=== PATIENT | female | born 1965 | race African-American/Black ===

== ENCOUNTER 2020-11-10 13:12 | Outpatient (CLI) | payer OTHER, SELFPAY ==
--- NOTE | ~2020-11-10 | MM_ITS ---
EXAMINATION: MM screening [facility] BI w luis e HISTORY: Screening mammogram TECHNIQUE: Craniocaudal and mediolateral oblique 3-D tomosynthesis images were obtained and synthetic 2-D images were generated. CAD analysis was submitted and interpreted. COMPARISON: 06/03/2019, 04/24/2018 BREAST PARENCHYMAL COMPOSITION: The breasts are almost entirely fatty. FINDINGS: There is no evidence of suspicious mass, calcification, or architectural distortion to sugg est malignancy in either breast. There has been no suspicious interval change. IMPRESSION: 1. No mammographic evidence of malignancy. 2. Recommend routine screening mammography in one year. BI-RADS Category 1: Negative Reviewed, dictated and finalized at location A.
--- NOTE | ~2020-11-10 | US_ITS ---
EXAMINATION: US pelvic complete w TV DATE: 11/10/2020 13:44 INDICATION: Pelvic pain. Comparison:Ultrasound dated 03/20/2018 TECHNIQUE: Multiple transabdominal and endovaginal sonographic images of the pelvis performed. FINDINGS: The uterus measures 10.5 x 6.6 x 7.6 cm. There is a heterogeneous hyperechoic mass of the u terus anteriorly measuring 5.2 x 4.9 x 4.3 cm, compatible with a fibroid. The endometrial complex laura sures 1 cm. The ovaries are not visualized. There is no free fluid in the pelvis. There are no abnormal masses seen on either side. IMPRESSION: 1. Enlarged uterus containing 5.2 cm fibroid anteriorly. Reviewed, dictated and finalized at location B.
== END 2020-11-10 13:13 ==
PROVIDERS: Visit Provider Obstetrics & Gynecology
DX: Z12.31 Encounter for screening mammogram for malignant neoplasm of breast (principal); R10.2 Pelvic and perineal pain; N85.2 Hypertrophy of uterus
CPT/HCPCS: 76830; 76856; 77063; 77067

== ENCOUNTER 2023-11-21 08:51 | Outpatient (CLI) | payer BC, SELFPAY ==
--- NOTE | ~2023-11-21 | US_ITS ---
Pelvic ultrasound. Clinical History: Postmenopausal bleeding Technique: Realtime transabdominal and transvaginal scanning of the pelvis was performed. Color flow Doppler and Doppler spectral analysis were performed. Findings: The uterus is anteverted. The endometrial stripe has a thickness of 4 mm. Large anterior w all fibroid measures 6.6 cm in diameter. Neither ovary seen. No other adnexal mass seen. There is no evidence of free fluid in the cul de sac. Impression: 6.6 cm anterior wall fibroid. No abnormal endometrial thickening seen. Reviewed, dictated and finalized at location . Impression: 6.6 cm anterior wall fibroid. No abnormal endometrial thickening seen.
== END 2023-11-21 08:52 ==
PROVIDERS: PCP Nurse Practitioner; Visit Provider Nurse Practitioner
DX: N95.0 Postmenopausal bleeding (principal); D25.9 Leiomyoma of uterus, unspecified
CPT/HCPCS: 76830

== ENCOUNTER 2023-12-24 02:02 | Day surgery (SDC) | payer BC, SELFPAY ==
[2023-12-17 15:28] VITALS: BMI 42.0
--- NOTE | 2023-12-17 15:36 | PC.NURSE ---
Report to the Outpatient Waiting Room, entrance under the green pavilion located off [facility], at time _0830_ on date _[id number]_. Planned Procedure Time: _1030_. Time changes happen often and if your time is changed the preop area will call you the afternoon before. - You and your visitor will be asked to self-screen and do not enter if you have any COVID symptoms. - A mask is optional within the hospital at this time. Patients may have clear liquids (water, carbonated beverages, clear teas, apple juice) until 3 hours prior to surgery with a maximum of 20 ounces. - No food from midnight until time of surgery Take the following medications with a SIP of water the morning of surgery: ___Carvidilol and Hydralazine DO NOT STOP ANY OF YOUR OTHER PRESCRIPTION MEDICATIONS PRIOR TO SURGERY ?EXCEPT THE FOLLOWING Medications to discontinue per physician Turmeric Date to take last [id number] Please no make-up, nail nauruan, hairspray, perfume, deodorant, or body powder the day of surgery. No jewelry (including any body piercings) or valuables the day of surgery, leave them at home. Please take a shower or bath the night before, or the morning of, surgery with an antibacterial soap. Wear comfortable, loose fitting clothing. - Jewelry must be removed prior to entering the operating room. Rings and piercings that are not removed may be cut off. - The hospital will not accept responsibility for valuables. - Please leave all valuables, including medications, at home the day of surgery. If you are going home after surgery, a licensed subway train driver must drive you home. - NO public transportation without another adult if you receive anesthesia. - We recommend that an adult stay with you for 24 hours following discharge. - We also recommend that you do not drive, make important decision, drink alcoholic beverages, or take any drugs that were not prescribed by your health care provider for at least 24 hours after your discharge time. Follow any additional instructions given to you from your surgeon. If you or anyone in your household have experienced Covid symptoms in the past week, please notify your surgeon or the nurse liaison at the phone number below for possible testing. Telephone instructions given to _Mauricio_and asked if any additional questions and then verbalized understanding. Patient advised to call surgeon office or pre surgery nurse liaison [phone] if any additional questions.
--- NOTE | 2023-12-24 07:17 | WPDHPUPDATE1 ---
History and Physical Update Update Date/Time: 12/24/23 07:17 History and Physical has been reviewed, including an updated exam of the patient. There are NO changes in the patient's condition. Risks, benefits, and alternatives have been discussed and questions answered. Patient agrees to proceed with procedure.
--- NOTE | 2023-12-24 07:17 | PM.HPGS ---
History of Present Illness History of Present Illness Consent: Risks, benefits, and alternatives have been discussed and questions answered. Patient agrees to proceed with procedure. Chief complaint: post menopausal bleeding Narrative: Mauricio Flores is a 58 year old female with postmenopausal bleeding. It is recommended to undergo D&C hysteroscopy for further evaluation. Risks of infection, bleeding, perforation, and possible pathology are reviewed. Patient was understanding and agrees to proceed. Review of Systems Review of Systems: not repeated day of surgery; patient states no changes in status [facility] Past Medical History Medical History (Updated 12/24/23 @ 07:20 by Feli Khan MD) Diabetes HTN (hypertension) Surgical History Surgical History (Updated 12/24/23 @ 07:19 by Feli Khan MD) History of bilateral tubal ligation History of x2 History of hysteroscopy 2014,2017,2020 Family History Family History (System 03/01/21 @ 14:49 by Patrick Mcgraw) Father Carcinoma of colon, Onset Age: 39 Mother Diabetes mellitus Hypertension Patient's mother is in good health Sibling Hypertension Patient's sister is in good health Patient's brother is in good health Social History Social History (System 03/01/21 @ 14:49 by Patrick Mcgraw) Smoking status: Never smoker Alcohol intake: never Living arrangements: with family Spiritual care concerns: No Meds Home Medications and Allergies Home Medications Medication Instructions Recorded Confirmed Type carvedilol 25 mg tablet 25 mg PO BID 12/17/23 12/17/23 History hydralazine 100 mg tablet 100 mg PO TID 12/17/23 12/17/23 History turmeric 400 mg capsule 400 mg PO DAILY PRN Pain 12/17/23 12/17/23 History Allergies Allergy/AdvReac Type Severity Reaction Status Date / Time hydrocodone AdvReac Mild RASH Unverified 12/17/23 15:24 strawberry AdvReac Mild RASH/ITCHIN Unverified 12/17/23 15:24 G Exam Const: General: healthy appearing and alert Orientation/consciousness: patient oriented x3 Resp: Effort & Inspection: normal respiratory effort : External Female Exam: normal external appearance Speculum Exam - Vagina: normal appearance of the vagina and normal vaginal discharge Speculum Exam - Cervix: normal appearance of the cervix Bimanual exam- vagina & uterus: uterine size normal and consistency normal Bimanual Exam- Adnexa, other: normal adnexae and No adnexal tenderness Neuro: General: patient oriented x3 Assessment and Plan Assessment and plan (1) Post-menopausal bleeding: Code(s): N95.0 - Postmenopausal bleeding Status: Acute Assessment and Plan: plan to proceed with D&C hysteroscopy
--- NOTE | 2023-12-24 09:23 | P.PNAN_ITS ---
Anes - Initial Pre Proc Eval Procedure: Operation Date: 12/24/23 10:30 Proposed Procedures p Hysteroscopy Dilation and Curettage - Feli Khan MD Date/Time: 12/24/23 09:23 Surgeon: Feli Khan MD Pre Op Diagnosis: post menopausal bleeding Patient Data Age: 58 Gender: F Height: 1.68 m Weight: 118 kg Allergies Allergy/AdvReac Type Severity Reaction Status Date / Time hydrocodone Allergy Mild RASH Unverified 12/24/23 07:58 strawberry AdvReac Mild RASH/ITCHIN Unverified 12/17/23 15:24 G Home Medications Medication Instructions Recorded Confirmed Type carvedilol 25 mg tablet 25 mg PO BID 12/17/23 12/17/23 History hydralazine 100 mg tablet 100 mg PO TID 12/17/23 12/17/23 History turmeric 400 mg capsule 400 mg PO DAILY PRN Pain 12/17/23 12/17/23 History Patient hx anesthesia problems: none Family hx anesthesia problems: none Results Review: All pre-operative results and documents have been reviewed as part of the pre- operative evaluation. [facility] Past Medical History Medical History Diabetes HTN (hypertension) Surgical History Surgical History History of bilateral tubal ligation History of x2 History of hysteroscopy 2014,2017,2020 Family History Family History (System 03/01/21 @ 14:49 by Patrick Mcgraw) Father Carcinoma of colon, Onset Age: 39 Mother Diabetes mellitus Hypertension Patient's mother is in good health Sibling Hypertension Patient's sister is in good health Patient's brother is in good health Social History Social History (System 03/01/21 @ 14:49 by Patrick Mcgraw) Smoking status: Never smoker Alcohol intake: never Living arrangements: with family Spiritual care concerns: No Anes - Eval Final PreProcedure Day of Procedure 12/24/23 09:23 Patient weight: morbidly obese Heart: regular rate and rhythm Lungs: clear to auscultation Airway: Mallampati scale and special considerations (Missing 2 upper teeth, back. ) Neurological: alert and oriented Last oral intake: >/= 8 hours ASA classification: III Emergent: no Anesthetic plan: proceed Anesthesia type and monitoring: general GIVS and standard monitoring Results Review: All pre-operative results and documents have been reviewed as part of the pre- operative evaluation. Informed Consent: The patient's anesthetic plan and its attendant risks and benefits were discussed with the patient/family/POA. Questions were solicited and answers provided to the satisfaction of the patient/family/POA.
[2023-12-24 09:25] VITALS: BP 183/66; PULSE 54; RESP 14; TEMP 36.1; O2SAT 99
[2023-12-24] MEDS: LACTATED RINGERS 1,000 ML 30 ML IV CONT (09:25)
[2023-12-24] MEDS: ACETAMINOPHEN 500 MG TABLET 1000 MG PO (09:25)
[2023-12-24 09:31] LABS: Glucose Point of Care 93 mg/dl (65-105)
[2023-12-24] MEDS: KETOROLAC 30 MG/ML VIAL (*BKC) IV PUSH (10:04)
[2023-12-24 10:13] VITALS: BP 155/72; PULSE 49; RESP 16; O2SAT 96
--- NOTE | 2023-12-24 10:15 | W.PM.PROC2 ---
Procedure Note - Detailed Date of Procedure 12/24/23 Pre-op Diagnosis post menopausal bleeding Post-op Diagnosis Same Procedure Performed Hysteroscopy with D&C Surgeon Feli Khan MD Anesthesia MAC Findings uterus sounds to 10cm and appears grossly very vascular there is an adhesion from the anterior to posterior wall approximately 1/2cm wide near the endocervical junction Description of Procedure The patient is taken to the operating room and placed under anesthesia in the dorsal lithotomy position. She was prepped and draped in the usual sterile fashion. [place] speculum was placed in the vagina and the cervix grasped on the anterior lip with a tenaculum. The cervix is unable to be entered with the uterine sound. The small Hegar dilator is used to enter the endocervix. Uterus is then sounded to 10cm and noted to be quite anteverted. The hysteroscope was placed and the above-stated findings are noted. The adhesion was able to be removed from the posterior wall using the hysteroscope. The remainder of the endometrium appears grossly normal except it is very vascular. The hysteroscope is removed and the OO sharp curette is used to curette the endometrium until a good uterine cry was noted in all areas. All instruments are removed. Sponge, needle, and instrument counts are correct per the OR staff. The patient was awakened from anesthesia and taken to recovery in stable condition. Estimated Blood Loss 5 Drains No Packing No Pathology Yes ( Endometrial curettings) Complications No immediate complications Condition Stable Disposition PACU
[2023-12-24 10:32] LABS: Glucose Point of Care 90 mg/dl (65-105)
[2023-12-24 10:45] VITALS: BP 178/78; PULSE 48; RESP 16; O2SAT 96
[2023-12-24 11:15] VITALS: BP 194/75; PULSE 54; RESP 16
[2023-12-24] MEDS: hydrALAZINE HCL 20 MG/ML VIAL 5 MG IV PUSH ×2 (11:18→11:43)
[2023-12-24 11:45] VITALS: BP 198/81; PULSE 51; RESP 16
[2023-12-24 12:15] VITALS: BP 169/66; PULSE 51; RESP 20
== END 2023-12-24 12:18 | disposition home or self-care (01) ==
PROVIDERS: PCP Nurse Practitioner; Visit Provider Obstetrics & Gynecology Gynecology
PROC: 0U5B8ZZ Destruction of Endometrium, Via Natural or Artificial Opening Endoscopic (ICD-10-PCS; CPT 58563; principal; 2023-12-24 10:30)
DX: N95.0 Postmenopausal bleeding (principal); N73.6 Female pelvic peritoneal adhesions (postinfective); I10 Essential (primary) hypertension; E11.9 Type 2 diabetes mellitus without complications; E66.01 Morbid (severe) obesity due to excess calories; Z68.41 Body mass index [BMI] 40.0-44.9, adult; Z98.890 Other specified postprocedural states; Z98.51 Tubal ligation status; Z80.0 Family history of malignant neoplasm of digestive organs
CPT/HCPCS: 58558; 82948; 88305; A9270; J0360; J1885; J2250; J2405; J2704; J3010; J7120

== ENCOUNTER 2024-03-19 10:20 | Outpatient (CLI) | payer BC, SELFPAY ==
--- NOTE | ~2024-03-19 | MM_ITS ---
EXAMINATION: MM screening [facility] BI w luis e HISTORY: Screening TECHNIQUE: Craniocaudal and mediolateral oblique 3-D tomosynthesis images were obtained and synthetic 2-D images were generated. CAD analysis was submitted and interpreted. COMPARISON: Comparison to multiple prior studies sequentially, with oldest reviewed study dated 04/24. BREAST PARENCHYMAL COMPOSITION: There are scattered areas of fibroglandular density. FINDINGS: There is no evidence of suspicious mass, calcification, or architectural distortion to sugg est malignancy in either breast. There has been no suspicious interval change. IMPRESSION: 1. No mammographic evidence of malignancy. 2. Recommend routine screening mammography in one year. BI-RADS Category 1: Negative Reviewed, dictated and finalized at location B.
== END 2024-03-19 10:21 ==
LOC: MICIMG 10:21
PROVIDERS: PCP Nurse Practitioner; Visit Provider Nurse Practitioner
DX: Z12.31 Encounter for screening mammogram for malignant neoplasm of breast (principal)
CPT/HCPCS: 77063; 77067

== ENCOUNTER 2024-07-01 09:53 | Outpatient (CLI) | payer BC, SELFPAY ==
--- NOTE | ~2024-07-01 | MR_ITS ---
EXAMINATION: MR knee RT wo con DATE: 07/01/2024 11:01 INDICATION: Right knee pain TECHNIQUE: Magnetic resonance imaging (MRI) of the right knee was performed without intravenous contr ast. Sequences included coronal PD-weighted FSE, coronal PD-weighted FS FSE, sagittal T2-weighted FS E, sagittal PD-weighted FS FSE and axial PD weighted fat saturated FSE. COMPARISON: None. FINDINGS: Medial compartment: Medial meniscus is normal. Articular cartilage is normal. Lateral compartment: There is a longitudinal horizontal tear extending to the inferior articular surface extending from th e anterior to the posterior horn. There is an 11 x 5 x 3 mm para meniscal cyst along the periphery of the anterior horn. Articular cartilage is normal. There are small marginal osteophytes along the stanley ghtbearing lateral femoral condyle and lateral tibial plateau. Patellofemoral compartment: There is diffuse partial thickness patellar cartilage loss with more focal deeper chondral ulceration and fissuring with mild scattered underlying subarticular edema-like signal change including at the medial and lateral patellar facets and apical ridge. Mild partial-thickness tear cartilage loss with subtle scattered chondral surface irregularity. Ligaments and tendons: Anterior and posterior cruciate ligaments are normal. The medial collateral ligament and fibular ila ateral ligament complex are normal. Small enthesophytes and mild tendinopathy at the patellar inserti on of the distal quadriceps and proximal patellar tendons. The visualized medial and lateral hamstrin g tendons as well as the iliotibial band are normal. Fluid: Moderate-sized right knee joint effusion. No loose osteochondral bodies identified. Osseous/other: Aside from the mild subarticular edema-like signal change at the patella there is normal bone marrow signal throughout. No fracture or pathologic marrow replacing process. IMPRESSION: 1. Longitudinal horizontal lateral meniscal tear with small para meniscal cyst along the periphery of the anterior horn. 2. 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 3. Moderate-sized right knee joint effusion. Reviewed, dictated and finalized at location B. ATRIC PHYSICIAN IMPRESSION: 1. Longitudinal horizontal lateral meniscal tear with small para meniscal cyst along the periphery of the anterior horn. 2. Mild lateral and patellofemoral osteoarthritis with high-grade patellar edouard dromalacia. 3. Moderate-sized right knee joint effusion.
== END 2024-07-01 09:54 | disposition home or self-care (01) ==
LOC: MICIMG 09:54
PROVIDERS: PCP Orthopaedic Surgery; Visit Provider Orthopaedic Surgery
DX: M25.461 Effusion, right knee (principal); M17.11 Unilateral primary osteoarthritis, right knee; S83.281A Other tear of lateral meniscus, current injury, right knee, initial encounter; X58.XXXA Exposure to other specified factors, initial encounter
CPT/HCPCS: 73721

== ENCOUNTER 2024-07-19 09:40 | Outpatient (CLI) | payer BC, SELFPAY ==
--- NOTE | 2024-07-19 10:06 | ECG_ITS ---
Test Date: 2024-07-19 10:16:40 Measurements Intervals [place] Rate: 54 P: 29 ME: 128 QRS: 47 QRSD: 88 T: 129 QT: 447 QTc: 426 Interpretive Statements SINUS BRADY[address]ARDIA ST DEVIATION AND MODERATE T-WAVE ABNORMALITY, CONSIDER LATERAL ISCHEMIA [-0.1+ mV T-WAVE IN I/aVL/V5/V6] No previous ECG available for comparison Electronically Signed On 07-19-2024 14:45:48 HERITAGE CONSULTANT by Duncan Castro M.D.
[2024-07-19 10:09] LABS: Anion Gap 1 mmol/L (4-12); Blood Urea Nitrogen 18 mg/dL (7-17); Carbon Dioxide 32 mmol/L (22-30); Chloride 104 mmol/L (98-107); Estimated Glomerular Filt Rate 56; Glucose 147 mg/dL (65-110); Potassium 3.7 mmol/L (3.4-5.0); Sodium 137 mmol/L (137-145)
== END 2024-07-19 09:41 | disposition home or self-care (01) ==
LOC: ANHLAB 09:42
PROVIDERS: PCP Nurse Practitioner; Visit Provider Anesthesiology
DX: E11.9 Type 2 diabetes mellitus without complications (principal); I10 Essential (primary) hypertension
CPT/HCPCS: 36415; 80048; 93005

== ENCOUNTER 2024-07-28 00:42 | Day surgery (SDC) | payer BC, SELFPAY ==
[2024-07-18 12:52] VITALS: BMI 44.3
--- NOTE | 2024-07-18 13:18 | PC.NURSE ---
Report to the Outpatient Waiting Room, entrance under the green pavilion located off [facility], at time __6:00AM on date _ Sunday07/28/24 . Planned Procedure Time: _7:30AM .? Time changes happen often and if your time is changed the preop area will call you the afternoon before. - You and your visitor will be asked to self-screen and do not enter if you have any COVID symptoms. Please call surgeon if you need to reschedule. - A mask is optional within the hospital at this time. Patients may have clear liquids (water, carbonated beverages, clear teas, apple juice) until 3 hours prior to surgery with a maximum of 20 ounces. - No food from midnight until time of surgery and no smoking. This includes no chewing gum, candy or mints. Take only the following medications with a SIP of water on the morning of surgery: _CARVEDILOL, ISOSORBIDE, HYDRALAZINE DO NOT STOP ANY OF YOUR OTHER PRESCRIPTION MEDICATIONS PRIOR TO SURGERY EXCEPT THE FOLLOWING Medications to discontinue per physician NONE Date to take last dose Please no make-up, nail luxembourgish, hairspray, perfume, deodorant, or body powder the day of surgery.? No jewelry (including any body piercings) or valuables the day of surgery, leave them at home.? Please take a shower or bath the night before, or the morning of, surgery with an antibacterial soap.? Wear comfortable, loose fitting clothing.? - Jewelry must be removed prior to entering the operating room.? Rings and piercings that are not removed may be cut off. - The hospital will not accept responsibility for valuables.? - Please leave all valuables, including medications, at home the day of surgery. If you are going home after surgery, a licensed commercial driver must drive you home.? - NO public transportation without another adult if you receive anesthesia. - We recommend that an adult stay with you for 24 hours following discharge. - We also recommend that you do not drive, make important decision, drink alcoholic beverages, or take any drugs that were not prescribed by your health care provider for at least 24 hours after your discharge time. Follow any additional instructions given to you from your surgeon. Telephone instructions given to TO and asked if any additional questions and then verbalized understanding. Patient advised to call surgeon office or pre surgery nurse liaison [phone] if any additional questions.
--- NOTE | 2024-07-24 07:29 | PM.IMHP ---
H&P: HPI History of Present Illness Date/Time: 07/24/24 07:29 Chief Complaint: Patient has complaints of knee pain right. He has a meniscal tear with catching and locking. This has been unresponsive to conservative treatment today. He has pain laterally. Review of Systems Musculoskeletal: Musculoskeletal: Reports arthralgias, Reports joint swelling and Reports stiffness Neurologic: Reports abnormal gait [facility] Past Medical History Medical History Diabetes HTN (hypertension) Surgical History Surgical History History of bilateral tubal ligation History of x2 History of cholecystectomy History of dilation and curettage History of hysteroscopy 2014,2017,2020 Family History Family History Father Carcinoma of colon, Onset Age: 39 Mother Diabetes mellitus Hypertension Patient's mother is in good health Sibling Hypertension Patient's sister is in good health Patient's brother is in good health Social History Social History (Updated 07/17/24 @ 09:03 by Fior Daigle CMA) Smoking status: Never smoker Second hand tobacco smoke exposure: No Alcohol intake: never Substance use: never Substance use type: does not use Do You Feel Safe in your Home?: Yes Lack of Transportation: No Lack of Food: Never True Current Housing: I Have Housing Concerned About Future Housing: No Difficulty Paying Gas/Electric Bills: Decline to Answer Difficulty Paying for Meds: No Currently Unemployed: No Education: High School Diploma/GED Difficulty w/ Childcare or Family Care: No Living arrangements: with family Occupation/Education: occupation 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 Gender identity (if verbalized by the patient): Female Spiritual care concerns: No Meds Home Medications and Allergies Home Medications ?Medication ?Instructions ?Recorded ?Confirmed ?Type carvedilol 25 mg tablet 25 mg PO BID 12/17/23 07/18/24 History hydralazine 100 mg tablet 100 mg PO TID 12/17/23 07/18/24 History isosorbide mononitrate 10 mg tablet 10 mg PO BID 07/17/24 07/18/24 History lisinopril 20 1 tablet PO DAILY 07/17/24 07/18/24 History mg-hydrochlorothiazide 25 mg tablet Allergies Allergy/AdvReac Type Severity Reaction Status Date / Time hydrocodone Allergy Mild RASH Verified 07/17/24 08:10 strawberry AdvReac Mild RASH/ITCHIN Verified 07/17/24 08:10 G Exam Narrative: On exam he is tender medially he has catching locking and pain on the laterall aspect of the knee is mechanical-type symptoms. He is able to walk with a limp. Neurologically appears to be grossly intact. He has a positive Adam's and tenderness along the joint line. Eyes: General: appearance normal, both eyes and all related structures Neck: Neck: supple Resp: Effort & Inspection: normal respiratory effort Cardio: Rate: regular rate Rhythm: regular rhythm Radiology Reports: Comments: Patient: Mauricio Becerril EXAMINATION: MR knee RT wo con DATE: 07/01/2024 11:01 INDICATION: Right knee pain TECHNIQUE: Magnetic resonance imaging (MRI) of the right knee was performed without intravenous contrast. Sequences included coronal PD-weighted FSE, coronal PD-weighted FS FSE, sagittal T2-weighted FSE, sagittal PD-weighted FS FSE and axial PD weighted fat saturated FSE. COMPARISON: None. FINDINGS: Medial compartment: Medial meniscus is normal. Articular cartilage is normal. Lateral compartment: There is a longitudinal horizontal tear extending to the inferior articular surface extending from the anterior to the posterior horn. There is an 11 x 5 x 3 mm para meniscal cyst along the periphery of the anterior horn. Articular cartilage is normal. There are small marginal osteophytes along the weightbearing lateral femoral condyle and lateral tibial plateau. Patellofemoral compartment: There is diffuse partial thickness patellar cartilage loss with more focal deeper chondral ulceration and fissuring with mild scattered underlying subarticular edema-like signal change including at the medial and lateral patellar facets and apical ridge. Mild partial-thickness tear cartilage loss with subtle scattered chondral surface irregularity. Ligaments and tendons: Anterior and posterior cruciate ligaments are normal. The medial collateral ligament and fibular collateral ligament complex are normal. Small enthesophytes and mild tendinopathy at the patellar insertion of the distal quadriceps and proximal patellar tendons. The visualized medial and lateral hamstring tendons as well as the iliotibial band are normal. Fluid: Moderate-sized right knee joint effusion. No loose osteochondral bodies identified. Osseous/other: Aside from the mild subarticular edema-like signal change at the patella there is normal bone marrow signal throughout. No fracture or pathologic marrow replacing process. IMPRESSION: 1. Longitudinal horizontal lateral meniscal tear with small para meniscal cyst along the periphery of the anterior horn. 2. 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 3. Moderate-sized right knee joint effusion. Reviewed, dictated and finalized at location B. STANCE REPRESENTATIVE Hip/Pelvis X-Ray 01/22/24 Knee X-Ray 06/10/24 Knee MRI 07/01/24 Orthopedics Result Report 06/10/24 Assessment and Plan Assessment and plan (1) Acute lateral meniscus tear of right knee: Code(s): S83.281A - Other tear of lateral meniscus, current injury, right knee, initial encounter Status: Acute Assessment and Plan: Patient is a lateral meniscal tear right knee. He has catching and locking mechanical type symptoms. He has a positive MRI that demonstrates a tear. He would like to proceed with arthroscopic intervention he has failed conservative treatment. Will proceed with arthroscopy partial meniscectomy proceed as indicated. I have discussed risks, benefits, limitations, and alternatives with the patient in detail he agrees and understands would like to proceed.
[2024-07-28] VITALS (11 sets, daily range): BP systolic 121–143; BP diastolic 47–69; PULSE 47–61; RESP 12–18; TEMP 36.2–36.4; O2SAT 96–100
--- NOTE | 2024-07-28 06:28 | P.PNAN_ITS ---
Anes - Initial Pre Proc Eval Procedure: Operation Date: 07/28/24 07:30 Proposed Procedures p Right Knee Arthroscopy Partial Meniscectomy, Proceed as Indicated - Jeyson Lowery MD Date/Time: 07/28/24 06:28 Surgeon: eJyson Lowery MD Pre Op Diagnosis: right lateral meniscal tear Patient Data Age: 59 Gender: F Height: 1.66 m Weight: 122.7 kg Allergies Allergy/AdvReac Type Severity Reaction Status Date / Time hydrocodone Allergy Mild RASH Verified 07/17/24 08:10 strawberry AdvReac Mild RASH/ITCHIN Verified 07/17/24 08:10 G Home Medications ?Medication ?Instructions ?Recorded ?Confirmed ?Type carvedilol 25 mg tablet 25 mg PO BID 12/17/23 07/18/24 History hydralazine 100 mg tablet 100 mg PO TID 12/17/23 07/18/24 History isosorbide mononitrate 10 mg tablet 10 mg PO BID 07/17/24 07/18/24 History lisinopril 20 1 tablet PO DAILY 07/17/24 07/18/24 History mg-hydrochlorothiazide 25 mg tablet Patient hx anesthesia problems: none Family hx anesthesia problems: none Results Review: All pre-operative results and documents have been reviewed as part of the pre- operative evaluation. [facility] Past Medical History Medical History (Updated 07/28/24 @ 06:29 by Jose E Maloney DO) Fibroid Glaucoma CVA (cerebral vascular accident) Diabetes HTN (hypertension) Surgical History Surgical History History of dilation and curettage History of cholecystectomy History of hysteroscopy 2014,2017,2020 History of bilateral tubal ligation History of x2 Family History Family History Father Carcinoma of colon, Onset Age: 39 Mother Diabetes mellitus Hypertension Patient's mother is in good health Sibling Hypertension Patient's sister is in good health Patient's brother is in good health Social History Social History (Updated 07/17/24 @ 09:03 by Fior Daigle CMA) Smoking status: Never smoker Second hand tobacco smoke exposure: No Alcohol intake: never Substance use: never Substance use type: does not use Do You Feel Safe in your Home?: Yes Lack of Transportation: No Lack of Food: Never True Current Housing: I Have Housing Concerned About Future Housing: No Difficulty Paying Gas/Electric Bills: Decline to Answer Difficulty Paying for Meds: No Currently Unemployed: No Education: High School Diploma/GED Difficulty w/ Childcare or Family Care: No Living arrangements: with family Occupation/Education: occupation Additional occupation/education comments: work at [employer] Gender identity (if verbalized by the patient): Female Spiritual care concerns: No Anes - Eval Final PreProcedure Day of Procedure 07/28/24 06:28 Patient weight: morbidly obese Heart: regular rate and rhythm Lungs: clear to auscultation Airway: Mallampati scale class II Neurological: alert and oriented Last oral intake: >/= 8 hours ASA classification: III Emergent: no Anesthetic plan: proceed Anesthesia type and monitoring: general LMA and standard monitoring Results Review: All pre-operative results and documents have been reviewed as part of the pre- operative evaluation. Informed Consent: The patient's anesthetic plan and its attendant risks and benefits were discussed with the patient/family/POA. Questions were solicited and answers provided to the satisfaction of the patient/family/POA.
[2024-07-28 06:49] LABS: Glucose Point of Care 146 mg/dl (65-105)
--- NOTE | 2024-07-28 06:56 | WPDHPUPDATE1 ---
History and Physical Update Update Date/Time: 07/28/24 06:56 History and Physical has been reviewed, including an updated exam of the patient. There are NO changes in the patient's condition. Risks, benefits, and alternatives have been discussed and questions answered. Patient agrees to proceed with procedure. Patient understands that I can't change the degenerative changes in the knee.
[2024-07-28] MEDS: ACETAMINOPHEN 500 MG TABLET 1000 MG PO (07:00)
[2024-07-28] MEDS: LACTATED RINGERS 1,000 ML 30 ML IV CONT (07:00)
[2024-07-28] MEDS: KETOROLAC 15 MG/ML VIAL (*BKC) IV PUSH (07:00)
[2024-07-28] MEDS: ceFAZolin 3 GM/D5W 100 ML 100 ML IVPB (07:25)
[2024-07-28] MEDS: LIDO 1%/EPINEPHRINE 1:100,000 50 ML VIAL INFILTRATE (07:46)
--- NOTE | 2024-07-28 07:55 | W.PM.PROC2 ---
Procedure Note - Detailed Date of Procedure 07/28/24 Pre-op Diagnosis RIGHT lateral meniscal tear Post-op Diagnosis Same Procedure Performed RIGHT knee arthroscopy with partial meniscectomy Surgeon Jeyson Lowery MD Anesthesia General Indications Pain and catching Description of Procedure Patient brought to operating room # 8. An anesthetic was administered. The knee was sterilely prepped and draped in the usual manner. Standard portals were used. Superior medial portal was used for the outflow cannula, inferior lateral portal was used for the scope, inferior medial portal was used for the instruments. Arthroscopy was performed, the patellar femoral joint degenerative changes. The medial compartment showed fraying. The lateral compartment showed a complex tear. The ACL was intact. Using baskets and cristina the meniscal tear was trimmed back to a stable base so the nothing further could be pulled into the joint. Any loose or delaminated fragments were gently trimmed to a stable base. She had grade 2-3 changes throughout the knee. At this point the instruments were withdrawn, sutures placed and patient left the operating room in satisfactory condition. Estimated Blood Loss 20 Drains No Packing No Pathology None sent Complications No immediate complications Condition Stable Disposition PACU [facility] Billing Surgery - Charge Forward: Surgery Billing (26265 Scope Partial)
[2024-07-28 08:28] LABS: Glucose Point of Care 147 mg/dl (65-105)
--- OUTSIDE RECORDS SUMMARY | 2024-08-02 09:58 | XMS_ITS | Encounter Summary ---
Author Organization [facility] Health Address [address] [place] [address] Care Team Providers Care Hands Parter Name Role Phone Neil Velasquez MD Primary Care Provider Encounter Details Date Type Department Care Team (Latest Contact Info) Description 07/24/2024 Travel Social History Tobacco Use Types Packs/Day Years Used Date Smoking Tobacco: Never Smokeless Tobacco: Never Alcohol Use Standard Drinks/Week Comments Yes 1 (1 standard drink = 0.6 oz pur e alcohol) socially PHQ-2 Answer Date Recorded Patient Health Questionnaire-2 Score 0 07/24/2024 Sex and Gender Information Value Date Recorded Sex Assigned at Not on file Gender Identity Not on file Sexual Orientation Not on file documented as of this encounter Plan of Treatment Upcoming Encounters Date Type Department Care Team (Late st Contact Info) Description 12/15/2024 1:00 PM CDT Office Visit [facility] - Internal Med [address] [place] [address] Neil Velasquez MD [address] [place], [place] [id number] documented as of this encounter Visit Diagnoses Not on filedocumented in this encounter Care Teams Hands Parter Relationship Specialty Start Date End Date Neil Velasquez MD [address] [place], [place] [id number] PCP - General Internal Medicine 10/24/23 documented as of this encounter
--- OUTSIDE RECORDS SUMMARY | 2024-08-02 09:58 | XMS_ITS | Referral Summary ---
Author Organization [facility] Address [address] [place] [address] Care Team Providers Care Mechanical Service Representative Name Role Phone Neil Velasquez MD Primary Care Provider [phone] Source Comments [facility],non-owned Affiliates and Associated Physician Practices is amultiple site organization consisting of ambulatory clinics and hospital sitesin [place], [place], [place] and [place]. This disclosure is being madepursuant to the Care Everywhere program and may not contain all information available regarding this patient. Last updated 18.[facility] Encounters Date Type Department Care Team Description 07/24/2024 Travel 07/24/2024 1:30 PM AIRPORT DUTY MANAGER Office Visit [facility] - Internal Med [address] [place] [phone] Tami Comer DO Pre-op evaluation (Primary Dx) 07/21/2024 Telephone [facility] - Internal Med [address] [place] [phone] Neil Velasquez MD Forms (/) 07/21/2024 Travel 07/03/2024 4:30 PM AIRPORT DUTY MANAGER - 07/03/2024 11:59 PM AIRPORT DUTY MANAGER Hospital Encounter [facility] [address] [place] [address] Discharge Disposition: Home or Self Care 07/03/2024 Travel 07/03/2024 3:30 PM AIRPORT DUTY MANAGER Office Visit [facility] - Internal Med [address] [place] [address] Tami Comer DO Resistant hypertension (Primary Dx); Cramps of lower extremity 05/08/2024 Travel 05/08/2024 1:30 PM CDT Office Visit [facility] - Internal Med [address] [place] [address] Wound of left lower extremity, initial encounter (Primary Dx); Chronic left-sided low back pain with left-sided sciatica 05/07/2024 Travel 05/06/2024 Travel 05/06/2024 9:25 AM CDT - 05/06/2024 11:59 PM CDT Hospital Encounter [facility] [address] [place] [address] Discharge Disposition: Home or Self Care from Last 3 Months Allergies Active Allergy Reactions Criticality Noted Date Comments Hydrocodone-Acetaminophen Rash 03/26/2008 Vicodin [place] Itching Low 04/06/2016 Medications * Be aware that medications may not be up to date on this document. Alwaysverify current medications with the patient. Medication Sig Dispensed Refills Start Date End Date Status Glucose Blood (BLOOD GLUCOSE TEST STRIPS) STRP Use 1 strip TID. 100 strip 11 07/03/2017 Active Additional Information Patient not taking.Reported on 07/03/2024 LANCETS SUPER THIN 28G MISC Use TID. 100 11 03/13/2017 Active Additional Information Patient not taking.Reported on 07/24/2024 aspirin (ASPIRIN) 81 MG tablet 100 tablet 04/06/2016 Active Ascorbic Acid (ALPHONSE-C PO) Active VITAMIN D PO Active atorvastatin (Lipitor) 40 MG tabletIndications:Es sential hypertension,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),Hyperlipidemia , unspecified hyperlipidemia type Take 1 (one) tablet by mouth once daily 100 tablet 4 05/21/2023 Active Additional Information Patient not taking.Reported on 07/24/2024 tobramycin-dexAMETHa sone (Tobradex) 0.3-0.1 % ophthalmic suspension 09/13/2023 Active lisinopril-hydroCHLO ROthiazide (Prinzide; Zestoretic) 20-25 MG tabletIndications:Re sistant hypertension Take 1 (one) tablet by mouth once daily 90 tablet 3 10/24/2023 Active hydrALAZINE (Apresoline) 100 MG tabletIndications:Re sistant hypertension Take 1 (one) tablet by mouth 3 times daily 270 tablet 3 10/24/2023 Active isosorbide mononitrate CR 24hr (Imdur) 30 MG tabletIndications:Re sistant hypertension Take 1 (one) tablet by mouth once daily 90 tablet 4 10/24/2023 Active carvedilol (Coreg) 25 MG tabletIndications:Es sential hypertension TAKE 1 TABLET BY MOUTH TWICE A DAY WITH MORNING AND EVENING MEAL 180 tablet 2 01/09/2024 Active Active Problems Problem Noted Date Diagnosed Date Left hip pain 03/31/2024 Secondary cataract of right eye 10/24/2023 Healthcare maintenance 09/17/2023 Hypotension due to medication 08/14/2023 Resistant hypertension 07/11/2023 Insomnia 03/14/2023 Chronic heart failure with preserved ejection fr action 04/06/2021 Iron deficiency anemia 01/06/2021 Hyperlipidemia 02/25/2019 Nephropathy 02/25/2019 Microcytosis 02/25/2019 Isolated proteinuria 12/30/2018 Class 3 severe obesity with serious comorbidity and body mass index (BMI) of 45.0 to 49.9 in adult 11/19/2018 Type 2 diabetes mellitus with complications 08/14 Overview (11/12/2017): Eye exam 08/17/2015 Personal history of transien t ischemic attack (TIA), and cerebral infarction without residual deficits 04/12/2015 Family history of ischemic h eart disease and other diseases of the circulatory system 09/19/2014 Essential hypertension 08/31/2014 Resolved Problems Problem Noted Date Diagnosed Date Resolved Date Diabetic polyneuropathy asso ciated with type 1 diabetes mellitus 08/30/2023 10/24/2023 Preventative health care 01/06/2021 Pericardial cyst 02/25/2019 10/24/2023 Pain of both shoulder joints 11/19/2018 06/17/2019 Right upper quadrant abdominal pain 11/19/2018 03/14/2023 Impacted cerumen of right ear 11/19/2018 12/03/2018 Hypertensive emergency 04/12/201511/26 Immunizations Name Administration Dates Next Due Covid Pfizer primary monoval ent 12+ yr 0.3mL Purple cap 08/10/2021,12/23/2020,11/24/2020 FLU, HISTORIC VACCINE 08/13/2017 HEP B, HISTORIC VACCINE [birth year], INFLUENZA 08/13/2017 TDAP (7yrs+) 11/19/2018 Zoster Hzv Vacc Recombinant Inj Im 07/11/2023 Social History Tobacco Use Types Packs/Day Years Used Date Smoking Tobacco: Never Smokeless Tobacco: Never Tobacco Cessation:Counseling Given: Not Answered Alcohol Use Standard Drinks/Week Comments Yes 1 (1 standard drink = 0.6 oz pur e alcohol) socially PHQ-2 Answer Date Recorded Patient Health Questionnaire-2 Score 0 07/24/2024 Sex and Gender Information Value Date Recorded Sex Assigned at Not on file Gender Identity Not on file Sexual Orientation Not on file Last Filed Vital Signs Vital Sign Reading Time Taken Comments Blood Pressure 138/80 07/24/2024 1:27 PM AIRPORT DUTY MANAGER Pulse 72 07/24/2024 1:27 PM AIRPORT DUTY MANAGER Temperature 36.8 ??C (98.2 ??F) 05/08/2024 1:27 PM CD T Respiratory Rate 18 07/24/2024 1:27 PM AIRPORT DUTY MANAGER Oxygen Saturation 97% 07/24/2024 1:27 PM AIRPORT DUTY MANAGER Inhaled Oxygen Concentration - - Weight 121.3 kg (267 lb 6.4 oz) 07/24/2024 1:27 PM AIRPORT DUTY MANAGER Height 167.6 cm (5' 6 ) 07/24/2024 1:27 PM AIRPORT DUTY MANAGER Body Mass Index 43.16 07/24/2024 1:27 PM AIRPORT DUTY MANAGER Plan of Treatment Upcoming Encounters Date Type Department Care Team (Late st Contact Info) Description 12/15/2024 1:00 PM CDT Office Visit [facility] - Internal Med [address] [facility] [place] [address] Neil Velasquez MD [address] [facility] [place] [address] Procedures Procedure Name Priority Date/Time Associated Diagnosis Comments BASIC METABOLIC PANEL (CALCIUM TOTAL) Routine 07/03/2024 4:40 PM AIRPORT DUTY MANAGER Cramps of lower extremity MAGNESIUM BLOOD Routine 07/03/2024 4:40 PM AIRPORT DUTY MANAGER Cramps of lower extremity MICROALB/CREAT RATIO URINE RANDOM PANEL Routine 05/06/2024 9:56 AM CDT 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) IRON BLOOD Routine 05/06/2024 9:50 AM CDT Iron deficiency anemia, unspecified iron deficiency anemia type HEMOGLOBIN A1C Routine 05/06/2024 9:50 AM CDT 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) CBC W/O DIFFERENTIAL Routine 05/06/2024 9:50 AM CDT Iron deficiency anemia, unspecified iron deficiency anemia type BASIC METABOLIC PANEL (CALCIUM TOTAL) Routine 05/06/2024 9:50 AM CDT 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) MAMMO BILAT SCREENING W JAY Routine 12/28/2022 9:25 AM CDT Preventative health care ENDOSCOPY, COLON, SCREENING Routine 12/08/2020 2:44 PM CDT EYE EXAM 06/03/2019 6:27 AM CDT HEPATITIS C ANTIBODY Routine 09/04/2014 9:30 AM AIRPORT DUTY MANAGER from Last 3 Months or Most Recently Relevant to Health Maintenance Results * (ABNORMAL) BASIC METABOLIC PANEL (CALCIUM TOTAL) (07/03/2024 4:40 PM AIRPORT DUTY MANAGER) Only the most recent of2 resultswithin the time period is included. BUN 33(H) 7 - 26 mg/dL 07/03/2024 5:24 PM AIRPORT DUTY MANAGER [facility] Creatinine 1.32(H) 0.56 - 0.96 mg/dL 07/03/2024 5:24 PM [facility] Sodium 141 136 - 145 mmol/L 07/03/2024 5:24 PM [facility] Potassium 4.0 3.5 - 4.5 mmol/L 07/03/2024 5:24 PM [facility] Chloride 110(H) 98 - 107 mmol/L 07/03/2024 5:24 PM [facility] CO2 25 22 - 29 mmol/L 07/03/2024 5:24 PM [facility] Glucose 106(H) 70 - 99 mg/dL 07/03/2024 5:24 PM [facility] Calcium 9.2 8.4 - 10.2 mg/dL 07/03/2024 5:24 PM [facility] Anion Gap 6 6 - 16 07/03/2024 5:24 PM [facility] BUN/Creatinine Ratio 25(H) 7 - 23 07/03/2024 5:24 PM [facility] Osmolality Calculated 300(H) 275 - 295 mOsm/kg 07/03/2024 5:24 PM [facility] eGFR by CKD-EPI 47(L) >=90 mL/min/1.7 3 m2 07/03/2024 5:24 PM [facility] Blood BLOOD SPECIMEN / Unknown Lab Venipuncture / Unknown 07/03/2024 4:40 PM AIRPORT DUTY MANAGER 07/03/2024 4:59 PM AIRPORT DUTY MANAGER Yoanna Francis MD LAB - CHEMISTRY ORD ERABLES [facility] [address] [place] [address], [facility] [phone] * MAGNESIUM BLOOD (07/03/2024 4:40 PM AIRPORT DUTY MANAGER) Magnesium 1.9 1.6 - 2.6 mg/dL 07/03/2024 5:24 PM [facility] Blood BLOOD SPECIMEN / Unknown Lab Venipuncture / Unknown 07/03/2024 4:40 PM AIRPORT DUTY MANAGER 07/03/2024 4:59 PM AIRPORT DUTY MANAGER Yoanna Francis MD LAB - CHEMISTRY ORD ERABLES Performing Organization Address [facility] Co de Phone Number [address] [address], [facility] [phone] * MICROALB/CREAT RATIO URINE RANDOM PANEL (05/06/2024 9:56 AM CDT) Albumin Random Urine 34.2 Not Established ug/mL 05/06/2024 11:11 AM CDT [facility] Creatinine Urine 206.98 Not Established mg/dL 05/06/2024 11:11 AM CDT [facility] Urine Albumin/Creati nine Ratio 17 <30 mg/g 05/06/2024 11:11 AM T [facility] Urine URINE SPECIMEN OBTAINED BY CLEAN CATCH PROCEDURE / Unknown Collection / Unknown 05/06/2024 9:56 AM CDT 05/06/2024 10:20 AM CDT Ronald Casarez MD LAB - URINE CHEMISTR Y ORDERABLES Performing Organization Address [facility] Co de Phone Number [address] [address], [facility] [phone] * (ABNORMAL) HEMOGLOBIN A1C (05/06/2024 9:50 AM CDT) Pathologist [facility] Hemoglobin A1c 6.4(H) <=5.6 % 05/06/2024 11:39 AM T [facility] Estimated Average Glucose 137 mg/dL 05/06/2024 11:39 AM [facility] Comment: HbA1c Interpretation: Normal : < 5.7% Pre-diabetes: 5.7-6.4% Diabetes: Equal to or greater than 6.5% Test results diagnostic of diabetes should be repeated for confirmation. Treatment target values recommended by ADA and other clinical organizations should be used to evaluate metabolic control in patients. Reference: [place] [employer], Standards of Care in Diabetes -2020 In patients 70 years and older consider HbA1c target range of 7.0-7.5% (Reference: Eder Herbert et al. JAMDA. 2012) The Sebia assay for the measurement of HbA1c is a National Glycohemoglobin Standardization Program (NGSP) certified method. Blood BLOOD SPECIMEN / Unknown Lab Venipuncture / Unknown 05/06/2024 9:50 AM CDT 05/06/2024 10:22 AM CDT Ronald Casarez MD LAB - CHEMISTRY [place] Performing Organization Address [facility] Co de Phone Number [facility] [address] [place] [address], [facility] [phone] * CBC W/O DIFFERENTIAL (05/06/2024 9:50 AM CDT) Pathologist [facility] WBC 6.8 4.0 - 10.7 x10E9/L 05/06/2024 10:27 AM [facility] RBC Count 4.89 3.90 - 5.20 x10E12/L 05/06/2024 10:27 AM [facility] Hemoglobin 13.2 11.9 - 15.8 g/dL 05/06/2024 10:27 AM [facility] Hematocrit 40.9 34.8 - 46.1 % 05/06/2024 10:27 AM [facility] MCV 83.6 80.0 - 98.0 fL 05/06/2024 10:27 AM [facility] MCH 27.0 26.7 - 33.6 pg 05/06/2024 10:27 AM [facility] MCHC 32.3 31.7 - 36.3 g/dL 05/06/2024 10:27 AM [facility] RDW-CV 13.0 11.3 - 14.8 % 05/06/2024 10:27 AM [facility] Platelet Count 238 150 - 420 x10E9/L 05/06/2024 10:27 AM [facility] MPV 11.0 7.8 - 11.4 fL 05/06/2024 10:27 AM [facility] Blood BLOOD SPECIMEN / Unknown Lab Venipuncture / Unknown 05/06/2024 9:50 AM CDT 05/06/2024 10:22 AM CDT Ronald Casarez MD LAB - HEMATOLOGY ORD ERABLES [facility] [address] [place] [address], [facility] [phone] * IRON BLOOD (05/06/2024 9:50 AM CDT) Iron 62 40 - 150 ug/dL 05/06/2024 10:55 AM CDT [facility] Blood BLOOD SPECIMEN / Unknown Lab Venipuncture / Unknown 05/06/2024 9:50 AM CDT 05/06/2024 10:20 AM CDT Ronald Casarez MD LAB - CHEMISTRY [place] Performing Organization Address City/[facility]/ZIP Co de Phone Number [address] [address], [facility] [phone] * MAMMO BILAT SCREENING W JAY (12/28/2022 9:25 AM CDT) Anatomical Region Laterality Modality Breast Bilateral Mammography 12/28/2022 9:45 AM CDT Impressions 12/28/2022 10:31 AM CDT : ??No mammographic evidence of malignancy. RECOMMENDATION: ??Screening mammography in one year, pending no interval breast concerns. Patient will be notified of mammography results by lay letter. OVERALL ASSESSMENT: ??BI-RADS CATEGORY 1: NEGATIVE. > Dictated by Genny Umana DO (residential appliance repair technician). I, Annita Mei MD have personally reviewed and interpreted this examination/study. > Interpreting Provider: Annita Mei MD on 12/28/2022 10:31 AM Narrative 12/28/2022 10:31 AM CDT EXAMINATION: DIGITAL MAMMO BILAT SCREENING W JAY AND WITH CAD LOCATION: [facility] DATE: ??12/28/2022 HISTORY: ??Screening. History of breast cancer in her sister at age 56. RISK ASSESSMENT CALCULATION: Patient completed a breast cancer risk assessment during her appointment. Based upon the information she provided and her mammographic breast density, her lifetime risk of developing breast cancer is ??11 % (Average Risk <15%; Intermediate / Moderate Risk 15-19%; High Risk > 20%). COMPARISON: Compare prior mammograms back to 2014. Most recent prior mammogram dated 11/10/2020. TECHNIQUE: Tomosynthesis (3D) and reconstructed synthetic 2-D images acquired and reviewed in the bilateral craniocaudal and mediolateral oblique projections, as well as left CC and MLO nipple in profile views, with a total of 7 images obtained. ??To image breasts in their entirety, additional views obtained. ?? Computer-aided detection (CAD) was utilized. BREAST PARENCHYMAL COMPOSITION: Category A: The breasts are almost entirely fatty. FINDINGS: ??There are no suspicious findings or evidence of malignancy on mammography. There is no significant change from the prior. ?? Ronald Casarez MD MAMMO ORDERABLES * ENDOSCOPY, COLON, SCREENING (12/08/2020 2:44 PM CDT) Report Endoscopy POC Endoscopy Department Report _ Patient Name: Mauricio Cunha Procedure Date: 12/08/2020 2:44 PM ? Date of : 1965 Classification: Outpatient ?Gender: Female Ethnicity: Not or ? Race: Black or _ Providers: ?Sara Ramsey MD Referring MD: ? [facility] Procedure: ?Colonoscopy Indications: ?Screening in patient at increased risk: Family ?history of 1st-degree relative with colorectal ?cancer before age 60 years Medications: ?Monitored Anesthesia Care Description of Procedure: Pre-Anesthesia Assessment: ?- Prior to the procedure, a History and Physical ?was performed, and patient medications and ?allergies were reviewed. The patient's tolerance of ?previous anesthesia was also reviewed. The risks ?and benefits of the procedure and the sedation ?options and risks were discussed with the patient. ?All questions were answered, and informed consent ?was obtained. Prior Anticoagulants: The patient has ?taken no previous anticoagulant or antiplatelet ?agents. ASA Grade Assessment: III - A patient with ?severe systemic disease. After reviewing the risks ?and benefits, the patient was deemed in ?satisfactory condition to undergo the procedure. ?After I obtained informed consent, the scope was ?passed under direct vision. Throughout the ?procedure, the patient's blood pressure, pulse, and ?oxygen saturations were monitored continuously. The ?[id number] was introduced through the anus and ?advanced to the cecum, identified by appendiceal ?orifice and ileocecal valve. The colonoscopy was ?performed without difficulty. The patient tolerated ?the procedure well. The quality of the bowel ?preparation was excellent. The ileocecal valve, ?appendiceal orifice, and rectum were photographed. ? Findings: ? The perianal and digital rectal examinations were normal. ? External hemorrhoids were found during retroflexion. The hemorrhoids ? were medium-sized. ? The entire examined colon appeared normal on direct and retroflexion ? views. ? Estimated Blood Loss: ? Estimated blood loss: none. Complications: ?No immediate complications. Impression: ? - External hemorrhoids. ?- The entire examined colon is normal on direct and ?retroflexion views. ?- No specimens collected. Recommendation: ? - Resume previous diet. ?- Continue present medications. ?- Repeat colonoscopy in 5 years for screening ?purposes, given family history. ? Attending Participation: ??I personally performed the entire procedure. ? Procedure Code(s): ? --- Professional --- ? G0105, Colorectal cancer screening; colonoscopy on individual at high ? risk Diagnosis Code(s): ?--- Professional --- ?Z80.0, Family history of malignant neoplasm of ?digestive organs ?K64.4, Residual hemorrhoidal skin tags CPT copyright 2019 [place] [employer]. All rights reserved. The codes documented in this report are preliminary and upon cardboard cutter review may be revised to meet current compliance requirements. Sara Ramsey MD 12/08/2020 4:01:43 PM Note Initiated On: 12/08/2020 2:44 PM Number of Addenda: 0 ? [facility] ? [address] [place] [address] [facility] 12/08/2020 2:44 PM CDT Sara Haddad MD GI PROCEDURE [place] Performing Organization Address City/State/[facility] Co de Phone Number [facility] * EYE EXAM (06/03/2019 6:27 AM CDT) Anatomical Region Laterality Modality Other Narrative 06/03/2019 6:27 AM CDT Ordered by an unspecified provider. Scanned Document SCANNING ONLY * HEPATITIS C ANTIBODY (09/04/2014 9:30 AM AIRPORT DUTY MANAGER) Hepatitis C Antibody NON-REACTI VE NON-REACT [facility]) Signal/Cutoff 0.03 <1.00 [facility]) Comment: REPORT COMMENT: FASTING:YES Test Performed at: [facility] [address] ??[id number] KATHY PEREZ DO,MPH Blood specimen (specimen) BLOOD SPECIMEN / Unknown 09/04/2014 9:30 AM AIRPORT DUTY MANAGER 09/04/2014 9:31 AM AIRPORT DUTY MANAGER Farheen Lafleur MD LAB - CHEMISTRY [place] [facility] Organization Address City/State/ZIP Co de Phone Number [facility]) from Last 3 Months or Most Recently Relevant to Health Maintenance Care Teams Mechanical Service Representative Relationship Specialty Start Date End Date Neil Velasquez MD [address] [facility] [place] [address] PCP - General Internal Medicine 10/24/23
--- OUTSIDE RECORDS SUMMARY | 2024-08-02 09:58 | XMS_ITS | Encounter Summary ---
Author Organization [facility] Health Address [address] [place] [address] Care Team Providers Care Housing Management Officer Name Role Phone Neil Velasquez MD Primary Care Provider [phone] Reason for Visit * Reason Comments Medical Clearance Encounter Details Date Type Department Care Team (Late st Contact Info) Description 07/24/2024 1:30 PM DOWELING MACHINE OPERATOR Office Visit [facility] - Internal Med [address] [place] [id number] Tami Comer, DO [address] [facility] [place] [address] Pre-op evaluation (Primary Dx) Social History Tobacco Use Types Packs/Day Years [...] on file documented as of this encounter Last Filed Vital Signs Vital Sign Reading Time Taken Comments Blood Pressure 138/80 07/24/2024 1:27 PM DOWELING MACHINE OPERATOR Pulse 72 07/24/2024 1:27 PM DOWELING MACHINE OPERATOR Temperature - - Respiratory Rate 18 07/24/2024 1:27 PM DOWELING MACHINE OPERATOR Oxygen Saturation 97% 07/24/2024 1:27 PM DOWELING MACHINE OPERATOR Inhaled Oxygen Concentration - - Weight 121.3 kg (267 lb 6.4 oz) 07/24/2024 1:27 PM DOWELING MACHINE OPERATOR Height 167.6 cm (5' 6 ) 07/24/2024 1:27 PM DOWELING MACHINE OPERATOR Body Mass Index 43.16 07/24/2024 1:27 PM DOWELING MACHINE OPERATOR documented in this encounter Patient Instructions * Patient Instructions* Hedy Zhang MA - 07/24/2024 1:32 PM DOWELING MACHINE OPERATOR [facility] Internal Medicine is a Patient Centered Medical Home (PCMH) recognized practice. PCMH is a model of care that puts patients at the forefront of care. PCM centers build better relationships between patients and their clinical care teams. Practices that earn this recognition have made a commitment to continuous quality improvement and a patient-centered approach to care. [facility] Internal Medicine is committed to providing you with the best care possible. Shared decision making is a ortega component of patient-centered health care. It is a process in whichclinicians and patients work together to make decisions based on clinical evidence that balances risk and expected outcomes with patient preferences and values. How to Contact Us Between Office Visits For scheduling routine appointments, requesting refills or leaving a message for your doctor, the office phone is [phone]. You will be given options to get to the assistance you need. We have both in person and telehealth (telephone and video) appointments available. Phone lines are open from 8:00 am to 4:30 pm Sunday through Sunday. If you become ill and need to be seen before your next visit, we will generally be able to see you that day, although you may see someone other than your own primary care provider. Please call us at [phone], option 1, then option 1 in the morning you would like to be seen. Our fax number is [phone]. Instructions for reaching the practice after office hours For urgent concerns that cannot wait until phone lines are open on the next business day, please call [phone] to speak to the covering General Internal Medicine provider. Identify yourself as a patient in our practice and give the vacuum conditioner operator your doctor's name. The vacuum conditioner operator will contact the physician drywall professional. You can generally expect a return call within 30 minutes. Prescription Refills Contact your pharmacy to request all refills. You may also send a AudioBeta message for refills. Please allow a minimum of 48-72 hours for your prescription to be completed. Your pharmacy will notify you when your prescription is ready to be picked up. SCHEDULE YOUR OWN APPOINTMENT AT [facility] We are excited to announce that some [facility] appointments can now be scheduled online. If you are not able to access the type of appointment that you need using this service, our [facility] Scheduling department will be happy to continue to serve you. Use one of these options to schedule your next appointment today: Access self-scheduling options by visiting the [facility] Online Scheduling Webpage. Make an appointment by calling [facility] Central [phone] Visit our website at [email or web address] for information about our practice and an interactive health encyclopedia. LING MACHINE OPERATOR documented in this encounter Progress Notes * Tami Comer, - 07/24/2024 1:56 PM CST [facility] General Internal Medicine Perioperative Cardiac Risk Stratification for Noncardiac Surgery Risk Assessment based on 2014 ACC/AHA Guidelines Patient Name: Mauricio Flores (59 year old @GENDER@) Requesting Physician: Jeyson oLwery MD Planned Surgery, Date: 07/28/2024 Recommendation: Surgery-specific expected risk is low. She has specific risk factors identified by RCRI including history of congestive heart failure (CHF). Risk of perioperative cardiac complications, including myocardial infarction, cardiac arrest, and , is 6%* (low risk). *Based on RCRI, ACC/AHA (2014) clinical practice guidelines, and CCS (2017) updated clinical practice guidelines. It is reasonable to proceed to surgery without further testing for purposes of cardiac risk stratification. Continue guideline-directed medical treatment. The above recommendation was discussed with Dr. Francis, who agrees with this recommendation. Assessment Step One Bold all that apply. Patient must have at least one of the following to proceed to Step Two. If none apply, patient is low risk. Known Coronary Artery Disease Hypertension Hypercholesterolemia or hypertriglyceridemia Diabetes or Prediabetes Overweight or obesity Tobacco abuse Lack of physical activity Unhealthy diet Stress Step Two Is the proposed surgery an emergent procedure? No If yes, proceed to surgery with clinical risk stratification (use MACE score below) If no, proceed below Step Three Does the patient have acute coronary syndrome (UA/NSTEMI or STEMI?) No If yes, consult Cardiology for Guideline-Directed Medical Therapy If no, proceed below Step Four Estimate the perioperative risk of a Major Adverse Cardiac Event (MACE). Revised Cardiac Risk Index (RCRI): - History of congestive heart failure (CHF) (1 point) RCRI Score: 1 point If RCRI < 2, no further testing required. Proceed to surgery. Patient is low risk. If RCRI >= 2, proceed below. Step Five Assess the patient's functional capacity. Bold the appropriate statement. Unknown/Unable to assess 1 MET - Can take care of self, such as eat, dress, or use the toilet 2-3 METs - Walk a block or two on level ground at 2-3 mph, do light work (dusting, washing dishes) 4 METs - Can walk up a flight of steps or a hill or walk on level ground at 3 mph 5-6 METs - Can run a short distance, dig in the garden, walk briskly at 4 mph 7-9 METs - Can do heavy work around the house (scrubbing, lifting furniture), can play golf, bowling, casual dancing, throw a baseball >10 METs - Can do strenuous sports (swimming, tennis, football, skiing, etc.) Patient is low-risk if > 7 METs. Proceed to surgery. Patient is intermediate risk if 4-6 METs. Proceed to surgery. Patient is high-risk if < 4 METs. Proceed to Step Six. If unknown, proceed to Step Six. Step Six Will further testing change overall decision making for surgery or change perioperative care? NO If no, proceed to surgery according to Guideline Directed Medical Treatment or use alternative strategies (noninvasive treatment, palliative care) If yes, perform Pharmacologic Stress Testing If Stress Testing is normal, patient is low risk. Proceed to surgery. If Stress Testing is abnormal, recommend coronary revascularization according to existing Clinical Practice Guidelines. Surgical Risk Categories (Modified Carrasco Sanchez Criteria) Low Risk Surgery Breast biopsy Removal of minor skin or subcutaneous lesions Myringotomy tubes Hysteroscopy Cystoscopy, vasectomy Circumcision Fiberoptic bronchoscopy Diagnostic laparoscopy Dilatation and curettage Fallopian tube ligation Arthroscopy Inguinal hernia repair Laparoscopic lysis of adhesion Tonsillectomy Rhinoplasty Excludes open exposure of internal body organs, repair of vascular or neurologic structures, placement of prosthetic devices, planned postoperative PACU or ICU monitoring, open exposure of abdomen, thorax, neck or cranium, orresection of major bodily organs Intermediate Risk Surgery Thyroidectomy Hysterectomy with 500 to 1500 ml EBL Myomectomy Cystectomy Cholecystectomy Laminectomy Hip or knee replacement Nephrectomy Major laporscopic procedure Resection or reconstructive surgery of the digestive tract Excludes open thoracic or intracranial procedure, major vascular repair (aortofemoral bypass), or planned postoperative PACU or ICU monitoring High Risk Surgery Major orthopedic-spinal reconstruction Major reconstruction of the GI tract with predicted EBL > 1500ml Major genitourinary surgery (radical retropubic prostatectomy) Major vascular repair Cardiothoracic surgery Intracranial surgery Major oropharyngeal procedure Major vascular, skeletal or neurologic repair Tami Comer DO 07/24/2024 2:01 PM LING MACHINE OPERATOR Associated attestation - Yoanna Francis MD - 07/24/2024 6:21 PM DOWELING MACHINE OPERATOR Attending Physician Attestation I discussed the patient and reviewed the resident's note at the time of the visit and I agree with history, physical exam, assessment, and plan. I confirm that I have managed the broad scope of the patient???s health needs by furnishing care for some or all the patient???s acute and/or chronic conditions across a spectrum of diagnoses and organ systems that will require ongoing care with myself or someone on my team. This visit has been a part of the consistent, comprehensive, and ongoing management of the chronic medical condition(s) listed above for patient. Date of Service: 07/24/2024 Yoanna Francis MD documented in this encounter Plan of Treatment Upcoming Encounters Date Type Department Care Team (Late st Contact Info) Description 12/15/2024 1:00 PM CDT Office Visit [facility] - Internal Med [address] [place] [address] [place] [id number] Neil Velasquez MD [address] [place] [address] documented as of this encounter Visit Diagnoses Diagnosis Pre-op evaluation- Primary Preoperative examination, unspecified documented in this encounter Care Teams Housing Management Officer Relationship Specialty Start Date End Date Neil Velasquez MD [address] [place] [address] PCP - General Internal Medicine 10/24/23 documented as of this encounter
--- OUTSIDE RECORDS SUMMARY | 2024-08-02 09:58 | XMS_ITS | Patient Health Summary ---
Author Organization [facility] Address [address] [place] [address] Care Team Providers Care Retail Account Representative Name Role Phone Neil Velasquez MD Primary Care Provider [phone] Note from [facility],non-owned Affiliates and Associated Physician Practices is amultiple site organization consisting of ambulatory clinics and hospital sitesin [place], [place], [place] and [place]. This disclosure is being madepursuant to the Care Everywhere program and may not contain all information available regarding this patient. Last updated 18.[facility] Allergies * Hydrocodone-Acetaminophen(Rash) * [place](Itching) -Low Criticality Medications * Be aware that medications may not be up to date on this document. Alwaysverify current medications with the patient. * Glucose Blood (BLOOD GLUCOSE TEST STRIPS) STRP(Started 07/03/2017) Use 1 strip TID. 11 refills left * LANCETS SUPER THIN 28G MISC(Started 03/13/2017) Use TID. 11 refills left * aspirin (ASPIRIN) 81 MG tablet(Started 04/06/2016) * Ascorbic Acid (ALPHONSE-C PO) * VITAMIN D PO * atorvastatin (Lipitor) 40 MG tablet(Started 05/21/2023) Take 1 (one) tablet by mouth once daily 4 refills by 05/20/2024 * tobramycin-dexAMETHasone (Tobradex) 0.3-0.1 % ophthalmic suspension(Started 09/13/2023) * lisinopril-hydroCHLOROthiazide (Prinzide; Zestoretic) 20-25 MG tablet(Started 10/24/2023) Take 1 (one) tablet by mouth once daily 3 refills by 10/23/2024 * hydrALAZINE (Apresoline) 100 MG tablet(Started 10/24/2023) Take 1 (one) tablet by mouth 3 times daily 3 refills by 10/23/2024 * isosorbide mononitrate CR 24hr (Imdur) 30 MG tablet(Started 10/24/2023) Take 1 (one) tablet by mouth once daily 4 refills by 10/23/2024 * carvedilol (Coreg) 25 MG tablet(Started 01/09/2024) TAKE 1 TABLET BY MOUTH TWICE A DAY WITH MORNING AND EVENING MEAL 2 refills by 01/08/2025 Active Problems Problem Noted Date Diagnosed Date [...] Type 2 diabetes mellitus with complications 08/14 Personal history of transien t ischemic attack [...] ear 11/19/2018 12/03/2018 Hypertensive emergency 04/12/201511/26 Immunizations * Covid Pfizer primary monovalent 12+ yr 0.3mL Purple cap(Given 08/10/2021, 12/23/2020, 11/24/2020) * FLU, HISTORIC VACCINE(Given 08/13/2017) * HEP B, HISTORIC VACCINE(Given 1965, 1965, 1965) * INFLUENZA(Given 08/13/2017) * TDAP (7yrs+)(Given 11/19/2018) * Zoster Hzv Vacc Recombinant Inj Im(Given 07/11/2023) Social History Tobacco Use Types Packs/Day Years [...] Comments Blood Pressure 138/80 07/24/2024 1:27 PM SALES OPERATIONS CONSULTANT Pulse 72 07/24/2024 1:27 PM SALES OPERATIONS CONSULTANT Temperature 36.8 ??C (98.2 ??F) 05/08/2024 1:27 PM CD T Respiratory Rate 18 07/24/2024 1:27 PM SALES OPERATIONS CONSULTANT Oxygen Saturation 97% 07/24/2024 1:27 PM SALES OPERATIONS CONSULTANT Inhaled Oxygen Concentration - - Weight 121.3 kg (267 lb 6.4 oz) 07/24/2024 1:27 PM SALES OPERATIONS CONSULTANT Height 167.6 cm (5' 6 ) 07/24/2024 1:27 PM SALES OPERATIONS CONSULTANT Body Mass Index 43.16 07/24/2024 1:27 PM SALES OPERATIONS CONSULTANT Procedures * BASIC METABOLIC PANEL (CALCIUM TOTAL)(Performed 07/03/2024) Performed for Cramps of lower extremity * MAGNESIUM BLOOD(Performed 07/03/2024) Performed for Cramps of lower extremity * MICROALB/CREAT RATIO URINE RANDOM PANEL(Performed 05/06/2024) Performed for 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) * IRON BLOOD(Performed 05/06/2024) Performed for Iron deficiency anemia, unspecified iron deficiency anemia type * HEMOGLOBIN A1C(Performed 05/06/2024) Performed for 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) * CBC W/O DIFFERENTIAL(Performed 05/06/2024) Performed for Iron deficiency anemia, unspecified iron deficiency anemia type * BASIC METABOLIC PANEL (CALCIUM TOTAL)(Performed 05/06/2024) Performed for 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) * ECHO COMPLETE(Performed 09/05/2023) Performed for Pericardial cyst (HCC) * HEPATITIS B SURFACE ANTIBODY(Performed 07/18/2023) Performed for Need for hepatitis B screening test * BASIC METABOLIC PANEL (CALCIUM TOTAL)(Performed 07/18/2023) Performed for Essential hypertension * HEMOGLOBIN A1C(Performed 03/14/2023) Performed for 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) * MICROALB/CREAT RATIO URINE RANDOM PANEL(Performed 03/14/2023) Performed for 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), Essential hypertension * LIPID PROFILE(Performed 03/14/2023) Performed for 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), Hyperlipidemia, unspecified hyperlipidemia type * COMPREHENSIVE METABOLIC PANEL(Performed 03/14/2023) Performed for Essential hypertension, Isolated proteinuria with morphologic lesion * TSH REFLEX FREE T4(Performed 03/14/2023) Performed for Essential hypertension * MAMMO BILAT SCREENING W JAY(Performed 12/28/2022) Performed for Preventative health care * HEMOGLOBIN A1C - POINT OF CARE (AMB) [facility](Performed 11/22/2022) Performed for 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) * HEMOGLOBIN A1C - POINT OF CARE (AMB) [facility](Performed 11/16/2021) Performed for Type 2 diabetes mellitus with complication, without long-term current use of insulin (HCC) * ECHO COMPLETE(Performed 05/04/2021) Performed for Pericardial cyst (HCC) * HEMOGLOBIN A1C - POINT OF CARE (AMB) [facility](Performed 04/06/2021) Performed for 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) * CBC W/O DIFFERENTIAL(Performed 01/20/2021) * COMPREHENSIVE METABOLIC PANEL(Performed 01/20/2021) * LIPID PROFILE(Performed 01/20/2021) * MICROALB/CREAT RATIO URINE RANDOM PANEL(Performed 01/13/2021) * HEMOGLOBIN A1C - POINT OF CARE (AMB) [facility](Performed 01/05/2021) Performed for 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) * COLONOSCOPY SCREEN(Performed 12/08/2020) Performed for Screen for colon cancer * GLUCOSE - POINT OF CARE(Performed 12/08/2020) * ENDOSCOPY, COLON, SCREENING(Performed 12/08/2020) * HCG URINE QUAL POCT NOTIFICATION(Performed 12/08/2020) Performed for Pre-op evaluation * CARDIAC EKG ORDER(Performed 06/17/2020) * ECHO STRESS W EXERCISE(Performed 06/09/2020) Performed for Nonspecific abnormal electrocardiogram (ECG) (EKG) * IRON + TIBC + FERRITIN(Performed 05/13/2020) Performed for Microcytosis * CBC W/O DIFFERENTIAL(Performed 05/13/2020) Performed for Microcytosis * TSH(Performed 05/13/2020) Performed for Enlarged thyroid * LIPID PROFILE(Performed 05/13/2020) Performed for 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), Hyperlipidemia, unspecified hyperlipidemia type * MICROALB/CREAT RATIO URINE RANDOM PANEL(Performed 05/13/2020) Performed for 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), Proteinuria, unspecified type * HEMOGLOBIN A1C(Performed 05/13/2020) Performed for 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) * CARDIAC EKG ORDER(Performed 05/10/2020) * EKG 12-LEAD(Performed 05/05/2020) Performed for Elevated blood pressure reading * BASIC METABOLIC PANEL (CALCIUM TOTAL)(Performed 05/05/2020) * CARDIAC EKG ORDER(Performed 05/05/2020) * PROC EKG IN CLINIC(Performed 05/05/2020) Performed for Essential hypertension * US THYROID(Performed 09/25/2019) Performed for Enlarged thyroid * URINALYSIS REFLEX TO MICROSCOPIC NO CULTURE(Performed 09/05/2019) * HEMOGLOBIN A1C(Performed 09/05/2019) * CBC W/O DIFFERENTIAL(Performed 09/05/2019) * IRON + TIBC PANEL(Performed 09/05/2019) * LIPID PROFILE(Performed 09/05/2019) * URINALYSIS REFLEX TO MICROSCOPIC NO CULTURE(Performed 08/21/2019) * TSH(Performed 08/21/2019) * T4 FREE(Performed 08/21/2019) * MICROALB/CREAT RATIO URINE RANDOM PANEL(Performed 08/21/2019) * PROTEIN ELECTROPHORESIS BLOOD(Performed 08/21/2019) * CARDIAC EKG ORDER(Performed 07/09/2019) * US RETROPERITONEAL COMPLETE(Performed 06/20/2019) Performed for Proteinuria, unspecified type, Essential hypertension * ECHO COMPLETE(Performed 06/20/2019) Performed for Pericardial cyst (HCC) * HEMOGLOBIN A1C(Performed 06/04/2019) * CBC W/O DIFFERENTIAL(Performed 06/04/2019) * BASIC METABOLIC PANEL (CALCIUM TOTAL)(Performed 06/04/2019) * IRON + TIBC PANEL(Performed 06/04/2019) * EYE EXAM(Performed 06/03/2019) * MAMMOGRAM(Performed 06/03/2019) * CARDIAC EKG ORDER(Performed 05/31/2019) * TROPONIN I(Performed 05/30/2019) * COMPREHENSIVE METABOLIC PANEL(Performed 05/30/2019) * CBC W AUTO DIFFERENTIAL(Performed 05/30/2019) * PROTEIN CREATININE RATIO URINE RANDOM PNL(Performed 03/07/2019) * URINALYSIS W/MICROSCOPIC NO CULTURE(Performed 03/07/2019) * COMPLEMENT C4(Performed 02/28/2019) * COMPLEMENT C3(Performed 02/28/2019) * MAGUE BLOOD SCREEN W/REFLEX TITER(Performed 02/28/2019) * CREATININE URINE RANDOM(Performed 02/28/2019) * CBC W/O DIFFERENTIAL(Performed 02/28/2019) Performed for Microcytosis * FERRITIN(Performed 02/28/2019) Performed for Microcytosis * IRON + TIBC PANEL(Performed 02/28/2019) Performed for Microcytosis * HEMOGLOBIN A1C - POINT OF CARE (AMB) [facility](Performed 02/25/2019) Performed for Type 2 diabetes mellitus with complication, without long-term current use of insulin (HCC) * LAB RESULTS ORDER(Performed 12/10/2018) * PROTEIN URINE TIMED QUANTITATIVE(Performed 11/30/2018) Performed for Nephropathy * LAB RESULTS ORDER(Performed 11/26/2018) * HEMOGLOBIN A1C(Performed 11/07/2017) * BASIC METABOLIC PANEL (CALCIUM TOTAL)(Performed 11/07/2017) * MAMMO BILAT SCREENING(Performed 03/22/2017) * HEMOGLOBIN A1C - POINT OF CARE (AMB) [facility](Performed 03/12/2017) * HEMOGLOBIN A1C(Performed 10/27/2016) * BASIC METABOLIC PANEL (CALCIUM TOTAL)(Performed 10/27/2016) * HEMOGLOBIN A1C - POINT OF CARE (AMB) [facility](Performed 10/16/2016) * GLUCOSE ACCUCHECK(Performed 04/06/2016) * GLUCOSE ACCUCHECK(Performed 04/15/2015) * GLUCOSE ACCUCHECK(Performed 04/15/2015) * COMPREHENSIVE METABOLIC PANEL(Performed 04/15/2015) * MAGNESIUM BLOOD(Performed 04/15/2015) * CBC W AUTO DIFFERENTIAL(Performed 04/15/2015) * CBC W AUTO DIFFERENTIAL(Performed 04/15/2015) * GLUCOSE ACCUCHECK(Performed 04/14/2015) * GLUCOSE ACCUCHECK(Performed 04/14/2015) * GLUCOSE ACCUCHECK(Performed 04/14/2015) * COMPREHENSIVE METABOLIC PANEL(Performed 04/14/2015) * MAGNESIUM BLOOD(Performed 04/14/2015) * CBC W AUTO DIFFERENTIAL(Performed 04/14/2015) * CBC W AUTO DIFFERENTIAL(Performed 04/14/2015) * GLUCOSE ACCUCHECK(Performed 04/13/2015) * TSH(Performed 04/13/2015) * MAGNESIUM BLOOD(Performed 04/13/2015) * COMPREHENSIVE METABOLIC PANEL(Performed 04/13/2015) * LIPID PROFILE(Performed 04/13/2015) * CBC W AUTO DIFFERENTIAL(Performed 04/13/2015) * CBC W AUTO DIFFERENTIAL(Performed 04/13/2015) * HEMOGLOBIN A1C(Performed 04/13/2015) * CK + CKMB PANEL(Performed 04/13/2015) * TROPONIN I(Performed 04/13/2015) * GLUCOSE ACCUCHECK(Performed 04/13/2015) * TROPONIN I(Performed 04/13/2015) * HCG URINE QUALITATIVE - POCT (IP) [facility](Performed 04/12/2015) * DRUG ABUSE PANEL 10-20+ETHANOL URINE NO CONFIRM(Performed 04/12/2015) * URINALYSIS W/MICROSCOPIC NO CULTURE(Performed 04/12/2015) * XR CHEST 1VW PORTABLE(Performed 04/12/2015) * TROPONIN I(Performed 04/12/2015) * COMPREHENSIVE METABOLIC PANEL(Performed 04/12/2015) * CBC W/O DIFFERENTIAL(Performed 04/12/2015) * CT HEAD WO CONTRAST(Performed 04/12/2015) * EKG 12-LEAD(Performed 04/12/2015) * MRI BRAIN WWO CONTRAST(Performed 11/03/2014) * CREATININE BLOOD - POCT (IP) [facility](Performed 11/03/2014) * MAMMO BILAT SCREENING(Performed 10/23/2014) * VITAMIN D 25-HYDROXY D2+D3(Performed 09/04/2014) * HEPATITIS C ANTIBODY(Performed 09/04/2014) * HEMOGLOBIN A1C(Performed 09/04/2014) * TSH(Performed 09/04/2014) * DIFFERENTIAL MANUAL(Performed 09/04/2014) * LIPID PROFILE(Performed 09/04/2014) * CBC W AUTO DIFFERENTIAL(Performed 09/04/2014) * COMPREHENSIVE METABOLIC PANEL(Performed 09/04/2014) * VITAMIN D 25-HYDROXY D2+D3(Performed 04/29/2013) * COMPREHENSIVE METABOLIC PANEL(Performed 04/29/2013) * HEMOGLOBIN A1C(Performed 04/29/2013) * CT ABDOMEN PELVIS W CONTRAST(Performed 07/05/2012) * HCG URINE QUALITATIVE - POCT (IP) [facility](Performed 07/05/2012) * HCG BLOOD QUALITATIVE(Performed 07/05/2012) * LIPASE BLOOD(Performed 07/05/2012) * COMPREHENSIVE METABOLIC PANEL(Performed 07/05/2012) * CBC W AUTO DIFFERENTIAL(Performed 07/05/2012) * URINALYSIS W/MICROSCOPIC NO CULTURE(Performed 07/05/2012) * GLUCOSE - POINT OF CARE (AMB) [facility](Performed 07/05/2012) * GLUCOSE - POINT OF CARE (AMB) [facility](Performed 07/05/2012) * GLUCOSE ACCUCHECK(Performed 07/05/2012) * CBC W/O DIFFERENTIAL(Performed 04/25/2011) * TSH(Performed 04/25/2011) * HEMOGLOBIN A1C(Performed 04/25/2011) * COMPREHENSIVE METABOLIC PANEL(Performed 04/25/2011) * LIPID PROFILE(Performed 04/25/2011) * LAB HISTORICAL RESULTS-ONBASE(Performed 03/28/2008) Results * (ABNORMAL) BASIC METABOLIC PANEL (CALCIUM TOTAL) (07/03/2024 4:40 PM SALES OPERATIONS CONSULTANT) Only the most recent of7 resultswithin the time period is included. BUN 33(H) 7 - 26 mg/dL 07/03/2024 5:24 PM [facility] Creatinine 1.32(H) 0.56 - 0.96 mg/dL 07/03/2024 5:24 PM [facility] Sodium 141 136 - 145 mmol/L 07/03/2024 5:24 PM [facility] Potassium 4.0 3.5 - 4.5 mmol/L 07/03/2024 5:24 PM [facility] Chloride 110(H) 98 - 107 mmol/L 07/03/2024 5:24 PM [facility] CO2 25 22 - 29 mmol/L 07/03/2024 5:24 PM [facility] Glucose 106(H) 70 - 99 mg/dL 07/03/2024 5:24 PM [facility] Calcium 9.2 8.4 - 10.2 mg/dL 07/03/2024 5:24 PM [facility] Anion Gap 6 6 - 16 07/03/2024 5:24 PM [facility] BUN/Creatinine Ratio 25(H) 7 - 23 07/03/2024 5:24 PM [facility] Osmolality Calculated 300(H) 275 - 295 mOsm/kg 07/03/2024 5:24 PM [facility] eGFR by CKD-EPI 47(L) >=90 mL/min/1.7 3 m2 07/03/2024 5:24 PM [facility] Blood BLOOD SPECIMEN / Unknown Lab Venipuncture / Unknown 07/03/2024 4:40 PM SALES OPERATIONS CONSULTANT 07/03/2024 4:59 PM SALES OPERATIONS CONSULTANT Yoanna Francis MD LAB - CHEMISTRY ORD ERABLES [address] [id number] [phone] * MAGNESIUM BLOOD (07/03/2024 4:40 PM SALES OPERATIONS CONSULTANT) Only the most recent of4 resultswithin the time period is included. Magnesium 1.9 1.6 - 2.6 mg/dL 07/03/2024 5:24 PM [facility] Blood BLOOD SPECIMEN / Unknown Lab Venipuncture / Unknown 07/03/2024 4:40 PM SALES OPERATIONS CONSULTANT 07/03/2024 4:59 PM SALES OPERATIONS CONSULTANT Yoanna Francis MD LAB - CHEMISTRY ORD ERABLES [address] [address], [facility] [phone] * MICROALB/CREAT RATIO URINE RANDOM PANEL (05/06/2024 9:56 AM CDT) Only the most recent of5 resultswithin the time period is included. Albumin Random Urine 34.2 Not Established ug/mL 05/06/2024 11:11 AM CDT [facility] Creatinine Urine 206.98 Not Established mg/dL 05/06/2024 11:11 AM CDT [facility] Urine Albumin/Creati nine Ratio 17 <30 mg/g 05/06/2024 11:11 AM CDT [facility] Urine URINE SPECIMEN OBTAINED BY CLEAN CATCH PROCEDURE / Unknown Collection / Unknown 05/06/2024 9:56 AM CDT 05/06/2024 10:20 AM CDT Ronald Casarez MD LAB - URINE CHEMISTR Y ORDERABLES [facility] [address] [place] [phone], [facility] [phone] * (ABNORMAL) HEMOGLOBIN A1C (05/06/2024 9:50 AM CDT) Only the most recent of11 resultswithin the time period is included. Hemoglobin A1c 6.4(H) <=5.6 % 05/06/2024 11:39 AM T [facility] Estimated Average Glucose 137 mg/dL 05/06/2024 11:39 AM T [facility] Comment: HbA1c Interpretation: Normal : < 5.7% Pre-diabetes: 5.7-6.4% Diabetes: Equal to or greater than 6.5% Test results diagnostic of diabetes should be repeated for confirmation. Treatment target values recommended by ADA and other clinical organizations should be used to evaluate metabolic control in patients. Reference: [place] [employer], Standards of Care in Diabetes [...] Casarez MD LAB - CHEMISTRY [place] [facility] Organization Address City/State/ZIP Co de Phone Number [facility] [address] [place] [address], [facility] [phone] * CBC W/O DIFFERENTIAL (05/06/2024 9:50 AM CDT) Only the most recent of8 resultswithin the time period is included. WBC 6.8 4.0 - 10.7 x10E9/L 05/06/2024 10:27 AM [facility] RBC Count 4.89 3.90 - 5.20 x10E12/L 05/06/2024 10:27 AM [facility] Hemoglobin 13.2 11.9 - 15.8 g/dL 05/06/2024 10:27 AM [facility] Hematocrit 40.9 34.8 - 46.1 % 05/06/2024 10:27 AM [facility] MCV 83.6 80.0 - 98.0 fL 05/06/2024 10:27 AM [facility] MCH 27.0 26.7 - 33.6 pg 05/06/2024 10:27 AM [facility] MCHC 32.3 31.7 - 36.3 g/dL 05/06/2024 10:27 AM [facility] RDW-CV 13.0 11.3 - 14.8 % 05/06/2024 10:27 AM [facility] Platelet Count 238 150 - 420 x10E9/L 05/06/2024 10:27 AM [facility] MPV 11.0 7.8 - 11.4 fL 05/06/2024 10:27 AM [facility] Blood BLOOD SPECIMEN / Unknown Lab Venipuncture / Unknown 05/06/2024 9:50 AM CDT 05/06/2024 10:22 AM CDT Ronald Casarez MD LAB - HEMATOLOGY ORD ERABLES [facility] [address] [place] [address], [place] [phone] * IRON BLOOD (05/06/2024 9:50 AM CDT) Iron 62 40 - 150 ug/dL 05/06/2024 10:55 AM CDT [facility] Blood BLOOD SPECIMEN / Unknown Lab Venipuncture / Unknown 05/06/2024 9:50 AM CDT 05/06/2024 10:20 AM CDT Ronald Casarez MD LAB - CHEMISTRY ORDE RABDIONNA Performing Organization Address City/[facility]/ZIP Co de Phone Number [address] [address], [facility] [phone] * ECHO COMPLETE (09/05/2023 1:51 PM SALES OPERATIONS CONSULTANT) BSA 2.2722939 m2 SSM CV FUJ I PACS LV biplane EF 79 54 - 74 % SSM CV FUJI PACS LV A2C EF 77 52 - 76 % SSM CV FUJ I PACS LV A4C EF 82 46 - 78 % SSM CV FUJ I PACS LV stroke vol BP 113.5 mL SSM CV FUJI PACS LV stroke vol BP index 47.2 mL/m2 SSM CV FUJI PACS LVOT stroke vol 102.17 mL SSM CV FUJI PACS LVOT stroke vol index 42.51 mL/m2 SSM CV FUJI PACS LV stroke vol 2D teich 74.658 ml SSM CV FUJI PACS LV Stroke Index 2D Teich 31.06 mL/m2 SSM CV FUJI PACS LV stroke vol index A4C MOD 122.24 ml/m2 SSM CV FUJI PACS LVIDd 4.57 3.8 - 5.2 cm SSM CV FUJI PACS LVIDs 2.46 2.2 - 3.5 cm SSM CV FUJI PACS IVSd 2D 1.493 0.6 - 0.9 cm SSM CV FUJI PACS LVPWd 1.49 0.6 - 0.9 cm SSM CV FUJI PACS Fractional Shortening 2D 46 28 - 44 % SSM CV FUJI PACS LV ESV BP 30.354 14 - 42 mL SSM CV FUJI PACS LV ESV index BP 12.6 8 - 24 mL/m2 SSM CV FUJI PACS LV ESV A2C 27.254 10 - 54 mL SSM CV FUJI PACS LV ESV index A2C 11.34 6 - 30 mL/m2 SSM CV FUJI PACS LV EDV BP 143.843 46 - 106 mL SSM CV FUJI PACS LV ESV A4C 30.351 12 - 60 mL SSM CV FUJI PACS LV ESV index A4C 12.63 7 - 35 mL/m2 SSM CV FUJI PACS LV EDV index BP 59.8 29 - 61 mL/m2 SSM CV FUJI PACS LV EDV A2C 134.258 41 - 133 mL SSM CV FUJI PACS LV EDV index A2C 55.86 26 - 74 mL/m2 SSM CV FUJI PACS LV EDV A4C 149.494 mL SSM CV FU JI PACS LV ESV 2D 21.362 14 - 42 mL SSM CV FUJI PACS LV EDV index A4C 62.20 30 - 82 mL/m2 SSM CV FUJI PACS LV ESV index 2D 8.89 8 - 24 mL/m2 SSM CV FUJI PACS LV EDV 2D 96.02 46 - 106 mL SSM CV FUJI PACS LV EDV index 2D 39.95 29 - 61 mL/m2 SSM CV FUJI PACS LVOT diam 2.0 cm SSM CV FUJ I PACS LVOT area 3.24 cm2 SSM CV FUJ I PACS LV RWT 0.65 SSM CV FUJ I PACS LV [place] A2C 7.78 cm SSM CV F UJI PACS LV [place] A4C 7.529 cm SSM CV F UJI PACS IVS/LVPW 1.004 SSM CV FUJ I PACS LV mass 2D 262.0984 66 - 150 g SSM CV FUJI PACS LV mass index 2D 109.05 44 - 88 g/m2 SSM CV FUJI PACS MV E pk bran 99.317 cm/s SSM CV F UJI PACS MV avg E/e' ratio 16.15 SS M CV FUJI PACS MV A pk bran 84.094 cm/s SSM CV F UJI PACS MV E A ratio 1.18 SSM CV FUJI PACS MV E' lateral bran 8.677 cm/s SS M CV FUJI PACS MV DT 188 ms SSM CV FUJ I PACS MV E' septal bran 4.765 cm/s SSM CV FUJI PACS MV A duration 128 ms SSM CV FUJI PACS MV E/e' septal 20.844 SSM C V FUJI PACS MV E/e' lateral 11.446 [facility] pk [facility]an 316.6 cm/s SSM CV [facility] I PACS LVOT pk bran 1.26 m/s SSM CV F UJI PACS LVOT mn bran 0.79 m/s SSM CV F UJI PACS LVOT mn grad 3.0 mmHg SSM CV FUJI PACS LVOT Cardiac Output 4.983 l/min SSM CV FUJI PACS LVOT Cardiac Index 2.07 l/min/m2 SSM CV FUJI PACS Qp:Qs 1.34 SSM CV [facility] I PACS LA size 4.365 2.7 - 3.8 cm [facility] RV-bullard basal diam 4.9 2.5 - 4.1 cm [facility] RV-bullard longitudinal diam 8.4 5.9 - 8.3 cm [facility] RVIDd 3.5 cm SSM CV [facility] I PACS RVOT diam Doppler 2.952 cm SS M CV FUJI PACS RVOT area Doppler 6.85 8 - 20 cm2 [facility] RVOT stroke vol 137.02 cm3 [facility] RV[facility] VTI 20.016 cm SSM CV [facility] I PACS TAPSE 2.726 1.7 cm SSM CV [facility] I PACS RVOT pk bran 0.70 m/s SSM CV F UJI PACS RA area 22.485 cm2 SSM CV [facility] I PACS AV mn grad 4 mmHg SSM CV FU JI PACS AV pk grad 7 mmHg SSM CV FU JI PACS AV mn bran 0.91 m/s SSM CV [facility] I PACS AV pk bran 1.28 m/s SSM CV FUJ I PACS AV VTI 33.238 cm SSM CV FUJ I PACS LVOT pk grad 6.399 mmHg SSM CV FUJI PACS LVOT VTI 31.538 cm SSM CV FUJ I PACS AV area cont VTI 3.1 cm2 SSM CV FUJI PACS AV area pk bran 3.2 cm2 SSM C V FUJI PACS AV Doppler bran index pk bran 0.986 SSM CV FUJI PACS Dimensionless Index 0.949 SSM CV FUJI PACS AV pk bran regurg 386.732 cm/s SSM CV FUJI PACS MV decel slope 528.489 cm/s2 SSM C V FUJI PACS TV annulus 3.94 cm SSM CV FU JI PACS TR VTI 111.4 cm SSM CV FUJ I PACS TR pk grad 40 mmHg SSM CV FU JI PACS RVOT mn grad 1 mmHg SSM CV FUJI PACS RVOT pk grad 2 mmHg SSM CV FUJI PACS PV area cont eq 8.2 cm2 SSM CV FUJI PACS PV mn grad 1 mmHg SSM CV FU JI PACS PV pk bran 71.003 cm/s SSM CV FUJ I PACS PV pk grad 2 mmHg SSM CV FU JI PACS PV VTI 16.667 cm SSM CV FUJ I PACS PV mn bran 48.255 cm/s SSM CV FUJ I PACS Ascending aorta 3.52 cm SSM CV FUJI PACS IVC size 1.7 cm SSM CV FUJ I PACS RV stroke vol 136.95 mL SSM CV FUJI PACS LA ESV A4C MOD Index 52 ml/m2 SSM CV FUJI PACS [id number] 5.405 cm SSM CV FUJ I PACS [id number] 6.033 cm SSM CV FUJ I PACS Prox Asc Ao Diameter Index 1.463 cm SSM CV FUJI PACS AR VTI 261.535 SSM CV FUJ I PACS LVIDs index 1.02 1.3 - 2.1 cm/m2 SSM CV FUJI PACS LV LVIDd index 1.90 2.3 - 3.1 cm/m2 SSM CV FUJI PACS RVSP 43.0 mmHg SSM CV FUJ I PACS RAP 3.0 mmHg SSM CV FUJ I PACS Anatomical Region Laterality Modality Ultrasound Narrative 09/05/2023 2:53 PM [employer] ?Tricuspid??Valve: Mild regurgitation. The pulmonary artery systolic pressure is mildly elevated. Estimated RVSP is 43.0 mmHg. ?Left??Ventricle: Left ventricle size is normal. Mildly increased wall thickness. Mildly increased ventricular mass. Findings consistent with mild concentric hypertrophy. Hyperdynamic systolic function. EF by 2D Stallings biplane is 79%. Normal wall motion. Grade II diastolic dysfunction with elevated left atrial pressure. ?Right??Ventricle: Right ventricle is mildly dilated. ?Left??Atrium: Left atrium is moderately dilated. ?Right??Atrium: Right atrium is mildly dilated. There is a prominent Chiari network. Left Ventricle Left ventricle size is normal. Mildly increased wall thickness. Mildly increased ventricular mass. Findings consistent with mild concentric hypertrophy. Hyperdynamic systolic function. EF by 2D Stallings biplane is 79%. Normal wall motion. Grade II diastolic dysfunction with elevated left atrial pressure. Right Ventricle Right ventricle is mildly dilated. Normal systolic function. Left Atrium Left atrium is moderately dilated. Right Atrium Right atrium is mildly dilated. There is a prominent Chiari network. IVC/SVC IVC diameter is less than or equal to 21 mm and decreases greater than 50% during inspiration; therefore the estimated right atrial pressure is normal (~3 mmHg). Mitral Valve Mildly calcified leaflets. Mild regurgitation. No stenosis. Tricuspid Valve Valve structure is normal. Mild regurgitation. The pulmonary artery systolic pressure is mildly elevated. Estimated RVSP is 43.0 mmHg. No stenosis. Aortic Valve Valve structure is trileaflet. Trace regurgitation. No stenosis. Pulmonic Valve Valve structure is normal. No regurgitation. No stenosis. Ascending Aorta Normal sized sinus of Valsalva (aortic root) and ascending aorta. Pericardium No pericardial effusion. Study Details Study quality was good. A complete 2D, color Doppler, spectral Doppler and M- mode echocardiogram was performed. The apical, parasternal and subcostal views were obtained. Technical difficulties due to patient's heart rhythm. Prior Study Prior TTE study available for comparison. Prior study date: 05/04/2021. Paul Razo II, MD ECHO CUPID * HEPATITIS B SURFACE ANTIBODY (07/18/2023 11:36 AM SALES OPERATIONS CONSULTANT) Hepatitis B Virus Surface Antibody Non-react mateo Non-react mateo 07/18/2023 1:03 PM [facility] Comment: < 8 mIU/mL Hepatitis B surface Antibody (HBsAb). Nonreactive for HBsAb - individual is considered not immune to Hepatitis B Virus infection. Hepatitis B Surface Antibody Quantitative 0.0 <8.0 mIU/mL 07/18/2023 1:03 PM [facility] Comment: Hepatitis B Surface Antibody Numeric Result Interpretation: ? Nonreactive: ?<8.0 mIU/mL ? Indeterminate: ??8.0 - 12.0 mIU/mL ? Reactive: ?>12.0 mIU/mL ? Blood BLOOD SPECIMEN / Unknown Lab Venipuncture / Unknown 07/18/2023 11:36 AM SALES OPERATIONS CONSULTANT 07/18/2023 11:58 AM SALES OPERATIONS CONSULTANT Ronald Casarez MD LAB - CHEMISTRY [place] Performing Organization Address City/[facility]/ZIP Co de Phone Number [address] [address], [employer] [phone] * TSH REFLEX FREE T4 (03/14/2023 2:40 PM CDT) Pathologist [facility] [place] TSH 0.882 0.350 - 4.940 uIU/mL 03/14/2023 3:44 PM CDT [facility] Blood BLOOD SPECIMEN / Unknown Lab Venipuncture / Unknown 03/14/2023 2:40 PM CDT 03/14/2023 2:56 PM CDT Paul Razo II, MD LAB - CHEMISTRY ORDERABLES Performing Organization Address City/[facility]/ZIP Co de Phone Number [address] [address], [employer] [phone] * (ABNORMAL) COMPREHENSIVE METABOLIC PANEL (03/14/2023 2:40 PM [facility]) Only the most recent of11 resultswithin the time period is included. BUN 17 7 - 26 mg/dL 03/14/2023 3:27 PM [facility] Creatinine 1.08(H) 0.56 - 0.96 mg/dL 03/14/2023 3:27 PM [facility] Sodium 139 136 - 145 mmol/L 03/14/2023 3:27 PM [facility] Potassium 3.8 3.5 - 4.5 mmol/L 03/14/2023 3:27 PM [facility] Chloride 105 98 - 107 mmol/L 03/14/2023 3:27 PM [facility] CO2 29 22 - 29 mmol/L 03/14/2023 3:27 PM [facility] Glucose 118(H) 70 - 115 mg/dL 03/14/2023 3:27 PM [facility] Calcium 9.2 8.4 - 10.2 mg/dL 03/14/2023 3:27 PM [facility] Protein Total 7.3 6.0 - 8.3 g/dL 03/14/2023 3:27 PM [facility] Albumin 3.6 3.4 - 5.0 g/dL 03/14/2023 3:27 PM [facility] Bilirubin Total 0.7 0.2 - 1.2 mg/dL 03/14/2023 3:27 PM [facility] Alkaline Phosphatase 79 40 - 150 U/L 03/14/2023 3:27 PM [facility] ALT 15 5 - 55 U/L 03/14/2023 3:27 PM [facility] AST 15 5 - 34 U/L 03/14/2023 3:27 PM [facility] Anion Gap 9 8 - 18 03/14/2023 3:27 PM [facility] BUN/Creatinine Ratio 16 7 - 23 03/14/2023 3:27 PM [facility] Osmolality Calculated 291 270 - 300 mOsm/kg 03/14/2023 3:27 PM [facility] Albumin/Globulin Ratio 1.0(L) 1.1 - 2.3 03/14/2023 3:27 PM [facility] eGFR by CKD-EPI 60(L) >=90 mL/min/1.7 3 m2 03/14/2023 3:27 PM [facility] Blood BLOOD SPECIMEN / Unknown Lab Venipuncture / Unknown 03/14/2023 2:40 PM CDT 03/14/2023 2:56 PM CDT Paul Razo II, MD LAB - CHEMISTRY ORDERABLES [facility] [address] [place] [address], [facility] [phone] * (ABNORMAL) LIPID PROFILE (03/14/2023 2:40 PM CDT) Only the most recent of7 resultswithin the time period is included. Cholesterol Total 170 <200 mg/dL 03/14/2023 3:27 PM [facility] HDL 47 >40 mg/dL 03/14/2023 3:27 PM [facility] Comment: ATP III Classification of HDL Cholesterol: ? <40 mg/dL: ??Considered a major risk factor. ? >60 mg/dL: ??Considered a negative risk factor. ? LDL Calculated 103(H) <100 mg/dL 03/14/2023 3:27 PM [facility] Comment: ATP III Classification of LDL Cholesterol: ?<100 mg/dL: ??Optimal ? 100 - 129 mg/dL: ??Near Optimal/Above Optimal ? 130 - 159 mg/dL: ??Borderline High ? 160 - 189 mg/dL: ??High ?>190 mg/dL: ??Very High ? Triglycerides 98 <150 mg/dL 03/14/2023 3:27 PM [facility] Comment: ATP III Classification of Triglycerides: ?<150 mg/dL: ??Normal ? 150 - 199 mg/dL: ??Borderline High ? 200 - 400 mg/dL: ??High ?>500 mg/dL: ??Very High Blood BLOOD SPECIMEN / Unknown Lab Venipuncture / Unknown 03/14/2023 2:40 PM CDT 03/14/2023 2:56 PM CDT Paul Razo II, MD LAB - CHEMISTRY ORDERABLES [place] [address] [place] [address], [facility] [phone] * MAMMO BILAT SCREENING W JAY (12/28/2022 [...] NEGATIVE. > Dictated by Genny Umana DO (student affairs vice president). I, Annita Mei MD have personally reviewed and interpreted this examination/study. > Interpreting Provider: Annita Mei MD on 12/28/2022 10:31 AM Narrative 12/28/2022 10:31 AM CDT EXAMINATION: DIGITAL MAMMO BILAT SCREENING W JAY AND WITH CAD LOCATION: [facility] DATE: ??12/28/2022 HISTORY: ??Screening. History of breast [...] ?? Ronald Casarez MD MAMMO ORDERABLES * HEMOGLOBIN A1C - POINT OF CARE (AMB) [facility] (11/22/2022) Only the most recent of7 resultswithin the time period is included. Hemoglobin A1c POCT 6.4 % BLOOD SPECIMEN / Unknown 11/22/2022 Ronald Casarez MD LAB - POINT OF CARE ORDERABLES * ECHO COMPLETE (05/04/2021 3:04 PM CDT) Only the most recent of2 resultswithin the time period is included. Anatomical Region Laterality Modality Chest Echo 05/04/2021 2:30 PM CDT Narrative Procedure Note Ebony Tucker MD - 05/04/2021 Lacy Mendoza DO ECHOCARDIOGRAPHY RAD IANT * GLUCOSE - POINT OF CARE (12/08/2020 2:52 PM CDT) Glucose WB/POC 107 70 - 115 mg/dL 12/08/2020 2:54 PM CDT [facility] Specimen Type Arterial/C apillary 12/08/2020 2:54 PM CDT [facility] Blood BLOOD SPECIMEN / Unknown 12/08/2020 2:52 PM CDT 12/08/2020 2:54 PM CDT Sara Haddad MD LAB - POINT OF CA RE ORDERABLES [facility] [address] [place] [address], [facility] [phone] * ENDOSCOPY, COLON, SCREENING (12/08/2020 2:44 PM CDT) Report Endoscopy POC Endoscopy Department Report _ Patient Name: Mauricio Flores Procedure Date: 12/08/2020 2:44 PM ? Date of : 1965 Classification: Outpatient ?Gender: Female Ethnicity: Not or ? Race: Black or _ Providers: ?Sara Ramsey MD Referring MD: ? [facility] Internal Medicine Clinic Procedure: ?Colonoscopy Indications: ?Screening [...] Residual hemorrhoidal skin tags CPT copyright 2019 [employer]. All rights reserved. The codes documented in this report are preliminary and upon label coder review may be revised to meet current compliance requirements. Sara Ramsey MD 12/08/2020 4:01:43 PM Note Initiated On: 12/08/2020 2:44 PM Number of Addenda: 0 ? [facility] ? [address] 12/08/2020 2:44 PM CDT Sara Haddad MD GI PROCEDURE ORDE RABLES Performing Organization Address City/[facility] Co de Phone Number [facility] [place] * HCG URINE QUAL POCT NOTIFICATION (12/08/2020 1:53 PM CDT) Comment Notification Label Only - See Separate Report 12/08/2020 3:00 PM CDT [facility] Urine URINE / Unknown 12/08/2020 1 :53 PM CDT 12/08/2020 1:53 PM CDT Sara Haddad MD LAB - URINALYSIS ORDERABLES [facility] [address] [place] [address], [facility] [phone] * CARDIAC EKG ORDER (06/17/2020 7:47 AM SALES OPERATIONS CONSULTANT) Only the most recent of5 resultswithin the time period is included. Narrative 06/17/2020 7:47 AM SALES OPERATIONS CONSULTANT Ordered by an unspecified provider. Scanned Document CARDIAC SERVICES ORD ERABLES * ECHO STRESS TEST W EXERCISE (06/09/2020 12:53 PM CDT) Anatomical Region Laterality Modality Chest Echo 06/09/2020 10:2 2 AM CDT Narrative Procedure Note Ebony Tucker MD - 06/09/2020 Catherine Salmeron APRN-TECHNICAL PROJECT COORDINATOR ECHOCARDIOGRAPHY RADIANT * IRON + TIBC + FERRITIN (05/13/2020 12:32 PM CDT) Iron 107 45 - 160 mcg/dL [facility] TIBC 295 250 - 450 mcg/dL (calc) [facility] % Saturation 36 16 - 45 % (calc) [facility] Ferritin 82 16 - 232 ng/mL [facility] Comment: Test Performed at: [facility] [address] ??[phone] KATHY PEREZ DO,MPH Blood BLOOD SPECIMEN / Unknown 05/13/2020 12:32 PM CDT 05/13/2020 12:32 PM CDT Catherine Salmeron APRN-TECHNICAL PROJECT COORDINATOR LAB - CHEMISTRY ORDERABLES [facility] [address] [place] [address] * TSH (05/13/2020 12:32 PM CDT) Only the most recent of5 resultswithin the time period is included. TSH 1.20 mIU/L [facility] Comment: ?Reference Range ?> or = 20 Years ??0.40-4.50 ? Ranges ?First trimester ?0.26-2.66 ?Second trimester ?? 0.55-2.73 ?Third trimester ?0.43-2.91 Test Performed at: [facility] [address] [place], [place] ??[phone] KATHY PEREZ DO,MPH Blood BLOOD SPECIMEN / Unknown 05/13/2020 12:32 PM CDT 05/13/2020 12:32 PM CDT Catherine Salmeron DIGGING MACHINE OPERATOR-TECHNICAL PROJECT COORDINATOR LAB - CHEMISTRY ORDERABLES Performing Organization Address [facility]/State/[facility] Co de Phone Number [employer] [address] [place] [address] * EKG 12-LEAD (05/05/2020 8:17 PM CDT) Only the most recent of2 resultswithin the time period is included. Ventricular Rate 65 BPM [facility] Atrial Rate 65 BPM [facility] P-R Interval 148 ms [facility] QRS Duration ms 84 ms [facility] Q-T Interval ms 422 ms [facility] QTC Calculation (Bezet) 438 ms [facility] Calculated P [place] 50 degrees [facility] Calculated R [place] 35 degrees [facility] Calculated T [place] 154 degrees [facility] Interpretation EKG NORMAL SINUS RHYTHM POSSIBLE LEFT ATRIAL ENLARGEMENT LEFT VENTRICULAR HYPERTROPHY WITH STRAIN PATTERN ABNORMAL ECG WHEN COMPARED WITH ECG OF 30-May-2019, 18:11:09 LEFT VENTRICULAR HYPERTROPHY WITH STRAIN PATTERN IS NOW PRESENT Confirmed by fellow Willy Skinner ([id number]) on 05/06/2020 11:20:56 AM Confirmed by Moisés Ferguson ([id number]) on 06/01/2020 11:48:15 AM [facility] MUSE 05/05/2020 8:17 PM CDT 06/01/2020 11:48 AM CDT Julee Norwood MD ECG ORDERABLES [facility] * PROC EKG IN CLINIC (05/05/2020) Narrative LamontCatherine, GIANNA - 05/05/[address] depression Catherine Salmeron GIANNA ECG ORDERABLES * US THYROID (09/25/2019 1:00 PM SALES OPERATIONS CONSULTANT) Anatomical Region Laterality Modality Chest Ultrasound 09/25/2019 1:19 PM SALES OPERATIONS CONSULTANT Impressions 09/25/2019 3:31 PM SALES OPERATIONS CONSULTANT IMPRESSION: Normal thyroid sonogram without suspicious thyroid nodules based on TI-RADS criteria. Dictated by Santhosh Aleman MD (residential tech). This report was approved ??by Santhosh Aleman M.D. ?? on 09/25/2019 3:05 PM . I, Dr. ETHEL CHAUDHARI have personally reviewed and interpreted this examination/study. This report was electronically signed by ETHEL CHAUDHARI ??on 09/25/2019 3:31 PM . Narrative 09/25/2019 3:31 PM SALES OPERATIONS CONSULTANT EXAMINATION: Thyroid sonogram HISTORY: E04.9: Enlarged thyroid COMPARISON: No prior study is available for comparison. FINDINGS: Right thyroid lobe: 3.7 x 1.8 x 1.9 cm Left thyroid lobe: 4.1 x 1.4 x 1.7 cm Isthmus: 6 mm The thyroid demonstrates homogeneous echogenicity. The isthmus is not thickened. Vascularity of the thyroid is normal. Two 0.2 cm hypoechoic nodules in the mid right lobe of the thyroid gland are not suspicious based on TI-RADS criteria. No suspicious thyroid nodules are identified. Procedure Note Ethel Chaudhari MD - 09/25/2019 EXAMINATION: Thyroid sonogram HISTORY: E04.9: Enlarged thyroid COMPARISON: No prior study is available for comparison. FINDINGS: Right thyroid lobe: 3.7 x 1.8 x 1.9 cm Left thyroid lobe: 4.1 x 1.4 x 1.7 cm Isthmus: 6 mm The thyroid demonstrates homogeneous echogenicity. The isthmus is not thickened. Vascularity of the thyroid is normal. Two 0.2 cm hypoechoic nodules in the mid right lobe of the thyroid gland are not suspicious based on TI-RADS criteria. No suspicious thyroid nodules are identified. IMPRESSION: Normal thyroid sonogram without suspicious thyroid nodules based on TI-RADS criteria. Dictated by Santhosh Aleman MD (residential tech). This report was approved by Santhosh Aleman M.D. on 09/25/2019 3:05 PM. I, Dr. ETHEL CHAUDHARI have personally reviewed and interpreted this examination/study. This report was electronically signed by ETHEL CHAUDHARI on 09/25/20193:31 PM . Catherine Salmeron APRN-TECHNICAL PROJECT COORDINATOR US ORDERABLES * (ABNORMAL) URINALYSIS REFLEX TO MICROSCOPIC NO CULTURE (09/05/2019 8:26 AM SALES OPERATIONS CONSULTANT) Only the most recent of2 resultswithin the time period is included. Color UA YELLOW YELLOW [facility] Appearance CLEAR CLEAR [facility] Specific [place] UA 1.012 1.001 - 1.035 [facility] pH UA 6.5 5.0 - 8.0 [facility] Glucose UA NEGATIVE NEGATIVE [facility] Bilirubin UA NEGATIVE NEGATIVE [facility] Ketone UA NEGATIVE NEGATIVE [facility] Blood UA NEGATIVE NEGATIVE [facility] Protein UA TRACE(A) NEGATIVE [facility] Nitrite UA NEGATIVE NEGATIVE [facility] Leukocyte UA NEGATIVE NEGATIVE [facility] WBC UA NONE SEEN < OR = 5 /HPF [facility] RBC UA NONE SEEN < OR = 2 /HPF [facility] Epithelial Cell UA NONE SEEN < OR = 5 /HPF [facility] Bacteria UA NONE SEEN NONE SEEN /HPF [facility] Hyaline Casts NONE SEEN NONE SEEN /LPF [facility] Comment: REPORT COMMENT: FASTING:YES AN UPDATE OR CORRECTION HAS BEEN MADE TO NAME Test Performed at: [facility] [id number] [place] [address] ??[phone] KATHY PEREZ DO,MPH 09/05/2019 8:26 AM SALES OPERATIONS CONSULTANT 09/05/2019 8:27 AM SALES OPERATIONS CONSULTANT [facility] LAB - URINALYSIS ORDERABLES [facility] [address] [place] [address] * IRON + TIBC PANEL (09/05/2019 8:26 AM SALES OPERATIONS CONSULTANT) Only the most recent of3 resultswithin the time period is included. Iron 68 45 - 160 mcg/dL [facility] TIBC 299 250 - 450 mcg/dL (calc) [facility] % Saturation 23 16 - 45 % (calc) [facility] Comment: Test Performed at: [facility] ??[phone] KATHY PEREZ DO,MPH 09/05/2019 8:26 AM SALES OPERATIONS CONSULTANT 09/05/2019 8:27 AM SALES OPERATIONS CONSULTANT Catherine Salmeron APRN-TECHNICAL PROJECT COORDINATOR LAB - CHEMISTRY ORDERABLES Performing Organization Address [facility] [place] [address] * T4 FREE (08/21/2019 8:13 AM SALES OPERATIONS CONSULTANT) [facility] T4 Free 1.1 0.8 - 1.8 ng/dL [facility] Comment: Test Performed at: [facility] [address] ??[phone] KATHY PEREZ DO,MPH 08/21/2019 8:13 AM SALES OPERATIONS CONSULTANT 08/21/2019 8:16 AM SALES OPERATIONS CONSULTANT Catherine Salmeron APRN-TECHNICAL PROJECT COORDINATOR LAB - CHEMISTRY ORDERABLES Performing Organization Address [facility] [place] [address] * PROTEIN ELECTROPHORESIS BLOOD (08/21/2019 8:13 AM SALES OPERATIONS CONSULTANT) Pathologist [facility] [place] Protein Total 7.1 6.1 - 8.1 g/dL [facility] Albumin 3.9 3.8 - 4.8 g/dL [facility] Alpha-1 Globulin 0.3 0.2 - 0.3 g/dL [facility] Ddclj-1-Hrauylur 0.7 0.5 - 0.9 g/dL [facility] Beta-1 Globulin g/dL 0.5 0.4 - 0.6 g/dL [facility] Beta-2 Globulin 0.5 0.2 - 0.5 g/dL [facility] Gamma Globulin 1.3 0.8 - 1.7 g/dL [facility] Abnormal Protein Band [facility] Abnormal Protein Band 2 [facility] Abnormal Protein Band 3 [facility] Interpretation [facility] Comment: No restricted band (M-spike) seen. Test Performed at: [employer] [address] [place] [address] ??[phone] KATHY PEREZ DO,MPH 08/21/2019 8:13 AM SALES OPERATIONS CONSULTANT 08/21/2019 8:16 AM SALES OPERATIONS CONSULTANT Catherine Salmeron DIGGING MACHINE OPERATOR-TECHNICAL PROJECT COORDINATOR LAB - CHEMISTRY ORDERABLES [facility] [address] [place] [address] * US RETROPERITONEAL COMPLETE (06/20/2019 11:26 AM SALES OPERATIONS CONSULTANT) Anatomical Region Laterality Modality Abdomen Ultrasound 06/20/2019 11:3 6 AM SALES OPERATIONS CONSULTANT Impressions 06/20/2019 2:07 PM SALES OPERATIONS CONSULTANT IMPRESSION: Normal renal size. No evidence of nephrolithiasis, hydronephrosis, or solid renal mass. Pelvic soft tissue density, partially imaged. Could not be evaluated due to nondistended bladder but may represent a uterine fibroid. Recommend clinical correlation. Further imaging may be obtained if clinically indicated. Dictated by Wil Sanchez MD (student affairs vice president). Dr. Levi Mike M.D. have personally reviewed and interpreted this examination/study. This report was electronically signed by Levi HERNANDEZ M.D. ??on 06/20/2019 2:07 PM . Narrative 06/20/2019 2:07 PM SALES OPERATIONS CONSULTANT EXAMINATION: Complete retroperitoneal sonogram HISTORY: ckd, proteinuria COMPARISON: No prior study is available for comparison at the time of this dictation. FINDINGS: Right kidney: 12.8 x 4.3 x 5.7 cm Left kidney: 11.9 x 6.2 x 4.9 cm Renal parenchymal echogenicity is normal. There is no evidence of a solid renal mass, renal calculi, or hydronephrosis. Blood flow is seen within the renal arteries and veins. The urinary bladder could not be located due to nondistended state. Soft tissue mass is visualized in the pelvis measuring approximately 7.9 x 5.8 cm likely representing a uterine fibroid although only partially included and cannot be fully evaluated. Procedure Note Nikky Hernandez MD - 06/20/2019 EXAMINATION: Complete retroperitoneal sonogram HISTORY: ckd, proteinuria COMPARISON: No prior study is available for comparison at the time ofthis dictation. FINDINGS: Right kidney: 12.8 x 4.3 x 5.7 cm Left kidney: 11.9 x 6.2 x 4.9 cm Renal parenchymal echogenicity is normal. There is no evidence of asolid renal mass, renal calculi, or hydronephrosis. Blood flow is seen within the renal arteries and veins. The urinary bladder could not be located due to nondistended state. Soft tissue mass is visualized in the pelvis measuring approximately 7.9 x5.8 cm likely representing a uterine fibroid although only partiallyincluded and cannot be fully evaluated. IMPRESSION: Normal renal size. No evidence of nephrolithiasis, hydronephrosis, or solid renal mass. Pelvic soft tissue density, partially imaged. Could not be evaluated due to nondistended bladder but may represent a uterine fibroid. Recommend clinical correlation. Further imaging may be obtained if clinically indicated. Dictated by Wil Sanchez MD (student affairs vice president). I, Dr. Levi HERNANDEZ M.D. have personally reviewed and interpretedthis examination/study. This report was electronically signed by Levi HERNANDEZ M.D. on 06/20/2019 2:07 PM . Roberto Manrique MD ORDERABLES * EYE EXAM (06/03/2019 6:27 AM CDT) Anatomical Region Laterality Modality Other Narrative 06/03/2019 6:27 AM CDT Ordered by an unspecified provider. Scanned Document SCANNING ONLY * MAMMOGRAM (06/03/2019) Anatomical Region Laterality Modality Other Historical Provider SCANNING ONLY * TROPONIN I (05/30/2019 6:22 PM CDT) Only the most recent of4 resultswithin the time period is included. Troponin I <0.010 <0.032 ng/mL 05/30/2019 6:54 PM CDT [facility] Blood BLOOD SPECIMEN / Unknown Venipuncture / Unknown 05/30/2019 6:22 PM CDT 05/30/2019 6:30 PM CDT Che Wolfe DIGGING MACHINE OPERATOR-TECHNICAL PROJECT COORDINATOR LAB - CHEMISTRY OR DERABLES [facility] [address] [place] [address], [facility] [phone] * (ABNORMAL) CBC W AUTO DIFFERENTIAL (05/30/2019 6:22 PM CDT) Only the most recent of9 resultswithin the time period is included. WBC 6.2 3.5 - 10.5 10? 3 /uL 05/30/2019 6:33 PM [facility] RBC 5.34(H) 3.90 - 5.00 10? 6 /uL 05/30/2019 6:33 PM [facility] Hemoglobin 13.4 12.0 - 15.5 g/dL 05/30/2019 6:33 PM [facility] Hematocrit 43.2 35.0 - 45.0 % 05/30/2019 6:33 PM [facility] MCV 80.9(L) 81.0 - 97.0 fL 05/30/2019 6:33 PM [facility] MCH 25.1(L) 28.0 - 34.0 pg 05/30/2019 6:33 PM [facility] MCHC 31.0(L) 32.0 - 36.0 g/dL 05/30/2019 6:33 PM [facility] Platelet Count 294 150 - 400 10? 3 /uL 05/30/2019 6:33 PM [facility] RDW-SD 51.8(H) 36.0 - 50.0 fL 05/30/2019 6:33 PM [facility] RDW-CV 17.6(H) 11.2 - 14.8 % 05/30/2019 6:33 PM [facility] MPV 10.5 9.3 - 12.8 fL 05/30/2019 6:33 PM [facility] nRBC Absolute 0.00 0 10? 3 /uL 05/30/2019 6:33 PM [facility] nRBC Auto 0.0 0 /100 WBC 05/30/2019 6:33 PM [facility] Neutrophils % 52.1 35.0 - 70.0 % 05/30/2019 6:33 PM [facility] Lymphocytes % 34.6 19.7 - 55.1 % 05/30/2019 6:33 PM [facility] Monocytes % 9.2 3.0 - 15.0 % 05/30/2019 6:33 PM [facility] Eosinophils % 3.4 0.0 - 6.0 % 05/30/2019 6:33 PM [facility] Basophil % 0.5 0.0 - 1.5 % 05/30/2019 6:33 PM [facility] Neutrophils Absolute 3.3 1.6 - 7.0 10? 3 /uL 05/30/2019 6:33 PM T [facility] Lymphocyte Absolute 2.2 0.8 - 2.9 10? 3 /uL 05/30/2019 6:33 PM [facility] Monocytes Absolute 0.57 0.14 - 0.66 10? 3 /uL 05/30/2019 6:33 PM [facility] Eosinophils Absolute 0.21 0.00 - 0.45 10? 3 /uL 05/30/2019 6:33 PM T [facility] Basophils Absolute 0.03 0.00 - 0.06 10? 3 /uL 05/30/2019 6:33 PM [facility] Immature Granulocytes % 0.2 0.0 - 1.0 % 05/30/2019 6:33 PM [facility] Blood BLOOD SPECIMEN / Unknown Venipuncture / Unknown 05/30/2019 6:22 PM CDT 05/30/2019 6:30 PM CDT Che Wolfe DIGGING MACHINE OPERATOR-TECHNICAL PROJECT COORDINATOR LAB - HEMATOLOGY O RDERABLES [facility] [address] [place] [address] * (ABNORMAL) URINALYSIS W/MICROSCOPIC NO CULTURE (03/07/2019 9:29 AM CDT) Only the most recent of3 resultswithin the time period is included. Color UA YELLOW YELLOW [facility] Appearance CLEAR CLEAR [facility] Specific [place] UA 1.016 1.001 - 1.035 [facility] pH UA 5.5 5.0 - 8.0 [facility] Glucose UA NEGATIVE NEGATIVE [facility] Bilirubin UA NEGATIVE NEGATIVE [facility] Ketone UA NEGATIVE NEGATIVE [facility] Blood UA NEGATIVE NEGATIVE [facility] Protein UA NEGATIVE NEGATIVE [facility] Nitrite UA NEGATIVE NEGATIVE [facility] Leukocyte UA NEGATIVE NEGATIVE [facility] WBC UA 0-5 < OR = 5 /HPF [facility] RBC UA 0-2 < OR = 2 /HPF [facility] Epithelial Cell UA 0-5 < OR = 5 /HPF [facility] Bacteria UA FEW(A) NONE SEEN /HPF [facility] Hyaline Casts NONE SEEN NONE SEEN /LPF [facility] Comment: Test Performed at: [facility] [address] [place], [place] ??[phone] KATHY PEREZ DO,MPH 03/07/2019 9:29 AM CDT 03/07/2019 9:29 AM CDT Roberto Manrique MD LAB - URINALYSIS ORD ERABLES Performing Organization Address [facility] Co de Phone Number [facility] [address] [place] [address] * PROTEIN CREATININE RATIO URINE RANDOM PNL (03/07/2019 9:29 AM CDT) Creatinine Urine 120 20 - 275 mg/dL [facility] Protein/Creatini ne Ratio 108 21 - 161 mg/g creat [facility] Protein Random Urine 13 5 - 24 mg/dL [facility] Comment: REPORT COMMENT: SPLIT 02/28/2019 FROM [id number] Test Performed at: [facility] [address] [place] [address] ??[phone] KATHY PEREZ DO,MPH 03/07/2019 9:29 AM CDT 03/07/2019 9:29 AM CDT Roberto Manrique MD LAB - URINE CHEMISTR Y ORDERABLES Performing Organization Address [facility] Co de Phone Number [facility] [address] [place] [address] * MAGUE BLOOD SCREEN W/REFLEX TITER (02/28/2019 11:57 AM CDT) Pathologist [facility] [place] MAGUE Screen NEGATIVE NEGATIVE [facility] Comment: MAGUE IFA is a first line screen for detecting the presence of up to approximately 150 autoantibodies in various autoimmune diseases. A negative MAGUE IFA result suggests MAGUE-associated autoimmune diseases are not present at this time. Visit Physician FAQs for interpretation of all antibodies in the [place], prevalence, and association with diseases at http://education.CareShare.KelDoc/ faq/CGA501 ?? Test Performed at: [email or web address] [place], [place] ??[phone] KATHY PEREZ DO,MPH 02/28/2019 11:5 7 AM CDT 02/28/2019 12:03 PM CDT Roberto Manrique MD LAB - CHEMISTRY [place] Performing Organization Address [facility] Co de Phone Number [facility] [phone] [place] [address] * COMPLEMENT C4 (02/28/2019 11:57 AM CDT) Complement C4 41 15 - 57 mg/dL [facility] Comment: REPORT COMMENT: PATIENT UNABLE TO VOID; ADVISED TO RETURN FOR COLLECTION. Test Performed at: [facility] [place], [place] ??[phone] KATHY PEREZ DO,MPH 02/28/2019 11:5 7 AM CDT 02/28/2019 12:03 PM CDT Roberto Manrique MD LAB - SEROLOGY ORDER BALWINDER Performing Organization Address [facility] Co de Phone Number [facility] [phone] [place] [address] * COMPLEMENT C3 (02/28/2019 11:57 AM CDT) Complement C3 152 83 - 193 mg/dL [facility] Comment: Test Performed at: [facility] [place], [place] ??[phone] KATHY PEREZ DO,MPH 02/28/2019 11:5 7 AM CDT 02/28/2019 12:03 PM CDT Roberto Manrique MD LAB - CHEMISTRY [place] DC Performing Organization Address [facility] Co de Phone Number [facility] [address] [place] [address] * (ABNORMAL) CREATININE URINE RANDOM (02/28/2019 11:27 AM CDT) Creatinine Urine 378(H) 20 - 275 mg/dL [facility] Comment: Verified by repeat analysis. REPORT COMMENT: SPLIT 02/28/2019 FROM [id number] Test Performed at: [facility] [id number] [place], [place] ??[phone] KATHY PEREZ DO,MPH 02/28/2019 11:2 7 AM CDT 02/28/2019 11:27 AM CDT Catherine KATZ LAB - URINE CHEM ISTRY ORDERABLES Performing Organization Address [facility] Co de Phone Number [facility] [phone] [place] [phone] * (ABNORMAL) FERRITIN (02/28/2019 8:43 AM CDT) [facility] Ferritin 6(L) 16 - 232 ng/mL [facility] Comment: REPORT COMMENT: PATIENT UNABLE TO VOID; ADVISED TO RETURN FOR COLLECTION. Test Performed at: [facility] [address] ??[phone] KATHY PEREZ DO,MPH Blood BLOOD SPECIMEN / Unknown 02/28/2019 8:43 AM CDT 02/28/2019 8:51 AM CDT Catherine KATZ LAB - CHEMISTRY ORDERABLES Performing Organization Address [facility] Co de Phone Number [facility] [phone] [place] [address] * LAB RESULTS ORDER (12/10/2018 10:49 AM CDT) Only the most recent of2 resultswithin the time period is included. Narrative 12/10/2018 10:49 AM CDT Ordered by an unspecified provider. Scanned Document LAB - THERAPEUTIC DR UG MONITORING ORDERABLES * (ABNORMAL) PROTEIN URINE TIMED QUANTITATIVE (11/30/2018 9:24 AM CDT) [facility] Protein 24 Hour Urine 285(H) <150 mg/24 h [facility] Comment: TOTAL URINE VOLUME: 1500/24 REPORT COMMENT: AN UPDATE OR CORRECTION HAS BEEN MADE TO NAME Test Performed at: [facility] [place], [place] ??[phone] KATHY PEREZ DO,MPH Urine TIMED URINE SPECIMEN / Unknown 11/30/2018 9:24 AM CDT 11/30/2018 9:25 AM CDT Catherine Salmeron DIGGING MACHINE OPERATOR-TECHNICAL PROJECT COORDINATOR LAB - URINE CHEM ISTRY ORDERABLES [facility] [address] [place] [address] * MAMMO BILAT SCREENING (03/22/2017 10:59 AM CDT) Only the most recent of2 resultswithin the time period is included. Anatomical Region Laterality Modality Breast Bilateral Other Impressions 03/23/2017 11:35 AM CDT IMPRESSION: No evidence of malignancy ASSESSMENT: BIRADS Category 1: ?? Negative mammogram. RECOMMENDATION: Bilateral screening mammogram in one year. This report was electronically signed by KATHY ROSS M.D. ??on 03/23/2017 11:35 AM . Narrative 03/23/2017 11:35 AM CDT BILATERAL SCREENING MAMMOGRAM DATE: 03/22/2017. COMPARISON: 2014 HISTORY: Screening mammogram. TECHNIQUE: The breasts were imaged in the cranial caudal and medial lateral oblique views using reconstructed/synthetic 2D and 3D tomosynthesis, and CAD analysis. BREAST COMPOSITION: The breasts are almost entirely fatty. RISK ASSESSMENT CALCULATION: Based on the information provided by the patient, her lifetime risk of breast cancer is average (<15%) FINDINGS: There is no suspicious mass, clustered microcalcification, or architectural distortion in either breast on 2D or 3D images. There has been no change in the mammographic appearance compared with the prior study. Procedure Note Kathy Ross MD - 11/09/2017 BILATERAL SCREENING MAMMOGRAM DATE: 03/22/2017. COMPARISON: 2014 HISTORY: Screening mammogram. TECHNIQUE: The breasts were imaged in the cranial caudal and medial lateral obliqueviews using reconstructed/synthetic 2D and 3D tomosynthesis, and CADanalysis. BREAST COMPOSITION: The breasts are almost entirely fatty. RISK ASSESSMENT CALCULATION: Based on the information provided by thepatient, her lifetime risk of breast cancer is average (<15%) FINDINGS: There is no suspicious mass, clustered microcalcification, orarchitectural distortion in either breast on 2D or 3D images. There hasbeen no change in the mammographic appearance compared with the priorstudy. IMPRESSION IMPRESSION: No evidence of malignancy ASSESSMENT: BIRADS Category 1: Negative mammogram. RECOMMENDATION: Bilateral screening mammogram in one year. This report was electronically signed by KATHY ROSS M.D. on03/23/2017 11:35 AM . Farheen Lafleur MD MAMMO ORDERABLES * (ABNORMAL) GLUCOSE ACCUCHECK (04/06/2016 10:40 AM CDT) Only the most recent of9 resultswithin the time period is included. Pathologist [facility] [place] Glucose, Fingerstick 162(H) 70-115mg/d L mg/dL [facility] ([facility]) Comment:Prick Stitcher: Crista rdz 04/06/2016 10:4 0 AM CDT Raul Moore MD LAB - CHEMISTRY [place] [facility] ([facility]) * CK + CKMB PANEL (04/13/2015 5:23 PM CDT) Pathologist [facility] [place] CK Total 139 30 - 200 Units/L [facility] CK-MB 2.4 0.0 - 6.6 ng/mL [facility] Blood specimen (specimen) BLOOD SPECIMEN / Unknown 04/13/2015 5:23 PM CDT 04/13/2015 5:23 PM CDT Casandra Belle MD LAB - CHEMISTRY [place] [address] [phone] * HCG URINE QUALITATIVE - POCT (IP) [facility] (04/12/2015 8:55 PM CDT) Only the most recent of2 resultswithin the time period is included. Pathologist [facility] [place] Test Urine negative [facility] Urine specimen (specimen) 04/12/2015 8:55 PM CDT Bryson Tamayo MD LAB - POINT [facility] RE ORDERABLES [facility] * DRUG ABUSE PANEL 10-20+ETHANOL URINE NO CONFIRM (04/12/2015 8:55 PM CDT) Amphetamines Screen Urine Negative Negative: < 1000 ng/mL [facility] Barbiturates Screen Urine Negative Negative: < 200 ng/mL [facility] Benzodiazepine Screen Urine Negative Negative: < 200 ng/mL [facility] Opiates Urine Negative Negative: < 300 ng/mL [facility] Cocaine Metabolites Urine Negative Negative: < 300 ng/mL [facility] Phencyclidine Screen Urine Negative Negative: < 25 ng/ml [facility] Cannabinoids Screen Urine Negative Negative: <50 ng/mL [facility] Methadone Screen Urine Negative Negative: < 300 ng/mL [facility] Urine specimen (specimen) URINE / Unknown 04/12/2015 8:55 PM CDT 04/12/2015 8:59 PM CDT Narrative [facility] - 04/12/2015 9:15 PM CDT The Urine Toxicology Screening Panel does not screen for Propoxyphene, Meprobamate, Carisoprodol, Trazodone, ijlu-wec-tployzv medications and/or volatiles (Acetone, Isopropanol, Methanol or Ethylene Glycol). Ethanol, Salicylate, Acetaminophen, Tricyclic Antidepressants and several therapeutic drugs may be individually assayed in serum or plasma specimen. Toxicology testing by the [facility] is an aid to medical diagnosis and treatment of patients. No documented chain of custody was maintained. Results are intended to be used for clinical purposes only. ? Bryson Tamayo MD LAB - URINE CHEMI STRY ORDERABLES [facility] [address] [place] [address], [facility] [phone] * XR CHEST 1VW PORTABLE (04/12/2015 7:54 PM CDT) Anatomical Region Laterality Modality Chest Other Impressions 04/13/2015 12:13 PM CDT Impression: No acute pulmonary disease. Reported dictated by Micky Hicks MD (student affairs vice president). IDr. SUSAN M.D. have personally reviewed and interpreted this examination/study. This report was electronically signed by SUSAN SALGUERO M.D. ??on 04/13/2015 12:13 PM . Narrative 04/13/2015 12:13 PM CDT Chest, 1 views History: Hypertension Comparison: November 07, 2011 Findings: There is no focal consolidation, pleural effusion or pneumothorax. The cardiomediastinal silhouette is normal. The osseous structures are intact. Procedure Note Susan Salguero MD - 11/10/2017 Chest, 1 views History: Hypertension Comparison: November 07, 2011 Findings: There is no focal consolidation, pleural effusion orpneumothorax. The cardiomediastinal silhouette is normal. The osseousstructures are intact. IMPRESSION Impression: No acute pulmonary disease. Reported dictated by Micky Hicks MD (student affairs vice president). IDr. SUSAN M.D. have personally reviewed and interpreted thisexamination/study. This report was electronically signed by SUSAN SALGUERO M.D. on 04/13/201512:13 PM . Bryson Tamayo MD DIAGNOSTIC IMAGIN G ORDERABLES * CT HEAD WO CONTRAST (04/12/2015 5:00 PM CDT) Anatomical Region Laterality Modality Head Other Impressions 04/13/2015 9:45 AM CDT IMPRESSION: 1. No acute intracranial hemorrhage or infarct. 2. Unchanged extensive periventricular white matter hypoattenuation, multiple hypoattenuating foci within the basal ganglia, and a focus of hypoattenuation within the olivier, which likely represent chronic small vessel ischemic disease with lacunar infarctions given the patient's history of hypertension and diabetes. Sequela of toxicity and metabolic disorder are the other differential considerations. This report was approved ??by Reji Llanes ?? on 04/13/2015 8:44 AM . I, Dr. GLENDY MACHADO M.D. have personally reviewed and interpreted this examination/study. This report was electronically signed by GLENDY MACHADO M.D. ??on 04/13/2015 9:45 AM . Narrative 04/13/2015 9:45 AM CDT EXAMINATION: Computed tomography (CT) of the head without contrast HISTORY: Dizziness, word finding difficulty, slurred speech TECHNIQUE: CT of the head was performed without contrast according to standard protocol. FINDINGS: Comparison was made with MRI brain 11/03/2014 No evidence of acute hemorrhage or infarct. No acute intra- or extra-axial fluid collections are identified. The ventricles are of normal size, shape, and morphology. There is mild diffuse cerebral volume loss. The basilar cisterns are patent. No mass effect or midline shift is seen. ??An extensive amount of confluent periventricular white matter hypoattenuation is present, which is unchanged from previous exam. Multiple unchanged foci of hypoattenuation are also seen within the basal ganglia, likely representing lacunar infarction. An unchanged area of hypoattenuation is seen in the olivier, also representing chronic lacunar infarction. Given the patient's history of hypertension and diabetes, these findings are most consistent with chronic small vessel ischemic disease with lacunar infarction. Other than a mucus retention cyst in the right maxillary sinus, the visualized portions of the orbits, paranasal sinuses, and mastoids appear normal. No acute fracture is identified. Procedure Note Manolo Quijano MD - 11/10/2017 EXAMINATION: Computed tomography (CT) of the head without contrast HISTORY: Dizziness, word finding difficulty, slurred speech TECHNIQUE: CT of the head was performed without contrast according tostandachelita protocol. FINDINGS: Comparison was made with MRI brain 11/03/2014 No evidence of acute hemorrhage or infarct. No acute intra- or extra-axialfluid collections are identified. The ventricles are of normal size,shape, and morphology. There is mild diffuse cerebral volume loss. Thebasilar cisterns are patent. No mass effect or midline shift is seen. An extensive amount of confluentperiventricular white matter hypoattenuation is present, which isunchanged from previous exam. Multiple unchanged foci of hypoattenuationare also seen within the basal ganglia, likely representing lacunar infarction. An unchanged area of hypoattenuation isseen in the olivier, also representing chronic lacunar infarction. Given thepatient's history of hypertension and diabetes, these findings are mostconsistent with chronic small vessel ischemic disease with lacunar infarction. Other than a mucus retention cyst in the right maxillary sinus, thevisualized portions of the orbits, paranasal sinuses, and mastoids appearnormal. No acute fracture is identified. IMPRESSION IMPRESSION: 1. No acute intracranial hemorrhage or infarct. 2. Unchanged extensive periventricular white matter hypoattenuation,multiple hypoattenuating foci within the basal ganglia, and a focus ofhypoattenuation within the olivier, which likely represent chronic smallvessel ischemic disease with lacunar infarctions given the patient's history of hypertension and diabetes.Sequela of toxicity and metabolic disorder are the other differentialconsiderations. This report was approved by Reji Llanes on 04/13/2015 8:44 AM . I, Dr. GLENDY MACHADO M.D. have personally reviewed and interpreted thisexamination/study. This report was electronically signed by GLENDY MACHADO M.D. on 04/13/20159:45 AM . Bhavik Zheng MD CT ORDERABLES * MRI BRAIN WWO CONTRAST (11/03/2014 11:57 AM CDT) Anatomical Region Laterality Modality Head Other Impressions 11/03/2014 12:40 PM CDT IMPRESSION: 1. Interval increase in extensive periventricular, subcortical, and pontine T2/FLAIR hyperintensities which also appear to involve the external capsules and the left anterior temporal lobe as well as the corpus callosum without evidence of enhancement or diffusion restriction. There are also foci of lacunar injury in these regions. Given the pattern of findings and the patient's relatively young age, a demyelinating process such as multiple sclerosis with associated myelin vacuolization could cause this appearance. Alternatively, given the patient's history of hypertension and diabetes, extensive small vessel ischemic disease with lacunar infarctions could also cause and/or may be contributing to this appearance. Finally, a genetic disorder known as CADASIL can cause findings consistent with small vessel ischemic disease as well as lacunar infarctions with involvement of the external capsules and anterior temporal lobes in relatively young patients. Clinical correlation is recommended. 2. No evidence of aneurysm or significant vascular stenosis noted on this study. Note is made that a magnetic resonance angiogram (MRA) of the brain may be more sensitive for the detection of small aneurysms. This report was electronically signed by TUNG ALBERTO M.D. ??on 11/03/2014 12:40 PM . Narrative 11/03/2014 12:40 PM CDT EXAMINATION: Magnetic resonance imaging (MRI) of the brain without and with contrast HISTORY: Hypertension, diabetes, family history of aneurysm. TECHNIQUE: MRI of the brain was performed prior to and following the uneventful administration of Gadavist 10 mL intravenous gadolinium contrast according to tumor protocol. FINDINGS: Comparison is made to prior brain MR from 05/08/2007. No evidence of acute cerebral infarction is seen. Small foci of T2* hypointensity in the right basal ganglia may represent mineral deposition or microhemorrhage. Ventricles are of normal size, shape, and morphology. There is extensive periventricular and subcortical as well as pontine T2/FLAIR hyperintensity which has progressed when compared with the prior study from 05/08/2007. There are several foci of T1 hypointensity in these regions without enhancement which may represent lacunar infarctions or potentially myelin vacuolization. There appears to be involvement of the external capsules as well as the anterior temporal lobes with these foci of T2/FLAIR hyperintensity. No enhancing lesions are identified. Foci of injury also appear to be involving the corpus callosum, increased when compared with the prior study. The sella appears normal. The craniocervical junction appears normal. Small mucus retention cyst in the maxillary sinuses. Otherwise, the visualized portions of the orbits, mastoids and paranasal sinuses appear normal. Normal flow voids are demonstrated in the carotid arteries and basilar artery. The calvarium and visualized cervical spine appear normal. Procedure Note Tung Alberto MD - 11/10/2017 EXAMINATION: Magnetic resonance imaging (MRI) of the brain without andwith contrast HISTORY: Hypertension, diabetes, family history of aneurysm. TECHNIQUE: MRI of the brain was performed prior to and following theuneventful administration of Gadavist 10 mL intravenous gadoliniumcontrast according to tumor protocol. FINDINGS: Comparison is made to prior brain MR from 05/08/2007. No evidence of acute cerebral infarction is seen. Small foci of T2*hypointensity in the right basal ganglia may represent mineral depositionor microhemorrhage. Ventricles are of normal size, shape, and morphology.There is extensive periventricular and subcortical as well as pontine T2/FLAIR hyperintensity which hasprogressed when compared with the prior study from 05/08/2007. There areseveral foci of T1 hypointensity in these regions without enhancementwhich may represent lacunar infarctions or potentially myelin vacuolization. There appears to be involvement of theexternal capsules as well as the anterior temporal lobes with these fociof T2/FLAIR hyperintensity. No enhancing lesions are identified. Foci ofinjury also appear to be involving the corpus callosum, increased when compared with the prior study. Thesella appears normal. The craniocervical junction appears normal. Small mucus retention cyst in the maxillary sinuses. Otherwise, thevisualized portions of the orbits, mastoids and paranasal sinuses appearnormal. Normal flow voids are demonstrated in the carotid arteries andbasilar artery. The calvarium and visualized cervical spine appear normal. IMPRESSION IMPRESSION: 1. Interval increase in extensive periventricular, subcortical, andpontine T2/FLAIR hyperintensities which also appear to involve theexternal capsules and the left anterior temporal lobe as well as thecorpus callosum without evidence of enhancement or diffusion restriction. There are also foci of lacunar injury in theseregions. Given the pattern of findings and the patient's relatively youngage, a demyelinating process such as multiple sclerosis with associatedmyelin vacuolization could cause this appearance. Alternatively, given the patient's history of hypertensionand diabetes, extensive small vessel ischemic disease with lacunarinfarctions could also cause and/or may be contributing to thisappearance. Finally, a genetic disorder known as CADASIL can cause findings consistent with small vessel ischemic diseaseas well as lacunar infarctions with involvement of the external capsulesand anterior temporal lobes in relatively young patients. Clinicalcorrelation is recommended. 2. No evidence of aneurysm or significant vascular stenosis noted on thisstudy. Note is made that a magnetic resonance angiogram (MRA) of the brainmay be more sensitive for the detection of small aneurysms. This report was electronically signed by TUNG ALBERTO M.D. on 11/03/201412:40 PM . Farheen Lafleur MD MR ORDERABLES * CREATININE BLOOD - POCT (IP) [facility] (11/03/2014) Creatinine POCT 0.73 0.3 - 1.3 mg/dL [facility] eGFR POCT 60 60 ml/min [facility] 11/03/2014 aFrheen Lafleur MD LAB - POINT OF CARE ORDERABLES [facility] * (ABNORMAL) VITAMIN D 25-HYDROXY D2+D3 BY TANDEM MASS (09/04/2014 9:30 AM SALES OPERATIONS CONSULTANT) Only the most recent of2 resultswithin the time period is included. Vitamin D, 25 Hydroxy Total 9(L) 30 - 100 ng/mL [facility] ([facility]) Comment: 25-OHD3 indicates both endogenous production and supplementation. 25-OHD2 is an indicator of exogenous sources, such as diet or supplementation. Therapy is based on measurement of Total 25-OHD, with levels <20 ng/mL indicative of Vitamin D deficiency, while levels between 20 ng/mL and 30 ng/mL suggest insufficiency. Optimal levels are > or = 30 ng/mL. Vitamin D, 25 Hydroxy D3 9 See Below ng/mL [facility] ([facility]) Comment:Reference Range: Not established Vitamin D, 25 Hydroxy D2 <4 See Below ng/mL [facility] ([facility]) Comment: Reference Range: Not established REPORT COMMENT: FASTING:YES Test Performed at: [facility] [address] [place], [place] ??[phone] CASANDRA ANGULO MD,FCAP Blood specimen (specimen) BLOOD SPECIMEN / Unknown 09/04/2014 9:30 AM SALES OPERATIONS CONSULTANT 09/04/2014 9:31 AM SALES OPERATIONS CONSULTANT Farheen Lafleur MD LAB - CHEMISTRY [place] Performing Organization Address [facility] de Phone Number [facility] ([facility]) * DIFFERENTIAL MANUAL (09/04/2014 9:30 AM SALES OPERATIONS CONSULTANT) CBC Morphology NORMAL [facility] ([facility]) Comment: Target cells 1 + Microcytosis 2 + REPORT COMMENT: FASTING:YES Test Performed at: [facility] [address] [place], [place] ??[phone] KATHY PEREZ DO,MPH 09/04/2014 9:30 AM SALES OPERATIONS CONSULTANT 09/04/2014 9:31 AM SALES OPERATIONS CONSULTANT Farheen Lafleur MD LAB - HEMATOLOGY ORD ERAGERARD Performing Organization Address [facility] de Phone Number [facility] ([facility]) * HEPATITIS C ANTIBODY (09/04/2014 9:30 AM SALES OPERATIONS CONSULTANT) Pathologist [facility] [place] Hepatitis C Antibody NON-REACTI VE NON-REACT MATEO [facility] ([facility]) Signal/Cutoff 0.03 <1.00 [facility] ([facility]) Comment: REPORT COMMENT: FASTING:YES Test Performed at: [facility] [place] [address] [place], [place] ??[phone] KATHY PEREZ DO,MPH Blood specimen (specimen) BLOOD SPECIMEN / Unknown 09/04/2014 9:30 AM SALES OPERATIONS CONSULTANT 09/04/2014 9:31 AM SALES OPERATIONS CONSULTANT Farheen Lafleur MD LAB - CHEMISTRY [place] DC Performing Organization Address [facility] de Phone Number [facility] ([facility]) * CT ABDOMEN PELVIS W CONTRAST (07/05/2012 6:20 PM SALES OPERATIONS CONSULTANT) Anatomical Region Laterality Modality Abdomen, Pelvis Other Impressions 07/06/2012 12:01 PM SALES OPERATIONS CONSULTANT Impression: 1. No acute process within the abdomen or pelvis. No findings to explain clinical symptoms. 2. A 3 mm right middle lobe pulmonary nodule, highly likely benign. If the patient has known risk factors for malignancy such as smoking, followup in 12 months is recommended. Preliminary results were discussed with Dr. Zheng in the ED by the senior economist resident on 07/05/2012 at 1855. Report dictated by Jose E Boyce M.D. (resident). I, Dr. JOSE FLYNN M.D. have personally reviewed and interpreted this examination/study. This report was electronically signed by JOSE FLYNN M.D. ??on 07/06/2012 12:01 PM . Narrative 07/06/2012 12:01 [address] CON[address]ANT CT abdomen with contrast CT pelvis with contrast Date: 07/05/2012 History: ??Abdominal pain Technique: Multislice helical CT with axial images of the abdomen and pelvis with coronal reconstructions. Contrast: Intravenous, [address] abdomen: A 3 mm subpleural nodule is seen within the right middle lobe (series 2 image 3). The lung bases are otherwise clear. There is a 1.6 x 2.6 cm fluid density structure in the right cardiac border that may represent a pericardial recess versus cyst. The intrahepatic and extrahepatic bile ducts are not dilated. No focal intrahepatic lesion is visible. ??The gallbladder is decompressed. The pancreas enhances normally. The spleen is normal. The adrenal glands are normal. The enhancement of the kidneys is bilaterally symmetrical. The collecting systems are not dilated. The bowel loops are normal. A normal appendix is located in the right lower quadrant. No free intraperitoneal air or fluid is visible. No loculated fluid collections are seen. No significant abdominal lymphadenopathy or masses are visible. The enhanced vascular structures are normal. CT pelvis: There is no free fluid in the pelvis. The uterus is normal. The osseous structures are intact. Procedure Note Jose Flynn MD - 11/11/[address] abdomen with contrast CT pelvis with contrast Date: 07/05/2012 History: Abdominal pain Technique: Multislice helical CT with axial images of the abdomen andpelvis with coronal reconstructions. Contrast: Intravenous, [address] abdomen: A 3 mm subpleural nodule is seen within the right middle lobe (series 2image 3). The lung bases are otherwise clear. There is a 1.6 x 2.6 cmfluid density structure in the right cardiac border that may represent apericardial recess versus cyst. The intrahepatic and extrahepatic bile ducts are not dilated. No focalintrahepatic lesion is visible. The gallbladder is decompressed. Thepancreas enhances normally. The spleen is normal. The adrenal glands arenormal. The enhancement of the kidneys is bilaterally symmetrical. The collecting systems are not dilated. Thebowel loops are normal. A normal appendix is located in the right lowerquadrant. No free intraperitoneal air or fluid is visible. No loculatedfluid collections are seen. No significant abdominal lymphadenopathy or masses are visible. The enhancedvascular structures are normal. CT pelvis: There is no free fluid in the pelvis. The uterus is normal. The osseousstructures are intact. IMPRESSION Impression: 1. No acute process within the abdomen or pelvis. No findings to explainclinical symptoms. 2. A 3 mm right middle lobe pulmonary nodule, highly likely benign. If thepatient has known risk factors for malignancy such as smoking, followup in12 months is recommended. Preliminary results were discussed with Dr. Zheng in the ED by the oncall resident on 07/05/2012 at 1855. Report dictated by Jose E Boyce M.D. (resident). I, Dr. JOSE FLYNN M.D. have personally reviewed and interpreted thisexamination/study. This report was electronically signed by JOSE FLYNN M.D. on07/06/2012 12:01 PM . Anusha Contreras MD CT ORDERABLES * HCG BLOOD QUALITATIVE (07/05/2012 2:17 PM SALES OPERATIONS CONSULTANT) NEGATIVE NEGATIVE [facility] Comment:PERFORMED BY: DANILO MAZARIEGOS 07/05/2012 2:17 PM SALES OPERATIONS CONSULTANT 07/05/2012 7:43 PM SALES OPERATIONS CONSULTANT Anusha Contreras MD LAB - CHEMISTRY [place] [address] [phone] * LIPASE BLOOD (07/05/2012 2:16 PM SALES OPERATIONS CONSULTANT) Lipase 16 8 - 78 Units/L [facility] Serum 07/05/2012 2:16 PM SALES OPERATIONS CONSULTANT 07/05/2012 2:22 PM SALES OPERATIONS CONSULTANT Sara FLORES LAB - CHEMISTRY [place] [facility] [address] [place] [address], [facility] [phone] * GLUCOSE - POINT OF CARE (AMB) U (07/05/2012 2:04 PM SALES OPERATIONS CONSULTANT) Only the most recent of2 resultswithin the time period is included. Anusha Contreras MD LAB - POINT OF CARE ORDERABLES [facility] * LAB HISTORICAL RESULTS-ONBASE (03/28/2008 12:00 AM CDT) 03/28/2008 Historical Provider LAB - CHEMISTRY O RDERABLES [facility] Care Teams Retail Account Representative Relationship Specialty Start Date End Date Neil Velasquez MD [address] [place] [address] PCP - General Internal Medicine 10/24/23
--- OUTSIDE RECORDS SUMMARY | 2024-08-02 09:58 | XMS_ITS | Encounter Summary ---
Author Organization [facility] Health Address [address] [place] [address] Care Team Providers Care Raw Sampler Name Role Phone Neil Velasquez MD Primary Care Provider [phone] Reason for Visit * Reason Onset Date Comments Forms 07/21/2024 Encounter Details Date Type Department Care Team (Late st Contact Info) Description 07/21/2024 Telephone [facility] - Internal Med [address] [facility], [place] [phone] Neil Velasquez MD [address] [facility] [place] [address] Forms (/) Social History Tobacco Use Types Packs/Day Years Used Date Smoking Tobacco: Never Smokeless Tobacco: Never Alcohol Use Standard Drinks/Week Comments Yes 1 (1 standard drink = 0.6 oz pur e alcohol) socially PHQ-2 Answer Date Recorded Patient Health Questionnaire-2 Score 0 07/03/2024 Sex and Gender Information Value Date Recorded Sex Assigned at Not on file Gender Identity Not on file Sexual Orientation Not on file documented as of this encounter Miscellaneous Notes * Telephone Encounter - Shelbie Turner LPN - 07/21/2024 11:22 AM MUSIC COPYIST Form printed from media and placed in providers box. C COPYIST * Telephone Encounter - Latanya Diaz, RN - 07/21/2024 8:30 AM MUSIC COPYIST Patient calling states she just spoke with someone regarding where to have her surgeon fax letter for needing surgical clearance forms but needs clarification. Patient states she is scheduled for right knee surgery due to as tear in her knee at [facility] 07/28/[address] Jeyson Lowery. Patient has appointment scheduled with Dr. Tami Comer for surgical clearance 07/24/24. Triage nurse informed the patient the for for request of medication information should be faxed to [facility] [phone]. Patient thanked the nurse for assistance. C COPYIST documented in this encounter Plan of Treatment Upcoming Encounters Date Type Department Care Team (Late st Contact Info) Description 12/15/2024 1:00 PM CDT Office Visit [facility] - Internal Med [address] [facility] [address] [facility] [address] [place] [address] Neil Velasquez MD [address] [place] [address] documented as of this encounter Visit Diagnoses Not on filedocumented in this encounter Care Teams Raw Sampler Relationship Specialty Start Date End Date Neil Velasquez MD [address] [place] [address] PCP - General Internal Medicine 10/24/23 documented as of this encounter
--- OUTSIDE RECORDS SUMMARY | 2024-08-02 09:58 | XMS_ITS | Clinical Summary ---
Author Organization [facility] Address [address] [place] [address] Care Team Providers Care Brake Operator Heavy Duty Name Role Phone Neil Velasquez MD Primary Care Provider Source Comments [facility],non-owned Affiliates and Associated Physician Practices is amultiple site organization consisting of ambulatory clinics and hospital sitesin [place], [place], [place] and [place]. This disclosure is being madepursuant to the Care Everywhere program and may not contain all information available regarding this patient. Last updated 18.[facility] Allergies Active Allergy Reactions Criticality Noted Date Comments Hydrocodone-Acetaminophen Rash 03/26/2008 Vicodin Barnett Itching Low 04/06/2016 Medications * Be aware [...] right ear 11/19/2018 12/03/2018 Hypertensive emergency 04/12/201511/26 Encounters Date Type Department Care Team Description 07/24/2024 1:30 PM CLIENT TECHNOLOGIES SPECIALIST Office Visit [facility] - Internal Med [address] [place] [phone] Tami Comer DO Pre-op evaluation (Primary Dx) 07/24/2024 Travel 07/21/2024 Telephone [facility] - Internal Med [address] [place] [phone] Neil Velasquez MD Forms (/) 07/21/2024 Travel 07/03/2024 4:30 PM CLIENT TECHNOLOGIES SPECIALIST - 07/03/2024 11:59 PM CLIENT TECHNOLOGIES SPECIALIST Hospital Encounter [facility] [address] [place] [address] Discharge Disposition: Home or Self Care 07/03/2024 3:30 PM CLIENT TECHNOLOGIES SPECIALIST Office Visit [facility] - Internal Med [address] [place] [phone] Tami Comer DO Resistant hypertension (Primary Dx); Cramps of lower extremity 07/03/2024 Travel 05/08/2024 1:30 PM CDT Office Visit [facility] - Internal Med [address] [place] [phone] Wound of left lower extremity, initial encounter (Primary Dx); Chronic left-sided low back pain with left-sided sciatica 05/08/2024 Travel 05/07/2024 Travel 05/06/2024 9:25 AM CDT - 05/06/2024 11:59 PM CDT Hospital Encounter [facility] [address] [place] [address] Discharge Disposition: Home or Self Care 05/06/2024 Travel from Last 3 Months Immunizations Name Administration Dates Next Due Covid Pfizer primary monoval ent 12+ yr 0.3mL Purple cap 08/10/2021,12/23/2020,11/24/2020 FLU, HISTORIC VACCINE 08/13/2017 HEP B, HISTORIC VACCINE 1965,1965, INFLUENZA 08/13/2017 TDAP (7yrs+) 11/19/2018 Zoster Hzv Vacc Recombinant Inj Im 07/11/2023 Family History Medical History Relation Name Comments Cancer Father Cancer Maternal Grandfather Diabetes Maternal Grandmother Cancer - Other Mother Diabetes Mother Diabetes Paternal Grandmother Cancer - Breast Sister Hypertension Sister Relation Name Status Comments Father Maternal Grandfather Maternal Grandmother Mother Paternal Grandmother Sister Social History Tobacco Use Types Packs/Day Years [...] Comments Blood Pressure 138/80 07/24/2024 1:27 PM CLIENT TECHNOLOGIES SPECIALIST Pulse 72 07/24/2024 1:27 PM CLIENT TECHNOLOGIES SPECIALIST Temperature 36.8 ??C (98.2 ??F) 05/08/2024 1:27 PM CD T Respiratory Rate 18 07/24/2024 1:27 PM CLIENT TECHNOLOGIES SPECIALIST Oxygen Saturation 97% 07/24/2024 1:27 PM CLIENT TECHNOLOGIES SPECIALIST Inhaled Oxygen Concentration - - Weight 121.3 kg (267 lb 6.4 oz) 07/24/2024 1:27 PM CLIENT TECHNOLOGIES SPECIALIST Height 167.6 cm (5' 6 ) 07/24/2024 1:27 PM CLIENT TECHNOLOGIES SPECIALIST Body Mass Index 43.16 07/24/2024 1:27 PM CLIENT TECHNOLOGIES SPECIALIST Plan of Treatment Upcoming Encounters Date Type Department Care Team (Late st Contact Info) Description 12/15/2024 1:00 PM CDT Office Visit [facility] - Internal Med [address] [place] [address], [place] [address] Neil Velasquez MD [address] [place] [address] Health Maintenance Due Date Last Done Comments BONE DENSITY TESTING 1965 COLOGUARD (AGES 45-75) - COLON CA SCREENING 1965 CT COLONOGRAPHY - COLON CA SCREENING 1965 FIT - COLON CA SCREENING 1965 FLEX SIG - COLON CA SCREENING 1965 PNEUMOCOCCAL VACCINE (1 of 2 - PCV) 1971 PAP SMEAR 02/17/2023 02/18/2020 (Done Outside Per Patient) ZOSTER VACCINE (2 of 2) 09/05/2023 07/11/2023 COVID-19 VACCINE ( - season) 2024 08/10/2021, 12/23/2020, 11/24/2020 INFLUENZA VACCINE (#1) 2024 08/13/2017, 2017 DIABETES-HGB A1C 11/03/2024 05/06/2024, 09/2022, 11/22/2022, Additional history exists DIABETES RETINOPATHY SCREENING 02/21/2025 02/21/2023 (Done Outside Per Patient), 06/03/2019, 05/01/2017 (Done Outside Per Report) MAMMOGRAM 03/13/2025 12/28/2022, 09/13 (Done Outside Per Report), 06/03/2019, Additional history exists Postponed from 12/29/2023 (Scheduled) DIABETES-FOOT EXAM WITH MONOFILAMENT 03/31/2025 03/31/2024, 11/22/2022, 11/16/2021, Additional history exists DIABETES-NEPHROPATHY 05/06/2025 05/06/2024, 03/14/2023, 01/13/2021, Additional history exists DIABETES-SERUM CREATININE 07/03/20252023, 05/06/2024, 07/18/2023, Additional history exists DTAP/TDAP/TD VACCINES (2 - Td or Tdap) 11/19/2028 11/19/2018 COLON MONITORING 12/08/2030 12/08/2020, 12/08/2020 COLONOSCOPY - COLON CA SCREENING 12/08/2030 12/08/2020, 12/08/2020, 04/06/2016 (Done Outside Per Report) Colorectal Cancer Screening 12/08/2030 HEPATITIS B VACCINE Completed 1965, 1965, 1965 HEPATITIS C SCREENING Completed 09/04/2014 DEPRESSION SCREENING Completed 10/24/2023, 11/22/2022, 11/16/2021 HIB VACCINE Aged Out No longer eligi ble based on patient's age to complete this topic HIV SCREENING Discontinued HPV VACCINE Aged Out No longer eligi ble based on patient's age to complete this topic MENINGOCOCCAL VACCINE Aged Out No juan francisco abdoulaye eligible based on patient's age to complete this topic Procedures Procedure Name Priority Date/Time Associated Diagnosis Comments BASIC METABOLIC PANEL (CALCIUM TOTAL) Routine 07/03/2024 4:40 PM CLIENT TECHNOLOGIES SPECIALIST Cramps of lower extremity MAGNESIUM BLOOD Routine 07/03/2024 4:40 PM CLIENT TECHNOLOGIES SPECIALIST Cramps of lower extremity MICROALB/CREAT RATIO URINE [...] HEPATITIS C ANTIBODY Routine 09/04/2014 9:30 AM CLIENT TECHNOLOGIES SPECIALIST from Last 3 Months or Most Recently Relevant to Health Maintenance Results * (ABNORMAL) BASIC METABOLIC PANEL (CALCIUM TOTAL) (07/03/2024 4:40 PM CLIENT TECHNOLOGIES SPECIALIST) Only the most recent of2 resultswithin the time period is included. BUN 33(H) 7 - 26 mg/dL 07/03/2024 5:24 PM [facility] Creatinine 1.32(H) 0.56 - 0.96 mg/dL 07/03/2024 5:24 PM [facility] Sodium 141 136 - 145 mmol/L 07/03/2024 5:24 PM [facility] Potassium 4.0 3.5 - 4.5 mmol/L 07/03/2024 5:24 PM [facility] Chloride 110(H) 98 - 107 mmol/L 07/03/2024 5:24 PM [facility] CO2 25 22 - 29 mmol/L 07/03/2024 5:24 PM [facility] Glucose 106(H) 70 - 99 mg/dL 07/03/2024 5:24 PM [facility] Calcium 9.2 8.4 - 10.2 mg/dL 07/03/2024 5:24 PM [facility] Anion Gap 6 6 - 16 07/03/2024 5:24 PM [facility] BUN/Creatinine Ratio 25(H) 7 - 23 07/03/2024 5:24 PM [facility] Osmolality Calculated 300(H) 275 - 295 mOsm/kg 07/03/2024 5:24 PM [facility] eGFR by CKD-EPI 47(L) >=90 mL/min/1.7 3 m2 07/03/2024 5:24 PM [facility] Blood BLOOD SPECIMEN / Unknown Lab Venipuncture / Unknown 07/03/2024 4:40 PM CLIENT TECHNOLOGIES SPECIALIST 07/03/2024 4:59 PM CLIENT TECHNOLOGIES SPECIALIST Yoanna Francis MD LAB - CHEMISTRY ORD ERABLES [address] [address], [facility] [phone] * MAGNESIUM BLOOD (07/03/2024 4:40 PM CLIENT TECHNOLOGIES SPECIALIST) [facility] Magnesium 1.9 1.6 - 2.6 mg/dL 07/03/2024 5:24 PM CLIENT TECHNOLOGIES SPECIALIST [facility] Blood BLOOD SPECIMEN / Unknown Lab Venipuncture / Unknown 07/03/2024 4:40 PM CLIENT TECHNOLOGIES SPECIALIST 07/03/2024 4:59 PM CLIENT TECHNOLOGIES SPECIALIST Yoanna Farncis MD LAB - CHEMISTRY ORD ERABLES Performing Organization Address [facility]/ZIP Co de Phone Number [address] [address], [facility] [phone] * MICROALB/CREAT RATIO URINE RANDOM PANEL (05/06/2024 9:56 AM CDT) [facility] Albumin Random Urine 34.2 Not Established ug/mL 05/06/2024 11:11 AM T [facility] Creatinine Urine 206.98 Not Established mg/dL 05/06/2024 11:11 AM T [facility] Urine Albumin/Creati nine Ratio 17 <30 mg/g 05/06/2024 11:11 AM T [facility] Urine URINE SPECIMEN OBTAINED BY CLEAN CATCH PROCEDURE / Unknown Collection / Unknown 05/06/2024 9:56 AM CDT 05/06/2024 10:20 AM CDT Ronald Casarez MD LAB - URINE CHEMISTR Y ORDERABLES Performing Organization Address City/[facility]/ZIP Co de Phone Number [address] [address], [place] [phone] * (ABNORMAL) HEMOGLOBIN A1C (05/06/2024 9:50 AM CDT) [facility] Hemoglobin A1c 6.4(H) <=5.6 % 05/06/2024 11:39 AM [facility] Estimated Average Glucose 137 mg/dL 05/06/2024 11:39 AM [facility] Comment: HbA1c Interpretation: Normal : < 5.7% Pre-diabetes: 5.7-6.4% Diabetes: Equal to or greater than 6.5% Test results diagnostic of diabetes should be repeated for confirmation. Treatment target values recommended by ADA and other clinical organizations should be used to evaluate metabolic control in patients. Reference: [place] [employer], Standards of Care in Diabetes [...] CDT Ronald Casarez MD [facility] Organization Address City/State/ZIP Co de Phone Number [facility] [address] [place] [address], [facility] [phone] * CBC W/O DIFFERENTIAL (05/06/2024 9:50 AM CDT) WBC 6.8 4.0 - 10.7 x10E9/L 05/06/2024 10:27 AM [facility] RBC Count 4.89 3.90 - 5.20 x10E12/L 05/06/2024 10:27 AM [facility] Hemoglobin 13.2 11.9 - 15.8 g/dL 05/06/2024 10:27 AM [facility] Hematocrit 40.9 34.8 - 46.1 % 05/06/2024 10:27 AM [facility] MCV 83.6 80.0 - 98.0 fL 05/06/2024 10:27 AM [facility] MCH 27.0 26.7 - 33.6 pg 05/06/2024 10:27 AM [facility] MCHC 32.3 31.7 - 36.3 g/dL 05/06/2024 10:27 AM CDT [facility] RDW-CV 13.0 11.3 - 14.8 % 05/06/2024 10:27 AM CDT [facility] Platelet Count 238 150 - 420 x10E9/L 05/06/2024 10:27 AM CDT [facility] MPV 11.0 7.8 - 11.4 fL 05/06/2024 10:27 AM CDT [facility] Blood BLOOD SPECIMEN / Unknown Lab Venipuncture / Unknown 05/06/2024 9:50 AM CDT 05/06/2024 10:22 AM CDT Ronald Casarez MD LAB - HEMATOLOGY ORD ERABLES [address] [address], [place] [phone] * IRON BLOOD (05/06/2024 9:50 AM CDT) Iron 62 40 - 150 ug/dL 05/06/2024 10:55 AM CDT [facility] Blood BLOOD SPECIMEN / Unknown Lab Venipuncture / Unknown 05/06/2024 9:50 AM CDT 05/06/2024 10:20 AM CDT Ronald Casarez MD LAB - CHEMISTRY ORDE RABLES [address] [address], [place] [phone] * MAMMO BILAT SCREENING W JAY (12/28/2022 [...] NEGATIVE. > Dictated by Genny Umana DO (assistant vice president). I, Annita Mei MD have personally reviewed and interpreted this examination/study. > Interpreting Provider: Annita Mei MD on 12/28/2022 10:31 AM Narrative 12/28/2022 10:31 AM CDT EXAMINATION: DIGITAL MAMMO BILAT SCREENING W JAY AND WITH CAD LOCATION: [facility] DATE: ??12/28/2022 HISTORY: ??Screening. History of breast [...] or _ Providers: ?Sara Ramsey MD Referring : ? [facility] Internal Medicine Clinic Procedure: ?Colonoscopy Indications: ?Screening [...] Residual hemorrhoidal skin tags CPT copyright 2019 [employer]. All rights reserved. The codes documented in this report are preliminary and upon pedodontist review may be revised to meet current compliance requirements. Sara Ramsey MD 12/08/2020 4:01:43 PM Note Initiated On: 12/08/2020 2:44 PM Number of Addenda: 0 ? [facility] ? [address] [place] [address] [employer] 12/08/2020 2:44 PM CDT Sara Haddad MD GI PROCEDURE [place] [facility] [employer] * EYE EXAM (06/03/2019 6:27 AM CDT) Anatomical Region Laterality Modality Other Narrative 06/03/2019 6:27 AM CDT Ordered by an unspecified provider. Scanned Document SCANNING ONLY * HEPATITIS C ANTIBODY (09/04/2014 9:30 AM CLIENT TECHNOLOGIES SPECIALIST) Hepatitis C Antibody NON-REACTI VE NON-REACT [facility]) Signal/Cutoff 0.03 <1.00 [facility]) Comment: REPORT COMMENT: FASTING:YES Test Performed at: [facility] [id number] [place], [place] ??[address] KATHY PEREZ DO,MPH Blood specimen (specimen) BLOOD SPECIMEN / Unknown 09/04/2014 9:30 AM CLIENT TECHNOLOGIES SPECIALIST 09/04/2014 9:31 AM CLIENT TECHNOLOGIES SPECIALIST Farheen Lafleur MD LAB - CHEMISTRY [place] [facility]) from Last 3 Months or Most Recently Relevant to Health Maintenance Care Teams Brake Operator Heavy Duty Relationship Specialty Start Date End Date Neil Velasquez MD [address] [place] [address] PCP - General Internal Medicine 10/24/23
--- OUTSIDE RECORDS SUMMARY | 2024-08-02 09:58 | XMS_ITS | Encounter Summary ---
Author Organization [facility] Health Address [address] [facility] [place] [address] Care Team Providers Care Repairer General Name Role Phone Neil Velasquez MD Primary Care Provider [phone] Reason for Visit * Reason Comments Hypertension Follow-up Encounter Details Date Type Department Care Team (Late st Contact Info) Description 07/03/2024 3:30 PM MIXING AND MOLDING MACHINE OPERATOR Office Visit [facility] - Internal Med [address] [facility] [place] [phone] Tami Comer, DO [address] [facility] [place] [address] Resistant hypertension (Primary Dx); Cramps of lower extremity Social History Tobacco Use Types Packs/Day Years [...] Sign Reading Time Taken Comments Blood Pressure 148/82 07/03/2024 3:46 PM MIXING AND MOLDING MACHINE OPERATOR Pulse 66 07/03/2024 3:46 PM MIXING AND MOLDING MACHINE OPERATOR Temperature - - Respiratory Rate 16 07/03/2024 3:46 PM MIXING AND MOLDING MACHINE OPERATOR Oxygen Saturation 95% 07/03/2024 3:46 PM MIXING AND MOLDING MACHINE OPERATOR Inhaled Oxygen Concentration - - Weight 121.2 kg (267 lb 3.2 oz) 07/03/2024 3:46 PM MIXING AND MOLDING MACHINE OPERATOR Height 167.6 cm (5' 6 ) 07/03/2024 3:46 PM MIXING AND MOLDING MACHINE OPERATOR Body Mass Index 43.13 07/03/2024 3:46 PM MIXING AND MOLDING MACHINE OPERATOR documented in this encounter Patient Instructions * Patient Instructions* Hedy Zhang MA - 07/03/2024 3:46 PM MIXING AND MOLDING MACHINE OPERATOR [facility] is a Patient Centered Medical Home (PCMH) recognized practice. PCMH is a model of care that puts patients at the forefront of care. PCM centers build better relationships between patients and their clinical care teams. Practices that earn this recognition have made a commitment to continuous quality improvement and a patient-centered approach to care. [facility] is committed to providing you [...] for your doctor, the office phone is [phone]. You will be given options to get [...] primary care provider. Please call us at [phone], option 1, then option 1 in the morning you would like to be seen. Our fax number is [phone]. Instructions for reaching the practice after office hours For urgent concerns that cannot wait until phone lines are open on the next business day, please call [phone] to speak to the covering General Internal Medicine provider. Identify yourself as a patient in our practice and give the larry car operator your doctor's name. The larry car operator will contact the physician diamond cleaner. You can generally expect a return call within 30 minutes. Prescription Refills Contact your pharmacy to request all refills. You may also send a [employer] message for refills. Please allow a minimum of 48-72 hours for your prescription to be completed. Your pharmacy will notify you when your prescription is ready to be picked up. SCHEDULE YOUR OWN APPOINTMENT AT [facility] We are excited to announce that some [facility] appointments can now be scheduled online. If you are not able to access the type of appointment that you need using this service, our [facility] Scheduling department will be happy to continue to serve you. Use one of these options to schedule your next appointment today: Access self-scheduling options by visiting the [facility] Online Scheduling Webpage. Make an appointment by calling [facility] Central [phone] Visit our website at [email or web address] for information about our practice and an interactive health encyclopedia. NG AND MOLDING MACHINE OPERATOR documented in this encounter Progress Notes * Tami Comer DO - 07/03/2024 3:48 PM CST [facility] General Internal Medicine Established Patient Note CC: Chief Complaint Patient presents with Hypertension Follow-up Assessment & Plan: Mauricio Flores is a 59 year old female presenting to [facility] clinic for HTN. Resistant hypertension - BP much better controlled at this visit. BP 148/82 today. - reports being adherent to her medication regimen - given that her BP is much better controlled, will hold on sending her back to nephrology - continue hydralazine 100 mg TID, Lisinopril-HCTZ 20-25 mg, carvedilol 25 mg - should follow up with Dr. Velasquez in 3 months to continue with BP control Cramps of lower extremity - has nocturnal cramps that have been worsening recently; drinks Gatorade daily - MAGNESIUM BLOOD; Future - BASIC METABOLIC PANEL (CALCIUM TOTAL); Future Patient discussed with attending physician, Dr. Francis, who agrees with my assessment and plan. Return in about 3 months (around 10/03/2024) for HTN. With Dr. Velasquez History of Present Illness: Mauricio Flores is a 59 year old female presenting to [facility] clinic for HTN. She was last seen in March. She reports feeling well today. States she does not regularly check her BP but when she does her SBP is usually in the ~150s. States being adherent to her medication regimen. She has nothad follow up with nephrology yet for resistant HTN. Reports continuing to have issues with bilateral nocturnal leg cramping. Cramps will wait her up atnight. She tries to do stretching prior to bed. She also drinks a Gatorade every day to help with the cramps. She is scheduled to have knee surgery next month. Denies needing any additional labs at this time. Past Medical/Surgical/Family/Social History: Reviewed and updated in [facility] History tab Medications: Reviewed and updated in [facility] Medications tab Current Outpatient Medications Medication Sig Dispense Refill Ascorbic Acid (ALPHONSE-C PO) aspirin (ASPIRIN) 81 MG tablet 100 tablet atorvastatin (Lipitor) 40 MG tablet Take 1 (one) tablet by mouth once daily 100 tablet 4 carvedilol (Coreg) 25 MG tablet TAKE 1 TABLET BY MOUTH TWICE A DAY WITH MORNING AND EVENING MEAL 180 tablet 2 Glucose Blood (BLOOD GLUCOSE TEST STRIPS) STRP Use 1 strip TID. (Patient not taking: Reported on 07/03/2024) 100 strip 11 hydrALAZINE (Apresoline) 100 MG tablet Take 1 (one) tablet by mouth 3 times daily 270 tablet 3 isosorbide mononitrate CR 24hr (Imdur) 30 MG tablet Take 1 (one) tablet by mouth once daily 90 tablet 4 LANCETS SUPER THIN 28G MISC Use TID. 100 11 lisinopril-hydroCHLOROthiazide (Prinzide; Zestoretic) 20-25 MG tablet Take 1 (one) tablet by mouth once daily 90 tablet 3 tobramycin-dexAMETHasone (Tobradex) 0.3-0.1 % ophthalmic suspension (Patient not taking: Reported on 07/03/2024) VITAMIN D PO (Patient not taking: Reported on 05/08/2024) No current facility-administered medications for this visit. Allergies: Reviewed and updated in [facility] Allergies tab Review of Systems: Review of Systems Constitutional: Negative. HENT: Negative. Eyes: Negative. Respiratory: Negative. Cardiovascular: Negative. Gastrointestinal: Negative. Genitourinary: Negative. Skin: Negative. Neurological: Negative. Endo/Heme/Allergies: Negative. Psychiatric/Behavioral: Negative. Physical Exam: BP 148/82 Pulse 66 Resp 16 Ht 1.676 m (5' 6 ) Wt 121.2 kg (267 lb 3.2 oz) SpO2 95% Physical Exam Constitutional: Appearance: Normal appearance. Eyes: Conjunctiva/sclera: Conjunctivae normal. Pupils: Pupils are equal, round, and reactive to light. Cardiovascular: Rate and Rhythm: Normal rate and regular rhythm. Pulses: Normal pulses. Heart sounds: Normal heart sounds. Pulmonary: Effort: Pulmonary effort is normal. Breath sounds: Normal breath sounds. Abdominal: General: Bowel sounds are normal. Palpations: Abdomen is soft. Skin: General: Skin is warm and dry. Neurological: Mental Status: She is alert and oriented to person, place, and time. Psychiatric: Mood and Affect: Mood normal. Behavior: Behavior normal. Labs: Personally reviewed. Imaging/Other diagnostic testing: Personally reviewed. Lab Preference: [facility] [address] [facility] [address] Tami Comer DO 07/03/2024 Billing Guide NG AND MOLDING MACHINE OPERATOR Associated attestation - Yoanna Francis MD - 07/13/2024 11:17 PM MIXING AND MOLDING MACHINE OPERATOR Attending Physician Attestation I saw and examined the patient with the resident, and I agree with the resident's history, physicalexam, and assessment and plan. I confirm that I have [...] listed above for patient. Date of Service: 07/03/2024 Yoanna Francis MD documented in this encounter Plan of Treatment Upcoming Encounters Date Type Department Care Team (Late st Contact Info) Description 12/15/2024 1:00 PM CDT Office Visit [facility] - Internal Med [address] [facility] [place] [address] Neil Velasquez MD [address] [facility] [place] [address] documented as of this encounter Results * (ABNORMAL) BASIC METABOLIC PANEL (CALCIUM TOTAL) (07/03/2024 4:40 PM MIXING AND MOLDING MACHINE OPERATOR) BUN 33(H) 7 - 26 mg/dL 07/03/2024 5:24 PM [facility] Creatinine 1.32(H) 0.56 - 0.96 mg/dL 07/03/2024 5:24 PM [facility] Sodium 141 136 - 145 mmol/L 07/03/2024 5:24 PM [facility] Potassium 4.0 3.5 - 4.5 mmol/L 07/03/2024 5:24 PM [facility] Chloride 110(H) 98 - 107 mmol/L 07/03/2024 5:24 PM [facility] CO2 25 22 - 29 mmol/L 07/03/2024 5:24 PM [facility] Glucose 106(H) 70 - 99 mg/dL 07/03/2024 5:24 PM [facility] Calcium 9.2 8.4 - 10.2 mg/dL 07/03/2024 5:24 PM [facility] Anion Gap 6 6 - 16 07/03/2024 5:24 PM [facility] BUN/Creatinine Ratio 25(H) 7 - 23 07/03/2024 5:24 PM [facility] Osmolality Calculated 300(H) 275 - 295 mOsm/kg 07/03/2024 5:24 PM [facility] eGFR by CKD-EPI 47(L) >=90 mL/min/1.7 3 m2 07/03/2024 5:24 PM [facility] Blood BLOOD SPECIMEN / Unknown Lab Venipuncture / Unknown 07/03/2024 4:40 PM MIXING AND MOLDING MACHINE OPERATOR 07/03/2024 4:59 PM MIXING AND MOLDING MACHINE OPERATOR Yoanna Francis MD LAB - CHEMISTRY ORD ERABLES [facility] [address] [place] [address], [facility] [phone] * MAGNESIUM BLOOD (07/03/2024 4:40 PM MIXING AND MOLDING MACHINE OPERATOR) Magnesium 1.9 1.6 - 2.6 mg/dL 07/03/2024 5:24 PM MIXING AND MOLDING MACHINE OPERATOR [facility] Blood BLOOD SPECIMEN / Unknown Lab Venipuncture / Unknown 07/03/2024 4:40 PM MIXING AND MOLDING MACHINE OPERATOR 07/03/2024 4:59 PM MIXING AND MOLDING MACHINE OPERATOR Yoanna Francis MD LAB - CHEMISTRY ORD ERABLES [facility] [address] [place] [address], [facility] [phone] documented in this encounter Visit Diagnoses Diagnosis Resistant hypertension- Primary Cramps of lower extremity documented in this encounter Care Teams Repairer General Relationship Specialty Start Date End Date Neil Velasquez MD [address] [facility] [place] [address] PCP - General Internal Medicine 10/24/23 documented as of this encounter
--- OUTSIDE RECORDS SUMMARY | 2024-08-02 09:58 | XMS_ITS | Encounter Summary ---
Author Organization [facility] Health Address [address] [facility] [place] [address] Care Team Providers Care Teenage Program Director Name Role Phone Randi Gomes DO Unavailable [phone] Neil Velasquez MD Primary Care Provider Encounter Details Date Type Department Care Team (Latest Contact Info) Description 05/07/2024 Travel Social History Tobacco Use Types Packs/Day Years Used Date Smoking Tobacco: Never Smokeless Tobacco: Never Alcohol Use Standard Drinks/Week Comments Yes 1 (1 standard drink = 0.6 oz pur e alcohol) socially PHQ-2 Answer Date Recorded Patient Health Questionnaire-2 Score 0 03/31/2024 Sex and Gender Information Value Date Recorded Sex Assigned at Not on file Gender Identity Not on file Sexual Orientation Not on file documented as of this encounter Plan of Treatment Upcoming Encounters Date Type Department Care Team (Late st Contact Info) Description 12/15/2024 1:00 PM CDT Office Visit [facility] - Internal Med [address] [facility] [place] [phone] Neil Velasquez MD [address] [facility] [place] [address] documented as of this encounter Visit Diagnoses Not on filedocumented in this encounter Care Teams Teenage Program Director Relationship Specialty Start Date End Date Neil Velasquez MD [address] [place] [address] PCP - General Internal Medicine 10/24/23 Randi Gomes, [address] [place] [address] Resident - PCP Internal Medicine 03/14/23 07/02/24 documented as of this encounter
--- OUTSIDE RECORDS SUMMARY | 2024-08-02 09:58 | XMS_ITS | Encounter Summary ---
Author Organization [facility] Health Address [address] [facility] [place] [address] Care Team Providers Care Data Analysis Assistant Name Role Phone Neil Velasquez MD Primary Care Provider [phone] Encounter Details Date Type Department Care Team (Latest Contact Info) Description 07/03/2024 4:30 PM PROFESSOR OF GENETICS - 07/03/2024 11:59 PM [facility] Hospital Encounter [facility] OP DRAW STATION [address] [place] [phone] Discharge Disposition: Home or Self Care Social History Tobacco Use Types Packs/Day Years [...] on file documented as of this encounter Medications at Time of Discharge Medication Sig Dispensed Refills Start Date End Date Ascorbic Acid (ALPHONSE-C PO) aspirin (ASPIRIN) 81 MG tablet 100 tablet 04/06/2016 atorvastatin (Lipitor) 40 MG tabletIndications:Essentia l hypertension,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 100 strip 11 07/03/2017 hydrALAZINE (Apresoline) 100 MG tabletIndications:Resistan t hypertension Take 1 (one) tablet by mouth 3 times daily 270 tablet 3 10/24/2023 isosorbide mononitrate CR 24hr (Imdur) 30 MG tabletIndications:Resistan t hypertension Take 1 (one) tablet by mouth once daily 90 tablet 4 10/24/2023 LANCETS SUPER THIN 28G MISC Use TID. 100 11 03/13/2017 lisinopril-hydroCHLOROthia zide (Prinzide; Zestoretic) 20-25 MG tabletIndications:Resistan t hypertension Take 1 (one) tablet by mouth once daily 90 tablet 3 10/24/2023 tobramycin-dexAMETHasone (Tobradex) 0.3-0.1 % ophthalmic suspension 09/13/2023 VITAMIN D PO documented as of this encounter Plan of Treatment Upcoming Encounters Date Type Department Care Team (Late st Contact Info) Description 12/15/2024 1:00 PM CDT Office Visit [facility] - Internal Med [address] [facility] [place] [phone] Neil Velasquez MD [address] [facility] [place] [address] documented as of this encounter Procedures Procedure Name Priority Date/Time Associated Diagnosis Comments BASIC METABOLIC PANEL (CALCIUM TOTAL) Routine 07/03/2024 4:40 PM PROFESSOR OF GENETICS Cramps of lower extremity MAGNESIUM BLOOD Routine 07/03/2024 4:40 PM PROFESSOR OF GENETICS Cramps of lower extremity documented in this encounter Results * (ABNORMAL) BASIC METABOLIC PANEL (CALCIUM TOTAL) (07/03/2024 4:40 PM PROFESSOR OF GENETICS) BUN 33(H) 7 - 26 mg/dL 07/03/2024 5:24 PM PROFESSOR OF GENETICS [facility] Creatinine 1.32(H) 0.56 - 0.96 mg/dL 07/03/2024 5:24 PM [facility] Sodium 141 136 - 145 mmol/L 07/03/2024 5:24 PM [facility] Potassium 4.0 3.5 - 4.5 mmol/L 07/03/2024 5:24 PM [facility] Chloride 110(H) 98 - 107 mmol/L 07/03/2024 5:24 PM [facility] CO2 25 22 - 29 mmol/L 07/03/2024 5:24 PM [facility] Glucose 106(H) 70 - 99 mg/dL 07/03/2024 5:24 PM [facility] Calcium 9.2 8.4 - 10.2 mg/dL 07/03/2024 5:24 PM [facility] Anion Gap 6 6 - 16 07/03/2024 5:24 PM [facility] BUN/Creatinine Ratio 25(H) 7 - 23 07/03/2024 5:24 PM [facility] Osmolality Calculated 300(H) 275 - 295 mOsm/kg 07/03/2024 5:24 PM [facility] eGFR by CKD-EPI 47(L) >=90 mL/min/1.7 3 m2 07/03/2024 5:24 PM [facility] Blood BLOOD SPECIMEN / Unknown Lab Venipuncture / Unknown 07/03/2024 4:40 PM PROFESSOR OF GENETICS 07/03/2024 4:59 PM PROFESSOR OF GENETICS Yoanna Francis MD LAB - CHEMISTRY ORD ERABLES Performing Organization Address City/State/[facility] Co de Phone Number [address] [address], [facility] [phone] * MAGNESIUM BLOOD (07/03/2024 4:40 PM PROFESSOR OF GENETICS) Magnesium 1.9 1.6 - 2.6 mg/dL 07/03/2024 5:24 PM [facility] Blood BLOOD SPECIMEN / Unknown Lab Venipuncture / Unknown 07/03/2024 4:40 PM PROFESSOR OF GENETICS 07/03/2024 4:59 PM PROFESSOR OF GENETICS Yoanna Francis MD LAB - CHEMISTRY ORD [facility] [address] [place] [address], [facility] [phone] documented in this encounter Visit Diagnoses Diagnosis Cramps of lower extremity documented in this encounter Care Teams Data Analysis Assistant Relationship Specialty Start Date End Date Neil Velasquez MD [address] [facility] [place] [address] PCP - General Internal Medicine 10/24/23 documented as of this encounter
--- OUTSIDE RECORDS SUMMARY | 2024-08-02 09:58 | XMS_ITS | Encounter Summary ---
Author Organization [facility] Health Address [address] [facility] [place] [address] Care Team Providers Care Mfg Assoc Name Role Phone Randi Gomes DO Unavailable [phone] Neil Velasquez MD Primary Care Provider Encounter Details Date Type Department Care Team (Latest Contact Info) Description 05/08/2024 Travel Social History Tobacco Use Types Packs/Day [...] 12/15/2024 1:00 PM CDT Office Visit [facility] - Internal Med [address] [facility] [place] [phone] Neil Velasquez MD [address] [facility] [place] [address] documented as of this encounter Visit Diagnoses Not on filedocumented in this encounter Care Teams Mfg Assoc Relationship Specialty Start Date End Date Neil Velasquez MD [address] [place] [address] PCP - General Internal Medicine 10/24/23 Randi Gomes, [address] [place] [address] Resident - PCP Internal Medicine 03/14/23 07/02/24 documented as of this encounter
--- OUTSIDE RECORDS SUMMARY | 2024-08-02 09:58 | XMS_ITS | Encounter Summary ---
Author Organization [facility] Health Address [address] [place] [address] Care Team Providers Care Customer Service Engineer Name Role Phone Randi Gomes DO Unavailable [phone] Neil Velasquez MD Primary Care Provider [phone] Reason for Visit * Reason Comments Swelling Leg Sore on left leg ten erika to touch Encounter Details Date Type Department Care Team (Late st Contact Info) Description 05/08/2024 1:30 PM CDT Office Visit [facility] - Internal Med [address] [place] [address] [place] [id number] Wound of left lower extremity, initial encounter (Primary Dx); Chronic left-sided low back pain with left-sided sciatica Social History Tobacco Use Types Packs/Day Years [...] Sign Reading Time Taken Comments Blood Pressure 136/66 05/08/2024 2:02 PM CDT Pulse 64 05/08/2024 1:27 PM CDT Temperature 36.8 ??C (98.2 ??F) 05/08/2024 1:27 PM CD T Respiratory Rate - - Oxygen Saturation 95% 05/08/2024 1:27 PM CDT Inhaled Oxygen Concentration - - Weight 118.3 kg (260 lb 12.8 oz) 05/08/2024 1:27 PM CDT Height 167.6 cm (5' 6 ) 05/08/2024 1:27 PM CDT Body Mass Index 42.09 05/08/2024 1:27 PM CDT documented in this encounter Progress Notes * Whitney Child, CIRCUIT BREAKER MECHANIC-JEWEL SAWYER - 05/08/2024 1:23 PM CDT HPI: Mauricio Flores is a 59 year old female is here for acute care visit. CC: Injured left pretibial area about 3-4 weeks ago. She does not remember what she did to the leg but has a sore that is taking a long time to heal. She has been soaking a towel in H2O2 and leaving it on the wound. She recently had a small amount of redness around wound. Area feels tight . No warmth, fever or chills. Also mentions left buttock pain that she thought was hip barker. Some anterior hip pain intermittently. Buttock pain x 1 yr. She went to doctor in [place] who told her the pain was coming from her back. She does not remember if he got xrays, She does not take anything for pain. 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) Personal history of transient ischemic attack (TIA), and cerebral infarction without residual deficits Family history of ischemic heart disease and other diseases of the circulatory system Essential hypertension Class 3 severe obesity with serious comorbidity and body mass index (BMI) of 45.0 to 49.9 in adult (HCC) Isolated proteinuria Hyperlipidemia Nephropathy Microcytosis Iron deficiency anemia Chronic heart failure with preserved ejection fraction (HCC) Insomnia Resistant hypertension Hypotension due to medication Healthcare maintenance Secondary cataract of right eye Left hip pain Past History and Surgical History Reviewed under History tab -- Hydrocodone-Acetaminophen -- Rash -- Vicodin -- Stephenson -- Itching Current Outpatient Medications: Ascorbic Acid (ALPHONSE-C PO), , Disp: , Rfl: aspirin (ASPIRIN) 81 MG tablet, , Disp: 100 tablet, Rfl: atorvastatin (Lipitor) 40 MG tablet, Take 1 (one) tablet by mouth once daily, Disp: 100 tablet, Rfl: 4 carvedilol (Coreg) 25 MG tablet, TAKE 1 TABLET BY MOUTH TWICE A DAY WITH MORNING AND EVENING MEAL, Disp: 180 tablet, Rfl: 2 Glucose Blood (BLOOD GLUCOSE TEST STRIPS) STRP, Use 1 strip TID., Disp: 100 strip, Rfl: 11 hydrALAZINE (Apresoline) 100 MG tablet, Take 1 (one) tablet by mouth 3 times daily, Disp: 270 tablet, Rfl: 3 isosorbide mononitrate CR 24hr (Imdur) 30 MG tablet, Take 1 (one) tablet by mouth once daily, Disp:90 tablet, Rfl: 4 LANCETS SUPER THIN 28G MISC, Use TID., Disp: 100, Rfl: 11 lisinopril-hydroCHLOROthiazide (Prinzide; Zestoretic) 20-25 MG tablet, Take 1 (one) tablet by mouthonce daily, Disp: 90 tablet, Rfl: 3 tobramycin-dexAMETHasone (Tobradex) 0.3-0.1 % ophthalmic suspension, , Disp: , Rfl: VITAMIN D PO, , Disp: , Rfl: No current facility-administered medications for this visit. Past Medical History: Reviewed; see Epic History tab for details Past Surgical History: Reviewed; see Epic History tab for details Social History: Reviewed; see Epic History tab for details Family History: Reviewed; see Epic History tab for details OBJECTIVE: BP (!) 139/24 Pulse 64 Temp 98.2 ??F (36.8 ??C) (Oral) Ht 1.676 m (5' 6 ) Wt 118.3 kg (260 lb 12.8 oz) SpO2 95% 136/66 recheck. She appears well, in no apparent distress. Alert and oriented times three, pleasant and cooperative. Lungs--clear A&P Cor--S1 S2 RRR no murmurs Abd--soft, non tender, no masses or organomegaly, + BS. Back--no tenderness along spine. Left Hip--pain deep in buttock. No anterior hip pain Ext--no edema. Scab on pretibial wound. Small amount of redness surrounding. -2+ pedal pulses -No evidence of infection. -Picture under media. Recent Labs Component Name 05/06/24 0950 07/18/23 1136 03/14/23 1440 01/20/21 0939 05/05/20 1619 08/21/19 0813 06/04/19 0931 05/30/19 1822 0000 SODIUM - - - 142 - - 141 - - NA 142 140 139 - - - - 142 - POTASSIUM 4.0 3.6 3.8 4.0 - - 4.1 3.5 - CHLORIDE - - - 108 - - 104 - - CO2 25 25 29 27 - - 30 26 - BUN 21 20 17 14 - - 14 11 - CREATININE 1.17* 1.23* 1.08* 0.91 - - 0.99 0.9 - GLUCOSE 118* 135* 118* 108* - - 203* 157* - CALCIUM 9.4 9.5 9.2 9.1 - - 9.3 9.4 - ALT - - 15 19 - - - 21 - ALKPHOS - - 79 76 - - - 122 - AST - - 15 14 - - - 16 - TBIL - - - 0.7 - - - - - TPROT - - - 6.6 - 7.1 - - - EGFR 54* 51* 60* 71 - - 65 >60 - EGFRAFR - - - 82 - - 75 - - ALBUMIN - - - 3.9 - 3.9 - - - - = values in this interval not displayed. Recent Labs Component Name 05/06/24 0950 01/20/21 0939 05/13/20 1232 06/04/19 0931 05/30/19 1822 02/28/19 0843 04/15/15 0420 04/14/15 0445 WBC 6.8 5.3 6.5 - 6.2 - 7.3 7.4 RBC 4.89 4.63 4.81 - 5.34* - 5.05* 4.94 HGB 13.2 12.4 13.0 - 13.4 - 13.1 12.8 HCT 40.9 39.7 40.1 - 43.2 - 40.2 39.1 MCV 83.6 85.7 83.4 - 80.9* - 79.6* 79.1* MCHC 32.3 31.2* 32.4 - 31.0* - 32.6 32.7 PLTCOUNT 238 245 313 - 294 - 332 332 NEUTPCT - - - - 52.1 - 44.3 56.3 NEUTABS - - - - 3.3 - 3.3 4.1 - = values in this interval not displayed. Recent Labs Component Name 05/06/24 0950 03/14/23 1440 11/22/22 0000 10/16/16 1155 04/13/15 1723 HGBA1C 6.4* 6.1* 6.4 - 6.7* EAG 137 128 - - 146 - = values in this interval not displayed. ASSESSMENT/PLAN Left leg wound--stop using H2O2. PICTURE under media -Wash with mild soap and water (she uses Jergins soap) -Apply small amount of Vasoline and band-aid on wound for next 5 days -If any worsening--return -She will have son send pictures through my chart if worsens or concerns. Left hip/buttock pain -recommend she try Tylenol 500 mg q 6 hr prn -OK to use Lineament such as Biofreeze prn -Offered xrays but she does not want to do now. Keep Nov appt prn sooner if worsening wound or pain. Whitney Child ANP documented in this encounter Plan of Treatment Upcoming Encounters Date Type Department Care Team (Late st Contact Info) Description 12/15/2024 1:00 PM CDT Office Visit [facility] - Internal Med [address] [facility] [place] [address] Neil Velasquez MD [facility] [place]?? [place] [address] documented as of this encounter Visit Diagnoses Diagnosis Wound of left lower extremity, initial encounter- Primary Chronic left-sided low back pain with left-sided sciatica documented in this encounter Care Teams Customer Service Engineer Relationship Specialty Start Date End Date Neil Velasquez MD [address] [facility]?? [place] [address] PCP - General Internal Medicine 10/24/23 Randi Gomes DO [address] [place] [address] Resident - PCP Internal Medicine 03/14/23 07/02/24 documented as of this encounter
--- OUTSIDE RECORDS SUMMARY | 2024-08-02 09:58 | XMS_ITS | Encounter Summary ---
Author Organization [facility] Health Address [address] [place] [address] Care Team Providers Care Assembly Repairer Name Role Phone Neil Velasquez MD Primary Care Provider Encounter Details Date Type Department Care Team (Latest Contact Info) Description 07/21/2024 Travel Social History Tobacco Use Types Packs/Day [...] Description 12/15/2024 1:00 PM CDT Office Visit [facility] - Internal Med [address] [place] [address] Neil Velasquez MD [address] [place], [place] [id number] documented as of this encounter Visit Diagnoses Not on filedocumented in this encounter Care Teams Assembly Repairer Relationship Specialty Start Date End Date Neil Velasquez MD [address] [place], [place] [phone] PCP - General Internal Medicine 10/24/23 documented as of this encounter
--- OUTSIDE RECORDS SUMMARY | 2024-08-02 09:58 | XMS_ITS | Encounter Summary ---
Author Organization [facility] Health Address [address] [place] [address] Care Team Providers Care Auto Top Mechanic Name Role Phone Neil Velasquez MD Primary Care Provider Encounter Details Date Type Department Care Team (Latest Contact Info) Description 07/03/2024 Travel Social History Tobacco Use Types Packs/Day [...] 12/15/2024 1:00 PM CDT Office Visit [facility] - Internal Med [address] [place] [address] Neil Velasquez MD [address] [place], [place] [phone] documented as of this encounter Visit Diagnoses Not on filedocumented in this encounter Care Teams Auto Top Mechanic Relationship Specialty Start Date End Date Neil Velasquez MD [address]?? [place], [place] [id number] PCP - General Internal Medicine 10/24/23 documented as of this encounter
--- OUTSIDE RECORDS SUMMARY | 2024-08-02 09:59 | XMS_ITS | Encounter Summary ---
Author Organization [facility] Health Address [address] [facility] [place] [address] Care Team Providers Care Ammunition And Explosives Handler Name Role Phone Randi Gomes DO Unavailable [phone] Randi Gomes DO Primary Care Provider Encounter Details Date Type Department Care Team (Latest Contact Info) Description 07/18/2023 11:18 AM POWER LINE INSTALLER - 07/18/2023 11:59 PM [facility] Hospital Encounter [facility] [address] [place] [phone] Ronald Casarez MD [address] [place] [address] Discharge Disposition: Home or Self Care Social History Tobacco Use Types Packs/Day Years Used Date Smoking Tobacco: Never Smokeless Tobacco: Never Alcohol Use Standard Drinks/Week Comments Yes 1 (1 standard drink = 0.6 oz pur e alcohol) socially PHQ-2 Answer Date Recorded Patient Health Questionnaire-2 Score 0 07/11/2023 Sex and Gender Information Value Date Recorded Sex Assigned at Not on file Gender Identity Not on file Sexual Orientation Not on file documented as of this encounter Medications at Time of Discharge Medication Sig Dispensed Refills Start Date End Date Ascorbic Acid (ALPHONSE-C PO) aspirin (ASPIRIN) 81 MG tablet 100 tablet 04/06/2016 atorvastatin (Lipitor) 40 MG tabletIndications:Essenti al hypertension,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 100 strip 11 07/03/2017 LANCETS SUPER THIN 28G MISC Use TID. 100 11 03/13/2017 VITAMIN D PO carvedilol (Coreg) 25 MG tabletIndications:Essenti al hypertension TAKE 1 TABLET BY MOUTH TWICE A DAY WITH MORNING AND EVENING MEAL 180 tablet 1 06/26/2023 11/10/2023 hydrALAZINE (Apresoline) 100 MG tabletIndications:Essenti al hypertension Take 1 (one) tablet by mouth 3 times daily 270 tablet 1 07/11/2023 08/30/2023 lisinopril-hydroCHLOROthi azide (Prinzide; Zestoretic) 20-12.5 MG tabletIndications:Essenti al hypertension Take 1 (one) tablet by mouth once daily 90 tablet 1 07/11/2023 10/24/2023 NIFEdipine CR 24hr (Adalat CC) 60 MG tablet Take 1 (one) tablet by mouth once daily Take on an empty stomach. 90 tablet 1 07/11/2023 08/30/2023 documented as of this encounter Progress Notes * Ronald Casarez MD - 07/18/2023 1:22 PM CST Please contact the patient with the results and your recommendations/treatment as needed. AR R LINE INSTALLER documented in this encounter Plan of Treatment Upcoming Encounters Date Type Department Care Team (Late st Contact Info) Description 12/15/2024 1:00 PM CDT Office Visit [facility] - Internal Med [address] [facility] [place] [phone] Neil Velasquez MD [address] [facility]?? [place] [address] documented as of this encounter Procedures Procedure Name Priority Date/Time Associated Diagnosis Comments BASIC METABOLIC PANEL (CALCIUM TOTAL) Routine 07/18/2023 11:36 AM POWER LINE INSTALLER Essential hypertension HEPATITIS B SURFACE ANTIBODY Routine 07/18/2023 11:36 AM POWER LINE INSTALLER Need for hepatitis B screening test documented in this encounter Results * HEPATITIS B SURFACE ANTIBODY (07/18/2023 11:36 AM POWER LINE INSTALLER) Pathologist [facility] Hepatitis B Virus Surface Antibody Non-react laury Non-react laury 07/18/2023 1:03 PM [facility] Comment: < 8 mIU/mL Hepatitis B surface Antibody (HBsAb). Nonreactive for HBsAb - individual is considered not immune to Hepatitis B Virus infection. Hepatitis B Surface Antibody Quantitative 0.0 <8.0 mIU/mL 07/18/2023 1:03 PM [facility] Comment: Hepatitis B Surface Antibody Numeric Result Interpretation: ? Nonreactive: ?<8.0 mIU/mL ? Indeterminate: ??8.0 - 12.0 mIU/mL ? Reactive: ?>12.0 mIU/mL ? Blood BLOOD SPECIMEN / Unknown Lab Venipuncture / Unknown 07/18/2023 11:36 AM POWER LINE INSTALLER 07/18/2023 11:58 AM POWER LINE INSTALLER Ronald Casarez MD LAB - CHEMISTRY [facility] Organization Address [facility] de Phone Number [address] [address], [facility] [phone] * (ABNORMAL) BASIC METABOLIC PANEL (CALCIUM TOTAL) (07/18/2023 11:36 AM POWER LINE INSTALLER) Pathologist [facility] BUN 20 7 - 26 mg/dL 07/18/2023 12:39 PM [facility] Creatinine 1.23(H) 0.56 - 0.96 mg/dL 07/18/2023 12:39 PM [facility] Sodium 140 136 - 145 mmol/L 07/18/2023 12:39 PM [facility] Potassium 3.6 3.5 - 4.5 mmol/L 07/18/2023 12:39 PM [facility] Chloride 105 98 - 107 mmol/L 07/18/2023 12:39 PM [facility] CO2 25 22 - 29 mmol/L 07/18/2023 12:39 PM [facility] Glucose 135(H) 70 - 115 mg/dL 07/18/2023 12:39 PM [facility] Calcium 9.5 8.4 - 10.2 mg/dL 07/18/2023 12:39 PM [facility] Anion Gap 10 6 - 16 07/18/2023 12:39 PM [facility] BUN/Creatinine Ratio 16 7 - 23 07/18/2023 12:39 PM [facility] Osmolality Calculated 295 275 - 295 mOsm/kg 07/18/2023 12:39 PM [facility] eGFR by CKD-EPI 51(L) >=90 mL/min/1.7 3 m2 07/18/2023 12:39 PM [facility] Blood BLOOD SPECIMEN / Unknown Lab Venipuncture / Unknown 07/18/2023 11:36 AM POWER LINE INSTALLER 07/18/2023 12:06 PM POWER LINE INSTALLER Ronald Casarez MD LAB - CHEMISTRY [facility] Organization Address City/State/[facility] Co de Phone Number [facility] [address] [place] [address], [place] [phone] documented in this encounter Visit Diagnoses Diagnosis Essential hypertension Need for hepatitis B screening test documented in this encounter Care Teams Ammunition And Explosives Handler Relationship Specialty Start Date End Date Randi Gomes DO [address] [place] [address] PCP - General Internal Medicine 05/21/23 10/23/23 Randi Gomes DO [address] [place] [address] Resident - PCP Internal Medicine 03/14/23 07/02/24 documented as of this encounter
--- OUTSIDE RECORDS SUMMARY | 2024-08-02 09:59 | XMS_ITS | Encounter Summary ---
Author Organization [facility] Health Address [address] [place] [address] Care Team Providers Care Marketing Agent Name Role Phone Randi Gomes DO Unavailable [phone] Randi Gomes DO Primary Care Provider Encounter Details Date Type Department Care Team (Latest Contact Info) Description 09/13/2023 Travel Social History Tobacco Use Types Packs/Day [...] Description 12/15/2024 1:00 PM CDT Office Visit [facility] - Internal Med [address] [facility] [place] [phone] Neil Velasquez MD [address] [facility]?? [place] [address] documented as of this encounter Visit Diagnoses Not on filedocumented in this encounter Care Teams Marketing Agent Relationship Specialty Start Date End Date Randi Gomes DO [address] [place] [address] PCP - General Internal Medicine 05/21/23 10/23/23 Randi Gomes DO [address] [place] [address] Resident - PCP Internal Medicine 03/14/23 07/02/24 documented as of this encounter
--- OUTSIDE RECORDS SUMMARY | 2024-08-02 09:59 | XMS_ITS | Encounter Summary ---
Author Organization [facility] Health Address [address] [facility] [place] [address] Care Team Providers Care Shoulder Pad Molder Name Role Phone Randi Gomes DO Unavailable [phone] Randi Gomes DO Primary Care Provider [phone] Encounter Details Date Type Department Care Team (Latest Contact Info) Description 05/23/2023 Travel Social History Tobacco Use Types Packs/Day Years Used Date Smoking Tobacco: Never Smokeless Tobacco: Never Alcohol Use Standard Drinks/Week Comments Yes 1 (1 standard drink = 0.6 oz pur e alcohol) socially PHQ-2 Answer Date Recorded PHQ2 TOTAL SCORE 0 03/14/2023 Sex and Gender Information Value Date Recorded Sex Assigned at Not on file Gender Identity Not on file Sexual Orientation Not on file documented as of this encounter Plan of Treatment Upcoming Encounters Date Type Department Care Team (Late st Contact Info) Description 12/15/2024 1:00 PM CDT Office Visit [facility] - Internal Med [address] [facility], [place] [phone] Neil Velasquez MD [address] [facility] [place] [address] documented as of this encounter Visit Diagnoses Not on filedocumented in this encounter Care Teams Shoulder Pad Molder Relationship Specialty Start Date End Date Randi Gomes DO [address] [place] [address] PCP - General Internal Medicine 05/21/23 10/23/23 Randi Gomes, DO [address]?? [place] [address] Resident - PCP Internal Medicine 03/14/23 07/02/24 documented as of this encounter
--- OUTSIDE RECORDS SUMMARY | 2024-08-02 09:59 | XMS_ITS | Encounter Summary ---
Author Organization [facility] Health Address [address] [place] [address] Care Team Providers Care Experiential Therapist Name Role Phone Randi Gomes DO Unavailable [phone] Neil Velasquez MD Primary Care Provider Encounter Details Date Type Department Care Team (Latest Contact Info) Description 05/06/2024 Travel Social History Tobacco Use Types Packs/Day [...] Description 12/15/2024 1:00 PM CDT Office Visit [facility] - Internal Med [address] [facility] [place] [phone] Neil Velasquez MD [address] [facility]?? [place] [address] documented as of this encounter Visit Diagnoses Not on filedocumented in this encounter Care Teams Experiential Therapist Relationship Specialty Start Date End Date Neil Velasquez MD [address] [place] [address] PCP - General Internal Medicine 10/24/23 Randi Gomes, [address] [place] [address] Resident - PCP Internal Medicine 03/14/23 07/02/24 documented as of this encounter
--- OUTSIDE RECORDS SUMMARY | 2024-08-02 09:59 | XMS_ITS | Encounter Summary ---
Author Organization [facility] Health Address [address] [facility] [place] [address] Care Team Providers Care Kineseologist Name Role Phone Randi Gomes DO Unavailable [phone] Neil Velasquez MD Primary Care Provider [phone] Reason for Visit * Reason Comments Refill Request Encounter Details Date Type Department Care Team (Late st Contact Info) Description 11/09/2023 Refill [facility] - Internal Med [address] [facility] [place] [phone] Jane Gomesah, DO [address] [facility] [place] [address] Refill Request Social History Tobacco Use Types Packs/Day Years Used Date Smoking Tobacco: Never Smokeless Tobacco: Never Alcohol Use Standard Drinks/Week Comments Yes 1 (1 standard drink = 0.6 oz pur e alcohol) socially PHQ-2 Answer Date Recorded Patient Health Questionnaire-2 Score 0 10/24/2023 Sex and Gender Information Value Date Recorded Sex Assigned at Not on file Gender Identity Not on file Sexual Orientation Not on file documented as of this encounter Miscellaneous Notes * Telephone Encounter - Stacy Snow RN - 11/09/2023 11:26 AM CDT Refill Request Mauricio Flores Recent Visits Date Type Provider Dept 10/24/23 Office Visit Neil Velasquez MD [facility] 05/21/23 Office Visit Suzette John DO [facility] Showing recent visits within past 540 days with a meds authorizing provider and meeting all other requirements Future Appointments No visits were found meeting these conditions. Showing future appointments within next 150 days with a meds authorizing provider and meeting all other requirements Last Refill: 06-26-23 Allergies: Allergies Allergen Reactions ??? Hydrocodone-Acetaminophen Rash Vicodin ??? Sel[place] Itching Pended Medication Order: Requested Prescriptions Pending Prescriptions Disp Refills ??? carvedilol (Coreg) 25 MG tablet [Pharmacy Med Name: CARVEDILOL 25 MG TABLET] 180 tablet 1 Sig: TAKE 1 TABLET BY MOUTH TWICE A DAY WITH MORNING AND EVENING MEAL documented in this encounter Plan of Treatment Upcoming Encounters Date Type Department Care Team (Late st Contact Info) Description 12/15/2024 1:00 PM CDT Office Visit [facility] - Internal Med [address] [place] [address] Neil Velasquez MD [address] [place] [address] documented as of this encounter Visit Diagnoses Diagnosis Essential hypertension- Primary documented in this encounter Care Teams Kineseologist Relationship Specialty Start Date End Date Neil Velasquez MD [address] [place] [address] PCP - General Internal Medicine 10/24/23 Randi Gomes DO [address] [place] [address] Resident - PCP Internal Medicine 03/14/23 07/02/24 documented as of this encounter
--- OUTSIDE RECORDS SUMMARY | 2024-08-02 09:59 | XMS_ITS | Encounter Summary ---
Author Organization [facility] Health Address [address] [place] [address] Care Team Providers Care Labor Employment Associate Name Role Phone Randi Gomes DO Unavailable [phone] Randi Gomes DO Primary Care Provider Reason for Visit * Reason Onset Date Comments Forms 09/17/2023 Encounter Details Date Type Department Care Team (Late st Contact Info) Description 09/17/2023 Telephone [facility] - Internal Med [address] [facility] [place] [phone] Kym Jasmine, CAUSTICISER-MANAGER POOL [address] [facility] [place] [address] Forms Social History Tobacco Use Types Packs/Day Years [...] Telephone Encounter - Stacy Snow RN - 09/18/2023 7:38 AM GREEN CHAIN OPERATOR Images from the original note were not included. Kym Jasmine, CAUSTICISER-MANAGER POOL Stephanie Hernandez, RN 14 hours ago (5:18 PM) CG It was faxed today at [phone]. ?? N CHAIN OPERATOR * Telephone Encounter - Stephanie Hernandez RN - 09/17/2023 1:59 PM CST Patient called in that her Eye Doctor has not yet received her surgical clearance form for her Eye surgery scheduled for 09/18/23. Fax = N CHAIN OPERATOR documented in this encounter Plan of Treatment Upcoming Encounters Date Type Department Care Team (Late st Contact Info) Description 12/15/2024 1:00 PM CDT Office Visit [facility] - Internal Med [address] [facility] [place] [phone] Neil Velasquez MD [address] [place] [address] documented as of this encounter Visit Diagnoses Not on filedocumented in this encounter Care Teams Labor Employment Associate Relationship Specialty Start Date End Date Randi Gomes DO [address] [place] [address] PCP - General Internal Medicine 05/21/23 10/23/23 Randi Gomes DO [address] [place] [address] Resident - PCP Internal Medicine 03/14/23 07/02/24 documented as of this encounter
--- OUTSIDE RECORDS SUMMARY | 2024-08-02 09:59 | XMS_ITS | Encounter Summary ---
Author Organization [facility] Health Address [address] [place] [address] Care Team Providers Care Seating And Mobility Technologist Name Role Phone Randi Gomes DO Unavailable [phone] Randi Gomes DO Primary Care Provider Encounter Details Date Type Department Care Team (Latest Contact Info) Description 05/21/2023 Travel Social History Tobacco Use Types Packs/Day [...] [facility] [address] [facility] [place] [phone] Neil Velasquez MD [address] [facility] [place] [address] documented as of this encounter Visit Diagnoses Not on filedocumented in this encounter Care Teams Seating And Mobility Technologist Relationship Specialty Start Date End Date Randi Gomes DO [address] [place] [address] PCP - General Internal Medicine 05/21/23 10/23/23 Randi Gomes, DO [address] [place] [address] Resident - PCP Internal Medicine 03/14/23 07/02/24 documented as of this encounter
--- OUTSIDE RECORDS SUMMARY | 2024-08-02 09:59 | XMS_ITS | Encounter Summary ---
Author Organization [facility] Health Address [address] [facility] [place] [address] Care Team Providers Care Terrazzo Polisher Name Role Phone Randi Gomes DO Unavailable [phone] Neil Velasquez MD Primary Care Provider Reason for Referral * Evaluate & Treat (Routine) - Closed Specialty Diagnoses / Procedures Referred By Jimmy schaeffer Referred To Contact Ophthalmology Diagnoses Secondary cataract of right eye, unspecified secondary cataract type Ronald Casarez MD [address] [place] [address] [facility] [address] [place] [address] Referral ID Status Reason Start Date Expiration Date V isits Requested Visits Authorized [id number] Closed Specialty Services Required 10/24/2023 10/23/2024 1 1 * Evaluate & Treat (Routine) - Closed Specialty Diagnoses / Procedures Referred By Jimmy schaeffer Referred To Contact Nephrology Diagnoses Resistant hypertension Ronald Casarez MD [address] [place] [address] [facility] 3l [address] [facility] [place] [address] Referral ID Status Reason Start Date Expiration Date V isits Requested Visits Authorized [id number] Closed Specialty Services Required 10/24/2023 10/23/2024 1 1 Reason for Visit * Reason Comments Establish Care Encounter Details Date Type Department Care Team (Latest Contact Info) Description 10/24/2023 3:30 PM CDT Office Visit [facility] - Internal Med [address] [facility] [place] [address] Neil Velasquez MD [address] [facility] 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); Class 3 severe obesity with serious comorbidity and body mass index (BMI) of 45.0 to 49.9 in adult, unspecified obesity type (HCC); Secondary cataract of right eye, unspecified secondary cataract type; Isolated proteinuria with morphologic lesion; Personal history of transient ischemic attack (TIA), and cerebral infarction without residual deficits; Chronic heart failure with preserved ejection fraction (HCC); Pain in right sims Social History Tobacco Use Types Packs/Day Years [...] Sign Reading Time Taken Comments Blood Pressure 176/82 10/24/2023 3:21 PM CDT Pulse 60 10/24/2023 3:21 PM CDT Temperature 36.3 ??C (97.3 ??F) 10/24/2023 3:21 PM CD T Respiratory Rate 18 10/24/2023 3:21 PM CDT Oxygen Saturation 97% 10/24/2023 3:21 PM CDT Inhaled Oxygen Concentration - - Weight 118.8 kg (262 lb) 10/24/2023 3:21 PM CDT Height 167.6 cm (5' 6 ) 10/24/2023 3:21 PM CDT Body Mass Index 42.29 10/24/2023 3:21 PM CDT documented in this encounter Progress Notes * Neil Velasquez MD - 10/24/2023 4:06 PM CDT [facility] General Internal Medicine Established Patient Note CC: Chief Complaint Patient presents with ??? Establish Care Assessment & Plan: 1. Resistant hypertension - lisinopril-hydroCHLOROthiazide (Prinzide; Zestoretic) 20-25 MG tablet; Take 1 (one) tablet by mouth once daily Dispense: 90 tablet; Refill: 3 - hydrALAZINE (Apresoline) 100 MG tablet; Take 1 (one) tablet by mouth 3 times daily Dispense: 270 tablet; Refill: 3 - isosorbide mononitrate CR 24hr (Imdur) 30 MG tablet; Take 1 (one) tablet by mouth once daily Dispense: 90 tablet; Refill: 4 - Ref to Nephrology - [facility]; Future -antihypertensive regimen adjusted today due to elevated SBP current regimen will include hydralazine 100mg TID, imdur 30 Qdaily, lisinopril- hydrochlorothiazie 20-25 Qdaily, carvedilol 25mg 2. Iron deficiency anemia, unspecified iron deficiency anemia type - CBC W/O DIFFERENTIAL; Future - IRON BLOOD; Future 3. 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 Class 3 severe obesity with serious comorbidity and body mass index (BMI) of 45.0 to 49.9 in adult, unspecified obesity type (HCC) -declines GLP1 at this time due, will reassess at next visit, may be ammenable 5. Secondary cataract of right eye, unspecified secondary cataract type Endorses mild worsening/no improvement s/p cataract removal, does not want to follow up with previous provider - Ref to Ophthalmology - [facility]; Future 6. Isolated proteinuria with morphologic lesion -f/u microalbumin/creat ratio -likely 2/2 HTN vs diabetes will place referral to nephrology for resistant HTN 7. Personal history of transient ischemic attack (TIA), and cerebral infarction without residual deficits -continue ASA and statin 8. Chronic heart failure with preserved ejection fraction (HCC) Pericardial cyst on OSH imaging not noted on follow up -requires follow up TTE 08/2024 and if unchanged 5 years after 9. Pain in right sims Likely 2/2 diabetic neuropathy vs iron deficiency anemia Describes a cold sensation though the extremity remains warm/well perfused -hx of NICHOLE will check iron Preventative Care/Health Maintenance: Advanced care planning: n/a Immunizations - COVID19: recieved - Influenza: declines - Tdap: UTD - Pneumococcal: declines - Zoster: deferred - HepB: completed in childhood, patient reports receiving 3 dose series Colorectal cancer screening: due 2025 Lung cancer screening: Cardiovascular prevention:diabetes screening sent Depression screening: negative Female specific preventative care Cervical cancer screening: pap scheduled for 11/08/23 Breast ca screening: due 12/2023 Osteoporosis screening: will think about, declines at this time Patient discussed with attending physician, Dr. Casarez, who agrees with my assessment and plan. Return in about 3 months (around 01/24/2024). History of Present Illness: Mauricio Flores is a 58 year old female presenting to GI clinic for routine followup . Patient has a history of T2DM, obesity, TIA, HTN, iron deficiency anemia, and cataracts. Patient recently underwent R eye cataract excision in 09/2023. She reports that her vision has gotten more blurry since the excision and she does not want to follow up with that physician again. Does not report any visual field disturbances, vision loss, or flashes/floaters. Patient reports adherence to her antihypertensive regimen but has not been taking pressures at home. Presents hypertensive at 176 SBP. Declines hematuria, syncope or visual disturbances. Requests iron studies at next visit due to history and reported coldness without numbness or other defects in her R leg. Denies fevers, chest pain, abdominal pain, falls, hematuria/dysuria, or diarrhea/constipation. Past Medical/Surgical/Family/Social History: Reviewed and updated in [facility] History tab Medications: Reviewed and updated in [facility] Medications tab Current Outpatient Medications Medication Sig Dispense Refill ??? Ascorbic Acid (ALPHONSE-C PO) ??? aspirin (ASPIRIN) 81 MG tablet 100 tablet ??? atorvastatin (Lipitor) 40 MG tablet Take 1 (one) tablet by mouth once daily 100 tablet 4 ??? carvedilol (Coreg) 25 MG tablet TAKE 1 TABLET BY MOUTH TWICE A DAY WITH MORNING AND EVENING MEAL 180 tablet 1 ??? Glucose Blood (BLOOD GLUCOSE TEST STRIPS) STRP Use 1 strip TID. 100 strip 11 ??? hydrALAZINE (Apresoline) 100 MG tablet Take 1 (one) tablet by mouth 3 times daily 270 tablet 3 ??? isosorbide mononitrate CR 24hr (Imdur) 30 MG tablet Take 1 (one) tablet by mouth once daily 90 tablet 4 ??? LANCETS SUPER THIN 28G MISC Use TID. 100 11 ??? lisinopril-hydroCHLOROthiazide (Prinzide; Zestoretic) 20-25 MG tablet Take 1 (one) tablet by mouth once daily 90 tablet 3 ??? tobramycin-dexAMETHasone (Tobradex) 0.3-0.1 % ophthalmic suspension ??? VITAMIN D PO No current facility-administered medications for this visit. Allergies: Reviewed and updated in Epic Allergies tab Review of Systems: Negative unless noted in HPI Physical Exam: BP 176/82 (BP SITE: LEFT ARM, BP POSITION: SITTING, BP Cuff Size: L) Pulse 60 Temp 97.3 ??F (36.3 ??C) (Temporal) Resp 18 Ht 1.676 m (5' 6 ) Wt 118.8 kg (262 lb) SpO2 97% Physical Exam Vitals and nursing note reviewed. Constitutional: Appearance: Normal appearance. HENT: Head: Normocephalic. Eyes: General: No scleral icterus. Extraocular Movements: Extraocular movements intact. Pupils: Pupils are equal, round, and reactive to light. Cardiovascular: Rate and Rhythm: Normal rate and regular rhythm. Pulmonary: Effort: Pulmonary effort is normal. No respiratory distress. Breath sounds: Normal breath sounds. Abdominal: General: Abdomen is flat. There is no distension. Palpations: Abdomen is soft. Tenderness: There is no abdominal tenderness. Musculoskeletal: General: Normal range of motion. Right lower leg: No edema. Left lower leg: No edema. Skin: General: Skin is warm and dry. Comments: Bilateral lower extremities warm/well perfused Neurological: General: No focal deficit present. Mental Status: She is alert and oriented to person, place, and time. Mental status is at baseline. Cranial Nerves: No cranial nerve deficit. Psychiatric: Mood and Affect: Mood normal. Behavior: Behavior normal. Labs: Personally reviewed. Pertinent for: -proteinuria in Mar 2023 -mild elevation in Cr -lipids 03/2023 wnl Imaging/Other diagnostic testing: Personally reviewed. Pertinent for: -echo reviewed without concerning findings Lab Preference: [facility] [address] [facility] [address] Neil Velasquez MD 10/24/2023 Billing Guide Associated attestation - Ronald Casarez MD - 10/25/2023 9:54 AM CDT Attending Physician Attestation I saw and examined the patient with the resident, and I agree with the resident's history, physicalexam, and assessment and plan. Date of Service: 10/24/2023 Ronald Casarez MD documented in this encounter Plan of Treatment Upcoming Encounters Date Type Department Care Team (Late st Contact Info) Description 12/15/2024 1:00 PM CDT Office Visit [facility] - Internal Med [address] [facility] [place] [phone] Neil Velasquez MD [address] [facility] [place] [address] Scheduled Referrals Name Type Priority Associated Diagnoses Order Schedule Ref to Nephrology - [facility] Outpatient Referral Routine Resistant hypertension 1 Occurrences starting 10/24/2023 until 10/23/2024 Ref to Ophthalmology - [facility] Outpatient Referral Routine Secondary cataract of right eye, unspecified secondary cataract type 1 Occurrences starting 10/24/2023 until 10/23/2024 documented as of this encounter Results * MICROALB/CREAT RATIO URINE RANDOM PANEL (05/06/2024 9:56 AM CDT) Albumin Random Urine 34.2 Not Established ug/mL 05/06/2024 11:11 AM CDT [facility] Creatinine Urine 206.98 Not Established mg/dL 05/06/2024 11:11 AM CDT [facility] Urine Albumin/Creati nine Ratio 17 <30 mg/g 05/06/2024 11:11 AM CDT [facility] Urine URINE SPECIMEN OBTAINED BY CLEAN CATCH PROCEDURE / Unknown Collection / Unknown 05/06/2024 9:56 AM CDT 05/06/2024 10:20 AM CDT Ronald Casarez MD LAB - URINE CHEMISTR Y ORDERABLES [facility] [address] [place] [address], [facility] [phone] * IRON BLOOD (05/06/2024 9:50 AM CDT) Iron 62 40 - 150 ug/dL 05/06/2024 10:55 AM CDT [facility] Blood BLOOD SPECIMEN / Unknown Lab Venipuncture / Unknown 05/06/2024 9:50 AM CDT 05/06/2024 10:20 AM CDT Ronald Casarez MD LAB - CHEMISTRY ORDE RABLES [address] [address], [facility] [phone] * (ABNORMAL) HEMOGLOBIN A1C (05/06/2024 9:50 AM CDT) Hemoglobin A1c 6.4(H) <=5.6 % 05/06/2024 11:39 AM CDT [facility] Estimated Average Glucose 137 mg/dL 05/06/2024 11:39 AM CDT [facility] Comment: HbA1c Interpretation: Normal : < 5.7% Pre-diabetes: 5.7-6.4% Diabetes: Equal to or greater than 6.5% Test results diagnostic of diabetes should be repeated for confirmation. Treatment target values recommended by ADA and other clinical organizations should be used to evaluate metabolic control in patients. Reference: [place] Diabetes Association, Standards of Care in Diabetes -2020 In patients 70 years and older consider HbA1c target range of 7.0-7.5% (Reference: Gaines A, et leslie. JAMDA. 2012) The Sebia assay for the measurement of HbA1c is a National Glycohemoglobin Standardization Program (NGSP) certified method. Blood BLOOD SPECIMEN / Unknown Lab Venipuncture / Unknown 05/06/2024 9:50 AM CDT 05/06/2024 10:22 AM CDT Ronald Casarez MD LAB - CHEMISTRY [place] [facility] Organization Address City/State/ZIP Co de Phone Number [facility] [address] [place] [address], [facility] [phone] * CBC W/O DIFFERENTIAL (05/06/2024 9:50 AM CDT) WBC 6.8 4.0 - 10.7 x10E9/L 05/06/2024 10:27 AM [facility] RBC Count 4.89 3.90 - 5.20 x10E12/L 05/06/2024 10:27 AM [facility] Hemoglobin 13.2 11.9 - 15.8 g/dL 05/06/2024 10:27 AM [facility] Hematocrit 40.9 34.8 - 46.1 % 05/06/2024 10:27 AM [facility] MCV 83.6 80.0 - 98.0 fL 05/06/2024 10:27 AM [facility] MCH 27.0 26.7 - 33.6 pg 05/06/2024 10:27 AM [facility] MCHC 32.3 31.7 - 36.3 g/dL 05/06/2024 10:27 AM [facility] RDW-CV 13.0 11.3 - 14.8 % 05/06/2024 10:27 AM [facility] Platelet Count 238 150 - 420 x10E9/L 05/06/2024 10:27 AM [facility] MPV 11.0 7.8 - 11.4 fL 05/06/2024 10:27 AM [facility] Blood BLOOD SPECIMEN / Unknown Lab Venipuncture / Unknown 05/06/2024 9:50 AM CDT 05/06/2024 10:22 AM CDT Ronald Casarez MD LAB - HEMATOLOGY ORD ERABLES [facility] [address] [place] [address], [facility] [phone] * (ABNORMAL) BASIC METABOLIC PANEL (CALCIUM TOTAL) (05/06/2024 9:50 AM CDT) BUN 21 7 - 26 mg/dL 05/06/2024 11:13 AM [facility] Creatinine 1.17(H) 0.56 - 0.96 mg/dL 05/06/2024 11:13 AM [facility] Sodium 142 136 - 145 mmol/L 05/06/2024 11:13 AM [facility] Potassium 4.0 3.5 - 4.5 mmol/L 05/06/2024 11:13 AM [facility] Chloride 110(H) 98 - 107 mmol/L 05/06/2024 11:13 AM [facility] CO2 25 22 - 29 mmol/L 05/06/2024 11:13 AM [facility] Glucose 118(H) 70 - 115 mg/dL 05/06/2024 11:13 AM [facility] Calcium 9.4 8.4 - 10.2 mg/dL 05/06/2024 11:13 AM [facility] Anion Gap 7 6 - 16 05/06/2024 11:13 AM [facility] BUN/Creatinine Ratio 18 7 - 23 05/06/2024 11:13 AM [facility] Osmolality Calculated 298(H) 275 - 295 mOsm/kg 05/06/2024 11:13 AM [facility] eGFR by CKD-EPI 54(L) >=90 mL/min/1.7 3 m2 05/06/2024 11:13 AM [facility] Blood BLOOD SPECIMEN / Unknown Lab Venipuncture / Unknown 05/06/2024 9:50 AM CDT 05/06/2024 10:22 AM CDT Ronald Casarez MD LAB - CHEMISTRY [facility] Organization Address City/State/ZIP Co de Phone Number [facility] [address] [place] [address], [facility] [phone] documented in this encounter Visit Diagnoses Diagnosis Resistant hypertension- Primary Iron deficiency anemia, unspecified iron deficiency anemia type 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) Type II or unspecified type diabetes mellitus with unspecified complication, not stated as uncontrolled Class 3 severe obesity with serious comorbidity and body mass index (BMI) of 45.0 to 49.9 in adult, unspecified obesity type (HCC) Secondary cataract of right eye, unspecified secondary cataract type Isolated proteinuria with morphologic lesion Nephritis and nephropathy, not specified as acute or chronic, with unspecified pathological lesion in kidney Personal history of transient ischemic attack (TIA), and cerebral 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 [place] [address] PCP - General Internal Medicine 10/24/23 Randi Gomes DO [facility] [address] [facility]?? [place] [address] Resident - PCP Internal Medicine 03/14/23 07/02/24 documented as of this encounter
--- OUTSIDE RECORDS SUMMARY | 2024-08-02 09:59 | XMS_ITS | Encounter Summary ---
Author Organization [facility] Health Address [address] [place] [address] Care Team Providers Care Advertising Project Manager Name Role Phone Randi Gomes DO Unavailable [phone] Randi Gomes DO Primary Care Provider Encounter Details Date Type Department Care Team (Latest Contact Info) Description 08/14/2023 Travel Social History Tobacco Use Types Packs/Day [...] [facility] - [facility] Med [address] [facility] [place] [phone] Neil Velasquez MD [address] [facility] [place] [address] documented as of this encounter Visit Diagnoses Not on filedocumented in this encounter Care Teams Advertising Project Manager Relationship Specialty Start Date End Date Randi Gomes DO [address] [place] [address] PCP - General Internal Medicine 05/21/23 10/23/23 Randi Gomes DO [address] [place] [address] Resident - PCP Internal Medicine 03/14/23 07/02/24 documented as of this encounter
--- OUTSIDE RECORDS SUMMARY | 2024-08-02 09:59 | XMS_ITS | Encounter Summary ---
Author Organization [facility] Health Address [address] [place] [address] Care Team Providers Care Sheet Writer Name Role Phone Randi Gomes DO Unavailable [phone] Randi Gomes DO Primary Care Provider [phone] Reason for Visit * Reason Comments Hypertension Encounter Details Date Type Department Care Team (Latest Contact Info) Description 08/30/2023 11:30 AM COATER CARBON PAPER Office Visit [facility] - Internal Med [address] [place] [phone] Essential hypertension (Primary Dx); Diabetic polyneuropathy associated with type 1 diabetes mellitus (HCC); Chronic heart failure with preserved ejection fraction (HCC); Pericardial cyst (HCC) Social History Tobacco Use Types Packs/Day Years [...] Sign Reading Time Taken Comments Blood Pressure 120/70 08/30/2023 12:16 PM COATER CARBON PAPER Pulse 48 08/30/2023 12:16 PM COATER CARBON PAPER Temperature - - Respiratory Rate - - Oxygen Saturation 96% 08/30/2023 11: 27 AM COATER CARBON PAPER Inhaled Oxygen Concentration - - Weight 120.9 kg (266 lb 9.6 oz) 024 11:27 AM COATER CARBON PAPER Height 168.9 cm (5' 6.5 ) 08/30/2023 11 :27 AM COATER CARBON PAPER Body Mass Index 42.39 08/30/2023 11:27 AM COATER CARBON PAPER documented in this encounter Patient Instructions * Patient Instructions* Timothy Leon F - 08/30/2023 11:28 AM COATER CARBON PAPER [facility] Internal Medicine is a Patient Centered Medical Home (PCMH) recognized practice. PCMH is a model of care that puts patients at the forefront of care. PCMH centers build better relationships between patients and their clinical care teams. Practices that earn this recognition have made a commitment to continuous quality improvement and a patient-centered approach to care. [facility] Internal Medicine is committed to providing [...] for your doctor, the office phone is [phone]. You will be given options to get [...] primary care provider. Please call us at [phone], option 1, then option 1 in the morning you would like to be seen. Our fax number is [phone]. Instructions for reaching the practice after office hours For urgent concerns that cannot wait until phone lines are open on the next business day, please call [phone] to speak to the covering General Internal Medicine provider. Identify yourself as a patient in our practice and give the oven operator automatic your doctor's name. The oven operator automatic will contact the physician information systems professor. You can generally expect a return call within 30 minutes. Prescription Refills Contact your pharmacy to request all refills. You may also send a [employer] message for refills. Please allow a minimum of 48-72 hours for your prescription to be completed. Your pharmacy will notify you when your prescription is ready to be picked up. SCHEDULE YOUR OWN APPOINTMENT AT [facility] We are excited to announce that some [facility] appointments can now be scheduled online. If you are not able to access the type of appointment that you need using this service, our [facility] Scheduling department will be happy to continue to serve you. Use one of these options to schedule your next appointment today: Access self-scheduling options by visiting the [facility] Online Scheduling Webpage. Make an appointment by calling [facility] Central [phone] Visit our website at [email or web address] for information about our practice and an interactive health encyclopedia. ER CARBON PAPER documented in this encounter Progress Notes * Whitney Child, DENTURES LAB TECHNICIAN-ABALONE FISHERMAN - 08/30/2023 11:41 AM CST HPI: Mauricio Flores is a 58 year old female is here for acute care visit. CC: Sent to acute care today to review medications and check BP. She was started on Nifedipine 60 mg daily in June but it caused orthostatic dizziness--causing her to use cane. She felt unsafe driving and working ([facility]). She stopped it after 2 weeks. Went to acute care 08/14/23 for BP check. BP 145/73 sitting and 119/72 standing but was asymptomatic. Lisinopril 10 mg daily was added to her Lisinipril/HCTZ 20/12.5 plus her Carvedilol 25 mg BID, Hydralazine 75 mg TID Currently feeling well. No SOB, chest pains or palpitations. No dizziness noted since stopping Nifedipine. Has stopped adding salt but still eats high sodium foods. Patient Active Problem List: Type 2 diabetes mellitus with complications ([facility]) Personal history of transient ischemic attack (TIA), and cerebral infarction without residual deficits Family history of ischemic heart disease and other diseases of the circulatory system Essential hypertension Class 3 severe obesity with serious comorbidity and body mass index (BMI) of 45.0 to 49.9 in adult ([facility]) Isolated proteinuria Hyperlipidemia Nephropathy Pericardial cyst Microcytosis Iron deficiency anemia Chronic heart failure with preserved ejection fraction ([facility]) Insomnia Resistant hypertension Hypotension due to medication Past History and Surgical History Reviewed under History tab -- Hydrocodone-Acetaminophen -- Rash -- Vicodin -- [place] -- Itching Current Outpatient Medications: Ascorbic Acid (ALPHONSE-C PO), , Disp: , Rfl: aspirin (ASPIRIN) 81 MG tablet, , Disp: 100 tablet, Rfl: atorvastatin (Lipitor) 40 MG tablet, Take 1 (one) tablet by mouth once daily (Patient not taking: Reported on 08/14/2023), Disp: 100 tablet, Rfl: 4 carvedilol (Coreg) 25 MG tablet, TAKE 1 TABLET BY MOUTH TWICE A DAY WITH MORNING AND EVENING MEAL, Disp: 180 tablet, Rfl: 1 Glucose Blood (BLOOD GLUCOSE TEST STRIPS) STRP, Use 1 strip TID. (Patient not taking: Reported on 03/14/2023), Disp: 100 strip, Rfl: 11 hydrALAZINE (Apresoline) 100 MG tablet, Take 1 (one) tablet by mouth 3 times daily, Disp: 270 tablet, Rfl: 1 LANCETS SUPER THIN 28G MISC, Use TID. (Patient not taking: Reported on 07/11/2023), Disp: 100, Rfl:11 lisinopril (Prinivil; Zestril) 10 MG tablet, Take 1 (one) tablet by mouth once daily In addition tolisinopril-hydrochlorothiazide 20mg-12.5mg, Disp: 100 tablet, Rfl: 0 lisinopril-hydroCHLOROthiazide (Prinzide; Zestoretic) 20-12.5 MG tablet, Take 1 (one) tablet by mouth once daily (Patient not taking: Reported on 08/30/2023), Disp: 90 tablet, Rfl: 1 NIFEdipine CR 24hr (Adalat CC) 60 MG tablet, Take 1 (one) tablet by mouth once daily Take on an empty stomach. (Patient not taking: Reported on 08/14/2023), Disp: 90 tablet, Rfl: 1 VITAMIN D PO, , Disp: , Rfl: No current facility-administered medications for this visit. Past Medical History: Reviewed; see Epic History tab for details Past Surgical History: Reviewed; see Epic History tab for details Social History: Reviewed; see Epic History tab for details Family History: Reviewed; see Epic History tab for details Review of Systems All other systems reviewed and are negative. OBJECTIVE: BP 178/77 Pulse 45 Ht 1.689 m (5' 6.5 ) Wt 120.9 kg (266 lb 9.6 oz) SpO2 96% 140/70 sitting 120/70 standing. Pulse 48 She appears well, in no apparent distress. Alert and oriented times three, pleasant and cooperative. Lungs--clear A&P Cor--S1 S2 RRR Rate 48 Ext--no edema. Recent Labs Component Name 07/18/23 1136 03/14/23 1440 01/20/21 0939 05/05/20 1619 08/21/19 0813 06/04/19 0931 05/30/19 1822 0000 SODIUM - - 142 - - 141 - - POTASSIUM 3.6 3.8 4.0 - - 4.1 3.5 - CHLORIDE - - 108 - - 104 - - CO2 25 29 27 - - 30 26 - BUN 20 17 14 - - 14 11 - CREATININE 1.23* 1.08* 0.91 - - 0.99 0.9 - GLUCOSE 135* 118* 108* - - 203* 157* - CALCIUM 9.5 9.2 9.1 - - 9.3 9.4 - ALT - 15 19 - - - 21 - ALKPHOS - 79 76 - - - 122 - AST - 15 14 - - - 16 - TBIL - - 0.7 - - - - - TPROT - - 6.6 - 7.1 - - - EGFR 51* 60* 71 - - 65 >60 - EGFRAFR - - 82 - - 75 - - ALBUMIN - - 3.9 - 3.9 - - - - = values in this interval not displayed. Recent Labs Component Name 01/20/21 0939 05/13/20 1232 09/05/19 0826 06/04/19 0931 05/30/19 1822 02/28/19 0843 04/15/15 0420 04/14/15 0445 WBC 5.3 6.5 5.8 - 6.2 - 7.3 7.4 RBC 4.63 4.81 4.98 - 5.34* - 5.05* 4.94 HGB 12.4 13.0 13.0 - 13.4 - 13.1 12.8 HCT 39.7 40.1 42.5 - 43.2 - 40.2 39.1 MCV 85.7 83.4 85.3 - 80.9* - 79.6* 79.1* MCHC 31.2* 32.4 30.6* - 31.0* - 32.6 32.7 PLTCOUNT 245 313 281 - 294 - 332 332 NEUTPCT - - - - 52.1 - 44.3 56.3 NEUTABS - - - - 3.3 - 3.3 4.1 - = values in this interval not displayed. Recent Labs Component Name 03/14/23 1440 11/22/22 0000 11/16/21 1522 10/16/16 1155 04/13/15 1723 HGBA1C 6.1* 6.4 5.7 - 6.7* EAG 128 - - - 146 - = values in this interval not displayed. Wt Readings from Last 3 Encounters: 08/30/23 120.9 kg (266 lb 9.6 oz) 08/30/23 120.7 kg (266 lb 3.2 oz) 08/14/23 118.8 kg (262 lb) ASSESSMENT/PLAN Hypertension--BP under adequate control today with orthostatic drop but she is asymptomatic for orthostatic sx. Continue same BP medications: Carvedilol 25 mg BID Hydralazine 75 mg TID (takes a 50 and 25 mg tab tid) Lisinopril/HCTZ 20/12.5 daily Lisinopril 10 mg daily Reviewed high sodium foods and encouraged to read labels for sodium content. Bradycardia--usually runs pulse rate in 50 range Lower today but asymptomatic. Increase rate to 58 with deep knee bends Follow. Keep scheduled appt with PCP next month prn sooner. 30 minutes spent with patient, medical decision making, & coordination of care. Reviewed previous notes. Whitney Child ANP ER CARBON PAPER documented in this encounter Plan of Treatment Upcoming Encounters Date Type Department Care Team (Late st Contact Info) Description 12/15/2024 1:00 PM CDT Office Visit [facility] - Internal Med [address] [place] [address], [place] [address] Neil Velasquez MD [address] 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 [place] [address] PCP - General Internal Medicine 05/21/23 10/23/23 Randi Gomes DO [address] [place] [address] Resident - PCP Internal Medicine 03/14/23 07/02/24 documented as of this encounter
--- OUTSIDE RECORDS SUMMARY | 2024-08-02 09:59 | XMS_ITS | Encounter Summary ---
Author Organization [facility] Health Address [address] [facility] [place] [address] Care Team Providers Care Filler Blender Name Role Phone Ronald Casarez MD Primary Care Provider Randi Gomes DO Unavailable [phone] Reason for Visit * Reason Comments Med Change Request Encounter Details Date Type Department Care Team (Late st Contact Info) Description 05/15/2023 Refill [facility] - Internal Med [address] [facility], [place] [phone] Randi Gomes, [address] [facility]?? [place] [address] Med Change Request Social History Tobacco Use Types Packs/Day [...] Telephone Encounter - Shelbie Turner LPN - 05/15/2023 9:15 AM CDT Pharmacy requests 90 day supply Refill Request Mauricio Flores Recent Visits Date Type Provider Dept 03/14/23 Office Visit Randi Gomes DO [facility] 2[facility] 11/22/22 Office Visit Rosalee Cano MD [facility] 2l Showing recent visits within past 540 days with a meds authorizing provider and meeting all other requirements Future Appointments No visits were found meeting these conditions. Showing future appointments within next 150 days with a meds authorizing provider and meeting all other requirements Last Refill: 04.20.23 Allergies: Allergies Allergen Reactions ??? Hydrocodone-Acetaminophen Rash Vicodin ??? [place] Itching Pended Medication Order: Requested Prescriptions Pending Prescriptions Disp Refills ??? lisinopril (Prinivil; Zestril) 40 MG tablet [Pharmacy Med Name: LISINOPRIL 40 MG TABLET] 90 tablet 1 Sig: TAKE 1 TABLET BY MOUTH EVERY DAY documented in this encounter Plan of Treatment Upcoming Encounters Date Type Department Care Team (Late st Contact Info) Description 12/15/2024 1:00 PM CDT Office Visit [facility] - Internal Med [address] [place] [address] Neil Velasquez MD [address] [place] [address] documented as of this encounter Visit Diagnoses Diagnosis Essential hypertension documented in this encounter Care Teams Filler Blender Relationship Specialty Start Date End Date Ronald Casarez MD [address] [place] [address] PCP - General Internal Medicine 12/06/22 05/20/23 Randi Gomes DO [address] [place] [address] Resident - PCP Internal Medicine 03/14/23 07/02/24 documented as of this encounter
--- OUTSIDE RECORDS SUMMARY | 2024-08-02 09:59 | XMS_ITS | Encounter Summary ---
Author Organization [facility] Health Address [address] [place] [address] Care Team Providers Care Lube Technician Name Role Phone Randi Gomes DO Unavailable [phone] Neil Velasquez MD Primary Care Provider [phone] Reason for Visit * Reason Comments Med Change Request Encounter Details Date Type Department Care Team (Late st Contact Info) Description 01/09/2024 Refill [facility] - Internal Med [address] [facility], [place] [phone] Mireya Randi, DO [address] [facility] [place] [address] Med Change Request Social History Tobacco Use [...] encounter Miscellaneous Notes * Telephone Encounter - Devon Lazo RN - 01/09/2024 8:54 AM CDT Refill Request Mauricio Flores Recent Visits Date Type Provider Dept 10/24/23 Office Visit Neil Velasquez MD [facility] 05/21/23 Office Visit Suzette John DO [facility] 2[facility] Showing recent visits within past 540 days with a meds authorizing provider and meeting all other requirements Future Appointments No visits were found meeting these conditions. Showing future appointments within next 150 days with a meds authorizing provider and meeting all other requirements Last Refill: 11/10/23 Allergies: Allergies Allergen Reactions Hydrocodone-Acetaminophen Rash Vicodin [place] Itching Pended Medication Order: Requested Prescriptions Pending Prescriptions Disp Refills carvedilol (Coreg) 25 MG tablet [Pharmacy Med Name: CARVEDILOL 25 MG TABLET] 180 tablet 2 Sig: TAKE 1 TABLET BY MOUTH TWICE A DAY WITH MORNING AND EVENING MEAL documented in this encounter Plan of Treatment Upcoming Encounters Date Type Department Care Team (Late st Contact Info) Description 12/15/2024 1:00 PM CDT Office Visit [facility] - Internal Med [address], [place] [address] Neil Velasquez MD [address] [place] [address] documented as of this encounter Visit Diagnoses Diagnosis Essential hypertension documented in this encounter Care Teams Lube Technician Relationship Specialty Start Date End Date Neil Velasquez MD [address] [place] [address] PCP - General Internal Medicine 10/24/23 Randi Gomes DO [address] [place] [address] Resident - PCP Internal Medicine 03/14/23 07/02/24 documented as of this encounter
--- OUTSIDE RECORDS SUMMARY | 2024-08-02 09:59 | XMS_ITS | Encounter Summary ---
Author Organization [facility] Health Address [address] [facility] [place] [address] Care Team Providers Care Notching Press Operator Name Role Phone Randi Gomes DO Unavailable [phone] Neil Velasquez MD Primary Care Provider Encounter Details Date Type Department Care Team (Latest Contact Info) Description 03/05/2024 Travel Social History Tobacco Use Types Packs/Day [...] Description 12/15/2024 1:00 PM CDT Office Visit [facility] - Internal Med [address] [facility], [place] [phone] Neil Velasqeuz MD [address] [facility] [place] [address] documented as of this encounter Visit Diagnoses Not on filedocumented in this encounter Care Teams Notching Press Operator Relationship Specialty Start Date End Date Neil Velasquez MD [address] [place] [address] PCP - General Internal Medicine 10/24/23 Randi Gomes, [address] [place] [address] Resident - PCP Internal Medicine 03/14/23 07/02/24 documented as of this encounter
--- OUTSIDE RECORDS SUMMARY | 2024-08-02 09:59 | XMS_ITS | Encounter Summary ---
Author Organization [facility] Health Address [address] [facility] [place] [address] Care Team Providers Care Heart Doctor Name Role Phone Randi Gomes DO Unavailable [phone] Randi Gomes DO Primary Care Provider [phone] Reason for Visit * Radiology Services (Routine) - Closed Specialty Diagnoses / Procedures Referred By Contac t Referred To Contact Echosonography Diagnoses Pericardial cyst (HCC) Procedures ECHO COMPLETE ECHO COMPLETE PA TTE W/DOPPLER, COMPLETE PA TTE W/O DOPPLER, COMPLETE Randi Gomes, DO [address] [place] [address] [facility] Echo [address] [place] [address] Referral ID Status Reason Start Date Expiration Date Visits Re quested Visits Authorized [id number] Closed 03/14/2023 03/13/2024 1 1 Encounter Details Date Type Department Care Team (Latest Contact Info) Description 09/05/2023 1:00 PM AGRICULTURAL SYSTEMS SPECIALIST - 09/05/2023 11:59 PM AGRICULTURAL SYSTEMS SPECIALIST Hospital Encounter [facility] [address] [place] [phone] Randi Gomes, DO [address] [place] [address] Discharge Disposition: Home or Self Care Social [...] Sign Reading Time Taken Comments Blood Pressure 130/78 09/05/2023 1:49 PM AGRICULTURAL SYSTEMS SPECIALIST Pulse - - Temperature - - Respiratory Rate - - Oxygen Saturation - - Inhaled Oxygen Concentration - - Weight 117.9 kg (260 lb) 09/05/2023 1:49 PM AGRICULTURAL SYSTEMS SPECIALIST Height 167.6 cm (5' 6 ) 09/05/2023 1:49 PM AGRICULTURAL SYSTEMS SPECIALIST Body Mass Index 41.97 09/05/2023 1:49 PM AGRICULTURAL SYSTEMS SPECIALIST documented in this encounter Medications at Time of Discharge Medication Sig Dispensed Refills Start Date End Date Ascorbic Acid (ALPHONSE-C PO) aspirin (ASPIRIN) 81 MG tablet 100 tablet 04/06/2016 atorvastatin (Lipitor) 40 MG tabletIndications:Essent ial hypertension,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 100 strip 11 07/03/2017 LANCETS SUPER THIN 28G MISC Use TID. 100 11 03/13/2017 VITAMIN D PO carvedilol (Coreg) 25 MG tabletIndications:Essent ial hypertension TAKE 1 TABLET BY MOUTH TWICE A DAY WITH MORNING AND EVENING MEAL 180 tablet 1 06/26/2023 11/10/2023 hydrALAZINE (Apresoline) 25 MG tablet Take 1 (one) tablet by mouth 3 times daily 270 tablet 4 08/30/2023 10/24/2023 hydrALAZINE (Apresoline) 50 MG tablet Take 1 (one) tablet by mouth 3 times daily 90 tablet 08/30/2023 10/24/2023 lisinopril (Prinivil; Zestril) 10 MG tabletIndications:Essent ial hypertension Take 1 (one) tablet by mouth once daily In addition to lisinopril-hydroch lorothiazide 20mg-12.5mg 100 tablet 08/14/2023 10/24/2023 lisinopril-hydroCHLOROth iazide (Prinzide; Zestoretic) 20-12.5 MG tabletIndications:Essent ial hypertension Take 1 (one) tablet by mouth once daily 90 tablet 1 07/11/2023 10/24/2023 documented as of this encounter Progress Notes * Paul Razo II, MD - 09/05/2023 3:15 PM CST - Grade II DD, Hyperdynamic EF of 79%, concentric hypertrophy with increased wall thickness and ventricular mass. - Echo findings likely consistent with years of uncontrolled hypertension- blood pressure control and weight loss are going to be important. - [facility]- rare anatomical varian - Increased Pulmonary Arterial pressure-43.0 PCP may consider referral to Pulmonary Hypertension clinic CULTURAL SYSTEMS SPECIALIST documented in this encounter Plan of Treatment Upcoming Encounters Date Type Department Care Team (Late st Contact Info) Description 12/15/2024 1:00 PM CDT Office Visit [facility] - Internal Med [address] [facility] [place] [phone] Neil Velasquez MD [address] [facility] [place] [address] documented as of this encounter Procedures Procedure Name Priority Date/Time Associated Diagnosis Comments ECHO COMPLETE Routine 09/05/2023 1:51 PM AGRICULTURAL SYSTEMS SPECIALIST Pericardial cyst (HCC) documented in this encounter Results * ECHO COMPLETE (09/05/2023 1:51 PM AGRICULTURAL SYSTEMS SPECIALIST) BSA 2.5399570 m2 [facility] CV FUJ I PACS LV [...] PACS MV E/e' lateral 11.446 [facility] CV FUJI PACS TR pk bran 316.6 cm/s [facility] CV FUJ I PACS LVOT pk bran 1.26 m/s [facility] CV F UJI PACS LVOT mn bran 0.79 m/s [facility] CV F UJI PACS LVOT mn grad 3.0 mmHg [facility] CV FUJI PACS LVOT Cardiac Output 4.983 l/min [facility] CV FUJI PACS LVOT Cardiac Index 2.07 l/min/m2 [facility] CV FUJI PACS Qp:Qs 1.34 [facility] CV FUJ I PACS LA size 4.365 2.7 - 3.8 cm [facility] CV FUJI PACS RV-bullard basal diam 4.9 2.5 - 4.1 cm SSM CV FUJI PACS RV-bullard longitudinal diam 8.4 5.9 - 8.3 cm SSM CV FUJI PACS RVIDd 3.5 cm SSM CV FUJ I PACS RVOT diam Doppler 2.952 cm SS M CV FUJI PACS RVOT area Doppler 6.85 8 - 20 cm2 SSM CV FUJI PACS RVOT stroke vol 137.02 cm3 SSM CV FUJI PACS RVOT VTI 20.016 cm SSM CV FUJ I PACS TAPSE 2.726 1.7 cm SSM CV FUJ I PACS RVOT pk bran 0.70 m/s SSM CV F UJI PACS RA area 22.485 cm2 SSM CV FUJ I PACS AV mn grad 4 mmHg SSM CV FU JI PACS AV pk grad 7 mmHg SSM CV FU JI PACS AV mn bran 0.91 m/s SSM CV FUJ I PACS AV pk bran 1.28 m/s [...] Index 52 ml/m2 SSM CV FUJI PACS [id number] 5.405 cm SSM CV FUJ I PACS [id number] 6.033 cm SSM CV FUJ I PACS [...] Laterality Modality Ultrasound Narrative 09/05/2023 2:53 PM AGRICULTURAL SYSTEMS SPECIALIST ?Tricuspid??Valve: Mild regurgitation. The pulmonary artery systolic [...] 05/04/2021. Paul Razo II, MD [facility] documented in this encounter Visit Diagnoses Diagnosis Pericardial cyst (HCC) Other specified congenital anomaly of heart documented in this encounter Care Teams Heart Doctor Relationship Specialty Start Date End Date Randi Gomes DO [address] [place] [address] PCP - General Internal Medicine 05/21/23 10/23/23 Randi Gomes DO [address] [place] [address] Resident - PCP Internal Medicine 03/14/23 07/02/24 documented as of this encounter
--- OUTSIDE RECORDS SUMMARY | 2024-08-02 09:59 | XMS_ITS | Encounter Summary ---
Author Organization [facility] Health Address [address] [place] [address] Care Team Providers Care Infertility Medical Assistant Name Role Phone Ronald Casarez MD Primary Care Provider [phone] Randi Gomes DO Unavailable [phone] Encounter Details Date Type Department Care Team (Latest Contact Info) Description 05/15/2023 Travel Social History Tobacco Use Types Packs/Day [...] Visit [facility] - Internal Med [address] [facility], [place] [phone] Neil Velasquez MD [address] [facility] [place] [address] documented as of this encounter Visit Diagnoses Not on filedocumented in this encounter Care Teams Infertility Medical Assistant Relationship Specialty Start Date End Date Ronald Casarez MD [address] [place] [address] PCP - General Internal Medicine 12/06/22 05/20/23 Radni Gomes DO [address] [facility] [address] [place] [address] Resident - PCP Internal Medicine 03/14/23 07/02/24 documented as of this encounter
--- OUTSIDE RECORDS SUMMARY | 2024-08-02 09:59 | XMS_ITS | Encounter Summary ---
Author Organization [facility] Health Address [address] [place] [address] Care Team Providers Care Cloth Handler Name Role Phone Randi Gomes DO Unavailable [phone] Randi Gomes DO Primary Care Provider [phone] Reason for Referral * Procedure (Routine) - Closed Specialty Diagnoses / Procedures Referred By Jimmy schaeffer Referred To Contact Sleep Center Diagnoses Essential hypertension Mary Broussard DO [address] [facility] [address] [facility] [place] [address] Referral ID Status Reason Start Date Expiration Date V isits Requested Visits Authorized [id number] Closed Specialty Services Required 05/21/2023 05/20/2024 1 1 Reason for Visit * Reason Comments Follow-up HTN Follow Up Encounter Details Date Type Department Care Team (Latest Contact Info) Description 05/21/2023 1:30 PM CDT Office Visit [facility] - [facility] Med [address] [facility] [place] [id number] Suzette John DO [address] [facility] [place] [address] Essential hypertension (Primary Dx); 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); Hyperlipidemia, unspecified hyperlipidemia type; Iron deficiency anemia, unspecified iron deficiency anemia type; Insomnia, unspecified type; Numbness and tingling of left leg Social History Tobacco Use Types Packs/Day Years [...] Sign Reading Time Taken Comments Blood Pressure 165/84 05/21/2023 1:23 PM CDT Pulse 56 05/21/2023 1:23 PM CDT Temperature 36.8 ??C (98.2 ??F) 05/21/2023 1:23 PM CD T Respiratory Rate - - Oxygen Saturation 98% 05/21/2023 1:23 PM CDT Inhaled Oxygen Concentration - - Weight 121.9 kg (268 lb 12.8 oz) 05/21/2023 1:23 PM CDT Height 167.6 cm (5' 6 ) 05/21/2023 1:23 PM CDT Body Mass Index 43.39 05/21/2023 1:23 PM CDT documented in this encounter Patient Instructions * Patient Instructions* Suzette John, - 05/21/2023 1:23 PM CDT Ms. Flores, Please set an alarm to remember to take you blood pressure medications in the evening. It is important that you do not miss any doses of your blood pressure medications. -Keep a log of your blood pressures at home -Please call to schedule your sleep study -Follow up in one month with Dr. Gomes for blood pressure check [facility] is a Patient Centered Medical Home (PCMH) recognized practice. PCMH is a model of care that puts patients at the forefront of care. PCMH centers build better relationships between patients and their clinical care teams. Practices that earn this recognition have made a commitment to continuous quality improvement and a patient-centered approach to care. [facility] is committed to providing [...] for your doctor, the office phone is [phone]. You will be given options to get [...] primary care provider. Please call us at [phone], option 1, then option 1 in the morning you would like to be seen. Our fax number is [phone]. Instructions for reaching the practice after office hours For urgent concerns that cannot wait until phone lines are open on the next business day, please call [phone] to speak to the covering General Internal Medicine provider. Identify yourself as a patient in our practice and give the handle rounder operator your doctor's name. The handle rounder operator will contact the physician inclusion special education teacher. You can generally expect a return call within 30 minutes. Prescription Refills Contact your pharmacy to request all refills. You may also send a Blockboard message for refills. Please allow a minimum of 48-72 hours for your prescription to be completed. Your pharmacy will notify you when your prescription is ready to be picked up. SCHEDULE YOUR OWN APPOINTMENT AT [facility] We are excited to announce that some [facility] appointments can now be scheduled online. If you are not able to access the type of appointment that you need using this service, our [facility] Scheduling department will be happy to continue to serve you. Use one of these options to schedule your next appointment today: Access self-scheduling options by visiting the [facility] Online Scheduling Webpage. Make an appointment by calling [facility] Central [phone] Visit our website at [email or web address] for information about our practice and an interactive health encyclopedia. documented in this encounter Progress Notes * Suzette John DO - 05/21/2023 1:30 PM CDT [facility] General Internal Medicine Established Patient Note CC: Chief Complaint Patient presents with ??? Follow-up HTN Follow Up Assessment & Plan: #Hypertension -seen last month by Dr. Mayra Gomes for HTN management -here for follow up today -current meds:Carvedilol 25 mg and Hydralazine 75 mg TID, Lisinopril 40 mg (increased at last visit) -Patient intermittently misses her evening times doses of her blood pressure medications -has not tolerated amlo or diuretics in the past Plan: -Patient to set alarm on her phone to remind her to take her evening medications around dinner timeto ensure better compliance -Pt will keep blood pressure log -Ordered sleep study, pt now amenable to outpatient sleep study (STOP-BANG ~3 based on HTN, BMI, Age) #Numbness of Left pretibial sims -x3 weeks, isolated area around the sims without hx of trauma, no weakness or back pain -likely 2/2 DMII Plan: -check cbc, iron panel (Hx of Fe Def anemia), folate B12 #Hx of TIA -The 10-year ASCVD risk score (Amy DK, et al., 2019) is: 27.5% Values used to calculate the score: Age: 58 years Sex: Female Is Non- : Yes Diabetic: Yes Tobacco smoker: No Systolic Blood Pressure: 165 mmHg Is BP treated: Yes HDL Cholesterol: 47 mg/dL Total Cholesterol: 170 mg/dL Plan: -Start Atorvastatin 40 mg daily Preventative Care/Health Maintenance: Advanced care planning: deferred Immunizations - COVID19: S/p 3 vaccines, will get booster at pharm - Influenza: Declined today, discussed risk vs. Benefits, pt will think about it and get at pharmacy - Tdap: UTD - Pneumococcal: deferred, declined on prior visits - Zoster: deferred Colorectal cancer screening: due for repeat 2025 HIV, Hep C: deferred Cardiovascular prevention: started statin today Depression screening: Depression: Not at risk (03/14/2023) PHQ-2 ??? PHQ-2 Score: 0 Female specific preventative care: Cervical cancer screening: referred at last visit with Dr. Gomes Breast ca screening: UTD, negative 12/2022 Osteoporosis screening: not indicated Patient discussed with attending physician, Dr. Broussard Return in about 4 weeks (around 06/18/2023) for HTN. History of Present Illness: Mauricio Flores is a 58 year old female presenting to [facility] clinic for routine followup . HTN: patient here for follow up on HTN, Blood pressure better controlled than prior but still elevated at 160s in office here today. She does provide she often misses her blood pressure medications at night. Has not tolerated Almlo or diuretics in the the past. Has been advised to get sleep study, is amenable to sleep study today. Left leg numbness: has had some numbness in her pretibial sims for ~ 3 weeks, No recent trauma or back pain. Has a history of diabetic neuropathy but that is more in her right foot. No associated weakness, numbness or back pain. Past Medical/Surgical/Family/Social History: Reviewed and updated in [facility] History tab Medications: Reviewed and updated in [facility] Medications tab Current Outpatient Medications Medication Sig Dispense Refill ??? Ascorbic Acid (ALPHONSE-C PO) ??? aspirin (ASPIRIN) 81 MG tablet 100 tablet ??? atorvastatin (Lipitor) 40 MG tablet Take 1 (one) tablet by mouth once daily 100 tablet 4 ??? carvedilol (Coreg) 25 MG tablet Take 1 (one) tablet by mouth 2 times daily with morning and evening meal 60 tablet 2 ??? Glucose Blood (BLOOD GLUCOSE TEST STRIPS) STRP Use 1 strip TID. (Patient not taking: Reported on 03/14/2023) 100 strip 11 ??? hydrALAZINE (Apresoline) 25 MG tablet Take 1 (one) tablet by mouth 3 times daily 270 tablet 4 ??? hydrALAZINE (Apresoline) 50 MG tablet Take 1 (one) tablet by mouth 3 times daily 270 tablet 0 ??? LANCETS SUPER THIN 28G MISC Use TID. 100 11 ??? lisinopril (Prinivil; Zestril) 40 MG tablet TAKE 1 TABLET BY MOUTH EVERY DAY 90 tablet 0 ??? VITAMIN D PO No current facility-administered medications for this visit. Allergies: Reviewed and updated in [facility] Allergies tab Review of Systems: Review of Systems Constitutional: Negative for chills and fever. HENT: Negative for hearing loss. Eyes: Negative for blurred vision. Respiratory: Negative for cough. Cardiovascular: Negative for chest pain and palpitations. Gastrointestinal: Negative for abdominal pain. Musculoskeletal: Negative for myalgias. Neurological: Positive for tingling. Psychiatric/Behavioral: Negative for depression. Physical Exam: BP 165/84 Pulse 56 Temp 98.2 ??F (36.8 ??C) (Oral) Ht 1.676 m (5' 6 ) Wt 121.9 kg (268 lb 12.8 oz) SpO2 98% Physical Exam Constitutional: Appearance: She is obese. HENT: Head: Normocephalic and atraumatic. Right Ear: External ear normal. Left Ear: External ear normal. Nose: Nose normal. Mouth/Throat: Mouth: Mucous membranes are moist. Eyes: Conjunctiva/sclera: Conjunctivae normal. Cardiovascular: Rate and Rhythm: Regular rhythm. Bradycardia present. Pulses: Normal pulses. Heart sounds: Normal heart sounds. Pulmonary: Effort: Pulmonary effort is normal. Breath sounds: Normal breath sounds. Abdominal: General: Abdomen is flat. Bowel sounds are normal. Musculoskeletal: Right lower leg: No edema. Left lower leg: No edema. Neurological: General: No focal deficit present. Mental Status: She is alert. Comments: BLE motor strength 5/5, no ulcers on bilateral feet; sensation grossly intact Psychiatric: Mood and Affect: Mood normal. Behavior: Behavior normal. Thought Content: Thought content normal. Judgment: Judgment normal. Labs: Personally reviewed. Pertinent for: Recent Labs Component Name 03/14/23 1440 01/20/21 0939 SODIUM - 142 POTASSIUM 3.8 4.0 CHLORIDE - 108 CO2 29 27 BUN 17 14 CREATININE 1.08* 0.91 CALCIUM 9.2 9.1 ALBUMIN - 3.9 ALT 15 19 AST 15 14 GLUCOSE 118* 108* . Imaging/Other diagnostic testing: Personally reviewed. Pertinent for: Mammogram: negative 12/2022 Lab Preference: [facility] [address] [place] [id number] Suzette John DO 05/21/2023 Billing Guide Associated attestation - Mary Broussard DO - 05/23/2023 2:54 PM CDT Attending Physician Attestation I have seen and discussed the patient and reviewed the resident's note at the time of the visit Adrian agree with history, physical exam, assessment, and plan. In addition: Poor sleep with reported nighttime awakenings. Unsure if snoring and no clear reason for waking, does not have sense of catching breath. In the setting of uncontrolled HTN, will evaluatefor sleep apnea. Having difficulty remembering medications at night, discussed the option of setting alarms for medication. Will continue current regimen and schedule short term follow up in one month. See note by Dr. John for further details. Date of service: 05/21/2023 Mary Broussard DO documented in this encounter Plan of Treatment Upcoming Encounters Date Type Department Care Team (Late st Contact Info) Description 12/15/2024 1:00 PM CDT Office Visit [facility] - Internal Med [address] [facility] [place] [phone] Neil Velasquez MD [address] [facility] [place], [place] [id number] Scheduled Orders Name Type Priority Associated Diagnoses Orde r Schedule CBC WITH DIFFERENTIAL Lab Routine Iron deficiency anemia, unspecified iron deficiency anemia type 1 Occurrences starting 05/21/2023 until 06/14/2024 VITAMIN B12 Lab Routine Iron deficiency anemia, unspecified iron deficiency anemia type Ordered: 05/21/2023 FOLATE Lab Routine Iron deficiency anemia, unspecified iron deficiency anemia type Ordered: 05/21/2023 IRON + TIBC + FERRITIN Lab Routine Iron deficiency anemia, unspecified iron deficiency anemia type Ordered: 05/21/2023 Scheduled Referrals Name Type Priority Associated Diagnoses Orde r Schedule AMB REFERRAL TO SLEEP STUDIES Outpatient Referral Routine Essential hypertension 1 Occurrences starting 05/21/2023 until 05/21/2024 documented as of this encounter Visit Diagnoses Diagnosis Essential hypertension- Primary 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 [place] [address] PCP - General Internal Medicine 05/21/23 10/23/23 Randi Gomes DO [address] [facility] [place] [address] Resident - PCP Internal Medicine 03/14/23 07/02/24 documented as of this encounter
--- OUTSIDE RECORDS SUMMARY | 2024-08-02 09:59 | XMS_ITS | Encounter Summary ---
Author Organization [facility] Health Address [address] [place] [address] Care Team Providers Care Timber Setter Name Role Phone Randi Gomes DO Unavailable [phone] Randi Gomes DO Primary Care Provider Encounter Details Date Type Department Care Team (Latest Contact Info) Description 07/11/2023 Travel Social History Tobacco Use Types Packs/Day [...] [facility] [address] [facility] [place] [phone] Neil Velasquez MD [address] [facility] [place] [address] documented as of this encounter Visit Diagnoses Not on filedocumented in this encounter Care Teams Timber Setter Relationship Specialty Start Date End Date Randi Gomes DO [address] [place] [address] PCP - General Internal Medicine 05/21/23 10/23/23 Randi Gomes DO [address] [place] [address] Resident - PCP Internal Medicine 03/14/23 07/02/24 documented as of this encounter
--- OUTSIDE RECORDS SUMMARY | 2024-08-02 09:59 | XMS_ITS | Encounter Summary ---
Author Organization [facility] Health Address [address] [facility] [place] [address] Care Team Providers Care Bar Staff Name Role Phone Randi Gomes DO Unavailable [phone] Randi Gomes DO Primary Care Provider Encounter Details Date Type Department Care Team (Latest Contact Info) Description 08/30/2023 Travel Social History Tobacco Use Types Packs/Day [...] [facility] [address] [facility], [place] [phone] Neil Velasquez MD [address] [facility]?? [place] [address] documented as of this encounter Visit Diagnoses Not on filedocumented in this encounter Care Teams Bar Staff Relationship Specialty Start Date End Date Randi Gomes DO [address] [place] [address] PCP - General Internal Medicine 05/21/23 10/23/23 Randi Gomes DO [address] [place] [address] Resident - PCP Internal Medicine 03/14/23 07/02/24 documented as of this encounter
--- OUTSIDE RECORDS SUMMARY | 2024-08-02 09:59 | XMS_ITS | Encounter Summary ---
Author Organization [facility] Health Address [address] [facility] [address] Care Team Providers Care Yarn Hauler Name Role Phone Randi Gomes DO Unavailable [phone] Randi Gomes DO Primary Care Provider [phone] Reason for Visit * Reason Onset Date Comments Surgical Followup 09/21/2023 Encounter Details Date Type Department Care Team (Late st Contact Info) Description 09/21/2023 Telephone [facility] - Internal Med [address] [place] [address], [facility] [place] [phone] Kym Jasmine APRN-CNP [address] [place] [address] [address] [facility] [place] [address] Surgical Followup Social History Tobacco Use Types Packs/Day Years [...] encounter Miscellaneous Notes * Telephone Encounter - Kym Jasmine APRN-CNP - 09/21/2023 7:51 AM HANDKERCHIEF CUTTER Pt called to follow up on her surgery. Pt stated that surgery went well and that she was recoveringfine. No questions at this time. KERCHIEF CUTTER documented in this encounter Plan of Treatment Upcoming Encounters Date Type Department Care Team (Late st Contact Info) Description 12/15/2024 1:00 PM CDT Office Visit [facility] - [facility] [address] [facility], [place] [address] Neil Velasquez MD [address] [place] [address] documented as of this encounter Visit Diagnoses Not on filedocumented in this encounter Care Teams Yarn Hauler Relationship Specialty Start Date End Date Randi Gomes DO [address] [place] [address] PCP - General Internal Medicine 05/21/23 10/23/23 Randi Gomes DO [address] [place] [address] Resident - PCP Internal Medicine 03/14/23 07/02/24 documented as of this encounter
--- OUTSIDE RECORDS SUMMARY | 2024-08-02 09:59 | XMS_ITS | Encounter Summary ---
Author Organization [facility] Health Address [address] [facility] [place] [address] Care Team Providers Care Conveyor Weigher Operator Name Role Phone Randi Gomes DO Unavailable [phone] Neil Velasquez MD Primary Care Provider Reason for Visit * Reason Onset Date Comments MEDICATION REFILL 01/22/2024 Medication Request 01/17/2024 Encounter Details Date Type Department Care Team (Late st Contact Info) Description 01/17/2024 Refill [facility] Scheduling [address] [place] [address] Neil Velasquez MD [address] [place], [place] [id number] MEDICATION REFILL; Medication Request Social History Tobacco Use Types Packs/Day [...] encounter Miscellaneous Notes * Telephone Encounter - Neil Velasquez MD - 01/17/2024 2:18 PM CDT * Telephone Encounter - Devon Lazo RN - 01/17/2024 10:35 AM CDT Pt called in today to make new appt with her It is set for 03/12. She is needing meds refills toget her at least till the appt if not longer. The meds are Carvedilol Iron pills She [facility] [phone]. For questions please call pt at [phone]. Please and thank you for your time Carvedilol already sent in 01/09/24, ferrous sulfate no longer an active med Refill Request Mauricio Florse Recent Visits Date Type Provider Dept 10/24/23 Office Visit Neil Velasquez MD [facility] 2l 05/21/23 Office Visit Suzette John DO [facility] 2l Showing recent visits within past 540 days with a meds authorizing provider and meeting all other requirements Future Appointments Date Type Provider Dept 03/12/24 Appointment Neil Velasquez MD [facility] 2l Showing future appointments within next 150 days with a meds authorizing provider and meeting all other requirements Last Refill: 02/22/22 Allergies: Allergies Allergen Reactions Hydrocodone-Acetaminophen Rash Vicodin [place] Itching Pended Medication Order: Requested Prescriptions Pending Prescriptions Disp Refills ferrous sulfate 325 (65 FE) MG tablet 60 tablet 4 Sig: Take 1 (one) tablet by mouth 2 times daily with morning and evening meal * Telephone Encounter - AndreeaallanRoz - 01/17/2024 10:21 AM CDT Pt called in today to make new appt with her It is set for 03/12. She is needing meds refills toget her at least till the appt if not longer. The meds are Carvedilol Iron pills She would like them filled at [facility] [place] [phone]. For questions please call pt at [phone]. Please and thank you for your time documented in this encounter Plan of Treatment Upcoming Encounters Date Type Department Care Team (Late st Contact Info) Description 12/15/2024 1:00 PM CDT Office Visit [facility] - Internal Med [address] [facility] [place] [address] Neil Velasquez MD [address] [place] [address] documented as of this encounter Visit Diagnoses Diagnosis Essential hypertension Iron deficiency anemia, unspecified iron deficiency anemia type documented in this encounter Care Teams Conveyor Weigher Operator Relationship Specialty Start Date End Date Neil Velasquez MD [address] [place] [address] PCP - General Internal Medicine 10/24/23 Randi Gomes DO [address] [place] [address] Resident - PCP Internal Medicine 03/14/23 07/02/24 documented as of this encounter
--- OUTSIDE RECORDS SUMMARY | 2024-08-02 09:59 | XMS_ITS | Encounter Summary ---
Author Organization [facility] Health Address [address] [facility] [place] [address] Care Team Providers Care Patient Account Specialist Name Role Phone Ronald Casarez MD Primary Care Provider Randi Gomes DO Unavailable [phone] Reason for Visit * Reason Onset Date Comments MEDICATION REFILL 05/11/2023 Encounter Details Date Type Department Care Team (Late st Contact Info) Description 05/11/2023 Refill [facility] [address] [facility], [place] [phone] Randi Gomes, [address] [facility]?? [place], [place] [id number] MEDICATION REFILL Social History Tobacco Use Types Packs/Day Years [...] Telephone Encounter - Shelbie Turner LPN - 05/11/2023 9:42 AM CDT Refill Request Mauricio Flores Recent Visits Date Type Provider Dept 03/14/23 Office Visit Randi Gomes DO [facility] 2[facility] 11/22/22 Office Visit Rosalee Cano MD [facility] 2l Showing recent visits within past 540 days with a meds authorizing provider and meeting all other requirements Future Appointments No visits were found meeting these conditions. Showing future appointments within next 150 days with a meds authorizing provider and meeting all other requirements Last Refill: 02.21.23 Allergies: Allergies Allergen Reactions ??? Hydrocodone-Acetaminophen Rash Vicodin ??? [place] Itching Pended Medication Order: Requested Prescriptions Pending Prescriptions Disp Refills ??? hydrALAZINE (Apresoline) 50 MG tablet 270 tablet 0 Sig: Take 1 (one) tablet by mouth 3 times daily documented in this encounter Plan of Treatment Upcoming Encounters Date Type Department Care Team (Late st Contact Info) Description 12/15/2024 1:00 PM CDT Office Visit [facility] [address] [facility] [place] [address] Neil Velasquez MD [address] [place] [address] documented as of this encounter Visit Diagnoses Diagnosis Essential hypertension documented in this encounter Care Teams Patient Account Specialist Relationship Specialty Start Date End Date Ronald Casarez MD [address] [place] [phone] PCP - General Internal Medicine 12/06/22 05/20/23 Randi Gomes DO [address] [place] [address] Resident - PCP Internal Medicine 03/14/23 07/02/24 documented as of this encounter
--- OUTSIDE RECORDS SUMMARY | 2024-08-02 09:59 | XMS_ITS | Encounter Summary ---
Author Organization [facility] Health Address [address] [place] [address] Care Team Providers Care Cloth Doffer Name Role Phone Randi Gomes DO Unavailable [phone] Randi Gomes DO Primary Care Provider [phone] Encounter Details Date Type Department Care Team (Latest Contact Info) Description 09/05/2023 Travel Social History Tobacco Use Types Packs/Day [...] [facility] - [facility] [address] [facility], [place] [phone] Neil Velasquez MD [address] [facility] [place] [address] documented as of this encounter Visit Diagnoses Not on filedocumented in this encounter Care Teams Cloth Doffer Relationship Specialty Start Date End Date Randi Gomes DO [address] [place] [address] PCP - General Internal Medicine 05/21/23 10/23/23 Randi Gomes DO [address] [place] [address] Resident - PCP Internal Medicine 03/14/23 07/02/24 documented as of this encounter
--- OUTSIDE RECORDS SUMMARY | 2024-08-02 09:59 | XMS_ITS | Encounter Summary ---
Author Organization [facility] Health Address [address] [place] [address] Care Team Providers Care Log Check Scaler Name Role Phone Randi Gomes DO Unavailable [phone] Neil Velasquez MD Primary Care Provider Encounter Details Date Type Department Care Team (Latest Contact Info) Description 10/24/2023 Travel Social History Tobacco Use Types Packs/Day [...] [facility] [address] [facility], [place] [id number] Neil Velasquez MD [address] [facility] [place] [address] documented as of this encounter Visit Diagnoses Not on filedocumented in this encounter Care Teams Log Check Scaler Relationship Specialty Start Date End Date Neil Velasquez MD [address] [place] [address] PCP - General Internal Medicine 10/24/23 Randi Gomes, [address] [place] [address] Resident - PCP Internal Medicine 03/14/23 07/02/24 documented as of this encounter
--- OUTSIDE RECORDS SUMMARY | 2024-08-02 09:59 | XMS_ITS | Encounter Summary ---
Author Organization [facility] Health Address [address] [facility] [address] [place] [address] Care Team Providers Care Pressroom Foreman Name Role Phone Randi Gomes DO Unavailable [phone] Randi Gomes DO Primary Care Provider [phone] Reason for Visit * Reason Comments Hypertension Follow-up Medication Check Encounter Details Date Type Department Care Team (Latest Contact Info) Description 08/30/2023 10:[address] ADMINISTRATOR Clinical Support [facility] - Internal Med [address] [place] [phone] Primary hypertension Social History Tobacco Use Types Packs/Day Years [...] Sign Reading Time Taken Comments Blood Pressure 178/77 08/30/2023 11:[address] ADMINISTRATOR Pulse 48 08/30/2023 11:[address] ADMINISTRATOR Temperature 36.7 ??C (98 ??F) 08/30/2023 11: [address] ADMINISTRATOR Respiratory Rate - - Oxygen Saturation 96% 08/30/2023 11: [address] ADMINISTRATOR Inhaled Oxygen Concentration - - Weight 120.7 kg (266 lb 3.2 oz) 024 11:[address] ADMINISTRATOR Height 168.9 cm (5' 6.5 ) 08/30/2023 11 [address] ADMINISTRATOR Body Mass Index 42.32 08/30/2023 11:[address] ADMINISTRATOR documented in this encounter Patient Instructions * Patient Instructions* Timothy Leon F - 08/30/2023 11:[address] ADMINISTR[address] [facility] Internal Medicine is a Patient Centered Medical Home (PCMH) recognized practice. PCMH is a model of care that puts patients at the forefront of care. PCMH centers build better relationships between patients and their clinical care teams. Practices that earn this recognition have made a commitment to continuous quality improvement and a patient-centered approach to care. [facility] is committed to providing [...] for your doctor, the office phone is [phone]. You will be given options to get [...] primary care provider. Please call us at [phone], option 1, then option 1 in the morning you would like to be seen. Our fax number is [phone]. Instructions for reaching the practice after office hours For urgent concerns that cannot wait until phone lines are open on the next business day, please call [phone] to speak to the covering General Internal Medicine provider. Identify yourself as a patient in our practice and give the container crane operator your doctor's name. The container crane operator will contact the physician company controller. You can generally expect a return call within 30 minutes. Prescription Refills Contact your pharmacy to request all refills. You may also send a [employer] message for refills. Please allow a minimum of 48-72 hours for your prescription to be completed. Your pharmacy will notify you when your prescription is ready to be picked up. SCHEDULE YOUR OWN APPOINTMENT AT [facility] We are excited to announce that some [facility] appointments can now be scheduled online. If you are not able to access the type of appointment that you need using this service, our [facility] Scheduling department will be happy to continue to serve you. Use one of these options to schedule your next appointment today: Access self-scheduling options by visiting the [facility] Online Scheduling Webpage. Make an appointment by calling [facility] Central [phone] Visit our website at [email or web address] for information about our practice and an interactive health encyclopedia. T ADMINISTRATOR documented in this encounter Progress Notes * Timothy Leon - 08/30/2023 11:32 AM CST Patient came into clinic for blood pressure check 178/77 pulse 77 talked to provider he infomed me to schedule for acute appointment to go over bp meds T ADMINISTRATOR documented in this encounter Plan of Treatment Upcoming Encounters Date Type Department Care Team (Late st Contact Info) Description 12/15/2024 1:00 PM CDT Office Visit [facility] - Internal Med [address] [facility], [place] [address] Neil Velasquez MD [address] [place] [address] documented as of this encounter Visit Diagnoses Diagnosis Primary hypertension- Primary Unspecified essential hypertension documented in this encounter Care Teams Pressroom Foreman Relationship Specialty Start Date End Date Randi Gomes DO [address] [place] [address] PCP - General Internal Medicine 05/21/23 10/23/23 Randi Gomes DO [address] [place] [address] Resident - PCP Internal Medicine 03/14/23 07/02/24 documented as of this encounter
--- OUTSIDE RECORDS SUMMARY | 2024-08-02 09:59 | XMS_ITS | Encounter Summary ---
Author Organization [facility] Health Address [address] [facility] [place] [address] Care Team Providers Care Nuclear Equipment Operator Name Role Phone Randi Gomes DO Unavailable [phone] Neil Velasquez MD Primary Care Provider [phone] Reason for Visit * Reason Comments Follow-up Encounter Details Date Type Department Care Team (Latest Contact Info) Description 03/31/2024 1:00 PM CDT Office Visit [facility] [address] [facility], [place] [phone] Neil Velasquez MD [address] [facility] 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); Resistant hypertension; Isolated proteinuria with morphologic lesion; Iron deficiency anemia, unspecified iron deficiency anemia type; Healthcare maintenance Social History Tobacco Use Types Packs/Day Years [...] Sign Reading Time Taken Comments Blood Pressure 150/77 03/31/2024 12:56 PM CDT Pulse 57 03/31/2024 12:56 PM CDT Temperature - - Respiratory Rate - - Oxygen Saturation 95% 03/31/2024 12:56 PM CDT Inhaled Oxygen Concentration - - Weight 120.2 kg (265 lb) 03/31/2024 12:56 PM CDT Height 167.6 cm (5' 6 ) 03/31/2024 12:56 PM CDT Body Mass Index 42.77 03/31/2024 12:56 PM CDT documented in this encounter Progress Notes * Neil Velasquez MD - 03/31/2024 1:44 PM CDT [facility] Established Patient Note CC: Chief Complaint Patient presents with Follow-up Assessment & Plan: 1. Resistant hypertension -continue hydralazine 100mg TID, lisinopril HCTZ 20/25mg Qdaily, carvedilol 25mg BID -previously started on imdur but has been unable to start taking, will start taking and have repeatBP check in clinic -f/u w/ nephrology for resistant HTN -continue healthy diet and exercise 2. 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 Isolated proteinuria with morphologic lesion -f/u Micral on labs -referral to nephrology 4. Iron deficiency anemia, unspecified iron deficiency anemia type -will check iron with next labs 5. Healthcare maintenance -patient scheduled for mammo and DEXA scan at [facility] -patient will get PAP at [place] as well Preventative Care/Health Maintenance: Advanced care planning: n/a Immunizations - COVID19: recieved - Influenza: will address at next visit - Tdap: UTD - Pneumococcal: declines - Zoster: deferred - HepB: completed in childhood, patient reports receiving 3 dose series Colorectal cancer screening: due 2025 Lung cancer screening: Cardiovascular prevention:diabetes screening sent Depression screening: negative Female specific preventative care Cervical cancer screening: will schedule PAP at [place] Breast ca screening: scheduled 03/2025 Osteoporosis screening: scheduled at [place] 03/2024 Patient discussed with attending physician, Dr. Broussard, who agrees with my assessment and plan. Refreshed smartlinks? If so, click next option Return in about 3 months (around 07/01/2024). History of Present Illness: Mauricio Flores is a 58 year old female presenting to [facility] clinic for routine followup . Patient last seen in 10/2023 with changes made for hypertention. Has been unable to start Imdur or follow up with nephrology. Patient notes that she has been experiencing L hip pain, non radicular not a ssociated with incontinence. Has been following [facility] orthopedics and they performedsteroid injection which made significant improvement. Patient has been taking all other medicationsas prescribed. Past Medical/Surgical/Family/Social History: Reviewed and updated in Epic History tab Medications: Reviewed and updated in [...] Use 1 strip TID. 100 strip 11 hydrALAZINE (Apresoline) 100 MG [...] 3 tobramycin-dexAMETHasone (Tobradex) 0.3-0.1 % ophthalmic suspension VITAMIN D PO No current facility-administered medications for this visit. Allergies: Reviewed and updated in Epic Allergies tab Review of Systems: Negative unless noted in HPI Physical Exam: BP 150/77 Pulse 57 Ht 1.676 m (5' 6 ) Wt 120.2 kg (265 lb) SpO2 95% Physical Exam Vitals and nursing note reviewed. [...] General: Skin is warm and dry. Neurological: General: No focal deficit present. Mental Status: She is alert and oriented to person, place, and time. Mental status is at baseline. Cranial Nerves: No cranial nerve deficit. Psychiatric: Mood and Affect: Mood normal. Behavior: Behavior normal. Diabetic Foot Exam History: Do you have a history of a foot ulcer? No Do you currently have a foot ulcer? No Do you have any swelling in your feet? No Do you have an abnormal foot shape? No Do you have foot or ankle muscle weakness? No Is there pain, burning, numbness, or pins & needles in your feet/toes? Yes Can you see the bottom of your feet? Yes Are you doing daily foot exams at home? No Are the shoes appropriate in style and fit? Yes Exam with shoes and socks were removed: Skin: Intact; heavy callous build-up No Toenails: Normal Vascular: Right - DP and PT pulses: present 2+ Left- DP and PT pulses:present 2+ Neuro: Protective Sensation intact (10 gram): right foot 5/5, left foot 5/5 Performed by: Neil Velasquez MD Labs: Personally reviewed. Pertinent for: -will get labs later this week Imaging/Other diagnostic testing: Personally reviewed. Pertinent for: -n/a Lab Preference: [address] [address] Neil Velasquez MD 03/31/2024 Coding Rationale New or est? Established Patient Associated attestation - Mary Broussard DO - 04/02/2024 10:43 AM CDT Attending Physician Attestation I have discussed the patient and reviewed the resident's note at the time of the visit and I agree with history, physical exam, assessment, and plan. See note by Dr. Velasquez for further details. Date of service: 03/31/2024 Mary Broussard DO * Rhianna Mi - 03/31/2024 1:29 PM CDT Patient age [age] year old Do you have a diagnosis of Diabetes? Yes (If patient is younger than 22 and / or does not have a diabetic diagnosis, patient does not qualify for the diabetic retinopathy screening.) Contraindications Questionnaire -- Diabetic Retinopathy Screening Does Epic Contain a copy of a retinal screening this calendar year OR has an IDx exam been completed with an insufficient result this calendar year? Yes Are you ? No Do you have vision loss that cannot be corrected with glasses (blurred vision or floaters)? No Have you been diagnosed with macular edema, diabetic retinopathy, proliferative retinopathy, radiation retinopathy, or retinal vein occlusion? No Have you had laser treatment of the retina, injections into either eye, or retinal surgery? Yes Are you hypersensitive to light or do you take medication that causes photosensitivity? No Have you had photodynamic therapy for the treatment of any disease? No If any of the above criteria is answered yes, DO NOT ORDER. Patient does not meet criteria for diabetic bilateral retinal imaging through IDx-DR imaging. documented in this encounter Plan of Treatment Upcoming Encounters Date Type Department Care Team (Late st Contact Info) Description 12/15/2024 1:00 PM CDT Office Visit [facility] - Internal Med [address] [facility] [place] [address] Neil Velasquez MD [address] [place] [address]?? 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 [place] [address] PCP - General Internal Medicine 10/24/23 Randi Gomes DO [address] [place] [address] Resident - PCP Internal Medicine 03/14/23 07/02/24 documented as of this encounter
--- OUTSIDE RECORDS SUMMARY | 2024-08-02 09:59 | XMS_ITS | Encounter Summary ---
Author Organization [facility] Health Address [address] [place] [address] Care Team Providers Care Base Engineer Name Role Phone Randi Gomes DO Unavailable [phone] Randi Gomes DO Primary Care Provider [phone] Reason for Visit * Reason Comments Medical Clearance Encounter Details Date Type Department Care Team (Late st Contact Info) Description 09/17/2023 10:00 AM GUN NUMBER Office Visit [facility] - Internal Med [address] [place] [address] [place] [phone] Pre-operative general physical examination (Primary Dx) Social History Tobacco Use Types [...] Sign Reading Time Taken Comments Blood Pressure 140/62 09/17/2023 10:29 AM GUN NUMBER Pulse 64 09/17/2023 9:59 AM GUN NUMBER Temperature 36.6 ??C (97.9 ??F) 09/17/2023 9:59 AM CS T Respiratory Rate - - Oxygen Saturation 95% 09/17/2023 9:59 AM GUN NUMBER Inhaled Oxygen Concentration - - Weight 118.4 kg (261 lb) 09/17/2023 9:59 AM GUN NUMBER Height 167.6 cm (5' 6 ) 09/17/2023 9:59 AM GUN NUMBER Body Mass Index 42.13 09/17/2023 9:59 AM GUN NUMBER documented in this encounter Progress Notes * Kym Jasmine APRN-CNP - 09/17/2023 10:[address] [facility] Acute Care Patient Note CC: Chief Complaint Patient presents with ??? Medical Clearance History of Present Illness: Mauricio Flores is a 58 year old female presenting to acute clinic for eye clearance for tomorrow, per Dr Deondre Figueredo. For virectomy membrane peel, Laser kenalog Cataract Extraction lens to Rt eye Have a hx of diabetes type 2 Last A1c = 6.1 03/14/23 Echo 09/05/23 Not taking any medication for diabetes. Stated she just changed her eating habits. Echo 09/05/23= complete 2D color doppler, left ventricle normal size, mildly increased wall thickness. EF biplane 79% biplane , grade II diastolic dysfunction with elevated left artrial pressure. Today she denies c/p, palpations, tee, leg swelling, sob, Wheezing or cough. Follow up with PCP Randi Gomes DO Perioperative Cardiac Risk Stratification for Noncardiac Surgery Risk Assessment based on 2014 ACC/AHA Guidelines [facility] Department of Internal Medicine Patient Name: Mauricio Flores (58 year old female) Room Number: Room/bed info not found Requesting Service: 09/17/23 Planned Surgery: 09/18/23 Recommendation: Patient is (low) risk for (low) risk surgery GIANNA Perdomo Step One Bold all that apply. Patient [...] have acute coronary syndrome (UA/NSTEMI or STEMI?) NO If yes, consult Cardiology for Guideline-Directed Medical Therapy If no, proceed below Step Four Estimate the perioperative risk of a Major Adverse Cardiac Event (MACE). Add one point for each positive category. Is the surgery high-risk? (1 point if yes to any): 0 Intraperitoneal Intrathoracic Suprainguinal vascular History of ischemic heart disease? (1 point if yes to any): 0 History of [place] History of positive stress test Current chest pain considered due to myocardial ischemia Use of nitrate therapy ECG with pathologic Q waves History of congestive heart failure? (1 point if yes to any): 1 Pulmonary edema, bilateral rales or S3 gallop Paroxysmal nocturnal dyspnea CXR showing pulmonary vascular congestion History of cerebrovascular disease? (1 point if yes): 1 Prior TIA or stroke Insulin-dependent Type II Diabetes (1 point if yes): 0 Preoperative creatinine > 2 mg/dl? (1 point if yes): 0 0 Points - 0.4% risk 1 Point - 0.9% risk 2 Points - 6.6% risk 3 or more Points - 11% risk Risk of Major Adverse Cardiac Event (MACE): 6.6 % If MACE < 1%, no further testing required. Proceed to surgery. Patient is low risk. If MACE > 1%, proceed below. Step Five Assess the patient's [...] making for surgery or change perioperative care? If no, proceed to surgery according to Guideline Directed Medical Treatment or use alternative strategies (noninvasive treatment, palliative care) If yes, perform Pharmacologic Stress Testing If Stress Testing is normal, patient is low risk. Proceed to surgery. If Stress Testing is abnormal, recommend Cardiology consultation according to existing Clinical Practice Guidelines. Surgical [...] procedure Major vascular, skeletal or neurologic repair Source: 2014 ACC/AHA Guideline on Perioperative Cardiovascular Evaluation and Management of Patients Undergoing Noncardiac Surgery (http://circ.ahajournals.org/content/130/24/e278.full) Past Medical/Surgical/Family/Social History: Reviewed and updated in Epic History tab Medications: Reviewed and updated in Epic Medications tab Current Outpatient Medications Medication Sig Dispense Refill ??? Ascorbic Acid (ALPHONSE-C PO) (Patient not taking: Reported on 08/14/2023) ??? aspirin (ASPIRIN) 81 MG tablet (Patient not taking: Reported on 08/14/2023) 100 tablet ??? atorvastatin (Lipitor) 40 MG tablet Take 1 (one) tablet by mouth once daily (Patient not taking: Reported on 08/14/2023) 100 tablet 4 ??? carvedilol (Coreg) 25 [...] by mouth 3 times daily 90 tablet 0 ??? LANCETS SUPER THIN 28G MISC Use TID. (Patient not taking: Reported on 07/11/2023) 100 11 ??? lisinopril (Prinivil; Zestril) 10 MG tablet Take 1 (one) tablet by mouth once daily In additionto lisinopril-hydrochlorothiazide 20mg-12.5mg 100 tablet 0 ??? lisinopril-hydroCHLOROthiazide (Prinzide; Zestoretic) 20-12.5 MG tablet Take 1 (one) tablet by mouth once daily (Patient not taking: Reported on 08/30/2023) 90 tablet 1 ??? tobramycin-dexAMETHasone (Tobradex) 0.3-0.1 % ophthalmic suspension INSTILL 1 DROP INTO THE RIGHT EYE 4 TIMES DAILY-START DROPS AFTER SURGERY (Patient not taking: Reported on 09/17/2023) ??? VITAMIN D PO (Patient not taking: Reported on 08/14/2023) No current facility-administered medications for this visit. Allergies: Reviewed and updated in Epic Allergies tab Review of Systems: Review of Systems Constitutional: Negative. HENT: Negative. Respiratory: Negative. Cardiovascular: Denies c/p, palpitations, tee or lower leg swelling. Gastrointestinal: Negative. Genitourinary: Negative. Neurological: Negative. Psychiatric/Behavioral: Negative. Physical Exam: BP 140/62 (BP SITE: RIGHT ARM, BP POSITION: SITTING, BP Cuff Size: L) Pulse 64 Temp 97.9 ??F (36.6 ??C) (Oral) Ht 1.676 m (5' 6 ) Wt 118.4 kg (261 lb) SpO2 95% Physical Exam Vitals reviewed. Constitutional: Appearance: Normal appearance. HENT: Head: Normocephalic. Nose: Nose normal. Mouth/Throat: Mouth: Mucous membranes are moist. Eyes: Extraocular Movements: Extraocular movements intact. Neck: Comments: No jvd Cardiovascular: Rate and Rhythm: Normal rate and regular rhythm. Pulses: Normal pulses. Heart sounds: Normal heart sounds. Pulmonary: Effort: Pulmonary effort is normal. Breath sounds: Normal breath sounds. Abdominal: General: Bowel sounds are normal. Palpations: Abdomen is soft. Musculoskeletal: General: Normal range of motion. Cervical back: Normal range of motion. Skin: General: Skin is warm. Neurological: Mental Status: She is alert and oriented to person, place, and time. Psychiatric: Mood and Affect: Mood normal. Thought Content: Thought content normal. Labs: Personally reviewed. Pertinent for: Imaging/Other diagnostic testing: Personally reviewed. Pertinent for: Lab Preference: [facility] [address] [facility] [id number] Assessment & Plan: 1. Pre-operative general physical examination Paperwork completed For virectomy membrane peel, Laser kenalog Cataract Extraction lens to Rt eye Per Dr Deondre Figueredo Denies c/p, palpations, tee, leg swelling, sob, wheezing, A1c 6.1 on 03/14/23 Echo 09/05/23= complete 2D color doppler, left ventricle normal size, mildly increased wall thickness. EF biplane 79% biplane , grade II diastolic dysfunction with elevated left artrial pressure. GIANNA Perdomo 09/17/2023 Billing Guide NUMBER documented in this encounter Plan of Treatment Upcoming Encounters Date Type Department Care Team (Late st Contact Info) Description 12/15/2024 1:00 PM CDT Office Visit [facility] - Internal Med [facility] [facility] [place] [address] Neil Velasquez MD [address] [place] [address] documented as of this encounter Visit Diagnoses Diagnosis Pre-operative general physical examination- Primary Other specified pre-operative examination documented in this encounter Care Teams Base Engineer Relationship Specialty Start Date End Date Randi Gmoes DO [address] [place] [address] PCP - General Internal Medicine 05/21/23 10/23/23 Randi Gomes DO [address] [place] [address] Resident - PCP Internal Medicine 03/14/23 07/02/24 documented as of this encounter
--- OUTSIDE RECORDS SUMMARY | 2024-08-02 09:59 | XMS_ITS | Encounter Summary ---
Author Organization [facility] Health Address [address] [facility] [place] [address] Care Team Providers Care Security Researcher Name Role Phone Randi Gomes DO Unavailable [phone] Neil Velasquez MD Primary Care Provider [phone] Encounter Details Date Type Department Care Team (Latest Contact Info) Description 05/06/2024 9:25 AM CDT - 05/06/2024 11:59 PM T Hospital Encounter [facility] OP DRAW STATION [address] [place] [address] [phone] Discharge Disposition: Home or Self Care Social [...] Description 12/15/2024 1:00 PM CDT Office Visit [facility] - Internal Med [address], [place] [address] Neil Velasquez MD [address] [facility] 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) HEMOGLOBIN A1C Routine 05/06/2024 9:50 AM CDT [...] deficiency anemia type documented in this encounter Results * MICROALB/CREAT RATIO URINE RANDOM PANEL (05/06/2024 9:56 AM CDT) Pathologist [facility] Albumin Random Urine 34.2 Not Established ug/mL 05/06/2024 11:11 AM CDT [facility]OR[facility] Creatinine Urine 206.98 Not Established mg/dL 05/06/2024 11:11 AM CDT [facility] Urine Albumin/Creati nine Ratio 17 <30 mg/g 05/06/2024 11:11 AM CDT [facility] Urine URINE SPECIMEN OBTAINED BY CLEAN CATCH PROCEDURE / Unknown Collection / Unknown 05/06/2024 9:56 AM CDT 05/06/2024 10:20 AM CDT Ronald Casarez MD LAB - URINE CHEMISTR Y ORDERABLES [address] [address], [facility] [phone] * IRON BLOOD (05/06/2024 9:50 AM CDT) Pathologist [facility] Iron 62 40 - 150 ug/dL 05/06/2024 10:55 AM CDT [facility] Blood BLOOD SPECIMEN / Unknown Lab Venipuncture / Unknown 05/06/2024 9:50 AM CDT 05/06/2024 10:20 AM CDT Ronald Casarez MD LAB - CHEMISTRY [place] DC [address] [address], [facility] [phone] * (ABNORMAL) HEMOGLOBIN A1C (05/06/2024 9:50 AM CDT) Pathologist [facility] Hemoglobin A1c 6.4(H) <=5.6 % 05/06/2024 11:[address] [facility] Estimated Average Glucose 137 mg/dL 05/06/2024 11:[address] [facility] Comment: HbA1c Interpretation: Normal : < 5.7% Pre-diabetes: 5.7-6.4% Diabetes: Equal to or greater than 6.5% Test results diagnostic of diabetes should be repeated for confirmation. Treatment target values recommended by ADA and other clinical organizations should be used to evaluate metabolic control in patients. Reference: [employer] Diabetes Association, Standards of Care in Diabetes [...] Ronald Casarez MD LAB - CHEMISTRY CHARMAINE [facility] Organization Address City/State/ZIP Co de Phone Number [facility] [address] [place] [address], [facility] [phone] * CBC W/O DIFFERENTIAL (05/06/2024 9:50 AM CDT) [facility] Signature WBC 6.8 4.0 - 10.7 x10E9/L 05/06/2024 10:[address] [facility] RBC Count 4.89 3.90 - 5.20 x10E12/L 05/06/2024 10:[address] [facility] Hemoglobin 13.2 11.9 - 15.8 g/dL 05/06/2024 10:[address] [facility] Hematocrit 40.9 34.8 - 46.1 % 05/06/2024 10:[address] [facility] MCV 83.6 80.0 - 98.0 fL 05/06/2024 10:[address] [facility] MCH 27.0 26.7 - 33.6 pg 05/06/2024 10:[address] [facility] MCHC 32.3 31.7 - 36.3 g/dL 05/06/2024 10:[address] [facility] RDW-CV 13.0 11.3 - 14.8 % 05/06/2024 10:[address] [facility] Platelet Count 238 150 - 420 x10E9/L 05/06/2024 10:[address] [facility] MPV 11.0 7.8 - 11.4 fL 05/06/2024 10:[address] [facility] Blood BLOOD SPECIMEN / Unknown Lab Venipuncture / Unknown 05/06/2024 9:50 AM CDT 05/06/2024 10:22 AM T Ronald Casarez MD LAB - HEMATOLOGY ORD ERABLES [facility] [address] [place] [address], [facility] [phone] * (ABNORMAL) BASIC METABOLIC PANEL (CALCIUM TOTAL) (05/06/2024 9:50 AM T) BUN 21 7 - 26 mg/dL 05/06/2024 11:[address] [facility] Creatinine 1.17(H) 0.56 - 0.96 mg/dL 05/06/2024 11:[address] [facility] Sodium 142 136 - 145 mmol/L 05/06/2024 11:[address] [facility] Potassium 4.0 3.5 - 4.5 mmol/L 05/06/2024 11:[address] [facility] Chloride 110(H) 98 - 107 mmol/L 05/06/2024 11:[address] [facility] CO2 25 22 - 29 mmol/L 05/06/2024 11:[address] [facility] Glucose 118(H) 70 - 115 mg/dL 05/06/2024 11:[address] [facility] Calcium 9.4 8.4 - 10.2 mg/dL 05/06/2024 11:[address] [facility] Anion Gap 7 6 - 16 05/06/2024 11:[address] [facility] BUN/Creatinine Ratio 18 7 - 05/06/2024 11:[address] [facility] Osmolality Calculated 298(H) 275 - 295 mOsm/kg 05/06/2024 11:[address] [facility] eGFR by CKD-EPI 54(L) >=90 mL/min/1.7 3 m2 05/06/2024 11:[address] [facility] Blood BLOOD SPECIMEN / Unknown Lab Venipuncture / Unknown 05/06/2024 9:50 AM CDT 05/06/2024 10:22 AM CDT Ronald Casarez MD LAB - CHEMISTRY [place]MAINE DC 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 [place] [address] PCP - General Internal Medicine 10/24/23 Randi Gomes DO [address] [place] [address] Resident - PCP Internal Medicine 03/14/23 07/02/24 documented as of this encounter
--- OUTSIDE RECORDS SUMMARY | 2024-08-02 09:59 | XMS_ITS | Encounter Summary ---
Author Organization [facility] Health Address [address] [facility] [place] [address] Care Team Providers Care Inbound Customer Service Agent Name Role Phone Randi Gomes DO Unavailable [phone] Randi Gomes DO Primary Care Provider [phone] Reason for Referral * Evaluate & Treat (Routine) - Closed Specialty Diagnoses / Procedures Referred By Contluis angel t Referred To Contact Nephrology Diagnoses Essential hypertension Ronald Casarez MD [address] [place] [address] [facility] Ne[facility] [address] [place] [address] Referral ID Status Reason Start Date Expiration Date V isits Requested Visits Authorized [id number] Closed Specialty Services Required 07/11/2023 07/10/2024 1 1 ARCH ENVIRONMENTAL ENGINEER * Evaluate (Routine) - Closed Specialty Diagnoses / Procedures Referred By Contluis angel t Referred To Contact Obstetrics and Gynecology Diagnoses Screening for cervical cancer Ronald Casarez MD [address] [place] [address] [facility] Obgyn [facility] [address] [facility] [address] [place] [address] Referral ID Status Reason Start Date Expiration Date V isits Requested Visits Authorized [id number] Closed Specialty Services Required 07/11/2023 07/10/2024 1 1 ARCH ENVIRONMENTAL ENGINEER Reason for Visit * Reason Comments Follow-up Encounter Details Date Type Department Care Team (Latest Contact Info) Description 07/11/2023 3:30 PM RESEARCH ENVIRONMENTAL ENGINEER Office Visit [facility] - Internal Med [address] [facility] [place] [address] Mireya Randi, DO [address] [facility] 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); Class 3 severe obesity with serious comorbidity and body mass index (BMI) of 45.0 to 49.9 in adult, unspecified obesity type (HCC); Hyperlipidemia, unspecified hyperlipidemia type; Personal history of transient ischemic attack (TIA), and cerebral infarction without residual deficits; Pericardial cyst (HCC); Resistant hypertension Social History Tobacco Use Types Packs/Day [...] Sign Reading Time Taken Comments Blood Pressure 196/96 07/11/2023 3:36 PM RESEARCH ENVIRONMENTAL ENGINEER Pulse 58 07/11/2023 3:36 PM RESEARCH ENVIRONMENTAL ENGINEER Temperature - - Respiratory Rate - - Oxygen Saturation 98% 07/11/2023 3:36 PM RESEARCH ENVIRONMENTAL ENGINEER Inhaled Oxygen Concentration - - Weight 121.6 kg (268 lb) 07/11/2023 3:36 PM RESEARCH ENVIRONMENTAL ENGINEER Height 166.4 cm (5' 5.5 ) 07/11/2023 3:36 PM RESEARCH ENVIRONMENTAL ENGINEER Body Mass Index 43.92 07/11/2023 3:36 PM RESEARCH ENVIRONMENTAL ENGINEER documented in this encounter Patient Instructions * Patient Instructions* BoubacarRanid lemusDO - 07/11/2023 3:10 PM RESEARCH ENVIRONMENTAL ENGINEER Ms. Rickie Flores, Thank you so much for your time spent with us at your appointment today! You were seen in the General Internal Medicine clinic today for routine followup . Below is a summary of our discussion today. We ordered the following tests: -Kidney function -Hepatitis B screening Referrals provided: -OBGYN- [phone] - call to re-schedule your pap smear if you cannot make the appointment already scheduled for you -Nephrology - [phone]- please call to schedule an appointment to discuss your uncontrolled blood pressure Additional instructions: -Schedule your sleep study: [phone] -Please remember to take your cholesterol medication (Atorvastatin 40 mg) daily- call the office once you start taking it again and let us know if you are having side effects -Remember to take Aspirin daily! Please check your blood pressure at home after you have taken your medication. Call the office in 1week with your blood pressure readings. We will adjust your medications at that time if needed. Please remember to engage in a healthy lifestyle. The below recommendations for a healthy lifestylecan improve many aspects of your health and can reduce risk for diabetes, high blood pressure, heart disease, and other health conditions: - Aim for 150 minutes of moderate intensity exercise per week (30 minutes a day for 5 days each week) - Try to eat plenty of fruits and vegetables, whole grains, low-fat dairy products - Include lean proteins such as chicken, fish, beans, nuts (unless you have dietary restrictions) - Try to reduce saturated and total fat intake - Try to reduce sodium intake (ideally to less than 2g/day) - Keep alcohol consumption to less than 1-2 drinks per day We will plan to follow up with you in 6 months. You can call to schedule any followup visits or testing that need to be scheduled Please feel free to contact us in between visits with any questions or concerns If you use [facility], this is the easiest way to get in touch with us if you need us for anything, please only use for non-urgent medical advice (we will get back to you in 3-5 days) You can also call the [facility] office if you do not use MyChart or would prefer to speak to someone Patient Care Team: Randi Gomes DO as PCP - General (Internal Medicine) Randi Gomes DO as Resident - PCP (Internal Medicine) Preferred Lab [facility] [address] [facility] [address] Thanks again, Randi Gomes D.O. ARCH ENVIRONMENTAL ENGINEER documented in this encounter Progress Notes * Randi Gomes DO - 07/11/2023 3:30 PM CST [facility] Internal Medicine Established Patient Note CC: Chief Complaint Patient presents with ??? Follow-up Assessment & Plan: #HTN, uncontrolled #Hx proteinuria -BP in the office today: 196/96 -Compliant with Carvedilol 25 mg BID, Hydralazine 75 mg TID and Lisinopril 40 mg daily PLAN: -Continue Carvedilol 25 mg BID -Increase Hydralazine from 75 mg TID to 100 mg TID -Discontinue Lisinopril 40 mg daily -Start Lisinopril/HCTZ 20-12.5 mg daily -Start Nifedipine 60 mg daily -Discussed importance of low salt diet and encouraged weight loss -Check BMP today -Referral to nephrology given resistant HTN -Patient to schedule sleep study, has appointment with sleep center 08/01/2023 -Advised patient to call office with home BP readings in 1 week -If BP remains uncontrolled, consider renal CTA #Hx TIA #HLD -Lipid profile (03/2023): LDL 103 -Not compliant with Atorvastatin or Aspirin daily PLAN: -Emphasized importance of taking Aspirin 81 mg daily and Atorvastatin 40 mg daily -Patient reports myalgias with statin, advised her to re-start medication and call office in 1 weekif experiences symptoms #DM2, diet controlled #Diabetic neuropathy -Last A1c (03/2023): 6.1 -Annual eye exam: UTD -Last foot exam: 11/2022, intact sensation bilaterally -Lipid panel (03/2023): LDL 103 -Last microalbumin/Cr (03/2023): 34 PLAN: -Continue Atorvastatin 40 mg daily -Continue diet control and weight loss #Obesity PLAN: -Declines nutrition consult at this time -Discussed healthy diet and exercise #Pericardial cyst -Noted on outside imaging -Cardiology recommends yearly echo x2 years and then every 5 years if stable -Patient is due for repeat echo PLAN: -Echo scheduled 09/05/2023 #Left pretibial sims numbness -Reported at visit last month -Labs ordered by Dr. John, patient never completed PLAN: -Advised patient to complete lab work ordered by Dr. John Preventative Care/Health Maintenance: Immunizations - COVID19: due for booster - Influenza: declined - Tdap: UTD - Pneumococcal: declined - Zoster: received today Colorectal cancer screening: due for repeat 2025 due to family history Lung cancer screening: N/A HIV: declined Hep C: UTD Cardiovascular prevention: lipids UTD, diabetes screening UTD, tobacco use discussed Cervical cancer screening: OBGYN referral placed tday Breast ca screening: UTD Osteoporosis screening: due age 65 Patient discussed with attending physician, Dr. Casarez, who agrees with my assessment and plan. Return in about 3 months (around 10/11/2023) for HTN. History of Present Illness: Mauricio Flores is a 58 year old female presenting to [facility] for routine followup . #HTN, uncontrolled -BP in the office today: 196/96 -Blood pressure log at home: 150-200 systolic/80-100s diastolic -Does not endorse chest pain, shortness of breath, vision changes, or LE edema -Denies snoring or gasping for air at night -Compliant with Carvedilol 25 mg BID, Hydralazine 75 mg TID and Lisinopril 40 mg daily -Patient has not yet completed sleep study #Hx TIA #HLD -Not compliant with Atorvastatin or Aspirin daily -Patient reports myalgias secondary to statin #Obesity -She does not exercise daily -She eats red meat daily, chips and a lot of carbohydrates #Pericardial cyst -Noted on outside imaging -Cardiology recommends yearly echo x2 years and then every 5 years if stable -Patient is due for repeat echo, has not yet scheduled this Past Medical/Surgical/Family/Social History: Reviewed and updated in [...] 03/14/2023) 100 strip 11 ??? hydrALAZINE (Apresoline) 100 MG tablet Take 1 (one) tablet by mouth 3 times daily 270 tablet 1 ??? LANCETS SUPER THIN 28G MISC Use TID. (Patient not taking: Reported on 07/11/2023) 100 11 ??? lisinopril-hydroCHLOROthiazide (Prinzide; Zestoretic) 20-12.5 MG tablet Take 1 (one) tablet by mouth once daily 90 tablet 1 ??? NIFEdipine CR 24hr (Adalat CC) 60 MG tablet Take 1 (one) tablet by mouth once daily Take on an empty stomach. 90 tablet 1 ??? VITAMIN D PO No current facility-administered medications for this visit. Allergies: Reviewed and updated in Epic Allergies tab Review of Systems: Review of Systems Constitutional: Negative for chills, fever and weight loss. HENT: Negative for congestion and sore throat. Eyes: Negative for blurred vision and double vision. Respiratory: Negative for shortness of breath and wheezing. Cardiovascular: Negative for chest pain and leg swelling. Gastrointestinal: Negative for abdominal pain, nausea and vomiting. Genitourinary: Negative for frequency and urgency. Musculoskeletal: Negative for back pain and myalgias. Neurological: Negative for dizziness and weakness. Psychiatric/Behavioral: Negative for depression. The patient is not nervous/anxious. Physical Exam: BP (!) 196/96 Pulse 58 Ht 1.664 m (5' 5.5 ) Wt 121.6 kg (268 lb) SpO2 98% Physical Exam Constitutional: General: She is not in acute distress. Appearance: She is obese. HENT: Head: Normocephalic and atraumatic. Nose: Nose normal. Mouth/Throat: Mouth: Mucous membranes are moist. Eyes: Conjunctiva/sclera: Conjunctivae normal. Cardiovascular: Rate and Rhythm: Normal rate and regular rhythm. Heart sounds: Normal heart sounds. Pulmonary: Effort: Pulmonary effort is normal. No respiratory distress. Breath sounds: Normal breath sounds. Abdominal: Palpations: Abdomen is soft. Tenderness: There is no abdominal tenderness. Musculoskeletal: Right lower leg: Edema present. Left lower leg: Edema present. Comments: Trace bilateral LE edema Skin: General: Skin is warm and dry. Neurological: General: No focal deficit present. Mental Status: She is alert and oriented to person, place, and time. Psychiatric: Behavior: Behavior normal. Thought Content: Thought content normal. Labs: Personally reviewed. Imaging/Other diagnostic testing: Personally reviewed. Lab Preference: [facility] [address] [place] [id number] Randi Gomes, 07/10/2023 Billing Guide ARCH ENVIRONMENTAL ENGINEER Associated attestation - Ronald Casarez MD - 07/12/2023 10:29 AM RESEARCH ENVIRONMENTAL ENGINEER Attending Physician Attestation I saw and examined the patient with the resident, and I agree with the resident's history, physicalexam, and assessment and plan. Date of Service: 07/11/2023 Ronald Casarez MD documented in this encounter Plan of Treatment Upcoming Encounters Date Type Department Care Team (Late st Contact Info) Description 12/15/2024 1:00 PM CDT Office Visit [facility] - Internal Med [address] [facility] [place] [address] Neil Velasquez MD [address] [facility] [place] [address] Scheduled Referrals Name Type Priority Associated Diagnoses Orde r Schedule Ref to OBGYN - [place] 400 Outpatient Referral Routine Screening for cervical cancer 1 Occurrences starting 07/11/2023 until 07/11/2024 Ref to Nephrology - [facility] Outpatient Referral Routine Essential hypertension 1 Occurrences starting 07/11/2023 until 07/11/2024 documented as of this encounter Results * HEPATITIS B SURFACE ANTIBODY (07/18/2023 11:36 AM RESEARCH ENVIRONMENTAL ENGINEER) Hepatitis B Virus Surface Antibody Non-react laury Non-react laury 07/18/2023 1:03 PM RESEARCH ENVIRONMENTAL ENGINEER [facility] Comment: < 8 mIU/mL Hepatitis B surface Antibody (HBsAb). Nonreactive for HBsAb - individual is considered not immune to Hepatitis B Virus infection. Hepatitis B Surface Antibody Quantitative 0.0 <8.0 mIU/mL 07/18/2023 1:03 PM [facility] Comment: Hepatitis B Surface Antibody Numeric Result Interpretation: ? Nonreactive: ?<8.0 mIU/mL ? Indeterminate: ??8.0 - 12.0 mIU/mL ? Reactive: ?>12.0 mIU/mL ? Blood BLOOD SPECIMEN / Unknown Lab Venipuncture / Unknown 07/18/2023 11:36 AM RESEARCH ENVIRONMENTAL ENGINEER 07/18/2023 11:58 AM [facility] [[email or web address]] Ronald Casarez MD LAB - CHEMISTRY [place]MA[place] DC [facility] Organization Address City/State/[facility] Co de Phone Number [facility] [address] [place] [address], [facility] [phone] * (ABNORMAL) BASIC METABOLIC PANEL (CALCIUM TOTAL) (07/18/2023 11:36 AM RESEARCH ENVIRONMENTAL ENGINEER) BUN 20 7 - 26 mg/dL 07/18/2023 12:39 PM [facility] Creatinine 1.23(H) 0.56 - 0.96 mg/dL 07/18/2023 12:39 PM [facility] Sodium 140 136 - 145 mmol/L 07/18/2023 12:39 PM [facility] Potassium 3.6 3.5 - 4.5 mmol/L 07/18/2023 12:39 PM [facility] Chloride 105 98 - 107 mmol/L 07/18/2023 12:39 PM [facility] CO2 25 22 - 29 mmol/L 07/18/2023 12:39 PM [facility] Glucose 135(H) 70 - 115 mg/dL 07/18/2023 12:39 PM [facility] Calcium 9.5 8.4 - 10.2 mg/dL 07/18/2023 12:39 PM [facility] Anion Gap 10 6 - 16 07/18/2023 12:39 PM [facility] BUN/Creatinine Ratio 16 7 - 23 07/18/2023 12:39 PM [facility] Osmolality Calculated 295 275 - 295 mOsm/kg 07/18/2023 12:39 PM [facility] eGFR by CKD-EPI 51(L) >=90 mL/min/1.7 3 m2 07/18/2023 12:39 PM [facility] Blood BLOOD SPECIMEN / Unknown Lab Venipuncture / Unknown 07/18/2023 11:36 AM RESEARCH ENVIRONMENTAL ENGINEER 07/18/2023 12:06 PM [facility] [[email or web address]] Ronald Casarez MD LAB - CHEMISTRY [place]MA[place] DC [facility] Organization Address City/State/ZIP Co de Phone Number [facility] [address] [place] [address], [facility] [phone] documented in this encounter Visit Diagnoses Diagnosis Essential hypertension- Primary Need for hepatitis B screening test Encounter for screening for cervical cancer Screening for cervical cancer Screening for malignant neoplasm of the cervix Need for vaccination for zoster Need for prophylactic vaccination and inoculation against varicella 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) Type II or unspecified type diabetes mellitus with unspecified complication, not stated as uncontrolled Class 3 severe obesity with serious comorbidity and body mass index (BMI) of 45.0 to 49.9 in adult, unspecified obesity type (HCC) Hyperlipidemia, unspecified hyperlipidemia type Personal history of transient ischemic attack (TIA), and cerebral infarction without residual deficits Pericardial cyst (HCC) Other specified congenital anomaly of heart Resistant hypertension documented in this encounter Care Teams Inbound Customer Service Agent Relationship Specialty Start Date End Date Randi Gomes DO [address] [place] [address] PCP - General Internal Medicine 05/21/23 10/23/23 Randi Gomes DO [address] [place] [address] Resident - PCP Internal Medicine 03/14/23 07/02/24 documented as of this encounter
--- OUTSIDE RECORDS SUMMARY | 2024-08-02 09:59 | XMS_ITS | Encounter Summary ---
Author Organization [facility] Health Address [address] [place] [address] Care Team Providers Care Hematology Specialist Name Role Phone Randi Gomes DO Unavailable Randi Gomes DO Primary Care Provider [phone] Encounter Details Date Type Department Care Team (Latest Contact Info) Description 09/17/2023 Travel Social History Tobacco Use Types Packs/Day [...] [facility] - Internal Med [address] [facility] [place] [address] Neil Velasquez MD [address] [facility] [place] [address] documented as of this encounter Visit Diagnoses Not on filedocumented in this encounter Care Teams Hematology Specialist Relationship Specialty Start Date End Date Randi Gomes DO [address] [place] [address] PCP - General Internal Medicine 05/21/23 10/23/23 Randi oGmes DO [address] [place] [address] Resident - PCP Internal Medicine 03/14/23 07/02/24 documented as of this encounter
--- OUTSIDE RECORDS SUMMARY | 2024-08-02 09:59 | XMS_ITS | Encounter Summary ---
Author Organization [facility] Address [address] [place] [address] Care Team Providers Care Sales And Events Coordinator Name Role Phone Randi Gomes DO Unavailable [phone] Neil Velasquez MD Primary Care Provider Encounter Details Date Type Department Care Team (Latest Contact Info) Description 03/31/2024 Travel Social History Tobacco Use Types Packs/Day [...] 1:00 PM CDT Office Visit [facility] - Internal Med [address] [facility] [place], [place] [address] Neil Velasquez MD [address] [facility]?? [place] [address] documented as of this encounter Visit Diagnoses Not on filedocumented in this encounter Care Teams Sales And Events Coordinator Relationship Specialty Start Date End Date Neil Velasquez MD [address] [place] [address] PCP - General Internal Medicine 10/24/23 Randi Gomes, [address]?? [place] [address] Resident - PCP Internal Medicine 03/14/23 07/02/24 documented as of this encounter
--- OUTSIDE RECORDS SUMMARY | 2024-08-02 09:59 | XMS_ITS | Encounter Summary ---
Author Organization [facility] Address [address] [facility] [place] [address] Care Team Providers Care Appliquer Name Role Phone Randi Gomes DO Unavailable [phone] Randi Gomes DO Primary Care Provider Reason for Visit * Reason Comments Refill Request Encounter Details Date Type Department Care Team (Late st Contact Info) Description 06/25/2023 Refill [facility] - Internal Med [address] [facility], [place] [phone] Randi Gomes DO [address] [facility]?? [place] [address] Refill Request Social History Tobacco Use Types [...] encounter Miscellaneous Notes * Telephone Encounter - Chayito York RN - 06/25/2023 11:40 AM HVAC SPECIALIST Refill Request NEREIDA:05/21/2023 NOV scheduled: 07/11/2023 Hydralazine LRF:05/11/2023 Qty Disp:270 # of refills:0 Carvedilol LRF: 03/21/2023 Qty Disp: 60 # of refills: 2 Allergies: Allergies Allergen Reactions ??? Hydrocodone-Acetaminophen Rash Vicodin ??? Cypress Itching Pended Medication Order: Requested Prescriptions Pending Prescriptions Disp Refills ??? hydrALAZINE (Apresoline) 50 MG tablet [Pharmacy Med Name: HYDRALAZINE 50 MG TABLET] 270 tablet 0 Sig: TAKE 1 TABLET BY MOUTH THREE TIMES A DAY ??? carvedilol (Coreg) 25 MG tablet [Pharmacy Med Name: CARVEDILOL 25 MG TABLET] 180 tablet Sig: TAKE 1 TABLET BY MOUTH TWICE A DAY WITH MORNING AND EVENING MEAL SPECIALIST documented in this encounter Plan of Treatment Upcoming Encounters Date Type Department Care Team (Late st Contact Info) Description 12/15/2024 1:00 PM CDT Office Visit [facility] - Internal Med [address] [facility], [place] [address] Neil Velasquez MD [address] [place] [address] documented as of this encounter Visit Diagnoses Diagnosis Essential hypertension documented in this encounter Care Teams Appliquer Relationship Specialty Start Date End Date Randi Gomes DO [address] [place] [address] PCP - General Internal Medicine 05/21/23 10/23/23 Randi Gomes DO [address] [place] [address] Resident - PCP Internal Medicine 03/14/23 07/02/24 documented as of this encounter
--- OUTSIDE RECORDS SUMMARY | 2024-08-02 09:59 | XMS_ITS | Encounter Summary ---
Author Organization [facility] Address [address] [place] [address] Care Team Providers Care Cloth Weigher Name Role Phone Randi Gomes DO Unavailable [phone] Randi Gomes DO Primary Care Provider Neil Velasquez MD Primary Care Provider Encounter Details Date Type Department Care Team (Late Contact Info) Description 09/19/2023 Telephone [facility] Scheduling [address] [place] [address] Neil Velasquez MD [address] [facility]?? [place] [address] Social History Tobacco Use Types Packs/Day Years [...] Encounters Date Type Department Care Team (Late Contact Info) Description 12/15/2024 1:00 PM CDT Office Visit [facility] - Internal Med [address] [facility], [place] [address] Neil Velasquez MD [address] [place] [address] documented as of this encounter Visit Diagnoses Not on filedocumented in this encounter Care Teams Cloth Weigher Relationship Specialty Start Date End Date Randi Gomes DO [address] [place] [address] PCP - General Internal Medicine 05/21/23 10/23/23 Neil Velasquez MD [address] [place] [address] PCP - General Internal Medicine 10/24/23 Randi Gomes DO [address] [place] [address] Resident - PCP Internal Medicine 03/14/23 07/02/24 documented as of this encounter
--- OUTSIDE RECORDS SUMMARY | 2024-08-02 09:59 | XMS_ITS | Encounter Summary ---
Author Organization [facility] Address [address] [facility] [place] [address] Care Team Providers Care Insole Cementer Name Role Phone Randi Gomes DO Unavailable [phone] Randi Gomes DO Primary Care Provider [phone] Reason for Visit * Reason Comments Med Change Request Dizziness possible t o meds Encounter Details Date Type Department Care Team (Late st Contact Info) Description 08/14/2023 10:30 AM OLDER ADULT SOCIAL WORK SPECIALIST Office Visit [facility] - Internal Med [facility] [facility] [place] [phone] Essential hypertension (Primary Dx); Hypotension due to medication Social History Tobacco Use Types Packs/Day Years [...] Sign Reading Time Taken Comments Blood Pressure - - Pulse - - Temperature 37 ??C (98.6 ??F) 08/14/2023 10:13 AM OLDER ADULT SOCIAL WORK SPECIALIST Respiratory Rate - - Oxygen Saturation 96% 08/14/2023 10:12 AM OLDER ADULT SOCIAL WORK SPECIALIST Inhaled Oxygen Concentration - - Weight 118.8 kg (262 lb) 08/14/2023 10:12 AM OLDER ADULT SOCIAL WORK SPECIALIST Height 168.9 cm (5' 6.5 ) 08/14/2023 10:12 AM CS T Body Mass Index 41.65 08/14/2023 10:12 AM OLDER ADULT SOCIAL WORK SPECIALIST documented in this encounter Patient Instructions * Patient Instructions* Annabelle Enamorado DO - 08/14/2023 10:15 AM OLDER ADULT SOCIAL WORK SPECIALIST Dear Ms. Damian, You were seen in the acute care clinic for blood pressure management after experiencing dizziness with previous medication changes. We recommend continuing to NOT take nifedipine 60mg as you already were. We are instead adding lisinopril 10mg to your regimen, which you can take in the morning. Your blood pressure medications are now: Carvedilol 25mg twice daily Hydralazine 100mg three times daily Lisinopril-hydrochlorothiazide 20mg-12mg NEW: Lisinopril 10mg to take a total of 30mg daily. We will schedule an appointment to have your blood pressure checked by a nurse here at [facility] in about two weeks. [facility] General Internal Medicine is a Patient Centered Medical Home (PCMH) recognized practice. PCM is a model of care that puts patients at the forefront of care. PCM centers build better relationships between patients and their clinical care teams. Practices that earn this recognition have made a commitment to continuous quality improvement and a patient-centered approach to care. [facility] Internal Medicine is committed to providing you [...] for your doctor, the office phone is [phone]. You will be given options to get [...] primary care provider. Please call us at [phone], option 1, then option 1 in the morning you would like to be seen. Our fax number is [phone]. Instructions for reaching the practice after office hours For urgent concerns that cannot wait until phone lines are open on the next business day, please call [phone] to speak to the covering General Internal Medicine provider. Identify yourself as a patient in our practice and give the minilab operator your doctor's name. The minilab operator will contact the physician sed special education teacher. You can generally expect a return call within 30 minutes. Prescription Refills Contact your pharmacy to request all refills. You may also send a [employer] message for refills. Please allow a minimum of 48-72 hours for your prescription to be completed. Your pharmacy will notify you when your prescription is ready to be picked up. SCHEDULE YOUR OWN APPOINTMENT AT [facility] We are excited to announce that some [facility] appointments can now be scheduled online. If you are not able to access the type of appointment that you need using this service, our [facility] Scheduling department will be happy to continue to serve you. Use one of these options to schedule your next appointment today: Access self-scheduling options by visiting the [facility] Online Scheduling Webpage. Make an appointment by calling [facility] Central [phone] Visit our website at [email or web address] for information about our practice and an interactive health encyclopedia. R ADULT SOCIAL WORK SPECIALIST documented in this encounter Progress Notes * Johnathon Barron [facility] - 08/14/2023 10:48 AM CST Pharmacist Medication Reconciliation Note Date of Service: 08/14/2023 Subjective: Mauricio Flores is an 58 year old female who presents for acute visit . I met with the patient and did medication reconciliation. Medication Reconciliation:Reviewed and updated in Epic Medications tab Current [...] empty stomach. (Patient not taking: Reported on 08/14/2023) 90 tablet 1 ??? VITAMIN D PO (Patient not taking: Reported on 08/14/2023) No current facility-administered medications for this visit. I reconciled the patient's medications during this visit and the above list is accurate. -pt is not compliant with Atorvastatin or Aspirin daily. - pt said Nifedipine made her dizzy that is why she has stopped it .( she said she is here to discuss dizziness due to medication . Johnathon Barron RPH 08/14/2023 R ADULT SOCIAL WORK SPECIALIST * Annabelle Enamorado DO - 08/14/2023 10:23 AM CST [facility] General Internal Medicine Acute Care Patient Note CC: Chief Complaint Patient presents with ??? Med Change Request Dizziness possible to meds Assessment & Plan: Ms. Damian is a 58 year-old female with essential HTN and prediabetes presenting with reported dizziness after medication changes were made to her antihypertensives on 07/11/2023. Initially she did have good control of blood pressure however experienced daily dizziness requiring her to start using her cane so she stopped taking nifedipine. Blood pressure readings following this did increased.In office today, orthostatic testing is positive which is not uncommon with antihypertensives. #Essential hypertension -Continue carvedilol 25 mg BID -Continue hydralazine from 100 mg TID -Continue lisinopril/HCTZ 20-12.5 mg daily -Start lisinopril 10mg daily taken with lisinopril/HCTZ 20-12.5 mg for a total of 30mg lisinopril -Follow up with a nursing visit for blood pressure check in about two weeks Patient discussed with attending physician, Dr. French, who agrees with my assessment and plan. Follow up with PCP is scheduled on 10/10/2022. History of Present Illness: Mauricio Flores is a 58 year old female presenting to [facility] clinic for dizziness following medication changes done on 07/11/2023. Her current regimen is: -Carvedilol 25 mg BID (continued at last visit) -Hydralazine from 100 mg TID (increased from 75mg TID) -Lisinopril/HCTZ 20-12.5 mg daily (takes in AM) [lisinopril 40mg was stopped at previous visit] -Nifedipine 60 mg daily which was stopped by patient about two weeks ago and dizziness resolved She has experiencing dizziness in the morning so stopped taking nifedipine for about the past two weeks and dizziness has resolved. Never passed out or never lost consciousness. She felt the dizziness primarily in the morning after taking her morning medications and was happening when she was walking. It was not associated with positional changes. Appetite is okay - breakfast is cereal or lott/sausage/egg sandwich and lung and dinner is varied with protein. Makes effort to drink water. 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 Did not experience palpitations or shortness of breath. Has been using her cane but prior to medication changes, she ambulated without assistance. She broughta list of blood pressure readings since the changes and initially had much improved readings (120s-130s systolics) and following the cessation of nifedipine, pressures did show a rebound increase to being in the 140s systolic and sometimes 150s. Past Medical/Surgical/Family/Social History: Reviewed and updated in [facility] History tab Medications: Reviewed and updated in [facility] Medications tab Current Outpatient Medications Medication [...] in Epic Allergies tab Review of Systems: ROS reviewed and negative other than HPI. Physical Exam: Temp 98.6 ??F (37 ??C) (Temporal) Ht 1.689 m (5' 6.5 ) Wt 118.8 kg (262 lb) SpO2 96% Orthostatic Vitals: 08/14/2023 08/14/2023 BP: 145/73 119/72 Position: SITTING STANDING Extremity: LEFT ARM LEFT ARM Pulse: 53 61 Physical Exam Constitutional: Appearance: Normal appearance. HENT: Head: Normocephalic and atraumatic. Nose: Nose normal. Mouth/Throat: Mouth: Mucous membranes are moist. Pharynx: Oropharynx is clear. Eyes: Extraocular Movements: Extraocular movements intact. Conjunctiva/sclera: Conjunctivae normal. Cardiovascular: Rate and Rhythm: Normal rate and regular rhythm. Pulses: Normal pulses. Heart sounds: Normal heart sounds. Pulmonary: Effort: Pulmonary effort is normal. No respiratory distress. Breath sounds: Normal breath sounds. Abdominal: General: Bowel sounds are normal. There is no distension. Palpations: Abdomen is soft. Musculoskeletal: General: No swelling. Normal range of motion. Cervical back: Normal range of motion and neck supple. Right lower leg: No edema. Left lower leg: No edema. Comments: Using cane for ambulation Skin: General: Skin is warm and dry. Neurological: General: No focal deficit present. Mental Status: She is alert. Psychiatric: Mood and Affect: Mood normal. Behavior: Behavior normal. Labs: Personally reviewed. Imaging/Other diagnostic testing: Personally reviewed. Lab Preference: [facility] [address] [facility] [address] Annabelle Enamorado DO 08/14/2023 R ADULT SOCIAL WORK SPECIALIST Associated attestation - Santhosh French MD - 08/14/2023 8:59 PM OLDER ADULT SOCIAL WORK SPECIALIST Attending Physician Attestation I saw and examined the patient with the resident, and I agree with the resident's history, physicalexam, and assessment and plan. Date of Service: 08/14/2023 Santhosh French MD documented in this encounter Plan of Treatment Upcoming Encounters Date Type Department Care Team (Late st Contact Info) Description 12/15/2024 1:00 PM CDT Office Visit [facility] - Internal Med [address] [facility], [place] [address] Neil Velasquez MD [address] [facility]?? [place] [address] documented as of this encounter Visit Diagnoses Diagnosis Essential hypertension- Primary Hypotension due to medication documented in this encounter Care Teams Insole Cementer Relationship Specialty Start Date End Date Randi Gomes DO [address] [place] [address] PCP - General Internal Medicine 05/21/23 10/23/23 Randi Gomes DO [address] [place] [address] Resident - PCP Internal Medicine 03/14/23 07/02/24 documented as of this encounter
--- OUTSIDE RECORDS SUMMARY | 2024-08-02 09:59 | XMS_ITS | Encounter Summary ---
Author Organization [facility] Health Address [address] [place] [address] Care Team Providers Care Professor Of Family Medicine Name Role Phone Randi Gomes DO Unavailable [phone] Randi Gomes DO Primary Care Provider Encounter Details Date Type Department Care Team (Latest Contact Info) Description 07/12/2023 Travel Social History Tobacco Use Types Packs/Day [...] [facility] - [facility] Med [address] [facility], [place] [address] Neil Velasquez MD [address] [facility] [place] [address] documented as of this encounter Visit Diagnoses Not on filedocumented in this encounter Care Teams Professor Of Family Medicine Relationship Specialty Start Date End Date Randi Gomes DO [address] [place] [address] PCP - General Internal Medicine 05/21/23 10/23/23 Randi Gomes DO [address] [place] [address] Resident - PCP Internal Medicine 03/14/23 07/02/24 documented as of this encounter
--- OUTSIDE RECORDS SUMMARY | 2024-08-02 09:59 | XMS_ITS | Encounter Summary ---
Author Organization [facility] Address [address] [facility] [place] [address] Care Team Providers Care Electrician Apprentice Powerhouse Name Role Phone Ronald Casarez MD Primary Care Provider [phone] Randi Gomes DO Unavailable [phone] Reason for Visit * Reason Onset Date Comments Appointment 05/15/2023 Blood Pressure 05/15/2023 Encounter Details Date Type Department Care Team (Late st Contact Info) Description 05/15/2023 Telephone [facility] - Internal Med [address] [facility], [place] [phone] Randi Gomes DO [address] [facility] [place], [place] [id number] Appointment; Blood Pressure Social History Tobacco Use Types Packs/Day Years [...] encounter Miscellaneous Notes * Telephone Encounter - Kathy Mina RN - 05/15/2023 1:27 PM CDT FYI: Pt calling back in to schedule visit or blood pressure check. Per Dr Gomes schedule visit with her or one of the residents. Elinor with scheduling dept will offer an appt with resident Dr John who has availability. Pt scheduled appt with Dr John on 05/21/23 at 1:[address] Gomes for the bp check. * Telephone Encounter - Stephanie Hernandez RN - 05/15/2023 9:51 AM CDT Attempt #1; Called & LVM to call office number to make appt to check on B/P . * Telephone Encounter - Shelbie Turner LPN - 05/15/2023 9:43 AM CDT Randi Gomes DO Caller: Unspecified (Today, 12:10 AM) Patient is due for a follow up appointment to address her blood pressure. Please call patient to schedule an appointment with me (or another resident). Thank you! ?? Previous Messages documented in this encounter Plan of Treatment Upcoming Encounters Date Type Department Care Team (Late st Contact Info) Description 12/15/2024 1:00 PM CDT Office Visit [facility] - Internal Med [address] [facility], [place] [phone] Neil Velasquez MD [address] [facility] [place] [address] documented as of this encounter Visit Diagnoses Not on filedocumented in this encounter Care Teams Electrician Apprentice Powerhouse Relationship Specialty Start Date End Date Ronald Casarez MD [address] [place] [phone] PCP - General Internal Medicine 12/06/22 05/20/23 Randi Gomes DO [address] [facility] [place] [address] Resident - PCP Internal Medicine 03/14/23 07/02/24 documented as of this encounter
--- OUTSIDE RECORDS SUMMARY | 2024-08-02 09:59 | XMS_ITS | Encounter Summary ---
Author Organization [facility] Health Address [address] [place] [address] Care Team Providers Care Systems Mechanic Name Role Phone Randi Gomes DO Unavailable Randi Gomes DO Primary Care Provider Encounter Details Date Type Department Care Team (Latest Contact Info) Description 08/09/2023 Travel Social History Tobacco Use Types Packs/Day [...] [facility] [address] [facility], [place] [phone] Neil Velasquez MD [address] [facility] [place] [address] documented as of this encounter Visit Diagnoses Not on filedocumented in this encounter Care Teams Systems Mechanic Relationship Specialty Start Date End Date Randi Gomes DO [address] [place] [address] PCP - General Internal Medicine 05/21/23 10/23/23 Randi Gomes DO [address] [place] [address] Resident - PCP Internal Medicine 03/14/23 07/02/24 documented as of this encounter
--- OUTSIDE RECORDS SUMMARY | 2024-08-02 10:00 | XMS_ITS | Encounter Summary ---
Author Organization [facility] Health Address [address] [place] [address] Care Team Providers Care Acute Care Clinical Nurse Specialist Name Role Phone Rosalee Cano MD Unavailable Ronald Casarez MD Primary Care Provider Randi Gomes DO Unavailable [phone] Encounter Details Date Type Department Care Team (Latest Contact Info) Description 03/14/2023 Travel Social History Tobacco Use Types Packs/Day [...] [facility] [address] [facility], [place] [phone] Neil Velasquez MD [address] [facility] [place] [address] documented as of this encounter Visit Diagnoses Not on filedocumented in this encounter Care Teams Acute Care Clinical Nurse Specialist Relationship Specialty Start Date End Date Ronald Casarez MD [address] [place] [phone] PCP - General Internal Medicine 12/06/22 05/20/23 Rosalee Cano MD [address] DIV [place] [address] Resident Internal Medicine 12/02/21 03/20/23 Randi Gomes DO [address] [place] [address] Resident - PCP Internal Medicine 03/14/23 07/02/24 documented as of this encounter
--- OUTSIDE RECORDS SUMMARY | 2024-08-02 10:00 | XMS_ITS | Encounter Summary ---
Author Organization [facility] Health Address [address] [facility] [place] [address] Care Team Providers Care Hotel Reservation Agent Name Role Phone Rosalee Cano MD Unavailable Rosalee Cano MD Unavailable Ronald Casarez MD Primary Care Provider Reason for Visit * Reason Onset Date Comments MEDICATION REFILL 02/21/2023 Encounter Details Date Type Department Care Team (Late Contact Info) Description 02/21/2023 Refill [facility] - Internal Med [address] [place] [phone] Ronald Casarez MD [address] [place] [address] MEDICATION REFILL Social History Tobacco Use Types Packs/Day Years Used Date Smoking Tobacco: Never Smokeless Tobacco: Never Alcohol Use Standard Drinks/Week Comments Yes 1 (1 standard drink = 0.6 oz pur e alcohol) socially PHQ-2 Answer Date Recorded PHQ2 TOTAL SCORE 0 11/22/2022 Sex and Gender Information Value Date Recorded Sex Assigned at Not on file Gender Identity Not on file Sexual Orientation Not on file documented as of this encounter Plan of Treatment Upcoming Encounters Date Type Department Care Team (Late Contact Info) Description 12/15/2024 1:00 PM CDT Office Visit [facility] - [facility] Med [address] [facility] [place] [address] Neil Velasquez MD [address] [facility] [place] [address] documented as of this encounter Visit Diagnoses Not on filedocumented in this encounter Care Teams Hotel Reservation Agent Relationship Specialty Start Date End Date Ronald Casarez MD [address] [place] [address] PCP - General Internal Medicine 12/06/22 05/20/23 Rosalee Cano MD [address] [place] [address] Resident Internal Medicine 12/02/21 03/20/23 Rosalee Cano MD [address] [place] [address] Resident - PCP Internal Medicine 02/20/22 03/13/23 documented as of this encounter
--- OUTSIDE RECORDS SUMMARY | 2024-08-02 10:00 | XMS_ITS | Encounter Summary ---
Author Organization [facility] Health Address [address] [facility] [place] [address] Care Team Providers Care Processing Rep Name Role Phone Ronald Casarez MD Primary Care Provider Randi Gomes DO Unavailable [phone] Reason for Visit * Reason Onset Date Comments MEDICATION REFILL 03/21/2023 Encounter Details Date Type Department Care Team (Late st Contact Info) Description 03/21/2023 Refill [facility] - Internal Med [address] [facility], [place] [phone] Randi Gomes, [address] [facility]?? [place], [place] [id number] MEDICATION REFILL Social History Tobacco Use Types [...] Telephone Encounter - Shelbie Turner LPN - 03/21/2023 1:03 PM CDT Refill Request Mauricio Flores Recent Visits Date Type Provider Dept 03/14/23 Office Visit Randi Gomes DO [facility] 11/22/22 Office Visit Rosalee Cano MD [facility] 11/16/21 Office Visit Rosalee Cano MD [facility] Showing recent visits within past 540 days with a meds authorizing provider and meeting all other requirements Future Appointments Date Type Provider Dept 04/25/23 Appointment Randi Gomes DO [facility] Showing future appointments within next 150 days with a meds authorizing provider and meeting all other requirements Last Refill: 02.27.23 Allergies: Allergies Allergen Reactions ??? Hydrocodone-Acetaminophen Rash Vicodin ??? [place] Itching Pended Medication Order: Requested Prescriptions Pending Prescriptions Disp Refills ??? carvedilol (Coreg) 25 MG tablet 60 tablet 0 Sig: Take 1 (one) tablet by mouth 2 times daily with morning and evening meal documented in this encounter Plan of Treatment Upcoming Encounters Date Type Department Care Team (Late st Contact Info) Description 12/15/2024 1:00 PM CDT Office Visit [facility] - Internal Med [address] [facility] [place] [address] Neil Velasquez MD [address] [facility] [place] [address] documented as of this encounter Visit Diagnoses Diagnosis Essential hypertension documented in this encounter Care Teams Processing Rep Relationship Specialty Start Date End Date Ronald Casarez MD [address] [place] [id number] PCP - General Internal Medicine 12/06/22 05/20/23 Randi Gomes DO [address] [facility]?? [place] [address] Resident - PCP Internal Medicine 03/14/23 07/02/24 documented as of this encounter
--- OUTSIDE RECORDS SUMMARY | 2024-08-02 10:00 | XMS_ITS | Encounter Summary ---
Author Organization [facility] Health Address [address] [facility] [place] [address] Care Team Providers Care Inside Barrel Lathe Operator Name Role Phone Rosalee Cano MD Primary Care Provider [phone] Reason for Visit * Radiology Services (Routine) - Closed Specialty Diagnoses / Procedures Referred By Contac t Referred To Contact Echosonography Diagnoses Pericardial cyst (HCC) Procedures ECHO COMPLETE Lacy Mendoza DO [address] [facility] [address] DIV OF [facility] [place] [address] [facility] Echo [address] [place] [address] Referral ID Status Reason Start Date Expiration Date Visits Re quested Visits Authorized [id number] Closed 04/06/2021 04/06/2022 1 1 Encounter Details Date Type Department Care Team (Latest Contact Info) Description 05/04/2021 2:00 PM CDT - 05/04/2021 11:59 PM CDT Hospital Encounter [facility] ECHO [address] [place] [address] Lacy Mendoza DO [address] [facility] [address] DIV OF [facility] [place] [address] Discharge Disposition: Home or Self Care Social History Tobacco Use Types Packs/Day Years Used Date Smoking Tobacco: Never Smokeless Tobacco: Never Alcohol Use Standard Drinks/Week Comments Yes 1 (1 standard drink = 0.6 oz pur e alcohol) socially Sex and Gender Information Value Date Recorded Sex Assigned at Not on file Gender Identity Not on file Sexual Orientation Not on file COVID-19 Exposure Response Date Recorded In the last month, have you been in contact with someone who was confirmed or suspected to have Coronavirus / COVID-19? No / Unsure 05/04/2021 2:02 PM CDT documented as of this encounter Medications at Time of Discharge Medication Sig Dispensed Refills Start Date End Date Ascorbic Acid (ALPHONSE-C PO) aspirin (ASPIRIN) 81 MG tablet 100 tablet 04/06/2016 Glucose Blood (BLOOD GLUCOSE TEST STRIPS) STRP Use 1 strip TID. 100 strip 11 07/03/2017 LANCETS SUPER THIN 28G MISC Use TID. 100 11 03/13/2017 VITAMIN D PO atorvastatin (LIPITOR) 40 MG tabletIndications:Hyper lipidemia, unspecified hyperlipidemia type Take 1 (one) tablet by mouth at bedtime 90 tablet 1 08/30/2020 11/16/2021 bisacodyl EC (DULCOLAX) 5 MG tablet Take all 4 tablets at noon the day before your colonoscopy. 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) by Apply externally route 3 times daily 04/06/2021 05/21/2023 carvedilol (COREG) 25 MG tabletIndications:Essen tial hypertension Take 1 (one) tablet by mouth 2 times daily with morning and evening meal 60 tablet 1 04/06/2021 06/08/2021 ferrous sulfate 325 (65 FE) MG tabletIndications:Iron deficiency anemia, unspecified iron deficiency anemia type Take 1 (one) tablet by mouth 2 times daily with morning and evening meal 60 tablet 4 04/06/2021 08/24/2021 gabapentin (NEURONTIN) 100 MG capsuleIndications: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) Take 1 (one) capsule by mouth 3 times daily 90 capsule 4 04/06/2021 09/30/2021 glipiZIDE (GLUCOTROL) 5 MG tabletIndications: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) Take 1 (one) tablet by mouth 2 times daily, before breakfast and supper 180 tablet 2 12/29/2020 11/16/2021 hydrALAZINE (APRESOLINE) 25 MG tabletIndications:Essen tial hypertension Take 1 (one) tablet by mouth 3 times daily FOR BLOOD PRESSURE 270 tablet 4 04/06/2021 06/22/2021 hydrALAZINE (APRESOLINE) 50 MG tabletIndications:Essen tial hypertension Take 1 (one) tablet by mouth 3 times daily 90 tablet 04/06/2021 05/05/2021 lisinopril (PRINIVIL; ZESTRIL) 40 MG tablet Take 1 (one) tablet by mouth once daily 90 tablet 1 02/16/2021 08/23/2021 polyethylene glycol 3350 (MIRALAX) 17 GM/SCOOP powder Mix entire bottle with 64oz of clear liquid. Drink 1/2 of mixture at 5pm the night before colonoscopy, 1/2 at 4am the day of colonoscopy. 238 g 11/29/2020 03/14/2023 documented as of this encounter Plan of Treatment Upcoming Encounters Date Type Department Care Team (Late st Contact Info) Description 12/15/2024 1:00 PM CDT Office Visit [facility] - Internal Med [address] [facility], [place] [address] Neil Velasquez MD [address] [facility] 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
--- OUTSIDE RECORDS SUMMARY | 2024-08-02 10:00 | XMS_ITS | Encounter Summary ---
Author Organization [facility] Health Address [address] [facility] [place] [address] Care Team Providers Care Paraprofessional Aide Teacher Name Role Phone Rosalee Cano MD Primary Care Provider [phone] Reason for Visit * Reason Onset Date Comments MEDICATION REFILL 06/08/2021 Encounter Details Date Type Department Care Team (Late st Contact Info) Description 06/08/2021 Refill [facility] [address] [facility], [facility] [place] [address] Angel Bedoya, DO [address] [place] [phone] MEDICATION REFILL Social History Tobacco Use Types [...] encounter Miscellaneous Notes * Telephone Encounter - Lucia Perry RN - 06/08/2021 11:24 AM CDT Refill Request Mauricio Flores NEREIDA: 04/06/21 NOV scheduled: 11/09/2021 LRF: 04/06/21 Qty Disp: 60 # of refills: 1 Allergies: Allergies Allergen Reactions ??? Hydrocodone-Acetaminophen Rash Vicodin ??? [place] Itching Pended Medication Order: Requested Prescriptions Pending Prescriptions Disp Refills ??? carvedilol (COREG) 25 MG tablet 60 tablet 1 Sig: Take 1 (one) tablet by mouth 2 times daily with morning and evening meal documented in this encounter Plan of Treatment Upcoming Encounters Date Type Department Care Team (Late st Contact Info) Description 12/15/2024 1:00 PM CDT Office Visit [facility] - Internal Med [facility] [facility], [place] [phone] Neil Velasquez MD [address] [facility] [place] [address] documented as of this encounter Visit Diagnoses Diagnosis Essential hypertension documented in this encounter Care Teams Paraprofessional Aide Teacher Relationship Specialty Start Date End Date Rosalee Cano MD [facility] [facility] 2L DIV OF [facility] [place] [address] PCP - General 05/04/21 12/01/21 documented as of this encounter
--- OUTSIDE RECORDS SUMMARY | 2024-08-02 10:00 | XMS_ITS | Encounter Summary ---
Author Organization [facility] Health Address [address] [facility] [place] [address] Care Team Providers Care Cook Fruit Name Role Phone Rosalee Cano MD Primary Care Provider [phone] Reason for Visit * Reason Onset Date Comments Echocardiogram 05/05/2021 Encounter Details Date Type Department Care Team (Late st Contact Info) Description 05/05/2021 Telephone [facility] [address] [place] [address], [place] [phone] Rosalee Cano MD [address] [place] [address] OF [facility] [place] [address] Echocardiogram Social History Tobacco Use Types Packs/Day Years [...] PM CDT documented as of this encounter Miscellaneous Notes * Telephone Encounter - Stacy Snow RN - 05/10/2021 10:33 AM CDT Images from the original note were not included. Angel Bedoya, DO You; Rosalee Cano MD 6 minutes ago (10:27 AM) RP I'll give her a call regarding the results when I have time today. Message text * Telephone Encounter - Stacy Snow RN - 05/10/2021 10:13 AM CDT Pt calling back asking for her Echo results. CB: [phone] * Telephone Encounter - Chris Roche RN - 05/05/2021 3:36 PM CDT Pt called to get the results of the echo cardiogram completed 05.04.21. Okay to share the results? Any new orders? Please advise documented in this encounter Plan of Treatment Upcoming Encounters Date Type Department Care Team (Late st Contact Info) Description 12/15/2024 1:00 PM CDT Office Visit [facility] - Internal Med [address] [place] [address] Neil Velasquez MD [address] [place] [address] documented as of this encounter Visit Diagnoses Not on filedocumented in this encounter Care Teams Cook Fruit Relationship Specialty Start Date End Date Rosalee Cano MD [address] DIV [place] [address] PCP - General 05/04/21 12/01/21 documented as of this encounter
--- OUTSIDE RECORDS SUMMARY | 2024-08-02 10:00 | XMS_ITS | Encounter Summary ---
Author Organization [facility] Health Address [address] [facility] [place] [address] Care Team Providers Care Senior Instructional Designer Name Role Phone Rosalee Cano MD Primary Care Provider [phone] Reason for Visit * Reason Onset Date Comments MEDICATION REFILL 06/15/2021 Encounter Opened In Error 06/15/2021 Encounter Details Date Type Department Care Team (Late st Contact Info) Description 06/15/2021 Refill [facility] [address] [place] [address], [place] [phone] Rosalee Cano MD [address] [place] [address] [address] [facility] OF [facility] [place] [place] [address] MEDICATION REFILL; Encounter Opened In Error Social History Tobacco Use Types Packs/Day Years [...] encounter Miscellaneous Notes * Telephone Encounter - Suad Ingram RN - 06/15/2021 12:04 PM CDT Mauricio Flores encounter was opened in error. Please disregard any activity associated with this encounter. documented in this encounter Plan of Treatment Upcoming Encounters Date Type Department Care Team (Late st Contact Info) Description 12/15/2024 1:00 PM CDT Office Visit [facility] - Internal Med [address] [facility], [place] [address] Neil Velasquez MD [address] [facility] [place] [address] documented as of this encounter Visit Diagnoses Diagnosis ERRONEOUS ENCOUNTER--DISREGARD- Primary documented in this encounter Care Teams Senior Instructional Designer Relationship Specialty Start Date End Date Rosalee Cano MD [address] [place] [address] [address] [place] [address] PCP - General 05/04/21 12/01/21 documented as of this encounter
--- OUTSIDE RECORDS SUMMARY | 2024-08-02 10:00 | XMS_ITS | Encounter Summary ---
Author Organization [facility] Address [address] [place] [address] Care Team Providers Care Manager Core Name Role Phone Rosalee Cano MD Unavailable [phone] Rosalee Cano MD Unavailable [phone] Ronald Casarez MD Primary Care Provider Reason for Visit * Reason Comments Follow-up Encounter Details Date Type Department Care Team (Late st Contact Info) Description 02/27/2023 9:30 AM CDT Office Visit [facility] - Internal Med [address] [place] [address] [place] [id number] Essential hypertension (Primary Dx) Social History Tobacco Use Types [...] Sign Reading Time Taken Comments Blood Pressure 152/61 02/27/2023 9:30 AM CDT Pulse 58 02/27/2023 9:30 AM CDT Temperature 36.3 ??C (97.3 ??F) 02/27/2023 9:30 AM CD T Respiratory Rate - - Oxygen Saturation 97% 02/27/2023 9:30 AM CDT Inhaled Oxygen Concentration - - Weight 122.5 kg (270 lb) 02/27/2023 9:30 AM CDT Height 167.6 cm (5' 6 ) 02/27/2023 9:30 AM CDT Body Mass Index 43.58 02/27/2023 9:30 AM CDT documented in this encounter Patient Instructions * Patient Instructions* Gus Rogers - 02/27/2023 9:32 AM CDT [facility] is a Patient Centered Medical Home (PCMH) recognized practice. PCMH is a model of care that puts patients at the forefront of care. PCM centers build better relationships between patients and their clinical care teams. Practices that earn this recognition have made a commitment to continuous quality improvement and a patient-centered approach to care. [facility] is committed to providing [...] for your doctor, the office phone is [phone]. You will be given options to get [...] primary care provider. Please call us at [phone], option 1, then option 1 in the morning you would like to be seen. Our fax number is [phone]. Instructions for reaching the practice after office hours For urgent concerns that cannot wait until phone lines are open on the next business day, please call [phone] to speak to the covering General Internal Medicine provider. Identify yourself as a patient in our practice and give the quarry plant crusher operator your doctor's name. The quarry plant crusher operator will contact the physician watch repair person. You can generally expect a return call within 30 minutes. Prescription Refills Contact your pharmacy to request all refills. You may also send a eDossea message for refills. Please allow a minimum of 48-72 hours for your prescription to be completed. Your pharmacy will notify you when your prescription is ready to be picked up. SCHEDULE YOUR OWN APPOINTMENT AT [facility] We are excited to announce that some [facility] appointments can now be scheduled online. If you are not able to access the type of appointment that you need using this service, our [facility] Scheduling department will be happy to continue to serve you. Use one of these options to schedule your next appointment today: Access self-scheduling options by visiting the [facility] Online Scheduling Webpage. Make an appointment by calling [facility] Central [phone] Visit our website at [email or web address] for information about our practice and an interactive health encyclopedia. documented in this encounter Progress Notes * Santhosh French MD - 02/27/2023 10:24 AM CDT Acute Care visit Hypertension Stopped lisinopril hctz due to urinary frequency Resolved off hctz Not carefully restricting salt History of CVA BP 152/61 (BP SITE: LEFT ARM, BP POSITION: SITTING) Pulse 58 Temp 97.3 ??F (36.3 ??C) Ht 1.676 m (5' 6 ) Wt 122.5 kg (270 lb) SpO2 97% Lungs clear Heart with irreg irreg rhythm. No gallop. Abdomen with normal bowel sounds. No bruit Trace edema. Essential hypertension - Plan: carvedilol (Coreg) 25 MG tablet, COMPREHENSIVE METABOLIC PANEL, lisinopril (Prinivil; Zestril) 20 MG tablet, URINALYSIS W/MICROSCOPIC NO CULTURE Uncontrolled hypertension Restart lisinopril Restrict salt Last labs in 2020. CMP and UA Continue carvedilol 25 bid and hydralazine 75 tid. Follow up in [place] with Dr Casarez team in 2-3 weeks. * Selwyn Hyde MD - 02/27/2023 9:31 AM CDT [facility] General Internal Medicine Acute Care Patient Note CC: Chief Complaint Patient presents with ??? Follow-up Assessment & Plan: # Uncontrolled Hypertension # Hx of TIA The patient has a longstanding history of HTN. She is on home treatment with Lisinopril/HCTZ, Carvedilol, and Hydralazine. She has not complied with her Lisinopril/HCTZ due to urinary incontinence. BP at home has been elevated. The patient is asymptomatic. Recheck BP was 190/90 mmHg. Plan: - Lisinopril 20 mg PO QD - Urinalysis with microscopy - CMP - BP Log - Follow up with PCP Patient discussed with attending physician, Dr. French, who agrees with my assessment and plan. Follow up with PCP in 2-3 weeks. Note routed to PCP. History of Present Illness: Mauricio Flores is a 57 year old female presenting to GI clinic for elevated blood pressure. Patient with PMH of HTN, DM type 2, HDL, remote Hx of TIA.The on home treatment with Lisinorpil/HCTZ, Carvedilol and Hydralazine. She stated not being complaint with the Lisinopril and HCTZ since November due to inability to hold the urine. BP at home 190-200 and 100-110 mmHg. She states not having associated symptoms. Denies fever, nausea, vomiting, cough, lightheadedness, syncope, chest pain, palpitations, shortness of breath, abdominal pain or edema. Past Medical/Surgical/Family/Social History: Reviewed and updated in [facility] History tab Medications: Reviewed and updated in [facility] Medications tab Current Outpatient Medications Medication Sig Dispense Refill ??? Ascorbic Acid (ALPHONSE-C PO) ??? aspirin (ASPIRIN) 81 MG tablet 100 tablet ??? atorvastatin (Lipitor) 40 MG tablet Take 1 (one) tablet by mouth at bedtime (Patient not taking: Reported on 02/27/2023) 90 tablet 1 ??? bisacodyl EC (DULCOLAX) 5 MG tablet Take all 4 tablets at noon the day before your colonoscopy.4 tablet 0 ??? Blood Glucose Monitoring Suppl (ACCU-CHEK GUIDE) w/Device KIT ??? Capsaicin 0.025 % by Apply externally route 3 times daily ??? carvedilol (Coreg) 25 MG tablet Take 1 (one) tablet by mouth 2 times daily with morning and evening meal 60 tablet 5 ??? ferrous sulfate 325 (65 FE) MG tablet Take 1 (one) tablet by mouth 2 times daily with morning and evening meal 60 tablet 4 ??? gabapentin (NEURONTIN) 100 MG capsule Take 1 (one) capsule by mouth 3 times daily 90 capsule 5 ??? Glucose Blood (BLOOD GLUCOSE TEST STRIPS) STRP Use 1 strip TID. 100 strip 11 ??? hydrALAZINE (Apresoline) 25 MG tablet Take 1 (one) tablet by mouth 3 times daily FOR BLOOD PRESSURE 270 tablet 4 ??? hydrALAZINE (Apresoline) 50 MG tablet Take 1 (one) tablet by mouth 3 times daily 270 tablet 0 ??? LANCETS SUPER THIN 28G MISC Use TID. 100 11 ??? lisinopril-hydroCHLOROthiazide (Prinzide; Zestoretic) 20-12.5 MG tablet Take 1 (one) tablet by mouth once daily (Patient not taking: Reported on 02/27/2023) 30 tablet 4 ??? lisinopril-hydroCHLOROthiazide (Prinzide; Zestoretic) 10-12.5 MG tablet Take 1 (one) tablet by mouth once daily (Patient not taking: Reported on 02/27/2023) 100 tablet 4 ??? polyethylene glycol 3350 (MIRALAX) 17 GM/SCOOP powder Mix entire bottle with 64oz of clear liquid. Drink 1/2 of mixture at 5pm the night before colonoscopy, 1/2 at 4am the day of colonoscopy. 238g 0 ??? VITAMIN D PO No current facility-administered medications for this visit. Allergies: Reviewed and updated in Epic Allergies tab Review of Systems: Review of Systems All other systems reviewed and are negative. Physical Exam: BP 152/61 (BP SITE: LEFT ARM, BP POSITION: SITTING) Pulse 58 Temp 97.3 ??F (36.3 ??C) Ht 1.676 m (5' 6 ) Wt 122.5 kg (270 lb) SpO2 97% Physical Exam Vitals reviewed. Constitutional: Appearance: Normal appearance. She is obese. HENT: Head: Normocephalic and atraumatic. Right Ear: External ear normal. Left Ear: External ear normal. Nose: Nose normal. Mouth/Throat: Mouth: Mucous membranes are moist. Pharynx: Oropharynx is clear. Eyes: Extraocular Movements: Extraocular movements intact. Conjunctiva/sclera: Conjunctivae normal. Pupils: Pupils are equal, round, and reactive to light. Cardiovascular: Rate and Rhythm: Normal rate and regular rhythm. Pulses: Normal pulses. Heart sounds: Normal heart sounds. Pulmonary: Effort: Pulmonary effort is normal. Breath sounds: Normal breath sounds. Abdominal: General: Abdomen is flat. Bowel sounds are normal. Palpations: Abdomen is soft. Musculoskeletal: General: Normal range of motion. Cervical back: Normal range of motion. Skin: General: Skin is warm and dry. Capillary Refill: Capillary refill takes less than 2 seconds. Neurological: General: No focal deficit present. Mental Status: She is alert and oriented to person, place, and time. Mental status is at baseline. Psychiatric: Mood and Affect: Mood normal. Behavior: Behavior normal. Thought Content: Thought content normal. Judgment: Judgment normal. Labs: Personally reviewed. Pertinent for: Elevated serum glucose and microalbuminria in 01/2021 Lab Preference: [facility] [address] [place] [address] Selwyn Hyde MD PGY2 Internal medicine Resident [facility] 02/27/2023 Billing Guide Associated attestation - Santhosh French MD - 02/27/2023 9:05 PM CDT Attending Physician Attestation I saw and examined the patient with the resident, and I agree with the resident's history, physicalexam, and assessment and plan. Date of Service: 02/27/2023 Santhosh French MD documented in this encounter Plan of Treatment Upcoming Encounters Date Type Department Care Team (Late st Contact Info) Description 12/15/2024 1:00 PM CDT Office Visit [facility] - Internal Med [address] [facility], [place] [address] Neil Velasquez MD [address] [facility] [place] [address] Scheduled Orders Name Type Priority Associated Diagnoses Orde r Schedule COMPREHENSIVE METABOLIC PANEL Lab Routine Essential hypertension Ordered: 02/27/2023 URINALYSIS W/MICROSCOPIC NO CULTURE Lab Routine Essential hypertension Ordered: 02/27/2023 documented as of this encounter Visit Diagnoses Diagnosis Essential hypertension- Primary documented in this encounter Care Teams Manager Core Relationship Specialty Start Date End Date Ronald Casarez MD [address] [place] [address] PCP - General Internal Medicine 12/06/22 05/20/23 Rosalee Cano MD [address] DIV OF [facility] [place] [address] Resident Internal Medicine 12/02/21 03/20/23 Rosalee Cano MD [address] OF [facility] [place] [address] Resident - PCP Internal Medicine 02/20/22 03/13/23 documented as of this encounter
--- OUTSIDE RECORDS SUMMARY | 2024-08-02 10:00 | XMS_ITS | Encounter Summary ---
Author Organization [facility] Health Address [address] [facility] [place] [address] Care Team Providers Care Weaver Dobby Loom Name Role Phone Rosalee Cano MD Primary Care Provider [phone] Reason for Visit * Reason Onset Date Comments MEDICATION REFILL 09/20/2021 MEDICATION REFILL 09/21/2021 Encounter Details Date Type Department Care Team (Late st Contact Info) Description 09/20/2021 Refill [facility] General Internal Medicine [address] [place] [address], [place] [address] Rosalee Cano MD [address] [place] [address] OF [facility] [place] [address] MEDICATION REFILL; MEDICATION REFILL Social History Tobacco Use Types [...] Telephone Encounter - Kathy Mina RN - 09/20/2021 4:28 PM CST Refill Request Mauricio Flores NEREIDA: 03/17/21 NOV scheduled: 11/16/2021 LRF:08/19/21 Qty Disp: 90 # of refills: 0 Allergies: Allergies Allergen Reactions ??? Hydrocodone-Acetaminophen Rash Vicodin ??? [place] Itching Pended Medication Order: Requested Prescriptions Pending Prescriptions Disp Refills ??? hydrALAZINE (APRESOLINE) 50 MG tablet 90 tablet 0 Sig: Take 1 (one) tablet by mouth 3 times daily ET LIGHT WIRER documented in this encounter Plan of Treatment Upcoming Encounters Date Type Department Care Team (Late st Contact Info) Description 12/15/2024 1:00 PM CDT Office Visit [facility] - Internal Med [address] [facility], [place] [phone] Neil Velasquez MD [address] [facility] [place] [address] documented as of this encounter Visit Diagnoses Diagnosis Essential hypertension documented in this encounter Care Teams Weaver Dobby Loom Relationship Specialty Start Date End Date Rosalee Cano MD [facility] [facility] [address] DIV OF [facility] [place] [address] PCP - General 05/04/21 12/01/21 documented as of this encounter
--- OUTSIDE RECORDS SUMMARY | 2024-08-02 10:00 | XMS_ITS | Encounter Summary ---
Author Organization [facility] Health Address [address] [place] [address] Care Team Providers Care Hairspring Staker Name Role Phone Rosalee Cano MD Primary Care Provider [phone] Encounter Details Date Type Department Care Team (Late st Contact Info) Description 04/06/2021 Orders Only [facility] General Internal Medicine [address] [place] [id number] Angel Bedoya DO [address] [place] [phone] Pericardial cyst (HCC) Social History Tobacco Use [...] [facility] Med [address] [place] [id number] Neil Velasquez MD [address] [facility] 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
--- OUTSIDE RECORDS SUMMARY | 2024-08-02 10:00 | XMS_ITS | Encounter Summary ---
Author Organization [facility] Health Address [address] [place] [address] Care Team Providers Care Carrot Grader Inspector Name Role Phone Rosalee Cano MD Primary Care Provider [phone] Reason for Visit * Reason Comments Follow-up Encounter Details Date Type Department Care Team (Late st Contact Info) Description 11/16/2021 3:00 PM CDT Office Visit [facility] [address] [place] [address], [place] [address] Rosalee Cano MD [address] [place] [address] OF [facility] [place] [address] Type 2 diabetes mellitus with complication, without long-term current use of insulin (HCC) (Primary Dx); Hyperlipidemia, unspecified hyperlipidemia type; Pericardial cyst (HCC); 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); Essential hypertension; Microcytosis; Preventative health care; Iron deficiency anemia, unspecified iron deficiency anemia type; Nephropathy Social History Tobacco Use Types Packs/Day Years Used Date Smoking Tobacco: Never Smokeless Tobacco: Never Alcohol Use Standard Drinks/Week Comments Yes 1 (1 standard drink = 0.6 oz pur e alcohol) socially PHQ-2 Answer Date Recorded PHQ2 TOTAL SCORE 0 11/16/2021 Sex and Gender Information Value Date Recorded Sex Assigned at Not on file Gender Identity Not on file Sexual Orientation Not on file documented as of this encounter Last Filed Vital Signs Vital Sign Reading Time Taken Comments Blood Pressure 187/82 11/16/2021 3:36 PM CDT Pulse 66 11/16/2021 3:04 PM CDT Temperature 36.3 ??C (97.3 ??F) 11/16/2021 3:04 PM CD T Respiratory Rate 20 11/16/2021 3:04 PM CDT Oxygen Saturation 97% 11/16/2021 3:04 PM CDT Inhaled Oxygen Concentration - - Weight 122.9 kg (271 lb) 11/16/2021 3:04 PM CDT Height 167.6 cm (5' 6 ) 11/16/2021 3:04 PM CDT Body Mass Index 43.74 11/16/2021 3:04 PM CDT documented in this encounter Patient Instructions * Patient Instructions* Rosalee Cano MD - 11/16/2021 3:47 PM CDT ?? Please start taking atorvastatin 40mg daily and aspirin 81mg daily ?? Please also start taking lisinopril 40mg daily ?? Start checking blood pressure at home ?? I have refilled all of your medications ?? We will get labs at next visit documented in this encounter Progress Notes * Rosalee Cano MD - 11/16/2021 3:00 PM CDT [facility] General Internal Medicine New Patient Note CC: Chief Complaint Patient presents with ??? Follow-up History of Present Illness: Mauricio Flores is a 56 year old female presenting to [facility] for follow up. HTN -has not been taking BP at home -BP today 187/82 -has not taken lisinopril in a few months T2DM -has not been taking glipizide; not taking any DM medications -gabapentin taking 300mg at night and helps sleep well; no dizziness during the day -has been trying to decrease carbs and sweets -has lost >35lbs in the last year -still has R foot tingling -foot sensation intact HLD -does not take atorvastatin and ASA consistently Microcytosis -takes iron daily Past Medical History: Reviewed and updated in Epic History tab Past Surgical History: Reviewed and updated in Epic History tab Family History: Reviewed and updated in Epic History tab Social History: Reviewed and updated in Epic History tab Medications: Reviewed and updated in Epic Medications tab Allergies: Reviewed and updated in [facility] Allergies tab Review of Systems: A 10-oint ROS was reviewed and negative unless noted in HPI. Physical Exam: BP 187/82 (BP SITE: LEFT ARM, BP POSITION: SITTING, BP CUFF SIZE: 12) Pulse 66 Temp 97.3 ??F (36.3 ??C) (Temporal) Resp 20 Ht 1.676 m (5' 6 ) Wt 122.9 kg (271 lb) SpO2 97% BMI 43.74 kg/m2 Gen: NAD, conversational, pleasant, cooperative Eyes: EOMI; PERRLA; anicteric, non-injected sclerae Neck: supple with normal ROM CV: normal S1, S2; RRR; no MRGs appreciated; 2+ DP pulses bilaterally; no LE edema bilaterally Pulm: CTAB; no wheezes or crackles GI: abd soft, NT to palpation; +BS; no HSM, no guarding or rebound Neuro: CN II-XII grossly intact; 5/5 strength in bilateral UE, LE; no focal neurologic deficits Psych: AOx3; calm, congruent affect Skin: no rashes appreciated, warm hands and feet BILATERAL FOOT EXAM: Visual inspection: normal Sensory exam with monofilament: fully intact Pulse exam: 2+ Labs: Personally reviewed. Imaging/Other diagnostic testing: Personally reviewed. Assessment & Plan: Mauricio Flores is a 55 year old female w/ PMHx significant for HTN, T2DM, diabetic neuropathy, hx TIA, HLD, pericardial cyst, microcytosis presenting to GI clinic to establish care. #HTN -BP today 187/82 -not taking BP at home -lisinopril caused frequent BMs; switched to nightly last visit -previously stopped amlodipine d/t side effects -has not taken lisinopril in a few months Plan: -continue carvedilol 25mg BID and hydralazine 75mg BID -restart lisinopril 40mg at night #T2DM #Diabetic neuropathy -POC A1c 6.4 in 03/2021 -not on DM meds -dizziness w/ gabapentin, takes gabapentin 300mg qhs now and dizziness improved -eye exam:??last 05/2019-concern for retinopathy -foot exam:??today, intact sensation bilaterally -microalb/cr ratio elevated (180) in 08/2019, seen by nephro and instructed to work on control of HTN and DM; improved to 68 in 01/2021 but still elevated -tingling of RLE -lifestyle modifications Plan: -POC A1c today 5.7 -gabapentin 300mg qhs -continue diet control (not on meds) -will see optho when insurance restarts (06/2022) -will order micro/cr ratio when insurance restarts #Hx TIA?? #HLD -home meds: ASA + atorvastatin: does not take either consistently Plan: -continue ASA and atorvastatin, reiterated importance of compliance #Isolated proteinuria with morphologic lesion -seen by nephro and instructed to work on control of HTN and DM ?? #Pericardial cyst -noted on outside imaging, but not on echo in 06/2020 -previous [employer] [facility] discussed w/ cards: recommended yearly echo x 2, then every 5 years if stable -per [employer] [facility] report: usually benign if not enlarging??per Dr. Saldana -echo done in 04/2021 w/ no pericardial cyst seen & EF 54% Plan: -continue monitoring w/ echo (yearly echo x 2, then every 5 years if stable); will need echo in 04/2022 ?? #Hx Microcytosis, resolved -no anemia -previously prescribed iron -colonoscopy normal Plan: -continue iron supplementation -order CBC when insurance restarted Preventative Care/Health Maintenance: Patient currently unable to complete any current gaps due to lack of insurance til 06/2022. Immunizations - Tdap: deferred - Influenza: n/a - PPSV23: deferred - PCV13: deferred - Zoster: not done - HPV: n/a Colorectal cancer screening: UTD, repeat in 5 yrs from 11/2020 given FHx Lung cancer screening: n/a HIV, Hep C: Hep C, deferred HIV Lipid screening: UTD DM screening: UTD Depression screening: PHQ-9: 3 Cervical cancer screening: believes UTD done in [place] Preconception counseling: n/a Breast ca screening: UTD; will get when insurance is back Osteoporosis screening: n/a Patient discussed with attending physician, Dr. Tello, who agrees with my assessment and plan. Return to clinic in 6 month (d/t insurance). Rosalee Cano MD 01/05/2021 3:49 PM Associated attestation - Lala Tello MD - 11/23/2021 12:18 PM CDT IM Attending-Outpatient Clinic note I discussed the patient with the resident, and reviewed the resident's note at the time of the visit and I agree with history, physical exam, assessment, and plan as documented by the resident. Lala Tello MD, FACP DOS: 11/16/2021 documented in this encounter Plan of Treatment Upcoming Encounters Date Type Department Care Team (Late st Contact Info) Description 12/15/2024 1:00 PM CDT Office Visit [facility] - Internal Med [address] [facility], [place] [address] Neil Velasquez MD [address] [facility] [place] [address] documented as of this encounter Procedures Procedure Name Priority Date/Time Associated Diagnosis Comments HEMOGLOBIN A1C - POINT OF CARE (AMB) [facility] Routine 11/16/2021 3:22 PM CDT Type 2 diabetes mellitus with complication, without long-term current use of insulin (HCC) documented in this encounter Results * HEMOGLOBIN A1C - POINT OF CARE (AMB) [facility] (11/16/2021 3:22 PM CDT) Hemoglobin A1c POCT 5.7 % BLOOD SPECIMEN / Unknown 11/16/2021 3:22 PM CDT Lala Tello MD LAB - POINT OF CA RE ORDERABLES documented in this encounter Visit Diagnoses Diagnosis Type 2 diabetes mellitus with complication, without long-term current use of insulin (HCC)- Primary Hyperlipidemia, unspecified hyperlipidemia type Pericardial cyst (HCC) 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) Type II or unspecified type diabetes mellitus with unspecified complication, not stated as uncontrolled Essential hypertension Microcytosis Other abnormality of red blood cells Preventative health care Routine general medical examination at a health care facility Iron deficiency anemia, unspecified iron deficiency anemia type Nephropathy Nephritis and nephropathy, not specified as acute or chronic, with unspecified pathological lesion in kidney documented in this encounter Care Teams Carrot Grader Inspector Relationship Specialty Start Date End Date Rosalee Cano MD [address] OF [facility] [place] [address] PCP - General 05/04/21 12/01/21 documented as of this encounter
--- OUTSIDE RECORDS SUMMARY | 2024-08-02 10:00 | XMS_ITS | Encounter Summary ---
Author Organization [facility] Health Address [address] [facility] [place] [address] Care Team Providers Care Offshoring Manager Name Role Phone Rosalee Cano MD Unavailable [phone] Rosalee Cano MD Unavailable Ronald Casarez MD Primary Care Provider Lala Tello MD Primary Care Provider [phone] Encounter Details Date Type Department Care Team (Late Contact Info) Description 11/22/2022 Orders Only [facility] [address] [place] [address], [place] [address] Rosalee Cano MD [address] [place] [address] OF [facility] [place] [address] Pericardial cyst (HCC) Social History Tobacco Use [...] Med [address], [place] [address] Neil Velasquez MD [address] [place] [address] documented as of this encounter Visit Diagnoses Diagnosis Pericardial cyst (HCC) Other specified congenital anomaly of heart documented in this encounter Care Teams Offshoring Manager Relationship Specialty Start Date End Date Ronald Casarez MD [address] [place] [phone] PCP - General Internal Medicine 11/22/22 11/22/22 Lala Tello MD [address] [place] [phone] PCP - General 11/23/22 12/05/22 Rosalee Cano MD [address] 2[address] DIV [place] [address] Resident Internal Medicine 12/02/21 03/20/23 Rosalee Cano MD [address] [place] [address] Resident - PCP Internal Medicine 02/20/22 03/13/23 documented as of this encounter
--- OUTSIDE RECORDS SUMMARY | 2024-08-02 10:00 | XMS_ITS | Encounter Summary ---
Author Organization [facility] Health Address [address] [facility] [address] Care Team Providers Care Plate Glass Grinder Name Role Phone Rosalee Cano MD Unavailable [phone] Rosalee Cano MD Unavailable [phone] Ronald Casarez MD Primary Care Provider Reason for Referral * Radiology Services (Routine) - Closed Specialty Diagnoses / Procedures Referred By Jimmy schaeffer Referred To Contact Mammography Diagnoses Preventative health care Procedures MAMMO BILAT SCREENING W Ronald Rodriguez MD [address] [place] [address] Referral ID Status Reason Start Date Expiration Date Visits Re quested Visits Authorized [id number] Closed 11/22/2022 11/22/2023 1 1 Reason for Visit * Radiology Services (Routine) - Closed Specialty Diagnoses / Procedures Referred By Jimmy schaeffer Referred To Contact Mammography Diagnoses Preventative health care Procedures MAMMO BILAT SCREENING W Ronald Rodriguez MD [address] [place] [address] Referral ID Status Reason Start Date Expiration Date Visits Re quested Visits Authorized [id number] Closed 11/22/2022 11/22/2023 1 1 Encounter Details Date Type Department Care Team (Latest Contact Info) Description 12/28/2022 8:30 AM CDT - 12/28/2022 11:59 PM CDT Hospital Encounter [facility] [address] [place] [address] Ronald Casarez MD [address] [place] [address] Discharge Disposition: Home or Self [...] 100 11 03/13/2017 VITAMIN D PO atorvastatin (Lipitor) 40 MG tabletIndications:Hyper lipidemia, unspecified hyperlipidemia type Take 1 (one) tablet by mouth at bedtime 90 tablet 1 11/22/2022 03/14/2023 bisacodyl EC (DULCOLAX) 5 MG tablet Take all 4 tablets at noon the day before your colonoscopy. 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) by Apply externally route 3 times daily 04/06/2021 05/21/2023 carvedilol (Coreg) 25 MG tabletIndications:Essen tial hypertension Take 1 (one) tablet by mouth 2 times daily with morning and evening meal 60 tablet 5 09/04/2022 02/27/2023 ferrous sulfate 325 (65 FE) MG tabletIndications:Iron deficiency anemia, unspecified iron deficiency anemia type Take 1 (one) tablet by mouth 2 times daily with morning and evening meal 60 tablet 4 11/22/2022 03/14/2023 gabapentin (NEURONTIN) 100 MG capsuleIndications: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) Take 1 (one) capsule by mouth 3 times daily 90 capsule 5 11/16/2021 03/14/2023 hydrALAZINE (Apresoline) 25 MG tabletIndications:Essen tial hypertension Take 1 (one) tablet by mouth 3 times daily FOR BLOOD PRESSURE 270 tablet 4 11/22/2022 05/21/2023 hydrALAZINE (Apresoline) 50 MG tabletIndications:Essen tial hypertension Take 1 (one) tablet by mouth 3 times daily 270 tablet 11/22/2022 02/19/2023 lisinopril-hydroCHLOROt hiazide (Prinzide; Zestoretic) 20-12.5 MG tablet Take 1 (one) tablet by mouth once daily 30 tablet 4 12/06/2022 02/27/2023 lisinopril-hydroCHLOROt hiazide (Prinzide; Zestoretic) 10-12.5 MG tabletIndications:Essen tial hypertension Take 1 (one) tablet by mouth once daily 100 tablet 4 11/22/2022 02/27/2023 polyethylene glycol 3350 (MIRALAX) 17 GM/SCOOP powder [...] [facility] Med [address] [facility], [place] [phone] Neil Velasquez MD [address] [facility] [place] [address] documented as of this encounter Procedures Procedure Name Priority Date/Time Associated Diagnosis Comments MAMMO BILAT SCREENING W JAY Routine 12/28/2022 9:25 AM CDT Preventative health care documented in this encounter Results * MAMMO BILAT SCREENING W JAY (12/28/2022 [...] NEGATIVE. > Dictated by Genny Umana DO (certified residential medication aide). I, Annita Mei MD have personally reviewed and interpreted this examination/study. > Interpreting Provider: Annita Mei MD on 12/28/2022 10:31 AM Narrative 12/28/2022 10:31 AM CDT EXAMINATION: DIGITAL MAMMO BILAT SCREENING W JAY AND WITH CAD LOCATION: [facility] DATE: ??12/28/2022 HISTORY: ??Screening. History of [...] prior. ?? Ronald Casarez MD MAMMO ORDERABLES documented in this encounter Visit Diagnoses Diagnosis Preventative health care Routine general medical examination at a health care facility documented in this encounter Care Teams Plate Glass Grinder Relationship Specialty Start Date End Date Ronald Casarez MD [address] [place] [address] PCP - General Internal Medicine 12/06/22 05/20/23 Rosalee Cano MD [address] DIV OF [place] [address] Resident Internal Medicine 12/02/21 03/20/23 Rosalee Cano MD [address] DIV OF [place] [address] Resident - PCP Internal Medicine 02/20/22 03/13/23 documented as of this encounter
--- OUTSIDE RECORDS SUMMARY | 2024-08-02 10:00 | XMS_ITS | Encounter Summary ---
Author Organization [facility] Health Address [address] [place] [address] Care Team Providers Care Hand Picker Name Role Phone Unavailable Primary Care Provider Unavailabl e Reason for Visit * Reason Onset Date Comments Opened In Error 2021 Encounter Details Date Type Department Care Team (Late st Contact Info) Description 2021 Refill [facility] [address] [facility], [facility] [place] [address] Angel Bedoya, DO [address] [place] [phone] Opened In Error Social History Tobacco Use [...] Telephone Encounter - Suad Ingram RN - 2021 2:38 PM CDT OPENED IN ERROR documented in this encounter Plan of Treatment Upcoming Encounters Date Type Department Care Team (Late st Contact Info) Description 12/15/2024 1:00 PM CDT Office Visit [facility] [address] [facility], [place] [address] Neil Velasquez MD [address] [facility]?? [place] [address] documented as of this encounter Visit Diagnoses Not on filedocumented in this encounter
--- OUTSIDE RECORDS SUMMARY | 2024-08-02 10:00 | XMS_ITS | Encounter Summary ---
Author Organization [facility] Health Address [address] [place] [address] Care Team Providers Care White Shoe Ragger Name Role Phone Rosalee Cano MD Primary Care Provider [phone] Reason for Visit * Reason Onset Date Comments MEDICATION REFILL 08/24/2021 Encounter Details Date Type Department Care Team (Late st Contact Info) Description 08/24/2021 Refill [facility] [address] [place] [address], [place] [address] Rosalee Cano MD [address] [place] [address] OF [facility] [place] [address] MEDICATION REFILL Social History Tobacco Use Types [...] Telephone Encounter - Stacy Snow RN - 08/25/2021 12:44 PM AMMONIA OPERATOR Pt calling back asking for the Iron to be refilled. NIA OPERATOR * Telephone Encounter - Suad Ingram RN - 08/24/2021 4:42 PM AMMONIA OPERATOR Refill Request Mauricio Damian Mark NEREIDA: 04/06/21 NOV scheduled: 11/16/2021 LRF: 04/06/21 Qty Disp: 60 tabs # of refills: 4 Allergies: Allergies Allergen Reactions ??? Hydrocodone-Acetaminophen Rash Vicodin ??? [place] Itching Pended Medication Order: Requested Prescriptions Pending Prescriptions Disp Refills ??? ferrous sulfate 325 (65 FE) MG tablet 60 tablet 4 Sig: Take 1 (one) tablet by mouth 2 times daily with morning and evening meal NIA OPERATOR documented in this encounter Plan of Treatment Upcoming Encounters Date Type Department Care Team (Late st Contact Info) Description 12/15/2024 1:00 PM CDT Office Visit [facility] - Internal Med [address] [facility], [place] [address] Neil Velasquez MD [address] [facility]?? [place] [address] documented as of this encounter Visit Diagnoses Diagnosis Iron deficiency anemia, unspecified iron deficiency anemia type documented in this encounter Care Teams White Shoe Ragger Relationship Specialty Start Date End Date Rosalee Cano MD [address] [facility] 2L DIV OF [facility] [place] [address] PCP - General 05/04/21 12/01/21 documented as of this encounter
--- OUTSIDE RECORDS SUMMARY | 2024-08-02 10:00 | XMS_ITS | Encounter Summary ---
Author Organization [facility] Health Address [address] [facility] [place] [address] Care Team Providers Care Petroleum Terminal Plant Operator Name Role Phone Rosalee Cano MD Primary Care Provider [phone] Reason for Visit * Reason Onset Date Comments MEDICATION REFILL 02/11/2021 Encounter Details Date Type Department Care Team (Late st Contact Info) Description 02/11/2021 Refill [facility] [address] [place] [address], [place] [address] Rosalee Cano MD [address] [place] [address] OF [facility] [place] [address] MEDICATION REFILL Social History Tobacco Use Types [...] Telephone Encounter - Shelbie Turner LPN - 02/11/2021 11:21 AM CDT Refill Request Mauricio Flores NEREIDA: 5.. NOV scheduled: 03/23/2021 LRF: 01.19.21 Qty Disp: 60 # of refills: 1 Allergies: Allergies Allergen Reactions ??? Hydrocodone-Acetaminophen Rash Vicodin ??? [place] Itching Pended Medication Order: Requested Prescriptions Pending Prescriptions Disp Refills ??? carvedilol (COREG) 25 MG tablet 60 tablet 1 Sig: Take 1 (one) tablet by mouth 2 times daily with morning and evening meal documented in this encounter Plan of Treatment Upcoming Encounters Date Type Department Care Team (Late st Contact Info) Description 12/15/2024 1:00 PM CDT Office Visit [facility] - Internal Med [facility] [facility], [place] [address] Neil Velasquez MD [address] [facility] [place] [address] documented as of this encounter Visit Diagnoses Not on filedocumented in this encounter Care Teams Petroleum Terminal Plant Operator Relationship Specialty Start Date End Date Rosalee Cano MD [address] [place] [address] [address] DIV OF [facility] [place] [address] PCP - General 12/10/20 04/12/21 documented as of this encounter
--- OUTSIDE RECORDS SUMMARY | 2024-08-02 10:00 | XMS_ITS | Encounter Summary ---
Author Organization [facility] Health Address [address] [facility] [place] [address] Care Team Providers Care Bacteriology Teacher Name Role Phone Ronald Casarez MD Primary Care Provider Randi Gomes DO Unavailable [phone] Reason for Visit * Reason Comments Refill Request Encounter Details Date Type Department Care Team (Late st Contact Info) Description 04/20/2023 Refill [facility] [address] [facility] [place] [place] [address] Randi Gomes, [address] [facility] [place] [address] Refill Request Social History Tobacco Use Types [...] Telephone Encounter - Stacy Snow RN - 04/20/2023 8:49 AM CDT Refill Request Mauricio Flores Recent Visits Date Type Provider Dept 03/14/23 Office Visit Randi Gomes DO [facility] 2[facility] 11/22/22 Office Visit Rosalee Cano MD [facility] 2[facility] 11/16/21 Office Visit Rosalee Cano MD [facility] 2l Showing recent visits within past 540 days with a meds authorizing provider and meeting all other requirements Future Appointments Date Type Provider Dept 04/25/23 Appointment Randi Gomes DO [facility] 2l Showing future appointments within next 150 days with a meds authorizing provider and meeting all other requirements Last Refill: 03-14-23 Allergies: Allergies Allergen Reactions ??? Hydrocodone-Acetaminophen Rash Vicodin ??? [place] Itching Pended Medication Order: Requested Prescriptions Pending Prescriptions Disp Refills ??? lisinopril (Prinivil; Zestril) 40 MG tablet [Pharmacy Med Name: LISINOPRIL 40 MG TABLET] 30 tablet 5 Sig: TAKE 1 TABLET BY MOUTH EVERY DAY documented in this encounter Plan of Treatment Upcoming Encounters Date Type Department Care Team (Late st Contact Info) Description 12/15/2024 1:00 PM CDT Office Visit [facility] - [facility] Med [address] [facility] [place] [place] [address] Neil Velasquez MD [address] [facility] [place] [address] documented as of this encounter Visit Diagnoses Diagnosis Essential hypertension documented in this encounter Care Teams Bacteriology Teacher Relationship Specialty Start Date End Date Ronald Casarez MD [address] [place] [phone] PCP - General Internal Medicine 12/06/22 05/20/23 Randi Gomes DO [address] [facility] [place] [address] Resident - PCP Internal Medicine 03/14/23 07/02/24 documented as of this encounter
--- OUTSIDE RECORDS SUMMARY | 2024-08-02 10:00 | XMS_ITS | Encounter Summary ---
Author Organization [facility] Health Address [address] [facility] [place] [address] Care Team Providers Care Photographic Press Screwmaker Name Role Phone Rosalee Cano MD Primary Care Provider [phone] Reason for Visit * Reason Onset Date Comments Medication Issue 05/16/2021 Encounter Details Date Type Department Care Team (Late st Contact Info) Description 05/16/2021 Telephone [facility] [address] [facility], [facility] [place] [address] Angel Bedoya, DO [address] [place] [address] Medication Issue Social History Tobacco Use Types Packs/Day Years [...] Miscellaneous Notes * Telephone Encounter - Kathy Astudillo RN - 05/16/2021 9:45 AM CDT Pt requests refill on coreg;was told per [facility] no refills available; per her request, called [facility] [phone];was error in system; will be ready for slat pickler today. Informed pt. Requests when refilled to get 3 months quantity on all meds and asked her to mention it when calls for refill. documented in this encounter Plan of Treatment Upcoming Encounters Date Type Department Care Team (Late st Contact Info) Description 12/15/2024 1:00 PM CDT Office Visit [facility] - Internal Med [address] [facility], [place] [address] Neil Velasquez MD [address] [facility] [place] [address] documented as of this encounter Visit Diagnoses Not on filedocumented in this encounter Care Teams Photographic Press Screwmaker Relationship Specialty Start Date End Date Rosalee Cano MD [address] [facility] 2L [place] [address] PCP - General 05/04/21 12/01/21 documented as of this encounter
--- OUTSIDE RECORDS SUMMARY | 2024-08-02 10:00 | XMS_ITS | Encounter Summary ---
Author Organization [facility] Health Address [address] [place] [address] Care Team Providers Care Metal Caster Name Role Phone Rosalee Cano MD Primary Care Provider [phone] Reason for Visit * Reason Onset Date Comments MEDICATION REFILL 03/01/2021 Encounter Details Date Type Department Care Team (Late st Contact Info) Description 03/01/2021 Refill [facility] [address] [place] [address], [place] [address] Rosalee Cano MD [address] [place] [address] OF [facility] [place] [address] MEDICATION REFILL Social History Tobacco Use Types [...] Telephone Encounter - Kathy Mina RN - 03/01/2021 9:39 AM CDT Refill Request Mauricio Flores NEREIDA: 08/11/20 Faviola VASQUEZ scheduled: 03/23/2021 Jerome PARRISH LRF: 02/01/21 Qty Disp: 90 # of refills: 0 [...] 12/15/2024 1:00 PM CDT Office Visit [facility] - Internal Med [facility], [place] [address] Neil Velasquez MD [address] [facility] [place] [address] documented as of this encounter Visit Diagnoses Diagnosis Essential hypertension documented in this encounter Care Teams Metal Caster Relationship Specialty Start Date End Date Rosalee Cano MD [address] [facility] 2L DIV OF [facility] [place] [address] PCP - General 12/10/20 04/12/21 documented as of this encounter
--- OUTSIDE RECORDS SUMMARY | 2024-08-02 10:00 | XMS_ITS | Encounter Summary ---
Author Organization [facility] Health Address [address] [facility] [place] [address] Care Team Providers Care Faculty Criminal Justice Name Role Phone Rosalee Cano MD Primary Care Provider [phone] Reason for Visit * Reason Onset Date Comments MEDICATION REFILL 08/23/2021 Encounter Details Date Type Department Care Team (Late st Contact Info) Description 08/23/2021 Refill [facility] [address] [place] [address], [place] [address] Rosalee Cano MD [address] [place] [address] OF [facility] [place] [address] MEDICATION REFILL Social History Tobacco Use Types [...] encounter Miscellaneous Notes * Telephone Encounter - Laura Kern - 08/23/2021 8:56 AM CST Refill Request Mauricio Flores NEREIDA: 04/06/21 NOV due: 11/16/21 NOV scheduled: 11/16/2021 LRF: 07/20/21 Qty Disp: 90 # of refills: 1 Allergies: Allergies Allergen Reactions ??? Hydrocodone-Acetaminophen Rash Vicodin ??? [place] Itching Pended Medication Order: Requested Prescriptions Pending Prescriptions Disp Refills ??? lisinopril (PRINIVIL; ZESTRIL) 40 MG tablet 90 tablet 1 Sig: Take 1 (one) tablet by mouth once daily TRICAL ACCESSORIES I ASSEMBLER documented in this encounter Plan of Treatment Upcoming Encounters Date Type Department Care Team (Late st Contact Info) Description 12/15/2024 1:00 PM CDT Office Visit [facility] - Internal Med [address] [facility], [place] [address] Neil Velasquez MD [address] [facility] [place] [address] documented as of this encounter Visit Diagnoses Not on filedocumented in this encounter Care Teams Faculty Criminal Justice Relationship Specialty Start Date End Date Rosalee Cano MD [address] [facility] 2L DIV OF [facility] [place] [address] PCP - General 05/04/21 12/01/21 documented as of this encounter
--- OUTSIDE RECORDS SUMMARY | 2024-08-02 10:00 | XMS_ITS | Encounter Summary ---
Author Organization [facility] Health Address [address] [place] [address] Care Team Providers Care Rn Clinical Review Name Role Phone Rosalee Eastman MD Primary Care Provider [phone] Reason for Visit * Reason Onset Date Comments MEDICATION REFILL 02/16/2021 Encounter Details Date Type Department Care Team (Late st Contact Info) Description 02/16/2021 Refill [facility] [address] [place] [address], [place] [address] Rosalee Eastman MD [address] [place] [address] OF [facility] [place] [address] MEDICATION REFILL Social History Tobacco Use Types [...] Miscellaneous Notes * Telephone Encounter - Laura Bobo - 02/16/2021 8:15 AM CDT Refill Request Refill Request Mauricio Flores NEREIDA: 01/05/21Jun due: 03/23/21Jun scheduled: 03/23/2021 LRF: NA Allergies: Allergies Allergen Reactions ??? Hydrocodone-Acetaminophen Rash Vicodin ??? [place] Itching Pended Medication Order: Requested Prescriptions Signed Prescriptions Disp Refills ??? lisinopril (PRINIVIL; ZESTRIL) 40 MG tablet 90 tablet 1 Sig: Take 1 (one) tablet by mouth once daily Authorizing Provider: ROSALEE EASTMAN Ordering User: LAURA BOBO ??? carvedilol (COREG) 25 MG tablet 60 tablet 1 Sig: Take 1 (one) tablet by mouth 2 times daily with morning and evening meal Authorizing Provider: ROSALEE EASTMAN Ordering User: LAURA BOBO documented in this encounter Plan of Treatment Upcoming Encounters Date Type Department Care Team (Late st Contact Info) Description 12/15/2024 1:00 PM CDT Office Visit [facility] - Internal Med [facility]5 [facility], [place] [address] Neil Velasquez MD [address] [facility] [place] [address] documented as of this encounter Visit Diagnoses Not on filedocumented in this encounter Care Teams Rn Clinical Review Relationship Specialty Start Date End Date Rosalee Eastman MD [facility] DIV OF [facility] [place] [address] PCP - General 12/10/20 04/12/21 documented as of this encounter
--- OUTSIDE RECORDS SUMMARY | 2024-08-02 10:00 | XMS_ITS | Encounter Summary ---
Author Organization [facility] Health Address [address] [facility] [place] [address] Care Team Providers Care Cost Recovery Technician Name Role Phone Rosalee Cano MD Primary Care Provider [phone] Reason for Visit * Reason Onset Date Comments MEDICATION REFILL 05/05/2021 Encounter Details Date Type Department Care Team (Late st Contact Info) Description 05/05/2021 Refill [facility] [address] [facility], [facility] [place] [address] Angel Bedoya, DO [address] [place] [phone] MEDICATION REFILL Social History Tobacco Use Types [...] Telephone Encounter - Lucia Perry RN - 05/05/2021 3:32 PM CDT Refill Request Mauricio Flores NEREIDA: 04/06/21 NOV scheduled: 11/09/2021 LRF: 04/06/21 Qty Disp: 90 # of refills: 0 Allergies: Allergies Allergen Reactions ??? Hydrocodone-Acetaminophen Rash Vicodin ??? [place] Itching Pended Medication Order: Requested Prescriptions Pending Prescriptions Disp Refills ??? hydrALAZINE (APRESOLINE) 50 MG tablet 90 tablet 0 Sig: Take 1 (one) tablet by mouth 3 times daily documented in this encounter Plan of Treatment Upcoming Encounters Date Type Department Care Team (Late st Contact Info) Description 12/15/2024 1:00 PM CDT Office Visit [facility] - Internal Med [facility] [facility], [place] [address] Neil Velasquez MD [address] [facility]?? [place] [address] documented as of this encounter Visit Diagnoses Diagnosis Essential hypertension documented in this encounter Care Teams Cost Recovery Technician Relationship Specialty Start Date End Date Rosalee Cano MD [address] [place] [address] 2L DIV OF [facility] [place] [address] PCP - General 05/04/21 12/01/21 documented as of this encounter
--- OUTSIDE RECORDS SUMMARY | 2024-08-02 10:00 | XMS_ITS | Encounter Summary ---
Author Organization [facility] Health Address [address] [facility] [place] [address] Care Team Providers Care Loading Unit Operator Name Role Phone Rosalee Cano MD Primary Care Provider [phone] Reason for Visit * Reason Onset Date Comments MEDICATION REFILL 09/30/2021 Encounter Details Date Type Department Care Team (Late st Contact Info) Description 09/30/2021 Refill [facility] [address] [place] [address], [place] [address] Rosalee Cano MD [address] [place] [address] OF [facility] [place] [address] MEDICATION REFILL Social History Tobacco Use Types [...] Telephone Encounter - Stacy Snow RN - 09/30/2021 3:37 PM MEDICAL SERVICE REPRESENTATIVE Refill Request Mauricio Flores NEREIDA: 03-17-21Jun due: NOV scheduled: 11/16/2021 LRF: 04-06-21 Qty Disp: 90 # of refills: 4 Allergies: Allergies Allergen Reactions ??? Hydrocodone-Acetaminophen Rash Vicodin ??? [place] Itching Pended Medication Order: Requested Prescriptions Pending Prescriptions Disp Refills ??? gabapentin (NEURONTIN) 100 MG capsule 90 capsule 4 Sig: Take 1 (one) capsule by mouth 3 times daily CAL SERVICE REPRESENTATIVE documented in this encounter Plan of Treatment Upcoming Encounters Date Type Department Care Team (Late st Contact Info) Description 12/15/2024 1:00 PM CDT Office Visit [facility] - Internal Med [address] [facility], [place] [address] Neil Velasquez MD [address] [facility] 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 2L DIV OF [facility] [place] [address] PCP - General 05/04/21 12/01/21 documented as of this encounter
--- OUTSIDE RECORDS SUMMARY | 2024-08-02 10:00 | XMS_ITS | Encounter Summary ---
Author Organization [facility] Health Address [address] [place] [address] Care Team Providers Care Benefits Advisor Name Role Phone Rosalee Cano MD Primary Care Provider [phone] Reason for Visit * Reason Onset Date Comments MEDICATION REFILL 07/15/2021 Encounter Details Date Type Department Care Team (Late st Contact Info) Description 07/15/2021 Refill [facility] [address] [place] [address], [place] [address] Rosalee Cano MD [address] [place] [address] OF [facility] [place] [address] MEDICATION REFILL Social History Tobacco Use Types [...] Telephone Encounter - Lucia Perry RN - 07/15/2021 10:04 AM EMT DISPATCHER Refill Request Mauricio Flores NEREIDA: 04/06/21 NOV scheduled: 11/16/2021 LRF: 06/23/21 Qty Disp: 90 # of refills: 0 Allergies: Allergies Allergen Reactions ??? Hydrocodone-Acetaminophen Rash Vicodin ??? [place] Itching Pended Medication Order: Requested Prescriptions Pending Prescriptions Disp Refills ??? hydrALAZINE (APRESOLINE) 50 MG tablet 90 tablet 0 Sig: Take 1 (one) tablet by mouth 3 times daily DISPATCHER documented in this encounter Plan of Treatment Upcoming Encounters Date Type Department Care Team (Late st Contact Info) Description 12/15/2024 1:00 PM CDT Office Visit [facility] - [facility] Med [address] [facility], [place] [address] Neil Velasquez MD [address] [facility] [place] [address] documented as of this encounter Visit Diagnoses Diagnosis Essential hypertension documented in this encounter Care Teams Benefits Advisor Relationship Specialty Start Date End Date Rosalee Cano MD [address] [facility] 2L DIV OF [facility] [place] [address] PCP - General 05/04/21 12/01/21 documented as of this encounter
--- OUTSIDE RECORDS SUMMARY | 2024-08-02 10:00 | XMS_ITS | Encounter Summary ---
Author Organization [facility] Health Address [address] [facility] [place] [address] Care Team Providers Care Buck Presser Name Role Phone Rosalee Cano MD Unavailable [phone] Rosalee Cano MD Unavailable [phone] Ronald Casarez MD Primary Care Provider [phone] Encounter Details Date Type Department Care Team (Latest Contact Info) Description 02/27/2023 Travel Social History Tobacco Use Types Packs/Day [...] [facility] [address] [facility], [place] [address] Neil Velasquez MD [address] [facility] [place] [address] documented as of this encounter Visit Diagnoses Not on filedocumented in this encounter Care Teams Buck Presser Relationship Specialty Start Date End Date Ronald Casarez MD [address] [place] [phone] PCP - General Internal Medicine 12/06/22 05/20/23 Rosalee Cano MD [address] 2L DIV [place] [address] Resident Internal Medicine 12/02/21 03/20/23 Rosalee Cano MD [address] 2[address] DIV OF [facility] [place] [address] Resident - PCP Internal Medicine 02/20/22 03/13/23 documented as of this encounter
--- OUTSIDE RECORDS SUMMARY | 2024-08-02 10:00 | XMS_ITS | Encounter Summary ---
Author Organization [facility] Health Address [address] [place] [address] Care Team Providers Care Musical Instrument Maker Name Role Phone Rosalee Cano MD Primary Care Provider [phone] Encounter Details Date Type Department Care Team (Latest Contact Info) Description 05/04/2021 Travel Social History Tobacco Use Types Packs/Day [...] PM CDT documented as of this encounter Plan of Treatment Upcoming Encounters Date Type Department Care Team (Late st Contact Info) Description 12/15/2024 1:00 PM CDT Office Visit [facility] Med [address] [facility], [place] [address] Neil Velasquez MD [address] [facility] [place] [address] documented as of this encounter Visit Diagnoses Not on filedocumented in this encounter Care Teams Musical Instrument Maker Relationship Specialty Start Date End Date Cano, Rosalee J, MD [address] OF [facility] [place] [address] PCP - General 05/04/21 12/01/21 documented as of this encounter
--- OUTSIDE RECORDS SUMMARY | 2024-08-02 10:00 | XMS_ITS | Encounter Summary ---
Author Organization [facility] Health Address [address] [facility] [place] [address] Care Team Providers Care Automation And Control Engineer Name Role Phone Rosalee Cano MD Unavailable Rosalee Cano MD Unavailable [phone] Ronald Casarez MD Primary Care Provider [phone] Reason for Visit * Reason Onset Date Comments MEDICATION REFILL 02/19/2023 Encounter Details Date Type Department Care Team (Late st Contact Info) Description 02/19/2023 Refill [facility] Med [address] [place] [phone] Ronald Casarez MD [address] [place] [address] MEDICATION REFILL Social History Tobacco [...] Telephone Encounter - Lucia Perry RN - 02/26/2023 11:46 AM CDT Spoke to patient. Acute care appt scheduled for tomorrow morning. * Telephone Encounter - Lucia Perry RN - 02/22/2023 11:07 AM CDT Images from the original note were not included. Ronald Casarez MD to Me AR ?? 02/21/23 12:14 PM That is concerning Lets see if we can bring her in sooner for an ACS for meds review and clinical check up especially for uncontrolled BP Left VM for patient requesting call back to schedule acute care appt. * Telephone Encounter - Lucia Perry RN - 02/21/2023 9:46 AM CDT Called patient back regarding BP readings. Pt couldn't find notebook with readings at the time of the call. States she hasn't taken her blood pressure in several weeks, but they had been running 170s/90s. Pt denies any symptoms. * Telephone Encounter - Lucia Perry RN - 02/20/2023 9:56 AM CDT Ronald Casarez MD to Chayito York RN ??? Me AR ?? 02/19/23 ??3:27 PM ACEP pt. -increase hydralazine to 75mg TID Can you please call pt and see what she has been taking among other meds. What her BP is on multiple occasions. Any symptoms? Spoke to patient. She is currently taking hydralazine 75mg tid and carvedilol 25mg bid. She is not taking lisinopril/hctz. * Telephone Encounter - Chayito [place] RN - 02/19/2023 1:42 PM CDT Refill Request NEREIDA: 11/22/2022 NOV scheduled: Visit date not found LRF: 11/22/2022 Qty Disp: 270 # of refills: 0 Allergies: Allergies Allergen Reactions ??? Hydrocodone-Acetaminophen Rash Vicodin ??? [place] Itching Pended Medication Order: Requested Prescriptions Pending Prescriptions Disp Refills ??? hydrALAZINE (Apresoline) 50 MG tablet 270 tablet 0 Sig: Take 1 (one) tablet by mouth 3 times daily documented in this encounter Plan of Treatment Upcoming Encounters Date Type Department Care Team (Late st Contact Info) Description 12/15/2024 1:00 PM CDT Office Visit [facility] - Internal Med [address] [facility], [place] [address] Neil Velasquez MD [address] [facility] [address] [place] [address] documented as of this encounter Visit Diagnoses Diagnosis Essential hypertension documented in this encounter Care Teams Automation And Control Engineer Relationship Specialty Start Date End Date Ronald Casarez MD [address] [place] [address] PCP - General Internal Medicine 12/06/22 05/20/23 Rosalee Cano MD [address] 2[address] DIV OF GEN INTERNAL [place] [address] Resident Internal Medicine 12/02/21 03/20/23 Rosalee Cano MD [address] 2[address] DIV OF [facility] INTERNAL [place] [address] Resident - PCP Internal Medicine 02/20/22 03/13/23 documented as of this encounter
--- OUTSIDE RECORDS SUMMARY | 2024-08-02 10:00 | XMS_ITS | Encounter Summary ---
Author Organization [facility] Health Address [address] [facility] [place] [address] Care Team Providers Care Metal Bonding Assembler Name Role Phone Rosalee Cano MD Unavailable Rosalee Cano MD Unavailable [phone] Ronald Casarez MD Primary Care Provider [phone] Encounter Details Date Type Department Care Team (Latest Contact Info) Description 12/06/2022 8:45 AM CDT Clinical Support [facility] General Internal Medicine [address] [place] [address], [facility] [place] [address] Essential hypertension Social History Tobacco Use Types Packs/Day [...] on file documented as of this encounter Progress Notes * Timothy Leon F - 12/06/2022 8:57 AM CDT Patient came into clinic for blood pressure check today it was 194/99 she has taken her blood pressure at home and it was high see media for home readings, Provider increased her lisinopril-hydrochlorothiazide and is she is to monitor her blood pressure over the next 2 weeks and send her provider [employer] message with her results. documented in this encounter Plan of Treatment Upcoming Encounters Date Type Department Care Team (Late st Contact Info) Description 12/15/2024 1:00 PM CDT Office Visit [facility] - Internal Med [address], [place] [address] Neil Velasquez MD [address] [place] [address] documented as of this encounter Visit Diagnoses Diagnosis Essential hypertension- Primary documented in this encounter Care Teams Metal Bonding Assembler Relationship Specialty Start Date End Date Ronald Casarez MD [address] [place] [phone] PCP - General Internal Medicine 12/06/22 05/20/23 Rosalee Cano MD [address] 2[address] [place] [address] Resident Internal Medicine 12/02/21 03/20/23 Rosalee Cano MD [address] 2L [place] [address] Resident - PCP Internal Medicine 02/20/22 03/13/23 documented as of this encounter
--- OUTSIDE RECORDS SUMMARY | 2024-08-02 10:00 | XMS_ITS | Encounter Summary ---
Author Organization [facility] Health Address [address] [place] [address] Care Team Providers Care Extruding Press Operator Name Role Phone Rosalee Cano MD Primary Care Provider [phone] Reason for Visit * Reason Onset Date Comments MEDICATION REFILL 08/23/2021 Encounter Details Date Type Department Care Team (Late Contact Info) Description 08/23/2021 Refill [facility] [place] [phone] Rosalee Cano MD [address] OF [facility] [place] [place] [address] MEDICATION REFILL Social History Tobacco Use Types [...] [facility] Internal Med [address] [place] [address] Neil Velasquez MD [address] [place] [place] [address] documented as of this encounter Visit Diagnoses Not on filedocumented in this encounter Care Teams Extruding Press Operator Relationship Specialty Start Date End Date Rosalee Cano MD [address] [place] [address] PCP - General 05/04/21 12/01/21 documented as of this encounter
--- OUTSIDE RECORDS SUMMARY | 2024-08-02 10:00 | XMS_ITS | Encounter Summary ---
Author Organization [facility] Health Address [address] [facility] [place] [address] Care Team Providers Care Cab Station Attendant Name Role Phone Rosalee Cano MD Primary Care Provider [phone] Reason for Visit * Reason Onset Date Comments MEDICATION REFILL 03/29/2021 Encounter Details Date Type Department Care Team (Late st Contact Info) Description 03/29/2021 Refill [facility] Internal Medicine [address] [place] [address], [place] [address] Rosalee Cano MD [address] [place] [address] OF [facility] [place] [address] MEDICATION REFILL Social History Tobacco Use Types [...] Telephone Encounter - Lucia Perry RN - 03/29/2021 10:07 AM CDT Refill Request Mauricio Flores NEREIDA: 01/05/21 NOV scheduled: 04/06/21 LRF: 03/03/21 Qty Disp: 90 # of refills: 3 Allergies: Allergies Allergen Reactions ??? Hydrocodone-Acetaminophen Rash Vicodin ??? [place] Itching Pended Medication Order: Requested Prescriptions Pending Prescriptions Disp Refills ??? hydrALAZINE (APRESOLINE) 50 MG tablet 90 tablet 0 Sig: Take 1 (one) tablet by mouth 3 times daily documented in this encounter Plan of Treatment Upcoming Encounters Date Type Department Care Team (Late st Contact Info) Description 12/15/2024 1:00 PM CDT Office Visit [facility] - Internal Med [facility] [facility], [place] [address] Neil Velasquez MD [address] [facility] [place] [address] documented as of this encounter Visit Diagnoses Diagnosis Essential hypertension documented in this encounter Care Teams Cab Station Attendant Relationship Specialty Start Date End Date Rosalee Cano MD [address] [place] [address] 2L DIV OF [facility] [place] [address] PCP - General 12/10/20 04/12/21 documented as of this encounter
--- OUTSIDE RECORDS SUMMARY | 2024-08-02 10:00 | XMS_ITS | Encounter Summary ---
Author Organization [facility] Health Address [address] [place] [address] Care Team Providers Care Churn Driller Helper Name Role Phone Rosalee Cano MD Unavailable [phone] Rosalee Cano MD Unavailable [phone] Ronald Casarez MD Primary Care Provider Reason for Referral * Radiology Services (Routine) - Closed Specialty Diagnoses / Procedures Referred By Jimmy schaeffer Referred To Contact Mammography Diagnoses Preventative health care Procedures MAMMO BILAT SCREENING W Ronald Rodriguez MD [address] [place] [address] Referral ID Status Reason Start Date Expiration Date Visits Re quested Visits Authorized [id number] Closed 11/22/2022 11/22/2023 1 1 * Radiology Services (Routine) - Closed Specialty Diagnoses / Procedures Referred By Jimmy schaeffer Referred To Contact Echosonography Diagnoses Pericardial cyst (HCC) Procedures ECHO COMPLETE Ronald Casarez MD [address] [place] [address] Referral ID Status Reason Start Date Expiration Date Visits Re quested Visits Authorized [id number] Closed 11/22/2022 11/22/2023 1 1 Reason for Visit * Reason Comments Follow-up Encounter Details Date Type Department Care Team (Late st Contact Info) Description 11/22/2022 1:30 PM CDT Office Visit [facility] Internal Medicine [facility] 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); Class 3 severe obesity with serious comorbidity and body mass index (BMI) of 45.0 to 49.9 in adult, unspecified obesity type (HCC); Hyperlipidemia, unspecified hyperlipidemia type; Personal history of transient ischemic attack (TIA), and cerebral infarction without residual deficits; Essential hypertension; Pericardial cyst (HCC); Nephropathy; Microcytosis; Iron deficiency anemia, unspecified iron deficiency anemia type; Isolated proteinuria with morphologic lesion; Preventative health care Social History Tobacco Use Types Packs/Day Years [...] Sign Reading Time Taken Comments Blood Pressure 200/100 11/22/2022 1:18 PM CDT Pulse 58 11/22/2022 1:18 PM CDT Temperature 36.2 ??C (97.1 ??F) 11/22/2022 1:18 PM CD T Respiratory Rate 18 11/22/2022 1:18 PM CDT Oxygen Saturation 98% 11/22/2022 1:18 PM CDT Inhaled Oxygen Concentration - - Weight 121.6 kg (268 lb) 11/22/2022 1:18 PM CDT Height 167.6 cm (5' 6 ) 11/22/2022 1:18 PM CDT Body Mass Index 43.26 11/22/2022 1:18 PM CDT documented in this encounter Patient Instructions * Patient Instructions* Rosalee Cano MD - 11/22/2022 2:10 PM CDT INCREASE hydralazine to 75mg three times a day START lisinopril-hydrochlorothiazide 10-12.5mg once daily Start checking your blood pressure at home If you develop headache, chest pain, or blurry vision please go to the Emergency room because it could be due to your high blood pressure Get labs done when possible I have ordered an echo (ultrasound of your heart). They will call to get you scheduled. I have ordered a mammogram as well. They will call to get you scheduled START taking atorvastatin daily again and keep taking aspirin daily documented in this encounter Progress Notes * Rosalee Cano MD - 11/22/2022 1:30 PM CDT [facility] General Internal Medicine New Patient Note CC: Chief Complaint Patient presents with ??? Follow-up History of Present Illness: Mauricio Flores is a 57 year old female presenting to GI clinic for follow up. Has insurance back now. HTN -BP 201/103 -not taking lisinopril but not sure why she stopped -taking coreg -taking hydralazine as 50mg BID -does not take BP at home -no BUTT, CP, SOB, edema, no changes in urination -states has blurry vision ~3 times a month -no blurry vision at this time; last time was about 3 days ago BP Readings from Last 3 Encounters: 11/22/22 (!) 200/100 11/16/21 (!) 187/82 04/06/21 (!) 160/100 T2DM -not taking any DM medications -no longer on gabapentin -neuropathy of right foot -has been losing weight and cutting down on sweets -A1c 6.4 -has not recently seen optho HLD -does not take atorvastatin and ASA consistently The 10-year ASCVD risk score (Amy ROMERO, et al., 2019) is: 38.8% Values used to calculate the score: Age: 57 years Sex: Female Is Non- : Yes Diabetic: Yes Tobacco smoker: No Systolic Blood Pressure: 200 mmHg Is BP treated: Yes HDL Cholesterol: 58 mg/dL Total Cholesterol: 169 mg/dL Microcytosis -takes iron daily Past Medical History: Reviewed and updated in Epic History tab Past Surgical History: Reviewed and updated in Epic History tab Family History: Reviewed and updated in Epic History tab Social History: Reviewed and updated in Epic History tab Medications: Reviewed and updated in Epic Medications tab Allergies: Reviewed and updated in Epic Allergies tab Review of Systems: A 10-point ROS was reviewed and negative unless noted in HPI. Physical Exam: BP (!) 200/100 (BP SITE: LEFT ARM, BP POSITION: SITTING, BP CUFF SIZE: 12) Pulse 58 Temp 97.1 ??F (36.2 ??C) (Temporal) Resp 18 Ht 1.676 m (5' 6 ) Wt 121.6 kg (268 lb) SpO2 98% Gen: NAD, conversational, pleasant, cooperative Eyes: EOMI; PERRLA; anicteric, non-injected sclerae Neck: supple with normal ROM CV: normal S1, S2; RRR; no MRGs appreciated; no LE edema bilaterally Pulm: CTAB; no wheezes or crackles GI: abd soft, NT to palpation; Neuro: CN II-XII grossly intact; no focal neurologic deficits Psych: AOx3; calm, [...] TIA, HLD, pericardial cyst, microcytosis presenting to [facility] clinic to establish care. #HTN -BP today w/ SBP in 200s -not taking BP at home -lisinopril caused frequent BMs; switched to nightly last visit -previously stopped amlodipine d/t side effects -home meds: carvedilol 25mg BID, hydralazine 50mg BID -lisinopril 40mg was instructed to start taking last visit but not taking at this time; denies sideeffects from it Plan: -continue carvedilol 25mg BID -increase hydralazine to 75mg TID -start lisinopril-hydrochlorothiazide 10-12.5mg daily -insturcted to check BP at home -instructed on emergency signs for HTN and to seek treatment in ED if these develop -nursing BP check in one week; increase lisinopril-hydrochlorothiazide if BP remains elevated -BMP ordered #T2DM #Diabetic neuropathy -POC A1c 5.7 in 11/2021 -not on DM meds -dizziness w/ gabapentin, no longer on it -eye exam:??last 05/2019-concern for retinopathy -foot exam:??today, intact sensation bilaterally -microalb/cr ratio elevated (180) in 08/2019, seen by nephro and instructed to work on control of HTN and DM; improved to 68 in 01/2021 but still elevated -tingling of RLE -lifestyle modifications Plan: -POC A1c today 6.4 -continue diet control (not on meds) -instructed to go see optho; agreeable -urine micro/cr ratio ordered #Hx TIA?? #HLD -home meds: ASA + atorvastatin: does not take either consistently Plan: -continue ASA and atorvastatin, reiterated importance of compliance; refilled statin #Isolated proteinuria with morphologic lesion -seen by nephro and instructed to work on control of HTN and DM ?? #Pericardial cyst -noted on outside imaging, but not on echo in 06/2020 -previous PODIATRY DOCTOR discussed w/ cards: recommended yearly echo x 2, then every 5 years if stable -per PODIATRY DOCTOR report: usually benign if not enlarging??per Dr. Saldana -echo done in 04/2021 w/ no pericardial cyst seen & EF 54% Plan: -continue monitoring w/ echo (yearly echo x 2, then every 5 years if stable) -due for echo; ordered ?? #Hx Microcytosis, resolved -no anemia -previously prescribed iron -colonoscopy normal Plan: -continue iron supplementation; refilled today -ordered CBC Preventative Care/Health Maintenance: Patient currently unable to [...] UTD DM screening: UTD Depression screening: PHQ-9: 0 Cervical cancer screening: believes UTD done in [place] Preconception counseling: n/a Breast ca screening: ordered Osteoporosis screening: n/a Patient discussed with attending physician, Dr. Casarez, who agrees with my assessment and plan. Return to clinic in 3 months. Rosalee Cano MD2:12 PM Associated attestation - Ronald Casarez MD - 11/28/2022 3:30 PM CDT Attending Physician Attestation I discussed the patient and reviewed the resident's note at the time of the visit and I agree with history, physical exam, assessment, and plan. Date of service: 11/22/2022 Ronald Casarez MD documented in this encounter Plan of Treatment Upcoming Encounters Date Type Department Care Team (Late st Contact Info) Description 12/15/2024 1:00 PM CDT Office Visit [facility] - Internal Med [address] [facility], [place] [address] Neil Velasquez MD [address] [facility] [place] [address] Scheduled Orders Name Type Priority Associated Diagnoses Orde r Schedule ECHO COMPLETE Echocardiography Radiant Routine Pericardial cyst (HCC) Expected: 11/22/2022, Expires: 11/23/2023 BASIC METABOLIC PANEL (CALCIUM TOTAL) Lab Routine 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) Ordered: 11/22/2022 CBC W/O DIFFERENTIAL Lab Routine 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) Ordered: 11/22/2022 LIPID PROFILE Lab Routine 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) Ordered: 11/22/2022 MICROALB/CREAT RATIO URINE RANDOM PANEL Lab Routine 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) Ordered: 11/22/2022 documented as of this encounter Procedures Procedure Name Priority Date/Time Associated Diagnosis Comments HEMOGLOBIN A1C - POINT OF CARE (AMB) [facility] Routine 11/22/2022 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) documented in this encounter Results * MAMMO [...] ??BI-RADS CATEGORY 1: NEGATIVE. > Dictated by Gneny Umana DO (limited radiology technician). I, Annita Mei MD have personally reviewed and interpreted this examination/study. > Interpreting Provider: Annita Mei MD on 12/28/2022 10:31 AM Narrative 12/28/2022 10:31 AM CDT EXAMINATION: DIGITAL MAMMO BILAT SCREENING W JAY AND WITH CAD LOCATION: [facility] DATE: ??12/28/2022 HISTORY: ??Screening. History of [...] - POINT OF CARE (AMB) [facility] (11/22/2022) Hemoglobin A1c POCT 6.4 % BLOOD SPECIMEN / Unknown 11/22/2022 Ronald Casarez MD LAB - POINT OF CARE ORDERABLES documented in this encounter Visit Diagnoses [...] (TIA), and cerebral infarction without residual deficits Essential hypertension Pericardial cyst (HCC) Other specified congenital anomaly of heart Nephropathy Nephritis and nephropathy, not specified as acute or chronic, with unspecified pathological lesion in kidney Microcytosis Other abnormality of red blood cells Iron deficiency anemia, unspecified iron deficiency anemia type Isolated proteinuria with morphologic lesion Nephritis and nephropathy, not specified as acute or chronic, with unspecified pathological lesion in kidney Preventative health care Routine general medical examination at a health care facility Preventative health care Routine general medical examination at a health care facility documented in this encounter Care Teams Churn Driller Helper Relationship Specialty Start Date End Date Ronald Casarez MD [address] [place] [phone] PCP - General Internal Medicine 11/22/22 11/22/22 Rosalee Cano MD [address] DIV [place] [address] Resident Internal Medicine 12/02/21 03/20/23 Rosalee Cano MD [address] OF [facility] [place] [place] [address] Resident - PCP Internal Medicine 02/20/22 03/13/23 documented as of this encounter
--- OUTSIDE RECORDS SUMMARY | 2024-08-02 10:00 | XMS_ITS | Encounter Summary ---
Author Organization [facility] Health Address [address] [place] [address] Care Team Providers Care Digital Watch Assembler Name Role Phone Rosalee Cano MD Unavailable [phone] Rosalee Cano MD Unavailable [phone] Ronald Casarez MD Primary Care Provider Encounter Details Date Type Department Care Team (Latest Contact Info) Description 12/28/2022 Travel Social History Tobacco Use Types Packs/Day [...] Med [address] [facility], [place] [phone] Neil Velasquez MD [address] [facility] [place] [address] documented as of this encounter Visit Diagnoses Not on filedocumented in this encounter Care Teams Digital Watch Assembler Relationship Specialty Start Date End Date Ronald Casarez MD [address] [place] [phone] PCP - General Internal Medicine 12/06/22 05/20/23 Rosalee Cano MD [address] DIV [place] [address] Resident Internal Medicine 12/02/21 03/20/23 Rosalee Cano MD [address] DIV OF [facility] [place] [address] Resident - PCP Internal Medicine 02/20/22 03/13/23 documented as of this encounter
--- OUTSIDE RECORDS SUMMARY | 2024-08-02 10:00 | XMS_ITS | Encounter Summary ---
Author Organization [facility] Health Address [address] [facility] [place] [address] Care Team Providers Care Vice President Of Manufacturing Name Role Phone Rosalee Cano MD Unavailable [phone] Ronald Casarez MD Primary Care Provider [phone] Randi Gomes DO Unavailable [phone] Encounter Details Date Type Department Care Team (Latest Contact Info) Description 03/14/2023 2:30 PM CDT - 03/14/2023 11:59 PM CDT Hospital Encounter [facility] OP DRAW STATION [address] [place] [phone] Discharge Disposition: Home or Self Care Social [...] TID. 100 11 03/13/2017 VITAMIN D PO bisacodyl EC (DULCOLAX) 5 MG tablet Take all 4 tablets at noon the day before your colonoscopy. 4 tablet 11/29/2020 05/21/2023 Capsaicin 0.025 %Indications: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) by Apply externally route 3 times daily 04/06/2021 05/21/2023 carvedilol (Coreg) 25 MG tabletIndications:Essen tial hypertension Take 1 (one) tablet by mouth 2 times daily with morning and evening meal 60 tablet 02/27/2023 03/21/2023 hydrALAZINE (Apresoline) 25 MG tabletIndications:Essen tial hypertension Take 1 (one) tablet by mouth 3 times daily FOR BLOOD PRESSURE 270 tablet 4 11/22/2022 05/21/2023 hydrALAZINE (Apresoline) 50 MG tabletIndications:Essen tial hypertension Take 1 (one) tablet by mouth 3 times daily 270 tablet 02/21/2023 05/11/2023 lisinopril (Prinivil; Zestril) 40 MG tabletIndications:Essen tial hypertension Take 1 (one) tablet by mouth once daily 30 tablet 03/14/2023 04/20/2023 lisinopril (Prinivil; Zestril) 20 MG tabletIndications:Essen tial hypertension Take 1 (one) tablet by mouth once daily 30 tablet 02/27/2023 04/20/2023 documented as of this encounter Plan of Treatment Upcoming Encounters Date Type Department Care Team (Late st Contact Info) Description 12/15/2024 1:00 PM CDT Office Visit [facility] - Internal Med [address] [facility] [place] [phone] Neil Velasquez MD [address] [facility] [place] [address] documented as of this encounter Procedures Procedure Name Priority Date/Time Associated Diagnosis Comments TSH REFLEX FREE T4 Routine 03/14/2023 2: 40 PM CDT Essential hypertension MICROALB/CREAT RATIO URINE RANDOM PANEL Routine 03/14/2023 2:40 PM CDT 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) Essential hypertension HEMOGLOBIN A1C Routine 03/14/2023 2:40 PM CDT 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) COMPREHENSIVE METABOLIC PANEL Routine 03/14/2023 2:40 PM CDT Essential hypertension Isolated proteinuria with morphologic lesion LIPID PROFILE Routine 03/14/2023 2:40 PM CDT 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) Hyperlipidemia, unspecified hyperlipidemia type documented in this encounter Results * (ABNORMAL) HEMOGLOBIN A1C (03/14/2023 2:40 PM CDT) Hemoglobin A1c 6.1(H) <=5.6 % 03/15/2023 8:59 AM CDT [facility] Estimated Average Glucose 128 mg/dL 03/15/2023 8:59 AM [facility] Comment: HbA1c Interpretation: Normal : < 5.7% Pre-diabetes: 5.7-6.4% Diabetes: Equal to or greater than 6.5% Test results diagnostic of diabetes should be repeated for confirmation. Treatment target values recommended by ADA and other clinical organizations should be used to evaluate metabolic control in patients. Reference: [place] [employer], Standards of Care in Diabetes [...] Razo II, MD LAB - CHEMISTRY ORDERABLES [facility] [address] [place] [address], [facility] [phone] * (ABNORMAL) MICROALB/CREAT RATIO URINE RANDOM PANEL (03/14/2023 2:40 PM CDT) Albumin Random Urine 137.8 Not Established ug/mL 03/14/2023 3:25 PM CDT [facility] Creatinine Urine >400.00 Not Established mg/dL 03/14/2023 3:25 PM CDT [facility] Urine Albumin/Creati nine Ratio <34(H) <30 mg/g 03/14/2023 3:25 PM CDT [facility] Urine URINE SPECIMEN OBTAINED BY CLEAN CATCH PROCEDURE / Unknown Collection / Unknown 03/14/2023 2:40 PM CDT 03/14/2023 2:53 PM CDT Paul Razo II, MD LAB - URINE CHEM ISTRY ORDERABLES Performing Organization Address [facility]/State/ZIP Co de Phone Number [facility] [address] [place] [address], [facility] [phone] * (ABNORMAL) LIPID PROFILE (03/14/2023 2:40 PM CDT) Pathologist [facility] Cholesterol Total 170 <200 mg/dL 03/14/2023 3:27 PM [facility] HDL 47 >40 mg/dL 03/14/2023 3:27 PM [facility] Comment: ATP III Classification of HDL Cholesterol: ? <40 mg/dL: ??Considered a major risk factor. ? >60 mg/dL: ??Considered a negative risk factor. ? LDL Calculated 103(H) <100 mg/dL 03/14/2023 3:27 PM T [facility] Comment: ATP III Classification of LDL Cholesterol: ?<100 mg/dL: ??Optimal ? 100 - 129 mg/dL: ??Near Optimal/Above Optimal ? 130 - 159 mg/dL: ??Borderline High ? 160 - 189 mg/dL: ??High ?>190 mg/dL: ??Very High ? Triglycerides 98 <150 mg/dL 03/14/2023 3:27 PM [facility] Comment: ATP III Classification of Triglycerides: ?<150 mg/dL: ??Normal ? 150 - 199 mg/dL: ??Borderline High ? 200 - 400 mg/dL: ??High ?>500 mg/dL: ??Very High Blood BLOOD SPECIMEN / Unknown Lab Venipuncture / Unknown 03/14/2023 2:40 PM CDT 03/14/2023 2:56 PM CDT Paul Razo II, MD LAB - CHEMISTRY ORDERABLES [facility] [address] [place] [address], [facility] [phone] * (ABNORMAL) COMPREHENSIVE METABOLIC PANEL (03/14/2023 2:40 PM CDT) BUN 17 7 - 26 mg/dL 03/14/2023 3:27 PM [facility] Creatinine 1.08(H) 0.56 - 0.96 mg/dL 03/14/2023 3:27 PM [facility] Sodium 139 136 - 145 mmol/L 03/14/2023 3:27 PM [facility] Potassium 3.8 3.5 - 4.5 mmol/L 03/14/2023 3:27 PM [facility] Chloride 105 98 - 107 mmol/L 03/14/2023 3:27 PM [facility] CO2 29 22 - 29 mmol/L 03/14/2023 3:27 PM [facility] Glucose 118(H) 70 - 115 mg/dL 03/14/2023 3:27 PM [facility] Calcium 9.2 8.4 - 10.2 mg/dL 03/14/2023 3:27 PM [facility] Protein Total 7.3 6.0 - 8.3 g/dL 03/14/2023 3:27 PM [facility] Albumin 3.6 3.4 - 5.0 g/dL 03/14/2023 3:27 PM [facility] Bilirubin Total 0.7 0.2 - 1.2 mg/dL 03/14/2023 3:27 PM [facility] Alkaline Phosphatase 79 40 - 150 U/L 03/14/2023 3:27 PM [facility] ALT 15 5 - 55 U/L 03/14/2023 3:27 PM [facility] AST 15 5 - 34 U/L 03/14/2023 3:27 PM [facility] Anion Gap 9 8 - 18 03/14/2023 3:27 PM [facility] BUN/Creatinine Ratio 16 7 - 23 03/14/2023 3:27 PM [facility] Osmolality Calculated 291 270 - 300 mOsm/kg 03/14/2023 3:27 PM [facility] Albumin/Globulin Ratio 1.0(L) 1.1 - 2.3 03/14/2023 3:27 PM [facility] eGFR by CKD-EPI 60(L) >=90 mL/min/1.7 3 m2 03/14/2023 3:27 PM [facility] Blood BLOOD SPECIMEN / Unknown Lab Venipuncture / Unknown 03/14/2023 2:40 PM CDT 03/14/2023 2:56 PM CDT Paul Razo II, MD LAB - CHEMISTRY ORDERABLES Performing Organization Address [facility]/State/ZIP Co de Phone Number [address] [address], [facility] [phone] * TSH REFLEX FREE T4 (03/14/2023 2:40 PM CDT) TSH 0.882 0.350 - 4.940 uIU/mL 03/14/2023 3:44 PM CDT [facility] Blood BLOOD SPECIMEN / Unknown Lab Venipuncture / Unknown 03/14/2023 2:40 PM CDT 03/14/2023 2:56 PM CDT Paul Razo II, MD LAB - CHEMISTRY ORDERABLES [facility] [address] [place] [address], [facility] [phone] documented in this encounter Visit Diagnoses Diagnosis Essential hypertension- Primary Isolated proteinuria with morphologic lesion Nephritis and nephropathy, not specified as acute or chronic, with unspecified pathological lesion in kidney 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) Type II or unspecified type diabetes mellitus with unspecified complication, not stated as uncontrolled Hyperlipidemia, unspecified hyperlipidemia type documented in this encounter Care Teams Vice President Of Manufacturing Relationship Specialty Start Date End Date Ronald Casarez MD [address] [place] [address] PCP - General Internal Medicine 12/06/22 05/20/23 Rosalee Cano MD [address] [facility] [address] DIV OF [place] [address] Resident Internal Medicine 12/02/21 03/20/23 Randi Gomes DO [address] [facility] [place] [address] Resident - PCP Internal Medicine 03/14/23 07/02/24 documented as of this encounter
--- OUTSIDE RECORDS SUMMARY | 2024-08-02 10:00 | XMS_ITS | Encounter Summary ---
Author Organization [facility] Health Address [address] [facility] [place] [address] Care Team Providers Care Director Nursery [employer] Name Role Phone Ronald Casarez MD Primary Care Provider Randi Gomes DO Unavailable [phone] Reason for Visit * Reason Comments Refill Request Encounter Details Date Type Department Care Team (Late st Contact Info) Description 03/27/2023 Refill [facility] - [facility] Med [address] [facility], [place] [id number] Selwyn Hyde MD [address] [facility]?? [place] [address] Refill Request Social History Tobacco Use Types [...] Telephone Encounter - Shelbie Turner LPN - 03/27/2023 7:23 AM CDT Refill Request Mauricio Flores Recent Visits Date Type Provider Dept 03/14/23 Office Visit Randi Gomes DO [facility] 2l 11/22/22 Office Visit Rosalee Cano MD [facility] 2l 11/16/21 Office Visit Rosalee Cano MD [facility] 2l Showing recent visits within past 540 days with a meds authorizing provider and meeting all other requirements Future Appointments Date Type Provider Dept 04/25/23 Appointment Randi Gomes DO [facility] 2l Showing future appointments within next 150 days with a meds authorizing provider and meeting all other requirements Last Refill: 03.14.23 Allergies: Allergies Allergen Reactions ??? Hydrocodone-Acetaminophen Rash Vicodin ??? [place] Itching Pended Medication Order: Requested Prescriptions Pending Prescriptions Disp Refills ??? lisinopril (Prinivil; Zestril) 20 MG tablet [Pharmacy Med Name: LISINOPRIL 20 MG TABLET] 30 tablet 0 Sig: TAKE 1 TABLET BY MOUTH EVERY DAY documented in this encounter Plan of Treatment Upcoming Encounters Date Type Department Care Team (Late st Contact Info) Description 12/15/2024 1:00 PM CDT Office Visit [facility] [address] [facility], [place] [address] Neil Velasquez MD [address] [facility]?? [place] [address] documented as of this encounter Visit Diagnoses Diagnosis Essential hypertension documented in this encounter Care Teams Director Nursery [employer] Relationship Specialty Start Date End Date Ronald Casarez MD [address] [place] [phone] PCP - General Internal Medicine 12/06/22 05/20/23 Randi Gomes DO [address] [facility] [place] [address] Resident - PCP Internal Medicine 03/14/23 07/02/24 documented as of this encounter
--- OUTSIDE RECORDS SUMMARY | 2024-08-02 10:00 | XMS_ITS | Encounter Summary ---
Author Organization [facility] Health Address [address] [facility] [place] [address] Care Team Providers Care Multi Punch Operator Name Role Phone Rosalee Cano MD Primary Care Provider [phone] Reason for Visit * Reason Onset Date Comments Follow-up 07/19/2021 Encounter Details Date Type Department Care Team (Late st Contact Info) Description 07/19/2021 Telephone [facility] Neph[facility] [address] [place] [address] Ayesha Lopez RN Follow-up Social History Tobacco Use Types Packs/Day Years [...] encounter Miscellaneous Notes * Telephone Encounter - Kelli Bentley RN - 07/19/2021 2:52 PM CST Patient returned call. Informed of message of Ayesha NI. Voiced understanding. KEEPER * Telephone Encounter - Ayesha Lopez RN - 07/19/2021 2:32 PM CST No identified VM. Message to pt; please come early for scheduled appt with Dr. Fu 07/22/21 at 10am to have labs completed. Lab orders have been placed at [facility]. KEEPER documented in this encounter Plan of Treatment Upcoming Encounters Date Type Department Care Team (Late st Contact Info) Description 12/15/2024 1:00 PM CDT Office Visit [facility] - Internal Med [address] [facility], [place] [phone] Neil Velasquez MD [address] [facility] [place] [address] documented as of this encounter Visit Diagnoses Not on filedocumented in this encounter Care Teams Multi Punch Operator Relationship Specialty Start Date End Date Rosalee Cano MD [address] [facility] 2L DIV [place] [address] PCP - General 05/04/21 12/01/21 documented as of this encounter
--- OUTSIDE RECORDS SUMMARY | 2024-08-02 10:00 | XMS_ITS | Encounter Summary ---
Author Organization [facility] Health Address [address] [facility] [place] [address] Care Team Providers Care Rv Technician Name Role Phone Rosalee Cano MD Primary Care Provider [phone] Reason for Visit * Reason Onset Date Comments MEDICATION REFILL 06/17/2021 Encounter Details Date Type Department Care Team (Late st Contact Info) Description 06/17/2021 Refill [facility] General Internal Medicine [address] [place] [address], [place] [address] Rosalee Cano MD [address] [place] [address] OF [facility] [place] [address] MEDICATION REFILL Social History Tobacco Use Types [...] Telephone Encounter - Shelbie Turner LPN - 06/22/2021 3:05 PM MEDICAL RECORDS ASSISTANT Pt states she needs refills on both medications. CAL RECORDS ASSISTANT * Telephone Encounter - Lucia Perry RN - 06/17/2021 11:36 AM CDT Refill Request Mauricio Damian Mark NEREIDA: 04/06/21 NOV scheduled: 11/09/21 LRF: 05/10/21 Qty Disp: 90 # of refills: 0 Allergies: Allergies Allergen Reactions ??? Hydrocodone-Acetaminophen Rash Vicodin ??? [place] Itching Pended Medication Order: Requested Prescriptions Pending Prescriptions Disp Refills ??? hydrALAZINE (APRESOLINE) 50 MG tablet 90 tablet 0 Sig: Take 1 (one) tablet by mouth 3 times daily documented in this encounter Plan of Treatment Upcoming Encounters Date Type Department Care Team (Late st Contact Info) Description 12/15/2024 1:00 PM CDT Office Visit [facility] - Internal Med [facility] [facility], [place] [address] Neil Velasquez MD [address] [facility] [place] [address] documented as of this encounter Visit Diagnoses Diagnosis Essential hypertension documented in this encounter Care Teams Rv Technician Relationship Specialty Start Date End Date Rosalee Cano MD [address] [facility] 2L DIV OF [facility] [place] [address] PCP - General 05/04/21 12/01/21 documented as of this encounter
--- OUTSIDE RECORDS SUMMARY | 2024-08-02 10:00 | XMS_ITS | Encounter Summary ---
Author Organization [facility] Health Address [address] [facility] [place] [address] Care Team Providers Care School Photograph Editor Name Role Phone Rosalee Cano MD Primary Care Provider [phone] Reason for Referral * Radiology Services (Routine) - Closed Specialty Diagnoses / Procedures Referred By Contac t Referred To Contact Echosonography Diagnoses Pericardial cyst (HCC) Procedures ECHO COMPLETE Lacy Mendoza DO [address] [facility] 2L DIV OF [facility] [place] [address] [facility] Echo [address] [place] [address] Referral ID Status Reason Start Date Expiration Date Visits Re quested Visits Authorized [id number] Closed 04/06/2021 04/06/2022 1 1 Reason for Visit * Reason Comments Hypertension Encounter Details Date Type Department Care Team (Latest Contact Info) Description 04/06/2021 2:00 PM CDT Office Visit [facility] Internal Medicine [address] 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) (Primary Dx); Essential hypertension; Pericardial cyst (HCC); Screening for osteoporosis; Iron deficiency anemia, unspecified iron deficiency anemia type; Chronic heart failure with preserved ejection fraction (HCC) Social History Tobacco Use Types Packs/Day [...] Sign Reading Time Taken Comments Blood Pressure 160/100 04/06/2021 3:08 PM CDT Pulse 96 04/06/2021 2:09 PM CDT Temperature 36.7 ??C (98.1 ??F) 04/06/2021 2:09 PM CD T Respiratory Rate 18 04/06/2021 2:09 PM CDT Oxygen Saturation 97% 04/06/2021 2:09 PM CDT Inhaled Oxygen Concentration - - Weight 123.4 kg (272 lb) 04/06/2021 2:09 PM CDT Height 167.6 cm (5' 6 ) 04/06/2021 2:09 PM CDT Body Mass Index 43.9 04/06/2021 2:09 PM CDT documented in this encounter Patient Instructions * Patient Instructions* Ho Kapoor - 04/06/2021 2:09 PM CDT [facility] General Internal Medicine is committed to providing you with the best care possible. We areworking towards becoming a Patient Centered Medical Home (PCMH), a model of care that puts patientsat the forefront of care. PCMH Centers build better relationships between patients and their clinical care teams. Practices that earn recognition have made a commitment to continuous quality improvement and a patient-centered approach to care. Shared decision making is a ortega component of patient-centered health care. It is a process in whichclinicians and patients work together to make decisions based on clinical evidence that balances risk and expected outcomes with patient preferences and values. How to Contact Us Between Office Visits For scheduling routine appointments, requesting refills or leaving a message for your doctor, the office phone is [phone]. You will be given options to get [...] primary care provider. Please call us at [phone], option 1, then option 1 in the morning you would like to be seen. Our fax number is [phone]. Instructions for reaching the practice after office hours For urgent concerns that cannot wait until phone lines are open on the next business day, please call [phone] to speak to the covering General Internal Medicine provider. Identify yourself as a patient in our practice and give the mva reactor operator your doctor's name. The mva reactor operator will contact the physician front desk. You can generally expect a return call within 30 minutes. Prescription Refills Contact your pharmacy to request all refills. You may also send a Ui Link message for refills. Please allow a minimum of 48-72 hours for your prescription to be completed. Your pharmacy will notify you when your prescription is ready to be picked up. SCHEDULE YOUR OWN APPOINTMENT AT [facility] We are excited to announce that some [facility] appointments can now be scheduled online. If you are not able to access the type of appointment that you need using this service, our [facility] Scheduling department will be happy to continue to serve you. Use one of these options to schedule your next appointment today: ??? Access self-scheduling options by visiting the [facility] Online Scheduling Webpage. ??? Make an appointment by calling [facility] Central [phone] Visit our website at [email or web address] for information about our practice and an interactive health encyclopedia. documented in this encounter Progress Notes * Angel Bedoya DO - 04/06/2021 2:46 PM CDT [facility] General Internal Medicine Established Patient Note CC: Chief Complaint Patient presents with ??? Hypertension Resident PCP: Dr. Cano Assessment & Plan: PMHx significant for HTN, T2DM, diabetic neuropathy, hx TIA, HLD, pericardial cyst, microcytosis PMHx significant for HTN, NIDDM2 c/b diabetic neuropathy, hx TIA, HLD, pericardial cyst, microcytic anemia presenting for routine follow-up #Type 2 diabetes mellitus with complications A: Well controlled, POC A1C in clinic of 6.4. On glipizide alone. Patient making effort to reduce sugar intake. Plan: - HEMOGLOBIN A1C - POINT OF CARE (AMB) [facility], resulted at 6.4 - refilled gabapentin (NEURONTIN) 100 MG capsule, patient taking 300mg nightly. Offered to increasedosage to attempt better symptomatic control, patient adamant in not wanting any dosage increase. - Ref to Ophthalmology - [facility] for diabetic eye exam - Capsaicin 0.025 % for neuropathic pain #Essential hypertension A: Elevated reading in clinic, however patient did not take morning carvedilol and midday hydralazine due to appointment. Plan: - refilled carvedilol (COREG) 25 MG tablet, refilled hydralazine 75mg tid - continue lisinopril 40mg daily - counseled low salt diet and exercise #Heart failure with preserved ejection fraction #hx of Pericardial cyst A: Echo in 2019 with grade II diastolic dysfunction. Has documented history of pericardial cyst, nocyst seen on 2018 or 2019 echocardiograms Plan: ECHO COMPLETE to determine current cardiac function and evaluate for presence (or absence) ofpericardial cyst #Screening for osteoporosis Plan: BONE DENSITY AXIAL SKELETON #Iron deficiency anemia, unspecified iron deficiency anemia type A: hgb 12.4 in 01/2021 Plan:refilled ferrous sulfate 325 (65 FE) MG tablet Preventative Care/Health Maintenance: End of life planning: NA Immunizations - COVID19: Pfizer, completely 11/2020 - Influenza: NA - Tdap: 2019 - PPSV23: NA - Zoster: NA - HPV: NA Colorectal cancer screening: neg 12/01 for malignancy, repeat in 2025 due to FH of malignancy Lung cancer screening: NA HIV, Hep C: Hep C neg 2014, no HIV test on file Cardiovascular prevention: lipids done 01/2021, diabetes screening NA has diabetes, tobacco useNA Depression screening: neg Female specific preventative care: Cervical cancer screening: patient reports done at OSH Preconception counseling: NA Breast ca screening: patient reports done at OSH Osteoporosis screening: Ordered 03/2021 Patient discussed with attending physician, Dr. Mendoza, who agrees with my assessment and plan. Return in about 6 months (around 10/07/2021). History of Present Illness: Mauricio Flores is a 55 year old female presenting to GI clinic for routine followup . States she does not monitor her pressures at home, but has a monitor so will start to check. Has been cutting down on sugar to lose weight. A1C POC 6.4 in clinic today. Requested multiple med refills Recheck of BP 160/100, patient reported that due to appointment had not taken her hydralazine or carvedilol today Past Medical/Surgical/Family/Social History: Reviewed and updated in [employer] History tab Medications: Reviewed and updated in [facility] Medications tab Current Outpatient Medications Medication Sig Dispense Refill ??? Ascorbic Acid (ALPHONSE-C PO) ??? aspirin (ASPIRIN) 81 MG tablet 100 tablet ??? atorvastatin (LIPITOR) 40 MG tablet Take 1 (one) tablet by mouth at bedtime 90 tablet 1 ??? bisacodyl EC (DULCOLAX) 5 MG tablet Take all 4 tablets at noon the day before your colonoscopy.(Patient not taking: Reported on 04/06/2021) 4 tablet 0 ??? Blood Glucose Monitoring Suppl (ACCU-CHEK GUIDE) w/Device KIT (Patient not taking: Reported on 04/06/2021) ??? Capsaicin 0.025 % by Apply externally route 3 times daily ??? carvedilol (COREG) 25 MG tablet Take 1 (one) tablet by mouth 2 times daily with morning and evening meal 60 tablet 1 ??? ferrous sulfate 325 (65 FE) MG tablet Take 1 (one) tablet by mouth 2 times daily with morning and evening meal 60 tablet 4 ??? gabapentin (NEURONTIN) 100 MG capsule Take 1 (one) capsule by mouth 3 times daily 90 capsule 4 ??? glipiZIDE (GLUCOTROL) 5 MG tablet Take 1 (one) tablet by mouth 2 times daily, before breakfast and supper 180 tablet 2 ??? Glucose Blood (BLOOD GLUCOSE TEST STRIPS) STRP Use 1 strip TID. (Patient not taking: Reported on 06/07/2020) 100 strip 11 ??? hydrALAZINE (APRESOLINE) 25 MG tablet Take 1 (one) tablet by mouth 3 times daily FOR BLOOD PRESSURE 270 tablet 4 ??? hydrALAZINE (APRESOLINE) 50 MG tablet Take 1 (one) tablet by mouth 3 times daily 90 tablet 0 ??? LANCETS SUPER THIN 28G MISC Use TID. (Patient not taking: Reported on 06/07/2020) 100 11 ??? lisinopril (PRINIVIL; ZESTRIL) 40 MG tablet Take 1 (one) tablet by mouth once daily 90 tablet 1 ??? polyethylene glycol 3350 (MIRALAX) 17 GM/SCOOP powder Mix entire bottle with 64oz of clear liquid. Drink 1/2 of mixture at 5pm the night before colonoscopy, 1/2 at 4am the day of colonoscopy. (Patient not taking: Reported on 04/06/2021) 238 g 0 ??? VITAMIN D PO No current facility-administered medications for this visit. Allergies: Reviewed and updated in [employer] Allergies tab Review of Systems: Review of Systems (positives in bold): Constitutional: Denies fevers, chills, fatigue, appetite changes, unexpected weight loss. Eyes: Denies discharge, conjunctival injection, visual disturbance. Ears, nose, mouth, throat, and face: Denies otorrhea, sore throat, rhinorrhea. Respiratory: Denies cough, dyspnea, wheezing, pleuritic chest pain. Cardiovascular: Denies chest pain, palpitations, edema. Gastrointestinal: Denies abdominal pain, nausea, vomiting, constipation, diarrhea, hematemesis, hematochezia, melena. Genitourinary: Denies dysuria, polyuria, hematuria Hematologic/lymphatic: Denies bleeding, easy bruising, lymphadenopathy Integument: Denies rash, ulcers, pruritus Musculoskeletal: Denies myalgias, arthralgias, joint swelling Neurological: Denies dizziness, lightheadedness, headache, syncope, seizures. Physical Examination: BP 160/100 Pulse 96 Temp 98.1 ??F (36.7 ??C) Resp 18 Ht 5' 6 (1.676 m) Wt 272 lb (123.4 kg) SpO2 97% BMI 43.9 kg/m2 GEN: middle aged woman in NAD, AO4, cooperative and pleasant. HEENT: NCAT, EOMI, MMM, no lymphadenopathy noted. RESP: Clear to auscultation bilaterally. No rales, rhonchi, or wheezes noted. CARDIO: Regular rate and rhythm, normal S1 and S2, No murmurs or rubs noted. GI: Abdomen soft, non tender, non-distended, +BS, no guarding or rebound tenderness. EXT: No edema or cyanosis. Normal ROM. Dorsalis pedis and radial pulses 2+ NEURO: No focal deficits. CN II-XII grossly intact. PSYCH: Appropriate mood and affect. SKIN: Warm and dry, no rashes or lesions noted. Labs: Personally reviewed. Pertinent for: POC A1C 6.4 in clinic today Imaging/Other diagnostic testing: Personally reviewed. Pertinent for: Endoscopy from 11/2020 without polyps, + for hemorrhoids Lab Preference: [address] [place] [id number] Angel Bedoya DO 04/06/2021 Coding Rationale New or est? Established Patient Total time spent on date of encounter: 30 minutes Highest problem complexity: 2 or more stable chronic illnesses Data review: Ordering of test(s): 1 unique test(s) ordered Suggested code: 43415 Associated attestation - Lacy Mendoza DO - 04/14/2021 11:51 PM CDT Mauricio Flores is a 55 year old female I reviewed the history and physical exam with Dr. Bedoya at the time of the visit. Patient presents with: Here for follow up of high blood pressure, diabetes, obesity, neuropathy. Only takes gabapentin at night due to sleepiness. A1c improved today--on glipizide (didn't tolerate metformin). Has been losing weight successfully. BP up today, didn't take hydralazine today. Has COVID vaccine. History and examination as documented by resident: BP 160/100 Pulse 96 Temp 98.1 ??F (36.7 ??C) Resp 18 Ht 5' 6 (1.676 m) Wt 272 lb (123.4 kg) SpO2 97% BMI 43.9 kg/m2 I confirm assessment and plan as follows: Htn: continue meds DM: continue meds, Neuropathy: continue gabapentin, ok to increase nightly dose Lacy Mendoza DO 04/06/2021 documented in this encounter Plan of Treatment Upcoming Encounters Date Type Department Care Team (Late st Contact Info) Description 12/15/2024 1:00 PM CDT Office Visit [facility] - Internal Med [address] [facility], [place] [address] Neil Velasquez MD [address] [facility] [place] [address] documented as of this encounter Procedures Procedure Name Priority Date/Time Associated Diagnosis Comments HEMOGLOBIN A1C - POINT OF CARE (AMB) [facility] Routine 04/06/2021 2:21 PM CDT 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) documented in this encounter Results * ECHO COMPLETE (05/04/2021 3:04 PM CDT) Anatomical Region Laterality Modality Chest Echo 05/04/2021 2:30 PM CDT Narrative Procedure Note Ebony Tucker MD - 05/04/2021 Lacy Mendoza DO ECHOCARDIOGRAPHY RAD IANT * HEMOGLOBIN A1C - POINT OF CARE (AMB) [facility] (04/06/2021 2:21 PM CDT) Hemoglobin A1c POCT 6.4 % BLOOD SPECIMEN / Unknown 04/06/2021 2:21 PM CDT Lacy Mendoza DO LAB - POINT OF CARE ORDERABLES documented in this encounter Visit Diagnoses Diagnosis 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)- Primary Type II or unspecified type diabetes mellitus with unspecified complication, not stated as uncontrolled Essential hypertension Pericardial cyst (HCC) Other specified congenital anomaly of heart Screening for osteoporosis Special screening for osteoporosis Iron deficiency anemia, unspecified iron deficiency anemia type Chronic heart failure with preserved ejection fraction (HCC) Pericardial cyst (HCC) Other specified congenital anomaly of heart documented in this encounter Care Teams School Photograph Editor Relationship Specialty Start Date End Date Rosalee Cano MD [address] [facility] 2L DIV OF [facility] [place] [address] PCP - General 12/10/20 04/12/21 documented as of this encounter
--- OUTSIDE RECORDS SUMMARY | 2024-08-02 10:00 | XMS_ITS | Encounter Summary ---
Author Organization [facility] Health Address [address] [place] [address] Care Team Providers Care Elevator Constructor Supervisor Name Role Phone Lala Tello MD Primary Care Provider [phone] [phone] Rosalee Cano MD Unavailable Rosalee Cano MD Unavailable Reason for Visit * Reason Onset Date Comments MEDICATION REFILL 09/04/2022 Encounter Details Date Type Department Care Team (Late st Contact Info) Description 09/04/2022 Refill [facility] Internal [facility] [address] [place] [address], [place] [address] Rosalee Cano MD [address] [place] [address] OF [facility] [place] [address] MEDICATION REFILL Social History Tobacco Use Types [...] Telephone Encounter - Shelbie Turner LPN - 09/04/2022 2:51 PM SUPERVISOR [employer]ITTING [employer] SHIPPING Refill Request Mauricio Flores NEREIDA: 11.16.21Jun scheduled: Visit date not found LRF: 04.12.22 Qty Disp: 60 # of refills: 5 Allergies: Allergies Allergen Reactions ??? Hydrocodone-Acetaminophen Rash Vicodin ??? [place] Itching Pended Medication Order: Requested Prescriptions Pending Prescriptions Disp Refills ??? carvedilol (Coreg) 25 MG tablet 60 tablet 5 Sig: Take 1 (one) tablet by mouth 2 times daily with morning and evening meal [employer] documented in this encounter Plan of Treatment Upcoming Encounters Date Type Department Care Team (Late st Contact Info) Description 12/15/2024 1:00 PM CDT Office Visit [facility] - Internal Med [address] [facility], [place] [address] Neil Velasquez MD [address] [facility] [place] [address] documented as of this encounter Visit Diagnoses Diagnosis Essential hypertension documented in this encounter Care Teams Elevator Constructor Supervisor Relationship Specialty Start Date End Date Lala Tello MD PCP - General Internal Medicine 12/02/21 11/21/22 Rosalee Cano MD [address] 2L DIV OF [facility] [place] [address] Resident Internal Medicine 12/02/21 03/20/23 Rosalee Cano MD [address] 2L DIV OF [facility] [place] [address] Resident - PCP Internal Medicine 02/20/22 03/13/23 documented as of this encounter
--- OUTSIDE RECORDS SUMMARY | 2024-08-02 10:00 | XMS_ITS | Encounter Summary ---
Author Organization [facility] Health Address [address] [facility] [place] [address] Care Team Providers Care Blister Packing Machine Tender Name Role Phone Lala Tello MD Primary Care Provider [phone] Rosalee Cano MD Unavailable Rosalee Cano MD Unavailable Reason for Visit * Reason Onset Date Comments MEDICATION REFILL 04/11/2022 Encounter Details Date Type Department Care Team (Late st Contact Info) Description 04/11/2022 Refill [facility] Internal Medicine [address] [place] [address], [place] [address] Rosalee Cano MD [address] [place] [address] OF [facility] INTERNAL [place]IC[place] [address] MEDICATION REFILL Social History Tobacco Use Types [...] Telephone Encounter - Shelbie Turner LPN - 04/11/2022 2:19 PM CDT Refill Request Mauricio Flores NEREIDA: 11.16.21Jun scheduled: Visit date not found LRF: 11.16.21 Qty Disp: 60 # of refills: 5 Allergies: Allergies Allergen Reactions ??? Hydrocodone-Acetaminophen Rash Vicodin ??? [place] Itching Pended Medication Order: Requested Prescriptions Pending [...] [facility] - Internal Med [address] [facility], [place] [address] Neil Velasquez MD [address] [facility] [place] [address] documented as of this encounter Visit Diagnoses Diagnosis Essential hypertension documented in this encounter Care Teams Blister Packing Machine Tender Relationship Specialty Start Date End Date Lala Tello MD PCP - General Internal Medicine 12/02/21 11/21/22 Rosalee Cano MD [address] [address] [address] [address] DIV OF [facility] INTERNAL [place] [address] Resident Internal Medicine 12/02/21 03/20/23 Rosalee Cano MD [address] DIV OF [facility] INTERNAL [place]IC[place] [address] Resident - PCP Internal Medicine 02/20/22 03/13/23 documented as of this encounter
--- OUTSIDE RECORDS SUMMARY | 2024-08-02 10:00 | XMS_ITS | Encounter Summary ---
Author Organization [facility] Health Address [address] [facility] [place] [address] Care Team Providers Care Basket Hand Braider Name Role Phone Rosalee Cano MD Primary Care Provider [phone] Reason for Visit * Reason Onset Date Comments Results 05/10/2021 Encounter Details Date Type Department Care Team (Late st Contact Info) Description 05/10/2021 Telephone [facility] INTERNAL MED [address] [place] [address] Angel Bedoya DO [address] [place] [address] Results Social History Tobacco Use Types Packs/Day Years [...] encounter Miscellaneous Notes * Telephone Encounter - Angel Bedoya DO - 05/10/2021 5:22 PM CDT Called patient with echocardiogram results. Discussed left ventricular hypertrophy, recommended patient to check ehr blood pressure each morning and make a log (she has a cuff at home), to reduce salt in her diet and use Mrs. Cruz no salt seasoning as a substitute, and continuing weight loss efforts. Patient without unexplained syncopal episodes and wall thickness below 30mm, so evaluation for ICD not required at this time. documented in this encounter Plan of Treatment Upcoming Encounters Date Type Department Care Team (Late st Contact Info) Description 12/15/2024 1:00 PM CDT Office Visit [facility] - Internal Med [address] [facility], [place] [phone] Neil Velasquez MD [address] [facility] [place] [address] documented as of this encounter Visit Diagnoses Not on filedocumented in this encounter Care Teams Basket Hand Braider Relationship Specialty Start Date End Date Rosalee Cano MD [address] [facility] 2L [place] [address] PCP - General 05/04/21 12/01/21 documented as of this encounter
--- OUTSIDE RECORDS SUMMARY | 2024-08-02 10:00 | XMS_ITS | Encounter Summary ---
Author Organization [facility] Health Address [address] [facility] [place] [address] Care Team Providers Care Clerk Travel Reservations Name Role Phone Rosalee Cano MD Unavailable Ronald Casarez MD Primary Care Provider Randi Gomes DO Unavailable [phone] Reason for Visit * Reason Comments Hypertension Follow-up Encounter Details Date Type Department Care Team (Latest Contact Info) Description 03/14/2023 1:30 PM CDT Office Visit [facility] - Internal Med [address] [facility], [place] [phone] Randi Gomes DO [address] [facility] 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); Class 3 severe obesity with serious comorbidity and body mass index (BMI) of 45.0 to 49.9 in adult, unspecified obesity type (HCC); Hyperlipidemia, unspecified hyperlipidemia type; Personal history of transient ischemic attack (TIA), and cerebral infarction without residual deficits; Family history of ischemic heart disease and other diseases of the circulatory system; Essential hypertension; Isolated proteinuria with morphologic lesion; Insomnia, unspecified type; Pericardial cyst (HCC); Preventative health care Social History Tobacco Use [...] Sign Reading Time Taken Comments Blood Pressure 161/81 03/14/2023 1:44 PM CDT Pulse 56 03/14/2023 1:14 PM CDT Temperature 36.1 ??C (97 ??F) 03/14/2023 1:14 PM CDT Respiratory Rate - - Oxygen Saturation 97% 03/14/2023 1:14 PM CDT Inhaled Oxygen Concentration - - Weight 118.8 kg (262 lb) 03/14/2023 1:14 PM CDT Height 167.6 cm (5' 6 ) 03/14/2023 1:14 PM CDT Body Mass Index 42.29 03/14/2023 1:14 PM CDT documented in this encounter Patient Instructions * Patient Instructions* Randi Gomes DO - 03/14/2023 2:03 PM CDT Thank you so much for your time spent with us at your appointment today. At your appointment today,the following items were addressed. We ordered the following tests: -CMP (kidney function) -Thyroid function -Cholesterol levels -A1c (blood sugar) We changed the doses of the following medications: -We increased your Lisinopril dose to 40 mg once a day -You can take 2 tablets of Lisinopril 20 mg once a day until you run out Referrals provided: -OBGYN for a pap smear Additional instructions: -Please check your blood pressure at home in the morning and message me your readings through [employer] We will plan to follow up with you in 1 week for a blood pressure check and 1 month to see how you are doing on the increased Lisinopril dose. Please call the clinic to let us know if you have any questions. Thanks again, Randi Gomes D.O. documented in this encounter Progress Notes * Randi Gomes, - 03/14/2023 1:30 PM CDT [facility] General Internal Medicine Established Patient Note CC: Chief Complaint Patient presents with ??? Hypertension Follow-up Assessment & Plan: Ms. Rickie Flores is a 57 year old female with a PMHx of uncontrolled HTN, TIA, HLD, and DM2 complicated by diabetic neuropathy who presents to [facility] clinic today for HTN follow-up. #HTN, uncontrolled #Hx proteinuria -Last seen by Dr. French 02/27/2023 for acute visit due to uncontrolled HTN -BP today: 169/83, repeat 161/81 -Continue Carvedilol 25 mg and Hydralazine 75 mg TID -Lisinopril increased to 40 mg today -Labs ordered today: CMP, TSH -Advised patient to check blood pressure at home and record in log on MyChart -Patient to follow up in 1 week for BP check -Discussed importance of low salt diet, encouraged continued weight loss -History of proteinuria, seen by nephrology who recommended weight loss, as well as better control of BP and DM #Hx TIA #HLD -Continue Aspirin 81 mg qd -Patient reports that she is not taking statin due to high cost -Patient declined starting a different statin today that might be cheaper -Discussed importance of taking a statin due to history of TIA and DM2, patient expressed understanding of the risks -Will discuss starting a statin at visit in 1 month -Lipid panel ordered today ?? #DM2 #Diabetic neuropathy -Last A1c: 6.4 (11/2022), repeat A1c ordered today -Continue diet control and weight loss -Last eye exam: UTD per patient -Last foot exam: 11/2022, intact sensation bilaterally -Lipid panel and microalbumin/Cr ordered today ?? #Pericardial cyst -Noted on outside imaging -Cardiology recommends yearly echo x2 years and then every 5 years if stable -Patient is due for echo, re-ordered today ?? #Insomnia -Patient reports poor sleep quality at night -She declined a sleep study today -Will address at next visit #Hx microcytosis, resolved -Hgb within normal limits, no anemia -Colonoscopy normal (11/2020), recommend repeat in 2025 -Will continue to monitor #Morbid obesity -Patient has lost 8 lbs since her last visit ~2 weeks ago -Encouraged patient to continue healthy diet and weight loss Preventative Care/Health Maintenance: Immunizations - COVID19: 3 doses, advised patient to get booster dose at pharmacy - Tdap: UTD - Pneumococcal: patient declined - Zoster: will discuss at next visit - Hepatitis B: will address at next visit Colorectal cancer screening: UTD, repeat in 2025 due to family history HIV: declined today Hep C: UTD Cardiovascular prevention: lipids ordered today, diabetes screening ordered today Depression screening: reviewed today Cervical cancer screening: referral provided today Breast ca screening: UTD Patient discussed with attending physician, Dr. Razo, who agrees with my assessment and plan. Return in about 1 week (around 03/21/2023) for nurse visit for blood pressure check in 1 week and 1 month follow up with Dr. Gomes. History of Present Illness: Mauricio Flores is a 57 year old female presenting to GI clinic for routine followup . #HTN, uncontrolled #Hx proteinuria -Last seen by Dr. French 02/27/2023 for acute visit due to uncontrolled HTN -BP today: 169/83, repeat 161/81 -Compliant with Carvedilol 25 mg, Hydralazine 75 mg TID and Lisinopril 20 mg -Did not keep BP log at home as advised by Dr. French -Does not endorse chest pain, shortness of breath, vision changes, or LE edema #Hx TIA #HLD -Patient is compliant Aspirin 81 mg qd -Patient reports that she is not taking statin due to cost and will not start new statin at this time ?? #DM2 #Diabetic neuropathy -Last A1c: 6.4 (11/2022) -Last eye exam: UTD per patient -Last foot exam: 11/2022 -Currently controlled by diet and weight management -Patient reports improvement in her diet with 8 lb weight loss noted since last visit ~2 weeks ago #Pericardial cyst -Noted on outside imaging -Patient did not complete echo yet, reports that she had difficulty with scheduling ?? #Insomnia -Patient reports poor sleep quality at night and often wakes up frequently during the night -She denies snoring, but endorses waking up fatigued #Hx microcytosis -Patient reports that she is no longer taking iron #Morbid obesity -Patient has lost 8 lbs since her last visit ~2 weeks ago -She has been working on eating healthier and exercising Past Medical/Surgical/Family/Social History: Reviewed and updated in [facility] History tab Medications: Reviewed and updated in [facility] Medications tab Current Outpatient Medications Medication Sig Dispense Refill ??? Ascorbic Acid (ALPHONSE-C PO) ??? aspirin (ASPIRIN) 81 MG tablet 100 tablet ??? bisacodyl EC (DULCOLAX) 5 MG tablet Take all 4 tablets at noon the day before your colonoscopy.4 tablet 0 ??? Capsaicin 0.025 % by Apply externally route 3 times daily ??? carvedilol (Coreg) 25 MG tablet Take 1 (one) tablet by mouth 2 times daily with morning and evening meal 60 tablet 0 ??? Glucose Blood (BLOOD GLUCOSE TEST STRIPS) [...] ??? lisinopril (Prinivil; Zestril) 40 MG tablet Take 1 (one) tablet by mouth once daily 30 tablet 0 ??? lisinopril (Prinivil; Zestril) 20 MG tablet Take 1 (one) tablet by mouth once daily 30 tablet 0 ??? VITAMIN D PO No current facility-administered medications for this visit. Allergies: Reviewed and updated in [facility] Allergies tab Review of Systems: Review of Systems Constitutional: Positive for weight loss. Negative for chills and fever. HENT: Negative for congestion and sore throat. Respiratory: Negative for cough and shortness of breath. Cardiovascular: Negative for chest pain, palpitations and leg swelling. Gastrointestinal: Negative for abdominal pain, diarrhea, heartburn and vomiting. Genitourinary: Negative for dysuria and frequency. Musculoskeletal: Negative for joint pain and myalgias. Neurological: Negative for dizziness and weakness. Psychiatric/Behavioral: Negative for depression. The patient has insomnia. The patient is not nervous/anxious. Physical Exam: BP 161/81 Pulse 56 Temp 97 ??F (36.1 ??C) Ht 1.676 m (5' 6 ) Wt 118.8 kg (262 lb) SpO2 97% Physical Exam Constitutional: Appearance: Normal appearance. HENT: Head: Normocephalic and atraumatic. Nose: Nose normal. Cardiovascular: Rate and Rhythm: Normal rate and regular rhythm. Pulmonary: Effort: Pulmonary effort is normal. No respiratory distress. Breath sounds: Normal breath sounds. Abdominal: General: There is no distension. Palpations: Abdomen is soft. Tenderness: There is no abdominal tenderness. Musculoskeletal: General: No swelling. Skin: General: Skin is warm and dry. Neurological: General: No focal deficit present. Mental Status: She is alert and oriented to person, place, and time. Psychiatric: Mood and Affect: Mood normal. Thought Content: Thought content normal. Labs: Personally reviewed. Imaging/Other diagnostic testing: Personally reviewed. Lab Preference: [facility] [address] [place] [address] Randi Gomes, 03/07/2023 Billing Guide Associated attestation - Paul Razo II, MD - 03/15/2023 2:57 PM CDT Attending Physician Attestation I have seen and discussed the patient and reviewed the resident's note at the time of the visit Adrian agree with history, physical exam, assessment, and plan. The plan was reviewed with the patient and the patient confirmed understanding of the plan and all follow-up steps. See note by Dr. Gomes for further details. Date of service: 03/14/2023 Paul Razo II, MD documented in this encounter Plan of Treatment Upcoming Encounters Date Type Department Care Team (Late st Contact Info) Description 12/15/2024 1:00 PM CDT Office Visit [facility] - Internal Med [address] [facility], [place] [phone] Neil Velasquez MD [address] [facility] [place] [address] documented as of this encounter Results * (ABNORMAL) HEMOGLOBIN A1C (03/14/2023 2:40 PM CDT) Hemoglobin A1c 6.1(H) <=5.6 % 03/15/2023 8:59 AM CDT [facility] Estimated Average Glucose 128 mg/dL 03/15/2023 8:59 AM CDT [facility] Comment: HbA1c Interpretation: Normal : < 5.7% Pre-diabetes: 5.7-6.4% Diabetes: Equal to or greater than 6.5% Test results diagnostic of diabetes should be repeated for confirmation. Treatment target values recommended by ADA and other clinical organizations should be used to evaluate metabolic control in patients. Reference: [place] Diabetes Association, Standards of Care in Diabetes -2020 In patients 70 years and older consider HbA1c target range of 7.0-7.5% (Reference: Eder Herbert et al. NANCYDA. 2012) The Sebia assay for the measurement of HbA1c is a National Glycohemoglobin Standardization Program (NGSP) certified method. Blood BLOOD SPECIMEN / Unknown Lab Venipuncture / Unknown 03/14/2023 2:40 PM CDT 03/14/2023 2:56 PM CDT Paul Razo II, MD LAB - CHEMISTRY ORDERABLES [address] [address], [facility] [phone] * (ABNORMAL) MICROALB/CREAT RATIO URINE RANDOM PANEL (03/14/2023 2:40 PM CDT) Pathologist [facility] Albumin Random Urine 137.8 Not Established ug/mL 03/14/2023 3:25 PM CDT [facility] Creatinine Urine >400.00 Not Established mg/dL 03/14/2023 3:25 PM CDT [facility] Urine Albumin/Creati nine Ratio <34(H) <30 mg/g 03/14/2023 3:25 PM CDT [facility] Urine URINE SPECIMEN OBTAINED BY CLEAN CATCH PROCEDURE / Unknown Collection / Unknown 03/14/2023 2:40 PM CDT 03/14/2023 2:53 PM CDT Paul Razo II, MD LAB - URINE CHEM ISTRY ORDERABLES Performing Organization Address [facility]/State/ZIP Co de Phone Number [facility] [address] [place], [place] [address], [facility] [phone] * (ABNORMAL) LIPID PROFILE (03/14/2023 2:40 PM CDT) Cholesterol Total 170 <200 mg/dL 03/14/2023 3:27 PM CDT [facility] HDL 47 >40 mg/dL 03/14/2023 3:27 PM CDT [facility] Comment: ATP III Classification of HDL Cholesterol: ? <40 mg/dL: ??Considered a major risk factor. ? >60 mg/dL: ??Considered a negative risk factor. ? LDL Calculated 103(H) <100 mg/dL 03/14/2023 3:27 PM T [facility] Comment: ATP III Classification of LDL Cholesterol: ?<100 mg/dL: ??Optimal ? 100 - 129 mg/dL: ??Near Optimal/Above Optimal ? 130 - 159 mg/dL: ??Borderline High ? 160 - 189 mg/dL: ??High ?>190 mg/dL: ??Very High ? Triglycerides 98 <150 mg/dL 03/14/2023 3:27 PM T [facility] Comment: ATP III Classification of Triglycerides: ?<150 mg/dL: ??Normal ? 150 - 199 mg/dL: ??Borderline High ? 200 - 400 mg/dL: ??High ?>500 mg/dL: ??Very High Blood BLOOD SPECIMEN / Unknown Lab Venipuncture / Unknown 03/14/2023 2:40 PM CDT 03/14/2023 2:56 PM CDT Paul Razo II, MD LAB - CHEMISTRY ORDERABLES [facility] [address] [place] [address], [facility] [phone] * (ABNORMAL) COMPREHENSIVE METABOLIC PANEL (03/14/2023 2:40 PM [facility]) BUN 17 7 - 26 mg/dL 03/14/2023 3:27 PM [facility] Creatinine 1.08(H) 0.56 - 0.96 mg/dL 03/14/2023 3:27 PM [facility] Sodium 139 136 - 145 mmol/L 03/14/2023 3:27 PM [facility] Potassium 3.8 3.5 - 4.5 mmol/L 03/14/2023 3:27 PM [facility] Chloride 105 98 - 107 mmol/L 03/14/2023 3:27 PM [facility] CO2 29 22 - 29 mmol/L 03/14/2023 3:27 PM [facility] Glucose 118(H) 70 - 115 mg/dL 03/14/2023 3:27 PM [facility] Calcium 9.2 8.4 - 10.2 mg/dL 03/14/2023 3:27 PM [facility] Protein Total 7.3 6.0 - 8.3 g/dL 03/14/2023 3:27 PM [facility] Albumin 3.6 3.4 - 5.0 g/dL 03/14/2023 3:27 PM [facility] Bilirubin Total 0.7 0.2 - 1.2 mg/dL 03/14/2023 3:27 PM [facility] Alkaline Phosphatase 79 40 - 150 U/L 03/14/2023 3:27 PM [facility] ALT 15 5 - 55 U/L 03/14/2023 3:27 PM [facility] AST 15 5 - 34 U/L 03/14/2023 3:27 PM [facility] Anion Gap 9 8 - 18 03/14/2023 3:27 PM [facility] BUN/Creatinine Ratio 16 7 - 23 03/14/2023 3:27 PM [facility] Osmolality Calculated 291 270 - 300 mOsm/kg 03/14/2023 3:27 PM CDT [facility] Albumin/Globulin Ratio 1.0(L) 1.1 - 2.3 03/14/2023 3:27 PM CDT [facility] eGFR by CKD-EPI 60(L) >=90 mL/min/1.7 3 m2 03/14/2023 3:27 PM CDT [facility] Blood BLOOD SPECIMEN / Unknown Lab Venipuncture / Unknown 03/14/2023 2:40 PM CDT 03/14/2023 2:56 PM CDT Paul Razo II, MD LAB - CHEMISTRY ORDERABLES [facility] [address] [place] [address], [facility] [phone] documented in this encounter Visit Diagnoses Diagnosis Encounter to establish care with new doctor- Primary Encounter for screening for cervical cancer 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) [...] diseases of the circulatory system Essential hypertension Isolated proteinuria with morphologic lesion Nephritis and nephropathy, not specified as acute or chronic, with unspecified pathological lesion in kidney Insomnia, unspecified type Pericardial cyst (HCC) Other specified congenital anomaly of heart Preventative health care Routine general medical examination at a health care facility documented in this encounter Care Teams Clerk Travel Reservations Relationship Specialty Start Date End Date Ronald Casarez MD [address] [place] [phone] PCP - General Internal Medicine 12/06/22 05/20/23 [place] [address] [place] [address] [address] [place] [address] Resident Internal Medicine 12/02/21 03/20/23 Randi Gomes DO [address] [place] [address] Resident - PCP Internal Medicine 03/14/23 07/02/24 documented as of this encounter
--- OUTSIDE RECORDS SUMMARY | 2024-08-02 10:00 | XMS_ITS | Encounter Summary ---
Author Organization [facility] Health Address [address] [facility] [place] [address] Care Team Providers Care Associate Software Application Engineer Name Role Phone Rosalee Cano MD Unavailable Ronald Casarez MD Primary Care Provider Randi Gomes DO Unavailable [phone] Encounter Details Date Type Department Care Team (Late st Contact Info) Description 03/14/2023 Orders Only [facility] - Internal Med [facility] [place] [phone] Randi Gomes DO [address] [place], [place] [id number] Pericardial cyst (HCC) Social History Tobacco Use [...] Description 12/15/2024 1:00 PM CDT Office Visit [facility] - Internal Med [address] [facility] [address] Neil Velasquez MD [address] [place] [address] documented as of this encounter Visit Diagnoses Diagnosis Pericardial cyst (HCC) Other specified congenital anomaly of heart documented in this encounter Care Teams Associate Software Application Engineer Relationship Specialty Start Date End [place]arez [place] [address] [place] [phone] PCP - General Internal Medicine 12/06/22 05/20/23 Rosalee Cano MD [address] DIV [place] [address] Resident Internal Medicine 12/02/21 03/20/23 Randi Gomes DO [address] [place] [address] Resident - PCP Internal Medicine 03/14/23 07/02/24 documented as of this encounter
--- OUTSIDE RECORDS SUMMARY | 2024-08-02 10:00 | XMS_ITS | Encounter Summary ---
Author Organization [facility] Health Address [address] [facility] [place] [address] Care Team Providers Care Astrophysics Teacher Name Role Phone Rosalee Cano MD Primary Care Provider [phone] [phone] Reason for Visit * Reason Onset Date Comments MEDICATION REFILL 08/18/2021 Encounter Details Date Type Department Care Team (Late st Contact Info) Description 08/18/2021 Refill [facility] [address] [place] [address], [place] [address] Rosalee Cano MD [address] [place] [address] OF [facility] [place] [address] MEDICATION REFILL Social History Tobacco Use Types [...] * Telephone Encounter - Laura Kern - 08/18/2021 11:52 AM CST Refill Request Mauricio Flores NEREIDA: 04/06/21 NOV due: 11/16/21 NOV scheduled: 11/16/2021 LRF: 07/16/21 Qty Disp: 90 # of refills: 0 Allergies: Allergies Allergen Reactions ??? Hydrocodone-Acetaminophen Rash Vicodin ??? [place] Itching Pended Medication Order: Requested Prescriptions Pending Prescriptions Disp Refills ??? hydrALAZINE (APRESOLINE) 50 MG tablet 90 tablet 0 Sig: Take 1 (one) tablet by mouth 3 times daily [facility] WET ROOM documented in this encounter Plan of Treatment Upcoming Encounters Date Type Department Care Team (Late st Contact Info) Description 12/15/2024 1:00 PM CDT Office Visit [facility] - Internal Med [address] [facility], [place] [id number] Neil Velasquez MD [address] [facility] [place] [address] documented as of this encounter Visit Diagnoses Diagnosis Essential hypertension documented in this encounter Care Teams Astrophysics Teacher Relationship Specialty Start Date End Date Rosalee Cano MD [address] [facility] 2L DIV OF [facility] [place] [address] PCP - General 05/04/21 12/01/21 documented as of this encounter
--- OUTSIDE RECORDS SUMMARY | 2024-08-02 10:00 | XMS_ITS | Encounter Summary ---
Author Organization [facility] Health Address [address] [facility] [place] [address] Care Team Providers Care Vp Director Of Creative Strategy Name Role Phone Lala Tello MD Primary Care Provider [phone] [phone] Rosalee Cano MD Unavailable Rosalee Cano MD Unavailable Reason for Visit * Reason Onset Date Comments MEDICATION REFILL 02/20/2022 Encounter Details Date Type Department Care Team (Late st Contact Info) Description 02/20/2022 Refill [facility] [address] [place] [address], [place] [address] Rosalee Cano MD [address] [place] [address] OF [facility] [place] [address] MEDICATION REFILL Social History Tobacco Use Types [...] Telephone Encounter - Shelbie Turner LPN - 02/20/2022 12:53 PM CDT Refill Request Mauricio Flores NEREIDA: 11.16.21Jun scheduled: Visit date not found LRF: 11.16.21 Qty Disp: 60 # of refills: 4 Allergies: Allergies Allergen Reactions ??? Hydrocodone-Acetaminophen Rash Vicodin ??? [place] Itching Pended Medication Order: Requested Prescriptions Pending [...] [facility] - Internal Med [address] [facility], [place] [address] Neil Velasquez MD [address] [facility] [place] [address] documented as of this encounter Visit Diagnoses Diagnosis Iron deficiency anemia, unspecified iron deficiency anemia type documented in this encounter Care Teams Vp Director Of Creative Strategy Relationship Specialty Start Date End Date Lala Tello MD PCP - General Internal Medicine 12/02/21 11/21/22 Rosalee Cano MD [address] DIV OF [facility] [place] [address] Resident Internal Medicine 12/02/21 03/20/23 Rosalee Cano MD [address] DIV OF [facility] [place] [address] Resident - PCP Internal Medicine 02/20/22 03/13/23 documented as of this encounter
--- OUTSIDE RECORDS SUMMARY | 2024-08-02 10:00 | XMS_ITS | Encounter Summary ---
Author Organization [facility] Health Address [address] [place] [address] Care Team Providers Care Logistics Clerk Name Role Phone Rosalee Cano MD Primary Care Provider [phone] [phone] Reason for Visit * Reason Onset Date Comments Refill Request 10/05/2021 Encounter Details Date Type Department Care Team (Late st Contact Info) Description 10/05/2021 Telephone [facility] [address] [place] [address], [place] [phone] Rosalee Cano MD [address] [place] [address] OF [facility] [place] [address] Refill Request Social History Tobacco Use Types [...] Telephone Encounter - Kathy Mina RN - 10/05/2021 11:51 AM CST Pharmacy and pt requests 90 day supply. Pt calling in and stating she got a text about her hydralazine and needs refills of both. Phoned [facility] pharmacy and spoke to pharmacist Krishna. She states that pt has refills on the hydralazine 25 mg tab script- 90 day prescription with refills. She states the hydralazine 50 mg TID script was sent in on 09/21/21 but was only a 30 day script. Requesting a 90 day amount. Script attached for your review. Refill Request Mauricio Flores NEREIDA: 04/06/21 NOV scheduled: 11/16/2021 LRF: 09/21/21 Qty Disp: 90 # of refills: 0 Allergies: Allergies Allergen Reactions ??? Hydrocodone-Acetaminophen Rash Vicodin ??? [place] Itching Pended Medication Order: Requested Prescriptions Pending Prescriptions Disp Refills ??? hydrALAZINE (APRESOLINE) 50 MG tablet 90 tablet 0 Sig: Take 1 (one) tablet by mouth 3 times daily NG SPREADER documented in this encounter Plan of Treatment Upcoming Encounters Date Type Department Care Team (Late st Contact Info) Description 12/15/2024 1:00 PM CDT Office Visit [facility]ician [facility] - Internal Med [address] [facility], [place] [address] Neil Velasquez MD [address] [facility] [place] [address] documented as of this encounter Visit Diagnoses Diagnosis Essential hypertension documented in this encounter Care Teams Logistics Clerk Relationship Specialty Start Date End Date Rosalee Cano MD [address] [facility] 2L DIV [place] [address] PCP - General 05/04/21 12/01/21 documented as of this encounter
--- OUTSIDE RECORDS SUMMARY | 2024-08-02 10:01 | XMS_ITS | Encounter Summary ---
Author Organization [facility] Health Address [address] [facility] [address] Care Team Providers Care Soil Sort Worker Name Role Phone Unavailable Primary Care Provider Unavailabl e Reason for Visit * Reason Onset Date Comments Results 05/14/2020 Encounter Details Date Type Department Care Team (Late st Contact Info) Description 05/14/2020 Telephone [facility] [address] [facility], [place] [phone] Catherine Salmeron, GIANNA [address] [place] [address] OF [facility] [place] [address] Results Social History Tobacco Use Types Packs/Day [...] encounter Miscellaneous Notes * Telephone Encounter - Catherine Salmeron APRN-CNP - 05/14/2020 12:46 PM CDT Called to review lab results. -Lipid profile WDL. Continue statin therapy. -A1C of 7.5%, continue BID glipizide. -CBC, iron profile WDL. Continue iron supplementation. -TSH WDL. -UA with elevated microalbumin/creatinine ratio. To keep upcoming nephrology appointment for continued surveillance and assistance in controlling HTN. Verbalized understanding. GIANNA Howe documented in this encounter Plan of Treatment Upcoming Encounters Date Type Department Care Team (Late st Contact Info) Description 12/15/2024 1:00 PM CDT Office Visit [facility]ician [facility] - Internal Med [address] [facility], [place] [phone] Neil Velasquez MD [address] [facility]?? [place] [address] documented as of this encounter Visit Diagnoses Not on filedocumented in this encounter
--- OUTSIDE RECORDS SUMMARY | 2024-08-02 10:01 | XMS_ITS | Encounter Summary ---
Author Organization [facility] Health Address [address] [facility] [address] Care Team Providers Care Director Of Public Works Name Role Phone Unavailable Primary Care Provider Unavailabl e Encounter Details Date Type Department Care Team (Late Contact Info) Description 06/05/2019 Orders Only [facility] Health Information Management [address] [address] Provider, MD Lydia Social History Tobacco Use Types Packs/Day Years [...] Center Physician [facility] - Internal Med [address] [facility], [place] [phone] Neil Velasquez MD [address] [facility]?? [place] [address] documented as of this encounter Procedures Procedure Name Priority Date/Time Associated Diagnosis Comments MAMMOGRAM Routine 06/03/2019 documented in this encounter Results * MAMMOGRAM (06/03/2019) Anatomical Region Laterality Modality Other Historical Provider MD SCANNING ONLY documented in this encounter Visit Diagnoses Not on filedocumented in this encounter
--- OUTSIDE RECORDS SUMMARY | 2024-08-02 10:01 | XMS_ITS | Encounter Summary ---
Author Organization [facility] Health Address [address] [facility] [place] [address] Care Team Providers Care Coal Tram Driver Name Role Phone Unavailable Primary Care Provider Unavailabl e Encounter Details Date Type Department Care Team (Latest Contact Info) Description 06/09/2020 Travel Social History Tobacco Use Types Packs/Day [...] have Coronavirus / COVID-19? No / Unsure 06/09/2020 9:27 AM CDT documented as of this encounter Plan of Treatment Upcoming Encounters Date Type Department Care Team (Late st Contact Info) Description 12/15/2024 1:00 PM CDT Office Visit [facility] - Internal Med [address] [facility], [place] [phone] Neil Velasquez MD [address] [facility] [place] [address] documented as of this encounter Visit Diagnoses Not on filedocumented in this encounter
--- OUTSIDE RECORDS SUMMARY | 2024-08-02 10:01 | XMS_ITS | Encounter Summary ---
Author Organization [facility] Health Address [address] [facility] [place] [address] Care Team Providers Care Scroll Machine Operator Name Role Phone Unavailable Primary Care Provider Unavailabl e Reason for Visit * Reason Onset Date Comments MEDICATION REFILL 11/21/2019 Encounter Details Date Type Department Care Team (Late st Contact Info) Description 11/21/2019 Refill [facility] [address] [address] Catherine Salmeron, OUTSIDE PRODUCTION INSPECTOR-[facility] [address] OF [facility] [place] [address] MEDICATION REFILL Social History Tobacco Use Types [...] * Telephone Encounter - Laura Kern - 11/21/2019 9:37 AM CDT Refill Request Mauricio Larios NEREIDA: 09/15/19 NOV due: 09/29/19 NOV scheduled: 01/19/20 LRF: 08/26/19 Qty Disp: 180 # of refills: 0 Allergies: Allergies Allergen Reactions ??? Hydrocodone-Acetaminophen Rash Vicodin ??? [place] Itching Pended Medication Order: Requested Prescriptions Pending Prescriptions Disp Refills ??? carvedilol (COREG) 25 MG tablet 180 tablet 0 Sig: Take 1 tablet by mouth 2 times daily with morning and evening meal documented in this encounter Plan of Treatment Upcoming Encounters Date Type Department Care Team (Late st Contact Info) Description 12/15/2024 1:00 PM CDT Office Visit [facility] - Internal Med [address] [facility], [place] [address] Neil Velasquez MD [address] [facility] [place] [address] documented as of this encounter Visit Diagnoses Diagnosis Essential hypertension documented in this encounter
--- OUTSIDE RECORDS SUMMARY | 2024-08-02 10:01 | XMS_ITS | Encounter Summary ---
Author Organization [facility] Health Address [address] [facility] [place] [address] Care Team Providers Care Retail Manager In Training Name Role Phone Unavailable Primary Care Provider Unavailabl e Reason for Referral * Radiology Services (Routine) - Closed Specialty Diagnoses / Procedures Referred By Contac t Referred To Contact Echosonography Diagnoses Nonspecific abnormal electrocardiogram (ECG) (EKG) Procedures ECHO STRESS TEST W EXERCISE Catherine Salmeron APRN-CNP [address] [facility] 2L DIV OF [facility] [place] [address] [facility] Echo [address] [place] [address] Referral ID Status Reason Start Date Expiration Date Visits Re quested Visits Authorized [id number] Closed 06/11/2020 06/11/2021 1 1 Encounter Details Date Type Department Care Team (Latest Contact Info) Description 05/12/2020 7:50 AM CDT Office Visit [facility] [address] [facility], [place] [phone] Catherine Salmeron APRN-CNP [address] [facility] 2[address] DIV OF [facility] [place] [address] Essential hypertension (Primary Dx); Nonspecific abnormal electrocardiogram (ECG) (EKG); 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); Retinopathy; Proteinuria, unspecified type; Hyperlipidemia, unspecified hyperlipidemia type; Morbidly obese (HCC); Enlarged thyroid; Pericardial cyst (HCC); TIA (transient ischemic attack); Microcytosis; Chronic right shoulder pain; Difficulty obtaining medication; Healthcare maintenance Social History Tobacco Use Types [...] Sign Reading Time Taken Comments Blood Pressure 180/105 05/12/2020 7:51 AM CDT Pulse 74 05/12/2020 7:51 AM CDT Temperature 36.2 ??C (97.2 ??F) 05/12/2020 7:51 AM CD T Respiratory Rate - - Oxygen Saturation 98% 05/12/2020 7:51 AM CDT Inhaled Oxygen Concentration - - Weight 130.3 kg (287 lb 3.2 oz) 05/12/2020 7:51 AM CDT Height - - Body Mass Index 46.36 05/05/2020 1:36 PM CDT documented in this encounter Patient Instructions * Patient Instructions* Catherine Salmeron, ENVELOPE STUFFER-GROCERY SACKER - 05/12/2020 8:04 AM CDT Our office is on the move! Beginning April 12, your [facility] doctor will see you in a new location. [facility] [address] [place] [id number] How to Contact Us Between Office Visits If you need to make an appointment with your doctor, please do so before you leave today. If you become ill and need to be seen before your next visit, you can call for a same day appointment through the Acute Care Service. Acute Care appointments with one of the physicains in the practice are generally made thesame day that you need to be seen. Please call us at [phone], option 1 thenoption 1 in the morning you would like to be seen. For scheduling routine appointments, requesting refills or leaving a message for your doctor, the office phone is [phone]. You will be given options to get to the assistance you need. Phone lines are open from 8:00 am to4:30 pm Sunday through Sunday. All prescription refills must be requested during regular office phone hours. Our fax number is [phone]. After hours urgent calls that cannot wait untill phone lines are open on the next day are given to the General Internal Medicine physician distance education faculty liaison. Please call [phone]. Identify yourself as a patient in our practice and give the smelter operator your doctor's name. The smelter operator will contact the physician distance education faculty liaison. You can generally expect a return call within 30 minutes. On weekends, physicians are seeing hospitalized patients and there maybe a longer wait. Visit our website at [email or web address] for information about our practice and an interactive health encyclopedia. Our clinic's missed appointment policy is: - Patients with 3 consecutively missed appointments OR 3 missed appointments in a 12 month period will no longer be seen by General Internal Medicine. They will be asked to seek Primary Care outside of [facility]. - A missed appointment is defined as: * An appointment cancelled less than 24 hours in advance *Arriving to a scheduled appointment too late to be seen (Patients who arrive to clinic later than their scheduled appointment time may not be seen) * Not showing up for an appointment documented in this encounter Progress Notes * Catherine Salmeron APRN-CNP - 05/12/2020 7:50 AM CDT Internal Medicine Primary Care Progress Note CC: Follow up. HPI/Interval History: Mauricio Larios is a 55 year old female presenting for follow up. Patient last seen in [facility] on 05/05/2020 for ACS visit, prior to that, last seen 09/15/2019. HTN. -Poorly controlled. Poor compliance with medication historically. -Recent ACS visit and ER visit with HTN and EKG with ST depression-unremarkable ER work up. In ER noted issues obtaining meds. -No recent follow up with nephrology. -To be taking lisinopril 40mg daily, carvedilol 25mg BID, hydralazine 50mg BID. -Home BPs: Reports still elevated, 170s/80s. -Denies chest pain, palpitations, SOB, vision changes. Having some headaches. DM2. -A1C=7.8%, 08/2019. -Medication: To be on glipizide, reports inconsistent compliance. -Statin: Atorvastatin prescribed, but has not been taking regularly. -Eye exam: 05/2019-concern for retinopathy. -Foot exam: 11/2018. -Microalbumin/creatinine ratio: Elevated 08/2019-has not seen nephrology lately. HLD/Obesity. -Diet/Exercise: Denies purposeful diet or exercise. Enlarged thyroid. -US 09/2019: Normal thyroid sonogram without suspicious thyroid nodules based on TI-RADS criteria. -TSH WDL 08/2019. ?Pericardial cyst. -Noted on outside imaging, but not on ECHO 06/2019. -Discussed with cardiology previously who recommended yearly ECHOs x 2 and then every 5 years if stable.??Usually benign if not enlarging??per Dr. Saldana. -Denies chest pain. TIA. -History of. -To be taking daily ASA, statin. Reports inconsistent compliance with statin therapy. Microcytosis. -On daily iron supplement. -Denies blood in stool or urine. Right shoulder pain. -Ongoing for years . -Previously on NSAIDs. -No numbness, tingling. No weakness. Past Medical History 05/12/2020: Reviewed and Updated; see Epic History tab for details Past Surgical History 05/12/2020: Reviewed and Updated; see Epic History tab for details Social History 05/12/2020: Reviewed and Updated; see Epic History tab for details Family History 05/12/2020: Reviewed and Updated; see Epic History tab for details Current Medications: Reviewed and up to date in Epic Medication tab Current Outpatient Medications Medication Sig ??? aspirin (ASPIRIN) 81 MG tablet ??? atorvastatin (LIPITOR) 40 MG tablet Take 1 tablet by mouth at bedtime ??? Blood Glucose Monitoring Suppl (ACCU-CHEK GUIDE) w/Device KIT ??? carvedilol (COREG) 25 MG tablet Take 1 tablet by mouth 2 times daily with morning and evening meal for 30 days ??? ferrous sulfate 325 (65 FE) MG tablet Take 1 tablet by mouth 2 times daily with morning and evening meal ??? glipiZIDE (GLUCOTROL) 5 MG tablet Take 1 tablet by mouth 2 times daily, before breakfast and supper ??? Glucose Blood (BLOOD GLUCOSE TEST STRIPS) STRP Use 1 strip TID. ??? hydrALAZINE (APRESOLINE) 50 MG tablet Take 1 tablet by mouth 3 times daily ??? LANCETS SUPER THIN 28G MISC Use TID. ??? lisinopril (PRINIVIL; ZESTRIL) 40 MG tablet Take 1 tablet by mouth once daily for 30 days No current facility-administered medications for this visit. Allergies: Allergies Allergen Reactions ??? Hydrocodone-Acetaminophen Rash Vicodin ??? [place] Itching Review of Systems: Gen: Denies fevers, chills Eyes: Denies change in vision Ears, Nose, Mouth, Throat: Denies change in hearing; denies dysphagia CV: Denies chest pain, palpitations Resp: Denies SOB, cough GI: Denies abd pain, n/v/d, constipation, melana, BRBPR : Denies dysuria, hematuria MS: Reporting right shoulder pain. Neuro: Denies focal weakness, numbness/tingling, LOC. Reporting intermittent head pain Physical Exam: BP 180/105 Pulse 74 Temp 97.2 ??F (36.2 ??C) Wt 287 lb 3.2 oz (130.3 kg) SpO2 98% BMI 46.36 kg/m2 Gen: NAD, conversational, pleasant, cooperative Eyes: EOMI; anicteric, non-injected sclerae Ears: TMs intact and pearly mcgee without exudates bilaterally Nose: Turbinates pink and moist Mouth: Moist oral mucous membrane; no lesions or sores appreciated; no tonsillar exudates Lymph: No supraclavicular, submadibular, cervical LAD Neck: Thick neck CV: Normal S1, S2; RRR; no MRGs appreciated; 2+ radial, DP pulses bilaterally; no LE edema Pulm: CTAB; no wheezes or crackles GI: Abd soft, NT to palpation; obese, no guarding or rebound MS: Tenderness present to left shoulder upon palpation. Full ROM to left shoulder Neuro: No focal neurologic deficits Psych: AOx3; calm, congruent affect Diabetic foot exam: Right and left feet examined with shoes and socks removed. Visual inspection was normal. Sensory exam was normal via monofilament exam. Dorsal pedal pulses were normal. Preventative Care/Health Maintenance: - Cervical cancer screening (Pap q3yr 21-29, Pap+HPV q5yr >/= 30 and <65): Followed by outside GRAPHIC EDITOR.?? - CRC screening (50-75): 2015. Due 2020. - Breast ca screening (50-74; mammogram q1-2yrs >50; if 40-50 d/w patient): 05/2019 with outsideGYN, planning to obtain with GRAPHIC EDITOR. - Breast cancer prevention (tamoxifen if 35-60 and Yulissa 5-yr risk >1.66%): NA - Tobacco use: Never smoker. - Lung ca screening (55-80 if 30-pack-yr current smoker or quit in last 15 yrs): Never smoker. - Osteoporosis screening (65+): Due at age 65. - Lipid screening (>45 unless additional risk factors): 08/2019. Due. - Statin (mod/high intensity if clinical ASCVD, LDL>190, age 40-75 +DM &??LDL 70-189, or 10yr risk >7.5%):??Currently prescribed statin therapy.?? - Diabetes screening (BP>135/80, HLD, obesity):??08/2019=7.8%. Due. - HIV (once, or annually if high risk): Declined at visit 11/19/18. - HepC (once if patient born between 6077-5106): 08/2014. - ASA ppx (>3% 5yr risk): Currently on daily ASA. - Depression screening: PHQ9?? 09/15/2019=0. -Obesity/physical activity/diet counseling:??Body mass index is 46.36 kg/m??. - Immunizations ?- Influenza: Due.??Declined at visit??05/12/2020. ?- HPV (<26): NA ?- Prevnar (>65 if PPSV23 naive, or at least 1 year after PPSV23): Due at age 65. ?- Pneumovax (>65 unless risk factors, 6-12mos after Prevnar): Reports she has had in the past. Declined re- vaccination at visit 11/19/18. ?- Tdap/Td (m91nnpto): 11/19/18. ?- Zoster (>60): Due at age 60. ?? Labs: Personally reviewed. Assessment and Plan: 1. Essential hypertension -Poorly controlled with poor compliance. Has not tolerated multiple medications previously. -Continue lisinopril 40mg daily, carvedilol 25mg BID. Increase hydralazine to 50mg TID. - AMB Ref Nephrology - [facility] NEPH 302; Future -RTC in 2 weeks for BP check. -Encouraged to follow up with nephrology. 2. Nonspecific abnormal electrocardiogram (ECG) (EKG) -ST changes. -Unremarkable ER work up. Will obtain outpatient stress testing. - ECHO STRESS TEST W EXERCISE; Future -Continue daily ASA, statin therapy. 3. Type 2 diabetes mellitus with complications -A1C=7.8%, 08/2019. -Medication: Encouraged to take glipizide 5mg BID with good compliance. Did not previously toleratemetformin. -Statin: Atorvastatin prescribed, but has not been taking regularly. Encouraged compliance. -Eye exam: 05/2019-concern for retinopathy. Encouraged ophthalmology follow up. -Foot exam: 05/12/2020. -Microalbumin/creatinine ratio: Elevated 08/2019-has not seen nephrology lately. Encouraged to schedule with nephrology. - HEMOGLOBIN A1C - MICROALB/CREAT RATIO URINE RANDOM PANEL - LIPID PROFILE 4. Retinopathy -Needs better DM2 control, as above. -Encouraged to schedule with ophthalmology for updated eye exam. 5. Proteinuria, unspecified type -No recent nephrology visits. -Needs better DM2, HTN control. - MICROALB/CREAT RATIO URINE RANDOM PANEL - AMB Ref Nephrology - [facility] NE[facility] 302; Future 6. Hyperlipidemia, unspecified hyperlipidemia type 7. Morbidly obese -Body mass index is 46.36 kg/m??. - LIPID PROFILE - atorvastatin (LIPITOR) 40 MG tablet; Take 1 tablet by mouth at bedtime Dispense: 90 tablet; Refill: 0 -Encouraged to follow a heart healthy diet and exercise. 8. Enlarged thyroid -Unremarkable US. - TSH 9. Pericardial cyst -Noted on outside imaging, but not on ECHO 06/2019. -Discussed with cardiology previously who recommended yearly ECHOs x 2 and then every 5 years if stable.??Usually benign if not enlarging??per Dr. Saldana. -ECHO stress ordered. 10. TIA (transient ischemic attack) -Continue ASA and statin. Encouraged compliance with statin therapy. 11. Microcytosis - CBC W/O DIFFERENTIAL - IRON + TIBC + FERRITIN - ENDOSCOPY, COLON, SCREENING; Future -Continue iron supplement. 12. Chronic right shoulder pain -Likely OA vs tendonitis. -Avoid NSAIDs given uncontrolled HTN. -Trial ice/heat. -Declined PT. Will refer to ortho for possible injections. - AMB Ref Orthopedics - [facility] ORTHO MATT; Future 13. Difficulty obtaining medication -Per chart review. Also caring for on disability. Will refer to for assistance/resources. - AMB Ref Social Work - [facility]; Future 14. Healthcare maintenance -As above. - ENDOSCOPY, COLON, SCREENING; Future Patient to RTC in 2 weeks for BP check, 3 months for routine visit. Call with any questions or concerns in the interim. GIANNA Howe documented in this encounter Plan of Treatment Upcoming Encounters Date Type Department Care Team (Late st Contact Info) Description 12/15/2024 1:00 PM CDT Office Visit [facility] - Internal Med [address] [facility], [place] [phone] Neil Velasquez MD [address] [facility] [place] [address] documented as of this encounter Procedures Procedure Name Priority Date/Time Associated Diagnosis Comments IRON + TIBC + FERRITIN Routine 05/13/2020 12:32 PM CDT Microcytosis MICROALB/CREAT RATIO URINE RANDOM PANEL Routine 05/13/2020 12:32 PM CDT 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) Proteinuria, unspecified type HEMOGLOBIN A1C Routine 05/13/2020 12:32 PM CDT 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) CBC W/O DIFFERENTIAL Routine 05/13/2020 12:32 PM CDT Microcytosis TSH Routine 05/13/2020 12:32 PM CDT Enlarged thyroid LIPID PROFILE Routine 05/13/2020 12:32 PM CDT 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) Hyperlipidemia, unspecified hyperlipidemia type documented in this encounter Results * ECHO STRESS TEST W EXERCISE (06/09/2020 12:53 PM CDT) Anatomical Region Laterality Modality Chest Echo 06/09/2020 10:2 2 AM CDT Narrative Procedure Note Ebony Tucker MD - 06/09/2020 Catherine Salmeron ENVELOPE STUFFER-GROCERY SACKER ECHOCARDIOGRAPHY RADIANT * IRON + TIBC + FERRITIN (05/13/2020 12:32 PM CDT) Iron 107 45 - 160 mcg/dL [facility] TIBC 295 250 - 450 mcg/dL (calc) [facility] % Saturation 36 16 - 45 % (calc) [facility] Ferritin 82 16 - 232 ng/mL [facility] Comment: Test Performed at: [facility] [place] [address] [place], [place] ??[phone] KATHY PEREZ DO,MPH Blood BLOOD SPECIMEN / Unknown 05/13/2020 12:32 PM CDT 05/13/2020 12:32 PM CDT Catherine Salmeron ENVELOPE STUFFER-GROCERY SACKER LAB - CHEMISTRY ORDERABLES Performing Organization Address [facility] de Phone Number [facility] [address] [place] [phone] * CBC W/O DIFFERENTIAL (05/13/2020 12:32 PM CDT) White Blood Cell Count 6.5 3.8 - 10.8 Thousand/u L [facility] RBC 4.81 3.80 - 5.10 Million/uL [facility] Hemoglobin 13.0 11.7 - 15.5 g/dL [facility] Hematocrit 40.1 35.0 - 45.0 % [facility] MCV 83.4 80.0 - 100.0 fL [facility] MCH 27.0 27.0 - 33.0 pg [facility] MCHC 32.4 32.0 - 36.0 g/dL [facility] RDW 13.1 11.0 - 15.0 % [facility] Platelet Count 313 140 - 400 Thousand/u L [facility] MPV 11.9 7.5 - 12.5 fL [facility] Comment: Test Performed at: [facility] [place] [address] [place], [place] ??[phone] KATHY PEREZ DO,MPH Blood BLOOD SPECIMEN / Unknown 05/13/2020 12:32 PM CDT 05/13/2020 12:32 PM CDT Catherine Salmeron ENVELOPE STUFFER-GROCERY SACKER LAB - HEMATOLOGY ORDERABLES Performing Organization Address [facility] de Phone Number [facility] [address] [place] [address] * TSH (05/13/2020 12:32 PM CDT) Pathologist [facility] TSH 1.20 mIU/L [facility] Comment: ?Reference Range ?> or = 20 Years ??0.40-4.50 ? Ranges ?First trimester ?0.26-2.66 ?Second trimester ?? 0.55-2.73 ?Third trimester ?0.43-2.91 Test Performed at: [employer] [place], [place] ??[phone] KATHY PEREZ DO,MPH Blood BLOOD SPECIMEN / Unknown 05/13/2020 12:32 PM CDT 05/13/2020 12:32 PM CDT Catherine Salmeron ENVELOPE STUFFER-GROCERY SACKER LAB - CHEMISTRY ORDERABLES [facility] [address] [place] [address] * LIPID PROFILE (05/13/2020 12:32 PM CDT) Cholesterol 143 <200 mg/dL [facility] HDL Cholesterol 55 > OR = 50 mg/dL [facility] Triglycerides 97 <150 mg/dL [facility] LDL Calculated 70 mg/dL (calc) [facility] Comment: Reference range: <100 Desirable range <100 mg/dL for primary prevention; ?? <70 mg/dL for patients with CHD or diabetic patients with > or = 2 CHD risk factors. LDL-C is now calculated using the Tung-Laura calculation, which is a validated novel method providing better accuracy than the Friedewald equation in the estimation of LDL-C. Tung BERGMAN et al. SEBASTIAN. 2013;310(19): 0245-7640 (http://education.[employer])/faq/FGE208) CHOL/HDLC RATIO 2.6 <5.0 (calc) [facility] Non HDL Cholesterol 88 <130 mg/dL (calc) [facility] Comment: For patients with diabetes plus 1 major ASCVD risk factor, treating to a non-HDL-C goal of <100 mg/dL (LDL-C of <70 mg/dL) is considered a therapeutic option. Test Performed at: [place], [place] ??[phone] KATHY PEREZ DO,MPH Blood BLOOD SPECIMEN / Unknown 05/13/2020 12:32 PM CDT 05/13/2020 12:32 PM CDT Catherine Victoria Faviola HUDSON-GROCERY SACKER LAB - CHEMISTRY ORDERABLES Performing Organization Address [facility] de Phone Number [facility] [address] [place] [address] * (ABNORMAL) MICROALB/CREAT RATIO URINE RANDOM PANEL (05/13/2020 12:32 PM CDT) Creatinine Urine 40 20 - 275 mg/dL [facility] Microalbumin Urine 7.2 mg/dL [facility] Comment: Reference Range Not established Microalbumin/Creat inine Ratio 180(H) <30 mcg/mg creat [facility] Comment: The ADA defines abnormalities in albumin excretion as follows: Category ? Result (mcg/mg creatinine) Normal ?<30 Microalbuminuria ? 30-299 Clinical albuminuria ?? > OR = 300 The ADA recommends that at least two of three specimens collected within a 3-6 month period be abnormal before considering a patient to be within a diagnostic category. Test Performed at: [facility] ??[phone] KATHY PEREZ DO,MPH Urine URINE SPECIMEN OBTAINED BY CLEAN CATCH PROCEDURE / Unknown 05/13/2020 12:32 PM CDT 05/13/2020 12:32 PM CDT Catherine Salmeron [facility] LAB - URINE CHEM ISTRY ORDERABLES Performing Organization Address [facility] de Phone Number [facility] [address] [place] [address] * (ABNORMAL) HEMOGLOBIN A1C (05/13/2020 12:32 PM CDT) Hemoglobin A1c 7.5(H) <5.7 % of total Hgb [facility] Comment: For someone without known diabetes, a hemoglobin A1c value of 6.5% or greater indicates that they may have diabetes and this should be confirmed with a follow-up test. For someone with known diabetes, a value <7% indicates that their diabetes is well controlled and a value greater than or equal to 7% indicates suboptimal control. A1c targets should be individualized based on duration of diabetes, age, comorbid conditions, and other considerations. Currently, no consensus exists regarding use of hemoglobin A1c for diagnosis of diabetes for children. ?? REPORT COMMENT: FASTING:YES Test Performed at: [facility] [address] [place], [place] ??[phone] KATHY PEREZ DO,MPH Blood BLOOD SPECIMEN / Unknown 05/13/2020 12:32 PM CDT 05/13/2020 12:32 PM CDT Catherine Salmeron ENVELOPE STUFFER-GROCERY SACKER LAB - CHEMISTRY ORDERABLES [employer] [address] [place] [address] documented in this encounter Visit Diagnoses Diagnosis Essential hypertension- Primary Nonspecific abnormal electrocardiogram (ECG) (EKG) 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) Type II or unspecified type diabetes mellitus with unspecified complication, not stated as uncontrolled Retinopathy Background retinopathy, unspecified Proteinuria, unspecified type Hyperlipidemia, unspecified hyperlipidemia type Morbidly obese (HCC) Morbid obesity Enlarged thyroid Goiter, unspecified Pericardial cyst (HCC) Other specified congenital anomaly of heart TIA (transient ischemic attack) Unspecified transient cerebral ischemia Microcytosis Other abnormality of red blood cells Chronic right shoulder pain Pain in joint, shoulder region Difficulty obtaining medication Healthcare maintenance Routine general medical examination at a health care facility Nonspecific abnormal electrocardiogram (ECG) (EKG) documented in this encounter
--- OUTSIDE RECORDS SUMMARY | 2024-08-02 10:01 | XMS_ITS | Encounter Summary ---
Author Organization [facility] Health Address [address] [place] [address] Care Team Providers Care Room Designer Name Role Phone Unavailable Primary Care Provider Unavailabl e Reason for Visit * Reason Comments Follow-up Encounter Details Date Type Department Care Team (Late Contact Info) Description 07/07/2019 Telephone [facility] - [address] [place] [phone] Ayesha Lopez, RN Follow-up Social History Tobacco Use Types [...] as of this encounter Progress Notes * Ayesha Lopez, RN - 07/07/2019 3:06 PM CST Spoke with patient to confirm appointment. Stated, have to cancel appointment, can't afford it, will reschedule. Informed patient, the importance of making a follow up appointment and to have labs done to be current with kidney prognosis. Verbalized understanding of instructions given. [facility] documented in this encounter Plan of Treatment Upcoming Encounters Date Type Department Care Team (Late Contact Info) Description 12/15/2024 1:00 PM CDT Office Visit [facility] - Internal Med [address] [facility], [place] [address] Neil Velasquez MD [address] [facility] [place] [address] documented as of this encounter Visit Diagnoses Not on filedocumented in this encounter
--- OUTSIDE RECORDS SUMMARY | 2024-08-02 10:01 | XMS_ITS | Encounter Summary ---
Author Organization [facility] Health Address [address] [place] [address] Care Team Providers Care Tax Accounting Assistant Name Role Phone Unavailable Primary Care Provider Unavailabl e Reason for Visit * Reason Onset Date Comments Medication Issue 08/17/2020 Encounter Details Date Type Department Care Team (Late st Contact Info) Description 08/17/2020 Telephone [facility] General Internal Medicine [address] [facility] [place] [address] Catherine Salmeron, PROMOTION MANAGER-[facility] OF [facility] [place] [address] Medication Issue Social History Tobacco Use Types [...] Miscellaneous Notes * Telephone Encounter - Lucia Perry, RN - 08/17/2020 11:52 AM LAND SURVEYING PARTY CHIEF Catherine Salmeron, PROMOTION MANAGER-PHLEBOTOMIST ASSOCIATE 11 minutes ago (11:41 AM) She needs to be taking hydralazine 75mg TID, so needs both the 50mg and 25mg tablets. Can take one of each TID to make the 75mg. ?? Thanks, GIANNA Howe ?? Spoke with pharmacy staff and relayed provider's message. SURVEYING PARTY CHIEF * Telephone Encounter - Catherine Salmeron APRN-CNP - 08/17/2020 11:40 AM LAND SURVEYING PARTY CHIEF She needs to be taking hydralazine 75mg TID, so needs both the 50mg and 25mg tablets. Can take one of each TID to make the 75mg. Thanks, GIANNA Howe SURVEYING PARTY CHIEF * Telephone Encounter - Lucia Perry RN - 08/17/2020 11:22 AM LAND SURVEYING PARTY CHIEF Incoming fax coming requesting script clarification. Hydralazine 25mg and 50mg were both ordered on08/11/20. Which dose are you wanting the patient to be on? SURVEYING PARTY CHIEF documented in this encounter Plan of Treatment Upcoming Encounters Date Type Department Care Team (Late st Contact Info) Description 12/15/2024 1:00 PM CDT Office Visit [facility] - Internal Med [address] [facility] [place] [address] Neil Velasquez MD [address] [facility] [place] [address] documented as of this encounter Visit Diagnoses Not on filedocumented in this encounter
--- OUTSIDE RECORDS SUMMARY | 2024-08-02 10:01 | XMS_ITS | Encounter Summary ---
Author Organization [facility] Health Address [address] [facility] [place] [address] Care Team Providers Care Single Stroke Preformer Name Role Phone Unavailable Primary Care Provider Unavailabl e Reason for Referral * Radiology Services (Routine) - Closed Specialty Diagnoses / Procedures Referred By Contac t Referred To Contact Ultrasound Diagnoses Proteinuria, unspecified type Essential hypertension Procedures US RETROPERITONEAL COMPLETE Roberto Manrique MD [address] [address] [address] Referral ID Status Reason Start Date Expiration Date Visits Re quested Visits Authorized [id number] Closed 12/30/2018 06/28/2019 1 1 ICER FINISHER Reason for Visit * Radiology Services (Routine) - Closed Specialty Diagnoses / Procedures Referred By Contac t Referred To Contact Ultrasound Diagnoses Proteinuria, unspecified type Essential hypertension Procedures US RETROPERITONEAL COMPLETE Roberto Manrique MD [address] [address] [facility] [address] [place] [address] Referral ID Status Reason Start Date Expiration Date Visits Re quested Visits Authorized [id number] Closed 12/30/2018 06/28/2019 1 1 Encounter Details Date Type Department Care Team (Late st Contact Info) Description 06/20/2019 10:42 AM DE ICER FINISHER - 06/20/2019 11:59 PM DE ICER FINISHER Hospital Encounter [facility] [address] [place] [address] Roberto Manrique MD 70 [facility] [address] [place] [id number] Discharge Disposition: Home or Self Care Social [...] Sig Dispensed Refills Start Date End Date aspirin (ASPIRIN) 81 MG tablet 100 tablet 04/06/2016 Glucose Blood (BLOOD GLUCOSE TEST STRIPS) STRP Use 1 strip TID. 100 strip 11 07/03/2017 LANCETS SUPER THIN 28G MISC Use TID. 100 11 03/13/2017 amLODIPine (NORVASC) 10 MG tablet Take 1 tablet by mouth once daily 30 tablet 3 12/30/2018 06/23/2019 atorvastatin (LIPITOR) 40 MG tabletIndications:Type 2 diabetes mellitus with complication, without long-term current use of insulin (HCC),Hyperlipidemia, unspecified hyperlipidemia type Take 1 tablet by mouth at bedtime 90 tablet 1 02/25/2019 08/21/2019 Blood Glucose Monitoring Suppl (ACCU-CHEK GUIDE) w/Device KIT 12/17/2018 03/14/2023 carvedilol (COREG) 12.5 MG tabletIndications:Essenti al hypertension Take 1 tablet by mouth 2 times daily with morning and evening meal 180 tablet 05/28/2019 06/23/2019 chlorthalidone (HYGROTON) 25 MG tablet Take 25 mg by mouth 2 times daily 06/23/2019 ferrous sulfate 325 (65 FE) MG tabletIndications:Iron deficiency anemia, unspecified iron deficiency anemia type Take 1 tablet by mouth 2 times daily with morning and evening meal 60 tablet 4 03/03/2019 07/29/2019 Glucose Blood (BLOOD GLUCOSE TEST STRIPS) STRP Use 1 strip TID. 100 strip 11 03/13/2017 09/15/2019 lisinopril (PRINIVIL; ZESTRIL) 40 MG tabletIndications:Essenti al hypertension Take 1 tablet by mouth once daily 90 tablet 05/28/2019 07/14/2019 losartan (COZAAR) 100 MG tablet Take 100 mg by mouth once daily 06/23/2019 metFORMIN ER 24hr (GLUCOPHAGE XR) 500 MG tabletIndications:Type 2 diabetes mellitus with complication, without long-term current use of insulin (HCC) Take 2 tablets by mouth daily with dinner 90 tablet 1 11/19/2018 06/23/2019 documented as of this encounter Plan of Treatment Upcoming Encounters Date Type Department Care Team (Late st Contact Info) Description 12/15/2024 1:00 PM CDT Office Visit [facility] - Internal Med [address] [facility] [place] [address] Neil Velasquez MD [address] [facility] [place] [address] documented as of this encounter Procedures Procedure Name Priority Date/Time Associated Diagnosis Comments US RETROPERITONEAL COMPLETE Routine 06/20/2019 11:26 AM DE ICER FINISHER Proteinuria, unspecified type Essential hypertension documented in this encounter Results * US RETROPERITONEAL COMPLETE (06/20/2019 11:26 AM DE ICER FINISHER) Anatomical Region Laterality Modality Abdomen Ultrasound 06/20/2019 11:3 6 AM DE ICER FINISHER Impressions 06/20/2019 2:07 PM DE ICER FINISHER IMPRESSION: Normal renal size. No evidence of nephrolithiasis, hydronephrosis, or solid renal mass. Pelvic soft tissue density, partially imaged. Could not be evaluated due to nondistended bladder but may represent a uterine fibroid. Recommend clinical correlation. Further imaging may be obtained if clinically indicated. Dictated by Wli Sanchez MD (radiology supervisor). I, Dr. Levi GONSALES M.D. have personally reviewed and interpreted this examination/study. This report was electronically signed by Levi GONSALES M.D. ??on 06/20/2019 2:07 PM . Narrative 06/20/2019 2:07 PM DE ICER FINISHER EXAMINATION: Complete retroperitoneal sonogram HISTORY: ckd, proteinuria [...] cannot be fully evaluated. Procedure Note Nikky Gonsales MD - 06/20/2019 EXAMINATION: Complete retroperitoneal sonogram [...] clinically indicated. Dictated by Wil Sanchez MD (radiology supervisor). Dr. Levi Mike M.D. have personally reviewed and interpretedthis examination/study. This report was electronically signed by Levi GONSALES M.D. on 06/20/2019 2:07 PM . Roberto Manrique MD US ORDERABLES documented in this encounter Visit Diagnoses Diagnosis Proteinuria, unspecified type Essential hypertension documented in this encounter
--- OUTSIDE RECORDS SUMMARY | 2024-08-02 10:01 | XMS_ITS | Encounter Summary ---
Author Organization [facility] Health Address [address] [facility] [address] Care Team Providers Care Nursing Support Worker Name Role Phone Unavailable Primary Care Provider Unavailabl e Encounter Details Date Type Department Care Team (Late Contact Info) Description 06/07/2020 Orders Only [facility] - Nephrology [address] [place] [address] [place] [address] Lauryn Fu MD [address] [facility] [address] [place] [address] Essential hypertension Social History Tobacco Use Types [...] Visit [facility] [address] [place] [address] [place] [address] Neil Velasquez MD [address] [facility] [place] [address] documented as of this encounter Visit Diagnoses Diagnosis Essential hypertension- Primary documented in this encounter
--- OUTSIDE RECORDS SUMMARY | 2024-08-02 10:01 | XMS_ITS | Encounter Summary ---
Author Organization [facility] Health Address [address] [facility] [place] [address] Care Team Providers Care Test Engine Mechanic Name Role Phone Unavailable Primary Care Provider Unavailabl e Reason for Visit * Reason Onset Date Comments Letter 11/28/2019 Encounter Details Date Type Department Care Team (Late st Contact Info) Description 11/28/2019 Telephone [facility] [address] [facility] [address] [place] [address] Catherine Salmeron, DICE MAKER-MASON TENDER RESTORATION LABOR [address] OF [facility] [place] [address] Letter Social History Tobacco Use Types Packs/Day Years [...] encounter Miscellaneous Notes * Telephone Encounter - Kecia Vasquez RN - 11/28/2019 12:55 PM CDT Called and spoke with patient who stated that her Animal Physiology Teacher from her job told patient that unless she or someone in her family actually has the virus that they cannot take off from work, but if someone is actively sick that she then could use FMLA. Patient stated that she will call back on Sunday if she requires the Letter, and will tell us then what the Fax number is to send the letter. * Telephone Encounter - Catherine Salmeron APRN-CNP - 11/28/2019 11:55 AM CDT Letter composed to take 14 days off work starting today, ending December 12. Please find out where she would like letter faxed. 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 Patient states no symptoms, was given the Website: and the [employer] phone number. Patient is going to call her Union Rep. Patient is scheduled for work today, and was cautioned that thisTNs could not say she should stay home, or that the DICE MAKER would give her a Letter, or could not speak for her employer about his reaction, because patient's was also on the call and pressing these issues.. Will request GIANNA Lopez please call patient yung. Note: Patient found out from a family member of one of the residents of the 3 that were hospitalized that the resident was positive for De Leon, patient stated that the job is not telling the workers about the x 3 positive residents who were sent to the hospital. May call patient: [phone] documented in this encounter Plan of Treatment Upcoming Encounters Date Type Department Care Team (Late st Contact Info) Description 12/15/2024 1:00 PM CDT Office Visit [facility] - Internal Med [address] [facility] [place] [address] Neil Velasquez MD [address] [facility] [place] [address] documented as of this encounter Visit Diagnoses Not on filedocumented in this encounter
--- OUTSIDE RECORDS SUMMARY | 2024-08-02 10:01 | XMS_ITS | Encounter Summary ---
Author Organization [facility] Health Address [address] [facility] [place] [address] Care Team Providers Care Die Hardener Name Role Phone Unavailable Primary Care Provider Unavailabl e Encounter Details Date Type Department Care Team (Late st Contact Info) Description 05/05/2020 1:20 PM CDT Office Visit [facility] General Internal Medicine [address] [facility] [place] [address] Essential hypertension (Primary Dx) Social History Tobacco [...] Sign Reading Time Taken Comments Blood Pressure 180/120 05/05/2020 1:20 PM CDT Pulse 60 05/05/2020 12:40 PM CDT Temperature 35.7 ??C (96.3 ??F) 05/05/2020 12:40 PM C DT Respiratory Rate - - Oxygen Saturation - - Inhaled Oxygen Concentration - - Weight 127.9 kg (282 lb) 05/05/2020 12:40 PM CDT Height - - Body Mass Index 46.93 09/15/2019 12:50 PM KNITTING MACHINE OPERATOR documented in this encounter Patient Instructions * Patient Instructions* Catherine Salmeron, BECCA-STOPER - 05/05/2020 1:26 PM CDT Our office is on the move! Beginning April 12, your [facility] doctor will see you in a new location. [facility] Medicine 2nd Floor [address] [place] [address] How to Contact Us Between Office Visits [...] to be seen. Please call us at [phone], option 1 thenoption 1 in the morning you would like to be seen. For scheduling routine appointments, requesting refills or leaving a message for your doctor, the office phone is [phone]. You will be given options to get to the assistance you need. Phone lines are open from 8:00 am to4:30 pm Sunday through Sunday. All prescription refills must be requested during regular office phone hours. Our fax number is [phone]. After hours urgent calls that cannot wait untill phone lines are open on the next business day are given to the General Internal Medicine physician medical operations supervisor. Please call [phone]. Identify yourself as a patient in our practice and give the film casting operator your doctor's name. The film casting operator will contact the physician medical operations supervisor. You can generally expect a return call within 30 minutes. On weekends, physicians are seeing hospitalized patients and there maybe a longer wait. Visit our website at [email or web address] for information about our practice and an interactive health encyclopedia. Our clinic's missed appointment policy is: - Patients with 3 consecutively missed appointments OR 3 missed appointments in a 12 month period will no longer be seen by General Internal Medicine. They will be asked to seek Primary Care outside of [facility]. - A missed appointment is defined as: * An appointment cancelled less than 24 hours in advance *Arriving to a scheduled appointment too late to be seen (Patients who arrive to clinic later than their scheduled appointment time may not be seen) * Not showing up for an appointment documented in this encounter Progress Notes * Catherine Salmeron APRN-CNP - 05/05/2020 1:20 PM CDT Internal Medicine Acute Care Note CC: Elevated BP. PCP: GIANNA Howe HPI: Mauricio Larios is a 55 year old female presenting for elevated BP. Patient, with PMH significant for HTN, DM2, retinopathy, nephropathy, HLD, obesity, thyromegaly, TIA, presenting for elevated BP. Was attending an appointment with her and asked for her BP brennon checked. It was 200s/90s and patient was scheduled in ACS for elevated BP. Asked to have BP checked because she did not feel good this morning. Had some abdominal pain, which has resolved. Notes pain improved after taking BP medication. Denies chest pain, SOB, headaches, vision changes, lightheadedness, syncope. Had palpitations this morning, but resolved. Denies high sodium intake. Current HTN meds include lisinopril 40mg daily. Hydralazine 50mg BID, and carvedilol 25mg BID. Notes she has not had hydralazine. Past Medical History 05/05/2020: Reviewed and Updated; see Epic History tab for details Past Surgical History 05/05/2020: Reviewed and Updated; see Epic History tab for details Past Family History 05/05/2020: Reviewed and Updated; see Epic History tab for details Social History 05/05/2020: Reviewed and Updated; see Epic History tab for details Current Medications: Reviewed and up to date in Epic Medication tab Current Outpatient Medications Medication Sig ??? aspirin (ASPIRIN) 81 MG tablet ??? atorvastatin (LIPITOR) 40 MG tablet Take 1 tablet by mouth at bedtime (Patient not taking: Reported on 05/05/2020) ??? Blood Glucose Monitoring Suppl (ACCU-CHEK GUIDE) w/Device KIT ??? carvedilol (COREG) 25 MG tablet Take 1 tablet by mouth 2 times daily with morning and evening meal ??? ferrous sulfate 325 (65 FE) MG tablet Take 1 tablet by mouth 2 times daily with morning and evening meal ??? glipiZIDE (GLUCOTROL) 5 MG tablet Take 1 tablet by mouth 2 times daily, before breakfast and supper (Patient not taking: Reported on 05/05/2020) ??? Glucose Blood (BLOOD GLUCOSE TEST STRIPS) STRP Use 1 strip TID. ??? hydrALAZINE (APRESOLINE) 25 MG tablet Take 2 tablets by mouth 2 times daily FOR BLOOD PRESSURE (Patient not taking: Reported on 05/05/2020) ??? LANCETS SUPER THIN 28G MISC Use TID. ??? lisinopril (PRINIVIL; ZESTRIL) 40 MG tablet Take 1 tablet by mouth once daily No current facility-administered medications for this visit. Allergies: Allergies Allergen Reactions ??? Hydrocodone-Acetaminophen Rash Vicodin ??? Lovejoy Itching Review of Systems: Gen: Denies fevers, chills Eyes: Denies change in vision CV: Denies chest pain. Reports she had palpitations that resolved. Resp: Denies SOB GI: Reports abdominal pain that has resolved Neuro: Denies focal weakness, LOC, lightheadedness Physical Exam: BP 180/120 Pulse 60 Temp 96.3 ??F (35.7 ??C) Wt 282 lb (127.9 kg) BMI 46.93 kg/m2 Gen: Sitting up in bed; NAD, conversational, pleasant, cooperative Eyes: EOMI; anicteric, non-injected sclerae CV: Normal S1, S2; RRR; no MRGs appreciated Pulm: CTAB; no wheezes or crackles Neuro: No focal neurologic deficits Psych: AOx3; calm, congruent affect EKG: Personally reviewed with Dr. Tello. Has ST depression. Assessment and Plan: 1. Essential hypertension -Poorly controlled with poor compliance. - PROC EKG IN CLINIC- SB with ST depression. Does have previous T wave inversion, but ST changes present on EKG. Reviewed with Dr. Tello. -Sent to the ER for further evaluation. Transported with MA. -Report called to ED cupola charger. Patient to RTC as previously scheduled with PCP. Call with any questions or concerns in the interim. GIANNA Howe documented in this encounter Plan of Treatment Upcoming Encounters Date Type Department Care Team (Late st Contact Info) Description 12/15/2024 1:00 PM CDT Office Visit [facility] - Internal Med [address] [facility] [address] [place] [address] Neil Velasquez MD [address] [facility] [place] [address] documented as of this encounter Procedures Procedure Name Priority Date/Time Associated Diagnosis Comments PROC EKG IN CLINIC Routine 05/05/2020 Essential hypertension documented in this encounter Results * PROC EKG IN CLINIC (05/05/2020) Narrative Catherine Salmeron, GIANNA - 05/05/[address] depression Catherine KATZ ECG ORDERABLES documented in this encounter Visit Diagnoses Diagnosis Essential hypertension- Primary documented in this encounter
--- OUTSIDE RECORDS SUMMARY | 2024-08-02 10:01 | XMS_ITS | Encounter Summary ---
Author Organization [facility] Health Address [address] [place] [address] Care Team Providers Care Service Order Dispatcher Chief Name Role Phone Unavailable Primary Care Provider Unavailabl e Encounter Details Date Type Department Care Team (Late Contact Info) Description 08/21/2019 Orders Only [facility] General Internal Medicine [address] [address] Catherine Salmeron, RETAIL LOAN OFFICER-ELECTRONIC WARFARE SPECIALIST [address] [facility] 2L DIV OF [facility] [place] [address] Social History Tobacco Use Types Packs/Day Years [...] 1:00 PM CDT Office Visit [facility] - Internal Med [address] [facility], [place] [phone] Neil Velasquez MD [address] [facility]?? [place] [address] documented as of this encounter Procedures Procedure Name Priority Date/Time Associated Diagnosis Comments URINALYSIS REFLEX TO MICROSCOPIC NO CULTURE 09/05/2019 8:26 AM HEAD OPERATOR HEMOGLOBIN A1C 09/05/2019 8:26 AM HEAD OPERATOR CBC W/O DIFFERENTIAL 09/05/2019 8:26 AM HEAD OPERATOR IRON + TIBC PANEL 09/05/2019 8:2 6 AM HEAD OPERATOR LIPID PROFILE 09/05/2019 8:26 AM HEAD OPERATOR MICROALB/CREAT RATIO URINE RANDOM PANEL 08/21/2019 8:13 AM HEAD OPERATOR URINALYSIS REFLEX TO MICROSCOPIC NO CULTURE 08/21/2019 8:13 AM HEAD OPERATOR TSH 08/21/2019 8:13 AM HEAD OPERATOR T4 FREE 08/21/2019 8:13 AM HEAD OPERATOR PROTEIN ELECTROPHORESIS BLOOD 08/21/2019 8:13 AM HEAD OPERATOR documented in this encounter Results * (ABNORMAL) URINALYSIS REFLEX TO MICROSCOPIC NO CULTURE (09/05/2019 8:26 AM HEAD OPERATOR) Color UA YELLOW YELLOW [facility] Appearance CLEAR CLEAR [facility] Specific [place] UA 1.012 1.001 - 1.035 [facility] pH [...] BEEN MADE TO NAME Test Performed at: [facility] [address] [place] ??[phone] KATHY PEREZ DO,MPH 09/05/2019 8:26 AM HEAD OPERATOR 09/05/2019 8:27 AM HEAD OPERATOR Catherine Salmeron APRN-ELECTRONIC WARFARE SPECIALIST LAB - URINALYSIS ORDERABLES Performing Organization Address [facility] de Phone Number [facility] [address] [place] [phone] * (ABNORMAL) HEMOGLOBIN A1C (09/05/2019 8:26 AM HEAD OPERATOR) Hemoglobin A1c 7.8(H) <5.7 % of total Hgb [facility] Comment: [...] diabetes for children. ?? REPORT COMMENT: FASTING:YES AN UPDATE OR CORRECTION HAS BEEN MADE TO NAME Test Performed at: [facility]ITAL[facility] ??[phone] KATHY PEREZ DO,MPH 09/05/2019 8:26 AM HEAD OPERATOR 09/05/2019 8:27 AM HEAD OPERATOR Catherine Salmeron APRN-ELECTRONIC WARFARE SPECIALIST LAB - CHEMISTRY ORDERABLES Performing Organization Address [facility] de Phone Number [facility] [address] [place] [address] * (ABNORMAL) CBC W/O DIFFERENTIAL (09/05/2019 8:26 AM HEAD OPERATOR) White Blood Cell Count 5.8 3.8 - 10.8 Thousand/u L [facility] RBC 4.98 3.80 - 5.10 Million/uL [facility] Hemoglobin 13.0 11.7 - 15.5 g/dL [facility] Hematocrit 42.5 35.0 - 45.0 % [facility] MCV 85.3 80.0 - 100.0 fL [facility] MCH 26.1(L) 27.0 - 33.0 pg [facility] MCHC 30.6(L) 32.0 - 36.0 g/dL [facility] RDW 13.3 11.0 - 15.0 % [facility] Platelet Count 281 140 - 400 Thousand/u L [facility] MPV 11.5 7.5 - 12.5 fL [facility] Comment: Test Performed at: [facility] [address] [place] ??[phone] KATHY PEREZ DO,MPH 09/05/2019 8:26 AM HEAD OPERATOR 09/05/2019 8:27 AM HEAD OPERATOR Catherine [facility] LAB - HEMATOLOGY ORDERABLES Performing Organization Address [facility] Co de Phone Number [facility] [address] [place] [address] * IRON + TIBC PANEL (09/05/2019 8:26 AM HEAD OPERATOR) Pathologist [facility] Iron 68 45 - 160 mcg/dL [facility] TIBC 299 250 - 450 mcg/dL (calc) [facility] % Saturation 23 16 - 45 % (calc) [facility] Comment: Test Performed at: [facility] ??[phone] KATHY PEREZ DO,MPH 09/05/2019 8:26 AM HEAD OPERATOR 09/05/2019 8:27 AM HEAD OPERATOR Catherine [facility]meron [facility] LAB - CHEMISTRY ORDERABLES Performing Organization Address [facility] de Phone Number [facility] [address] [place] [address] * (ABNORMAL) LIPID PROFILE (09/05/2019 8:26 AM HEAD OPERATOR) Cholesterol 140 <200 mg/dL [facility] HDL Cholesterol 50(L) >50 mg/dL [facility] Triglycerides 103 <150 mg/dL [facility] LDL Calculated 71 mg/dL (calc) [facility] Comment: Reference range: <100 Desirable range <100 mg/dL for primary prevention; ?? <70 mg/dL for patients with CHD or diabetic patients with > or = 2 CHD risk factors. LDL-C is now calculated using the Keysha calculation, which is a validated novel method providing better accuracy than the Friedewald equation in the estimation of LDL-C. Tung BERGMAN et al. SEBASTIAN. 2013;310(19): 2444-0352 (http://education.[employer].Metrilo/faq/BHF410) CHOL/HDLC RATIO 2.8 <5.0 (calc) [facility] Non HDL Cholesterol 90 <130 mg/dL (calc) [facility] Comment: For patients with diabetes plus 1 major ASCVD risk factor, treating to a non-HDL-C goal of <100 mg/dL (LDL-C of <70 mg/dL) is considered a therapeutic option. Test Performed at: [employer] [place] ??[phone] KATHY PEREZ DO,MPH 09/05/2019 8:26 AM HEAD OPERATOR 09/05/2019 8:27 AM HEAD OPERATOR Catherine KATZ LAB - CHEMISTRY ORDERABLES Performing Organization Address [facility] Co de Phone Number [facility] [address] [place] [address] * (ABNORMAL) URINALYSIS REFLEX TO MICROSCOPIC NO CULTURE (08/21/2019 8:13 AM HEAD OPERATOR) Color UA YELLOW YELLOW [facility] Appearance CLEAR CLEAR [facility] Specific [place] UA 1.012 1.001 - 1.035 [facility] pH UA 7.0 5.0 - 8.0 [facility] Glucose UA NEGATIVE NEGATIVE [facility] Bilirubin UA NEGATIVE NEGATIVE [facility] Ketone UA NEGATIVE NEGATIVE [facility] Blood UA 3+(A) NEGATIVE [facility] Protein UA TRACE(A) NEGATIVE [facility] Nitrite UA NEGATIVE NEGATIVE [facility] Leukocyte UA NEGATIVE NEGATIVE [facility] WBC UA NONE SEEN < OR = 5 /HPF [facility] RBC UA 3-10(A) < OR = 2 /HPF [facility] Epithelial Cell UA 0-5 < OR = 5 /HPF [facility] Bacteria UA NONE SEEN NONE SEEN /HPF [facility] Hyaline Casts NONE SEEN NONE SEEN /LPF [facility] Comment: REPORT COMMENT: AN UPDATE OR CORRECTION HAS BEEN MADE TO NAME Test Performed at: [facility] [place] ??[phone] KATHY PEREZ DO,MPH 08/21/2019 8:13 AM HEAD OPERATOR 08/21/2019 8:16 AM HEAD OPERATOR Catherine KATZ LAB - URINALYSIS ORDERABLES Performing Organization Address City/[facility]/ZIP Co de Phone Number [facility] [address] [place] [address] * TSH (08/21/2019 8:13 AM HEAD OPERATOR) Pathologist [facility] TSH 2.72 mIU/L [facility] Comment: ?Reference Range ?> or = 20 Years ??0.40-4.50 ? Ranges ?First trimester ?0.26-2.66 ?Second trimester ?? 0.55-2.73 ?Third trimester ?0.43-2.91 REPORT COMMENT: AN UPDATE OR CORRECTION HAS BEEN MADE TO NAME Test Performed at: [facility] [address] [place] [address] ??[phone] KATHY PEREZ DO,MPH 08/21/2019 8:13 AM HEAD OPERATOR 08/21/2019 8:16 AM HEAD OPERATOR Catherine Salmeron APRN-KAYLIN LAB - CHEMISTRY ORDERABLES Performing Organization Address [facility] Phone Number [address] [address] * T4 FREE (08/21/2019 8:13 AM HEAD OPERATOR) Pathologist [facility] T4 Free 1.1 0.8 - 1.8 ng/dL [facility] Comment: Test Performed at: [facility] [id number] [place] [address] ??[phone] KATHY PEREZ DO,MPH 08/21/2019 8:13 AM HEAD OPERATOR 08/21/2019 8:16 AM HEAD OPERATOR Catherine Salmeron APRN-ELECTRONIC WARFARE SPECIALIST LAB - CHEMISTRY ORDERABLES Performing Organization Address [facility] de Phone Number [facility] [phone] [place] [phone] * (ABNORMAL) MICROALB/CREAT RATIO URINE RANDOM PANEL (08/21/2019 8:13 AM HEAD OPERATOR) Creatinine Urine 81 20 - 275 mg/dL [facility] Microalbumin Urine 10.3 mg/dL [facility] Comment: Reference Range Not established Microalbumin/Creat inine Ratio 127(H) <30 mcg/mg creat [facility] Comment: The ADA defines abnormalities in albumin excretion as follows: Category ? Result (mcg/mg creatinine) Normal ?<30 Microalbuminuria ? 30-299 Clinical albuminuria ?? > OR = 300 The ADA recommends that at least two of three specimens collected within a 3-6 month period be abnormal before considering a patient to be within a diagnostic category. REPORT COMMENT: AN UPDATE OR CORRECTION HAS BEEN MADE TO NAME Test Performed at: [employer] [place] [address] ??[phone] KATHY PEREZ DO,MPH 08/21/2019 8:13 AM HEAD OPERATOR 08/21/2019 8:16 AM HEAD OPERATOR Catherine Salmeron RETAIL LOAN OFFICER-ELECTRONIC WARFARE SPECIALIST LAB - URINE CHEM ISTRY ORDERABLES [facility] [address] [place] [address] * PROTEIN ELECTROPHORESIS BLOOD (08/21/2019 8:13 AM HEAD OPERATOR) Protein Total 7.1 6.1 - 8.1 g/dL [facility] Albumin 3.9 3.8 - 4.8 g/dL [facility] Alpha-1 Globulin 0.3 0.2 - 0.3 g/dL [facility] Amirt-4-Ztbhtdch 0.7 0.5 - 0.9 g/dL [facility] Beta-1 Globulin g/dL 0.5 0.4 - 0.6 g/dL [facility] Beta-2 Globulin 0.5 0.2 - 0.5 g/dL [facility] Gamma Globulin 1.3 0.8 - 1.7 g/dL [facility] Abnormal Protein Band [facility] Abnormal Protein Band 2 [facility] Abnormal Protein Band 3 [facility] Interpretation [facility] Comment: No restricted band (M-spike) seen. Test Performed at: [employer] [place] ??[phone] KATHY PEREZ DO,MPH 08/21/2019 8:13 AM HEAD OPERATOR 08/21/2019 8:16 AM HEAD OPERATOR Catherine Salmeron RETAIL LOAN OFFICER-ELECTRONIC WARFARE SPECIALIST LAB - CHEMISTRY ORDERABLES Performing Organization Address City/State/[facility] Co de Phone Number [facility] [address] [place] [address] documented in this encounter Visit Diagnoses Not on filedocumented in this encounter
--- OUTSIDE RECORDS SUMMARY | 2024-08-02 10:01 | XMS_ITS | Encounter Summary ---
Author Organization [facility] Address [address] [facility] [place] [address] Care Team Providers Care Basket Mender Name Role Phone Unavailable Primary Care Provider Unavailabl e Reason for Visit * Reason Onset Date Comments MEDICATION REFILL 06/29/2020 Encounter Details Date Type Department Care Team (Late st Contact Info) Description 06/29/2020 Refill [facility] General Internal Medicine [facility] [facility], [place] [phone] Catherine Salmeron, TOOL AND DIE MAKER APPRENTICE-CONTRACTING MANAGER [address] [place] [address] OF [facility] [place] [address] MEDICATION REFILL Social History Tobacco Use Types [...] AM CDT documented as of this encounter Miscellaneous Notes * Telephone Encounter - Shelbie Turner LPN - 06/29/2020 12:54 PM FISH HATCHERY MAN Refill Request Mauricio Damian Mark NEREIDA: 05.12.20 NOV scheduled: 08.11.20 LRF: 05.05.20 Qty Disp: 60 # of refills: 0 Allergies: Allergies Allergen Reactions ??? Hydrocodone-Acetaminophen Rash Vicodin ??? [place] Itching Pended Medication Order: Requested Prescriptions Pending Prescriptions Disp Refills ??? carvedilol (COREG) 25 MG tablet 60 tablet 3 Sig: Take 1 tablet by mouth 2 times daily with morning and evening meal HATCHERY MAN documented in this encounter Plan of Treatment Upcoming Encounters Date Type Department Care Team (Late st Contact Info) Description 12/15/2024 1:00 PM CDT Office Visit [facility] Physician [facility] - Internal Med [address] [facility] [place] [address] Neil Velasquez MD [address] [facility] [place] [address] documented as of this encounter Visit Diagnoses Not on filedocumented in this encounter
--- OUTSIDE RECORDS SUMMARY | 2024-08-02 10:01 | XMS_ITS | Encounter Summary ---
Author Organization [facility] Health Address [address] [facility] [place] [address] Care Team Providers Care Inside Barrel Polisher Name Role Phone Unavailable Primary Care Provider Unavailabl e Reason for Visit * Reason Onset Date Comments MEDICATION REFILL 07/29/2020 Encounter Details Date Type Department Care Team (Late st Contact Info) Description 07/29/2020 Refill [facility] General Internal Medicine [facility] [facility], [place] [address] Catherine Salmeron, CHOCOLATIER-IT APPLICATION ADMINISTRATOR [address] [place] [address] DIV OF [facility] [place] [address] MEDICATION REFILL Social History Tobacco Use Types [...] * Telephone Encounter - Laura Kern - 07/29/2020 2:40 PM CST Refill Request Mauricio Flores NEREIDA: 05/12/20 NOV due: 08/11/20 NOV scheduled: 08/11/20 LRF: 07/06/20 Qty Disp: 90 # of refills: 2 Allergies: Allergies Allergen Reactions ??? Hydrocodone-Acetaminophen Rash Vicodin ??? [place] Itching Pended Medication Order: Requested Prescriptions Pending Prescriptions Disp Refills ??? hydrALAZINE (APRESOLINE) 50 MG tablet 90 tablet 2 Sig: Take 1 tablet by mouth 3 times daily [facility] documented in this encounter Plan of Treatment Upcoming Encounters Date Type Department Care Team (Late st Contact Info) Description 12/15/2024 1:00 PM CDT Office Visit [facility] Physician Group - Internal Med [address] [facility], [place] [address] Neil Velasquez MD [address] [facility] [place] [address] documented as of this encounter Visit Diagnoses Not on filedocumented in this encounter
--- OUTSIDE RECORDS SUMMARY | 2024-08-02 10:01 | XMS_ITS | Encounter Summary ---
Author Organization [facility] Health Address [address] [place] [address] Care Team Providers Care Dirt Shoveler Name Role Phone Unavailable Primary Care Provider Unavailabl e Reason for Visit * Auth/Cert Specialty Diagnoses / Procedures Referred By Jimmy schaeffer Referred To Contact Diagnoses Screen for colon cancer Screen for colon cancer [Z12.11] Procedures WA COLONOSCOPY,DIAGNOSTIC WA COLONOSCOPY,BIOPSY WA COLOREC CANC SCRN,SCR COLONOSCOPY+BE WA COLOREC CANC SCRN,SCOPY NOT HI RISK WA COLOREC CANC SCRN,COLONOSCPY HI RISK COLONOSCOPY SCREEN Referral ID Status Reason Start Date Expiration Date Visits Re quested Visits Authorized [id number] 1 1 Encounter Details Date Type Department Care Team (Late st Contact Info) Description 12/08/2020 3:23 PM CDT Anesthesia Event [facility] ENDOSCOPY [address] [place] [id number] Jennifer Phelan MD [address] [facility] [place] [address] Anesthesia Record Procedure Summary Procedure Name Responsible Anesthesiologist Anesthesia Start Time Anesthesia Stop Time COLONOSCOPY Jennifer Phelan MD 12/08/20 1523 12/08/20 1606 Events Date Time Event Comment 12/08/2020 1455 1523 An Start 1523 Pt In Room 1524 An Start Data 1530 Anes Timeout 1530 Timeout Anesthesia part icipated in timeout at the time documented in the record by nursing. 1535 PT Reassessment 1536 Induction 1537 Anes Ready 1537 Proc Start 1554 Proc Stop 1559 An Emergence 1601 an stop data 1601 Pt out of Room 1601 ANPTO2 1606 An Stop Meds Name Total lidocaine PF 2% 100 mg propofol 200mg/20mL injection 150 mg propofol 500 mg/50 mL injection 323.85 m g NS (0.9% NaCl) 500 mL * Agents Name Insp. N2O Exp. N2O O2 * Blood No blood administrations on file. Lines, Drains, and Airways Type Details Placement Removal Peripheral IV Date: 12/08/20; Time : 1507; Orientation: Right; Placed By: Vicki NI; Tolerance: Well 12/08/20 1507 by Cee Arshad RN 12/08/20 1640 by Hannah Lee RN documented in this encounter Social History Tobacco Use Types Packs/Day Years Used Date Smoking Tobacco: Never Smokeless Tobacco: Never Alcohol Use Standard Drinks/Week Comments Yes 1 (1 standard drink = 0.6 oz pur e alcohol) socially Sex and Gender Information Value Date Recorded Sex Assigned at Not on file Gender Identity Not on file Sexual Orientation Not on file documented as of this encounter Progress Notes * Jennifer Phelan MD - 12/08/2020 4:42 PM CDT ANESTHESIA POSTOP EVALUATION NOTE Procedure: COLONOSCOPY (N/A ) Mauricio Flores is a 55 year old female Patient Vitals for the past 6 hrs: BP Temp Pulse Resp SpO2 Pain Rating Score #1 Pain Scale/Observation 12/08/20 1407 -- 97.4 ??F (36.3 ??C) -- -- -- -- -- 12/08/20 1416 (!) 196/90 -- 57 20 97 % 0 N 12/08/20 1430 (!) 193/81 -- 57 24 97 % -- -- 12/08/20 1604 (!) 184/96 97.6 ??F (36.4 ??C) 62 19 -- -- -- 12/08/20 1605 -- -- 61 16 97 % 0 N 12/08/20 1615 (!) 202/96 -- 54 19 97 % -- -- 12/08/20 1625 (!) 214/97 -- 52 16 96 % -- -- 12/08/20 1627 (!) 200/101 -- 54 19 95 % -- -- 12/08/20 1630 (!) 200/101 -- -- -- -- -- -- Anesthesia Type: MAC Pre-op Diagnosis Codes: * Screen for colon cancer [Z12.11] Mental Status: awake, alert, neurologic status has returned to preoperative level and sufficiently recovered from acute administration of anesthesia to participate in the evaluation Respiratory Function: natural Cardiac Function: stable Postop Pain: acceptable to the patient Postop Hydration: adequate Postop Nausea: none Assessment: no apparent anesthetic complications, patient tolerated procedure well and no evidence of recall Patient Disposition: Release from Anesthesia Care COMPLICATIONS: No complications documented. * Jennifer Phelan MD - 12/08/2020 2:33 PM CDT ANESTHESIA PREOPERATIVE EVALUATION NOTE Procedure: COLONOSCOPY (N/A ) NPO status: Since Midnight (12/08/2020 2:23 PM) Vitals: Patient Vitals for the past 6 hrs: BP Temp Pulse Resp SpO2 Pain Rating Score #1 12/08/20 1416 (!) 196/90 -- 57 20 97 % 0 12/08/20 1407 -- 97.4 ??F (36.3 ??C) -- -- -- -- ANESTHESIA PRE-EVALUATION NOTE History of Present Illness: 55 yo with h/o DM,HTN,TIA,OBESITY, HLD,neuropathy Physical Exam: Orientation X3 Airway/Mallampati Score: III Mouth Opening Distance: 2.5 fingerwidths Neck ROM: full TM Distance: > 3 FB Teeth: normal Heart: normal - S1 S2 (SB 57) Abdomen Exam: obese and distended Review of Systems: History of anesthetic complications: No Malignant Hyperthermia: No GERD: Yes Poor Exercise Tolerance: No Recent Chest Pain: No Shortness of Breath: No AICD/Pacemaker: No Renal Disease: No Diagnostic Tests: Lab(s) reviewed: Yes (04/2020). ANESTHESIA PLAN ASA Score: 3 NPO Status: Patient instructed to be NPO after midnight and No liquids within 2 hours Anesthesia Plan: MAC Planned Induction: intravenous Planned Postop Destination: endo Anesthetic plan was discussed with: patient, spouse Anesthetic Plan discussion was: Consented The patient's procedural Anesthetic Plan was discussed with the ASSET PROTECTION PROFESSIONAL. BMI, Height, Weight Tobacco History Estimated body mass index is 45.19 kg/m?? as calculated from the following: Height as of this encounter: 1.676 m (5' 6 ). Weight as of this encounter: 127 kg (280 lb). Social History Tobacco Use Smoking Status Never Smoker Smokeless Tobacco Never Used Alcohol History Drug History Social History Substance and Sexual Activity Alcohol Use Yes ??? Alcohol/week: 1.0 standard drinks Comment: socially Social History Substance and Sexual Activity Drug Use No Outpatient Medications: Inpatient Medications: Outpatient Medications Marked as Taking for the 12/08/20 encounter (Hospital Encounter) Medication Sig Last Dose ??? Ascorbic Acid (ALPHONSE-C PO) Past Week at Unknown time ??? aspirin Past Week at Unknown time ??? atorvastatin Take 1 (one) tablet by mouth at bedtime Past Week at Unknown time ??? bisacodyl EC Take all 4 tablets at noon the day before your colonoscopy. 12/07/2020 at 1200 ??? carvedilol Take 1 (one) tablet by mouth 2 times daily with morning and evening meal 12/08/2020 at 0900 ??? ferrous sulfate Take 1 tablet by mouth 2 times daily with morning and evening meal Past Week atUnknown time ??? gabapentin Take 1 (one) capsule by mouth 3 times daily 12/08/2020 at 0900 ??? glipiZIDE Take 1 tablet by mouth 2 times daily, before breakfast and supper Past Month at Unknown time ??? hydrALAZINE Take 1 tablet by mouth 3 times daily FOR BLOOD PRESSURE 12/08/2020 at 0900 ??? hydrALAZINE Take 1 (one) tablet by mouth 3 times daily 12/08/2020 at 0900 ??? lisinopril Take 1 (one) tablet by mouth once daily 12/08/2020 at 0900 ??? polyethylene glycol 3350 Mix entire bottle with 64oz of clear liquid. Drink 1/2 of mixture at 5pm the night before colonoscopy, 1/2 at 4am the day of colonoscopy. 12/08/2020 at 0900 ??? VITAMIN D PO Past Week at Unknown time Current Facility-Administered Medications Medication Dose Last Admin ??? 0.9% NaCl IV ??? 0.9% NaCl 3 mL Allergies: Allergies Allergen Reactions ??? Hydrocodone-Acetaminophen Rash Vicodin ??? [place] Itching Relevant Problems No relevant active problems Problem List: Patient Active Problem List Diagnosis Date Noted ??? Hyperlipidemia 02/25/2019 Priority: Not Prioritized ??? Nephropathy 02/25/2019 Priority: Not Prioritized ??? Pericardial cyst 02/25/2019 Priority: Not Prioritized ??? Microcytosis 02/25/2019 Priority: Not Prioritized ??? Isolated proteinuria 12/30/2018 Priority: Not Prioritized ??? Class 3 severe obesity with serious comorbidity and body mass index (BMI) of 45.0 to 49.9 in adult 11/19/2018 Priority: Not Prioritized ??? Right upper quadrant abdominal pain 11/19/2018 Priority: Not Prioritized ??? Type 2 diabetes mellitus with complications 09/06/2015 Eye exam 08/17/2015 ??? Personal history of transient ischemic attack (TIA), and cerebral infarction without residual deficits 04/12/2015 ??? Family history of ischemic heart disease and other diseases of the circulatory system 09/19/2014 ??? Essential hypertension 08/31/2014 Medical History: Past Medical History: Diagnosis Date ??? Hypertension ??? Nephropathy ??? Pericardial cyst ??? TIA (transient ischemic attack) ??? Type 2 diabetes mellitus Surgical History: Past Surgical History: Procedure Laterality Date ??? Section x2 ??? Cholecystectomy ??? Hernia Repair Lab Results: No results found for requested labs within last 120 days. No results found for requested labs within last 120 days. documented in this encounter Miscellaneous Notes * Anesthesia Transfer of Care - Suzanna Edwards, SUPERVISOR SCREEN PRINTING-ASSET PROTECTION PROFESSIONAL - 12/08/2020 4:09 PM CDT ANESTHESIA TRANSFER OF CARE NOTE Today's Date: 12/08/2020 Date of : 1965 Patient: Mauricio Flores Procedure(s) with comments: COLONOSCOPY - normal colon external hemorrhoids Surgeon(s): Primary: Sara Ramsey MD Preop Diagnosis: Pre-op Diagnois: * Screen for colon cancer [Z12.11] Pre-op Meds (From admission, onward) Start Stop Status Route Frequency Ordered 12/08/20 1445 0.9% NaCl infusion -- Dispensed IV CONTINUOUS 12/08/20 1432 12/08/20 1432 0.9% NaCl injection 3 mL -- Dispensed IK PRE-PROCEDURE MULTIPLE 12/08/20 1432 Post-op Diagnosis: * Screen for colon cancer [Z12.11] . Allergies Allergen Reactions ??? Hydrocodone-Acetaminophen Rash Vicodin ??? [place] Itching Vitals: Patient Vitals for the past 3 hrs: BP Temp Pulse Resp SpO2 Pain Rating Score #1 12/08/20 1605 -- -- 61 16 97 % -- 12/08/20 1604 (!) 184/96 -- 62 (!) 43 -- -- 12/08/20 1430 (!) 193/81 -- 57 24 97 % -- 12/08/20 1416 (!) 196/90 -- 57 20 97 % 0 12/08/20 1407 -- 97.4 ??F (36.3 ??C) -- -- -- -- Lines, Drains, and Airways Type Details Placement Removal Peripheral IV Date: 12/08/20; Time: 1506; Orientation: Right; Location: Antecubital; Placed By: Shaun; Gauge: 20 Gauge; Locals: None; Tolerance: Well 12/08/20 1507 by Cee Arshad, LAST Intraprocedure I/O Totals Intake NS (0.9% NaCl) 500.00 mL Total Intake 500 mL Patient Transfer Location: Endo Recovery Transport Airway: spontaneous respirations Transport Monitoring: heart rate and continuous pulse oximetry Complications: None Handoff Given? Yes Checklist or Protocol - The ortega handoff elements that must be included in the transfer of care checklist include: 1. Identification of patient. 2. Identification of responsible practitioner (PACU nurse or advanced practitioner). 3. Discussion of pertinent medical history. 4. Discussion of the surgical/procedure course (procedure, reason for surgery, procedure performed). 5. Intraoperative anesthetic management and issue/concerns. 6. Expectations/Plans for the early post-procedure period. 7. Opportunity for questions and acknowledgement of understanding of report from the receiving PACUteam. Suzanna Edwards, BECCA-ASSET PROTECTION PROFESSIONAL documented in this encounter Plan of Treatment Upcoming Encounters Date Type Department Care Team (Late st Contact Info) Description 12/15/2024 1:00 PM CDT Office Visit [facility] - Internal Med [address] [facility] [place] [address] Neil Velasquez MD [address] [facility] [place] [address] documented as of this encounter Visit Diagnoses Not on filedocumented in this encounter Administered Medications Inactive Administered Medications - up to 3 most recent administrations Medication Order MAR Action Action Date Dose Rate Site 0.9% NaCl infusion Intravenous, CONTINUOUS PRN, Starting on Sun12/08/20 at 1515, Until Sun12/08/20 at 1609, Anesthesia Intra-op $ New Bag/Syringe 12/08/2020 3:15 PM CDT lidocaine hcl (PF) (Xylocaine Mpf) 2 % injection Infiltration, PRN, Starting on Sun12/08/20 at 1536, Until Sun12/08/20 at 1609, Anesthesia Intra-op $ Given 12/08/2020 3:36 PM CDT 100 mg propofol (Diprivan) infusion Intravenous, CONTINUOUS PRN, Starting on Sun12/08/20 at 1536, Until Sun12/08/20 at 1609, Anesthesia Intra-op $ New Bag/Syringe 12/08/2020 3:36 PM CDT 150 mcg/kg/min 114.3 mL/hr propofol (Diprivan) injection Intravenous, PRN, Starting on Sun12/08/20 at 1536, Until Sun12/08/20 at 1609, Anesthesia Intra-op $ Given 12/08/2020 3:36 PM CDT 150 mg documented in this encounter
--- OUTSIDE RECORDS SUMMARY | 2024-08-02 10:01 | XMS_ITS | Encounter Summary ---
Author Organization [facility] Health Address [address] [facility] [place] [address] Care Team Providers Care Auto Tech Name Role Phone Unavailable Primary Care Provider Unavailabl e Encounter Details Date Type Department Care Team (Latest Contact Info) Description 08/11/2020 9:50 AM MARKETING CLERK Video Visit [facility] General Internal Medicine [address] [place] [address], [place] [id number] Catherine Salmeron, WIND TURBINE MECHANIC-MARKET NEWS REPORTER [address] [place] [address] OF [facility] [place] [address] Essential hypertension ; Nonspecific abnormal electrocardiogram (ECG) (EKG); 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); Isolated proteinuria with morphologic lesion; Hyperlipidemia, unspecified hyperlipidemia type; Pericardial cyst (HCC); TIA (transient ischemic attack); Microcytosis; Healthcare maintenance Social History Tobacco Use Types Packs/Day Years Used Date Smoking Tobacco: Never Smokeless Tobacco: Never Alcohol Use Standard Drinks/Week Comments Yes 1 (1 standard drink = 0.6 oz pur e alcohol) socially Sex and Gender Information Value Date Recorded Sex Assigned at Not on file Gender Identity Not on file Sexual Orientation Not on file documented as of this encounter Patient Instructions * Patient Instructions* Dylan Wills - 08/11/2020 9:50 AM MARKETING CLERK How to Contact Us Between Office Visits [...] to be seen. Please call us at [phone], option 1 thenoption 1 in the morning you would like to be seen. For scheduling routine appointments, requesting refills or leaving a message for your doctor, the office phone is [phone]. You will be given options to get to the assistance you need. Phone lines are open from 8:00 am to4:30 pm Sunday through Sunday. All prescription refills must be requested during regular office phone hours. Our fax number is [phone]. After hours urgent calls that cannot wait untill phone lines are open on the next business day are given to the General Internal Medicine physician medicaid collection specialist. Please call [phone]. Identify yourself as a patient in our practice and give the weigh tank operator your doctor's name. The weigh tank operator will contact the physician medicaid collection specialist. You can generally expect a return call within 30 minutes. On weekends, physicians are seeing hospitalized patients and there maybe a longer wait. Visit our website at [email or web address] for information about our practice and an interactive health encyclopedia. Our clinic's missed appointment policy is: - Patients with 3 consecutively missed appointments OR 3 missed appointments in a 12 month period will no longer be seen by General Internal Medicine. They will be asked to seek Primary Care outside of [facility]. - A missed appointment is defined as: * An appointment cancelled less than 24 hours in advance *Arriving to a scheduled appointment too late to be seen (Patients who arrive to clinic later than their scheduled appointment time may not be seen) * Not showing up for an appointment ETING CLERK documented in this encounter Progress Notes * Catherine Salmeron, WIND TURBINE MECHANIC-MARKET NEWS REPORTER - 08/11/2020 9:50 AM CST [facility] General Internal Medicine Established Patient Telephone Visit Patient Verification & Telemedicine Based Consent Today's visit was conducted virtually due to COVID-19 countermeasures. The patient has given verbalconsent to have today's visit conducted by this same means with treatment provided remotely. The patient verbally consents to the billing and collection practices of the provider's medical group. Patient Location: Her home. This encounter was performed using: Audio only. Encounter duration: 9 minutes Reason for call/Chief Complaint: Follow up. HPI: Mauricio Flores is a 55 year old Black/ female last seen in [facility] on 05/12/2020. Covid. -Reports she had covid in June. -Had cold like symptoms, which have resolved. HTN. -Meds: Lisinopril 40mg, carvedilol 25mg BID, hydralazine 50mg TID. -Home BPs: 160s/90s. -Had ECHO stress for abnormal EKG, however, was submaximal and alternate testing over but never completed. Not interested in completing at this time. Denies chest pain, palpitations, SOB, headaches or vision changes. DM2. -A1C=7.5%, 08/2019. -Medication: To be on glipizide, reports she has not been taking this. Does not recall taking this. -Statin: Atorvastatin prescribed, but has not been taking regularly. -Eye exam: 05/2019-concern for retinopathy. -Foot exam: 04/2020. -Microalbumin/creatinine ratio: Elevated 08/2019-seen by nephrology, to work on DM2 and HTN control. HLD/Obesity. -Diet/Exercise: Denies purposeful diet or exercise. -On statin therapy. ?Pericardial cyst. -Noted on outside imaging, but not on ECHO 06/2020. -Discussed with cardiology previously who recommended yearly ECHOs x 2 and then every 5 years if stable.??Usually benign if not enlarging??per Dr. Saldana. -Denies chest pain. TIA. -History of. -On daily ASA, statin therapy. Microcytosis. -On daily iron. -Resolved on last labs. -Colonoscopy scheduled 11/2020. -Denies blood in stool or urine. Past Medical History: Reviewed: Past Surgical History: Reviewed; see Epic History tab for details Social History: Reviewed; see Epic History tab for details Family History: Reviewed; see Epic History tab for details Current Medications: Reviewed and up to date in [facility] Medication tab Current Outpatient Medications Medication Sig ??? Ascorbic Acid (ALPHONSE-C PO) ??? aspirin (ASPIRIN) 81 MG tablet ??? [...] TID. (Patient not taking: Reported on 06/07/2020) ??? hydrALAZINE (APRESOLINE) 50 MG tablet Take 1 tablet by mouth 3 times daily ??? LANCETS SUPER THIN 28G MISC Use TID. (Patient not taking: Reported on 06/07/2020) ??? LISINOPRIL PO Take 40 mg by mouth ??? VITAMIN D PO No current facility-administered medications for this visit. Allergies: Allergies Allergen Reactions ??? Hydrocodone-Acetaminophen Rash Vicodin ??? [place] Itching Review of Systems: Gen: Denies fevers, chills Eyes: Denies change in vision Ears, Nose, Mouth, Throat: Denies change in hearing; denies dysphagia CV: Denies chest pain, palpitations Resp: Denies SOB, cough GI: Denies abd pain, n/v/d, constipation, melana, BRBPR : Denies dysuria, hematuria Neuro: Denies focal weakness, LOC, lightheadedness Physical Exam: There were no vitals taken for this visit. Unable to obtain VS Gen: NAD, conversational, pleasant, cooperative Respiratory: No audible wheezing. Neuro: No speech deficits noted. Psych: AOx3; calm, congruent affect Healthcare Maintenance/Preventative Health: - Cervical cancer screening (Pap q3yr 21-29, Pap+HPV q5yr >/= 30 and <65): Followed by outside [facility].?? - CRC screening (50-75): 2016. Due 2020. Scheduled 12/08/2020. - Breast ca screening (50-74; mammogram q1-2yrs >50; if 40-50 d/w patient): Completed outside with [facility]IST 2019. - Breast cancer prevention (tamoxifen if 35-60 and [place]ul[place] 5-yr risk >1.66%): NA - Tobacco use: Never smoker. - Lung ca screening (55-80 if 30-pack-yr current smoker or quit in last 15 yrs): Never smoker. - Osteoporosis screening (65+): Due at age 65. - Lipid screening (>45 unless additional risk factors):??05/2020. - Statin (mod/high intensity if clinical ASCVD, LDL>190, age 40-75 +DM &??LDL 70-189, or 10yr risk >7.5%):??Currently prescribed statin therapy.?? - Diabetes screening (BP>135/80, HLD, obesity):??05/2020=7.5%. - HIV (once, or annually if high risk): Declined at visit 11/19/18. - HepC (once if patient born between [id number]): 08/2014. - ASA ppx (>3% 5yr risk): Currently on daily ASA. - Depression screening: PHQ9?? -Obesity/physical activity/diet counseling:?? - Immunizations ?- Influenza: Due.??Declined at visit??05/12/2020. ?- HPV (<26): NA0=0. ?- Prevnar (>65 if PPSV23 naive, or at least 1 year after PPSV23): Due at age 65. ?- Pneumovax (>65 unless risk factors, 6-12mos after Prevnar): Reports she has had in the past. Declined??re- vaccination at visit 11/19/18. ?- Tdap/Td ([id number]): 11/19/18. ?- Zoster (>60): Due at age 60. Assessment & Plan: 1. Essential hypertension -Above goal. -Continue carvedilol 25mg BID, lisinopril 40mg daily and increase hydralazine to 75mg BID. - hydrALAZINE (APRESOLINE) 50 MG tablet; Take 1 tablet by mouth 3 times daily Dispense: 90 tablet; Refill: 0 - hydrALAZINE (APRESOLINE) 25 MG tablet; Take 1 tablet by mouth 3 times daily FOR BLOOD PRESSURE Dispense: 270 tablet; Refill: 4 -RTC in 2 weeks for BP check. 2. Nonspecific abnormal electrocardiogram (ECG) (EKG) -Had stress ECHO that was unremarkable, however, submaximal. Patient declined scheduling alternative testing at this time. 3. Type 2 diabetes mellitus with complications -A1C=7.5%, 08/2019. -Medication: Prescribed glipizide, but has not been taking. -Statin: Atorvastatin. -Eye exam: 05/2019-concern for retinopathy. -Foot exam: 04/2020. -Microalbumin/creatinine ratio: Elevated 08/2019-seen by nephrology, to work on DM2 and HTN control. - HEMOGLOBIN A1C -Strongly encouraged lifestyle changes. Will discuss medication changes pending A1C. 4. Isolated proteinuria with morphologic lesion -Seen by nephrology, to work on DM2 and HTN control, treat as above. 5. Hyperlipidemia, unspecified hyperlipidemia type -Continue daily atorvastatin. -Encouraged to follow a heart healthy diet and exercise. 6. Pericardial cyst -Noted on outside imaging, but not on ECHO 06/2020. -Discussed with cardiology previously who recommended yearly ECHOs x 2 and then every 5 years if stable.??Usually benign if not enlarging??per Dr. Saldana. -Continue to monitor with ECHOs. 7. TIA (transient ischemic attack) -Continue daily ASA, statin for prevention. 8. Microcytosis -Continue iron. -Keep scheduled colonoscopy. 9. Healthcare maintenance -As above. The plan was reviewed with the patient and the patient confirmed understanding of the plan and all follow-up steps. Patient to return to clinic in 2 weeks for BP check and 3 months for routine visit. GIANNA Howe ETING CLERK documented in this encounter Plan of Treatment Upcoming Encounters Date Type Department Care Team (Late st Contact Info) Description 12/15/2024 1:00 PM CDT Office Visit [facility] - Internal Med [address] [facility], [place] [address] Neil Velasquez MD [address] [facility] [place] [address] Scheduled Orders Name Type Priority Associated Diagnoses Orde r Schedule HEMOGLOBIN A1C Lab Routine 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) Ordered: 08/11/2020 documented as of this encounter Visit Diagnoses Diagnosis Essential hypertension- Primary Nonspecific abnormal electrocardiogram (ECG) (EKG) 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) Type II or unspecified type diabetes mellitus with unspecified complication, not stated as uncontrolled Isolated proteinuria with morphologic lesion Nephritis and nephropathy, not specified as acute or chronic, with unspecified pathological lesion in kidney Hyperlipidemia, unspecified hyperlipidemia type Pericardial cyst (HCC) Other specified congenital anomaly of heart TIA (transient ischemic attack) Unspecified transient cerebral ischemia Microcytosis Other abnormality of red blood cells Healthcare maintenance Routine general medical examination at a health care facility documented in this encounter
--- OUTSIDE RECORDS SUMMARY | 2024-08-02 10:01 | XMS_ITS | Encounter Summary ---
Author Organization [facility] Health Address [address] [facility] [place] [address] Care Team Providers Care Gastroenterologist Name Role Phone Rosalee Cano MD Primary Care Provider [phone] Reason for Visit * Reason Onset Date Comments MEDICATION REFILL 12/20/2020 Encounter Details Date Type Department Care Team (Late st Contact Info) Description 12/20/2020 Refill [facility] [address] [place] [address], [place] [address] Rosalee Cano MD [address] [place] [address] OF [facility] [place] [place] [address] MEDICATION REFILL Social History Tobacco Use Types [...] Telephone Encounter - Kathy Mina RN - 12/22/2020 11:14 AM CDT Pt is calling about refill of carvedilol. Refill sent to Dr Cano per Laura Kern on 12/20/20. Pts next OV will be a New To Doctor. Can providers review and send if appropriate. Pt is close to running out of the medication and said pharmacy had contacted her to call her doctor. * Telephone Encounter - Laura Kern - 12/20/2020 11:46 AM CDT Refill Request Mauricio Damian Mark NEREIDA: 10/06/20Jun due: 01/05/21Jun scheduled: 01/05/2021 LRF: 11/25/20 Qty Disp: 60 # of refills: 1 Allergies: Allergies Allergen Reactions ??? Hydrocodone-Acetaminophen Rash Vicodin ??? [place] Itching Pended Medication Order: Requested Prescriptions Pending Prescriptions Disp Refills ??? carvedilol (COREG) 25 MG tablet 60 tablet 1 Sig: Take 1 (one) tablet by mouth 2 times daily with morning and evening meal documented in this encounter Plan of Treatment Upcoming Encounters Date Type Department Care Team (Late st Contact Info) Description 12/15/2024 1:00 PM CDT Office Visit [facility] - Internal Med [address] [facility], [place] [address] Neil Velasquez MD [address] [facility] [place] [address] documented as of this encounter Visit Diagnoses Not on filedocumented in this encounter Care Teams Gastroenterologist Relationship Specialty Start Date End Date Rosalee Cano MD [address] [facility] 2L DIV OF [place] [address] PCP - General 12/10/20 04/12/21 documented as of this encounter
--- OUTSIDE RECORDS SUMMARY | 2024-08-02 10:01 | XMS_ITS | Encounter Summary ---
Author Organization [facility] Health Address [address] [facility] [place] [address] Care Team Providers Care Chemistry Lab Instructor Name Role Phone Unavailable Primary Care Provider Unavailabl e Reason for Visit * Reason Onset Date Comments Medication Issue 05/28/2019 Encounter Details Date Type Department Care Team (Late st Contact Info) Description 05/28/2019 Telephone [facility] [address] [address] Catherine Salmeron APRN-CNP [address] OF [facility] [place] [address] Medication Issue Social History Tobacco Use Types Packs/Day Years Used Date Smoking Tobacco: Never Smokeless Tobacco: Never Alcohol Use Standard Drinks/Week Comments Yes 1 (1 standard drink = 0.6 oz pur e alcohol) Sex and Gender Information Value Date Recorded Sex Assigned at Not on file Gender Identity Not on file Sexual Orientation Not on file documented as of this encounter Miscellaneous Notes * Telephone Encounter - Catherine Young APRN-CNP - 05/28/2019 10:16 AM CDT Order sent. \GIANNA Fritz * Telephone Encounter - Shelbie Turner LPN - 05/28/2019 10:05 AM CDT Yes. You will need to send a new order to the pharmacy. * Telephone Encounter - Catherine Young APRN-CNP - 05/28/2019 8:01 AM CDT OK to use lisinopril. Do they need an order? Catherine Chris APRN-CNP * Telephone Encounter - Shelbie Turner LPN - 05/28/2019 7:59 AM CDT Losartan is on backorder. Pharmacy requesting an alternative. documented in this encounter Plan of Treatment Upcoming Encounters Date Type Department Care Team (Late st Contact Info) Description 12/15/2024 1:00 PM CDT Office Visit [facility] - Internal Med [address] [facility], [place] [id number] Neil Velasquez MD [address] [facility] [place] [address] documented as of this encounter Visit Diagnoses Not on filedocumented in this encounter
--- OUTSIDE RECORDS SUMMARY | 2024-08-02 10:01 | XMS_ITS | Encounter Summary ---
Author Organization [facility] Health Address [address] [facility] [place] [address] Care Team Providers Care Activity Aide Name Role Phone Unavailable Primary Care Provider Unavailabl e Reason for Visit * Reason Comments Hypertension Encounter Details Date Type Department Care Team (Latest Contact Info) Description 09/29/2019 10:00 AM FAMILY LAW LEGAL ASSISTANT Clinical Support [facility] [address] [address] Essential hypertension Social History Tobacco Use Types [...] Sign Reading Time Taken Comments Blood Pressure 160/70 09/29/2019 10:00 AM FAMILY LAW LEGAL ASSISTANT Pulse 54 09/29/2019 10:00 AM FAMILY LAW LEGAL ASSISTANT Temperature - - Respiratory Rate - - Oxygen Saturation - - Inhaled Oxygen Concentration - - Weight 128.8 kg (284 lb) 09/29/2019 9:59 AM FAMILY LAW LEGAL ASSISTANT Height - - Body Mass Index 47.26 09/15/2019 12:50 PM FAMILY LAW LEGAL ASSISTANT documented in this encounter Progress Notes * Laura Kern - 09/29/2019 10:08 AM CST Patient came into office today for bp check. She had a bp of 160/90 waited 5 minutes and her secondreading was 160/70 findings was presented to josé miguel alex np. Was instructed by her to have thepatient to increase her hydralazine from 25 mg to 50 mg and to return in 2 to 4 weeks for another bp check. LY LAW LEGAL ASSISTANT documented in this encounter Miscellaneous Notes * Addendum Note - José Miguel Alex APRN-CNP - 09/29/2019 10:32 AM FAMILY LAW LEGAL ASSISTANT Addended by: JOSÉ MIGUEL ALEX on: 09/29/2019 10:32 AM Modules accepted: Orders LY LAW LEGAL ASSISTANT documented in this encounter Plan of Treatment Upcoming Encounters Date Type Department Care Team (Late st Contact Info) Description 12/15/2024 1:00 PM CDT Office Visit [facility] - Internal Med [address] [facility], [place] [phone] Neil Velasquez MD [address] [facility] [place] [address] documented as of this encounter Visit Diagnoses Diagnosis Essential hypertension- Primary documented in this encounter
--- OUTSIDE RECORDS SUMMARY | 2024-08-02 10:01 | XMS_ITS | Encounter Summary ---
Author Organization [facility] Health Address [address] [facility] [place] [address] Care Team Providers Care Non Profit Job Titles Name Role Phone Unavailable Primary Care Provider Unavailabl e Reason for Visit * Reason Comments Hypertension Encounter Details Date Type Department Care Team (Late st Contact Info) Description 09/15/2019 12:40 PM LOT TECHNICIAN Office Visit [facility] [address] [facility] [address] [place] [address] Catherine Salmeron, STRIP PICKER-MOLD WORKER [address] OF [facility] [place] [address] Essential hypertension (Primary Dx); 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); Retinopathy; Nephropathy; Proteinuria, unspecified type; Hyperlipidemia, unspecified hyperlipidemia type; Class 3 severe obesity with serious comorbidity and body mass index (BMI) of 45.0 to 49.9 in adult, unspecified obesity type (HCC); Enlarged thyroid; Pericardial cyst (HCC); Microcytosis; History of TIA (transient ischemic attack); Healthcare maintenance Social History Tobacco Use Types [...] Sign Reading Time Taken Comments Blood Pressure 170/100 09/15/2019 1:00 PM LOT TECHNICIAN Pulse 50 09/15/2019 12:50 PM LOT TECHNICIAN Temperature 36.5 ??C (97.7 ??F) 09/15/2019 12:[address] Respiratory Rate 14 09/15/2019 12:50 PM LOT TECHNICIAN Oxygen Saturation - - Inhaled Oxygen Concentration - - Weight 127.9 kg (282 lb) 09/15/2019 12:50 PM LOT TECHNICIAN Height 165.1 cm (5' 5 ) 09/15/2019 12:50 PM LOT TECHNICIAN Body Mass Index 46.93 09/15/2019 12:50 PM LOT TECHNICIAN documented in this encounter Progress Notes * Catherine Young, STRIP PICKER-MOLD WORKER - 09/15/2019 12:40 PM CST Internal Medicine Primary Care Progress Note CC: Chief Complaint Patient presents with ??? Hypertension HPI/Interval History: Mauricio Larios is a 54 year old female presenting for follow up. Patient last seen in [facility] on 07/14/2019. HTN. -Meds: lisinopril 40mg daily, carvedilol 25mg BID, hydralazine 25mg BID, however, never started hydralazine at last visit. -Has not taken BP meds ye today. -Home BPs: Not checking. -ECHO with grade 1 diastolic dysfunction. -Denies chest pain, palpitations, SOB, vision changes. Notes headache related to ear infection. DM2. -A1C=7.8%, 08/2019, improving on glipizide. -Medication: Glipizide 5mg BID. Did not tolerate metformin. Notes she has not been taking glipizide. Has been trying to work on exercise. -Statin: Atorvastatin 40mg nightly. -Eye exam: 05/2019-concern for retinopathy. -Foot exam: 11/2018. -Microalbumin/creatinine ratio: Elevated 08/2019-previously seen by nephrology, but never followed up. HLD/Obesity. -Taking atorvastatin 40mg daily. -Diet/Exercise: Trying to work out. Wt Readings from Last 3 Encounters: 09/15/19 282 lb (127.9 kg) 07/14/19 295 lb (133.8 kg) 06/23/19 290 lb (131.5 kg) Enlarged thyroid. -US ordered at last visit, not completed. Reports she cannot afford the bills and wants to hold offon scheduling. ?Pericaridal cyst. -Seen on outside imaging but not noted on ECHO 06/2019. -Discussed with cardiology who recommended yearly ECHOs x 2 and then every 5 years if stable.??Usually benign if not enlarging??per Dr. Saldana. Microcytosis. -Normal anemia profile. -Taking daily iron supplement. -Denies blood in stool or urine. History of TIA. -Taking daily ASA and statin. Feels ASA is causing increased stooling. Past Medical History 09/15/2019: Reviewed and Updated; see Epic History tab for details Past Surgical History 09/15/2019: Reviewed and Updated; see Epic History tab for details Social History 09/15/2019: Reviewed and Updated; see Epic History tab for details Family History 09/15/2019: Reviewed and Updated; see Epic History tab [...] Take 1 tablet by mouth 2 times daily,before breakfast and supper ??? Glucose Blood (BLOOD GLUCOSE TEST STRIPS) STRP Use 1 strip TID. ??? hydrALAZINE (APRESOLINE) 25 MG tablet Take 1 tablet by mouth 2 times daily FOR BLOOD PRESSURE ??? LANCETS SUPER THIN 28G MISC Use TID. ??? lisinopril (PRINIVIL; ZESTRIL) 40 MG tablet Take 1 tablet by mouth once daily No current facility-administered medications for this visit. Allergies: Allergies Allergen Reactions ??? Hydrocodone-Acetaminophen Rash Vicodin ??? [place] Itching Review of Systems: Gen: Denies fevers, chills Eyes: Denies change in vision Ears, Nose, Mouth, Throat: Denies change in hearing; denies rhinorrhea, nasal pain; denies dysphagia. Reporting ear pain CV: Denies chest pain, palpitations Resp: Denies SOB GI: Denies abd pain, n/v, constipation, melana, BRBPR. Reporting increased stooling : Denies dysuria, hematuria, urinary frequency, urinary urgency Neuro: Denies focal weakness, LOC. Reporting headache Physical Exam: BP 170/100 Pulse 50 Temp 97.7 ??F (36.5 ??C) (Oral) Resp 14 Ht 5' 5 (1.651 m) Wt 282 lb (127.9 kg)BMI 46.93 kg/m2 Gen: NAD, conversational, pleasant, cooperative Eyes: EOMI; anicteric, non-injected sclerae Ears: TMs intact and pearly mcgee without exudates bilaterally. No erythema. Nose: Turbinates pink and moist Mouth: Moist oral mucous membrane; no lesions or sores appreciated; no tonsillar exudates Lymph: No supraclavicular, submadibular, cervical LAD Neck: Thyroidomegaly CV: Normal S1, S2; RRR; no MRGs appreciated Pulm: CTAB; no wheezes or crackles GI: Abd soft, NT to palpation; no guarding or rebound Neuro: No focal neurologic deficits Psych: AOx3; calm, congruent affect Preventative Care/Health Maintenance: - Cervical cancer screening (Pap q3yr 21-29, Pap+HPV q5yr >/= 30 and <65):Followed by outsideGYN. - CRC screening (50-75): 2015. Due 2020. - Breast ca screening (50-74; mammogram q1-2yrs >50; if 40-50 d/w patient): 05/2019 with outsideGYN. - Breast cancer prevention (tamoxifen if 35-60 and Yulissa 5-yr risk >1.66%): NA - Tobacco use: Never smoker. - Lung ca screening (55-80 if 30-pack-yr current smoker or quit in last 15 yrs): Never smoker. - Osteoporosis screening (65+): Due at age 65. - Lipid screening (>45 unless additional risk factors): 08/2019. - Statin (mod/high intensity if clinical ASCVD, LDL>190, age 40-75 +DM &??LDL 70-189, or 10yr risk >7.5%):??Currently on statin therapy.?? - Diabetes screening (BP>135/80, HLD, obesity):??08/2019=7.8%. - HIV (once, or annually if high risk): Declined at visit 11/19/18. - HepC (once if patient born between 9628-7148): 08/2014. - ASA ppx (>3% 5yr risk): Currently on daily ASA. - Depression screening: PHQ9?? 09/15/2019=0. -Obesity/physical activity/diet counseling: Body mass index is 46.93 kg/m??. - Immunizations ?- Influenza: Due.??Declined at visit 09/15/2019. ?- HPV (<26): NA ?- Prevnar (>65 if PPSV23 naive, or at least 1 year after PPSV23): Due at age 65. ?- Pneumovax (>65 unless risk factors, 6-12mos after Prevnar): Reports she has had in the past. Declined re- vaccination at visit 11/19/18. ?- Tdap/Td ([id number]): 11/19/18. ?- Zoster (>60): Due at age 60. Labs: Personally reviewed. Assessment and Plan: 1. Essential hypertension -BP above goal and with headache, has not taken BP medication today. -Discussed importance of BP control. -Continue lisinopril 40mg daily, carvedilol 25mg BID and start hydralazine, as ordered last visit, but never started. - hydrALAZINE (APRESOLINE) 25 MG tablet; Take 1 tablet by mouth 2 times daily FOR BLOOD PRESSURE Dispense: 60 tablet; Refill: 0 -To schedule with nephrology, as below. -Encouraged to go to the ED with any red flag symptoms. Verbalized understanding. -BP check in 2 weeks. 2. Type 2 diabetes mellitus with complications -Poorly compliant with medications. Discussed risks of poorly controlled DM2. -A1C=7.8%, 08/2019, improving. -Medication: Glipizide 5mg BID. Did not tolerate metformin. Notes she has not been taking glipizideencouraged to take glipizide as prescribed to improve glycemic control. -Statin: Atorvastatin 40mg nightly. -Eye exam: 05/2019-concern for retinopathy. -Foot exam: 11/2018. -Microalbumin/creatinine ratio: Elevated 08/2019-previously seen by nephrology, but never followed up. Encouraged to schedule. 3. Retinopathy -Followed by outside ophthalmology. -Stressed importance of DM2 control. 4. Nephropathy 5. Proteinuria, unspecified type -Encouraged to schedule follow up with nephrology, as she lost contact. -Discussed importance of DM2 and HTN control. 6. Hyperlipidemia, unspecified hyperlipidemia type 7. Class 3 severe obesity with serious comorbidity and body mass index (BMI) of 45.0 to 49.9 in adult, unspecified obesity type -Body mass index is 46.93 kg/m??. Wt Readings from Last 3 Encounters: 09/15/19 282 lb (127.9 kg) 07/14/19 295 lb (133.8 kg) 06/23/19 290 lb (131.5 kg) -Encouraged to follow a heart healthy diet and exercise. -Continue atorvastatin. 8. Enlarged thyroid -Thyroid level WDL 08/2019. US ordered but not completed, to schedule. 9. Pericardial cyst -Seen on outside imaging but not noted on ECHO 06/2019. -Discussed with cardiology who recommended yearly ECHOs x 2 and then every 5 years if stable.??Usually benign if not enlarging??per Dr. Saldana. -Repeat ECHO due 12/2019. 10. Microcytosis -Improving with iron supplement. -?Related to kidneys and proteinuria. -Continue daily iron. 11. History of TIA (transient ischemic attack) -Continue statin and ASA therapy. Can trial different brand of ASA, as she thinks current is causing increased BMs. -To go to the ED with any CVA-like symptoms. Verbalized understanding. 12. Healthcare maintenance -As above. Patient to RTC in 10-14 days for BP check and routine visit in 4 months-per patient request due to insurance coverage. Call with any questions or concerns in the interim. GIANNA Fritz TECHNICIAN documented in this encounter Plan of Treatment Upcoming Encounters Date Type Department Care Team (Late st Contact Info) Description 12/15/2024 1:00 PM CDT Office Visit [facility] - Internal Med [address] [facility], [place] [address] Neil Velasquez MD [address] [facility] [place] [address] documented as of this encounter Visit Diagnoses Diagnosis Essential hypertension- Primary 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) Type II or unspecified type diabetes mellitus with unspecified complication, not stated as uncontrolled Retinopathy Background retinopathy, unspecified Nephropathy Nephritis and nephropathy, not specified as acute or chronic, with unspecified pathological lesion in kidney Proteinuria, unspecified type Hyperlipidemia, unspecified hyperlipidemia type Class 3 severe obesity with serious comorbidity and body mass index (BMI) of 45.0 to 49.9 in adult, unspecified obesity type (HCC) Enlarged thyroid Goiter, unspecified Pericardial cyst (HCC) Other specified congenital anomaly of heart Microcytosis Other abnormality of red blood cells History of TIA (transient ischemic attack) Transient ischemic attack (TIA), and cerebral infarction without residual deficits Healthcare maintenance Routine general medical examination at a health care facility documented in this encounter
--- OUTSIDE RECORDS SUMMARY | 2024-08-02 10:01 | XMS_ITS | Encounter Summary ---
Author Organization [facility] Address [address] [place] [address] Care Team Providers Care Amphibious Operations Officer Name Role Phone Unavailable Primary Care Provider Unavailabl e Reason for Visit * Reason Comments Hypertension Patient A&O x 4 and reports being at doctors office earlier today and was told to come to ED for worsening HTN. Patient denies headache or any noticing any abnormalities. Encounter Details Date Type Department Care Team (Late st Contact Info) Description 05/05/2020 3:24 PM CDT - 05/05/2020 8:[address] [facility] EMERGENCY DEPARTMENT [address] [place] [id number] Julee Norwood MD [address] [place] [address] OF [place] [address] Andrew Frazier MD [address] [place] [address] [place] [id number] Elevated blood pressure reading; Essential hypertension Discharge Disposition: Home or Self Care Social [...] Reading Time Taken Comments Blood Pressure 176/82 05/05/2020 8:08 PM CDT Pulse 68 05/05/2020 8:08 PM CDT Temperature 36.8 ??C (98.2 ??F) 05/05/2020 7:27 PM CD T Respiratory Rate 18 05/05/2020 6:19 PM CDT Oxygen Saturation 99% 05/05/2020 7:27 PM CDT Inhaled Oxygen Concentration - - Weight 127.9 kg (282 lb) 05/05/2020 1:36 PM CDT Height 167.6 cm (5' 6 ) 05/05/2020 1:36 PM CDT Body Mass Index 45.52 05/05/2020 1:36 PM CDT documented in this encounter Discharge Instructions * Discharge Instructions* Cheyenne Ann MD - 05/05/2020 8:07 PM CDT Use a good rx card and fill your prescriptions at [facility] for cheaper prices. * Attachments The following attachments cannot be sent through Care Everywhere. * Hypertension (AfterCare(R) Instructions(ER/ED)) (Emirati) * Chronic Hypertension (AfterCare(R) Instructions(ER/ED)) (Emirati) documented in this encounter Medications at Time of Discharge Medication Sig Dispensed Refills Start Date End Date aspirin (ASPIRIN) 81 MG tablet 100 tablet 04/06/2016 Glucose Blood (BLOOD GLUCOSE TEST STRIPS) STRP Use 1 strip TID. 100 strip 11 07/03/2017 LANCETS SUPER THIN 28G MISC Use TID. 100 11 03/13/2017 atorvastatin (LIPITOR) 40 MG tabletIndications:Type 2 diabetes mellitus with complication, without long-term current use of insulin (HCC),Hyperlipidemia, unspecified hyperlipidemia type Take 1 tablet by mouth at bedtime 90 tablet 02/11/2020 05/12/2020 Blood Glucose Monitoring Suppl (ACCU-CHEK GUIDE) w/Device KIT 12/17/2018 03/14/2023 carvedilol (COREG) 25 MG tabletIndications:Essent ial hypertension Take 1 tablet by mouth 2 times daily with morning and evening meal for 30 days 60 tablet 05/05/2020 06/04/2020 ferrous sulfate 325 (65 FE) MG tabletIndications:Iron deficiency anemia, unspecified iron deficiency anemia type Take 1 tablet by mouth 2 times daily with morning and evening meal 60 tablet 4 07/29/2019 01/05/2021 glipiZIDE (GLUCOTROL) 5 MG tabletIndications: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) Take 1 tablet by mouth 2 times daily, before breakfast and supper 180 tablet 2 12/12/2019 12/29/2020 hydrALAZINE (APRESOLINE) 25 MG tabletIndications:Essent ial hypertension Take 2 tablets by mouth 2 times daily for 30 days FOR BLOOD PRESSURE 120 tablet 05/05/2020 05/12/2020 lisinopril (PRINIVIL; ZESTRIL) 40 MG tabletIndications:Essent ial hypertension Take 1 tablet by mouth once daily for 30 days 30 tablet 05/05/2020 06/04/2020 documented as of this encounter ED Notes * Karol Emanuel RN - 05/05/2020 8:49 PM CDT Discharge instructions and medications reviewed with patient, pt seen by social and political studies professor and given prescription vouchers . Patient verbalized understanding and ambulated on own to exit, gait steady. * Andrew Frazier MD - 05/05/2020 8:13 PM CDT ASSUMED CARE NOTE Patient signed out to me by Dr. Norwood at 7:13 PM. Briefly, Mauricio Larios is a 55 year old female is being evaluated for HTN with a blood pressure reading of 218/106 at her doctor's office today. Pt states she is noncompliant with her medications d/t side effects and financial barriers. She initially reports ABD pain, which she states islikely related to stress from her job, now resolved. At this time the patient's condition is Good. Thus far, studies reveal most recent BP 176/82. BMP wnl. Pending studies include EKG Plan is dispo pending EKG. ED Course: 8:20 PM: EKG interpreted by me: Date: 05/05/2020 Time: 8:17 PM R&R: normal sinus rhythm with ventricular rate of 65 bpm. Additional Findings: T wave flattening in V1 V2 non specific ST changes v4-v6 lead I and aVL no ST elevation which is unchanged from EKG performed on 05/30/2019 8:25 PM : Upon reassessment pt's symptoms improved. Pt's BP stable. Will discharge with prescriptions for coreg, apresoline, and lisinopril. Expressed importance of compliance with medications. Provided pt with good rx card for cheaper prescriptions after pt expressed financial barriers with prescription refills. 8:46 PM: I have reviewed her diagnostic findings and she has had an opportunity to ask me any questions she has about care, diagnosis and discharge plan. Patient is comfortable with the discharge plan. She will follow up as directed and will return to the ER if her condition worsens or she developsother urgent concerns. Patient Vitals for the past 6 hrs: Temp Pulse Resp BP BP Method 05/05/202007 -- 68 -- 176/82 Manual 05/05/20 1927 98.2 ??F (36.8 ??C) 54 -- (!) 184/94 Manual 05/05/20 1819 -- 52 18 (!) 182/98 Manual 05/05/20 1700 -- 61 11 -- -- 05/05/20 1627 -- -- -- 172/98 Manual 05/05/20 1600 98 ??F (36.7 ??C) 53 18 -- Automatic Clinical Impression: 1. Elevated blood pressure reading 2. Essential hypertension Disposition: Discharge By signing my name below, I, Mauricio Jose, attest that this documentation has been prepared under the direction and in the presence of Dr. Frazier. Signed: Gabrielle Bowser. Date: 05/05/2020. Time:8:13 PM. I, Dr. Frazier, personally performed the services described in this documentation. All medical record entries made by the dignaibe were at my direction and in my presence. I have reviewed the chart and agree that the record reflects my personal performance and is accurate and complete. * Damian Diaz RN - 05/05/2020 7:18 PM CDT Patient report given to LAST [facility]. Answered all questions, no concerns from nurse. Will turnovercare at this time. * Damian Diaz RN - 05/05/2020 6:00 PM CDT Pt ambulated to bathroom with steady gait, pt placed in inpatient hospital bed, monitoring equipment put back in place. ABCs intact. Denies further needs at this time. * Damian Diaz RN - 05/05/2020 5:00 PM CDT Pt resting comfortably in bed with equal and unlabored chest rising and fall, monitoring equipment remains in place, ABCs intact. Call light within reach. Denies further needs at this time. * Imelda Cordon - 05/05/2020 4:45 PM CDT Pt ambulated to and from bathroom then returned to room call light within reach * Julee Norwood MD - 05/05/2020 4:08 PM CDT ED Attending Note Interval History: Mauricio Larios is a 55 year old female with medical h/o HTN, DM, TIA is presenting to theED c/o high blood pressure reading of 218/106 while at physician's office earlier today. Endorses associated sx mild headache rated 1/10 on numeric pain scale, and brief RUQ abdominal pain which has since subsided. Denies vision changes, other headaches, dizziness, CP, SOB, and all other sx. Patient has not taken medication for headache. She states that she has only taken 1 of her 3 HTN medications, Carvedilol, this morning. She discontinued use of Hydralazine several months ago because she wasunable to afford prescription. States she takes her Lisinopril as needed, but that she does not check BP at home. Notes that when in doctors' offices her BP is usually 150/90's. Reports similar episode approximately 1 year ago; she was evaluated in ED, given medications and discharged. Notes allergies to Vicodin and strawberries. Past Medical History: Diagnosis Date ??? Hypertension ??? Nephropathy ??? Pericardial cyst ??? Type 2 diabetes mellitus Past Surgical History: Procedure Laterality Date ??? Section x2 ??? Cholecystectomy ??? Hernia Repair Social History Socioeconomic History ??? Marital status: Spouse name: Not on file ??? Number of children: 2 ??? Years of education: Not on file ??? Highest education level: Not on file Occupational History ??? Not on file Social Needs ??? Financial resource strain: Not on file ??? Food insecurity Worry: Not on file Inability: Not on file ??? Transportation needs Medical: Not on file Non-medical: Not on file Tobacco Use ??? Smoking status: Never Smoker ??? Smokeless tobacco: Never Used Substance and Sexual Activity ??? Alcohol use: Yes Alcohol/week: 1.0 standard drinks Comment: socially ??? Drug use: No ??? Sexual activity: Not on file Lifestyle ??? Physical activity Days per week: Not on file Minutes per session: Not on file ??? Stress: Not on file Relationships ??? Social connections Talks on phone: Not on file Gets together: Not on file Attends restoration service: Not on file Active member of club or organization: Not on file Attends meetings of clubs or organizations: Not on file Relationship status: Not on file ??? Intimate partner violence Fear of current or ex partner: Not on file Emotionally abused: Not on file Physically abused: Not on file Forced sexual activity: Not on file Other Topics Concern ??? Not on file Social History Narrative 2 adult children, 30 and 34. . Stays at home. Review of Systems: (+) positive All systems negative except as marked. Constitutional: Negative for fever HENT: Negative for sore throat. Eyes: Negative for visual changes Respiratory: Negative for SOB, cough Cardiovascular: Negative for chest pain, palpitations Gastrointestinal: Negative for nausea, vomiting, diarrhea; positive for RUQ abdominal pain, Genitourinary: Negative for difficulty urinating, hematuria, dysuria Musculoskeletal: Negative for neck pain, back pain, myalgia Skin: Negative for rash, itching Neurological: Positive for BUTT dizziness, weakness, numbness, tingling Psychiatric: Negative for SI, hallucinations, anxiety Vitals: 05/05/20 1600 05/05/20 1627 05/05/20 1700 05/05/20 1819 BP: (S) 172/98 (S) (!) 182/98 Pulse: 53 61 52 Resp: 18 11 18 Temp: 98 ??F (36.7 ??C) SpO2: 99% 100% 99% Weight: Height: Exam: Constitutional: well developed, no acute distress. Morbidly Obese. HENT: normocephalic, atraumatic, moist oral mucosa, conjunctiva normal Eyes: PERRL, EOMi Neck: supple, normal ROM Cardiovascular: regular rate and rhythm, no murmur Respiratory: clear to auscultation bilaterally, no wheezes, no respiratory distress Abdomen: soft, non-tender, non-distended Musculoskeletal: no edema or deformities Skin: warm, dry, no lesions Neurological: awake, alert&Ox4, moving all extremities, no focal motor/sensation deficits. Psychiatric: mood and affect normal Medical Decision Makin. Uncontrolled HTN sent from clinic Assessment/Plan: Check BMP, trial of home BP meds Results: Labs Reviewed BASIC METABOLIC PANEL (CALCIUM TOTAL) - Abnormal; Notable for the following components: Result Value CO2 30 (*) Glucose 135 (*) All other components within normal limits No orders to display ED course: The patient's Oxygen Saturation Monitor was interpreted by me. The reading was 99%. The patient wason RA at the time of the reading. This is interpreted as normal. 2:08 PM- Initial BP 218/101. 4:30 PM- Repeat BP 172/98 6:19 PM- Repeat BP 182/98 7:05 PM- Signed out to Dr. Frazier, pending BMP and BP control Consult No Procedure done at this time No Ultrasound done at this time No CRITICAL CARE IN THE ED No Orders and Medicine administered during this encounter: Orders Placed This Encounter ??? BASIC METABOLIC PANEL (CALCIUM TOTAL) Medications - No data to display Clinical Impression: Hypertension Disposition: Pending- signed out to Dr. Frazier By signing my name below, I, David Janie, attest that this documentation has been prepared under the direction and in the presence of Dr. Norwood. Signed: Gabrielle Vickers By signing my name below, I, Elinor Vargas, attest that this documentation has been prepared underthe direction and in the presence of Dr. Norwood. Signed: Gabrielle Brower. I, Dr. Norwood, personally performed the services described in this documentation. All medical record entries made by the scribe were at my direction and in my presence. I have reviewed the chart and agree that the record reflects my personal performance and is accurate and complete. * Damian Diaz RN - 05/05/2020 3:34 PM CDT Received report from LAST Catherine. Assumed care of patient at this time. documented in this encounter Plan of Treatment Upcoming Encounters Date Type Department Care Team (Late st Contact Info) Description 12/15/2024 1:00 PM CDT Office Visit [facility] - Internal Med [address] [facility] [place] [address] Neil Velasquez MD [address] [facility] [place] [address] documented as of this encounter Procedures Procedure Name Priority Date/Time Associated Diagnosis Comments CARDIAC EKG ORDER 05/10/2020 9:0 6 PM CDT EKG 12-LEAD Routine 05/05/2020 8:17 PM CDT Elevated blood pressure reading BASIC METABOLIC PANEL (CALCIUM TOTAL) STAT 05/05/2020 4:19 PM CDT documented in this encounter Results * CARDIAC EKG ORDER (05/10/2020 9:06 PM CDT) Narrative 05/10/2020 9:06 PM CDT Ordered by an unspecified provider. Scanned Document CARDIAC SERVICES ORD ERABLES * EKG 12-LEAD (05/05/2020 8:17 PM CDT) Ventricular Rate [address] [facility] M[facility] Atrial Rate [address] [facility] P-R Interval [address] [facility] QRS Duration ms [address] [facility] Q-T Interval ms [address] [facility] QTC Calculation (Bezet) [address] [facility] Calculated P [place] 50 degrees SL MUSE Calculated R [place] [address] [facility] M[facility] Calculated T [place] [address] [facility] M[facility] Interpretation EKG NORMAL SINUS RHYTHM POSSIBLE LEFT ATRIAL ENLARGEMENT LEFT VENTRICULAR HYPERTROPHY WITH STRAIN PATTERN ABNORMAL ECG WHEN COMPARED WITH ECG OF 30-May-2019, 18:11:09 LEFT VENTRICULAR HYPERTROPHY WITH STRAIN PATTERN IS NOW PRESENT Confirmed by fellow Willy Skinner ([id number]) on 05/06/2020 11:20:56 AM Confirmed by Moisés Ferguson ([id number]) on 06/01/2020 11:48:[address] [facility] 05/05/2020 8:17 PM CDT 06/01/2020 11:48 AM CDT Julee Norwood MD ECG ORDERABLES [facility] * (ABNORMAL) BASIC METABOLIC PANEL (CALCIUM TOTAL) (05/05/2020 4:19 PM CDT) BUN 11 7 - 26 mg/dL 05/05/2020 6:[address] [facility] Creatinine 0.8 0.6 - 1.2 mg/dL 05/05/2020 6:[address] [facility] Sodium 140 136 - 145 mmol/L 05/05/2020 6:[address] [facility] Potassium 3.9 3.5 - 4.5 mmol/L 05/05/2020 6:[address] [facility] Chloride 103 98 - 107 mmol/L 05/05/2020 6:[address] [facility] CO2 30(H) 22 - 29 mmol/L 05/05/2020 6:[address] [facility] Glucose 135(H) 70 - 115 mg/dL 05/05/2020 6:[address] [facility] Calcium 9.1 8.4 - 10.2 mg/dL 05/05/2020 6:[address] [facility] Anion Gap 11 8 - 18 05/05/2020 6:32 PM CDT [facility] BUN/Creatinine Ratio 14 7 - 23 05/05/2020 6:[address] [facility] Osmolality Calculated 291 270 - 300 mOsm/kg 05/05/2020 6:[address] [facility] eGFR >60 >60 mL/min/1.7 3 m2 05/05/2020 6:[address] [facility] Blood BLOOD SPECIMEN / Unknown Venipuncture / Unknown 05/05/2020 4:19 PM CDT 05/05/2020 4:26 PM CDT Cheyenne Ann MD LAB - CHEMISTRY OR DERABLES [facility] [address] [place] [address], [facility] [phone] documented in this encounter Visit Diagnoses Diagnosis Elevated blood pressure reading Elevated blood pressure reading without diagnosis of hypertension Essential hypertension Essential (primary) hypertension Unspecified essential hypertension documented in this encounter Administered Medications Inactive Administered Medications - up to 3 most recent administrations Medication Order MAR Action Action Date Dose Rate Site carvedilol (COREG) tablet 25 mg 25 mg, Oral, NOW, 1 dose, On Sun05/05/20 at 1845, Take with food $ Given 05/05/2020 7:29 PM CDT 25 mg hydrALAZINE (APRESOLINE) tablet 50 mg 50 mg, Oral, NOW, 1 dose, On Sun05/05/20 at 1845 $ Given 05/05/2020 7:29 PM CDT 50 mg lisinopril (PRINIVIL; ZESTRIL) tablet 40 mg 40 mg, Oral, NOW, 1 dose, On Sun05/05/20 at 1845 $ Given 05/05/2020 7:29 PM CDT 40 mg documented in this encounter Active and Recently Administered Medications Times are shown in CDT. Scheduled Medication Order 05/03/2020 05/04/2020 05/05/2020 carvedilol (COREG) tablet 25 mg (COMPLETED) 25 mg, Oral, NOW, 1 dose, On Sun05/05/20 at 1845, Take with food 1928 ($ Given - Prov ider: Karol Emanuel RN) hydrALAZINE (APRESOLINE) tablet 50 mg (COMPLETED) 50 mg, Oral, NOW, 1 dose, On Sun05/05/20 at 1845 1929 ($ Given - Prov ider: Karol Emanuel RN) lisinopril (PRINIVIL; ZESTRIL) tablet 40 mg (COMPLETED) 40 mg, Oral, NOW, 1 dose, On Sun05/05/20 at 1845 192 ($ Given - Prov ider: Karol Emanuel RN) documented in this encounter
--- OUTSIDE RECORDS SUMMARY | 2024-08-02 10:01 | XMS_ITS | Encounter Summary ---
Author Organization [facility] [place] Address [address] [facility] [place] [address] Care Team Providers Care Shore Man Name Role Phone Unavailable Primary Care Provider Unavailabl e Reason for Visit * Auth/Cert Specialty Diagnoses / Procedures Referred By Jimmy schaeffer Referred To Contact Diagnoses Screen for colon cancer Screen for colon cancer [Z12.11] Procedures LA COLONOSCOPY,DIAGNOSTIC LA COLONOSCOPY,BIOPSY [place] CANC SCRN,SCR COLONOSCOPY+BE [place] CANC SCRN,SCOPY NOT HI RISK [place] CANC SCRN,COLONOSCPY HI RISK COLONOSCOPY SCREEN Referral ID Status Reason Start Date Expiration Date Visits Re quested Visits Authorized [id number] 1 1 Encounter Details Date Type Department Care Team (Late st Contact Info) Description 12/08/2020 3:13 PM CDT - 12/08/2020 3:58 PM CDT Surgery [facility] ENDOSCOPY [address] [place] [phone] Sara Haddad MD [facility] 3 [place] [address] COLONOSCOPY Surgery Details Date/Time Status Location OR Service Patient Class Case Class Case Type Trauma Case? 12/08/2020 3:13 PM Posted [facility] Endoscopy ENDO 4 Gastroenterology Surgery Day Care Panel 1 Procedure LRB Anes Op Region Wound Class Comments COLONOSCOPY N/A MAC NA normal colon external hemorrhoids Surgeon Surgeon Role Service Panel Sara Haddad MD Primary Gastroenterology 1 documented in this encounter Social History Tobacco [...] AM CDT documented as of this encounter Last Filed Vital Signs Vital Sign Reading Time Taken Comments Blood Pressure 193/81 12/08/2020 2:30 PM CDT Pulse 57 12/08/2020 2:30 PM CDT Temperature 36.3 ??C (97.4 ??F) 12/08/2020 2:07 PM CD T Respiratory Rate 24 12/08/2020 2:30 PM CDT Oxygen Saturation 97% 12/08/2020 2:30 PM CDT Inhaled Oxygen Concentration - - Weight 127 kg (280 lb) 12/08/2020 2:07 PM CDT Height 167.6 cm (5' 6 ) 12/08/2020 2:07 PM CDT Body Mass Index 45.19 12/08/2020 2:07 PM CDT documented in this encounter Discharge Instructions * Discharge Instructions* Hannah Lee RN - 12/08/2020 4:14 PM CDT Images from the original note were not included. Patient Education Colonoscopy WHAT YOU NEED TO KNOW: A colonoscopy is a procedure to examine the inside of your colon (intestine) with a scope. Polyps or tissue growths may have been removed during your colonoscopy. It is normal to feel bloated and to have some abdominal discomfort. You should be passing gas. If you have hemorrhoids or you had polypsremoved, you may have a small amount of bleeding. DISCHARGE INSTRUCTIONS: Call your doctor if: ?? You have a large amount of bright red blood in your bowel movements. ?? Your abdomen is hard and firm and you have severe pain. ?? You have sudden trouble breathing. ?? You develop a rash or hives. ?? You have a fever within 24 hours of your procedure. ?? You have not had a bowel movement for 3 days after your procedure. ?? You have questions or concerns about your condition or care. After your colonoscopy: ?? Do not lift, strain, or run for 3 days. ?? Rest as much as possible. You have been given medicine to relax you. Do not drive or make important decisions for at least 24 hours. Return to your normal activity as directed. ?? Relieve gas and discomfort from bloating by lying on your left side with a heating pad on your abdomen. You may need to take short walks to help the gas move out. Eat small meals until bloating isrelieved. If you had polyps removed: For 7 days after your procedure: ?? Do not take aspirin. ?? Do not go on long car rides. Help prevent constipation: ?? Eat a variety of healthy foods. Healthy foods include fruit, vegetables, whole-grain breads, low-fat dairy products, beans, lean meat, and fish. Ask if you need to be on a special diet. Your healthcare provider may recommend that you eat high-fiber foods such as cooked beans. Fiber helps you have regular bowel movements. ?? Drink liquids as directed. Adults should drink between 9 and 13 eight-ounce cups of liquid everyday. Ask what amount is best for you. For most people, good liquids to drink are water, juice, and milk. ?? Exercise as directed. Talk to your healthcare provider about the best exercise plan for you. Exercise can help prevent constipation, decrease your blood pressure and improve your health. Follow up with your healthcare provider as directed: Write down your questions so you remember to ask them during your visits. ?? Copyright [employer] 2020 Information is for End User's use only and may not be sold, redistributed or otherwise used for commercial purposes. All illustrations and images included in CareNotes?? are the copyrighted property of [employer].D.A[employer] Inc. or [employer] The above information is an tailor's aide only. It is not intended as medical advice for individual conditions or treatments. Talk to your doctor, nurse or pharmacist before following any medical regimen to see if it is safe and effective for you. documented in this encounter Medications at Time of Discharge Medication Sig Dispensed Refills Start Date End Date Ascorbic Acid (ALPHONSE-C PO) aspirin (ASPIRIN) 81 MG tablet 100 tablet 04/06/2016 Glucose Blood (BLOOD GLUCOSE TEST STRIPS) STRP Use 1 strip TID. 100 strip 11 07/03/2017 LANCETS SUPER THIN 28G MISC Use TID. 100 11 03/13/2017 VITAMIN D PO atorvastatin (LIPITOR) 40 MG tabletIndications:Hyperl ipidemia, unspecified hyperlipidemia type Take 1 (one) tablet by mouth at bedtime 90 tablet 1 08/30/2020 11/16/2021 bisacodyl EC (DULCOLAX) 5 MG tablet Take all 4 tablets at noon the day before your colonoscopy. 4 tablet 11/29/2020 05/21/2023 Blood Glucose Monitoring Suppl (ACCU-CHEK GUIDE) w/Device KIT 12/17/2018 03/14/2023 carvedilol (COREG) 25 MG tablet Take 1 (one) tablet by mouth 2 times daily with morning and evening meal 60 tablet 1 10/26/2020 12/20/2020 ferrous sulfate 325 (65 FE) MG tabletIndications:Iron deficiency anemia, unspecified iron deficiency anemia type Take 1 tablet by mouth 2 times daily with morning and evening meal 60 tablet 4 07/29/2019 01/05/2021 gabapentin (NEURONTIN) 100 MG capsule Take 1 (one) capsule by mouth 3 times daily 90 capsule 4 10/06/2020 04/06/2021 glipiZIDE (GLUCOTROL) 5 MG tabletIndications: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 Drink 1/2 of mixture at 5pm the night before colonoscopy, 1/2 at 4am the day of colonoscopy. 238 g 11/29/2020 03/14/2023 documented as of this encounter H&P Notes * Jose Munoz MD - 12/08/2020 3:17 PM CDT PRE-PROCEDURE HISTORY & PHYSICAL NOTE 12/08/2020 3:18 PM Patient: Mauricio Flores, date of 1965 Procedure(s) planned: Colonoscopy Indication(s): Family history colon cancer History: Patient is a 55 year old black female presenting for colonoscopy for family history off colon cancer (father and mother) Patient Active Problem List Diagnosis Date Noted [...] circulatory system 09/19/2014 ??? Essential hypertension 08/31/2014 Past Medical History: Diagnosis Date ??? Hypertension ??? Nephropathy ??? Pericardial cyst ??? TIA (transient ischemic attack) ??? Type 2 diabetes mellitus Family History Problem Relation Name Age of Onset ??? Diabetes Mother ??? Diabetes Maternal Grandmother ??? Diabetes Paternal Grandmother ??? Cancer Maternal Grandfather ??? Cancer Father ??? Hypertension Sister Past Surgical History: Procedure Laterality Date ??? Section x2 ??? Cholecystectomy ??? Hernia Repair Social History Socioeconomic History ??? Marital status: Spouse name: Not on file ??? Number of children: 2 ??? Years of education: Not on file ??? Highest education level: Not on file Occupational History ??? Not on file Tobacco Use ??? Smoking status: Never Smoker ??? Smokeless tobacco: Never Used Vaping Use ??? Vaping Use: Never used Substance and Sexual Activity ??? Alcohol use: Yes Alcohol/week: 1.0 standard drinks Comment: socially ??? Drug use: No ??? Sexual activity: Not on file Other Topics Concern ??? Not on file Social History Narrative 2 adult children, 30 and 34. . Stays at home. Social Determinants of Health Financial Resource Strain: ??? Difficulty of Paying Living Expenses: Food Insecurity: ??? Worried About Running Out of Food in the Last Year: ??? Ran Out of Food in the Last Year: Transportation Needs: ??? Lack of Transportation (Medical): ??? Lack of Transportation (Non-Medical): Physical Activity: ??? Days of Exercise per Week: ??? Minutes of Exercise per Session: Stress: ??? Feeling of Stress : Social Connections: ??? Frequency of Communication with Friends and Family: ??? Frequency of Social Gatherings with Friends and Family: ??? Attends Spiritism Services: ??? Active Member of Clubs or Organizations: ??? Attends Club or Organization Meetings: ??? Marital Status: Intimate Partner Violence: ??? Fear of Current or Ex-Partner: ??? Emotionally Abused: ??? Physically Abused: ??? Sexually Abused: Allergies Allergen Reactions ??? Hydrocodone-Acetaminophen Rash Vicodin ??? [place] Itching No current facility-administered medications on file prior to encounter. Current Outpatient Medications on File Prior to Encounter Medication Sig Dispense Refill ??? aspirin (ASPIRIN) 81 MG tablet 100 tablet ??? Blood Glucose Monitoring Suppl (ACCU-CHEK GUIDE) w/Device KIT ??? ferrous sulfate 325 (65 FE) MG tablet Take 1 tablet by mouth 2 times daily with morning and evening meal 60 tablet 4 ??? glipiZIDE (GLUCOTROL) 5 MG tablet Take 1 tablet by mouth 2 times daily, before breakfast and supper 180 tablet 2 ??? Glucose Blood (BLOOD GLUCOSE TEST STRIPS) STRP Use 1 strip TID. (Patient not taking: Reported on 06/07/2020) 100 strip 11 ??? LANCETS SUPER THIN 28G MISC Use TID. (Patient not taking: Reported on 06/07/2020) 100 11 Current Facility-Administered Medications Medication ??? 0.9% NaCl infusion ??? 0.9% NaCl injection 3 mL Review of systems: Constitutional: negative for fevers, chills, fatigue and malaise, no recent weight loss Respiratory: denies shortness of breath Cardiovascular: denies chest pain Gastrointestinal: negative for nausea, vomiting, diarrhea, abdominal pain Physical Exam: BP 193/81 Pulse 57 Temp 97.4 ??F (36.3 ??C) (Tympanic) Resp 24 Ht 1.676 m (5' 6 ) Wt 127 kg (280 lb) SpO2 97% BMI 45.19 kg/m2 General appearance: alert, oriented, pleasant, in NAD Skin: Skin color, texture, turgor normal, no rashes, no spider angiomas Eyes: Anicteric sclera Lungs: CTAB, no wheezing or rhonchi Heart: RRR Abdomen: Soft, non-tender, non distended. Bowel sounds normal. No masses, organomegaly Extremities: No LE edema, or skin discoloration. Good capillary refill. Mallampati: 3 ASA score: 3 Lab Results Component Value Date/Time HGB 13.0 05/13/2020 12:32 PM PLT 356 09/04/2014 09:30 AM CREATININE 0.8 05/05/2020 04:19 PM CREATININE 0.99 06/04/2019 09:31 AM Sedation Plan: Monitored Anesthesia Care (MAC) by the anesthesia team. Procedure Plan: Based on the above assessment, we will perform the procedures indicated above. I have discussed the plan, risks, benefits and alternatives with the patient or guardian. When assessment above was not obtained immediately before the procedure, I have reassessed this patient and there are no changes. In addition to the standard procedural informed consent, the specific risks related to COVID-19 were also discussed, including the possibility of an infection being present with a negative test, the risk of armand COVID-19, and the known implications of this infection. See consent form. Jose Munoz MD PGY-4, Gastroenterology & Hepatology [facility] Pager: [phone] documented in this encounter Plan of Treatment Upcoming Encounters Date Type Department Care Team (Reva Contact Info) Description 12/15/2024 1:00 PM CDT Office Visit [facility] - Internal Med [address] [facility] [place] [address] Neil Velasquez MD [address] [facility] [place] [address] Scheduled Orders Name Type Priority Associated Diagnoses Orde r Schedule ENDOSCOPY, COLON, DIAGNOSTIC GI Routine ONCE for 1 Occur rences starting 12/07/2020 until 12/07/2020 documented as of this encounter Procedures Procedure Name Priority Date/Time Associated Diagnosis Comments COLONOSCOPY SCREEN 12/08/2020 3: 37 PM CDT Screen for colon cancer GLUCOSE - POINT OF CARE Routine 12/08/2020 2:52 PM CDT ENDOSCOPY, COLON, SCREENING Routine 12/08/2020 2:44 PM CDT HCG URINE QUAL POCT NOTIFICATION STAT 12/08/2020 1:53 PM CDT Pre-op evaluation documented in this encounter Results * GLUCOSE - POINT OF CARE (12/08/2020 2:52 PM CDT) Glucose WB/POC 107 70 - 115 mg/dL 12/08/2020 2:54 PM CDT [facility] Specimen Type Arterial/C apillary 12/08/2020 2:54 PM CDT [facility] Blood BLOOD SPECIMEN / Unknown 12/08/2020 2:52 PM CDT 12/08/2020 2:54 PM CDT Sara Haddad MD LAB - POINT OF CA RE ORDERABLES [facility] [address] [place] [address], [facility] [phone] * ENDOSCOPY, COLON, SCREENING (12/08/2020 2:44 PM CDT) Report Endoscopy POC Endoscopy Department Report _ Patient Name: Mauricio Flores Procedure Date: 12/08/2020 2:44 PM ? Date of : 1965 Classification: Outpatient ?Gender: Female Ethnicity: Not or ? Race: Black or _ Providers: ?Sara Ramsey MD Referring : ? [facility] Internal Medicine Clinic Procedure: ?Colonoscopy Indications: [...] Residual hemorrhoidal skin tags CPT copyright 2019 [employer]. All rights reserved. The codes documented in this report are preliminary and upon veterinarian poultry review may be revised to meet current compliance requirements. Sara Ramsey MD 12/08/2020 4:01:43 PM Note Initiated On: 12/08/2020 2:44 PM Number of Addenda: 0 ? [facility] ? [address] [place] [address] [facility] 12/08/2020 2:44 PM CDT Sara Haddad MD GI PROCEDURE ORDE RABLES Performing Organization Address [facility] Co de Phone Number [facility] * HCG URINE QUAL POCT NOTIFICATION (12/08/2020 1:53 PM CDT) Comment Notification Label Only - See Separate Report 12/08/2020 3:00 PM CDT [facility] Urine URINE / Unknown 12/08/2020 1 :53 PM CDT 12/08/2020 1:53 PM CDT Sara Haddad MD LAB - URINALYSIS ORDERABLES Performing Organization Address [facility] Co de Phone Number [address] [address], [facility] [phone] documented in this encounter Visit Diagnoses Diagnosis Pre-op evaluation- Primary Preoperative examination, unspecified Screen for colon cancer Special screening for malignant neoplasms, colon documented in this encounter Administered Medications Inactive Administered Medications - up to 3 most recent administrations Medication Order MAR Action Action Date Dose Rate Site 0.9% NaCl infusion at 20 mL/hr, Intravenous, CONTINUOUS, Starting on Sun12/08/20 at 1445, Until Sun12/08/20 at 1750, Pre-procedure (GI) 0.9% NaCl injection 3 mL 3 mL, Intracatheter, PRE-PROCEDURE MULTIPLE, Starting on Sun12/08/20 at 1432, Until Sun12/08/20 at 1750, For Saline Lock flushes if one is inserted for Bronchoscopy/Endoscopy procedure., Pre-procedure (GI) documented in this encounter Active and Recently Administered Medications Times are shown in CDT. Scheduled Medication Order 12/06/2020 12/07/2020 12/08/2020 0.9% NaCl injection 3 mL 3 mL, Intracatheter, PRE-PROCEDURE MULTIPLE, Starting on Sun12/08/20 at 1432, Until Sun12/08/20 at 1750, For Saline Lock flushes if one is inserted for Bronchoscopy/Endoscopy procedure., Pre-procedure (GI) Continuous Medication Order 12/06/2020 12/07/2020 12/08/2020 0.9% NaCl infusion at 20 mL/hr, Intravenous, CONTINUOUS, Starting on Sun12/08/20 at 1445, Until Sun12/08/20 at 1750, Pre-procedure (GI) 1445 (Due) documented in this encounter
--- OUTSIDE RECORDS SUMMARY | 2024-08-02 10:01 | XMS_ITS | Encounter Summary ---
Author Organization [facility] Address [address] [facility] [address] Care Team Providers Care Master Control Engineer Name Role Phone Unavailable Primary Care Provider Unavailabl e Reason for Referral * Radiology Services (Routine) - Closed Specialty Diagnoses / Procedures Referred By Jimmy schaeffer Referred To Contact Ultrasound Diagnoses Enlarged thyroid Procedures US THYROID Catherine Salmeron APRN-CNP [address] [place] [address] [address] Referral ID Status Reason Start Date Expiration Date Visits Re quested Visits Authorized [id number] Closed 07/14/2019 01/10/2020 1 1 EL POWERPLANT MECHANIC Reason for Visit * Radiology Services (Routine) - Closed Specialty Diagnoses / Procedures Referred By Jimmy schaeffer Referred To Contact Ultrasound Diagnoses Enlarged thyroid Procedures US THYROID Catherine Salmeron APRN-CNP [address] [place] [address] [facility] [address] [place] [address] Referral ID Status Reason Start Date Expiration Date Visits Re quested Visits Authorized [id number] Closed 07/14/2019 01/10/2020 1 1 Encounter Details Date Type Department Care Team (Latest Contact Info) Description 09/25/2019 12:35 PM DIESEL POWERPLANT MECHANIC - 09/25/2019 11:59 PM DIESEL POWERPLANT MECHANIC Hospital Encounter [facility] [address] [place] [address] Catherine Salmeron, DRY KILN FEEDER-LACE WEAVER [address] [facility] [address] OF [facility] [place] [address] Discharge Disposition: Home or Self Care Social [...] by mouth at bedtime 90 tablet 1 08/22/2019 02/11/2020 Blood Glucose Monitoring Suppl (ACCU-CHEK GUIDE) w/Device KIT 12/17/2018 03/14/2023 carvedilol (COREG) 25 MG tabletIndications:Essent ial hypertension Take 1 tablet by mouth 2 times daily with morning and evening meal 180 tablet 08/26/2019 11/21/2019 ferrous sulfate 325 (65 FE) MG tabletIndications:Iron deficiency anemia, unspecified iron deficiency anemia type Take 1 tablet by mouth 2 times daily with morning and evening meal 60 tablet 4 07/29/2019 01/05/2021 glipiZIDE (GLUCOTROL) 5 MG tabletIndications: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) Take 1 tablet by mouth 2 times daily,before breakfast and supper 90 tablet 2 09/17/2019 12/12/2019 hydrALAZINE (APRESOLINE) 25 MG tabletIndications:Essent ial hypertension Take 1 tablet by mouth 2 times daily FOR BLOOD PRESSURE 60 tablet 09/15/2019 09/29/2019 lisinopril (PRINIVIL; ZESTRIL) 40 MG tabletIndications:Essent ial hypertension Take 1 tablet by mouth once daily 90 tablet 1 07/14/2019 02/11/2020 documented as of this encounter Plan of Treatment Upcoming Encounters Date Type Department Care Team (Late st Contact Info) Description 12/15/2024 1:00 PM CDT Office Visit [facility] - Internal Med [address] [facility] [place] [address] Neil Velasquez MD [address] [facility] [place] [address] documented as of this encounter Procedures Procedure Name Priority Date/Time Associated Diagnosis Comments US THYROID Routine 09/25/2019 1:00 PM DIESEL POWERPLANT MECHANIC Enlarged thyroid documented in this encounter Results * US THYROID (09/25/2019 1:00 PM DIESEL POWERPLANT MECHANIC) Anatomical Region Laterality Modality Chest Ultrasound 09/25/2019 1:19 PM DIESEL POWERPLANT MECHANIC Impressions 09/25/2019 3:31 PM DIESEL POWERPLANT MECHANIC IMPRESSION: Normal thyroid sonogram without suspicious thyroid nodules based on TI-RADS criteria. Dictated by Santhosh Aleman MD (vice president of product marketing). This report was approved ??by Santhosh Aleman M.D. ?? on 09/25/2019 3:05 PM . I, Dr. ETHEL CHAUDHARI have personally reviewed and interpreted this examination/study. This report was electronically signed by ETHEL CHAUDHARI ??on 09/25/2019 3:31 PM . Narrative 09/25/2019 3:31 PM DIESEL POWERPLANT MECHANIC EXAMINATION: Thyroid sonogram HISTORY: E04.9: Enlarged thyroid [...] TI-RADS criteria. Dictated by Santhosh Aleman MD (vice president of product marketing). This report was approved by Santhosh Aleman M.D. on 09/25/2019 3:05 PM. I, Dr. ETHEL CHAUDHARI have personally reviewed and interpreted this examination/study. This report was electronically signed by ETHEL CHAUDHARI on 09/25/20193:31 PM . Catherine Salmeron DRY KILN FEEDER-LACE WEAVER US ORDERABLES documented in this encounter Visit Diagnoses Diagnosis Enlarged thyroid Goiter, unspecified documented in this encounter
--- OUTSIDE RECORDS SUMMARY | 2024-08-02 10:01 | XMS_ITS | Encounter Summary ---
Author Organization [facility] Address [address] [place] [address] Care Team Providers Care Housekeeping Supervisor Name Role Phone Unavailable Primary Care Provider Unavailabl e Reason for Visit * Reason Onset Date Comments MEDICATION REFILL 10/25/2020 Encounter Details Date Type Department Care Team (Late st Contact Info) Description 10/25/2020 Refill [facility] [address] [place] [address], [place] [address] Rosalee Cano MD [address] [place] [address] OF [facility] [place] [address] MEDICATION REFILL Social History Tobacco Use Types [...] Telephone Encounter - Suad Ingram RN - 10/25/2020 12:36 PM CDT Refill Request Mauricio Flores NEREIDA: 08/11/20 NOV scheduled: 01/05/2021 LRF: 06/29/20 Qty Disp: 60 # of refills: 3 Allergies: Allergies Allergen Reactions ??? Hydrocodone-Acetaminophen Rash Vicodin ??? [place] Itching Pended Medication Order: Requested Prescriptions Pending Prescriptions Disp Refills ??? carvedilol (COREG) 25 MG tablet 60 tablet 3 Sig: Take 1 (one) tablet by mouth 2 times daily with morning and evening meal documented in this encounter Plan of Treatment Upcoming Encounters Date Type Department Care Team (Late st Contact Info) Description 12/15/2024 1:00 PM CDT Office Visit [facility] - Internal Med [address] [facility], [place] [address] Neil Velasquez MD [address] [facility] [place] [address] documented as of this encounter Visit Diagnoses Not on filedocumented in this encounter
--- OUTSIDE RECORDS SUMMARY | 2024-08-02 10:01 | XMS_ITS | Encounter Summary ---
Author Organization [facility] Health Address [address] [facility] [place] [address] Care Team Providers Care Crusher Name Role Phone Unavailable Primary Care Provider Unavailabl e Reason for Visit * Reason Onset Date Comments MEDICATION REFILL 12/12/2019 Encounter Details Date Type Department Care Team (Late st Contact Info) Description 12/12/2019 Refill [facility] [address] [address] Catherine Salmeron, SLAT BASKET MAKER HELPER-MULTIMEDIA ARTIST [address] OF [facility] [place] [address] MEDICATION REFILL Social History Tobacco Use Types [...] Telephone Encounter - Stacy Snow RN - 12/12/2019 12:20 PM CDT Refill Request Mauricio Larios NEREIDA: 09-15-19Jun due: 4month f/u NOV scheduled: 01-19-20 LRF: 09-17-19 Qty Disp: 90 # of refills: 2 Allergies: Allergies Allergen Reactions ??? Hydrocodone-Acetaminophen Rash Vicodin ??? [place] Itching Pended Medication Order: Requested Prescriptions Pending Prescriptions Disp Refills ??? glipiZIDE (GLUCOTROL) 5 MG tablet 180 tablet 2 Sig: Take 1 tablet by mouth 2 times daily, before breakfast and supper documented in this encounter Plan of Treatment Upcoming Encounters Date Type Department Care Team (Late st Contact Info) Description 12/15/2024 1:00 PM CDT Office Visit [facility] - Internal Med [address] [facility], [place] [phone] Neil Velasquez MD [address] [facility] 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
--- OUTSIDE RECORDS SUMMARY | 2024-08-02 10:01 | XMS_ITS | Encounter Summary ---
Author Organization [facility] Health Address [address] [facility] [place] [address] Care Team Providers Care Neon Glass Bender Name Role Phone Unavailable Primary Care Provider Unavailabl e Reason for Visit * Reason Onset Date Comments MEDICATION REFILL 09/20/2020 Encounter Details Date Type Department Care Team (Late st Contact Info) Description 09/20/2020 Refill [facility] [address] [facility], [place] [phone] Catherine Salmeron, TOMBSTONE POLISHER-RETURNED CASE INSPECTOR [address] [place] [address] 2L DIV OF [facility] [place] [address] MEDICATION REFILL Social History Tobacco Use Types [...] encounter Miscellaneous Notes * Telephone Encounter - Chris Roche RN - 09/20/2020 10:23 AM CST Refill Request Mauricio Flores NEREIDA: 08/11/20 NOV scheduled: Visit date not found LRF: 08/11/20 Qty Disp: 90 # of refills: 0 Allergies: Allergies Allergen Reactions ??? Hydrocodone-Acetaminophen Rash Vicodin ??? [place] Itching Pended Medication Order: Requested Prescriptions Pending Prescriptions Disp Refills ??? hydrALAZINE (APRESOLINE) 50 MG tablet 90 tablet 0 Sig: Take 1 (one) tablet by mouth 3 times daily RHANGER SUPERVISOR documented in this encounter Plan of Treatment Upcoming Encounters Date Type Department Care Team (Late st Contact Info) Description 12/15/2024 1:00 PM CDT Office Visit [facility] - Internal Med [address] [facility], [place] [address] Neil Velasquez MD [address] [facility] [place] [address] documented as of this encounter Visit Diagnoses Diagnosis Essential hypertension documented in this encounter
--- OUTSIDE RECORDS SUMMARY | 2024-08-02 10:01 | XMS_ITS | Encounter Summary ---
Author Organization [facility] Health Address [address] [place] [address] Care Team Providers Care Anodic Treater Name Role Phone Unavailable Primary Care Provider Unavailabl e Reason for Visit * Auth/Cert Specialty Diagnoses / Procedures Referred By Jimmy schaeffer Referred To Contact Diagnoses Screen for colon cancer Screen for colon cancer [Z12.11] Procedures FL COLONOSCOPY,DIAGNOSTIC FL COLONOSCOPY,BIOPSY [place] CANC SCRN,SCR COLONOSCOPY+BE [place] CANC SCRN,SCOPY NOT HI RISK [place] CANC SCRN,COLONOSCPY HI RISK COLONOSCOPY SCREEN Referral ID Status Reason Start Date Expiration Date Visits Re quested Visits Authorized [id number] 1 1 Encounter Details Date Type Department Care Team (Latest Contact Info) Description 12/08/2020 11:58 AM CDT - 12/08/2020 4:49 PM CDT Hospital Encounter [facility] [address] [place] [phone] Sara Haddad MD [address] [facility] 3L [place] [address] Gastroenterology Discharge Disposition: Home or Self Care Social [...] Sign Reading Time Taken Comments Blood Pressure 200/101 12/08/2020 4:30 PM CDT Pulse 54 12/08/2020 4:27 PM CDT Temperature 36.4 ??C (97.6 ??F) 12/08/2020 4:04 PM CD T Respiratory Rate 19 12/08/2020 4:27 PM CDT Oxygen Saturation 95% 12/08/2020 4:27 PM CDT Inhaled Oxygen Concentration - - Weight 127 kg (280 lb) 12/08/2020 2:07 PM CDT Height 167.6 cm (5' 6 ) 12/08/2020 2:07 PM CDT Body Mass Index 45.19 12/08/2020 2:07 PM CDT documented in this encounter Discharge Instructions * Discharge Instructions* Hannah Lee, RN - 12/08/2020 4:14 PM CDT Images [...] ask them during your visits. ?? Copyright [employer] 2020 Information is for End User's use only and may not be sold, redistributed or otherwise used for commercial purposes. All illustrations and images included in CareNotes?? are the copyrighted property of [employer]. or [employer] The above information is an visual aid expert only. It is not intended as medical [...] Gatherings with Friends and Family: ??? Attends Mormon Services: ??? Active Member of Clubs or Organizations: ??? Attends Club or Organization Meetings: ??? Marital Status: Intimate Partner Violence: ??? Fear of Current or Ex-Partner: ??? Emotionally Abused: ??? Physically Abused: ??? Sexually Abused: Allergies Allergen Reactions ??? Hydrocodone-Acetaminophen Rash Vicodin ??? [place] Itching No current facility-administered medications on file [...] Munoz MD PGY-4, Gastroenterology & Hepatology Fellow [facility] Pager: [phone] documented in this encounter Plan of Treatment Upcoming Encounters Date Type Department Care Team (Late st Contact Info) Description 12/15/2024 1:00 PM CDT Office Visit [facility] - Internal Med [address] [facility], [place] [address] Neil Velasquez MD [address] [facility] [place] [address] Scheduled Orders Name Type Priority Associated Diagnoses [...] - 115 mg/dL 12/08/2020 2:54 PM CDT [facility] Specimen Type Arterial/C apillary 12/08/2020 2:54 PM CDT [facility] Blood BLOOD SPECIMEN / Unknown 12/08/2020 2:52 PM CDT 12/08/2020 2:54 PM CDT Sara Haddad MD LAB - POINT OF MD RE ORDERABLES Performing Organization Address City/State/[facility] Co de Phone Number [facility] [address] [place] [address], [facility] [phone] * ENDOSCOPY, COLON, SCREENING (12/08/2020 2:44 PM CDT) Report Endoscopy POC Endoscopy Department Report _ Patient Name: Mauricio Flores Procedure Date: 12/08/2020 2:44 PM ? Date of : 1965 Classification: Outpatient ?Gender: Female Ethnicity: Not or ? Race: Black or _ Providers: ?Sara Ramsey MD Referring MD: ? [facility] Internal Medicine Clinic Procedure: ?Colonoscopy Indications: [...] Residual hemorrhoidal skin tags CPT copyright 2019 [place] [employer]. All rights reserved. The codes documented in this report are preliminary and upon computer language coder review may be revised to meet current compliance requirements. Sara Ramsey MD 12/08/2020 4:01:43 PM Note Initiated On: 12/08/2020 2:44 PM Number of Addenda: 0 ? [facility] ? [address] [place] [address] [facility] 12/08/2020 2:44 PM CDT Sara Haddad MD GI PROCEDURE ORDE RABLES Performing Organization Address City/[facility]/ZIP Co de Phone Number [facility] * HCG URINE QUAL POCT NOTIFICATION (12/08/2020 1:53 PM CDT) Comment Notification Label Only - See Separate Report 12/08/2020 3:00 PM CDT [facility] Urine URINE / Unknown 12/08/2020 1 :53 PM CDT 12/08/2020 1:53 PM CDT Sara Haddad MD LAB - URINALYSIS ORDERABLES Performing Organization Address [facility]/ZIP Co de Phone Number [address] [address], [facility] [phone] documented in this encounter Visit Diagnoses Diagnosis Pre-op evaluation- Primary Preoperative examination, unspecified documented in this encounter Administered Medications Inactive [...]
--- OUTSIDE RECORDS SUMMARY | 2024-08-02 10:01 | XMS_ITS | Encounter Summary ---
Author Organization [facility] Health Address [address] [facility] [place] [address] Care Team Providers Care Lead Ramp Agent Name Role Phone Unavailable Primary Care Provider Unavailabl e Reason for Visit * Reason Onset Date Comments MEDICATION REFILL 08/30/2020 Encounter Details Date Type Department Care Team (Late st Contact Info) Description 08/30/2020 Refill [facility] [address] [facility], [place] [phone] Catherine Salmeron, CASTING PLUG ASSEMBLER-EDUCATION PARAPROFESSIONAL [address] [place] [address] 2L DIV OF [facility] [place] [address] MEDICATION REFILL Social History Tobacco Use Types [...] * Telephone Encounter - Laura Kern - 08/30/2020 9:21 AM CST Refill Request Mauricio Flores NEREIDA: 08/11/20 NOV due: none NOV scheduled: Visit date not found LRF: 04/17/20 Qty Disp: 90 # of refills: 0 Allergies: Allergies Allergen Reactions ??? Hydrocodone-Acetaminophen Rash Vicodin ??? [place] Itching Pended Medication Order: Requested Prescriptions Pending Prescriptions Disp Refills ??? atorvastatin (LIPITOR) 40 MG tablet 90 tablet 0 Sig: Take 1 (one) tablet by mouth at bedtime ??? lisinopril (PRINIVIL; ZESTRIL) 40 MG tablet 90 tablet 0 Sig: Take 1 (one) tablet by mouth once daily ORK ARCHITECT documented in this encounter Plan of Treatment Upcoming Encounters Date Type Department Care Team (Late st Contact Info) Description 12/15/2024 1:00 PM CDT Office Visit [facility]ician Group - Internal Med [address] [facility], [place] [address] Neil Velasquez MD [address] [facility] [place] [address] documented as of this encounter Visit Diagnoses Diagnosis Hyperlipidemia, unspecified hyperlipidemia type documented in this encounter
--- OUTSIDE RECORDS SUMMARY | 2024-08-02 10:01 | XMS_ITS | Encounter Summary ---
Author Organization [facility] Health Address [address] [place] [address] Care Team Providers Care Utility Bill Collection Clerk Name Role Phone Unavailable Primary Care Provider Unavailabl e Reason for Visit * Reason Onset Date Comments MEDICATION REFILL 02/11/2020 Encounter Details Date Type Department Care Team (Late st Contact Info) Description 02/11/2020 Refill [facility] [address] [address] Catherine Salmeron, PRESS WRITER-[facility] [address] OF [facility] [place] [address] MEDICATION REFILL Social History Tobacco Use Types [...] encounter Miscellaneous Notes * Telephone Encounter - Hedy Zhang MA - 02/11/2020 9:26 AM CDT Refill Request Mauricio Larios NEREIDA: 09-15-19 NOV scheduled: none LRF: 11-20-19 Qty Disp: 90 # of refills: 4 Allergies: Allergies Allergen Reactions ??? Hydrocodone-Acetaminophen Rash Vicodin ??? [place] Itching Pended Medication Order: Requested Prescriptions Pending Prescriptions Disp Refills ??? lisinopril (PRINIVIL; ZESTRIL) 40 MG tablet 90 tablet 4 Sig: Take 1 tablet by mouth once daily documented in this encounter Plan of Treatment Upcoming Encounters Date Type Department Care Team (Late st Contact Info) Description 12/15/2024 1:00 PM CDT Office Visit [facility] - Internal Med [address] [facility], [place] [address] Neil Velasquez MD [address] [facility] [place] [address] documented as of this encounter Visit Diagnoses Diagnosis Essential hypertension documented in this encounter
--- OUTSIDE RECORDS SUMMARY | 2024-08-02 10:01 | XMS_ITS | Encounter Summary ---
Author Organization [facility] Health Address [address] [facility] [place] [address] Care Team Providers Care Logging Rafter Laborer Name Role Phone Rosalee Cano MD Primary Care Provider [phone] Reason for Visit * Reason Onset Date Comments MEDICATION REFILL 01/19/2021 Encounter Details Date Type Department Care Team (Late st Contact Info) Description 01/19/2021 Refill [facility] [address] [place] [address], [place] [address] Rosalee Cano MD [address] [place] [address] OF [facility] [place] [address] MEDICATION REFILL Social History Tobacco Use Types [...] Telephone Encounter - Stacy Snow RN - 01/19/2021 11:48 AM CDT Refill Request Mauricio Flores NEREIDA: 12-22-20 NOV scheduled: 03/23/2021 LRF: 12-22-20 Qty Disp: 60 # of refills: 1 Allergies: Allergies Allergen Reactions ??? Hydrocodone-Acetaminophen Rash Vicodin ??? [place] Itching Pended Medication Order: Requested Prescriptions Pending Prescriptions Disp Refills ??? carvedilol (COREG) 25 MG tablet 60 tablet 1 Sig: Take 1 (one) tablet by mouth 2 times daily with morning and evening meal documented in this encounter Plan of Treatment Upcoming Encounters Date Type Department Care Team (Late st Contact Info) Description 12/15/2024 1:00 PM CDT Office Visit [facility] - Internal Med [address] [facility], [place] [address] Neil Velasquez MD [address] [facility] [place] [address] documented as of this encounter Visit Diagnoses Not on filedocumented in this encounter Care Teams Logging Rafter Laborer Relationship Specialty Start Date End Date Rosalee Cano MD [address] [place] [address] 2L DIV OF [facility] [place] [address] PCP - General 12/10/20 04/12/21 documented as of this encounter
--- OUTSIDE RECORDS SUMMARY | 2024-08-02 10:01 | XMS_ITS | Encounter Summary ---
Author Organization [facility] Health Address [address] [facility] [place] [address] Care Team Providers Care Industrial Maintenance Mechanic Name Role Phone Unavailable Primary Care Provider Unavailabl e Reason for Visit * Reason Onset Date Comments MEDICATION REFILL 08/21/2019 atorvastatin Encounter Details Date Type Department Care Team (Late st Contact Info) Description 08/21/2019 Refill [facility] [address] [address] Catherine Salmeron, GRANT COORDINATOR-RN TRANSFER [address] OF [facility] [place] [address] MEDICATION REFILL (atorvastatin ) Social History Tobacco Use Types Packs/Day Years [...] encounter Miscellaneous Notes * Telephone Encounter - Rose Mary Dejesus - 08/21/2019 10:00 PM CST Patient requesting refills for the following (atorvastatin 40 mg ) medications. NEREIDA: 07-14-19 NOV: 09-15-19 @ 12: 40 pm Problem List Identified: office visit on 07-14-19 HLD Medication attached per refill protocol/guidlines for further review by provider yes PCP / Resident PCP verified yes Allergies Reviewed yes Pharmacy Reviewed yes Medication details entered yes Office visit within the last six months yes if not within last 6 months route to GIM-scheduling as well. Office visit greater than 12 months no routed to GIM scheduling ONLY no. R PUMP ASSEMBLER documented in this encounter Plan of Treatment Upcoming Encounters Date Type Department Care Team (Late st Contact Info) Description 12/15/2024 1:00 PM CDT Office Visit [facility] - Internal Med [address] [facility], [place] [address] Neil Velasquez MD [address] [facility] [place] [address] documented as of this encounter Visit Diagnoses Diagnosis Type 2 diabetes mellitus with complication, without long-term current use of insulin (HCC) Hyperlipidemia, unspecified hyperlipidemia type documented in this encounter
--- OUTSIDE RECORDS SUMMARY | 2024-08-02 10:01 | XMS_ITS | Encounter Summary ---
Author Organization [facility] Health Address [address] [facility] [place] [address] Care Team Providers Care Grinding Machine Tender Name Role Phone Unavailable Primary Care Provider Unavailabl e Encounter Details Date Type Department Care Team (Late st Contact Info) Description 12/03/2020 Patient Outreach [facility] ENDOSCOPY [address] [place] [phone] Randi Rosa, RN Social History Tobacco Use Types Packs/Day Years [...] encounter Miscellaneous Notes * Telephone Encounter - Randi Rosa RN - 12/03/2020 1:16 PM CDT Pt confirmed procedure appointment for colonoscopy on 12/08/2020 at 11a. Will pick prep. Verbalizedunderstanding of prep instructions including NPO after midnight. Will arrive 1 hour prior to procedure time. Has oil transport driver (son)and has no further questions at this time. This pt is not taking blood thinning medications. Patient specifically denies symptoms of COVID-19 including chest pain, shortness of breath, cough or fever. Will stop iron. documented in this encounter Plan of Treatment Upcoming Encounters Date Type Department Care Team (Late st Contact Info) Description 12/15/2024 1:00 PM CDT Office Visit [facility] - Internal Med [address] [facility], [place] [address] Neil Velasquez MD [address] [facility] [place] [address] documented as of this encounter Visit Diagnoses Not on filedocumented in this encounter
--- OUTSIDE RECORDS SUMMARY | 2024-08-02 10:01 | XMS_ITS | Encounter Summary ---
Author Organization [facility] Health Address [address] [place] [address] Care Team Providers Care Library Science Professor Name Role Phone Unavailable Primary Care Provider Unavailabl e Reason for Visit * Reason Onset Date Comments MEDICATION REFILL 11/12/2020 Encounter Details Date Type Department Care Team (Late st Contact Info) Description 11/12/2020 Refill [facility] [address] [place] [address], [place] [address] Rosalee Cano MD [address] [place] [address] OF [facility] [place] [address] MEDICATION REFILL Social History Tobacco Use Types [...] Telephone Encounter - Suad Ingram RN - 11/12/2020 1:38 PM CDT Refill Request Mauricio Flores NEREIDA: 08/11/20 NOV scheduled: 01/05/2021 LRF: 10/13/20 Qty Disp: 90 # of refills: 0 Allergies: Allergies Allergen Reactions ??? Hydrocodone-Acetaminophen Rash Vicodin ??? [place] Itching Pended Medication Order: Requested Prescriptions Pending Prescriptions Disp Refills ??? hydrALAZINE (APRESOLINE) 50 MG tablet 90 tablet 0 Sig: Take 1 (one) tablet by mouth 3 times daily documented in this encounter Plan of Treatment Upcoming Encounters Date Type Department Care Team (Late st Contact Info) Description 12/15/2024 1:00 PM CDT Office Visit [facility] - Internal Med [address] [facility], [place] [address] Neil Velasquez MD [address] [facility] [place] [address] documented as of this encounter Visit Diagnoses Diagnosis Essential hypertension documented in this encounter
--- OUTSIDE RECORDS SUMMARY | 2024-08-02 10:01 | XMS_ITS | Encounter Summary ---
Author Organization [facility] Health Address [address] [facility] [place] [address] Care Team Providers Care Crime Scene Technician Name Role Phone Rosalee Cano MD Primary Care Provider [phone] Reason for Visit * Reason Onset Date Comments MEDICATION REFILL 01/31/2021 Encounter Details Date Type Department Care Team (Late st Contact Info) Description 01/31/2021 Refill [facility] [address] [place] [address], [place] [address] Rosalee Cano MD [address] [place] [address] OF [facility] [place] [address] MEDICATION REFILL Social History Tobacco Use Types [...] Telephone Encounter - Lucia Perry RN - 01/31/2021 2:17 PM CDT Refill Request Mauricio Flores NEREIDA: 01/05/21 NOV scheduled: 03/23/2021 LRF: 01/04/21 Qty Disp: 90 # of refills: 0 Allergies: Allergies Allergen Reactions ??? Hydrocodone-Acetaminophen Rash Vicodin ??? [place] Itching Pended Medication Order: Requested Prescriptions Pending Prescriptions Disp Refills ??? hydrALAZINE (APRESOLINE) 50 MG tablet 90 tablet 0 Sig: Take 1 (one) tablet by mouth 3 times daily documented in this encounter Plan of Treatment Upcoming Encounters Date Type Department Care Team (Late st Contact Info) Description 12/15/2024 1:00 PM CDT Office Visit [facility] - Internal Med [facility] [facility], [place] [address] Neil Velasquez MD [address] [facility] [place] [address] documented as of this encounter Visit Diagnoses Diagnosis Essential hypertension documented in this encounter Care Teams Crime Scene Technician Relationship Specialty Start Date End Date Rosalee Cano MD [address] [place] [address] 2L DIV OF [facility] [place] [address] PCP - General 12/10/20 04/12/21 documented as of this encounter
--- OUTSIDE RECORDS SUMMARY | 2024-08-02 10:01 | XMS_ITS | Encounter Summary ---
Author Organization [facility] Health Address [address] [facility] [place] [address] Care Team Providers Care Fund Accounting Manager Name Role Phone Unavailable Primary Care Provider Unavailabl e Reason for Visit * Reason Onset Date Comments MEDICATION REFILL 08/26/2019 Encounter Details Date Type Department Care Team (Late Contact Info) Description 08/26/2019 Refill [facility] [address] [address] Catherine Salmeron, PRESIDENT PRACTICING UROLOGIST-[facility] [address] OF [facility] INTERNAL [place] [address] MEDICATION REFILL Social History Tobacco Use Types [...] encounter Miscellaneous Notes * Telephone Encounter - Ebony Mabry - 08/26/2019 10:48 AM CST Refill request sent per protocol to provider NEREIDA: 07-14-19 NOV: 09-15-19 INE TOOL DESIGNER documented in this encounter Plan of Treatment Upcoming Encounters Date Type Department Care Team (Late st Contact Info) Description 12/15/2024 1:00 PM CDT Office Visit [facility] - Internal Med [address] [facility], [place] [address] Neil Velasquez MD [address] [facility] [place] [address] documented as of this encounter Visit Diagnoses Diagnosis Essential hypertension documented in this encounter
--- OUTSIDE RECORDS SUMMARY | 2024-08-02 10:01 | XMS_ITS | Encounter Summary ---
Author Organization [facility] Health Address [address] [facility] [place] [address] Care Team Providers Care Inking Machine Tender Name Role Phone Unavailable Primary Care Provider Unavailabl e Encounter Details Date Type Department Care Team (Late Contact Info) Description 06/07/2020 Orders Only [facility] - Nephrology [address] [place] [address], [place] [phone] Lauryn Fu MD [address] [facility] [place] [address] Essential hypertension Social History Tobacco Use Types [...] Visit [facility] - Internal Med [address] [place] [address] [place] [address] Neil Velasquez MD [address] [facility] [place] [address] Scheduled Orders Name Type Priority Associated Diagnoses Orde r Schedule RENAL FUNCTION PANEL Lab Routine Essential hypertension Ordered: 06/07/2020 MICROALB/CREAT RATIO URINE RANDOM PANEL Lab Routine Essential hypertension Ordered: 06/07/2020 documented as of this encounter Visit Diagnoses Diagnosis Essential hypertension- Primary documented in this encounter
--- OUTSIDE RECORDS SUMMARY | 2024-08-02 10:01 | XMS_ITS | Encounter Summary ---
Author Organization [facility] Health Address [address] [facility] [place] [address] Care Team Providers Care Residential Counselor Name Role Phone Unavailable Primary Care Provider Unavailabl e Reason for Visit * Reason Comments Follow-up no complaints Encounter Details Date Type Department Care Team (Late st Contact Info) Description 06/07/2020 10:00 AM CDT Office Visit [facility] - Nephrology [address] [place] [address], [place] [phone] Lauryn Fu MD [address] [place] [address] [address] [place] [address] Proteinuria, unspecified type (Primary Dx); Essential hypertension; Family history of ischemic heart disease and other diseases of the circulatory system; Isolated proteinuria with morphologic lesion Social History Tobacco Use Types Packs/Day Years [...] Sign Reading Time Taken Comments Blood Pressure 158/73 06/07/2020 10:15 AM CDT Pulse 66 06/07/2020 10:15 AM CDT Temperature 35.8 ??C (96.5 ??F) 06/07/2020 10:15 AM C DT Respiratory Rate 20 06/07/2020 10:15 AM CDT Oxygen Saturation 100% 06/07/2020 10:15 AM CDT Inhaled Oxygen Concentration - - Weight 130.2 kg (287 lb) 06/07/2020 10:15 AM CDT Height 167.6 cm (5' 6 ) 06/07/2020 10:15 AM CDT Body Mass Index 46.32 06/07/2020 10:15 AM CDT documented in this encounter Progress Notes * Lauryn Fu MD - 06/07/2020 10:21 AM CDT Patient Name: [facility] : New Patient Chief complaint: Proteinuria HPI: Mauricio Flores is a 55 year old female with a PMHx of HTN, DM , who presents for Initialevaluation, referred by PCP because of proteinuria, she has a 24 hr urine collection done in showed 285 mg of protein, it seems there was an order for spot urine for protein indicating what was not done. There is no imaging studies. Patient is using nonsteroidal anti-inflammatory drugs for joint pain.. There is no history of autoimmune disease specifically lupus. Review of Systems: General: no fever/chills, no malaise, no weight loss Head: no headache, no lightheadedness Eyes: no double or blurry vision Mouth: no dry mouth, no sore throat Respiratory: no cough, no shortness of breath Cardiovascular: no chest pain, no palpitations, no dyspnea on exertion, GI: no abdominal pain, no nausea/vomiting, no changes in bowel habits, no blood in stool : no dysuria, no hematuria, no incontinence Extremities: no joint pain, no muscle pain Neurological: no focal deficits, no new numbness/tingling, no tremor Skin: no rash, intact PMH: Past Medical History: Diagnosis Date ??? Hypertension ??? Nephropathy ??? Pericardial cyst ??? Type 2 diabetes mellitus PSH: Past Surgical History: Procedure Laterality Date ??? Section x2 ??? Cholecystectomy ??? Hernia Repair FH: Family History Problem Relation Name Age of Onset ??? Diabetes Mother ??? Diabetes Maternal Grandmother ??? Diabetes Paternal Grandmother ??? Cancer Maternal Grandfather ??? Cancer Father ??? Hypertension Sister SH: Social History Socioeconomic History ??? Marital status: [...] 30 and 34. . Stays at home. Medications: Allergies: Allergies Allergen Reactions ??? Hydrocodone-Acetaminophen Rash Vicodin ??? Girard Itching Vitals: Vitals: 06/07/20 1015 BP: 158/73 Pulse: 66 Resp: 20 Temp: 96.5 ??F (35.8 ??C) SpO2: 100% Weight: 130.2 kg (287 lb) Height: 1.676 m (5' 6 ) Estimated body mass index is 46.32 kg/m?? as calculated from the following: Height as of this encounter: 1.676 m (5' 6 ). Weight as of this encounter: 130.2 kg (287 lb). Physical Examination: General: Comfortable, morbidly obese HEENT: normocephalic,atraumatic Neck: no thyromegaly, no lymphadenopathy Chest: good air entry shahram , no added sounds CVS: RRR, no murmurs Abdomen: soft lax, no tenderness, active BS Extremities: no edema, no joint swelling Neuro: AAO x 3. Non-focal Labs: On 05/05/2020 creatinine was 0.8 with estimated GFR more than 60 mL/minute 06/20/2019 Right kidney: 12.8 x 4.3 x 5.7 cm Left kidney: 11.9 x 6.2 x 4.9 cm ?? Renal parenchymal echogenicity is normal. There is no evidence of a solid renal mass, renal calculi, or hydronephrosis Assessment and Plan: Patient is with minimal proteinuria and preserved GFR most likely a combination of morbid obesity and diabetes mellitus as well as hypertension. She is already on angiotensin receptor blockers losartan 100 mg daily. Blood pressure is elevated in the office the goal should be below 130/80 . PCP has been adjusting blood pressure medications, she told me that her blood pressure last month was more than 200 systolic and she is pleased with how does not look like now. she is strongly encouraged to lose weight. Low-salt diet reinforced . She will need to stop/avoid nonsteroidal anti-inflammatory drugs. RTC in 12 months with renal panel, urinalysis, spot urine for albumin and creatinine. Lauryn Fu Division of Nephrology documented in this encounter Miscellaneous Notes * Communication Body - Ayesha Lopez RN - 06/07/2020 10:35 AM CDT No complaints during this assessment documented in this encounter Plan of Treatment Upcoming Encounters Date Type Department Care Team (Late st Contact Info) Description 12/15/2024 1:00 PM CDT Office Visit [facility] - Internal Med [address] [facility], [place] [address] Neil Velasquez MD [address] [facility] [place] [address] documented as of this encounter Visit Diagnoses Diagnosis Proteinuria, unspecified type- Primary Essential hypertension Family history of ischemic heart disease and other diseases of the circulatory system Isolated proteinuria with morphologic lesion Nephritis and nephropathy, not specified as acute or chronic, with unspecified pathological lesion in kidney documented in this encounter
--- OUTSIDE RECORDS SUMMARY | 2024-08-02 10:01 | XMS_ITS | Encounter Summary ---
Author Organization [facility] Health Address [address] [facility] [place] [address] Care Team Providers Care Cashier And Waiter/Waitress Name Role Phone Unavailable Primary Care Provider Unavailabl e Reason for Visit * Reason Comments Blood Pressure Check Encounter Details Date Type Department Care Team (Latest Contact Info) Description 05/28/2019 10:00 AM CDT Clinical Support [facility] General Internal Medicine [address] [address] Essential hypertension Social History Tobacco Use Types [...] Sign Reading Time Taken Comments Blood Pressure 140/90 05/28/2019 9:58 AM CDT Pulse 54 05/28/2019 9:58 AM CDT Temperature 36.3 ??C (97.3 ??F) 05/28/2019 9:58 AM CD T Respiratory Rate 18 05/28/2019 9:58 AM CDT Oxygen Saturation - - Inhaled Oxygen Concentration - - Weight 131.5 kg (290 lb) 05/28/2019 9:58 AM CDT Height - - Body Mass Index 48.26 12/30/2018 9:20 AM CDT documented in this encounter Patient Instructions * Patient Instructions* Laura Hunt - 05/28/2019 10:02 AM CDT How to Contact Us Between Office Visits [...] to be seen. Please call us at [phone], option 1 thenoption 1 in the morning you would like to be seen. For scheduling routine appointments, requesting refills or leaving a message for your doctor, the office phone is [phone]. You will be given options to get to the assistance you need. Phone lines are open from 8:00 am to4:30 pm Sunday through Sunday. All prescription refills must be requested during regular office phone hours. Our fax number is [phone]. After hours urgent calls that cannot wait untill phone lines are open on the next business day are given to the General Internal Medicine physician talent acquisition lead. Please call [phone]. Identify yourself as a patient in our practice and give the billet heater operator your doctor's name. The billet heater operator will contact the physician talent acquisition lead. You can generally expect a return call within 30 minutes. On weekends, physicians are seeing hospitalized patients and there maybe a longer wait. Visit our website at [email or web address] [email or web address] for information about our practice and an interactive health encyclopedia. Our clinic's missed appointment policy is: - Patients with 3 consecutively missed appointments OR 3 missed appointments in a 12 month period will no longer be seen by General Internal Medicine. They will be asked to seek Primary Care outside of [facility]. - A missed appointment is defined as: * An appointment cancelled less than 24 hours in advance *Arriving to a scheduled appointment too late to be seen (Patients who arrive to clinic later than their scheduled appointment time may not be seen) * Not showing up for an appointment documented in this encounter Progress Notes * Laura Hunt - 05/28/2019 10:20 AM CDT Reported B/P 140/90 to Catherine Young. Stopped medication Losartan. Start Lisinipril. Patient is to Come back in 2 weeks For B/P check. documented in this encounter Plan of Treatment Upcoming Encounters Date Type Department Care Team (Late st Contact Info) Description 12/15/2024 1:00 PM CDT Office Visit [facility] - Internal Med [address] [facility], [place] [phone] Neil Velasquez MD [address] [facility] [place] [address] documented as of this encounter Visit Diagnoses Diagnosis Essential hypertension- Primary documented in this encounter
--- OUTSIDE RECORDS SUMMARY | 2024-08-02 10:01 | XMS_ITS | Encounter Summary ---
Author Organization [facility] Health Address [address] [facility] [place] [address] Care Team Providers Care Stock Dealer Name Role Phone Unavailable Primary Care Provider Unavailabl e Reason for Visit * Reason Comments Hypertension Encounter Details Date Type Department Care Team (Latest Contact Info) Description 05/12/2019 11:15 AM CDT Clinical Support [facility] General Internal Medicine [address] [address] Essential hypertension Social History Tobacco Use Types [...] Sign Reading Time Taken Comments Blood Pressure 180/88 05/12/2019 11:17 AM CDT Pulse 64 05/12/2019 11:17 AM CDT Temperature - - Respiratory Rate - - Oxygen Saturation - - Inhaled Oxygen Concentration - - Weight 136.1 kg (300 lb) 05/12/2019 11:17 AM CDT Height - - Body Mass Index 49.92 12/30/2018 9:20 AM CDT documented in this encounter Patient Instructions * Patient Instructions* Bakari Barba - 05/12/2019 11:19 AM CDT How to Contact Us Between [...] to be seen. Please call us at [phone], option 1 thenoption 1 in the morning you would like to be seen. For scheduling routine appointments, requesting refills or leaving a message for your doctor, the office phone is [phone]. You will be given options to get to the assistance you need. Phone lines are open from 8:00 am to4:30 pm Sunday through Sunday. All prescription refills must be requested during regular office phone hours. Our fax number is [phone]. After hours urgent calls that cannot wait untill phone lines are open on the next business day are given to the General Internal Medicine physician recruiting consultant. Please call [phone]. Identify yourself as a patient in our practice and give the clamp forklift operator your doctor's name. The clamp forklift operator will contact the physician recruiting consultant. You can generally expect a return call within 30 minutes. On weekends, physicians are seeing hospitalized patients and there maybe a longer wait. Visit our website at [email or web address] for information about our practice and an interactive health encyclopedia. Our clinic's missed appointment policy is: - Patients with 3 consecutively missed appointments OR 3 missed appointments in a 12 month period will no longer be seen by General Internal Medicine. They will be asked to seek Primary Care outside of [facility]. - A missed appointment is defined as: * An appointment cancelled less than 24 hours in advance *Arriving to a scheduled appointment too late to be seen (Patients who arrive to clinic later than their scheduled appointment time may not be seen) * Not showing up for an appointment documented in this encounter Progress Notes * Bakari Barba - 05/12/2019 11:38 AM CDT Reported B/P to TRANSFORMER REPAIRER Catherine Young. She increased meds and wants pt to f/u nxt wk. documented in this encounter Plan of Treatment Upcoming Encounters Date Type Department Care Team (Late st Contact Info) Description 12/15/2024 1:00 PM CDT Office Visit [facility] - Internal Med [address] [facility], [place] [address] Neil Velasquez MD [address] [facility] [place] [address] documented as of this encounter Visit Diagnoses Diagnosis Essential hypertension- Primary documented in this encounter
--- OUTSIDE RECORDS SUMMARY | 2024-08-02 10:01 | XMS_ITS | Encounter Summary ---
Author Organization [facility] Health Address [address] [facility] [place] [address] Care Team Providers Care Load Manager Name Role Phone Unavailable Primary Care Provider Unavailabl e Reason for Visit * Reason Onset Date Comments Blood Pressure Check 05/26/2020 Encounter Details Date Type Department Care Team (Late st Contact Info) Description 05/26/2020 Telephone [facility] General [facility] [address] [facility] [address] [place] [address] Catherine Salmeron, CLINICAL SECRETARY-POULTRY PROCESSOR [address] OF [facility] [address] Blood Pressure Check Social History Tobacco Use Types Packs/Day Years [...] Telephone Encounter - Stacy Snow RN - 05/28/2020 8:33 AM CDT Called and spoke to this pt, requested that she set up a nurse visit for a b/p check. Pt states shecalled the b/p in on Sun. Triage instructed pt that is necessary for the pt to come in and have theb/p checked manually by a nurse and to bring her monitor to the appt to check for accuracy of readings. Pt agreeable and transferred to scheduling. * Telephone Encounter - Catherine Salmeron APRN-CNP - 05/28/2020 7:51 AM CDT Needs appointment for in office BP check. Please re-schedule. GIANNA Howe * Telephone Encounter - Kecia Vasquez RN - 05/27/2020 11:07 AM CDT Images from the original note were not included. Pt's listed number of [phone] is her 's number, pt's number is [phone]. Called andwas able to speak with pt and to give her Dr. Calzada's message: To Morocho MD 19 hours ago (3:30 PM) DEVAUGHN Faviola is out this week I would suggest making a nurse visit for BP check at a time when DEVAUGHN Faviola is in the office so shecan make a decision about how to manage BP Wanted to route call to Scheduling, but pt refused saying that she would make her own appointment. Pt encouraged to make the appointment for next week. Pt asked how her BP was and she said that it was the same as yesterdays, when asked if it was ware 170/93 pt acknowledged that it was. Pt was askedif she was under a lot of stress right now, and she said yes, but did not elaborate. Asked pt if anyone had spoken to her about Bio Feedback techniques, pt stated no. Pt encouraged to try to relax when things got hectic, either sit quietly or lay down, soft music or not, but to close her eyes and just concentrate on a scene in her mind that makes her happy and just do that for about 20 minutes, until she can make an appointment next week. Pt voiced understanding with affirmative response. * Telephone Encounter - To Morocho MD - 05/26/2020 3:29 PM CDT TRAM DRIVER Faviola is out this week I would suggest making a nurse visit for BP check at a time when TRAM DRIVER Faviola is in the office so shecan make a decision about how to manage BP * Telephone Encounter - Stacy Snow RN - 05/26/2020 12:37 PM CDT Pt calling stating that she cancelled her b/p check today and is calling with her b/p reading. States that her b/p is 170/93 in the left arm at 1230pm today. Pt denies s/s of htn when asked. Please advise. CB: [phone] documented in this encounter Plan of Treatment Upcoming Encounters Date Type Department Care Team (Late st Contact Info) Description 12/15/2024 1:00 PM CDT Office Visit [facility] - Internal Med [address] [facility], [place] [phone] Neil Velasquez MD [address] [facility] [place] [address] documented as of this encounter Visit Diagnoses Not on filedocumented in this encounter
--- OUTSIDE RECORDS SUMMARY | 2024-08-02 10:01 | XMS_ITS | Encounter Summary ---
Author Organization [facility] Health Address [address] [facility] [place] [address] Care Team Providers Care Pourer Bull Ladle Name Role Phone Rosalee Cano MD Primary Care Provider [phone] Reason for Visit * Reason Onset Date Comments MEDICATION REFILL 12/29/2020 Encounter Details Date Type Department Care Team (Late st Contact Info) Description 12/29/2020 Refill [facility] General Internal Medicine [address] [place] [address], [place] [address] Rosalee Cano MD [address] [place] [address] OF [facility] [place] [address] MEDICATION REFILL Social History Tobacco Use Types [...] Telephone Encounter - Lucia Perry RN - 12/29/2020 11:18 AM CDT Refill Request Mauricio Flores NEREIDA: 08/11/20 (umer) NOV scheduled: 01/05/2021 (arley) LRF: 12/12/19 Qty Disp: 180 # of refills: 2 Allergies: Allergies Allergen Reactions ??? Hydrocodone-Acetaminophen Rash Vicodin ??? Warren Itching Pended Medication Order: Requested Prescriptions Pending Prescriptions Disp Refills ??? glipiZIDE (GLUCOTROL) 5 MG tablet 180 tablet 2 Sig: Take 1 (one) tablet by mouth 2 times daily, before breakfast and supper documented in this encounter Plan of Treatment Upcoming Encounters Date Type Department Care Team (Late st Contact Info) Description 12/15/2024 1:00 PM CDT Office Visit [facility] - Internal Med [address] [facility], [place] [phone] Neil Velasquez MD [address] [facility] [place] [address] documented as of this encounter Visit Diagnoses Diagnosis 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) Type II or unspecified type diabetes mellitus with unspecified complication, not stated as uncontrolled documented in this encounter Care Teams Pourer Bull Ladle Relationship Specialty Start Date End Date Rosalee Cano MD [address] [facility] [address] DIV OF [facility] [place] [address] PCP - General 12/10/20 04/12/21 documented as of this encounter
--- OUTSIDE RECORDS SUMMARY | 2024-08-02 10:01 | XMS_ITS | Encounter Summary ---
Author Organization [facility] Health Address [address] [facility] [place] [address] Care Team Providers Care Welfare Eligibility Interviewer Name Role Phone Unavailable Primary Care Provider Unavailabl e Reason for Referral * Radiology Services (Routine) - Closed Specialty Diagnoses / Procedures Referred By Jimmy schaeffer Referred To Contact Ultrasound Diagnoses Enlarged thyroid Procedures US THYROID Catherine Salmeron APRN-CNP [address] [place] [address] [address] Referral ID Status Reason Start Date Expiration Date Visits Re quested Visits Authorized [id number] Closed 07/14/2019 01/10/2020 1 1 UTIVE ADMIN Encounter Details Date Type Department Care Team (Late st Contact Info) Description 07/14/2019 12:40 PM EXECUTIVE ADMIN Office Visit 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); Nephropathy; Enlarged thyroid; Pericardial cyst (HCC); Personal history of transient ischemic attack (TIA), and cerebral infarction without residual deficits; Hyperlipidemia, unspecified hyperlipidemia type; Class 3 severe obesity with serious comorbidity and body mass index (BMI) of 45.0 to 49.9 in adult, unspecified obesity type (HCC); Microcytosis; Healthcare maintenance Social History Tobacco Use [...] Sign Reading Time Taken Comments Blood Pressure 180/100 07/14/2019 12:34 PM EXECUTIVE ADMIN Pulse 60 07/14/2019 12:34 PM EXECUTIVE ADMIN Temperature 36.3 ??C (97.4 ??F) 07/14/2019 12:[address] Respiratory Rate - - Oxygen Saturation - - Inhaled Oxygen Concentration - - Weight 133.8 kg (295 lb) 07/14/2019 12:34 PM EXECUTIVE ADMIN Height - - Body Mass Index 49.09 05/30/2019 4:53 PM CDT documented in this encounter Progress Notes * Catherine Young, BECCA-BEAUTICIAN APPRENTICE - 07/14/2019 12:40 PM CST Internal Medicine Primary Care Progress Note CC: Follow up. HPI/Interval History: Mauricio Larios is a 54 year old female presenting for DM2 and HTN follow up. Patient lastseen in [facility] on 06/23/19. Abnormal pap. -Followed by outside THEATRICAL DRESSER. -Reports she had procedure completed, unknown, but that she was told everything came back ok. -Denies abnormal vaginal bleeding. HTN. -Meds: lisinopril 40mg daily, carvedilol 25mg BID. -ECHO with grade 1 diastolic dysfunction. Does not want to be on diuretic due to urinary frequency.Also thinks amlodipine caused urinary frequency. -Checking BP intermittently: 140s/80s. -Denies chest pain, palpitations, SOB, headaches, vision changes. -Increased stress, as is in the hospital for surgery. DM2. -A1C=9.2%, 05/2019. -Medication: Switched off metformin at last visit to glipizide 5mg BID due to diarrhea. Reports sheis taking glipizide and no longer with diarrhea. -Not checking sugars at home. -Statin:Atorvastatin 40mg nightly. -Eye exam:05/2019-concern for retinopathy. -Foot exam: 11/2018. -Microalbumin/creatinine ratio: Elevated 2018. Followed by nephrology but did not keep last appointment. Enlarged thyroid. -Noted at last visit. Past Medical History 07/14/2019: Reviewed and Updated; see Epic History tab for details Past Surgical History 07/14/2019: Reviewed and Updated; see Epic History tab for details Social History 07/14/2019: Reviewed and Updated; see Epic History tab for details Family History 07/14/2019: Reviewed and Updated; see Epic History tab for details Current Medications: Reviewed and up to date in [facility] Medication tab Current Outpatient Medications Medication Sig [...] STRIPS) STRP Use 1 strip TID. ??? Glucose Blood (BLOOD GLUCOSE TEST STRIPS) [...] Allergen Reactions ??? Hydrocodone-Acetaminophen Rash Vicodin ??? [place] Itching Review of Systems: Gen: Denies fevers, chills Eyes: Denies change in vision Ears, Nose, Mouth, Throat: Denies change in hearing; denies rhinorrhea, nasal pain; denies dysphagia CV: Denies chest pain, palpitations Resp: Denies SOB GI: Denies abd pain, n/v/d, constipation, melana, BRBPR : Denies dysuria, hematuria, urinary frequency, urinary urgency Neuro: Denies focal weakness, LOC Psych: Reporting stress related to 's illness Physical Exam: BP 180/100 Pulse 60 Temp 97.4 ??F (36.3 ??C) (Oral) Wt 295 lb (133.8 kg) BMI 49.09 kg/m2 Gen: NAD, conversational, pleasant, cooperative Eyes: EOMI; anicteric, non-injected sclerae Lymph: No supraclavicular, submadibular, cervical LAD Neck: Thyromegaly present CV: Normal S1, S2; RRR; no MRGs appreciated; 2+ radial pulses bilaterally; no LE edema Pulm: CTAB; no wheezes or crackles GI: Abd soft, NT to palpation; obese, no guarding or rebound Neuro: No focal neurologic deficits Psych: AOx3; calm, tearful affect Preventative Care/Health Maintenance: - Cervical cancer [...] Lipid screening (>45 unless additional risk factors): 11/2018.?? - Statin (mod/high intensity if clinical ASCVD, LDL>190, age 40-75 +DM &??LDL 70-189, or 10yr risk >7.5%):??Currently on statin therapy.?? - Diabetes screening (BP>135/80, HLD, obesity):??06/2019=9.2%. - HIV (once, or annually if high risk): Declined at visit 11/19/18. - HepC (once if patient born between 1335-5247): 08/2014. - ASA ppx (>3% 5yr risk): Currently on daily ASA. - Depression screening: PHQ9??06/23/2019=0. -Obesity/physical activity/diet counseling: Body mass index is 49.09 kg/m??. - Immunizations ?- Influenza: Due.??Declined at visit 06/23/19 ?- HPV (<26): NA ?- Prevnar (>65 if PPSV23 naive, or at least 1 year after PPSV23): Due at age 65. ?- Pneumovax (>65 unless risk factors, 6-12mos after Prevnar): Reports she has had in the past. Declines re- vaccination at visit 11/19/18. ?- Tdap/Td ([id number]): 11/19/18. ?- Zoster (>60): Due at age 60. Labs: Personally reviewed. Assessment and Plan: 1. Abnormal cervical Papanicolaou smear, unspecified abnormal pap finding -Followed by outside THEATRICAL DRESSER. -Reports had procedure/testing and was told everything was normal. -Continued surveillance per THEATRICAL DRESSER. 2. Essential hypertension -BP above goal. -Asymptomatic, but recent stress with needing surgery and concern that she will lose her insurance. -Refilled lisinopril (PRINIVIL; ZESTRIL) 40 MG tablet; Take 1 tablet by mouth once daily Dispense: 90 tablet; Refill: 1 -continue carvedilol 25mg BID. -Start hydrALAZINE (APRESOLINE) 25 MG tablet; Take 1 tablet by mouth 2 times daily FOR BLOOD PRESSURE Dispense: 180 tablet; Refill: 0 -Declined BP check in 2 week. -To notify provider of BPs 150+ systolic or 90+ diastolic. 3. Type 2 diabetes mellitus with complications -A1C=9.2%, 05/2019. -Medication: Switched off metformin at last visit to glipizide 5mg BID due to diarrhea. Reports sheis taking glipizide and no longer with diarrhea. To continue BID glipizide. -Statin: Atorvastatin 40mg nightly. -Eye exam:05/2019-concern for retinopathy. -Foot exam: 11/2018. -Microalbumin/creatinine ratio: Elevated 2019. - HEMOGLOBIN A1C; Future-Complete prior to next visit. 4. Nephropathy -Missed last nephrology appointment. Discussed importance of follow up. - MICROALB/CREAT RATIO URINE RANDOM PANEL; Future - URINALYSIS REFLEX TO MICROSCOPIC NO CULTURE; Future 5. Enlarged thyroid - TSH; Future - T4 FREE; Future - US THYROID; Future 6. Pericardial cyst -Noted on outside imaging. -ECHO 06/2019 without cyst noted. -Repeat ECHO in the future. 7. Personal history of transient ischemic attack (TIA), and cerebral infarction without residual deficits -Continue daily ASA and statin therapy. 8. Hyperlipidemia, unspecified hyperlipidemia type 9. Class 3 severe obesity with serious comorbidity and body mass index (BMI) of 45.0 to 49.9 in adult, unspecified obesity type -Body mass index is 49.09 kg/m??. Wt Readings from Last 3 Encounters: 07/14/19 295 lb (133.8 kg) 06/23/19 290 lb (131.5 kg) 05/30/19 288 lb (130.6 kg) - LIPID PROFILE; Future 10. Microcytosis -Anemia improved on iron, but still microcytic. -?related to kidneys vs thalassemia. - PROTEIN ELECTROPHORESIS BLOOD; Future - IRON + TIBC + FERRITIN -Continue iron for now. 11. Healthcare maintenance -As above. Patient to RTC in 2 months. Call with any questions or concerns in the interim. GIANNA Fritz UTIVE ADMIN documented in this encounter Plan of Treatment Upcoming Encounters Date Type Department Care Team (Late st Contact Info) Description 12/15/2024 1:00 PM CDT Office Visit [facility] - Internal Med [address] [facility], [place] [phone] Neil Velasquez MD [address] [facility] [place] [address] Scheduled Orders Name Type Priority Associated Diagnoses Orde r Schedule IRON + TIBC + FERRITIN Lab Routine Microcytosis Ordered: 07/14/2019 documented as of this encounter Results * US THYROID (09/25/2019 1:00 PM EXECUTIVE ADMIN) Anatomical Region Laterality Modality Chest Ultrasound 09/25/2019 1:19 PM EXECUTIVE ADMIN Impressions 09/25/2019 3:31 PM EXECUTIVE ADMIN IMPRESSION: Normal thyroid sonogram without suspicious thyroid nodules based on TI-RADS criteria. Dictated by Santhosh Aleman MD (student services vice president). This report was approved ??by Santhosh Aleman M.D. ?? on 09/25/2019 3:05 PM . I, Dr. ETHEL CHAUDHARI have personally reviewed and interpreted this examination/study. This report was electronically signed by ETHEL CHAUDHARI ??on 09/25/2019 3:31 PM . Narrative 09/25/2019 3:31 PM EXECUTIVE ADMIN EXAMINATION: Thyroid sonogram HISTORY: E04.9: Enlarged thyroid [...] TI-RADS criteria. Dictated by Santhosh Aleman MD (student services vice president). This report was approved by Santhosh Aleman M.D. on 09/25/2019 3:05 PM. I, Dr. ETHEL CHAUDHARI have personally reviewed and interpreted this examination/study. This report was electronically signed by ETHEL CHAUDHARI on 09/25/20193:31 PM . Catherine Salmeron SLAT BASKET MAKER MACHINE-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
--- OUTSIDE RECORDS SUMMARY | 2024-08-02 10:01 | XMS_ITS | Encounter Summary ---
Author Organization [facility] Health Address [address] [facility] [place] [address] Care Team Providers Care Shared Services Manager Name Role Phone Unavailable Primary Care Provider Unavailabl e Reason for Visit * Reason Onset Date Comments MEDICATION REFILL 02/11/2020 Encounter Details Date Type Department Care Team (Late st Contact Info) Description 02/11/2020 Refill [facility] Internal Medicine [address] [address] Catherine Salmeron, SHIPS OR BARGES LOADER-[facility] [address] OF [facility] [place] [address] MEDICATION REFILL Social History Tobacco Use Types [...] Encounter - Hedy Zhang MA - 02/11/2020 10:28 AM CDT Refill Request Mauricio Larios NEREIDA: 09-15-19 NOV scheduled: none LRF: 11-20-19 Qty Disp: 90 # of refills: 4 Allergies: Allergies Allergen Reactions ??? Hydrocodone-Acetaminophen Rash Vicodin ??? [place] Itching Pended Medication Order: Requested Prescriptions Pending Prescriptions Disp Refills ??? atorvastatin (LIPITOR) 40 MG tablet 90 tablet 4 Sig: Take 1 tablet by mouth at bedtime documented in this encounter Plan of Treatment Upcoming Encounters Date Type Department Care Team (Late st Contact Info) Description 12/15/2024 1:00 PM CDT Office Visit [facility] - Internal Med [address] [facility] [place] [phone] Neil Velasquez MD [address] [facility]?? [place] [address] documented as of this encounter Visit Diagnoses Diagnosis Type 2 diabetes mellitus with complication, without long-term current use of insulin (HCC) Hyperlipidemia, unspecified hyperlipidemia type documented in this encounter
--- OUTSIDE RECORDS SUMMARY | 2024-08-02 10:01 | XMS_ITS | Encounter Summary ---
Author Organization [facility] Health Address [address] [facility] [place] [address] Care Team Providers Care Bulk Plant Operator Name Role Phone Unavailable Primary Care Provider Unavailabl e Encounter Details Date Type Department Care Team (Latest Contact Info) Description 06/07/2020 11:00 AM CDT Clinical Support [facility] General Internal Medicine [address] [facility] [place] [address] Essential hypertension Social History Tobacco Use Types [...] Sign Reading Time Taken Comments Blood Pressure 150/86 06/07/2020 11:09 AM CDT Pulse 60 06/07/2020 11:09 AM CDT Temperature - - Respiratory Rate - - Oxygen Saturation 97% 06/07/2020 11:09 AM CDT Inhaled Oxygen Concentration - - Weight - - Height - - Body Mass Index - - documented in this encounter Progress Notes * Gus Rogers - 06/07/2020 11:11 AM CDT Pt came in for b/p check left arm sitting 150/86 Repoerted to JessicaFaviola Was said to continue her meds as prescribed documented in this encounter Plan of Treatment Upcoming Encounters Date Type Department Care Team (Late st Contact Info) Description 12/15/2024 1:00 PM CDT Office Visit [facility] - [facility] Med [address] [facility], [place] [address] Neil Velasquez MD [address] [facility] [place] [address] documented as of this encounter Visit Diagnoses Diagnosis Essential hypertension- Primary documented in this encounter
--- OUTSIDE RECORDS SUMMARY | 2024-08-02 10:01 | XMS_ITS | Encounter Summary ---
Author Organization [facility] Health Address [address] [place] [address] Care Team Providers Care [employer] Officer Name Role Phone Unavailable Primary Care Provider Unavailabl e Reason for Visit * Reason Onset Date Comments MEDICATION REFILL 02/19/2020 Encounter Details Date Type Department Care Team (Late st Contact Info) Description 02/19/2020 Refill [facility] [address] [address] Catherine Salmeron, HOST HOSTESS-[facility] [address] OF [facility] [place] [address] MEDICATION REFILL Social History Tobacco Use Types [...] * Telephone Encounter - Laura Kern - 02/19/2020 10:33 AM CDT Refill Request Mauricio Larios NEREIDA: 09/29/19 NOV due: 01/19/20 NOV scheduled: NONE LRF: 11/21/19 Qty Disp: 180 # of refills: 0 Allergies: Allergies Allergen Reactions ??? Hydrocodone-Acetaminophen Rash Vicodin ??? [place] Itching Pended Medication Order: Requested Prescriptions Pending [...] [facility] Med [address] [facility], [place] [address] Neil Velasquez MD [address] [facility]?? [place] [address] documented as of this encounter Visit Diagnoses Diagnosis Essential hypertension documented in this encounter
--- OUTSIDE RECORDS SUMMARY | 2024-08-02 10:01 | XMS_ITS | Encounter Summary ---
Author Organization [facility] Health Address [address] [place] [address] Care Team Providers Care Urology Teacher Name Role Phone Unavailable Primary Care Provider Unavailabl e Reason for Visit * Reason Onset Date Comments MEDICATION REFILL 09/17/2019 Encounter Details Date Type Department Care Team (Late st Contact Info) Description 09/17/2019 Refill [facility] [address] [address] Catherine Salmeron, STUDENT SUPPORT ADVISOR-[facility] [address] OF [facility] [place] [address] MEDICATION REFILL Social History Tobacco Use Types [...] * Telephone Encounter - Ebony Mabry - 09/17/2019 4:34 PM CST Refill request sent per protocol to provider NEREIDA 09-15-19 NOV 01-19-20 NG REPAIRER documented in this encounter Plan of Treatment Upcoming Encounters Date Type Department Care Team (Late st Contact Info) Description 12/15/2024 1:00 PM CDT Office Visit [facility] - Internal Med [address] [facility], [place] [address] Neil Velasquez MD [address] [facility] 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
--- OUTSIDE RECORDS SUMMARY | 2024-08-02 10:01 | XMS_ITS | Encounter Summary ---
Author Organization [facility] Health Address [address] [facility] [place] [address] Care Team Providers Care Textile Finisher Name Role Phone Unavailable Primary Care Provider Unavailabl e Reason for Visit * Reason Onset Date Comments Results 09/08/2019 Encounter Details Date Type Department Care Team (Late st Contact Info) Description 09/08/2019 Telephone [facility] [address] [address] Catherine Salmeron, BECCA-KAYLIN [address] OF [facility] [place] [address] Results Social History Tobacco Use Types Packs/Day [...] Telephone Encounter - Catherine Young APRN-CNP - 09/08/2019 9:12 AM RN SOCIAL WORK Called to review lab results: -Anemia profile WDL. -Lipids WDL. To continue atovastatin. -A1C of 7.8%. Improving. To continue current medications. -CBC with mild microcytosis, but without anemia. -UA with protein. Needs to follow up with nephrology, encouraged to schedule. Verbalized understanding. GIANNA Fritz SOCIAL WORK documented in this encounter Plan of Treatment Upcoming Encounters Date Type Department Care Team (Late st Contact Info) Description 12/15/2024 1:00 PM CDT Office Visit [facility] - Internal Med [address] [facility] [place] [phone] Neil Velasquez MD [address] [facility] [place] [address] documented as of this encounter Visit Diagnoses Not on filedocumented in this encounter
--- OUTSIDE RECORDS SUMMARY | 2024-08-02 10:01 | XMS_ITS | Encounter Summary ---
Author Organization [facility] Health Address [address] [facility] [place] [address] Care Team Providers Care Wine Pasteurizer Name Role Phone Unavailable Primary Care Provider Unavailabl e Encounter Details Date Type Department Care Team (Late Contact Info) Description 05/14/2019 Orders Only [facility] General Internal Medicine [address] [address] Catherine Salmeron, MANAGER INTERNET-TAPPER BALANCE WHEEL SCREW [employer]LE [address] [place] [address] OF [facility] [place] [address] Type 2 diabetes mellitus with other diabetic kidney complication, without long-term current use of insulin (HCC) Social History Tobacco Use Types Packs/Day [...] Description 12/15/2024 1:00 PM CDT Office Visit [facility] - Internal Med [address] [facility], [place] [phone] Neil Velasquez MD [address] [facility] [place] [address] documented as of this encounter Procedures Procedure Name Priority Date/Time Associated Diagnosis Comments HEMOGLOBIN A1C 06/04/2019 9:31 AM CDT CBC W/O DIFFERENTIAL 06/04/2019 9:31 AM CDT BASIC METABOLIC PANEL (CALCIUM TOTAL) 06/04/2019 9:31 AM CDT IRON + TIBC PANEL 06/04/2019 9:3 1 AM CDT documented in this encounter Results * (ABNORMAL) HEMOGLOBIN A1C (06/04/2019 9:31 AM CDT) Hemoglobin A1c 9.2(H) <5.7 % of total Hgb [facility] Comment: [...] of diabetes for children. ?? REPORT COMMENT: AN UPDATE OR CORRECTION HAS BEEN MADE TO NAME Test Performed at: [facility] [address] ??[phone] KATHY PEREZ DO,MPH 06/04/2019 9:31 AM CDT 06/04/2019 9:32 AM CDT Catherine Salmeron MANAGER INTERNET-TAPPER [employer]ANCE [employer] [facility] - CHEMISTRY ORDERABLES [facility] [address] [place] [address] * (ABNORMAL) CBC W/O DIFFERENTIAL (06/04/2019 9:31 AM CDT) White Blood Cell Count 6.1 3.8 - 10.8 Thousand/u L [facility] RBC 5.27(H) 3.80 - 5.10 Million/uL [facility] Hemoglobin 13.1 11.7 - 15.5 g/dL [facility] Hematocrit 42.9 35.0 - 45.0 % [facility] MCV 81.4 80.0 - 100.0 fL [facility] MCH 24.9(L) 27.0 - 33.0 pg [facility] MCHC 30.5(L) 32.0 - 36.0 g/dL [facility] RDW 16.3(H) 11.0 - 15.0 % [facility] Platelet Count 283 140 - 400 Thousand/u L [facility] MPV 11.0 7.5 - 12.5 fL [facility] Comment: REPORT COMMENT: AN UPDATE OR CORRECTION HAS BEEN MADE TO NAME Test Performed at: [facility] [address] [place], [place] ??[phone] KATHY PEREZ DO,MPH 06/04/2019 9:31 AM CDT 06/04/2019 9:32 AM CDT Catherine Salmeron MANAGER INTERNET-TAPPER BALANCE [employer] [facility] [facility] - HEMATOLOGY ORDERABLES [facility] [address] [place] [address] * (ABNORMAL) BASIC METABOLIC PANEL (CALCIUM TOTAL) (06/04/2019 9:31 AM CDT) Glucose 203(H) 65 - 99 mg/dL [facility] Comment: ? Fasting reference interval For someone without known diabetes, a glucose value >125 mg/dL indicates that they may have diabetes and this should be confirmed with a follow-up test. BUN 14 7 - 25 mg/dL [facility] Creatinine 0.99 0.50 - 1.05 mg/dL [facility] Comment: For patients >49 years of age, the reference limit for Creatinine is approximately 13% higher for people identified as -Luxembourger. eGFR by MDRD 65 > OR = 60 mL/min/1 .73m2 [facility] eGFR by MDRD 75 > OR = 60 mL/min/1 .73m2 [facility] BUN/Creatinine Ratio NOT APPLICABLE 6 - 22 (calc) [facility] Sodium 141 135 - 146 mmol/L [facility] Potassium 4.1 3.5 - 5.3 mmol/L [facility] Chloride 104 98 - 110 mmol/L [facility] CO2 30 20 - 32 mmol/L [facility] Calcium 9.3 8.6 - 10.4 mg/dL [facility] Comment: Test Performed at: [facility] [address] [place], [place] ??[phone] KATHY PEREZ DO,MPH 06/04/2019 9:31 AM CDT 06/04/2019 9:32 AM CDT Catherine Salmeron MANAGER INTERNET-TAPPER BALANCE [employer] LAB - CHEMISTRY ORDERABLES Performing Organization Address [facility] de Phone Number [facility] [address] [place] [address] * IRON + TIBC PANEL (06/04/2019 9:31 AM CDT) Iron 75 45 - 160 mcg/dL [facility] TIBC 318 250 - 450 mcg/dL (calc) [facility] % Saturation 24 16 - 45 % (calc) [facility] Comment: Test Performed at: [facility] [address] [place], [place] ??[phone] KATHY PEREZ DO,MPH 06/04/2019 9:31 AM CDT 06/04/2019 9:32 AM CDT Catherine Salmeron APRN-TAPPER BALANCE WHEEL [employer] LAB - CHEMISTRY ORDERABLES Performing Organization Address [facility] de Phone Number [facility] [address] [place] [address] documented in this encounter Visit Diagnoses Diagnosis Type 2 diabetes mellitus with other diabetic kidney complication, without long- term current use of insulin (HCC)- Primary documented in this encounter
--- OUTSIDE RECORDS SUMMARY | 2024-08-02 10:01 | XMS_ITS | Encounter Summary ---
Author Organization [facility] Health Address [address] [facility] [place] [address] Care Team Providers Care Vehicle Detailer Name Role Phone Unavailable Primary Care Provider Unavailabl e Reason for Visit * Reason Onset Date Comments MEDICATION REFILL 12/08/2020 Encounter Details Date Type Department Care Team (Late st Contact Info) Description 12/08/2020 Refill [facility] [address] [facility], [place] [phone] Catherine Salmeron, ADOPTION COORDINATOR-GOLF BALL INSPECTOR [address] [place] [address] [address]L DIV OF [facility] [place] [address] MEDICATION REFILL Social History Tobacco Use Types [...] Telephone Encounter - Suad Ingram RN - 12/08/2020 10:04 AM CDT Refill Request Mauricio Flores NEREIDA: 08/11/20 NOV scheduled: 01/05/21 LRF: 11/14/20 Qty Disp: 90 # of refills: 0 Allergies: Allergies Allergen Reactions ??? Hydrocodone-Acetaminophen Rash Vicodin ??? [place] Itching Pended Medication Order: Requested Prescriptions Pending Prescriptions Disp Refills ??? hydrALAZINE (APRESOLINE) 50 MG tablet 90 tablet 0 Sig: Take 1 (one) tablet by mouth 3 times daily documented in this encounter Plan of Treatment Upcoming Encounters Date Type Department Care Team (Late st Contact Info) Description 12/15/2024 1:00 PM CDT Office Visit [facility] - Internal Med [address] [facility] [place] [address] Neil Velasquez MD [address] [facility] [place] [address] documented as of this encounter Visit Diagnoses Diagnosis Essential hypertension documented in this encounter
--- OUTSIDE RECORDS SUMMARY | 2024-08-02 10:01 | XMS_ITS | Encounter Summary ---
Author Organization [facility] Health Address [address] [facility] [place] [address] Care Team Providers Care Rig Hand Name Role Phone Unavailable Primary Care Provider Unavailabl e Encounter Details Date Type Department Care Team (Late Contact Info) Description 11/29/2020 Orders Only [facility] [address] [place] [address] Suki Acuna, LAST Social History Tobacco Use Types Packs/Day Years [...] [facility] Med [address] [facility] [place] [address] Neil Velasquez MD [address] [facility] [place] [address] documented as of this encounter Visit Diagnoses Not on filedocumented in this encounter
--- OUTSIDE RECORDS SUMMARY | 2024-08-02 10:01 | XMS_ITS | Encounter Summary ---
Author Organization [facility] Health Address [address] [facility] [place] [address] Care Team Providers Care Transportation Coordinator Name Role Phone Unavailable Primary Care Provider Unavailabl e Reason for Referral * Radiology Services (Routine) - Closed Specialty Diagnoses / Procedures Referred By Jimmy schaeffer Referred To Contact Echosonography Diagnoses Nonspecific abnormal electrocardiogram (ECG) (EKG) Procedures ECHO STRESS TEST W EXERCISE Catherine Salmeron APRN-CNP [address] [facility] [address]L DIV [place] [facility] [address] [facility] Echo [address] [place] [address] Referral ID Status Reason Start Date Expiration Date Visits Re quested Visits Authorized [id number] Closed 06/11/2020 06/11/2021 1 1 Reason for Visit * Radiology Services (Routine) - Closed Specialty Diagnoses / Procedures Referred By Contluis angel schaeffer Referred To Contact Echosonography Diagnoses Nonspecific abnormal electrocardiogram (ECG) (EKG) Procedures ECHO STRESS TEST W EXERCISE Catherine Salmeron APRN-CNP [address] [address] [facility] Echo [address] [place] [address] Referral ID Status Reason Start Date Expiration Date Visits Re quested Visits Authorized [id number] Closed 06/11/2020 06/11/2021 1 1 Encounter Details Date Type Department Care Team (Latest Contact Info) Description 06/09/2020 9:46 AM CDT - 06/09/2020 11:59 PM CDT Hospital Encounter [facility] ECHO [address] [place] [phone] Catherine Salmeron, VETERINARIAN-NEON INSTALLER [address] [facility] [address] [facility] [place] [address] Discharge Disposition: Home or Self Care Social [...] Sign Reading Time Taken Comments Blood Pressure 189/79 06/09/2020 11:47 AM CDT Pulse 67 06/09/2020 11:47 AM CDT Temperature - - Respiratory Rate 20 06/09/2020 10:57 AM CDT Oxygen Saturation - - Inhaled Oxygen Concentration - - Weight 130.2 kg (287 lb) 06/09/2020 10:57 AM CDT Height 167.6 cm (5' 6 ) 06/09/2020 10:57 AM CDT Body Mass Index 46.32 06/09/2020 10:57 AM CDT documented in this encounter Medications at Time [...] tabletIndications:Hyperl ipidemia, unspecified hyperlipidemia type Take 1 tablet by mouth at bedtime 90 tablet 05/12/2020 08/30/2020 Blood Glucose Monitoring Suppl (ACCU-CHEK GUIDE) w/Device KIT 12/17/2018 03/14/2023 carvedilol (COREG) 25 MG tablet Take 25 mg by mouth 2 times daily with morning and evening meal 06/29/2020 ferrous sulfate 325 (65 FE) MG tabletIndications:Iron deficiency anemia, unspecified iron deficiency anemia type Take 1 tablet by mouth 2 times daily with morning and evening meal 60 tablet 4 07/29/2019 01/05/2021 glipiZIDE (GLUCOTROL) 5 MG tabletIndications: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 Okay to discharge the patient per Dr. Porfirio Akhtar, Town Marshal. Patient has no complaints. Denies chest pain and SOB. * Niya Bryant, LAST - 06/08/2020 4:40 PM CDTProcedure(s): ECHO STRESS W EXERCISE Reminder call placed to pt regarding upcoming echo appointment.Pt instructed :Please register in out pt registration 30 mins prior to your first scheduled appointment, Do not eat or drink anything after MN tonight, take all of your morning medications as usual with a sip of water, and brief explanation of procedure given to include length of procedure. Pt also instructed that she would have to exercise with a mask on. Stated she has been having a lot of SOB after she smelled something burnt in the microwave. Stated SOB is worse when she bends forward. Will evaluate prior to stress test. Pt COVID screened. documented in this encounter Plan of Treatment Upcoming Encounters Date Type Department Care Team (Late st Contact Info) Description 12/15/2024 1:00 PM CDT Office Visit [facility] - Internal Med [address] [facility] [place] [phone] Neil Velasquez MD [address] [facility] [place] [address] documented as of this encounter Procedures Procedure Name Priority Date/Time Associated Diagnosis Comments CARDIAC EKG ORDER 06/17/2020 7:4 7 AM MATERIAL CONTROL SPECIALIST ECHO STRESS W EXERCISE Routine 06/09/2020 12:53 PM CDT Nonspecific abnormal electrocardiogram (ECG) (EKG) documented in this encounter Results * CARDIAC EKG ORDER (06/17/2020 7:47 AM MATERIAL CONTROL SPECIALIST) Narrative 06/17/2020 7:47 AM MATERIAL CONTROL SPECIALIST Ordered by an unspecified provider. Scanned Document CARDIAC SERVICES ORD ERABLES * ECHO STRESS TEST W EXERCISE (06/09/2020 12:53 PM CDT) Anatomical Region Laterality Modality Chest Echo 06/09/2020 10:2 2 AM CDT Narrative Procedure Note Ebony Tucker MD - 06/09/2020 Catherine Salmeron VETERINARIAN-NEON INSTALLER ECHOCARDIOGRAPHY RADIANT documented in this encounter Visit Diagnoses Diagnosis Nonspecific abnormal electrocardiogram (ECG) (EKG) documented in this encounter Administered Medications Inactive Administered Medications - up to 3 most recent administrations Medication Order MAR Action Action Date Dose Rate Site perflutren Lipid Microsphere (DEFINITY) injection SUSP 0.5 mL 0.5 mL, Intravenous, INTRA-PROCEDURE MULTIPLE, 6 doses, Starting on Sun06/09/20 at 1223, Until Danielle 06/10/20 at 0133, For Echo Procedure - Per Protocol Give slowly Shake well before using. $ Given 06/09/2020 11:39 AM CDT 0.5 mL $ Given 06/09/2020 11:15 AM CDT 0.5 mL documented in this encounter
--- OUTSIDE RECORDS SUMMARY | 2024-08-02 10:01 | XMS_ITS | Encounter Summary ---
Author Organization [facility] Health Address [address] [facility] [place] [address] Care Team Providers Care Chief Cruiser Name Role Phone Unavailable Primary Care Provider Unavailabl e Reason for Visit * Reason Onset Date Comments Numbness 10/04/2020 Encounter Details Date Type Department Care Team (Late st Contact Info) Description 10/04/2020 Telephone [facility] [address] [facility], [place] [phone] Catherine Salmeron, LICENSE DISTRIBUTOR-HOME ENERGY RATER [address] [place] [address] DIV OF [facility] [address] Numbness Social History Tobacco Use Types Packs/Day Years [...] Telephone Encounter - Chris Roche RN - 10/04/2020 10:42 AM CST Pt called d/t having numbness in her foot which is a new concerns for her in the last three days. Acute care apt offered and pt transferred to scheduling. ER AND BREAKER documented in this encounter Plan of Treatment Upcoming Encounters Date Type Department Care Team (Late st Contact Info) Description 12/15/2024 1:00 PM CDT Office Visit [facility] - [facility] Med [address] [facility], [place] [address] Neil Velasquez MD [address] [facility] [place] [address] documented as of this encounter Visit Diagnoses Not on filedocumented in this encounter
--- OUTSIDE RECORDS SUMMARY | 2024-08-02 10:01 | XMS_ITS | Encounter Summary ---
Author Organization [facility] Health Address [address] [place] [address] Care Team Providers Care It Consulting Director Name Role Phone Unavailable Primary Care Provider Unavailabl e Reason for Visit * Radiology Services (Routine) - Closed Specialty Diagnoses / Procedures Referred By Jimmy schaeffer Referred To Contact Echosonography Diagnoses Pericardial cyst (HCC) Procedures ECHO COMPLETE Catherine Salmeron, LEASES AND LAND SUPERVISOR-OFF PREMISE SERVICE REPRESENTATIVE [address] [place] [address] [facility] Echo [address] [place] [address] Referral ID Status Reason Start Date Expiration Date Visits Re quested Visits Authorized [id number] Closed 04/16/2019 10/13/2019 1 1 Encounter Details Date Type Department Care Team (Latest Contact Info) Description 06/20/2019 9:59 AM DIRECTOR OF GUIDANCE - 06/20/2019 10:41 AM [facility] Hospital Encounter [facility] ECHO [address] [place] [address] Catherine Salmeron, LEASES AND LAND SUPERVISOR-OFF PREMISE SERVICE REPRESENTATIVE [address] OF [facility] [place] [address] Discharge Disposition: Home or Self Care Social [...] 1:00 PM CDT Office Visit [facility] - Internal Med [address] [facility] [address] [place] [address] Neil Velasquez MD [address] [facility] [place] [address] documented as of this encounter Procedures Procedure Name Priority Date/Time Associated Diagnosis Comments ECHO COMPLETE Routine 06/20/2019 11:15 AM DIRECTOR OF GUIDANCE Pericardial cyst (HCC) documented in this encounter Results * ECHO COMPLETE (06/20/2019 11:15 AM DIRECTOR OF GUIDANCE) Anatomical Region Laterality Modality Echo 06/20/2019 10:0 9 AM DIRECTOR OF GUIDANCE Narrative Procedure Note Ebony Tucker MD - 06/20/2019 Catherine Salmeron LEASES AND LAND SUPERVISOR-OFF PREMISE SERVICE REPRESENTATIVE ECHOCARDIOGRAPHY RADIANT documented in this encounter Visit Diagnoses Not on filedocumented in this encounter
--- OUTSIDE RECORDS SUMMARY | 2024-08-02 10:01 | XMS_ITS | Encounter Summary ---
Author Organization [facility] Health Address [address] [place] [address] Care Team Providers Care Slip Operator Name Role Phone Unavailable Primary Care Provider Unavailabl e Reason for Visit * Reason Comments Hypertension Patient comes to ED for hypertension x6 weeks. H/O HTN. Patient reports she take her HTN meds everyday. Encounter Details Date Type Department Care Team (Late st Contact Info) Description 05/30/2019 5:57 PM CDT - 05/30/2019 8:10 PM CDT Emergency [facility] EMERGENCY DEPARTMENT [address] [place] [id number] Essential hypertension Discharge Disposition: Home or Self [...] Sign Reading Time Taken Comments Blood Pressure 186/70 05/30/2019 7:08 PM CDT Pulse 55 05/30/2019 4:53 PM CDT Temperature 36.5 ??C (97.7 ??F) 05/30/2019 4:53 PM CD T Respiratory Rate 18 05/30/2019 4:53 PM CDT Oxygen Saturation 98% 05/30/2019 4:53 PM CDT Inhaled Oxygen Concentration - - Weight 130.6 kg (288 lb) 05/30/2019 4:53 PM CDT Height 165.1 cm (5' 5 ) 05/30/2019 4:53 PM CDT Body Mass Index 47.93 05/30/2019 4:53 PM CDT documented in this encounter Discharge Instructions * Attachments The following attachments cannot be sent through Care Everywhere. * Hypertension (AfterCare(R) Instructions(ER/ED)) (Dutch) * Mediterranean Diet (General Information) (Dutch) documented in this encounter Medications at Time [...] 11/19/2018 06/23/2019 documented as of this encounter ED Notes * Tish Sr RN - 05/30/2019 8:07 PM CDT Pt is able to be discharged, blood pressure more acceptable, she is to follow up pmd for continuityof care, continue medications * Che Wolfe, AERONAUTICAL ENGINEERING OFFICER-METAL BUILDINGS ASSEMBLER - 05/30/2019 6:02 PM CDT Mauricio Flores [id number] [facility] EMERGENCY DEPARTMENT History Chief Complaint Patient presents with ??? Hypertension Patient comes to ED for hypertension x6 weeks. H/O HTN. Patient reports she take her HTN meds everyday. Mauricio Flores is a 54 year old female with past medical history of HTN, Nephropathy, pericardial cyst and Type 2 DM. Pt reports her blood pressure has been running high for the past 6 weeks. Pt has seen her PCP last on 05/28/2019. Pt reports her pharamcy was out of losartan but was given lisinopril. Pt reports on Sunday the pharmacy had losartan back in stock, so patient had that medication filled. Pt reports did not take lisinopril. Pt states in addition takes amlodipine and coreg. Pt states she has been complaint with her medication. Pt is asymptomatic. She denies headache, dizziness. She denies chest pain, sob, abdominal pain, nausea or vomiting. She denies any visual disturbance. Past Medical History: Diagnosis Date ??? Hypertension ??? Nephropathy ??? Pericardial cyst ??? Type 2 diabetes mellitus Past Surgical History: Procedure Laterality Date ??? Section x2 ??? Cholecystectomy ??? Hernia Repair Family History Problem Relation Age of Onset ??? Diabetes Mother ??? Diabetes Maternal Grandmother ??? Diabetes Paternal Grandmother ??? Cancer Maternal Grandfather ??? Cancer Father ??? Hypertension Sister Social History Socioeconomic History ??? Marital status: Spouse name: Not on file ??? Number of children: 2 ??? Years of education: Not on file ??? Highest education level: Not on file Occupational History ??? Not on file Social Needs ??? Financial resource strain: Not on file ??? Food insecurity: Worry: Not on file Inability: Not on file ??? Transportation needs: Medical: Not on file Non-medical: Not on file Tobacco Use ??? Smoking status: Never Smoker ??? Smokeless tobacco: Never Used Substance and Sexual Activity ??? Alcohol use: Yes Alcohol/week: 1.0 standard drinks Comment: socially ??? Drug use: No ??? Sexual activity: Not on file Lifestyle ??? Physical activity: Days per week: Not on file Minutes per session: Not on file ??? Stress: Not on file Relationships ??? Social connections: Talks on phone: Not on file Gets together: Not on file Attends holiness service: Not on file Active member of club or organization: Not on file Attends meetings of clubs or organizations: Not on file Relationship status: Not on file ??? Intimate partner violence: Fear of current or ex partner: Not on file Emotionally abused: Not on file Physically abused: Not on file Forced sexual activity: Not on file Other Topics Concern ??? Not on file Social History Narrative 2 adult children, 30 and 34. . Stays at home. Review of Systems Review of Systems Constitutional: Negative for fever. HENT: Negative. Eyes: Denies any visual disturbance. Respiratory: Negative for shortness of breath. Cardiovascular: Negative for chest pain, palpitations and leg swelling. Arrives for HTN. Gastrointestinal: Negative for abdominal pain, nausea and vomiting. Genitourinary: Negative. Musculoskeletal: Negative. Skin: Negative. Neurological: Negative for dizziness and headaches. Psychiatric/Behavioral: Negative. Physical Exam BP (!) 186/70 Pulse 55 Temp 97.7 ??F (36.5 ??C) Resp 18 Ht 1.651 m (5' 5 ) Wt 130.6 kg (288 lb) SpO2 98% BMI 47.93 kg/m?? Physical Exam Constitutional: She is oriented to person, place, and time. She appears well- developed and well-nourished. No distress. HENT: Head: Normocephalic and atraumatic. Right Ear: External ear normal. Left Ear: External ear normal. Nose: Nose normal. Mouth/Throat: Oropharynx is clear and moist. No oropharyngeal exudate. Eyes: Pupils are equal, round, and reactive to light. Conjunctivae and EOM are normal. Neck: Normal range of motion. Neck supple. Cardiovascular: Normal rate, regular rhythm and normal heart sounds. Exam reveals no gallop and no friction rub. No murmur heard. Pulmonary/Chest: Effort normal and breath sounds normal. No stridor. No respiratory distress. She has no wheezes. She has no rales. She exhibits no tenderness. Abdominal: Soft. Bowel sounds are normal. She exhibits no distension. There is no tenderness. Pt is obese. Musculoskeletal: Normal range of motion. She exhibits no edema, tenderness or deformity. Neurological: She is alert and oriented to person, place, and time. Skin: Skin is warm and dry. Capillary refill takes less than 2 seconds. Psychiatric: She has a normal mood and affect. Her behavior is normal. Judgment and thought contentnormal. Medications Current Outpatient Medications Medication Sig Dispense Refill ??? amLODIPine (NORVASC) 10 MG tablet Take 1 tablet by mouth once daily 30 tablet 3 ??? aspirin (ASPIRIN) 81 MG tablet 100 tablet ??? atorvastatin (LIPITOR) 40 MG tablet Take 1 tablet by mouth at bedtime 90 tablet 1 ??? Blood Glucose Monitoring Suppl (ACCU-CHEK GUIDE) w/Device KIT ??? carvedilol (COREG) 12.5 MG tablet Take 1 tablet by mouth 2 times daily with morning and eveningmeal (Patient not taking: Reported on 05/30/2019) 180 tablet 0 ??? chlorthalidone (HYGROTON) 25 MG tablet Take 25 mg by mouth 2 times daily ??? ferrous sulfate 325 (65 FE) MG tablet Take 1 tablet by mouth 2 times daily with morning and evening meal 60 tablet 4 ??? Glucose Blood (BLOOD GLUCOSE TEST STRIPS) STRP Use 1 strip TID. 100 strip 11 ??? Glucose Blood (BLOOD GLUCOSE TEST STRIPS) STRP Use 1 strip TID. 100 strip 11 ??? LANCETS SUPER THIN 28G MISC Use TID. 100 11 ??? lisinopril (PRINIVIL; ZESTRIL) 40 MG tablet Take 1 tablet by mouth once daily (Patient not taking: Reported on 05/30/2019) 90 tablet 0 ??? losartan (COZAAR) 100 MG tablet Take 100 mg by mouth once daily ??? metFORMIN ER 24hr (GLUCOPHAGE XR) 500 MG tablet Take 2 tablets by mouth daily with dinner (Patient not taking: Reported on 05/30/2019) 90 tablet 1 Procedures Procedures Lab Interpretation Oxygen Saturation Interpretation The oxygen saturation level is: 98%. The patient was on Room Air for the saturation measurement. Measurement frequency: Spot Check. Oxygen saturation interpretation is Normal. Hospital Encounter on 05/30/19 CBC W AUTO DIFFERENTIAL Result Value Ref Range WBC 6.2 3.5 - 10.5 10??3/uL RBC 5.34 (H) 3.90 - 5.00 10??6/uL Hemoglobin 13.4 12.0 - 15.5 g/dL Hematocrit 43.2 35.0 - 45.0 % MCV 80.9 (L) 81.0 - 97.0 fL MCH 25.1 (L) 28.0 - 34.0 pg MCHC 31.0 (L) 32.0 - 36.0 g/dL Platelet Count 294 150 - 400 10??3/uL RDW-SD 51.8 (H) 36.0 - 50.0 fL RDW-CV 17.6 (H) 11.2 - 14.8 % MPV 10.5 9.3 - 12.8 fL nRBC Absolute 0.00 0 10??3/uL nRBC Auto 0.0 0 /100 WBC Neutrophils % 52.1 35.0 - 70.0 % Lymphocytes % 34.6 19.7 - 55.1 % Monocytes % 9.2 3.0 - 15.0 % Eosinophils % 3.4 0.0 - 6.0 % Basophil % 0.5 0.0 - 1.5 % Neutrophils Absolute 3.3 1.6 - 7.0 10??3/uL Lymphocyte Absolute 2.2 0.8 - 2.9 10??3/uL Monocytes Absolute 0.57 0.14 - 0.66 10??3/uL Eosinophils Absolute 0.21 0.00 - 0.45 10??3/uL Basophils Absolute 0.03 0.00 - 0.06 10??3/uL Immature Granulocytes % 0.2 0.0 - 1.0 % COMPREHENSIVE METABOLIC PANEL Result Value Ref Range BUN 11 7 - 26 mg/dL Creatinine 0.9 0.6 - 1.2 mg/dL Sodium 142 136 - 145 mmol/L Potassium 3.5 3.5 - 4.5 mmol/L Chloride 106 98 - 107 mmol/L CO2 26 22 - 29 mmol/L Glucose 157 (H) 70 - 115 mg/dL Calcium 9.4 8.4 - 10.2 mg/dL Protein Total 7.3 6.0 - 8.3 g/dL Albumin 3.8 3.4 - 5.0 g/dL Bilirubin Total 0.7 0.2 - 1.2 mg/dL Alkaline Phosphatase 122 40 - 150 Units/L ALT 21 0 - 55 Units/L AST 16 5 - 34 Units/L Anion Gap 14 8 - 18 BUN/Creatinine Ratio 12 7 - 23 Osmolality Calculated 297 270 - 300 mOsm/kg Albumin/Globulin Ratio 1.1 1.1 - 2.3 eGFR >60 >60 mL/min/1.73 m2 TROPONIN I Result Value Ref Range Troponin I <0.010 <0.032 ng/mL No orders to display Progress Notes 18:15 Assessed patient. Repeat BP 190/62. Plan for labs and ekg. Dose of coreg. 19:08 Reviewed patient labs. Spoke to patient extensively in regards to diet change, water intake and exercise. Pt verbalized understanding. Repeat BP manual 186/70. Pt remains asymptomtic. Allowed time for questionsand concerns. Patient is medically stable for discharge at this time. ?? I have given the patient instructions regarding his diagnosis, expectations, follow up, and return precautions. I explained to the patient that emergent conditions may arise and to return to the ER for new, worsening, or any persistent conditions. I've explained the importance of following up with PCP as instructed. The patient verbalized understanding of the discharge instructions. ED Course Clinical Impressions as of May 30 2009 Essential hypertension Medical Decision Making I have reviewed the: Previous Chart, Nursing Notes, Vitals. I have interpreted the following results: Labs, 12 Lead EKG (intepreted by Dr Holman.), Oxygen Saturation. Orders Placed This Encounter ??? CBC W AUTO DIFFERENTIAL ??? COMPREHENSIVE METABOLIC PANEL ??? TROPONIN I ??? EKG 12-LEAD ??? carvedilol (COREG) tablet 6.25 mg Follow-up Information Follow-up With Details Why Contact Info Catherine Young APRN-CNP [phone] [facility] [id number] User Date/Time Che WolfeGIANNA SunMay 30, 2019 7:10 PM documented in this encounter Plan of Treatment Upcoming Encounters Date Type Department Care Team (Late st Contact Info) Description 12/15/2024 1:00 PM CDT Office Visit [facility] - Internal Med [address] [facility] [place] [id number] Neil Velasquez MD [address] [facility] [place] [address] Scheduled Orders Name Type Priority Associated Diagnoses Orde r Schedule EKG 12-LEAD ECG Routine Essential hypertension ONCE for 1 Occurrences starting 05/30/2019 until 05/30/2019 documented as of this encounter Procedures Procedure Name Priority Date/Time Associated Diagnosis Comments CARDIAC EKG ORDER 07/09/2019 9:4 1 AM ENTERPRISE PROJECT MANAGER CARDIAC EKG ORDER 05/31/2019 4:2 0 AM CDT TROPONIN I STAT 05/30/2019 6:22 PM CDT CBC W AUTO DIFFERENTIAL STAT 05/30/2019 6:22 PM CDT COMPREHENSIVE METABOLIC PANEL STAT 05/30/2019 6:22 PM CDT documented in this encounter Results * CARDIAC EKG ORDER (07/09/2019 9:41 AM ENTERPRISE PROJECT MANAGER) Narrative 07/09/2019 9:41 AM ENTERPRISE PROJECT MANAGER Ordered by an unspecified provider. Scanned Document CARDIAC SERVICES ORD ERABLES * CARDIAC EKG ORDER (05/31/2019 4:20 AM CDT) Narrative 05/31/2019 4:20 AM CDT Ordered by an unspecified provider. Scanned Document CARDIAC SERVICES ORD ERABLES * TROPONIN I (05/30/2019 6:22 PM CDT) Pathologist [facility] Troponin I <0.010 <0.032 ng/mL 05/30/2019 6:54 PM T [facility] Blood BLOOD SPECIMEN / Unknown Venipuncture / Unknown 05/30/2019 6:22 PM CDT 05/30/2019 6:30 PM CDT Che Wolfe APRN-[facility] - CHEMISTRY OR DERABLES [address] [phone] * (ABNORMAL) COMPREHENSIVE METABOLIC PANEL (05/30/2019 6:22 PM CDT) [facility] BUN 11 7 - 26 mg/dL 05/30/2019 6:51 PM [facility] Creatinine 0.9 0.6 - 1.2 mg/dL 05/30/2019 6:51 PM [facility] Sodium 142 136 - 145 mmol/L 05/30/2019 6:51 PM [facility] Potassium 3.5 3.5 - 4.5 mmol/L 05/30/2019 6:51 PM [facility] Chloride 106 98 - 107 mmol/L 05/30/2019 6:51 PM [facility] CO2 26 22 - 29 mmol/L 05/30/2019 6:51 PM [facility] Glucose 157(H) 70 - 115 mg/dL 05/30/2019 6:51 PM [facility] Calcium 9.4 8.4 - 10.2 mg/dL 05/30/2019 6:51 PM [facility] Protein Total 7.3 6.0 - 8.3 g/dL 05/30/2019 6:51 PM [facility] Albumin 3.8 3.4 - 5.0 g/dL 05/30/2019 6:51 PM [facility] Bilirubin Total 0.7 0.2 - 1.2 mg/dL 05/30/2019 6:51 PM [facility] Alkaline Phosphatase 122 40 - 150 Units/L 05/30/2019 6:51 PM [facility] ALT 21 0 - 55 Units/L 05/30/2019 6:51 PM [facility] AST 16 5 - 34 Units/L 05/30/2019 6:51 PM [facility] Anion Gap 14 8 - 18 05/30/2019 6:51 PM [facility] BUN/Creatinine Ratio 12 7 - 23 05/30/2019 6:51 PM [facility] Osmolality Calculated 297 270 - 300 mOsm/kg 05/30/2019 6:51 PM [facility] Albumin/Globulin Ratio 1.1 1.1 - 2.3 05/30/2019 6:51 PM [facility] eGFR >60 >60 mL/min/1.7 3 m2 05/30/2019 6:51 PM [facility] Blood BLOOD SPECIMEN / Unknown Venipuncture / Unknown 05/30/2019 6:22 PM CDT 05/30/2019 6:30 PM CDT Che Wolfe AERONAUTICAL ENGINEERING OFFICER-METAL BUILDINGS ASSEMBLER LAB - CHEMISTRY OR DERABLES Performing Organization Address City/State/[facility] Co de Phone Number [address] [phone] * (ABNORMAL) CBC W AUTO DIFFERENTIAL (05/30/2019 6:22 PM CDT) WBC 6.2 3.5 - 10.5 10? 3 /uL 05/30/2019 6:33 PM [facility] RBC 5.34(H) 3.90 - 5.00 10? 6 /uL 05/30/2019 6:33 PM [facility] Hemoglobin 13.4 12.0 - 15.5 g/dL 05/30/2019 6:33 PM [facility] Hematocrit 43.2 35.0 - 45.0 % 05/30/2019 6:33 PM [facility] MCV 80.9(L) 81.0 - 97.0 fL 05/30/2019 6:33 PM [facility] MCH 25.1(L) 28.0 - 34.0 pg 05/30/2019 6:33 PM [facility] MCHC 31.0(L) 32.0 - 36.0 g/dL 05/30/2019 6:33 PM [facility] Platelet Count 294 150 - 400 10? 3 /uL 05/30/2019 6:33 PM [facility] RDW-SD 51.8(H) 36.0 - 50.0 fL 05/30/2019 6:33 PM [facility] RDW-CV 17.6(H) 11.2 - 14.8 % 05/30/2019 6:33 PM [facility] MPV 10.5 9.3 - 12.8 fL 05/30/2019 6:33 PM [facility] nRBC Absolute 0.00 0 10? 3 /uL 05/30/2019 6:33 PM [facility] nRBC Auto 0.0 0 /100 WBC 05/30/2019 6:33 PM [facility] Neutrophils % 52.1 35.0 - 70.0 % 05/30/2019 6:33 PM [facility] Lymphocytes % 34.6 19.7 - 55.1 % 05/30/2019 6:33 PM [facility] Monocytes % 9.2 3.0 - 15.0 % 05/30/2019 6:33 PM [facility] Eosinophils % 3.4 0.0 - 6.0 % 05/30/2019 6:33 PM [facility] Basophil % 0.5 0.0 - 1.5 % 05/30/2019 6:33 PM [facility] Neutrophils Absolute 3.3 1.6 - 7.0 10? 3 /uL 05/30/2019 6:33 PM [facility] Lymphocyte Absolute 2.2 0.8 - 2.9 10? 3 /uL 05/30/2019 6:33 PM [facility] Monocytes Absolute 0.57 0.14 - 0.66 10? 3 /uL 05/30/2019 6:33 PM [facility] Eosinophils Absolute 0.21 0.00 - 0.45 10? 3 /uL 05/30/2019 6:33 PM CDT [facility] Basophils Absolute 0.03 0.00 - 0.06 10? 3 /uL 05/30/2019 6:33 PM CDT [facility] Immature Granulocytes % 0.2 0.0 - 1.0 % 05/30/2019 6:33 PM CDT [facility] Blood BLOOD SPECIMEN / Unknown Venipuncture / Unknown 05/30/2019 6:22 PM CDT 05/30/2019 6:30 PM CDT Che Wolfe AERONAUTICAL ENGINEERING OFFICER-METAL BUILDINGS ASSEMBLER LAB - HEMATOLOGY O RDERABLES [facility] [address] [place] [address] documented in this encounter Visit Diagnoses Diagnosis Essential hypertension documented in this encounter Administered Medications Inactive Administered Medications - up to 3 most recent administrations Medication Order MAR Action Action Date Dose Rate Site carvedilol (COREG) tablet 6.25 mg 6.25 mg, Oral, NOW, 1 dose, On Sun05/30/19 at 1800, Take with food $ Given 05/30/2019 6:14 PM CDT 6.25 mg documented in this encounter Active and Recently Administered Medications Times are shown in CDT. Scheduled Medication Order 05/28/2019 05/29/2019 05/30/2019 carvedilol (COREG) tablet 6.25 mg (COMPLETED) 6.25 mg, Oral, NOW, 1 dose, On Sun05/30/19 at 1800, Take with food 1814 ($ Given - Prov ider: Nathaly Russell RN) documented in this encounter
--- OUTSIDE RECORDS SUMMARY | 2024-08-02 10:01 | XMS_ITS | Encounter Summary ---
Author Organization [facility] Health Address [address] [facility] [place] [address] Care Team Providers Care Reclaimer Name Role Phone Rosalee Cano MD Primary Care Provider [phone] Reason for Visit * Reason Comments Establish Care Encounter Details Date Type Department Care Team (Late st Contact Info) Description 01/05/2021 1:30 PM CDT Office Visit 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); Hyperlipidemia, unspecified hyperlipidemia type; Essential hypertension; Microcytosis; Iron deficiency anemia, unspecified iron deficiency anemia type; Preventative health care Social History Tobacco Use [...] Sign Reading Time Taken Comments Blood Pressure 138/72 01/05/2021 1:31 PM CDT Pulse 57 01/05/2021 1:31 PM CDT Temperature 37.1 ??C (98.8 ??F) 01/05/2021 1:31 PM CD T Respiratory Rate - - Oxygen Saturation 97% 01/05/2021 1:31 PM CDT Inhaled Oxygen Concentration - - Weight 126 kg (277 lb 12.8 oz) 01/05/2021 1:31 P M CDT Height 167.6 cm (5' 6 ) 01/05/2021 1:31 PM CDT Body Mass Index 44.84 01/05/2021 1:31 PM CDT documented in this encounter Patient Instructions * Patient Instructions* Bakari Barba - 01/05/2021 1:31 PM CDT ?? Please go see your eye doctor for a diabetes eye exam ?? Please go get your labs done at your earliest convenience ?? Please get your records from [place] and send them to my office when able ?? Start taking your lisinopril at night ?? Start taking your gabapentin (all 300mg) at night ?? I will follow up with you in 1 month ?? Please start taking your medications including aspirin and statin daily [facility] is committed to providing you with the best care possible. We areworking towards becoming a Patient Centered Medical Home (PCMH), a model of care that puts patientsat the forefront of care. PCM Centers build better relationships between patients and [...] for your doctor, the office phone is [phone]. You will be given options to get [...] primary care provider. Please call us at [phone], option 1, then option 1 in the morning you would like to be seen. Our fax number is [phone]. Instructions for reaching the practice after office hours For urgent concerns that cannot wait until phone lines are open on the next business day, please call [phone] to speak to the covering General Internal Medicine provider. Identify yourself as a patient in our practice and give the boat dock operator your doctor's name. The boat dock operator will contact the physician software configuration engineer. You can generally expect a return call within 30 minutes. Prescription Refills Contact your pharmacy to request all refills. You may also send a BlueRonin message for refills. Please allow a minimum of 48-72 hours for your prescription to be completed. Your pharmacy will notify you when your prescription is ready to be picked up. Visit our website at [email or web address] for information about our practice and an interactive health encyclopedia. documented in this encounter Progress Notes * Rosalee Cano MD - 01/05/2021 1:30 PM CDT [facility] General Internal Medicine New Patient Note CC: Chief Complaint Patient presents with ??? Establish Care History of Present Illness: Mauricio Flores is a 55 year old female w/ PMHx significant for HTN, T2DM, diabetic neuropathy, hx TIA, HLD, pericardial cyst, microcytosis presenting to [facility] to establish care. HTN- not taking lisinopril bc believes causing diarrhea. Compliant w/ all other meds. States SBP 140s-190s at home. Diarrhea improved w/o lisinopril. I3BG-BOY A1c 6.7 today. States changed diet recently and eating healthier. Spoke regarding continuing lifestyle modifications. States she does not take glipizide consistently and only a few times a week. Gabapentin causing dizziness during day and improved with stopping. Now taking 100mg at night but not helping w/ numbness and tingling. HLD- does not take statin and ASA consistently. Reiterated importance of compliance. Microcytosis- takes iron daily. Past Medical History: Reviewed and updated in Epic History tab Past Surgical History: Reviewed and updated in Epic History tab Family History: Reviewed and updated in Epic History tab Social History: Reviewed and updated in [facility] History tab Medications: Reviewed and updated in Epic Medications tab Allergies: Reviewed and updated in [facility] Allergies tab Review of Systems: Bold if positive; otherwise negative Gen: fevers, chills, unintentional weight change Eyes: change in vision, loss of vision Ears: change in hearing, ear pain Throat: dysphagia, sore throat Nose: rhinorrhea, sinus pain CV: chest pain, palpitations, edema Pulm: SOB, WOOD, cough GI: abd pain, nausea, vomiting, diarrhea, constipation, melena, BRBPR : dysuria, hematuria, urinary frequency, urinary urgency, urinary incontinence MS: generalized arthralgias, generalized myalgias, back pain Neuro: focal weakness, numbness/tingling, LOC, lightheadedness, Physical Exam: BP 138/72 Pulse 57 Temp 98.8 ??F (37.1 ??C) (Oral) Ht 5' 6 (1.676 m) Wt 277 lb 12.8 oz (126 kg) SpO2 97% BMI 44.84 kg/m2 Gen: NAD, conversational, pleasant, cooperative Eyes: [...] GI clinic to establish care. #HTN -BP today: 138/72 -at home SBP 140-190s -endorses compliance, has not been taking lisinopril for ~2 weeks -lisinopril causing frequent BMs, has improved since stopped taking -previously stopped amlodipine d/t maricruz Plan: -continue carvedilol 25mg BID and hydralazine 75mg BID -start taking lisinopril 40mg at night #T2DM #Diabetic neuropathy -A1C 7.5 in 08/2019. -meds: glipizide and atorvastatin -glipizide 1-2x per week -dizziness w/ gabapentin, takes gabapentin 100mg qhs now and dizziness improved -eye exam:??last 05/2019-concern for retinopathy; states she will schedule -foot exam:??today, intact sensation bilaterally -microalb/cr ratio elevated in 08/2019, seen by nephro and instructed to work on control of HTN and DM -numbness and tingling of RLE -lifestyle modifications Plan: -POC A1c 6.7 today -start taking gabapentin 300mg qhs -continue glipizide #Hx TIA?? #HLD -does not take either consistently Plan: -continue ASA and atorvastatin, reiterated importance of compliance #Isolated proteinuria with morphologic lesion -seen by nephro and instructed to work on control of HTN and DM ?? #Pericardial cyst -noted on outside imaging, but not on echo in 06/2020 -previous [employer] discussed w/ cards: recommended yearly echo x 2, then every 5 years if stable -per [employer] report: usually benign if not enlarging??per Dr. Saldana Plan: -continue monitoring w/ echo, likely will need one soon bc does not believe she has had one recently ?? #Hx Microcytosis, resolved -no anemia -previously prescribed iron -colonoscopy normlal Plan: -continue iron supplementation -CBC ordered Preventative Care/Health Maintenance: Immunizations - Tdap: deferred - Influenza: n/a - PPSV23: deferred - PCV13: deferred - Zoster: not done - HPV: n/a Colorectal cancer screening: UTD, repeat in 5 yrs from 11/2020 given FHx Lung cancer screening: n/a HIV, Hep C: Hep C, deferred HIV Lipid screening: ordered DM screening: ordered Depression screening: PHQ-9: 4 Cervical cancer screening: believes [facility], will get info from [place] Preconception counseling: n/a Breast ca screening: done last month in [place] Osteoporosis screening: n/a Patient discussed with attending physician, Dr. Tello, who agrees with my assessment and plan. Return to clinic in 1 month. Rosalee Cano MD 01/05/2021 2:58 PM Associated attestation - Lala Tello MD - 01/06/2021 8:26 AM CDT IM Attending-Outpatient Clinic note I have seen and examined the patient with the resident and I agree with the findings and plan of care as documented by the resident. The plan was reviewed with the patient and the patient confirmed understanding of the plan and all follow-up steps. Total time spent on the encounter during the day of service including chart review, face to face encounter, documentation, communication and care coordination was 40 minutes. Lala Tello MD, FACP 01/05/2021 documented in this encounter Plan of Treatment Upcoming Encounters Date Type Department Care Team (Late st Contact Info) Description 12/15/2024 1:00 PM CDT Office Visit [facility] - Internal Med [address] [facility], [place] [phone] Neil Velasquez MD [address] [facility] [place] [address] documented as of this encounter Procedures Procedure Name Priority Date/Time Associated Diagnosis Comments CBC W/O DIFFERENTIAL 01/20/2021 9:39 AM CDT COMPREHENSIVE METABOLIC PANEL 01/20/2021 9:39 AM CDT LIPID PROFILE 01/20/2021 9:39 AM CDT MICROALB/CREAT RATIO URINE RANDOM PANEL 01/13/2021 10:50 AM CDT HEMOGLOBIN A1C - POINT OF CARE (AMB) [facility] Routine 01/05/2021 2:19 PM CDT 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) documented in this encounter Results * (ABNORMAL) CBC W/O DIFFERENTIAL (01/20/2021 9:39 AM CDT) [facility] White Blood Cell Count 5.3 3.8 - 10.8 Thousand/u L [facility] RBC 4.63 3.80 - 5.10 Million/uL [facility] Hemoglobin 12.4 11.7 - 15.5 g/dL [facility] Hematocrit 39.7 35.0 - 45.0 % [facility] MCV 85.7 80.0 - 100.0 fL [facility] MCH 26.8(L) 27.0 - 33.0 pg [facility] MCHC 31.2(L) 32.0 - 36.0 g/dL [facility] RDW 13.1 11.0 - 15.0 % [facility] Platelet Count 245 140 - 400 Thousand/u L [facility] MPV 11.8 7.5 - 12.5 fL [facility] Comment: REPORT COMMENT: FASTING:YES Test Performed at: [facility] [employer] [address] [place] [address] ??[id number] KATHY PEREZ DO,MPH 01/20/2021 9:39 AM CDT 01/20/2021 9:39 AM CDT Lala Tello MD LAB - HEMATOLOGY ORDERABLES [facility] [address] [place] [address] * (ABNORMAL) COMPREHENSIVE METABOLIC PANEL (01/20/2021 9:39 AM CDT) [facility] Glucose 108(H) 65 - 99 mg/dL [facility] Comment: ? Fasting reference interval For someone without known diabetes, a glucose value between 100 and 125 mg/dL is consistent with prediabetes and should be confirmed with a follow-up test. BUN 14 7 - 25 mg/dL [facility] Creatinine 0.91 0.50 - 1.05 mg/dL [facility] Comment: For patients >49 years of age, the reference limit for Creatinine is approximately 13% higher for people identified as -[place]. eGFR by MDRD 71 > OR = 60 mL/min/1 .73m2 [facility] eGFR by MDRD 82 > OR = 60 mL/min/1 .73m2 [facility] BUN/Creatinine Ratio NOT APPLICABLE 6 - 22 (calc) [facility] Sodium 142 135 - 146 mmol/L [facility] Potassium 4.0 3.5 - 5.3 mmol/L [facility] Chloride 108 98 - 110 mmol/L [facility] CO2 27 20 - 32 mmol/L [facility] Calcium 9.1 8.6 - 10.4 mg/dL [facility] Protein Total 6.6 6.1 - 8.1 g/dL [facility] Albumin 3.9 3.6 - 5.1 g/dL [facility] Globulin Total 2.7 1.9 - 3.7 g/dL (calc) [facility] Albumin/Globulin Ratio 1.4 1.0 - 2.5 (calc) [facility] Bilirubin Total 0.7 0.2 - 1.2 mg/dL [facility] Alkaline Phosphatase 76 37 - 153 U/L [facility] AST 14 10 - 35 U/L [facility] ALT 19 6 - 29 U/L [facility] Comment: Test Performed at: [facility] [place] [place] ??[phone] KATHY PEREZ DO,MPH 01/20/2021 9:39 AM CDT 01/20/2021 9:39 AM CDT Lala Tello MD LAB - CHEMISTRY O RDERABLES [facility] [address] [place] [address] * LIPID PROFILE (01/20/2021 9:39 AM CDT) Cholesterol 169 <200 mg/dL [facility] HDL Cholesterol 58 > OR = 50 mg/dL [facility] Triglycerides 93 <150 mg/dL [facility] LDL Calculated 92 mg/dL (calc) [facility] Comment: Reference range: <100 Desirable range <100 mg/dL for primary prevention; ?? <70 mg/dL for patients with CHD or diabetic patients with > or = 2 CHD risk factors. LDL-C is now calculated using the Tung-Laura calculation, which is a validated novel method providing better accuracy than the Friedewald equation in the estimation of LDL-C. Tung SS et al. SEBASTIAN. 2013;310(19): 9432-0665 (http://education.JumpStart.[employer] Sciences/faq/WCW659) CHOL/HDLC RATIO 2.9 <5.0 (calc) [facility] Non HDL Cholesterol 111 <130 mg/dL (calc) [facility] Comment: For patients with diabetes plus 1 major ASCVD risk factor, treating to a non-HDL-C goal of <100 mg/dL (LDL-C of <70 mg/dL) is considered a therapeutic option. Test Performed at: [facility] [address] [place], [place] ??[phone] KATHY PEREZ DO,MPH 01/20/2021 9:39 AM CDT 01/20/2021 9:39 AM CDT Lala Tello MD LAB - CHEMISTRY O RDERABLES Performing Organization Address [facility] Co de Phone Number [facility] [address] [place] [address] * (ABNORMAL) MICROALB/CREAT RATIO URINE RANDOM PANEL (01/13/2021 10:50 AM CDT) [facility] Creatinine Urine 148 20 - 275 mg/dL [facility] Microalbumin Urine 10.1 mg/dL [facility] Comment: Reference Range Not established Microalbumin/Creat inine Ratio 68(H) <30 mcg/mg creat [facility] Comment: The ADA defines abnormalities in albumin excretion as follows: Category ? Result (mcg/mg creatinine) Normal ?<30 Microalbuminuria ? 30-299 Clinical albuminuria ?? > OR = 300 The ADA recommends that at least two of three specimens collected within a 3-6 month period be abnormal before considering a patient to be within a diagnostic category. Test Performed at: [employer] ??[phone] KATHY PEREZ DO,MPH 01/13/2021 10:5 0 AM CDT 01/13/2021 10:51 AM CDT Catherine Salmeron APRN-KAYLIN LAB - URINE CHEM ISTRY ORDERABLES Performing Organization Address [facility] de Phone Number [facility] [address] [place] [address] * HEMOGLOBIN A1C - POINT OF CARE (AMB) [facility] (01/05/2021 2:19 PM CDT) Pathologist [facility] Hemoglobin A1c POCT 6.7 % BLOOD SPECIMEN / Unknown 01/05/2021 2:19 PM CDT Lala Tello MD LAB - POINT OF CA RE ORDERABLES documented in this encounter Visit Diagnoses Diagnosis 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)- Primary Type II or unspecified type diabetes mellitus with unspecified complication, not stated as uncontrolled Hyperlipidemia, unspecified hyperlipidemia type Essential hypertension Microcytosis Other abnormality of red blood cells Iron deficiency anemia, unspecified iron deficiency anemia type Preventative health care Routine general medical examination at a health care facility documented in this encounter Care Teams Reclaimer Relationship Specialty Start Date End Date Rosalee Cano MD [address] [place] [address] PCP - General 12/10/20 04/12/21 documented as of this encounter
--- OUTSIDE RECORDS SUMMARY | 2024-08-02 10:01 | XMS_ITS | Encounter Summary ---
Author Organization [facility] Health Address [address] [facility] [place] [address] Care Team Providers Care Director Of Community Education Name Role Phone Unavailable Primary Care Provider Unavailabl e Reason for Visit * Reason Comments Hypertension Follow-up Nurse Only Encounter Details Date Type Department Care Team (Latest Contact Info) Description 05/14/2019 10:15 AM CDT Clinical Support [facility] General Internal Medicine [address] [address] Essential hypertension Social History Tobacco Use Types [...] Sign Reading Time Taken Comments Blood Pressure 170/80 05/14/2019 10:19 AM CDT Pulse 48 05/14/2019 10:19 AM CDT Temperature 36.9 ??C (98.4 ??F) 05/14/2019 10:19 AM C DT Respiratory Rate 16 05/14/2019 10:19 AM CDT Oxygen Saturation - - Inhaled Oxygen Concentration - - Weight 132.9 kg (293 lb) 05/14/2019 10:19 AM CDT Height - - Body Mass Index 48.76 12/30/2018 9:20 AM CDT documented in this encounter Progress Notes * Shanice Wilalrd - 05/14/2019 10:51 AM CDT Pt come in for a b/p reading reported to her provider Catherine Young. Provider inform me that she was schedule to early to for a visit that she was just here Sunday and will like for her to return in twoweeks documented in this encounter Plan of Treatment Upcoming Encounters Date Type Department Care Team (Late st Contact Info) Description 12/15/2024 1:00 PM CDT Office Visit [facility] Physician [facility] - Internal Med [address] [facility], [place] [address] Neil Velasquez MD [address] [facility] [place] [address] documented as of this encounter Visit Diagnoses Diagnosis Essential hypertension- Primary documented in this encounter
--- OUTSIDE RECORDS SUMMARY | 2024-08-02 10:01 | XMS_ITS | Encounter Summary ---
Author Organization [facility] Address [address] [facility] [place] [address] Care Team Providers Care Lift Operator Name Role Phone Unavailable Primary Care Provider Unavailabl e Encounter Details Date Type Department Care Team (Late Contact Info) Description 11/05/2020 Orders Only [facility] - COVID Vaccine [address] [place] [address] David Lynn MD [address] [place] [address] Need for vaccination Social History Tobacco Use Types Packs/Day Years [...] [facility] Internal Med [address] [facility], [place] [phone] Neil Velasquez MD [address] [facility] [place] [address] documented as of this encounter Visit Diagnoses Diagnosis Need for vaccination Need for prophylactic vaccination and inoculation against unspecified single disease documented in this encounter
--- OUTSIDE RECORDS SUMMARY | 2024-08-02 10:01 | XMS_ITS | Encounter Summary ---
Author Organization [facility] Health Address [address] [facility] [place] [address] Care Team Providers Care Disc Ruler Operator Name Role Phone Unavailable Primary Care Provider Unavailabl e Encounter Details Date Type Department Care Team (Late Contact Info) Description 06/10/2020 Orders Only [facility] [address] [facility] [address] [place] [address] Suzanna Copeland, PLASTIC PRODUCTION MACHINE SETTER-PLASTERER FOREMAN [address] [facility] [address] [place] [address] Social History Tobacco Use Types Packs/Day Years [...] [facility] - Internal Med [address] [facility], [place] [phone] Neil Velasquez MD [address] [facility] [place] [address] documented as of this encounter Visit Diagnoses Not on filedocumented in this encounter
--- OUTSIDE RECORDS SUMMARY | 2024-08-02 10:01 | XMS_ITS | Encounter Summary ---
Author Organization [facility] Health Address [address] [facility] [place] [address] Care Team Providers Care Stonecutter Apprentice Hand Name Role Phone Unavailable Primary Care Provider Unavailabl e Reason for Visit * Reason Onset Date Comments Pre-op Instructions 11/30/2020 Encounter Details Date Type Department Care Team (Late Contact Info) Description 11/30/2020 Patient Outreach [facility] ENDOSCOPY [address] [place] [phone] Suki Acuna, LAST Pre-op Instructions Social History Tobacco Use Types Packs/Day Years [...] encounter Miscellaneous Notes * Telephone Encounter - Suki Acuna, LAST - 11/30/2020 3:00 PM CDT Pt confirmed appt for colonoscopy but in car at the moment. Pt requests I call back in 10 min to goover instructions. documented in this encounter Plan of Treatment Upcoming Encounters Date Type Department Care Team (Late Contact Info) Description 12/15/2024 1:00 PM CDT Office Visit [facility] Physician Group - Internal Med [address] [facility], [place] [address] eNil Velasquez MD [address] [facility] [place] [address] documented as of this encounter Visit Diagnoses Not on filedocumented in this encounter
--- OUTSIDE RECORDS SUMMARY | 2024-08-02 10:01 | XMS_ITS | Encounter Summary ---
Author Organization [facility] Health Address [address] [facility] [place] [address] Care Team Providers Care Tile Presser Name Role Phone Unavailable Primary Care Provider Unavailabl e Reason for Visit * Reason Onset Date Comments LABS ONLY 08/25/2019 Encounter Details Date Type Department Care Team (Late st Contact Info) Description 08/25/2019 Telephone [facility] [address] [address] Catherine Salmeron, GIANNA [address] OF [facility] [place] [address] LABS ONLY Social History Tobacco Use Types Packs/Day Years [...] Telephone Encounter - Catherine Young APRN-CNP - 08/25/2019 11:27 AM PLATEN GRINDER Called to review lab results: -Normal protein electrophoresis. -Normal thyroid profile. -UA with protein, RBC and with elevated microalbumin/creatinine ratio. Recommend following up with nephrology and repeat UA in 4-8 weeks (notes she was on her menstrual cycle at the time). Is taking lisinopril. -A1C and lipid profile and anemia profile not drawn for unknown reason. Re- ordered. To have drawn prior to upcoming visit. GIANNA Fritz EN GRINDER * Telephone Encounter - Neela Al RN - 08/25/2019 11:23 AM CST Patient would like lab results [phone] EN GRINDER documented in this encounter Plan of Treatment Upcoming Encounters Date Type Department Care Team (Late st Contact Info) Description 12/15/2024 1:00 PM CDT Office Visit [facility] Physician Group - Internal Med [address] [facility], [place] [address] Neil Velasquez MD [address] [facility] [place] [address] documented as of this encounter Visit Diagnoses Diagnosis Type 2 diabetes mellitus with microalbuminuria, without long-term current use of insulin (HCC)- Primary Hematuria, unspecified type Anemia, unspecified type documented in this encounter
--- OUTSIDE RECORDS SUMMARY | 2024-08-02 10:01 | XMS_ITS | Encounter Summary ---
Author Organization [facility] Health Address [address] [facility] [place] [address] Care Team Providers Care Boring Machine Operator Vertical Name Role Phone Unavailable Primary Care Provider Unavailabl e Reason for Visit * Reason Onset Date Comments MEDICATION REFILL 07/29/2019 Encounter Details Date Type Department Care Team (Late st Contact Info) Description 07/29/2019 Refill [facility] [address] [address] Catherine Salmeron, GRAIN HANDLER[employer] [address] [place] [address] MEDICATION REFILL Social History Tobacco Use Types [...] * Telephone Encounter - Ebony Mabry - 07/29/2019 1:21 PM CST Refill request sent per protocol to provider NEREIDA 07-14-19 NOV 09-15-19 COUNSELOR documented in this encounter Plan of Treatment Upcoming Encounters Date Type Department Care Team (Late st Contact Info) Description 12/15/2024 1:00 PM CDT Office Visit [facility] Physician Group - Internal Med [address] [facility], [place] [phone] Neil Velasquez MD [address] [facility] [place] [address] documented as of this encounter Visit Diagnoses Diagnosis Iron deficiency anemia, unspecified iron deficiency anemia type documented in this encounter
--- OUTSIDE RECORDS SUMMARY | 2024-08-02 10:01 | XMS_ITS | Encounter Summary ---
Author Organization [facility] Health Address [address] [place] [address] Care Team Providers Care Assembler Production Line Name Role Phone Unavailable Primary Care Provider Unavailabl e Reason for Visit * Reason Comments Numbness pt c/o numbness thro ugh out body Encounter Details Date Type Department Care Team (Latest Contact Info) Description 10/06/2020 10:10 AM PHARMACY TECHNICIAN INPATIENT Office Visit [facility] General Internal Medicine [address] [place] [id number] Diabetic polyneuropathy associated with type 1 diabetes mellitus (HCC) (Primary Dx) Social History Tobacco Use Types [...] Sign Reading Time Taken Comments Blood Pressure 175/87 10/06/2020 10:13 AM PHARMACY TECHNICIAN INPATIENT Pulse 66 10/06/2020 10:13 AM PHARMACY TECHNICIAN INPATIENT Temperature 36.3 ??C (97.3 ??F) 10/06/2020 10:[address] Respiratory Rate - - Oxygen Saturation 90% 10/06/2020 10:13 AM PHARMACY TECHNICIAN INPATIENT Inhaled Oxygen Concentration - - Weight 127.9 kg (282 lb) 10/06/2020 10:13 AM PHARMACY TECHNICIAN INPATIENT Height - - Body Mass Index 45.52 06/09/2020 10:57 AM CDT documented in this encounter Patient Instructions * Patient Instructions* Bakari Barba - 10/06/2020 10:13 AM PHARMACY TECHNICIAN INPATIENT [facility] Internal Medicine is committed to providing [...] for your doctor, the office phone is [phone]. You will be given options to get [...] primary care provider. Please call us at [phone], option 1, then option 1 in the morning you would like to be seen. Our fax number is [phone]. Instructions for reaching the practice after office hours For urgent concerns that cannot wait until phone lines are open on the next business day, please call [phone] to speak to the covering General Internal Medicine provider. Identify yourself as a patient in our practice and give the caramel coloring operator your doctor's name. The caramel coloring operator will contact the physician zone maintenance technician. You can generally expect a return call within 30 minutes. Prescription Refills Contact your pharmacy to request all refills. You may also send a Pivott message for refills. Please allow a minimum of 48-72 hours for your prescription to be completed. Your pharmacy will notify you when your prescription is ready to be picked up. Visit our website at [email or web address] for information about our practice and an interactive health encyclopedia. Our clinic's missed appointment policy is: - Patients with 3 consecutively missed appointments OR 3 missed appointments in a 12 month period will no longer be seen by General Internal Medicine. They will be asked to seek Primary Care outside of [facility]. - A missed appointment is defined as: * An appointment cancelled less than 24 hours in advance *Arriving to a scheduled appointment too late to be seen (Patients who arrive to clinic later than their scheduled appointment time may not be seen) * Not showing up for an appointment MACY TECHNICIAN INPATIENT documented in this encounter Progress Notes * Isak Castorena MD - 10/06/2020 10:[address] [facility] General Internal Medicine Acute Care Patient Note CC: Chief Complaint Patient presents with ??? Numbness pt c/o numbness through out body Assessment & Plan: # Peripheral numbness - Likely diabetic neuropathy - Started on 10/01, presented to OSH ED. Had w/u which was unremarkable per patient (unable to see records in care everywhere) - No alarm symptoms, no trauma, no other concerning s/s - Patient not taking glipizide, last A1c 7.5 Plan: - Start gabapentin 100mg TID - Advise patient to start taking glipizide as prescribed - Recommend PCP appointment at next available visit for BP & DM2 control Patient discussed with attending physician, Dr. Glaser, who agrees with my assessment and plan. RTC as previously scheduled with PCP. Note routed to PCP. History of Present Illness: Mauricio Flores is a 55 year old female presenting to GI clinic for right foot numbess. She notes that this began on 10/01 with persistent right foot numbness. She notes some extension of numbness with some associated tingling up her right leg. She additionally notes some tingling in her right arm intermittently and some on the right side of her head. She denies any pain, weakness, or any other associated symptoms. She does note increased stress recently that has been profound. She denies any trauma, prior spinal operations, or new back pain. She notes she presented to OSH ED for this numbness with their w/u benign per the patient (unable to access OSH records). Past Medical History: Reviewed and updated in [...] with morning and evening meal 60 tablet 3 ??? ferrous sulfate 325 (65 FE) MG [...] mouth once daily 90 tablet 1 ??? VITAMIN D PO No current facility-administered medications for this visit. Allergies: Reviewed and updated in Epic Allergies tab Review of Systems: Review of Systems Constitutional: Negative for chills, diaphoresis, fever, malaise/fatigue and weight loss. HENT: Negative for congestion, ear discharge, ear pain, hearing loss, nosebleeds, sinus pain, sore throat and tinnitus. Eyes: Negative for blurred vision, double vision, photophobia, pain, discharge and redness. Respiratory: Negative for cough, hemoptysis, sputum production, shortness of breath, wheezing and stridor. Cardiovascular: Negative for chest pain, palpitations, orthopnea, claudication, leg swelling and PND. Gastrointestinal: Negative for abdominal pain, blood in stool, constipation, diarrhea, heartburn, melena, nausea and vomiting. Genitourinary: Negative for dysuria, flank pain, frequency, hematuria and urgency. Musculoskeletal: Negative for back pain, falls, joint pain, myalgias and neck pain. Skin: Negative for itching and rash. Neurological: Positive for tingling and sensory change. Negative for dizziness, tremors, speech change, focal weakness, seizures, loss of consciousness, weakness and headaches. Endo/Heme/Allergies: Negative for environmental allergies and polydipsia. Does not bruise/bleed easily. Psychiatric/Behavioral: Negative for depression, hallucinations, memory loss, substance abuse and suicidal ideas. The patient is not nervous/anxious and does not have insomnia. Physical Exam: BP 175/87 Pulse 66 Temp 97.3 ??F (36.3 ??C) (Skin) Wt 282 lb (127.9 kg) SpO2 90% BMI 45.52 kg/m2 Physical Exam Constitutional: She is oriented to person, place, and time and well-developed, well-nourished, and in no distress. No distress. HENT: Head: Normocephalic and atraumatic. Eyes: Pupils are equal, round, and reactive to light. Conjunctivae and EOM are normal. Neck: Normal range of motion. Neck supple. Cardiovascular: Normal rate, regular rhythm and intact distal pulses. Exam reveals no gallop and nofriction rub. No murmur heard. Pulmonary/Chest: Effort normal and breath sounds normal. No respiratory distress. She has no wheezes. She has no rales. She exhibits no tenderness. Abdominal: Soft. Bowel sounds are normal. She exhibits no distension and no mass. There is no abdominal tenderness. There is no rebound and no guarding. Musculoskeletal: Normal range of motion. General: No tenderness, deformity or edema. Neurological: She is alert and oriented to person, place, and time. No cranial nerve deficit. Skin: Skin is warm and dry. No rash noted. She is not diaphoretic. No erythema. Labs: Personally reviewed. Pertinent for: A1c 7.5 Imaging/Other diagnostic testing: Personally reviewed. Pertinent for: None Isak Castorena MD 10/06/2020 MACY TECHNICIAN INPATIENT Associated attestation - Ruddy Glaser MD - 10/06/2020 11:36 AM PHARMACY TECHNICIAN INPATIENT I have seen and examined the patient with the resident and I agree with the findings and plan of care as documented by the resident. In addition: Pt with neuropathic symptoms, likely related to DM (has been off medications but a1c only slightly above goal) - restarting glipizide and other blood pressure medications (pt had not refilled in many months) - added gabapentin Educated patient about diabetic neuropathy and chronic management of diabetes. Pt to check sugars at least once daily when restarting glipizide (did not tolerate metformin) Will refer to pcp for next available as well for further management Date of Service: 10/06/2020 Ruddy Glaser MD documented in this encounter Plan of Treatment Upcoming Encounters Date Type Department Care Team (Late st Contact Info) Description 12/15/2024 1:00 PM CDT Office Visit [facility] - Internal Med [address] [facility] [place] [address] Neil Velasquez MD [address] [facility] [place] [address] documented as of this encounter Visit Diagnoses Diagnosis Diabetic polyneuropathy associated with type 1 diabetes mellitus (HCC)- Primary documented in this encounter
--- OUTSIDE RECORDS SUMMARY | 2024-08-02 10:01 | XMS_ITS | Encounter Summary ---
Author Organization [facility] Health Address [address] [facility] [place] [address] Care Team Providers Care Dispatcher Automobile Rental Name Role Phone Rosalee Cano MD Primary Care Provider [phone] Reason for Visit * Reason Onset Date Comments MEDICATION REFILL 01/03/2021 Encounter Details Date Type Department Care Team (Late st Contact Info) Description 01/03/2021 Refill [facility] General Internal Medicine [address] [place] [address], [place] [address] Rosalee Cano MD [address] [place] [address] OF [facility] [place] [address] MEDICATION REFILL Social History Tobacco [...] Telephone Encounter - Hedy Zhang MA - 01/03/2021 3:07 PM CDT Refill Request Mauricio Flores NEREIDA: 08-11-20 NOV scheduled: 01/05/2021 LRF: 12-08-20 Qty Disp: 90 # of refills: 0 Allergies: Allergies Allergen Reactions ??? Hydrocodone-Acetaminophen Rash Vicodin ??? Brokaw Itching Pended Medication Order: Requested Prescriptions Pending Prescriptions Disp Refills ??? hydrALAZINE (APRESOLINE) 50 MG tablet 90 tablet 0 Sig: Take 1 (one) tablet by mouth 3 times daily documented in this encounter Plan of Treatment Upcoming Encounters Date Type Department Care Team (Late st Contact Info) Description 12/15/2024 1:00 PM CDT Office Visit [facility] - Internal Med [address] [facility] [place] [address] Neil Velasquez MD [address] [facility] [place] [address] documented as of this encounter Visit Diagnoses Diagnosis Essential hypertension documented in this encounter Care Teams Dispatcher Automobile Rental Relationship Specialty Start Date End Date Rosalee Cano MD [address] [place] [address] [address] OF [facility] [place] [address] PCP - General 12/10/20 04/12/21 documented as of this encounter
--- OUTSIDE RECORDS SUMMARY | 2024-08-02 10:01 | XMS_ITS | Encounter Summary ---
Author Organization [facility] Health Address [address] [facility] [place] [address] Care Team Providers Care Db2 Developer Name Role Phone Unavailable Primary Care Provider Unavailabl e Reason for Visit * Reason Onset Date Comments MEDICATION REFILL 10/13/2020 Encounter Details Date Type Department Care Team (Late st Contact Info) Description 10/13/2020 Refill [facility] General Internal Medicine [address] [place] [address], [place] [address] Rosalee Cano MD [address] [place] [address] OF [facility] [place] [address] MEDICATION REFILL Social History Tobacco Use Types [...] Telephone Encounter - Suad Ingram RN - 10/13/2020 1:14 PM MEDIA RECONCILIATION SPECIALIST Refill Request Mauricio Flores NEREIDA: 08/11/20 NOV scheduled: 01/05/2021 LRF: 09/20/20 Qty Disp: 90 # of refills: 0 Allergies: Allergies Allergen Reactions ??? Hydrocodone-Acetaminophen Rash Vicodin ??? Robeline Itching Pended Medication Order: Requested Prescriptions Pending Prescriptions Disp Refills ??? hydrALAZINE (APRESOLINE) 50 MG tablet 90 tablet 0 Sig: Take 1 (one) tablet by mouth 3 times daily A RECONCILIATION SPECIALIST documented in this encounter Plan of Treatment Upcoming Encounters Date Type Department Care Team (Late st Contact Info) Description 12/15/2024 1:00 PM CDT Office Visit [facility] - Internal Med [address] [facility] [place] [phone] Neil Velasquez MD [address] [facility] [place] [address] documented as of this encounter Visit Diagnoses Diagnosis Essential hypertension documented in this encounter
--- OUTSIDE RECORDS SUMMARY | 2024-08-02 10:01 | XMS_ITS | Encounter Summary ---
Author Organization [facility] Health Address [address] [facility] [place] [address] Care Team Providers Care Scientific Laboratory Supervisor Name Role Phone Unavailable Primary Care Provider Unavailabl e Reason for Visit * Reason Onset Date Comments Results 06/09/2020 Encounter Details Date Type Department Care Team (Late st Contact Info) Description 06/09/2020 Telephone [facility] General Internal Medicine [facility] [facility] [place] [id number] Catherine Salmeron APRN-KAYLIN [address] [place] [address] OF [facility] INTER[place] [address] Results Social History Tobacco Use Types Packs/Day [...] Telephone Encounter - Catherine Salmeron APRN-CNP - 06/10/2020 10:31 AM CDT Returned call to patient. Reviewed results and recommendations. Order placed for Lexican. GIANNA Howe * Telephone Encounter - Stacy Snow RN - 06/09/2020 4:16 PM CDT Pt calling back regarding results. Message relayed to the pt from the pcp. Pt has questions and asking for the pcp to call her at [phone]. * Telephone Encounter - Catherine Salmeron APRN-CNP - 06/09/2020 2:30 PM CDT Reviewed result of ECHO stress: -No stress induced ischemia, though was submaximal and alternate testing recommended, as testing had reduced sensitivity since it was submaximal. Will plan for Regadenoson nuclear stress test. -EKG negative for ischemic changes. -Mild LVH. -EF of 64%. -Mild pulmonary HTN. Called to notify patient of result. No answer. Will attempt to contact at a later time. GIANNA Howe documented in this encounter Plan of Treatment Upcoming Encounters Date Type Department Care Team (Late st Contact Info) Description 12/15/2024 1:00 PM CDT Office Visit [facility] - Internal Med [address] [facility] [place] [address] Neil Velasquez MD [address] [facility] [place] [address] documented as of this encounter Visit Diagnoses Diagnosis Hypertension, unspecified type- Primary History of chest pain Personal history of other specified diseases documented in this encounter
--- OUTSIDE RECORDS SUMMARY | 2024-08-02 10:01 | XMS_ITS | Encounter Summary ---
Author Organization [facility] Address [address] [place] [address] Care Team Providers Care Founder And Chief Technical Officer Name Role Phone Unavailable Primary Care Provider Unavailabl e Encounter Details Date Type Department Care Team (Late st Contact Info) Description 06/23/2019 12:40 PM HEALTH PROMOTER Office Visit [facility] [address] [facility] [address] [place] [address] Catherine Salmeron, METAL CLEANER-ENGRAVING SUPERVISOR [address] [facility] [place] [address] Pericardial cyst (HCC) (Primary Dx); Abnormal cervical Papanicolaou smear, unspecified abnormal pap finding; Essential hypertension; 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); Retinopathy; Nephropathy; Hyperlipidemia, unspecified hyperlipidemia type; Class 3 severe obesity with serious comorbidity and body mass index (BMI) of 45.0 to 49.9 in adult, unspecified obesity type (HCC); Microcytosis; Personal history of transient ischemic attack (TIA), and cerebral infarction without residual deficits; Enlarged thyroid; Healthcare maintenance Social History Tobacco Use Types [...] Sign Reading Time Taken Comments Blood Pressure 180/90 06/23/2019 12:42 PM HEALTH PROMOTER Pulse 74 06/23/2019 12:42 PM HEALTH PROMOTER Temperature 36.4 ??C (97.5 ??F) 06/23/2019 12:[address] Respiratory Rate - - Oxygen Saturation - - Inhaled Oxygen Concentration - - Weight 131.5 kg (290 lb) 06/23/2019 12:42 PM HEALTH PROMOTER Height - - Body Mass Index 48.26 05/30/2019 4:53 PM CDT documented in this encounter Progress Notes * Catherine Young, METAL CLEANER-ENGRAVING SUPERVISOR - 06/23/2019 12:40 PM CST Internal Medicine Primary Care Progress Note CC: Follow up. HPI/Interval History: Mauricio Flores is a 54 year old female presenting for follow up. Patient last seen in GI clinic on 04/16/19. Patient with poor medication compliance. Abnormal pap. -Followed by outside [employer] PRESS TENDER. -Planning for intervention next week, ?colposcopy. Pericardial cyst. -Noted on outside imagin.9x1.2cm.??Discussed with cardiology who recommended yearly ECHOs x 2 and then every 5 years if stable.??Usually benign if not enlarging per Dr. Saldana. -Recent ECHO 06/2019: No pericardial cyst noted. -Denies chest pain, palpitations, SOB, headaches or vision changes. HTN. -Poorly controlled. -Meds: carvedilol 12.5mg BID, lisinopril 40mg daily. Stopped amlodipine because she thinks it caused urination. -ED visit 05/2019 for HTN. Unremarkable work up. -Checking BPs at home: 136/90. -Denies chest pain, palpitations, SOB, headaches or vision changes. DM2. -A1C=9.2%, 05/2019. -Meds: metformin ER 500mg daily. Has not been taking due to diarrhea. -Eye exam: 05/2019-retinopathy. -Foot exam: 11/19/18. -Statin:??Atorvastatin 40mg nightly started at visit today.?? -Microalbumin/creatinine ratio: Elevated??in 2019. Following with nephrology. HLD/Obesity. -Taking atorvastatin 40mg daily. -Trying to watch what she is eating. Wt Readings from Last 3 Encounters: 11/11/19 290 lb (131.5 kg) 05/30/19 288 lb (130.6 kg) 05/28/19 290 lb (131.5 kg) Anemia. -No menstrual cycle in 3 months. -Anemia resolved but still microcytic, but iron WDL. -Does have elevated RBC-minimal but improving. -Taking daily iron supplement. Past Medical History 06/23/2019: Reviewed and Updated; see Epic History tab for details Past Surgical History 06/23/2019: Reviewed and Updated; see Epic History tab for details Social History 06/23/2019: Reviewed and Updated; see Epic History tab for details Family History 06/23/2019: Reviewed and Updated; see Epic History tab [...] daily with morning and evening meal ??? Glucose Blood (BLOOD GLUCOSE TEST STRIPS) STRP Use 1 strip TID. ??? Glucose Blood (BLOOD GLUCOSE TEST STRIPS) STRP Use 1 strip TID. ??? LANCETS SUPER THIN 28G MISC Use TID. ??? lisinopril (PRINIVIL; ZESTRIL) 40 MG tablet Take 1 tablet by mouth once daily No current facility-administered medications for this visit. Allergies: Allergies Allergen Reactions ??? Hydrocodone-Acetaminophen Rash Vicodin ??? [place] Itching Review of Systems: Gen: Denies fevers, chills Eyes: Denies change in vision Ears, Nose, Mouth, Throat: Denies change in hearing; denies rhinorrhea, nasal pain; denies dysphagia CV: Denies chest pain, palpitations Resp: Denies SOB GI: Denies n/v, constipation, melana, BRBPR. Reports intermittent abdominal pain and diarrhea when taking metformin. : Denies dysuria, hematuria, urinary frequency, urinary urgency Neuro: Denies focal weakness, LOC Physical Exam: BP 180/90 Pulse 74 Temp 97.5 ??F (36.4 ??C) (Oral) Wt 290 lb (131.5 kg) BMI 48.26 kg/m2 Gen: NAD, conversational, pleasant, cooperative Eyes: EOMI; anicteric, non-injected sclerae Ears: TMs intact and pearly mcgee without exudates bilaterally Nose: Turbinates pink and moist Mouth: Moist oral mucous membrane; no lesions or sores appreciated; no tonsillar exudates Neck: Enlarged thyroid noted Lymph: No supraclavicular, submadibular, cervical LAD CV: Normal S1, S2; RRR; no MRGs [...] 70-189, or 10yr risk >7.5%):??Currently on statin therapy. - Diabetes screening (BP>135/80, HLD, obesity):??06/2019=9.2%. - HIV (once, or annually if high risk): Declined at visit 11/19/18. - HepC (once if patient born between 0104-0154): 08/2014. - ASA ppx (>3% 5yr risk): Currently on daily ASA. - Depression screening: PHQ9??9108/23/2018=0. -Obesity/physical activity/diet counseling: Body mass index is 48.26 kg/m??. - Immunizations ?- Influenza: Due. Declined at visit 06/23/19 ?- HPV (<26): NA ?- Prevnar (>65 if PPSV23 naive, or at least 1 year after PPSV23): Due at age 65. ?- Pneumovax (>65 unless risk factors, 6-12mos after Prevnar): Reports she has had in the past. Declines re- vaccination at visit 11/19/18. ?- Tdap/Td (p06ddtok): 11/19/18. ?- Zoster (>60): Due at age 60. Labs: Personally reviewed. Assessment and Plan: 1. Pericardial cyst -Noted on previous MRI. -ECHO 06/2019 without cyst. -Discussed with cardiology who recommended yearly ECHOs x 2 and then every 5 years if stable.??Usually benign if not enlarging per Dr. Saldana. -Plan for repeat ECHO 12/2019 for surveillance. 2. Abnormal cervical Papanicolaou smear, unspecified abnormal pap finding -Followed by outside [employer]AM B[employer] PRESS TENDER. -Planning for intervention later this month, ?colposcopy. -Continued management per STE[employer] B[employer] PRESS TENDER. 3. Essential hypertension -BP above goal. -ECHO with grade 1 diastolic dysfunction-refuses diuretic. -Refuses amlodipine, as she thinks it caused urinary frequency. -Continue lisinopril 40mg daily. -Increase carvedilol (COREG) 25 MG tablet; Take 1 tablet by mouth 2 times daily with morning and evening meal Dispense: 180 tablet; Refill: 0 -RTC in 4 weeks for BP check. 4. Type 2 diabetes mellitus with complications -Poorly controlled with poor medication compliance. -A1C=9.2%, 05/2019. -Meds: metformin ER 500mg daily. Has not been taking due to diarrhea. -Eye exam: 05/2019-retinopathy. -Foot exam: 11/19/18. -Statin:??Atorvastatin 40mg nightly started at visit today.?? -Microalbumin/creatinine ratio: Elevated??in 2019. Following with nephrology. -Stop metformin due to non-compliance and diarrhea. Start glipizide. - glipiZIDE (GLUCOTROL) 5 MG tablet; Take 1 tablet by mouth 2 times daily,before breakfast and supper Dispense: 90 tablet; Refill: 2 5. Retinopathy -Followed by outside ophthalmology. -Discussed importance of DM2 control. 6. Nephropathy -Following with nephrology. -Unremarkable US of kidneys. -Discussed importance of DM2 and HTN management. -Continued surveillance per nephrology. 7. Hyperlipidemia, unspecified hyperlipidemia type 8. Class 3 severe obesity with serious comorbidity and body mass index (BMI) of 45.0 to 49.9 in adult, unspecified obesity type -Body mass index is 48.26 kg/m??. Wt Readings from Last 3 Encounters: 06/23/19 290 lb (131.5 kg) 05/30/19 288 lb (130.6 kg) 05/28/19 290 lb (131.5 kg) -Continue atorvastatin. 9. Microcytosis -Still present but without anemia. -Now with elevated RBC but improving. Will plan to trend. -Continue iron supplement. -Consider protein electrophoresis. 10. Personal history of transient ischemic attack (TIA), and cerebral infarction without residual deficits -Continue daily ASA and statin therapy. 11. Enlarged thyroid -Plan for US and labs at next visit after further discussion. 12. Healthcare maintenance -As above. Patient to RTC in 1 month or sooner PRN. Call with any questions or concerns in the interim. GIANNA Fritz TH PROMOTER documented in this encounter Plan of Treatment Upcoming Encounters Date Type Department Care Team (Late st Contact Info) Description 12/15/2024 1:00 PM CDT Office Visit [facility] - Internal Med [address] [place] [id number] Neil Velasquez MD [address] [facility] 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) Type II or unspecified type diabetes mellitus with unspecified complication, not stated as uncontrolled Retinopathy Background retinopathy, unspecified Nephropathy Nephritis and nephropathy, not specified as acute or chronic, with unspecified pathological lesion in kidney Hyperlipidemia, unspecified hyperlipidemia type Class 3 severe obesity with serious comorbidity and body mass index (BMI) of 45.0 to 49.9 in adult, unspecified obesity type (HCC) Microcytosis Other abnormality of red blood cells Personal history of transient ischemic attack (TIA), and cerebral infarction without residual deficits Enlarged thyroid Goiter, unspecified Healthcare maintenance Routine general medical examination at a health care facility documented in this encounter
--- OUTSIDE RECORDS SUMMARY | 2024-08-02 10:02 | XMS_ITS | Encounter Summary ---
Author Organization [facility] Address [address] [address] Care Team Providers Care Clinical Statistics Manager Name Role Phone Rosalee Cano MD Primary Care Provider Rosalee Cano MD Primary Care Provider [phone] Lala Tello MD Primary Care Provider [phone] Rosalee Cano MD Unavailable [phone] Rosalee Cano MD Unavailable [phone] Ronald Casarez MD Primary Care Provider Lala Tello MD Primary Care Provider [phone] Ronald Casarez MD Primary Care Provider [phone] Randi Gomes DO Unavailable [phone] Randi Gomes DO Primary Care Provider Neil Velasquez MD Primary Care Provider [phone] Reason for Visit * Reason Onset Date Comments Medication Problem 12/10/2017 Medication Issue 12/12/2017 1st attempt to contact patient unable to LM Encounter Details Date Type Department Care Team (Late st Contact Info) Description 12/10/2017 Telephone [facility] [address] [facility] [address] [place] [address] Farheen Lafleur MD [address] [place] [address] Medication Problem; Medication Issue (1st attempt to contact patient unable to LM ) Social History Tobacco Use Types Packs/Day [...] encounter Miscellaneous Notes * Telephone Encounter - Luci Yee - 12/13/2017 9:59 AM CDT Called and spoke with patient who confirmed name, , and address. This RN relayed message from Dr. Lafleur regarding trulicity but patient stated someone talked to her yesterday. Pt had no further questions or concerns at This time. * Telephone Encounter - Rose Mary Dejesus - 12/12/2017 11:28 AM CDT 1st attempt to contact patient and notify of provider's message and unable to contact patient at this time. Will re attempt at a later time. CB#[phone] Provider's Message Please let pt know it takes several weeks for trulicity to show its effects---we usually increase the dose after 4 weeks to 1.5, I will send in new rx if she has used the .75 for 4 weeks ?? I will not be here after February 10 for at least 12 months---I really want her to continue following with someone, she is making good progress * Telephone Encounter - Farheen Lafleur MD - 12/10/2017 4:01 PM CDT Please let pt know it takes several weeks for trulicity to show its effects---we usually increase the dose after 4 weeks to 1.5, I will send in new rx if she has used the .75 for 4 weeks I will not be here after February 10 for at least 12 months---I really want her to continue following with someone, she is making good progress * Telephone Encounter - SanthoshTeresa - 12/10/2017 10:44 AM CDT PT: Mauricio Flores PH: [phone] Patient would like to inform she would like to discontinue dulaglutide (TRULICITY) 0.75 MG/0.5ML injection medication as she is not seeing any change in her numbers. Patient would also like to know when/if Dr. Lafleur is returning as she would like to be seen by her only. Please advise. Thank you documented in this encounter Plan of Treatment Upcoming Encounters Date Type Department Care Team (Late st Contact Info) Description 12/15/2024 1:00 PM CDT Office Visit [facility] - Internal Med [address] [place] [address] Neil Velasquez MD [address] [place] [address] documented as of this encounter Visit Diagnoses Not on filedocumented in this encounter Care Teams Clinical Statistics Manager Relationship Specialty Start Date End Date Rosalee Cano MD [address] [facility] [place] [address] PCP - General 12/10/20 04/12/21 Rosalee Cano MD [address] [facility] [place] [address] PCP - General 05/04/21 12/01/21 Lala Tello MD [address] [facility] [place] [address] PCP - General Internal Medicine 12/02/21 11/21/22 Ronald Casarez MD [address] [place] [address] PCP - General Internal Medicine 11/22/22 11/22/22 Lala Tello MD [address] [facility] [place] [address] PCP - General 11/23/22 12/05/22 Ronald Casarez MD [address] [place] [address] PCP - General Internal Medicine 12/06/22 05/20/23 Randi Gomes DO [address] [place] [address] PCP - General Internal Medicine 05/21/23 10/23/23 Neil Velasquez MD [address] [place] [address] PCP - General Internal Medicine 10/24/23 Rosalee Cano MD [address] [facility] [place] [address] Resident Internal Medicine 12/02/21 03/20/23 Rosalee Cano MD [address] [facility] [place] [address] Resident - PCP Internal Medicine 02/20/22 03/13/23 Randi Gomes DO [address] [place] [address] Resident - PCP Internal Medicine 03/14/23 07/02/24 documented as of this encounter
--- OUTSIDE RECORDS SUMMARY | 2024-08-02 10:02 | XMS_ITS | Encounter Summary ---
Author Organization [facility] Health Address [address] [facility] [place] [address] Care Team Providers Care Oven Heater Helper Name Role Phone Unavailable Primary Care Provider Unavailabl e Encounter Details Date Type Department Care Team (Late st Contact Info) Description 02/25/2019 9:50 AM CDT Office Visit [facility] [address] [facility] [address] [place] [address] Catherine Salmeron, SENIOR IT ASSISTANT-BURNER OPERATOR [address] [address] Right upper quadrant abdominal pain (Primary Dx); Pericardial cyst (HCC); Essential hypertension; Chest pain, unspecified type; Type 2 diabetes mellitus with complication, without long-term current use of insulin (HCC); Nephropathy; Class 3 severe obesity with serious comorbidity and body mass index (BMI) of 45.0 to 49.9 in adult, unspecified obesity type (HCC); Pain of both shoulder joints; Hyperlipidemia, unspecified hyperlipidemia type; Microcytosis; Healthcare maintenance Social History Tobacco Use [...] Sign Reading Time Taken Comments Blood Pressure 160/80 02/25/2019 9:57 AM CDT Pulse 80 02/25/2019 9:57 AM CDT Temperature 36.8 ??C (98.3 ??F) 02/25/2019 9:57 AM CD T Respiratory Rate - - Oxygen Saturation - - Inhaled Oxygen Concentration - - Weight 135.2 kg (298 lb) 02/25/2019 9:57 AM CDT Height - - Body Mass Index 49.59 12/30/2018 9:20 AM CDT documented in this encounter Progress Notes * Catherine Young, SENIOR IT ASSISTANT-BURNER OPERATOR - 02/25/2019 9:52 AM CDT Internal Medicine Primary Care Progress Note CC: Follow up HPI/Interval History: Mauricio Flores is a 53 year old female presenting for follow up. Patient last seen in [facility] on 11/26/18. Abd pain. -RUQ. -Intermittent. Still comes and goes, but better. -Improved since stopped drinking soda. -Reviewed MRI result. Unremarkable except for pericardial cyst, 2.9x1.2cm. Discussed with cardiology who recommended yearly ECHOs x 2 and then every 5 years if stable. Usually benign if not enlarging. MRI was completed 11/2018. -Notes she had one episode of chest pain after ambulating 5 steps but then pain resolved an has never recurred. HTN. -Taking losartan 100mg and amlodipine 10mg daily. Reporting compliance. Has not taken yet today. -Not checking BP recently. -Denies chest pain, palpitations, SOB, headaches, or vision changes. DM2. -A1C=8.2, 11/20/18. -Checking sugars at home: 130s-234. -Metformin ER 1000mg PO nightly. -Eye exam: 1 year ago. Due. -Foot exam: 11/19/18. -Statin: Due. Wanted to discuss after obtaining labs. -Microalbumin/creatinine ratio: Elevated. Seen by nephrology. Is to stop NSAIDs and work on weight loss. -Denies polydipsia, polyuria, polyphagia. Obesity. -Wt Readings from Last 3 Encounters: 02/25/19 : 298 lb (135.2 kg) 12/30/18 : 289 lb 14.4 oz (131.5 kg) 11/26/18 : 296 lb (134.3 kg) -Denies purpose exercise. -Eating anything. Shoulder pain. -Bilateral. -Intermittently. -Thinks related to her purse. -Improved. -Not taking NSAIDs anymore due to nephropathy. HLD. -Declined statin previously. Ready to start today. -Denies purpose exercise for following any type of diet. Microcytosis. -Noted on labs, but no anemia. -Denies blood in stool or urine. -Notes she is taking an iron supplement but believes it is low dose. Past Medical History 02/25/2019: Reviewed and Updated; see Epic History tab for details Past Surgical History 02/25/2019: Reviewed and Updated; see Epic History tab for details Social History 02/25/2019: Reviewed and Updated; see Epic History tab for details Family History 02/25/2019: Reviewed and Updated; see Epic History tab for details Current Medications: Reviewed and up to date in [facility] Medication tab Current Outpatient Prescriptions Medication Sig ??? amLODIPine (NORVASC) 10 MG tablet Take 1 tablet by mouth once daily ??? aspirin (ASPIRIN) 81 MG tablet ??? Blood Glucose Monitoring Suppl (ACCU-CHEK GUIDE) w/Device KIT ??? Glucose Blood (BLOOD GLUCOSE TEST STRIPS) STRP Use 1 strip TID. ??? Glucose Blood (BLOOD GLUCOSE TEST STRIPS) STRP Use 1 strip TID. ??? LANCETS SUPER THIN 28G MISC Use TID. ??? losartan (COZAAR) 100 MG tablet Take 1 tablet by mouth once daily ??? metFORMIN ER 24hr (GLUCOPHAGE XR) 500 MG tablet Take 2 tablets by mouth daily with dinner No current facility-administered medications for this visit. Allergies: Allergies Allergen Reactions ??? Hydrocodone-Acetaminophen Rash Vicodin ??? Sayre Itching Review of Systems: Gen: Denies fevers, chills Eyes: Denies change in vision Ears, Nose, Mouth, Throat: Denies change in hearing; denies rhinorrhea, nasal pain; denies dysphagia CV: Reports one episode of chest pain that resolved and has not recurred. Resp: Denies SOB, cough GI: Denies abd pain, n/v/d, constipation, melana, BRBPR : Denies dysuria, hematuria, urinary frequency, urinary urgency MS: Reports improved bilateral shoulder pain. Neuro: Denies focal weakness, LOC Endocrine: Denies polyuria, polydipsia Physical Exam: BP 160/80 Pulse 80 Temp 98.3 ??F (36.8 ??C) (Oral) Wt 298 lb (135.2 kg) BMI 49.59 kg/m2 Gen: NAD, conversational, pleasant, cooperative Eyes: EOMI; anicteric, non-injected sclerae Ears: TMs intact and pearly mcgee without exudates bilaterally Nose: Turbinates pink and moist Mouth: Moist oral mucous membrane; no lesions or sores appreciated; no tonsillar exudates Lymph: No supraclavicular, submadibular, cervical LAD CV: [...] 21-29, Pap+HPV q5yr >/= 30 and <65): 05/2018. Reports it was normal. Followed by outside MULTICUT LINE OPERATOR. - CRC screening (50-75): 2015. Due 2020. - Breast ca screening (50-74; mammogram q1-2yrs >50; if 40-50 d/w patient): 05/2018 per patient.Reports it was normal. - Breast cancer prevention (tamoxifen if 35-60 and Yulissa 5-yr risk >1.66%): NA - Tobacco use: Never smoker. - Lung ca screening (55-80 if 30-pack-yr current smoker or quit in last 15 yrs): Never smoker. - Osteoporosis screening (65+): Due at age 65. - Lipid screening (>45 unless additional risk factors): 11/2018. - Statin (mod/high intensity if clinical ASCVD, LDL>190, age 40-75 +DM &??LDL 70-189, or 10yr risk >7.5%): Statin therapy started 02/25/19. - Diabetes screening (BP>135/80, HLD, obesity): 02/2019=7.5%. ? - HIV (once, or annually if high risk): Declined at visit 11/19/18. - HepC (once if patient born between 2610-2025): 08/2014. - ASA ppx (>3% 5yr risk): Currently on daily ASA. - Depression screening: PHQ9??02/28/2019=2 -Obesity/physical activity/diet counseling: Body mass index is 49.59 kg/(m^2). - Immunizations ?- Influenza: Discuss during flu season. ?- HPV (<26): NA ?- Prevnar (>65 if PPSV23 naive, or at least 1 year after PPSV23): Due at age 65. ?- Pneumovax (>65 unless risk factors, 6-12mos after Prevnar): Reports she has had in the past. Declines re- vaccination at visit 11/19/18. ?- Tdap/Td ([id number]): 11/19/18. ?- Zoster (>60): Due at age 60. Labs: Personally reviewed. Imaging: Personally reviewed. Assessment and Plan: 1. Right upper quadrant abdominal pain -Intermittent. -Unremarkable MRI/MRCP on outside imaging (under media tab). -Pain improved. -Notes worsening with carbonated beverages or foods that cause increased gas. To avoid trigger foods. -Continue to monitor clinically. 2. Pericardial cyst -Noted on outside imaging (under media tab). -Pericardial cyst, 2.9x1.2cm. Discussed with cardiology who recommended yearly ECHOs x 2 and then every 5 years if stable. Usually benign if not enlarging. MRI was completed 11/2018. -Will order ECHO at next visit to assess stability. If any increase in size, will send to cardiology. 3. Essential hypertension -BP today still above goal. -Continue losartan 100mg, amlodipine 10mg daily and start chlorthalidone 25mg daily. - chlorthalidone (HYGROTON) 25 MG tablet; Take 1 tablet by mouth once daily Dispense: 90 tablet; Refill: 2 -BP check in 2 weeks. -Encouraged to follow a heart healthy diet and exercise. 4. Chest pain, unspecified type -Noting one episode after ambulating 5 steps. Pain resolved and has not recurred. -If pain recurrs, will initiate cardiac work up. 5. Type 2 diabetes mellitus with complication, without long-term current use of insulin -A1C=7.5 today, down from 8.2%. -Continue metformin ER 1000mg PO nightly. -Eye exam: 1 year ago. Due. Encouraged to schedule. -Foot exam: 11/19/18. -Statin: Atorvastatin 40mg nightly started at visit today. -Microalbumin/creatinine ratio: Elevated in 2019. Following with nephrology. -Encouraged to follow a heart healthy diet and exercise. - HEMOGLOBIN A1C - POINT OF CARE (AMB) [facility] - atorvastatin (LIPITOR) 40 MG tablet; Take 1 tablet by mouth at bedtime Dispense: 90 tablet; Refill: 1 6. Nephropathy -Elevated microalbumin/creatinine ratio. -Evaluated by nephrology. Undergoing further work up. -To work on BP control, DM2 control and weight loss. To stop NSAIDs. 7. Class 3 severe obesity with serious comorbidity and body mass index (BMI) of 45.0 to 49.9 in adult, unspecified obesity type -Body mass index is 49.59 kg/(m^2). -Wt Readings from Last 3 Encounters: 02/25/19 : 298 lb (135.2 kg) 12/30/18 : 289 lb 14.4 oz (131.5 kg) 11/26/18 : 296 lb (134.3 kg) -Encouraged to follow a heart healthy diet and exercise. -Discussed importance of weight loss. 8. Pain of both shoulder joints -Noted improvement. -Thought to be related to her purse. -To avoid NSAIDs due to nephropathy. 9. Hyperlipidemia, unspecified hyperlipidemia type -Noted on labs and history of DM2. -Agreeable to starting statin therapy. - atorvastatin (LIPITOR) 40 MG tablet; Take 1 tablet by mouth at bedtime Dispense: 90 tablet; Refill: 1 -Encouraged to follow a heart healthy diet and exercise. 10. Microcytosis -CBC with microcytosis but without anemia. -Notes she takes an OTC iron supplement. - IRON + TIBC PANEL; Future - FERRITIN; Future - CBC W/O DIFFERENTIAL; Future -Further recommendations pending results. 11. Healthcare maintenance -As above. -Encouraged to follow a heart healthy diet and exercise. Patient to RTC in 2 weeks for BP check and routine visit in 3 months. Call with any questions or concerns in the interim. GIANNA Fritz documented in this encounter Plan of Treatment Upcoming Encounters Date Type Department Care Team (Late st Contact Info) Description 12/15/2024 1:00 PM CDT Office Visit [facility] [address] [facility] [place] [address] Neil Velasquez MD [address] [facility] [place] [address] documented as of this encounter Procedures Procedure Name Priority Date/Time Associated Diagnosis Comments HEMOGLOBIN A1C - POINT OF CARE (AMB) [facility] Routine 02/25/2019 10:09 AM CDT Type 2 diabetes mellitus with complication, without long-term current use of insulin (HCC) documented in this encounter Results * (ABNORMAL) CBC W/O DIFFERENTIAL (02/28/2019 8:43 AM CDT) White Blood Cell Count 6.4 3.8 - 10.8 Thousand/u L [facility] RBC 4.41 3.80 - 5.10 Million/uL [facility] Hemoglobin 10.5(L) 11.7 - 15.5 g/dL [facility] Hematocrit 35.0 35.0 - 45.0 % [facility] MCV 79.4(L) 80.0 - 100.0 fL [facility] MCH 23.8(L) 27.0 - 33.0 pg [facility] MCHC 30.0(L) 32.0 - 36.0 g/dL [facility] RDW 14.6 11.0 - 15.0 % [facility] Platelet Count 364 140 - 400 Thousand/u L [facility] MPV 10.0 7.5 - 12.5 fL [facility] Comment: Test Performed at: [employer] [facility] [id number] [place] [address] ??[phone] KATHY PEREZ DO,MPH Blood BLOOD SPECIMEN / Unknown 02/28/2019 8:43 AM CDT 02/28/2019 8:51 AM CDT Catherine KATZ LAB - HEMATOLOGY ORDERABLES Performing Organization Address [facility] de Phone Number [address] [address] * (ABNORMAL) FERRITIN (02/28/2019 8:43 AM CDT) Ferritin 6(L) 16 - 232 ng/mL [facility] Comment: REPORT COMMENT: PATIENT UNABLE TO VOID; ADVISED TO RETURN FOR COLLECTION. Test Performed at: [facility] [address] [place] [address] ??[phone] KATHY PEREZ DO,MPH Blood BLOOD SPECIMEN / Unknown 02/28/2019 8:43 AM CDT 02/28/2019 8:51 AM CDT [facility] - CHE[facility]STRY ORDERABLES Performing Organization Address [facility] de Phone Number [address] [address] * (ABNORMAL) IRON + TIBC PANEL (02/28/2019 8:43 AM CDT) Iron 22(L) 45 - 160 mcg/dL [facility] TIBC 387 250 - 450 mcg/dL (calc) [facility] % Saturation 6(L) 16 - 45 % (calc) [facility] Comment: Test Performed at: [facility] [address] [place], [place] ??[phone] KATHY PEREZ DO,MPH Blood BLOOD SPECIMEN / Unknown 02/28/2019 8:43 AM CDT 02/28/2019 8:51 AM CDT Catherine Salmeron APRN-BURNER OPERATOR LAB - CHEMISTRY ORDERABLES [facility] [address] [place] [address] * HEMOGLOBIN A1C - POINT OF CARE (AMB) [facility] (02/25/2019 10:09 AM CDT) Hemoglobin A1c POCT 7.5 BLOOD SPECIMEN / Unknown 02/25/2019 10:09 AM CDT Catherine Salmeron APRN-BURNER OPERATOR LAB - POINT OF C ARE ORDERABLES documented in this encounter Visit Diagnoses Diagnosis Right upper quadrant abdominal pain- Primary Abdominal pain, right upper quadrant Pericardial cyst (HCC) Other specified congenital anomaly of heart Essential hypertension Chest pain, unspecified type Type 2 diabetes mellitus with complication, without long-term current use of insulin (HCC) Nephropathy Nephritis and nephropathy, not specified as acute or chronic, with unspecified pathological lesion in kidney Class 3 severe obesity with serious comorbidity and body mass index (BMI) of 45.0 to 49.9 in adult, unspecified obesity type (HCC) Pain of both shoulder joints Hyperlipidemia, unspecified hyperlipidemia type Microcytosis Other abnormality of red blood cells Healthcare maintenance Routine general medical examination at a health care facility documented in this encounter
--- OUTSIDE RECORDS SUMMARY | 2024-08-02 10:02 | XMS_ITS | Encounter Summary ---
Author Organization [facility] Health Address [address] [facility] [place] [address] Care Team Providers Care Spout Positioner Name Role Phone Unavailable Primary Care Provider Unavailabl e Encounter Details Date Type Department Care Team (Late Contact Info) Description 04/16/2019 Orders Only [facility] [address] [facility] [address] [place] [address] Catherine Salmeron, CUBING MACHINE TENDER-EMAIL MARKETING SPECIALIST [address] [facility] [address] [place] [address] Pericardial cyst (HCC) Social History Tobacco Use [...] [facility] [address] [facility] [place] [id number] Neil Velasquez MD [address] [facility]?? [place] [address] documented as of this encounter Procedures Procedure Name Priority Date/Time Associated Diagnosis Comments ECHO COMPLETE Routine 06/20/2019 11:15 AM QUARRYING SPECIALIST Pericardial cyst (HCC) documented in this encounter Results * ECHO COMPLETE (06/20/2019 11:15 AM QUARRYING SPECIALIST) Anatomical Region Laterality Modality Echo 06/20/2019 10:0 9 AM QUARRYING SPECIALIST Narrative Procedure Note Ebony Tucker MD - 06/20/2019 Catherine Salmeron CUBING MACHINE TENDER-EMAIL MARKETING SPECIALIST ECHOCARDIOGRAPHY RADIANT documented in this encounter Visit Diagnoses Diagnosis Pericardial cyst (HCC) Other specified congenital anomaly of heart documented in this encounter
--- OUTSIDE RECORDS SUMMARY | 2024-08-02 10:02 | XMS_ITS | Encounter Summary ---
Author Organization [facility] Health Address [address] [place] [address] Care Team Providers Care Certified Mortician Name Role Phone Unavailable Primary Care Provider Unavailabl e Encounter Details Date Type Department Care Team (Latest Contact Info) Description 10/23/2014 Hospital Outpatient Visit Historic [facility] [address] [place] [address] Farheen Lafleur MD [address] [facility] [address] [place] [address] Discharge Disposition: Home or Self Care Social History Tobacco Use Types Packs/Day Years Used Date Smoking Tobacco: Never Assessed Sex and Gender Information Value Date Recorded Sex Assigned at Not on file Gender Identity Not on file Sexual Orientation Not on file documented as of this encounter Plan of Treatment Upcoming Encounters Date Type Department Care Team (Late st Contact Info) Description 12/15/2024 1:00 PM CDT Office Visit [facility] - Internal Med [address] [facility] [place] [phone] Neil Velasquez MD [address] [facility] [place] [address] documented as of this encounter Visit Diagnoses Not on filedocumented in this encounter
--- OUTSIDE RECORDS SUMMARY | 2024-08-02 10:02 | XMS_ITS | Encounter Summary ---
Author Organization [facility] Health Address [address] [facility] [place] [address] Care Team Providers Care Director It Project Name Role Phone Unavailable Primary Care Provider Unavailabl e Encounter Details Date Type Department Care Team (Latest Contact Info) Description 03/22/2017 Hospital Outpatient Visit Historic [facility] [address] [place] [address] Farheen Lafleur MD [address] [facility] [address] [place] [address] Discharge Disposition: Home or Self Care Social [...] [facility] [address] [facility] [place] [phone] Neil Velasquez MD [address] [facility] [place] [address] documented as of this encounter Visit Diagnoses Not on filedocumented in this encounter
--- OUTSIDE RECORDS SUMMARY | 2024-08-02 10:02 | XMS_ITS | Encounter Summary ---
Author Organization [facility] Health Address [address] [facility] [place] [address] Care Team Providers Care City Weighmaster Name Role Phone Unavailable Primary Care Provider Unavailabl e Encounter Details Date Type Department Care Team (Latest Contact Info) Description 11/03/2014 Hospital Outpatient Visit Historic [facility] MRI [address] [place] [address] Discharge Disposition: Home or Self Care Social [...] [address] [facility] [place] [address] Neil Velasquez MD [address] [facility] [place] [address] documented as of this encounter Procedures Procedure Name Priority Date/Time Associated Diagnosis Comments MRI BRAIN WWO CONTRAST Routine 11/03/2014 11:57 AM CDT CREATININE BLOOD - POCT (IP) [facility] Routine 11/03/2014 documented in this encounter Results * MRI BRAIN WWO CONTRAST (11/03/2014 11:57 [...] ORDERABLES * CREATININE BLOOD - POCT (IP) [facility] (11/03/2014) Creatinine POCT 0.73 0.3 - 1.3 mg/dL [facility] eGFR POCT 60 60 ml/min [facility] 11/03/2014 Farheen Lafleur MD LAB - POINT OF CARE ORDERABLES [facility] documented in this encounter Visit Diagnoses Diagnosis Family history of stroke (cerebrovascular) documented in this encounter
--- OUTSIDE RECORDS SUMMARY | 2024-08-02 10:02 | XMS_ITS | Encounter Summary ---
Author Organization [facility] Health Address [address] [facility] [place] [address] Care Team Providers Care Seed Service Advisor Name Role Phone Unavailable Primary Care Provider Unavailabl e Reason for Visit * Reason Comments Follow-up Encounter Details Date Type Department Care Team (Late st Contact Info) Description 11/26/2018 9:50 AM CDT Office Visit [facility] [address] [address] Catherine Salmeron, REHABILITATION THERAPY TECHNICIAN-FACTORY SUPERINTENDENT [address] OF [facility] [place] [address] Impacted cerumen of right ear (Primary Dx); Right upper quadrant abdominal pain; Essential hypertension; Type 2 diabetes mellitus with complication, without long-term current use of insulin (HCC); Nephropathy; Healthcare maintenance Social History Tobacco Use Types [...] Sign Reading Time Taken Comments Blood Pressure 130/88 11/26/2018 9:58 AM CDT Pulse 66 11/26/2018 9:58 AM CDT Temperature 36.2 ??C (97.1 ??F) 11/26/2018 9:58 AM CD T Respiratory Rate - - Oxygen Saturation - - Inhaled Oxygen Concentration - - Weight 134.3 kg (296 lb) 11/26/2018 9:58 AM CDT Height - - Body Mass Index 49.26 11/13/2017 9:50 AM CDT documented in this encounter Patient Instructions * Patient Instructions* Natalia Dotson - 11/26/2018 9:59 AM CDT How to Contact Us Between [...] to be seen. Please call us at [phone], option 1 thenoption 1 in the morning you would like to be seen. For scheduling routine appointments, requesting refills or leaving a message for your doctor, the office phone is [phone]. You will be given options to get to the assistance you need. Phone lines are open from 8:00 am to4:30 pm Sunday through Sunday. All prescription refills must be requested during regular office phone hours. Our fax number is [phone]. After hours urgent calls that cannot wait untill phone lines are open on the next business day are given to the General Internal Medicine physician applications tester. Please call [phone]. Identify yourself as a patient in our practice and give the tying in machine operator your doctor's name. The tying in machine operator will contact the physician applications tester. You can generally expect a return call within 30 minutes. On weekends, physicians are seeing hospitalized patients and there maybe a longer wait. Visit our website at [email or web address] for information about our practice and an interactive health encyclopedia. Our clinic's missed appointment policy is: - Patients with 3 consecutively missed appointments OR 3 missed appointments in a 12 month period will no longer be seen by General Internal Medicine. They will be asked to seek Primary Care outside of [facility]. - A missed appointment is defined as: * An appointment cancelled less than 24 hours in advance *Arriving to a scheduled appointment too late to be seen (Patients who arrive to clinic later than their scheduled appointment time may not be seen) * Not showing up for an appointment documented in this encounter Progress Notes * Catherine Young, REHABILITATION THERAPY TECHNICIAN-FACTORY SUPERINTENDENT - 11/26/2018 9:51 AM CDT Internal Medicine Primary Care Progress Note CC: Chief Complaint Patient presents with ??? Follow-up HPI/Interval History: Mauricio Flores is a 53 year old female presenting for ear flushing. Patient last seen [facility] clinic on 11/19/18. Cerumen impaction. -Was found to have right ear cerumen impaction at last visit. -Has decreased hearing in the right ear. -Was prescribed debrox x1 week. Reports she has been using. Abdominal pain. -Reports to having MRI, but unsure of result. -Records requested at pervious visit. -Continues to have intermittently, but feels it is improving somewhat. HTN. -Currently taking losartan 100mg and amlodipine 5mg PO daily. Reports compliance. -BMP unremarkable. -Checking BP at home: 150s/80s. DM2. -A1C=8.2, 11/20/18. -Restarted metformin ER 1000mg PO nightly at last visit. -Eye exam: 1 year ago. Due. -Foot exam: 11/19/18. -Statin: Due. Wanted to discuss after obtaining labs. Past Medical History 11/26/2018: Reviewed and Updated; see Epic History tab for details Past Surgical History 11/26/2018: Reviewed and Updated; see Epic History tab for details Social History 11/26/2018: Reviewed and Updated; see Epic History tab for details Family History 11/26/2018: Reviewed and Updated; see Epic History tab for details Current Medications: Reviewed and up to date in Epic Medication tab Current Outpatient Prescriptions Medication Sig ??? amLODIPine (NORVASC) 5 MG tablet Take 5 mg by mouth once daily ??? aspirin (ASPIRIN) 81 MG tablet ??? carbamide peroxide (DEBROX) 6.5 % otic solution Instill 5-10 drops into right ear 2 times daily ??? diclofenac sodium EC (VOLTAREN) 75 MG tablet Take 75 mg by mouth BID. ??? Glucose Blood (BLOOD GLUCOSE TEST STRIPS) STRP Use 1 strip TID. ??? Glucose Blood (BLOOD GLUCOSE TEST STRIPS) STRP Use 1 strip TID. ??? LANCETS SUPER THIN 28G MISC Use TID. ??? losartan (COZAAR) 100 MG tablet TAKE 1 TABLET BY MOUTH DAILY. ??? metFORMIN ER 24hr (GLUCOPHAGE XR) 500 MG tablet Take 2 tablets by mouth daily with dinner No current facility-administered medications for this visit. Allergies: Allergies Allergen Reactions ??? Hydrocodone-Acetaminophen Rash Vicodin ??? [place] Itching Review of Systems: Gen: Denies fevers, chills Ears: Reports decreased hearing from right ear CV: Denies chest pain Resp: Denies SOB GI: Denies n/v/d, constipation, melana, BRBPR. Reports intermittent RUQ pain Neuro: Denies focal weakness, LOC Physical Exam: BP 130/88 Pulse 66 Temp 97.1 ??F (36.2 ??C) (Oral) Wt 296 lb (134.3 kg) BMI 49.26 kg/m2 Gen: NAD, conversational, pleasant, cooperative Eyes: EOMI; anicteric, non-injected sclerae Ears: Left TM intact and pearly mcgee without exudates. Unable to view right TM due to cerumen impaction CV: Normal S1, S2; RRR; no MRGs appreciated Pulm: CTAB; no wheezes or crackles GI: Abd soft, NT to palpation; no guarding or rebound Neuro: No focal neurologic deficits Psych: AOx3; calm, congruent affect Cerumen Disimpaction Warm water irrigated into right external canal. Large amount of cerumen flushed from right external canal. TMs visible with light reflex. No redness or tenderness to external canal. Patient tolerated procedure well. Preventative Care/Health Maintenance: - Cervical cancer screening (Pap q3yr 21-29, Pap+HPV q5yr >/= 30 and <65): 05/2018. Reports it was normal Followed by outside [facility]. - CRC screening (50-75): 2015. Due 2020. [...] if clinical ASCVD, LDL>190, age 40-75 +DM & LDL 70- 189, or 10yrrisk >7.5%): ASCVD=12.4%. Discuss at next visit. - Diabetes screening (BP>135/80, HLD, obesity): 11/2018=8.2%. - HIV (once, or annually if high risk): Declined at visit 11/19/18. - HepC (once if patient born between 5727-8102): 08/2014. - ASA ppx (>3% 5yr risk): Currently on daily ASA. - Depression screening: PHQ9 11/19/2018=3 -Obesity/physical activity/diet counseling: (Body mass index is 50.42 kg/(m^2). - Immunizations - Influenza: Discuss during flu season. - HPV (<26): NA - Prevnar (>65 if PPSV23 naive, or at least 1 year after PPSV23): Due at age 65. - Pneumovax (>65 unless risk factors, 6-12mos after Prevnar): Reports she has had in the past. Declines re-vaccination at visit today 11/19/18. - Tdap/Td ([id number]): 11/19/18. - Zoster (>60): Due at age 60. Labs: Personally reviewed. Assessment and Plan: 1. Impacted cerumen of right ear -S/P debrox use. Flushing as above. 2. Right upper quadrant abdominal pain -Reports to having an MRI done with previous PCP. Unsure of results. -Abdominal pain seems to be improving though, per patient report. -Records requested at last visit. Encouraged patient to call previous PCP to get records sent. 3. Essential hypertension -BP today at goal. -Continue losartan 100mg and amlodipine 10mg PO daily. 4. Type 2 diabetes mellitus with complication, without long-term current use of insulin -A1C=8.2, 11/20/18. -Restarted metformin ER 1000mg PO nightly at last visit. -Eye exam: 1 year ago. Due. -Foot exam: 11/19/18. -Statin: Due. Wanted to discuss after obtaining labs. Plan to discuss at next visit. 5. Nephropathy -Elevated microalbumin/creatinine ratio. Suspect due to DM2. - PROTEIN URINE TIMED QUANTITATIVE - CREATININE URINE TIMED 6. Healthcare maintenance -As above. Patient to RTC in 3 months. Call with any questions or concerns in the interim. GIANNA Fritz documented in this encounter Plan of Treatment Upcoming Encounters Date Type Department Care Team (Late st Contact Info) Description 12/15/2024 1:00 PM CDT Office Visit [facility] Physician [facility] - Internal Med [address] [facility] [place] [address] Neil Velasquez MD [address] [facility] [place] [address] Scheduled Orders Name Type Priority Associated Diagnoses Orde r Schedule CREATININE URINE TIMED Lab Routine Nephropathy Ordered: 11/26/2018 documented as of this encounter Procedures Procedure Name Priority Date/Time Associated Diagnosis Comments PROTEIN URINE TIMED QUANTITATIVE Routine 11/30/2018 9:24 AM CDT Nephropathy documented in this encounter Results * (ABNORMAL) PROTEIN URINE TIMED QUANTITATIVE (11/30/2018 9:24 AM CDT) Protein 24 Hour Urine 285(H) <150 mg/24 h [facility] Comment: TOTAL URINE VOLUME: 1500/24 REPORT COMMENT: AN UPDATE OR CORRECTION HAS BEEN MADE TO NAME Test Performed at: [employer] [email or web address] [id number] [place] [address] ??[id number] KATHY PEREZ DO,MPH Urine TIMED URINE SPECIMEN / Unknown 11/30/2018 9:24 AM CDT 11/30/2018 9:25 AM CDT Catherine [facility] - URINE CHEM ISTRY ORDERABLES [facility] [address] [place] [address] documented in this encounter Visit Diagnoses Diagnosis Impacted cerumen of right ear- Primary Impacted cerumen Right upper quadrant abdominal pain Abdominal pain, right upper quadrant Essential hypertension Type 2 diabetes mellitus with complication, without long-term current use of insulin (HCC) Nephropathy Nephritis and nephropathy, not specified as acute or chronic, with unspecified pathological lesion in kidney Healthcare maintenance Routine general medical examination at a health care facility documented in this encounter
--- OUTSIDE RECORDS SUMMARY | 2024-08-02 10:02 | XMS_ITS | Encounter Summary ---
Author Organization [facility] Health Address [address] [facility] [place] [address] Care Team Providers Care Cloth Mender Name Role Phone Unavailable Primary Care Provider Unavailabl e Reason for Visit * Reason Onset Date Comments Results 01/27/2019 Encounter Details Date Type Department Care Team (Late st Contact Info) Description 01/27/2019 Telephone [facility] [address] [address] Catherine Salmeron, GIANNA [address] OF [facility] [place] [address] Results Social History Tobacco Use Types Packs/Day [...] Telephone Encounter - Catherine Young APRN-CNP - 01/27/2019 9:57 AM CDT Returned patient's call. 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 Yearly ECHOs x 2 and then every 5 years if stable. Usually benign if not enlarging (per cardiology). -Reports recurrent RUQ pain for about 5 days. Denies nausea, vomiting, diarrhea, fever or chills. Better with: Belching. Worse with: Drinking soda. ?Gas like in nature. Encouraged to avoid gassy foods and carbonated beverages. -To be seen in [facility] if no improvement. Verbalized understanding. GIANNA Fritz * Telephone Encounter - Mauricio Blackwood - 01/27/2019 9:47 AM CDT Pt called to inquire if the provider has received the MRI images that were sent from [place]. Upon chartreview, caller verified that the images were being sent for [facility], and informed they have been received by [facility] office. Caller informed that a message would be sent to the provider requesting that she review the images and give the pt a call back at [phone] to further discuss them, caller verbalized understanding and stated the pain has come back Message routed to the provider for further review and assistance documented in this encounter Plan of Treatment Upcoming Encounters Date Type Department Care Team (Late st Contact Info) Description 12/15/2024 1:00 PM CDT Office Visit [facility] Physician Group - Internal Med [address] [facility], [place] [address] Neil Velasquez MD [address] [facility] [place] [address] documented as of this encounter Visit Diagnoses Not on filedocumented in this encounter
--- OUTSIDE RECORDS SUMMARY | 2024-08-02 10:02 | XMS_ITS | Encounter Summary ---
Author Organization [facility] Health Address [address] [facility] [place] [address] Care Team Providers Care Corporate Driver Name Role Phone Unavailable Primary Care Provider Unavailabl e Reason for Visit * Reason Onset Date Comments MEDICATION REFILL 02/03/2019 Encounter Details Date Type Department Care Team ([facility] Contact Info) Description 02/03/2019 Refill [facility] [address] [address] Catherine Salmeron, ANIMAL ATTENDANT-[facility] [address] [place] [address] MEDICATION REFILL Social History Tobacco Use Types [...] * Telephone Encounter - Ebony Mabry - 02/03/2019 1:34 PM CDT Refill request sent per protocol to provider NEREIDA 11-26-18 NOV 02-25-19 documented in this encounter Plan of Treatment Upcoming Encounters Date Type Department Care Team ([facility] Contact Info) Description 12/15/2024 1:00 PM CDT Office Visit [facility] - Internal Med [address] [facility], [place] [id number] Neil Velasquez MD [address] [facility] [place] [address] documented as of this encounter Visit Diagnoses Not on filedocumented in this encounter
--- OUTSIDE RECORDS SUMMARY | 2024-08-02 10:02 | XMS_ITS | Encounter Summary ---
Author Organization [facility] Health Address [address] [facility] [place] [address] Care Team Providers Care Literacy Specialist Name Role Phone Unavailable Primary Care Provider Unavailabl e Encounter Details Date Type Department Care Team (Latest Contact Info) Description 11/03/2014 Hospital Outpatient Visit [facility] [address] [place] [address] Farheen Lafleur MD [address] [facility] [address] [place] [address] Discharge Disposition: Home or Self Care Social [...] 1:00 PM CDT Office Visit [facility] Physician [facility] - Internal Med [address] [facility], [place] [id number] Neil Velasquez MD [address] [facility] [place] [address] documented as of this encounter Visit Diagnoses Not on filedocumented in this encounter
--- OUTSIDE RECORDS SUMMARY | 2024-08-02 10:02 | XMS_ITS | Encounter Summary ---
Author Organization [facility] Address [address] [facility] [place] [address] Care Team Providers Care Inspector Repairer Sandstone Name Role Phone Rosalee Cano MD Primary Care Provider [phone] Rosalee Cano MD Primary Care Provider [phone] Lala Tello MD Primary Care Provider [phone] Rosalee Cano MD Unavailable Rosalee Cano MD Unavailable [phone] Ronald Casarez MD Primary Care Provider Lala Tello MD Primary Care Provider [phone] Ronald Casarez MD Primary Care Provider [phone] Randi Gomes DO Unavailable [phone] Randi Gomes DO Primary Care Provider Neil Velasquez MD Primary Care Provider [phone] Reason for Visit * Reason Onset Date Comments MEDICATION REFILL 11/11/2018 Appointment 11/11/2018 Encounter Details Date Type Department Care Team (Late st Contact Info) Description 11/11/2018 Refill [facility] [address] [address] Unknown, Provider MEDICATION REFILL; Appointment Social History Tobacco Use Types Packs/Day Years [...] Telephone Encounter - Catherine Young APRN-CNP - 11/19/2018 10:31 AM CDT Patient sen 11/19/18. Medication discontinued. She is aware. * Telephone Encounter - Bridgette Justice - 11/18/2018 5:39 PM CDT 1st Attempt Called the patient and scheduled zuniga appointment for 11/19/18 at 9:50 am * Telephone Encounter - Carmel Burgess - 11/11/2018 8:57 AM CDT Pharmacy faxing in refill request for patient's HCTZ. Medication attached. Allergies reviewed. NEREIDA:greater than 1 year NOV: none at this time Former [facility] patient. Message forwarded to [facility] scheduling to assist with establishing care with a new provider. documented in this encounter Plan of Treatment Upcoming Encounters Date Type Department Care Team (Late st Contact Info) Description 12/15/2024 1:00 PM CDT Office Visit [facility] Physician Group - Internal Med [address] [facility], [place] [phone] Neil Velasquez MD [address] [facility] [place] [address] documented as of this encounter Visit Diagnoses Not on filedocumented in this encounter Care Teams Inspector Repairer Sandstone Relationship Specialty Start Date End Date Rosalee Cano MD [address] [facility] [address] DIV [place] [address] PCP - General 12/10/20 04/12/21 Rosalee Cano MD [address] [place] [address] PCP - General 05/04/21 12/01/21 Lala Tello MD [address] DIV OF [facility] [place] [address] PCP - General Internal Medicine 12/02/21 11/21/22 Ronald Casarez MD [address] [place] [phone] PCP - General Internal Medicine 11/22/22 11/22/22 Lala Tello MD [address] [place] [address] PCP - General 11/23/22 12/05/22 Ronald Casarez MD [address] [place] [address] PCP - General Internal Medicine 12/06/22 05/20/23 Randi Gomes DO [address] [place] [address] PCP - General Internal Medicine 05/21/23 10/23/23 Neil Velasquez MD [address] [place] [address] PCP - General Internal Medicine 10/24/23 Rosalee Cano MD [address] [place] [address] Resident Internal Medicine 12/02/21 03/20/23 Rosalee Cano MD [address] DIV [place] [address] Resident - PCP Internal Medicine 02/20/22 03/13/23 Randi Gomes DO [address] [place] [address] Resident - PCP Internal Medicine 03/14/23 07/02/24 documented as of this encounter
--- OUTSIDE RECORDS SUMMARY | 2024-08-02 10:02 | XMS_ITS | Encounter Summary ---
Author Organization [facility] Health Address [address] [facility] [place] [address] Care Team Providers Care Sourcing Analyst Name Role Phone Unavailable Primary Care Provider Unavailabl e Encounter Details Date Type Department Care Team (Late Contact Info) Description 07/05/2012 Emergency Department Historic [facility] [address] [place] [address] Miguel Angel Banegas MD [facility] [place] [phone] Discharge Disposition: Home or Self Care Social [...] [facility] [address] [facility], [place] [phone] Neil Velasquez MD [address] [facility] [place] [address] documented as of this encounter Procedures Procedure Name Priority Date/Time Associated Diagnosis Comments CT ABDOMEN PELVIS W CONTRAST STAT 07/05/2012 6:20 PM FREEZING MACHINE OPERATOR HCG URINE QUALITATIVE - POCT (IP) [facility] Routine 07/05/2012 2:17 PM FREEZING MACHINE OPERATOR HCG BLOOD QUALITATIVE Routine 07/05/2012 2:17 PM FREEZING MACHINE OPERATOR URINALYSIS W/MICROSCOPIC NO CULTURE STAT 07/05/2012 2:16 PM FREEZING MACHINE OPERATOR CBC W AUTO DIFFERENTIAL STAT 07/05/2012 2:16 PM FREEZING MACHINE OPERATOR COMPREHENSIVE METABOLIC PANEL STAT 07/05/2012 2:16 PM FREEZING MACHINE OPERATOR LIPASE BLOOD STAT 07/05/2012 2:16 PM FREEZING MACHINE OPERATOR GLUCOSE - POINT OF CARE (AMB) [facility] Routine 07/05/2012 2:04 PM FREEZING MACHINE OPERATOR GLUCOSE - POINT OF CARE (AMB) [facility] Routine 07/05/2012 2:04 PM FREEZING MACHINE OPERATOR GLUCOSE ACCUCHECK Routine 07/05/2012 2:0 1 PM FREEZING MACHINE OPERATOR documented in this encounter Results * CT ABDOMEN PELVIS W CONTRAST (07/05/2012 6:20 PM FREEZING MACHINE OPERATOR) Anatomical Region Laterality Modality Abdomen, Pelvis Other Impressions 07/06/2012 12:01 PM FREEZING MACHINE OPERATOR Impression: 1. No acute process within the abdomen or pelvis. No findings to explain clinical symptoms. 2. A 3 mm right middle lobe pulmonary nodule, highly likely benign. If the patient has known risk factors for malignancy such as smoking, followup in 12 months is recommended. Preliminary results were discussed with Dr. Zheng in the ED by the furnishings conservator resident on 07/05/2012 at 1855. Report dictated by Jose E Boyce M.D. (resident). I, Dr. JOSE MICHELLE M.D. have personally reviewed and interpreted this examination/study. This report was electronically signed by JOSE MICHELLE M.D. ??on 07/06/2012 12:01 PM . Narrative 07/06/2012 12:01 PM FREEZING MACHINE OPERATOR CT abdomen with contrast CT pelvis with [...] osseous structures are intact. Procedure Note Jose Michelle MD - 11/11/2017 CT abdomen with contrast [...] E Boyce M.D. (resident). I, Dr. JOSE MICHELLE M.D. have personally reviewed and interpreted thisexamination/study. This report was electronically signed by JOSE MICHELLE M.D. on07/06/2012 12:01 PM . Anusha Contreras MD CT ORDERABLES * HCG BLOOD QUALITATIVE (07/05/2012 2:17 PM FREEZING MACHINE OPERATOR) NEGATIVE NEGATIVE [facility] Comment:PERFORMED BY: DANILO MAZARIEGOS 07/05/2012 2:17 PM FREEZING MACHINE OPERATOR 07/05/2012 7:43 PM FREEZING MACHINE OPERATOR Anusha Contreras MD LAB - CHEMISTRY [place] [address] [phone] * HCG URINE QUALITATIVE - POCT (IP) [facility] (07/05/2012 2:17 PM FREEZING MACHINE OPERATOR) Test Urine negative [facility] Urine specimen (specimen) 07/05/2012 2:17 PM FREEZING MACHINE OPERATOR Sara FLORES LAB - POINT OF CARE ORDERABLES [facility] * LIPASE BLOOD (07/05/2012 2:16 PM FREEZING MACHINE OPERATOR) Lipase 16 8 - 78 Units/L [facility] Serum 07/05/2012 2:16 PM FREEZING MACHINE OPERATOR 07/05/2012 2:22 PM FREEZING MACHINE OPERATOR Sara FLORES LAB - CHEMISTRY ORDE GATITODIONNA Performing Organization Address [facility]/ZIP Co de Phone Number [address] [phone] * (ABNORMAL) COMPREHENSIVE METABOLIC PANEL (07/05/2012 2:16 PM FREEZING MACHINE OPERATOR) BUN 9 7 - 26 mg/dL [facility] Creatinine 0.8 0.6 - 1.2 mg/dL [facility] eGFR by MDRD > 60 ML/MIN [facility] Comment: Chronic kidney disease: ??<60 ml/min Kidney failure: ?<15 ml/min Based on BSA of 1.73m2. Sodium 135(L) 136 - 145 mmol/L [facility] Potassium 3.4(L) 3.5 - 4.5 mmol/L [facility] Chloride 100 98 - 107 mmol/L [facility] CO2 25 22 - 29 mmol/L [facility] Glucose 117(H) 70 - 115 mg/dL [facility] Calcium 9.7 8.4 - 10.2 mg/dL [facility] Protein Total 8.6(H) 6.0 - 8.3 g/dL [facility] Albumin 3.8 3.4 - 5.0 g/dL [facility] Bilirubin Total 0.6 0.2 - 1.2 mg/dL [facility] Alkaline Phosphatase 114 40 - 150 Units/L [facility] ALT 17 0 - 55 Units/L [facility] AST 17 5 - 34 Units/L [facility] Anion Gap 13 8 - 18 [facility] BUN/Creatinine Ratio 11 7 - 23 [facility] Osmolality Calculation 265(L) 270 - 300 mOsm/kg [facility] Albumin/Globulin Ratio 0.8(L) 1.1 - 2.3 [facility] Serum 07/05/2012 2:16 PM FREEZING MACHINE OPERATOR 07/05/2012 2:22 PM FREEZING MACHINE OPERATOR Sara FLORES LAB - CHEMISTRY ORDDarryn GATITODIONNA Performing Organization Address [facility]/ZIP Co de Phone Number [address] [phone] * (ABNORMAL) CBC W AUTO DIFFERENTIAL (07/05/2012 2:16 PM FREEZING MACHINE OPERATOR) WBC 8.4 3.5 - 10.5 10^3/uL [facility] RBC 4.95 3.90 - 5.00 10^6/uL [facility] Hemoglobin 12.5 12.0 - 15.5 g/dL [facility] Hematocrit 38.4 35.0 - 45.0 % [facility] MCV 77.6(L) 81.0 - 97.0 FL [facility] MCH 25.3(L) 28.0 - 34.0 PG [facility] MCHC 32.6 32.0 - 36.0 G/DL [facility] Platelet 400 150 - 400 10^3/uL [facility] RDW 15.3(H) 11.2 - 14.8 % [facility] RDW-SD 43.2 36 - 50 FL [facility] MPV 10.6 9.3 - 12.8 FL [facility] Neutrophils % 64.1 35.0 - 70.0 % [facility] Lymphocytes % 28.9 19.7 - 55.1 % [facility] Monocytes % 6.2 3 - 15 % [facility] Eosinophils % 0.6 0.0 - 6.0 % [facility] Basophils % 0.2 0.0 - 1.5 % [facility] Neutrophils Absolute 5.4 1.7 - 7.0 10^3/uL [facility] Lymphocyte Absolute 2.4 0.8 - 2.9 10^3/uL [facility] Monocytes Absolute 0.5 0.14 - 0.66 10^3/uL [facility] Eosinophils Absolute 0.05 0.00 - 0.22 10^3/uL [facility] Basophils Absolute 0.02 0.02 - 0.06 10^3/uL [facility] Differential Type AUTO DIFFERENTIAL [facility] Venous blood specimen (specimen) 07/05/2012 2:16 PM FREEZING MACHINE OPERATOR 07/05/2012 2:22 PM FREEZING MACHINE OPERATOR Sara FLORES LAB - HEMATOLOGY ORD ERABLES [address] [phone] * (ABNORMAL) URINALYSIS W/MICROSCOPIC NO CULTURE (07/05/2012 2:16 PM FREEZING MACHINE OPERATOR) Color UA YELLOW STRW,YELLOW [facility] Clarity UA CLEAR CLEAR [facility] Specific [place] Urine 1.006 1.001 - 1.030 [facility] pH UA 6.0 5.0 - 8.0 [facility] Protein UA TRACE <20 mg/dL [facility] Glucose UA NEGATIVE NEGATIVE mg/dL [facility] Ketones NEGATIVE NEGATIVE mg/dL [facility] Bilirubin UA NEGATIVE NEGATIVE mg/dL [facility] Blood UA NEGATIVE NEGATIVE [facility] Nitrite UA NEGATIVE NEGATIVE [facility] Leukocyte Esterase NEGATIVE NEGATIVE [facility] Urobilinogen UA < 2.0 <2.0 mg/dL [facility] RBC Urine 1 0 - 8 /HPF [facility] WBC Urine < 1 0 - 2 /HPF [facility] Bacteria Urine OCCASIONAL( A) <OCCASIONAL /HPF [facility] Squamous Epithelial Cells UA 2(H) 0 - 1 /HPF [facility] Urine specimen (specimen) URINE SPECIMEN OBTAINED BY CLEAN CATCH PROCEDURE / Unknown 07/05/2012 2:16 PM FREEZING MACHINE OPERATOR 07/05/2012 2:22 PM FREEZING MACHINE OPERATOR Sara FOLRES LAB - URINALYSIS ORD ERABLES Performing Organization Address [facility]/ZIP Co de Phone Number [address] [phone] * GLUCOSE - POINT OF CARE (AMB) [facility] (07/05/2012 2:04 PM FREEZING MACHINE OPERATOR) Anusha Contreras MD LAB - POINT OF CARE ORDERABLES Performing Organization Address [facility]/ZIP Co de Phone Number [facility] * GLUCOSE - POINT OF CARE (AMB) [facility] (07/05/2012 2:04 PM FREEZING MACHINE OPERATOR) Glucose POCT 119 mg/dL [facility] Capillary blood specimen (specimen) 07/05/2012 2:04 PM FREEZING MACHINE OPERATOR Anusha Contreras MD LAB - POINT OF CARE ORDERABLES [facility] * (ABNORMAL) GLUCOSE ACCUCHECK (07/05/2012 2:01 PM FREEZING MACHINE OPERATOR) Glucose, Fingerstick 119(H) 70 - 110 MG/DL [facility] Comment:PERFORMED BY: DANILO MAZARIEGOS 07/05/2012 2:01 PM FREEZING MACHINE OPERATOR 07/05/2012 2:15 PM FREEZING MACHINE OPERATOR Anusha Contreras MD LAB - CHEMISTRY [place] [address] [phone] documented in this encounter Visit Diagnoses Diagnosis Abdominal pain, generalized documented in this encounter
--- OUTSIDE RECORDS SUMMARY | 2024-08-02 10:02 | XMS_ITS | Encounter Summary ---
Author Organization [facility] Health Address [address] [facility] [place] [address] Care Team Providers Care Pin Pusher Name Role Phone Unavailable Primary Care Provider Unavailabl e Reason for Referral * Radiology Services (Routine) - Closed Specialty Diagnoses / Procedures Referred By Jimmy t Referred To Contact Ultrasound Diagnoses Proteinuria, unspecified type Essential hypertension Procedures US RETROPERITONEAL COMPLETE Roberto Manrique MD [address] [phone] [address] Referral ID Status Reason Start Date Expiration Date Visits Re quested Visits Authorized [id number] Closed 12/30/2018 06/28/2019 1 1 Reason for Visit * Reason Comments Establish Care * Evaluate & Treat (Routine) - Closed Specialty Diagnoses / Procedures Referred By Contac t Referred To Contact Nephrology Diagnoses Proteinuria, unspecified type Catherine Salmeron, CLAY STRUCTURE BUILDER AND SERVICER-UKE OPERATOR [address] [place] [address] [facility] Neph [phone] [address] Referral ID Status Reason Start Date Expiration Date V isits Requested Visits Authorized [id number] Closed Specialty Services Required 12/03/2018 06/01/2019 1 1 Encounter Details Date Type Department Care Team (Late st Contact Info) Description 12/30/2018 9:20 AM CDT Office Visit [facility] - Nephrology [address] [place] [address], [place] [address] Lauryn Fu MD [address] [place] [address] [address] [place] [address] Type 2 diabetes mellitus with complication, with long-term current use of insulin (HCC) (Primary Dx); Proteinuria, unspecified type; Class 3 severe obesity with serious comorbidity and body mass index (BMI) of 50.0 to 59.9 in adult, unspecified obesity type (HCC); Essential hypertension Social History Tobacco Use Types [...] Sign Reading Time Taken Comments Blood Pressure 181/81 12/30/2018 9:20 AM CDT Pulse 61 12/30/2018 9:20 AM CDT Temperature 36.8 ??C (98.2 ??F) 12/30/2018 9:20 AM CD T Respiratory Rate 18 12/30/2018 9:20 AM CDT Oxygen Saturation 100% 12/30/2018 9:20 AM CDT Inhaled Oxygen Concentration - - Weight 131.5 kg (289 lb 14.4 oz) 12/30/2018 9:20 AM CDT Height 165.1 cm (5' 5 ) 12/30/2018 9:20 AM CDT Body Mass Index 48.24 12/30/2018 9:20 AM CDT documented in this encounter Progress Notes * Lauryn Fu MD - 12/30/2018 9:26 AM CDT Patient Name: Mauricio Flores Ne[facility]rology Clinic : New Patient Chief complaint: Proteinuria HPI: Mauricio Flores is a 53 year old female with a PMHx of [...] Medical History: Diagnosis Date ??? Hypertension ??? Type 2 diabetes mellitus PSH: Past Surgical History: Procedure Laterality Date ??? Section x2 ??? Cholecystectomy ??? Hernia Repair FH: Family History Problem Relation Age of Onset ??? Diabetes Mother ??? Diabetes Maternal Grandmother ??? Diabetes Paternal Grandmother ??? Cancer Maternal Grandfather ??? Cancer Father ??? Hypertension Sister SH: Social History Social History ??? Marital status: Spouse name: N/A ??? Number of children: 2 ??? Years of education: N/A Social History Main Topics ??? Smoking status: Never Smoker ??? Smokeless tobacco: Never Used ??? Alcohol use 0.6 oz/week ??? Drug use: No ??? Sexual activity: Not on file Other Topics Concern ??? Not on file Social History Narrative 2 adult children, 30 and 34. . Stays at home. Medications: Allergies: Allergies Allergen Reactions ??? Hydrocodone-Acetaminophen Rash Vicodin ??? Oracle Itching Vitals: Vitals: 12/30/18 0920 BP: (!) 181/81 Pulse: 61 Resp: 18 Temp: 98.2 ??F (36.8 ??C) SpO2: 100% Weight: 131.5 kg (289 lb 14.4 oz) Height: 1.651 m (5' 5 ) Estimated body mass index is 48.24 kg/(m^2) as calculated from the following: Height as of this encounter: 1.651 m (5' 5 ). Weight as of this encounter: 131.5 kg (289 lb 14.4 oz). Physical Examination: General: Morbidly obese patient HEENT: normocephalic,atraumatic Neck: no thyromegaly, no lymphadenopathy Chest: good air entry shahram , no added sounds CVS: RRR, no murmurs Abdomen: soft lax, no tenderness, active BS Extremities: no edema, no joint swelling Neuro: AAO x 3. Non-focal Labs: Creatinine 0.9 mg percent, 24 hr urine protein 285 mg Assessment and Plan: Patient is with minimal proteinuria and preserved GFR most likely a combination of morbid obesity and diabetes mellitus as well as hypertension. She is already on angiotensin receptor blockers losartan 100 mg daily. Blood pressure is elevated in the office the goal should be below 130/80, will increase the amlodipine to 10 mg daily, she is going to see primary care physician in February. she is strongly encouraged to lose weight. She will need to stop nonsteroidal anti-inflammatory drugs, because of the joint pains will go ahead and check her complement levels as well as antinuclear antibody. RTC in 6 months, with renal ultrasound if technically possible, urine analysis, spot urine for protein creatinine, MAGUE and complement levels as well as a renal panel. Lauryn Fu MD Division of Nephrology documented in this encounter Plan of Treatment Upcoming Encounters Date Type Department Care Team (Late st Contact Info) Description 12/15/2024 1:00 PM CDT Office Visit [facility] - Internal Med [address] [facility], [place] [address] Neil Velasquez MD [address] [facility] [place] [address] documented as of this encounter Results * US RETROPERITONEAL COMPLETE (06/20/2019 11:26 AM BOXCAR WEIGHER) Anatomical Region Laterality Modality Abdomen Ultrasound 06/20/2019 11:3 6 AM BOXCAR WEIGHER Impressions 06/20/2019 2:07 PM BOXCAR WEIGHER IMPRESSION: Normal renal size. No evidence of nephrolithiasis, hydronephrosis, or solid renal mass. Pelvic soft tissue density, partially imaged. Could not be evaluated due to nondistended bladder but may represent a uterine fibroid. Recommend clinical correlation. Further imaging may be obtained if clinically indicated. Dictated by Wil Sanchez MD (senior vice president). Dr. Levi Mike M.D. have personally reviewed and interpreted this examination/study. This report was electronically signed by Levi GONSALES M.D. ??on 06/20/2019 2:07 PM . Narrative 06/20/2019 2:07 PM BOXCAR WEIGHER EXAMINATION: Complete retroperitoneal sonogram HISTORY: ckd, proteinuria [...] clinically indicated. Dictated by Wil Sanchez MD (senior vice president). I, Dr. Levi GONSALES M.D. have personally reviewed and interpretedthis examination/study. This report was electronically signed by Levi GONSALES M.D. on 06/20/2019 2:07 PM . Roberto Manrique MD US ORDERABLES documented in this encounter Visit Diagnoses Diagnosis Type 2 diabetes mellitus with complication, with long-term current use of insulin (HCC)- Primary Proteinuria, unspecified type Class 3 severe obesity with serious comorbidity and body mass index (BMI) of 50.0 to 59.9 in adult, unspecified obesity type (HCC) Essential hypertension Proteinuria, unspecified type Essential hypertension documented in this encounter
--- OUTSIDE RECORDS SUMMARY | 2024-08-02 10:02 | XMS_ITS | Encounter Summary ---
Author Organization [facility] Health Address [address] [facility] [place] [address] Care Team Providers Care Clamshell Operator Name Role Phone Unavailable Primary Care Provider Unavailabl e Reason for Visit * Reason Comments Appointment Encounter Details Date Type Department Care Team ([facility] Contact Info) Description 12/27/2018 Telephone [facility] - Nephrology [address] [place] [phone] Debbie Nolan RN Appointment Social History Tobacco Use Types Packs/Day [...] encounter Miscellaneous Notes * Telephone Encounter - Debbie Nolan RN - 12/27/2018 3:48 PM CDT Called pt to confirm her Sunday appointment. Pt confirms 9:20 am appointment documented in this encounter Plan of Treatment Upcoming Encounters Date Type Department Care Team ([facility] Contact Info) Description 12/15/2024 1:00 PM CDT Office Visit [facility] - Internal Med [address] [place] [phone] Neil Velasquez MD [address] [facility] [place] [address] documented as of this encounter Visit Diagnoses Not on filedocumented in this encounter
--- OUTSIDE RECORDS SUMMARY | 2024-08-02 10:02 | XMS_ITS | Encounter Summary ---
Author Organization [facility] Health Address [address] [facility] [place] [address] Care Team Providers Care Fine Hairer Name Role Phone Unavailable Primary Care Provider Unavailabl e Encounter Details Date Type Department Care Team (Latest Contact Info) Description 04/30/2019 10:30 AM CDT Clinical Support [facility] Medicine [address] [address] Essential hypertension Social History Tobacco Use Types [...] as of this encounter Progress Notes * Catherine Young APRN-CNP - 04/30/2019 10:57 AM CDT BP presented per MA. Elevated at 170/86. Will start carvedilol 6.25mg BID. RTC in 2 weeks for BP check. GIANNA Fritz documented in this encounter Plan of Treatment Upcoming Encounters Date Type Department Care Team (Late st Contact Info) Description 12/15/2024 1:00 PM CDT Office Visit [facility] - Internal Med [facility] [facility], [place] [address] Neil Velasquez MD [address] [facility] [place] [address] documented as of this encounter Visit Diagnoses Diagnosis Essential hypertension- Primary documented in this encounter
--- OUTSIDE RECORDS SUMMARY | 2024-08-02 10:02 | XMS_ITS | Encounter Summary ---
Author Organization [facility] Health Address [address] [place] [address] Care Team Providers Care Camp Recreation Specialist Name Role Phone Unavailable Primary Care Provider Unavailabl e Encounter Details Date Type Department Care Team (Latest Contact Info) Description 03/22/2017 Hospital Out[facility] [address] [place] [address] Discharge Disposition: Home or Self Care Social [...] Center Physician Group - Internal Med [address] [facility], [place] [address] Neil Velasquez MD [address] [facility] [place] [address] documented as of this encounter Procedures Procedure Name Priority Date/Time Associated Diagnosis Comments MAMMO BILAT SCREENING Routine 03/22/2017 10:59 AM CDT documented in this encounter Results * MAMMO BILAT SCREENING (03/22/2017 10:59 AM CDT) Anatomical Region Laterality Modality Breast Bilateral Other Impressions 03/23/2017 11:35 AM CDT IMPRESSION: No evidence of malignancy ASSESSMENT: BIRADS Category 1: ?? Negative mammogram. RECOMMENDATION: Bilateral screening mammogram in one year. This report was electronically signed by SON ZHANG M.D. ??on 03/23/2017 11:35 AM . Narrative [...] compared with the prior study. Procedure Note Son Zhang MD - 11/09/2017 BILATERAL SCREENING MAMMOGRAM DATE: [...] year. This report was electronically signed by SON ZHANG M.D. on03/23/2017 11:35 AM . Farheen Lafleur MD MAMMO ORDERABLES documented in this encounter Visit Diagnoses Diagnosis Encounter for screening mammogram for malignant neoplasm of breast Other screening mammogram documented in this encounter
--- OUTSIDE RECORDS SUMMARY | 2024-08-02 10:02 | XMS_ITS | Encounter Summary ---
Author Organization [facility] Health Address [address] [facility] [place] [address] Care Team Providers Care Quality Control Industrial Engineer Name Role Phone Unavailable Primary Care Provider Unavailabl e Encounter Details Date Type Department Care Team (Latest Contact Info) Description 10/23/2014 Hospital Outpatient Visit [facility] [address] [place] [id number] Farheen Lafleur MD [address] [facility] [address] [place], [place] [id number] Discharge Disposition: Home or Self Care Social [...] Description 12/15/2024 1:00 PM CDT Office Visit [facility] - Internal Med [address] [facility] [place] [id number] Neil Velasquez MD [address] [facility] [place] [address] documented as of this encounter Procedures Procedure Name Priority Date/Time Associated Diagnosis Comments MAMMO BILAT SCREENING Routine 10/23/2014 10:51 AM CDT documented in this encounter Results * MAMMO BILAT SCREENING (10/23/2014 10:51 AM CDT) Anatomical Region Laterality Modality Breast Bilateral Other Impressions 10/26/2014 9:13 AM CDT IMPRESSION: No mammographic evidence of malignancy. BI-RADS category 1, negative. Return for mammograms in one year or sooner if clinically indicated. I, Dr. LONNY VAN M.D. have personally reviewed and interpreted this examination/study. This report was electronically signed by LONNY VAN M.D. ??on 10/26/2014 9:13 AM . Narrative 10/26/2014 9:13 AM CDT BILATERAL SCREENING MAMMOGRAM DATE: 10/26/2014. COMPARISON: None. HISTORY: Screening mammogram. TECHNIQUE: The breasts were imaged in the cranial caudal and medial lateral oblique views using full field digital mammography and CAD analysis. BREAST COMPOSITION: There are scattered areas of fibroglandular density. RISK ASSESSMENT CALCULATION: Based on the information provided by the patient, her lifetime risk of breast cancer is average (<15%) (calculated at 7.3% by Tyrer- Cuzick model and 8.8% by NCI model). FINDINGS: There is no suspicious mass, clustered microcalcification, or architectural distortion in either breast. Procedure Note Feli Van MD - 11/10/2017 BILATERAL SCREENING MAMMOGRAM DATE: 10/26/2014. COMPARISON: None. HISTORY: Screening mammogram. TECHNIQUE: The breasts were imaged in the cranial caudal and medial lateral obliqueviews using full field digital mammography and CAD analysis. BREAST COMPOSITION: There are scattered areas of fibroglandular density. RISK ASSESSMENT CALCULATION: Based on the information provided by thepatient, her lifetime risk of breast cancer is average (<15%) (calculatedat 7.3% by Tyrer- Cuzick model and 8.8% by NCI model). FINDINGS: There is no suspicious mass, clustered microcalcification, orarchitectural distortion in either breast. IMPRESSION IMPRESSION: No mammographic evidence of malignancy. BI-RADS category 1, negative. Return for mammograms in one year or sooner if clinically indicated. I, Dr. LONNY VAN M.D. have personally reviewed and interpreted thisexamination/study. This report was electronically signed by LONNY VAN M.D. on10/26/2014 9:13 AM . Farheen Lafleur MD MAMMO ORDERABLES documented in this encounter Visit Diagnoses Diagnosis Other screening mammogram documented in this encounter
--- OUTSIDE RECORDS SUMMARY | 2024-08-02 10:02 | XMS_ITS | Encounter Summary ---
Author Organization [facility] Health Address [address] [facility] [place] [address] Care Team Providers Care Teacher Education Director Name Role Phone Unavailable Primary Care Provider Unavailabl e Encounter Details Date Type Department Care Team (Late st Contact Info) Description 11/19/2018 9:50 AM CDT Office Visit [facility] General Internal Medicine [address] [facility] [address] [place] [address] Catherine Salmeron, GRE TUTOR-HOSPICE ADMITTING CLERK [address] [place] [address] Type 2 diabetes mellitus with complication, without long-term current use of insulin (HCC) (Primary Dx); Establishing care with new doctor, encounter for; Essential hypertension; Class 3 severe obesity with serious comorbidity and body mass index (BMI) of 50.0 to 59.9 in adult, unspecified obesity type (HCC); Pain of both shoulder joints; Right upper quadrant abdominal pain; Impacted cerumen of right ear; Encounter for immunization; Healthcare maintenance Social History Tobacco Use Types [...] Reading Time Taken Comments Blood Pressure 140/90 11/19/2018 9:51 AM CDT Pulse 74 11/19/2018 9:51 AM CDT Temperature 36.8 ??C (98.3 ??F) 11/19/2018 9:51 AM CD T Respiratory Rate - - Oxygen Saturation 98% 11/19/2018 9:51 AM CDT Inhaled Oxygen Concentration - - Weight 137.4 kg (303 lb) 11/19/2018 9:51 AM CDT Height - - Body Mass Index 50.42 11/13/2017 9:50 AM CDT documented in this encounter Progress Notes * Catherine Young, GRE TUTOR-HOSPICE ADMITTING CLERK - 11/19/2018 9:45 AM CDT Internal Medicine Primary Care Progress Note CC: Follow up. HPI/Interval History: Mauricio Flores is a 53 year old female presenting to [facility] care with new PCP. Patient last seen in GI clinic on 11/16/[address] Conklin. Has been seen by Dr. Hernández in the interim. Per chart review, patient has poor compliance with medications. DM2. -A1C=8.7, 10/2017. Reports it is now 8.1%. -Medications: Not currently taking any medications. Previously on multiple medications, but has stopped taking them, including injectables, but has never been on insulin. -Eye exam: 1 year ago. Due. -Foot exam: Due. -Statin: Due. -Denies polydipsia, polyphagia, polyuria. HTN. -Currently taking hctz, losartan and amlodipine. Has been out of hctz for months. Was taken off by previous PCP. Notes she does not take amlodipine every day. -Checks BP at home: 150s/80s-90s. -Denies chest pain, palpitations, SOB, headaches, vision changes. -Denies high sodium intake. Obesity. -Walks occasionally for exercise. -Eats a mixture of foods. Went to a diabetes class and is working on portion control. Shoulder Pain. -Intermittent pains. Maybe from carrying purse. -Using voltaren BID PRN. Abdominal pain. -RUQ. -Intermittent. -Reports to having recent MRI with previous PCP. Unsure of the results. Believes she was told by one person it was normal and another it was abnormal. -Has had gallbladder removed in the past. Past Medical History 11/19/2018: Reviewed and Updated; see Epic History tab for details Past Surgical History 11/19/2018: Reviewed and Updated; see Epic History tab for details Social History 11/19/2018: Reviewed and Updated; see Epic History tab for details Family History 11/19/2018: Reviewed and Updated; see Epic History tab for details Current Medications: Reviewed and up to date in [facility] Medication tab Current Outpatient Prescriptions Medication Sig ??? amLODIPine (NORVASC) 5 MG tablet Take 5 mg by mouth once daily ??? aspirin (ASPIRIN) 81 MG tablet ??? diclofenac sodium EC (VOLTAREN) 75 MG tablet Take 75 mg by mouth BID. ??? Glucose Blood (BLOOD GLUCOSE TEST STRIPS) STRP Use 1 strip TID. ??? Glucose Blood (BLOOD GLUCOSE TEST STRIPS) STRP Use 1 strip TID. ??? hydroCHLOROthiazide (HYDRODIURIL) 25 MG tablet Take 25 mg by mouth DAILY. ??? LANCETS SUPER THIN 28G MISC Use TID. ??? losartan (COZAAR) 100 MG tablet TAKE 1 TABLET BY MOUTH DAILY. ??? metFORMIN (GLUCOPHAGE) 500 MG tablet Take 500 mg by mouth BID. (Patient not taking: Reported on11/19/2018) No current facility-administered medications for this visit. Allergies: Allergies Allergen Reactions ??? Hydrocodone-Acetaminophen Rash Vicodin ??? [place] Itching Review of Systems: Gen: Denies fevers, chills Eyes: Denies change in vision Ears, Nose, Mouth, Throat: Denies rhinorrhea, nasal pain; denies dysphagia. Reports decreased hearing in right ear CV: Denies chest pain, palpitations Resp: Denies SOB GI: Denies n/v/d, constipation, melana, BRBPR. Reports intermittent RUQ abdominal pain : Denies dysuria, hematuria, urinary frequency, urinary urgency MS: Reports intermittent right shoulder pain Neuro: Denies focal weakness, LOC Endocrine: Denies polyuria, polydipsia, polyphagia. Physical Exam: BP 140/90 Pulse 74 Temp 98.3 ??F (36.8 ??C) (Oral) Wt 303 lb (137.4 kg) SpO2 98% BMI 50.42 kg/m2 Gen: NAD, conversational, pleasant, cooperative Eyes: EOMI; anicteric, non-injected sclerae Ears: Left TM intact and pearly mcgee without exudates. Unable to view right TM due to cerumen buildup Nose: Turbinates pink and moist Mouth: Moist [...] Reports it was normal Followed by outside PSYCHOLOGIST RESEARCH ASSISTANT. - CRC screening (50-75): 2015. Due 2020. [...] Lipid screening (>45 unless additional risk factors): Due. - Statin (mod/high intensity if clinical ASCVD, LDL>190, age 40-75 +DM & LDL 70- 189, or 10yrrisk >7.5%): Updating lipid profile. - Diabetes screening (BP>135/80, HLD, obesity): Due. - HIV (once, or annually if high risk): Declined at visit 11/19/18. - HepC (once if patient born between 2358-2862): 08/2014. - ASA ppx (>3% 5yr risk): Currently on daily ASA. - Depression screening: PHQ9 11/19/2018=3 -Obesity/physical activity/diet counseling: (Body mass index is 50.42 kg/(m^2). - Immunizations - Influenza: Declined at visit 11/19/18. - HPV (<26): NA - Prevnar (>65 if PPSV23 naive, or at least 1 year after PPSV23): Due at age 65. - Pneumovax (>65 unless risk factors, 6-12mos after Prevnar): Reports she has had in the past. Declines re-vaccination at visit today 11/19/18. - Tdap/Td ([id number]): Due. - Zoster (>60): Due at age 60. Assessment and Plan: 1. Establishing care with new doctor, encounter for -Reviewed PMH with patient. 2. Type 2 diabetes mellitus with complication, without long-term current use of insulin -A1C=8.7, 10/2017. Reports it is now 8.1%. -Medications: Not currently taking any medications. Previously on multiple medications, but has stopped taking them, including injectables, but has never been on insulin. -Restart metformin ER 1000mg PO in the evenings. -Eye exam: 1 year ago. Due. -Foot exam: 11/19/18. -Statin: Due. Wishes to discuss after obtaining labs. - HEMOGLOBIN A1C; Future - MICROALB/CREAT RATIO URINE RANDOM PANEL; Future - HEMOGLOBIN A1C; Future - BASIC METABOLIC PANEL (CALCIUM TOTAL); Future - LIPID PROFILE; Future - metFORMIN ER 24hr (GLUCOPHAGE XR) 500 MG tablet; Take 2 tablets by mouth daily with dinner Dispense: 90 tablet; Refill: 1 3. Essential hypertension -BP today at goal. -Continue losartan 100mg PO daily and amlodipine 5mg PO daily. Stop hctz. Encouraged to take BP medications daily. Verbalized understanding. - BASIC METABOLIC PANEL (CALCIUM TOTAL); Future -Encouraged to follow a heart healthy diet and exercise. 4. Class 3 severe obesity with serious comorbidity and body mass index (BMI) of 50.0 to 59.9 in adult, unspecified obesity type -Body mass index is 50.42 kg/(m^2). - LIPID PROFILE; Future -Encouraged to follow a heart healthy diet and exercise. 5. Pain of both shoulder joints -Intermittently. -Taking diclofenac PRN. Can continue. -Encouraged to trial ice/heat PRN. 6. Right upper quadrant abdominal pain -Intermittent. Worse with certain movements or deep breath. -Had MRI with previous PCP. Unsure of the results. -? Adhesions from cholecystectomy. -Records requested from previous PCP. 7. Impacted cerumen of right ear -Notes decreased hearing in right ear. Unable to view TM due to impaction. - carbamide peroxide (DEBROX) 6.5 % otic solution; Instill 5-10 drops into right ear 2 times daily Dispense: 1 bottles; Refill: 0 -RTC in 1 week for flushing. 8. Encounter for immunization - TDAP VACCINE >7YO IM 9. Healthcare maintenance -As above. -Encouraged to follow a heart healthy diet and exercise. Patient to RTC in 1 week for ear flushing. Call with any questions or concerns in the interim. Catherine Young APRN-HOSPICE ADMITTING CLERK Associated attestation - Alysha Valladares MD - 11/19/2018 3:46 PM CDT Reviewed chart. Agree with assessment and plan per PIANO BUILDER's note. documented in this encounter Plan of Treatment Upcoming Encounters Date Type Department Care Team (Late st Contact Info) Description 12/15/2024 1:00 PM CDT Office Visit [facility] - Internal Med [address] [facility] [place] [address] Neil Velasquez MD [address] [facility] [place] [address] Scheduled Orders Name Type Priority Associated Diagnoses Orde r Schedule MICROALB/CREAT RATIO URINE RANDOM PANEL Lab Routine Type 2 diabetes mellitus with complication, without long-term current use of insulin (HCC) Expected: 11/19/2018 (Approximate), Expires: 12/20/2019 documented as of this encounter Visit Diagnoses Diagnosis Type 2 diabetes mellitus with complication, without long-term current use of insulin (HCC)- Primary Establishing care with new doctor, encounter for Essential hypertension Class 3 severe obesity with serious comorbidity and body mass index (BMI) of 50.0 to 59.9 in adult, unspecified obesity type (HCC) Pain of both shoulder joints Right upper quadrant abdominal pain Abdominal pain, right upper quadrant Impacted cerumen of right ear Impacted cerumen Encounter for immunization Need for other specified prophylactic vaccination against single bacterial disease Healthcare maintenance Routine general medical examination at a health care facility documented in this encounter
--- OUTSIDE RECORDS SUMMARY | 2024-08-02 10:02 | XMS_ITS | Encounter Summary ---
Author Organization [facility] Health Address [address] [place] [address] Care Team Providers Care Supervisor Electric Name Role Phone Unavailable Primary Care Provider Unavailabl e Encounter Details Date Type Department Care Team (Late Contact Info) Description 11/19/2018 Orders Only [facility] General Internal Medicine [address] [address] Catherine Salmeron, SHOE WORKER-ED PHYSICIANS [address] [facility] [address] DIV OF [facility] [place] [address] Type 2 diabetes mellitus with complication, without [...] 1:00 PM CDT Office Visit [facility] - Internal Med [address] [facility], [place] [phone] Neil Velasquez MD [address] [facility] [place] [address] documented as of this encounter Visit Diagnoses Diagnosis Type 2 diabetes mellitus with complication, without long-term current use of insulin (HCC) documented in this encounter
--- OUTSIDE RECORDS SUMMARY | 2024-08-02 10:02 | XMS_ITS | Encounter Summary ---
Author Organization [facility] Address [address] [place] [address] Care Team Providers Care Mri Ct Tech Name Role Phone Rosalee Cano MD Primary Care Provider Rosalee Cano MD Primary Care Provider [phone] Lala Tello MD Primary Care Provider [phone] Rosalee Cano MD Unavailable [phone] Rosalee Cano MD Unavailable [phone] Ronald Casarez MD Primary Care Provider [phone] Lala Tello MD Primary Care Provider [phone] Ronald Casarez MD Primary Care Provider [phone] Randi Gomes DO Unavailable [phone] Randi Gomes DO Primary Care Provider Neil Velasquez MD Primary Care Provider [phone] Reason for Visit * Reason Onset Date Comments LABS ONLY 02/28/2019 Encounter Details Date Type Department Care Team (Late st Contact Info) Description 02/28/2019 Telephone [facility] General Internal Medicine [address] [place] [address] Catherine Salmeron, AIRCRAFT INSTRUMENT REPAIRER-RETAIL BUSINESS DEVELOPMENT MANAGER [address] [place] [address] LABS ONLY Social History Tobacco Use Types [...] encounter Miscellaneous Notes * Telephone Encounter - Mauricio Blackwood - 02/28/2019 11:38 AM CDT Pt called and stated that the lab orders from Dr. Fu, is missing information. Pt was warm transferred to that provider's department for further assistance documented in this encounter Plan of Treatment Upcoming Encounters Date Type Department Care Team (Late st Contact Info) Description 12/15/2024 1:00 PM CDT Office Visit [facility] - Internal Med [address] [place] [address] Neil Velasquez MD [address] [place] [address] documented as of this encounter Visit Diagnoses Not on filedocumented in this encounter Care Teams Mri Ct Tech Relationship Specialty Start Date End Date Rosalee Cano MD [address] OF [facility] [place] [address] PCP - General 12/10/20 04/12/21 Rosalee Cano MD [address] [facility] [place] [address] PCP - General 05/04/21 12/01/21 Lala Tello MD [address] [facility] [place] [address] PCP - General Internal Medicine 12/02/21 11/21/22 Ronald Casarez MD [address] [place] [phone] PCP - General Internal Medicine 11/22/22 11/22/22 Lala Tello MD [address] [facility] [place] [address] PCP - General 11/23/22 12/05/22 Ronlad Casarez MD [address] [place] [phone] PCP - General Internal Medicine 12/06/22 05/20/23 Randi Gomes DO [address] [place] [address] PCP - General Internal Medicine 05/21/23 10/23/23 Neil Velasquez MD [address] [place] [address] PCP - General Internal Medicine 10/24/23 Rosalee Cano MD [address] [facility] [place] [address] Resident Internal Medicine 12/02/21 03/20/23 Rosalee Cano MD [address] [facility] [place] [address] Resident - PCP Internal Medicine 02/20/22 03/13/23 Randi Gomes DO [address] [place] [address] Resident - PCP Internal Medicine 03/14/23 07/02/24 documented as of this encounter
--- OUTSIDE RECORDS SUMMARY | 2024-08-02 10:02 | XMS_ITS | Encounter Summary ---
Author Organization [facility] Health Address [address] [place] [address] Care Team Providers Care Triage Registered Nurse Name Role Phone Unavailable Primary Care Provider Unavailabl e Reason for Referral * Radiology Services (Routine) - Closed Specialty Diagnoses / Procedures Referred By Jimmy schaeffer Referred To Contact Echosonography Diagnoses Pericardial cyst (HCC) Procedures ECHO COMPLETE Catherine Salmeron APRN-CNP [address] [place] [address] [facility] Echo [facility] [place] [address] Referral ID Status Reason Start Date Expiration Date Visits Re quested Visits Authorized [id number] Closed 04/16/2019 10/13/2019 1 1 Reason for Visit * Reason Comments Follow-up Encounter Details Date Type Department Care Team (Late st Contact Info) Description 04/16/2019 10:10 AM CDT Office Visit [facility] General Internal Medicine [address] [place] [phone] Catherine Salmeron APRN-CNP [address] [facility] 2L DIV OF [facility] [place] [place] [address] Right upper quadrant abdominal pain (Primary Dx); Pericardial cyst (HCC); Essential hypertension; Chest pain, unspecified type; Type 2 diabetes mellitus with complication, without long-term current use of insulin (HCC); Nephropathy; Class 3 severe obesity with serious comorbidity and body mass index (BMI) of 45.0 to 49.9 in adult, unspecified obesity type (HCC); Hyperlipidemia, unspecified hyperlipidemia type; Iron deficiency [...] Sign Reading Time Taken Comments Blood Pressure 136/80 04/16/2019 10:19 AM CDT Pulse 67 04/16/2019 10:19 AM CDT Temperature 36.4 ??C (97.6 ??F) 04/16/2019 10:19 AM C DT Respiratory Rate 18 04/16/2019 10:19 AM CDT Oxygen Saturation - - Inhaled Oxygen Concentration - - Weight 136.1 kg (300 lb) 04/16/2019 10:19 AM CDT Height - - Body Mass Index 49.92 12/30/2018 9:20 AM CDT documented in this encounter Patient Instructions * Patient Instructions* Laura Hunt - 04/16/2019 10:21 AM CDT How to Contact Us Between [...] to be seen. Please call us at [phone], option 1 thenoption 1 in the morning you would like to be seen. For scheduling routine appointments, requesting refills or leaving a message for your doctor, the office phone is [phone]. You will be given options to get to the assistance you need. Phone lines are open from 8:00 am to4:30 pm Sunday through Sunday. All prescription refills must be requested during regular office phone hours. Our fax number is [phone]. After hours urgent calls that cannot wait untill phone lines are open on the next are given to the General Internal Medicine physician aggregate conveyor operator. Please call [phone]. Identify yourself as a patient in our practice and give the soda room operator your doctor's name. The soda room operator will contact the physician aggregate conveyor operator. You can generally expect a return call within 30 minutes. On weekends, physicians are seeing hospitalized patients and there maybe a longer wait. Visit our website at [email or web address] for information about our practice and an interactive health encyclopedia. Our clinic's missed appointment policy is: - Patients with 3 consecutively missed appointments OR 3 missed appointments in a 12 month period will no longer be seen by General Internal Medicine. They will be asked to seek Primary Care outside of [facility]. - A missed appointment is defined as: * An appointment cancelled less than 24 hours in advance *Arriving to a scheduled appointment too late to be seen (Patients who arrive to clinic later than their scheduled appointment time may not be seen) * Not showing up for an appointment documented in this encounter Progress Notes * Catherine Young, ANODIC OPERATOR-STRINGED INSTRUMENT TUNER - 04/16/2019 10:10 AM CDT Internal Medicine Primary Care Progress Note CC: Chief Complaint Patient presents with ??? Follow-up HPI/Interval History: Mauricio Flores is a 53 year old female presenting for follow up. Patient last seen in [facility] on 02/25/19. Right upper quadrant abdominal pain -Intermittent. -Unremarkable MRI/MRCP on outside imaging (under media tab). -Pain improved but still comes and goes. -Trying to avoid trigger foods. Has limited soda, which has helped. ?? Pericardial cyst -Noted on outside imaging (under media tab). -Pericardial cyst, 2.9x1.2cm. Discussed with cardiology who recommended yearly ECHOs x 2 and then every 5 years if stable. Usually benign if not enlarging per Dr. Saldana. MRI was completed 11/2018. -Due for repeat ECHO 11/2019. -Denies chest pain, palpitations, SOB, headaches, or vision changes. ?? HTN. -Medications: losartan 100mg, amlodipine 10mg daily and chlorthalidone 25mg daily. Reports to taking the chlorthalidone only sometimes; about 3x monthly. Does not like that it causes increased urination. -Denies chest pain, palpitations, SOB, headaches, or vision changes. -Checking BP at home: 160s/70s. Has wrist cuff at home. ?? DM2. -A1C=7.5%, 02/25/19. -Continue metformin ER 1000mg PO nightly. Reports to taking 500mg daily. Feels metformin has causeddiarrhea. -Eye exam: Due. Encouraged to schedule. -Foot exam: 11/19/18. -Statin: Atorvastatin 40mg nightly started at visit today. -Microalbumin/creatinine ratio: Elevated in 2019. Following with nephrology. ?? Nephropathy/Proteinuria. -Elevated microalbumin/creatinine ratio and proteinuria. -Evaluated by nephrology. Undergoing further work up-still needs US. -To work on BP control, DM2 control and weight loss. To stop NSAIDs. ?? HDL/Obesity. -Taking atorvastatin 40mg nightly. -Denies purposeful exercise. Wt Readings from Last 3 Encounters: 04/16/19 300 lb (136.1 kg) 02/25/19 298 lb (135.2 kg) 12/30/18 289 lb 14.4 oz (131.5 kg) Anemia. -Noted decreased hemoglobin and microcytosis on last labs. -Still has menstrual cycles, but intermittent now. Reports they are heavy when they occur. -Taking iron supplement BID for low ferritin. Past Medical History 04/16/2019: Reviewed and Updated; see Epic History tab for details Past Surgical History 04/16/2019: Reviewed and Updated; see Epic History tab for details Social History 04/16/2019: Reviewed and Updated; see Epic History tab for details Family History 04/16/2019: Reviewed and Updated; see Epic History tab for details Current Medications: Reviewed and up to date in Epic Medication tab Current Outpatient Medications Medication Sig ??? amLODIPine (NORVASC) 10 MG tablet Take 1 tablet by mouth once daily ??? aspirin (ASPIRIN) 81 MG tablet ??? atorvastatin (LIPITOR) 40 MG tablet Take 1 tablet by mouth at bedtime ??? Blood Glucose Monitoring Suppl (ACCU-CHEK GUIDE) w/Device KIT ??? chlorthalidone (HYGROTON) 25 MG tablet Take 1 tablet by mouth once daily ??? ferrous sulfate 325 (65 FE) [...] Allergen Reactions ??? Hydrocodone-Acetaminophen Rash Vicodin ??? [place] Itching Review of Systems: Gen: Denies fevers, chills Eyes: Denies change in vision Ears, Nose, Mouth, Throat: Denies change in hearing; denies rhinorrhea, nasal pain; denies dysphagia CV: Denies chest pain, palpitations Resp: Denies SOB GI: Denies n/v, constipation, melana, BRBPR. Reports intermittent RUQ pain and diarrhea. : Denies dysuria, hematuria, urinary frequency, urinary urgency Neuro: Denies focal weakness, LOC Physical Exam: BP 136/80 (BP SITE: RIGHT ARM, BP POSITION: SITTING, BP CUFF SIZE: 11) Pulse 67 Temp 97.6 ??F (36.4??C) (Oral) Resp 18 Wt 300 lb (136.1 kg) BMI 49.92 kg/m2 Gen: NAD, conversational, pleasant, cooperative Eyes: [...] Reports it was normal. Followed by outside [facility]. - CRC screening (50-75): 2015. Due 2020. - Breast ca screening (50-74; mammogram q1-2yrs >50; if 40-50 d/w patient): 05/2018 per patient.Due. - Breast cancer prevention (tamoxifen if 35-60 [...] +DM &??LDL 70-189, or 10yr risk >7.5%): Currently on statin therapy. - Diabetes screening (BP>135/80, HLD, obesity): 02/2019=7.5%. ? - HIV (once, or annually if high risk): Declined at visit 11/19/18. - HepC (once if patient born between 2647-9166): 08/2014. - ASA ppx (>3% 5yr risk): Currently on daily ASA. - Depression screening: PHQ9??04/16/2019=0. -Obesity/physical activity/diet counseling: Body mass index is 49.92 kg/m??. - Immunizations ?- Influenza: Due. Declined at visit 04/16/19. ?- HPV (<26): NA ?- Prevnar (>65 if PPSV23 naive, or at least 1 year after PPSV23): Due at age 65. ?- Pneumovax (>65 unless risk factors, 6-12mos after Prevnar): Reports she has had in the past. Declines re- vaccination at visit 11/19/18. ?- Tdap/Td ([id number]): 11/19/18. ?- Zoster (>60): Due at age 60. Labs: Personally reviewed. Assessment and Plan: 1. Right upper quadrant abdominal pain -Unremarkable imaging. -Improved after adjusting diet. -Encouraged to avoid dietary triggers. 2. Pericardial cyst -Noted on MRI (under media): -Pericardial cyst, 2.9x1.2cm. -Discussed with cardiology who recommended yearly ECHOs x 2 and then every 5 years if stable. Usually benign if not enlarging per Dr. Saldana. MRI was completed 11/2018. - ECHO COMPLETE; Future 3. Essential hypertension -BP at goal. -TAking losartan 100mg and amlodipine 10mg. Prescribed chlorthalidone but has not taken regularly due to increased urination. -BP at goal without chlorthaidone. Continue losartan and amlodipine. -BP check in 2 weeks. If elevated, will start carvedilol. - BASIC METABOLIC PANEL (CALCIUM TOTAL); Future -Encouraged to follow a heart healthy diet and exercise. 4. Chest pain, unspecified type -Noted at last visit, had occurred 1x, -No further reoccurrences. 5. Type 2 diabetes mellitus with complication, without long-term current use of insulin -A1C=7.5%, 02/25/19. -Continue metformin ER 1000mg PO nightly but only taking 500mg daily. Can continue 500mg daily. Repeat A1C in 1 month. At that time if still elevated, will need to either increase metformin or changemedication due to diarrhea on higher dose. -Eye exam: Due. Encouraged to schedule. -Foot exam: 11/19/18. -Statin: Atorvastatin 40mg nightly started at visit today. -Microalbumin/creatinine ratio: Elevated in 2019. Following with nephrology. - HEMOGLOBIN A1C; Future -Encouraged to follow a heart healthy diet and exercise. 6. Nephropathy -Following with nephrology. -Continued work up/management per nephrology. 7. Class 3 severe obesity with serious comorbidity and body mass index (BMI) of 45.0 to 49.9 in adult, unspecified obesity type -Body mass index is 49.92 kg/m??. Wt Readings from Last 3 Encounters: 04/16/19 300 lb (136.1 kg) 02/25/19 298 lb (135.2 kg) 12/30/18 289 lb 14.4 oz (131.5 kg) -Encouraged to follow a heart healthy diet and exercise. 8. Hyperlipidemia, unspecified hyperlipidemia type -Continue atorvastatin 40mg nightly. -Encouraged to follow a heart healthy diet and exercise. 9. Iron deficiency anemia, unspecified iron deficiency anemia type -?related to menstrual cycles. Still has, but intermittent and heavy. -Continue BID ferrous sulfate. -To schedule with her BUN PANNER. - IRON + TIBC PANEL; Future - CBC W/O DIFFERENTIAL; Future 10. Healthcare maintenance -As above. - MAMMO BILAT SCREENING; Future Patient to RTC in 2 weeks for BP check and 3 months. Call with any questions or concerns in the interim. GIANNA Fritz documented in this encounter Plan of Treatment Upcoming Encounters Date Type Department Care Team (Late st Contact Info) Description 12/15/2024 1:00 PM CDT Office Visit [facility] - Internal Med [address] [facility] [place] [address] Neil Velasquez MD [address] [facility] [place] [address] documented as of this encounter Results * ECHO COMPLETE (06/20/2019 11:15 AM CITY ATTORNEY) Anatomical Region Laterality Modality Echo 06/20/2019 10:0 9 AM CITY ATTORNEY Narrative Procedure Note Ebony Tucker MD - 06/20/2019 Catherine Salmeron ANODIC OPERATOR-STRINGED INSTRUMENT TUNER ECHOCARDIOGRAPHY RADIANT documented in this encounter Visit [...] obesity type (HCC) Hyperlipidemia, unspecified hyperlipidemia type Iron deficiency anemia, unspecified iron deficiency anemia type Healthcare maintenance Routine general medical examination at a health care facility documented in this encounter
--- OUTSIDE RECORDS SUMMARY | 2024-08-02 10:02 | XMS_ITS | Encounter Summary ---
Author Organization [facility] Health Address [address] [place] [address] Care Team Providers Care Senior Geotechnical Engineer Name Role Phone Unavailable Primary Care Provider Unavailabl e Encounter Details Date Type Department Care Team (Late Contact Info) Description 02/28/2019 Orders Only [facility] GI [address] [place] [address] Светлана Mae RN Microcytosis Social History Tobacco Use Types Packs/Day Years [...] [facility] Internal Med [address] [facility] [place] [address] Neil Velasquez MD [address] [facility] [place] [address] documented as of this encounter Procedures Procedure Name Priority Date/Time Associated Diagnosis Comments URINALYSIS W/MICROSCOPIC NO CULTURE 03/07/2019 9:29 AM CDT PROTEIN CREATININE RATIO URINE RANDOM PNL 03/07/2019 9:29 AM CDT MAGUE BLOOD SCREEN W/REFLEX TITER 02/28/2019 11:57 AM CDT COMPLEMENT C4 02/28/2019 11:57 AM CDT COMPLEMENT C3 02/28/2019 11:57 AM CDT CREATININE URINE RANDOM 02/28/2019 11:27 AM CDT CBC W/O DIFFERENTIAL Routine 02/28/2019 8:43 AM CDT Microcytosis IRON + TIBC PANEL Routine 02/28/2019 8:4 3 AM CDT Microcytosis FERRITIN Routine 02/28/2019 8:43 AM CDT Microcytosis documented in this encounter Results * PROTEIN CREATININE RATIO URINE RANDOM PNL (03/07/2019 9:29 AM CDT) Creatinine Urine 120 20 - 275 mg/dL [facility] Protein/Creatini ne Ratio 108 21 - 161 mg/g creat [facility] Protein Random Urine 13 5 - 24 mg/dL [facility] Comment: REPORT COMMENT: SPLIT 02/28/2019 FROM [id number] Test Performed at: [facility] [address] ??[phone] KATHY PEREZ DO,MPH 03/07/2019 9:29 AM CDT 03/07/2019 9:29 AM CDT Roberto Manrique MD LAB - URINE CHEMISTR Y ORDERABLES [facility] [address] [place] [address] * (ABNORMAL) URINALYSIS W/MICROSCOPIC NO CULTURE (03/07/2019 9:29 AM CDT) Color UA YELLOW YELLOW [facility] Appearance CLEAR CLEAR [facility] Specific [place] UA 1.016 1.001 - 1.035 [facility] pH [...] SEEN /LPF [facility] Comment: Test Performed at: [facility] [address] [place], [place] ??[phone] KATHY PEREZ DO,MPH 03/07/2019 9:29 AM CDT 03/07/2019 9:29 AM CDT Roberto Manrique MD LAB - URINALYSIS ORD ERABLES Performing Organization Address [facility] de Phone Number [facility] [id number] [place] [address] * COMPLEMENT C4 (02/28/2019 11:57 AM CDT) Complement C4 41 15 - 57 mg/dL [facility] Comment: REPORT COMMENT: PATIENT UNABLE TO VOID; ADVISED TO RETURN FOR COLLECTION. Test Performed at: [facility] [address] [place], [place] ??[address] KATHY PEREZ DO,MPH 02/28/2019 11:5 7 AM CDT 02/28/2019 12:03 PM CDT Roberto Manrique MD LAB - SEROLOGY ORDER BALWINDER Performing Organization Address [facility] Co de Phone Number [address] [address] * COMPLEMENT C3 (02/28/2019 11:57 AM CDT) Complement C3 152 83 - 193 mg/dL [facility] Comment: Test Performed at: [facility] [address] [place], [place] ??[address] KATHY PEREZ DO,MPH 02/28/2019 11:5 7 AM CDT 02/28/2019 12:03 PM CDT Roberto Manrique MD LAB - CHEMISTRY CHARMAINE DC Performing Organization Address [facility] Co de Phone Number [facility] [address] [place] [address] * MAGUE BLOOD SCREEN W/REFLEX TITER (02/28/2019 11:57 AM CDT) Pathologist [facility] MAGUE Screen NEGATIVE NEGATIVE [facility] Comment: MAGUE IFA is a first line screen for detecting the presence of up to approximately 150 autoantibodies in various autoimmune diseases. A negative MAGUE IFA result suggests MAGUE-associated autoimmune diseases are not present at this time. Visit Physician FAQs for interpretation of all antibodies in the [place], prevalence, and association with diseases at http://education.Claro/ faq/KCS928 ?? Test Performed at: [facility] [place], [place] ??[phone] KATHY PEREZ DO,MPH 02/28/2019 11:5 7 AM CDT 02/28/2019 12:03 PM CDT Roberto Manrique MD LAB - CHEMISTRY CHARMA[place] DC Performing Organization Address [facility] de Phone Number [facility] [address] [place] [address] * (ABNORMAL) CREATININE URINE RANDOM (02/28/2019 11:27 AM CDT) [facility] Creatinine Urine 378(H) 20 - 275 mg/dL [facility] Comment: Verified by repeat analysis. REPORT COMMENT: SPLIT 02/28/2019 FROM [id number] Test Performed at: [facility] [place], [place] ??[phone] KATHY PEREZ DO,MPH 02/28/2019 11:2 7 AM CDT 02/28/2019 11:27 AM CDT Catherine Salmeron APRN-COMPRESSED GASES TESTER LAB - URINE CHEM ISTRY ORDERABLES Performing Organization Address [facility] Co de Phone Number [facility] [address] [place] [address] * (ABNORMAL) CBC W/O DIFFERENTIAL (02/28/2019 8:43 AM CDT) Pathologist [facility] White Blood Cell Count 6.4 3.8 - [...] 12.5 fL [facility] Comment: Test Performed at: [facility] [address] [place] [address] ??[phone] KATHY PEREZ DO,MPH Blood BLOOD SPECIMEN / Unknown 02/28/2019 8:43 AM CDT 02/28/2019 8:51 AM CDT Catherine KATZ LAB - HEMATOLOGY ORDERABLES Performing Organization Address [facility] Co de Phone Number [address] [address] * (ABNORMAL) FERRITIN (02/28/2019 8:43 AM CDT) [facility] Ferritin 6(L) 16 - 232 ng/mL [facility] Comment: REPORT COMMENT: PATIENT UNABLE TO VOID; ADVISED TO RETURN FOR COLLECTION. Test Performed at: [facility] [address] [place] [address] ??[phone] KATHY PEREZ DO,MPH Blood BLOOD SPECIMEN / Unknown 02/28/2019 8:43 AM CDT 02/28/2019 8:51 AM CDT Catherine OCHOACOMPRESSED GASES TESTER LAB - CHEMISTRY ORDERABLES Performing Organization Address [facility] Co de Phone Number [address] [address] * (ABNORMAL) IRON + TIBC PANEL (02/28/2019 8:43 AM CDT) [facility] Iron 22(L) 45 - 160 mcg/dL [facility] TIBC 387 250 - 450 mcg/dL (calc) [facility] % Saturation 6(L) 16 - 45 % (calc) [facility] Comment: Test Performed at: [facility] [address] [place] ??[phone] KATHY PEREZ DO,MPH Blood BLOOD SPECIMEN / Unknown 02/28/2019 8:43 AM CDT 02/28/2019 8:51 AM CDT Catherine Salmeron HOME ENERGY INSPECTOR-COMPRESSED GASES TESTER LAB - CHEMISTRY ORDERABLES [facility] [address] [place] [address] documented in this encounter Visit Diagnoses Diagnosis Microcytosis Other abnormality of red blood cells documented in this encounter
--- OUTSIDE RECORDS SUMMARY | 2024-08-02 10:02 | XMS_ITS | Encounter Summary ---
Author Organization [facility] Health Address [address] [facility] [place] [address] Care Team Providers Care Junior Php Developer Name Role Phone Unavailable Primary Care Provider Unavailabl e Encounter Details Date Type Department Care Team (Late Contact Info) Description 04/06/2016 Anesthesia Historic Visit [facility] [address] [place] [address] Social History Tobacco Use Types Packs/Day Years [...] [facility] [address] [facility] [place] [address] Neil Velasquez MD [address] [facility] [place] [address] documented as of this encounter Visit Diagnoses Not on filedocumented in this encounter
--- OUTSIDE RECORDS SUMMARY | 2024-08-02 10:02 | XMS_ITS | Encounter Summary ---
Author Organization [facility] Health Address [address] [facility] [place] [address] Care Team Providers Care Electroplating Laborer Name Role Phone Unavailable Primary Care Provider Unavailabl e Reason for Visit * Reason Comments Refill Request Encounter Details Date Type Department Care Team (Late Contact Info) Description 01/24/2018 Refill [facility] [address] [facility] [address] [place] [address] Farheen Lafleur MD [address] [address] [place], [place] [id number] Refill Request Social History Tobacco Use Types [...] encounter Miscellaneous Notes * Telephone Encounter - Kayla Sandra - 01/24/2018 8:24 AM CDT Refill request sent to provider per protocol americo reviewed NEREIDA 11/13/17 NOV No appointment made at this time documented in this encounter Plan of Treatment Upcoming Encounters Date Type Department Care Team (Late Contact Info) Description 12/15/2024 1:00 PM CDT Office Visit [facility] - Internal Med [address] [facility] [place] [address] Neil Velasquez MD [address] [facility] [place] [address] documented as of this encounter Visit Diagnoses Not on filedocumented in this encounter
--- OUTSIDE RECORDS SUMMARY | 2024-08-02 10:02 | XMS_ITS | Encounter Summary ---
Author Organization [facility] Health Address [address] [facility] [place] [address] Care Team Providers Care It Infrastructure Specialist Name Role Phone Unavailable Primary Care Provider Unavailabl e Reason for Visit * Reason Onset Date Comments Results 03/03/2019 Encounter Details Date Type Department Care Team (Late st Contact Info) Description 03/03/2019 Telephone [facility] General Internal Medicine [address] [address] Catherine Salmeron APRN-CNP [address] OF [facility] [place] [address] Results Social History Tobacco Use Types Packs/Day [...] Telephone Encounter - Catherine Young APRN-CNP - 03/03/2019 8:09 AM CDT Called patient to review recent lab results: CBC with decreased hemoglobin, microcytotic, with low ferritin levels, iron levels and iron saturation. Notes she is taking iron supplement at home, 27mg. Will send order to pharmacy for ferrous sulfate,325mg PO BID. Believes she has taken this in the past and had issues with cost. To notify me if shehas any issues with cost related to prescription. GIANNA Fritz documented in this encounter Plan of Treatment Upcoming Encounters Date Type Department Care Team (Late st Contact Info) Description 12/15/2024 1:00 PM CDT Office Visit [facility] - Internal Med [address] [facility] [place] [address] Neil Velasquez MD [address] [facility] [place] [address] documented as of this encounter Visit Diagnoses Diagnosis Iron deficiency anemia, unspecified iron deficiency anemia type- Primary documented in this encounter
--- OUTSIDE RECORDS SUMMARY | 2024-08-02 10:02 | XMS_ITS | Encounter Summary ---
Author Organization [facility] Health Address [address] [facility] [place] [address] Care Team Providers Care Ic Designer Standard Cells Name Role Phone Unavailable Primary Care Provider Unavailabl e Reason for Visit * Reason Onset Date Comments MEDICATION REFILL 05/05/2019 Encounter Details Date Type Department Care Team (Late st Contact Info) Description 05/05/2019 Refill [facility] [address] [address] Catherine Salmeron, SUPERVISOR GAS METER REPAIR-[facility] [address] OF [facility] [place] [address] MEDICATION REFILL Social History Tobacco Use Types [...] encounter Miscellaneous Notes * Telephone Encounter - Kelly Westbrook - 05/05/2019 9:57 AM CDT Pt calling in requesting Requested Prescriptions Pending Prescriptions Disp Refills ??? carvedilol (COREG) 6.25 MG tablet 60 tablet 0 Sig: Take 1 tablet by mouth 2 times daily with morning and evening meal Pt states pharmacy did not receive Rx. [facility] to [facility] confirmed Rx was not received. Progress Note 04/30/19 from BECCA Young BP presented per MA. Elevated at 170/86. Will start carvedilol 6.25mg BID. RTC in 2 weeks for BP check. ?? Catherine Young, [facility]# [phone] Routed to provider for further review documented in this encounter Plan of Treatment Upcoming Encounters Date Type Department Care Team (Late st Contact Info) Description 12/15/2024 1:00 PM CDT Office Visit [facility] - Internal Med [address] [facility] [place] [address] Neil Velasquez MD [address] [facility] [place] [address] documented as of this encounter Visit Diagnoses Not on filedocumented in this encounter
--- OUTSIDE RECORDS SUMMARY | 2024-08-02 10:02 | XMS_ITS | Encounter Summary ---
Author Organization [facility] Address [address] [facility] [address] Care Team Providers Care Men'S Leather Dress Belt Maker Name Role Phone Rosalee Cano MD Primary Care Provider [phone] Rosalee Cano MD Primary Care Provider [phone] Lala Tello MD Primary Care Provider [phone] Rosalee Cano MD Unavailable [phone] Rosalee Cano MD Unavailable Ronald Casarze MD Primary Care Provider Lala Tello MD Primary Care Provider [phone] Ronald Casarez MD Primary Care Provider Randi Gomes DO Unavailable [phone] Randi Gomes DO Primary Care Provider Neil Velasquez MD Primary Care Provider Reason for Visit * Reason Onset Date Comments MEDICATION REFILL 01/04/2018 Encounter Details Date Type Department Care Team (Late st Contact Info) Description 01/04/2018 Telephone [facility] [address] [place] [address] Farheen Lafleur MD [address] [place] [address] MEDICATION REFILL Social History Tobacco Use Types [...] encounter Miscellaneous Notes * Telephone Encounter - Bridgette Justice - 01/04/2018 11:09 AM CDT Pt Mauricio Flores Contact # [phone] Patient called in to request that scripts be sent to the [facility] # [id number] [phone] (phone) [phone](fax) for the following medications: Losartan (Cozaar) 100 mg, One Touch (Delica) lancets and test strips. She also asked for Amlodipinewhich I do not see under the medications tab. NEREIDA: 11/13/17 NOV: none scheduled Thank You, documented in this encounter Plan of Treatment Upcoming Encounters Date Type Department Care Team (Late st Contact Info) Description 12/15/2024 1:00 PM CDT Office Visit [facility] - Internal Med [address] [facility] [place] [address] Neil Velasquez MD [address] [facility] [place] [address] documented as of this encounter Visit Diagnoses Not on filedocumented in this encounter Care Teams Men'S Leather Dress Belt Maker Relationship Specialty Start Date End Date Rosalee Cano MD [address] [facility] [address] [place] [address] PCP - General 12/10/20 04/12/21 Rosalee Cano MD [address] [facility] [address] [place] [address] PCP - General 05/04/21 12/01/21 Lala Tello MD [address] [place] [address] PCP - General Internal Medicine 12/02/21 11/21/22 Ronald Casarez MD [address] [place] [id number] PCP - General Internal Medicine 11/22/22 11/22/22 Lala Tello MD [address] [place] [address] PCP - General 11/23/22 12/05/22 Ronald Casarez MD [address] [place] [id number] PCP - General Internal Medicine 12/06/22 05/20/23 Randi Gomes DO [address] [place] [address] PCP - General Internal Medicine 05/21/23 10/23/23 Neil Velasquez MD [address] [place] [address] PCP - General Internal Medicine 10/24/23 Rosalee Cano MD [address] [place] [address] Resident Internal Medicine 12/02/21 03/20/23 Rosalee Cano MD [address] [place] [address] Resident - PCP Internal Medicine 02/20/22 03/13/23 Randi Gomes DO [address] [place] [address] Resident - PCP Internal Medicine 03/14/23 07/02/24 documented as of this encounter
--- OUTSIDE RECORDS SUMMARY | 2024-08-02 10:02 | XMS_ITS | Encounter Summary ---
Author Organization [facility] Health Address [address] [facility] [place] [address] Care Team Providers Care Investment Advisor Name Role Phone Unavailable Primary Care Provider Unavailabl e Reason for Referral * Evaluate & Treat (Routine) - Closed Specialty Diagnoses / Procedures Referred By Jimmy schaeffer Referred To Contact Nephrology Diagnoses Proteinuria, unspecified type Catherine Salmeron APRN-CNP [address] [place] [address] [facility] Neph [address] [facility] [address] [place] [address] Referral ID Status Reason Start Date Expiration Date V isits Requested Visits Authorized [id number] Closed Specialty Services Required 12/03/2018 06/01/2019 1 1 Reason for Visit * Reason Onset Date Comments Follow-up 12/03/2018 Encounter Details Date Type Department Care Team (Late st Contact Info) Description 12/03/2018 Telephone [facility] [address] [place] [address] [address] [place] [address] Catherine Salmeron APRN-CNP [address] [place] [address] Follow-up Social History Tobacco Use Types Packs/Day [...] Telephone Encounter - Catherine Young APRN-CNP - 12/03/2018 9:42 AM CDT Patient presented today in the office with her for his follow up. Discussed protein in urine. Discussed good DM2 and BP control. Will refer to nephrology for further evaluation. Verbalized understanding. GIANNA Fritz documented in this encounter Plan of Treatment Upcoming Encounters Date Type Department Care Team (Late st Contact Info) Description 12/15/2024 1:00 PM CDT Office Visit [facility] - Internal Med [address] [facility] [place] [address] Neil Velasquez MD [address] [facility] [place] [address] Scheduled Referrals Name Type Priority Associated Diagnoses Order Schedule AMB Ref Nephrology - [facility] 302 Outpatient Referral Routine Proteinuria, unspecified type 1 Occurrences starting 12/03/2018 until 12/04/2019 documented as of this encounter Visit Diagnoses Diagnosis Proteinuria, unspecified type- Primary documented in this encounter
--- OUTSIDE RECORDS SUMMARY | 2024-08-02 10:05 | XMS_ITS | Encounter Summary ---
Author Organization [facility] Address [address] [place] [address] Care Team Providers Care Diesel Tractor Engine Mechanic Name Role Phone Unavailable Primary Care Provider Unavailabl e Encounter Details Date Type Department Care Team (Late st Contact Info) Description 06/23/2020 Lab Requisition [facility] Health Community Testing [facility] [address] [place], [place] [id number] [place] [address] [place] [address] Social History Tobacco Use Types Packs/Day Years Used Date Smoking Tobacco: Never Assessed Comments Unknown Sex and Gender Information Value Date Recorded Sex Assigned at Not on file Legal Sex Female 11:26 PM CDT Gender Identity Not on file Sexual Orientation Not on file documented as of this encounter Plan of Treatment Not on file documented as of this encounter Procedures Procedure Name Priority Date/Time Associated Diagnosis Comments SARS-COV-2 PCR [facility] ONLY Routine 06/23/2020 10:10 AM PROOFREADER documented in this encounter Visit Diagnoses Not on filedocumented in this encounter
--- OUTSIDE RECORDS SUMMARY | 2024-08-02 10:05 | XMS_ITS | Encounter Summary ---
Author Organization [facility] Address [address] [place] [address] Care Team Providers Care Golf Caddie Name Role Phone Unavailable Primary Care Provider Unavailabl e Encounter Details Date Type Department Care Team (Late st Contact Info) Description 06/23/2020 10:00 AM CHROMIUM PLATER Rapid Evaluation [place] [facility] Community Testing [facility] [address] [place] [address] Social History Tobacco Use Types Packs/Day Years Used Date Smoking Tobacco: Never Assessed Comments Unknown Sex and Gender Information Value Date Recorded Sex Assigned at Not on file Legal Sex Female 11:26 PM CDT Gender Identity Not on file Sexual Orientation Not on file documented as of this encounter Plan of Treatment Not on file documented as of this encounter Visit Diagnoses Not on filedocumented in this encounter
--- OUTSIDE RECORDS SUMMARY | 2024-08-02 10:05 | XMS_ITS | Continuity of Care Document ---
Author Organization [facility] Address [address] [place] [address] [address] [place] [address] Phone Care Team Providers Care Stockfeed Miller Name Role Phone Kip Hemphill Unavailable Unavailable Advance Directives Directive Yes / No Effective Date File Name No Information Encounters Encounter Description Practice Location Reason(s) For Visit Diagnoses Date Provider Providers Copied on Encounter [facility], [id number] [place] [address] [address], [place], [place], [id number], [place] tel:[phone] [facility] [place][note 2] No Information Mar-2 0-200 6 Joby Shin. [address] [facility] , [address], [place], [address], [place]. tel:[phone] Family History Family Member Type Diagnosis Age At Onset No Information Payers Payer name Insurance type Covered libertarian ID Authoriza tion(s) No Information Social History Type Description Quantity Date Captured Comments Sex Female Smoking Status No Information Chief Complaint And Reason For Visit No Information Reason For Referral Reason For Referral No Information History Of Present Illness Encounter Date Complaint History Of Prese nt Illness No Information Functional Status Date Functional Assessmen t No Information Instructions Date Instruction Additional Infor mation No Information Assessments Type Assessment Date No Information Patient Care Teams Name Effective Dates (start - stop) Status Members No Information
--- OUTSIDE RECORDS SUMMARY | 2024-08-02 10:05 | XMS_ITS | Clinical Summary ---
Author Organization [facility] Address [address] [place] [address] Care Team Providers Care Fine Dining Server Name Role Phone Unavailable Primary Care Provider Unavailabl e Social History Tobacco Use Types Packs/Day Years Used Date Smoking Tobacco: Never Assessed Comments Unknown Sex and Gender Information Value Date Recorded Sex Assigned at Not on file Legal Sex Female 11:26 PM CDT Gender Identity Not on file Sexual Orientation Not on file Plan of Treatment Health Maintenance Due Date Last Done Comments Hepatitis C Virus (HCV) Screening 1965 TdaP Immunization 1965 Hepatitis B Immunization (1 of 3 - 19+ 3-dose series) 1984 Pap Smear 1986 Cervical Cancer Screening (CCS) 1995 HPV/Cotest 1995 Colonoscopy 2010 Colorectal Cancer Screening 2010 Cologuard 2015 Immunochemical Fecal Occult Blood 2015 Mammogram 2015 Zoster Immunization (1 of 2) 2015 SARS-COV-2 Immunization ( season) 2023 08/10/2021, 12/23/2020, 11/27/2020 Influenza Immunization (#1) 2024 Meningococcal Immunization (ACWY) Aged Out No longer eligible b ased on patient's age to complete this topic Pneumococcal Immunization Combined Aged Out No longer eligible b ased on patient's age to complete this topic Rotavirus Immunization Aged Out No lo nger eligible based on patient's age to complete this topic
== END 2024-07-28 10:30 | disposition home or self-care (01) ==
PROVIDERS: PCP Nurse Practitioner; Visit Provider Orthopaedic Surgery
PROC: (CPT 29870; principal; 2024-07-28 07:30)
DX: S83.271A Complex tear of lateral meniscus, current injury, right knee, initial encounter (principal); M17.11 Unilateral primary osteoarthritis, right knee; X58.XXXA Exposure to other specified factors, initial encounter; I10 Essential (primary) hypertension; E11.9 Type 2 diabetes mellitus without complications; E66.01 Morbid (severe) obesity due to excess calories; Z68.41 Body mass index [BMI] 40.0-44.9, adult; Z98.890 Other specified postprocedural states; Z98.51 Tubal ligation status; Z90.49 Acquired absence of other specified parts of digestive tract; Z86.79 Personal history of other diseases of the circulatory system; Z80.0 Family history of malignant neoplasm of digestive organs
CPT/HCPCS: 29881; 82948; A9270; J0690; J1100; J1885; J2003; J2004; J2250; J2405; J2704; J3010; J7120